=== PATIENT | male | born 1970 | race African-American/Black ===

== ENCOUNTER 2019-02-06 05:59 | Day surgery (SDC) | payer MEDICARE, MEDICAID ==
[~2019-02-06] VITALS: Ht 165.1 cm; Wt 69.9 kg
[2019-02-06] VITALS (9 sets, daily range): BP systolic 148–188; BP diastolic 84–104
[2019-02-06] MEDS ORDERED: Proparacaine 0.5% Opth Soln 15ml RIGHT EYE SCH (06:00)
[2019-02-06] MEDS ORDERED: DIPHENHYDRAMINE25 M1 ORAL (06:10)
[2019-02-06] MEDS ORDERED: CARVEDILOL25 MG ORAL (06:10)
[2019-02-06] MEDS ORDERED: CALCITRIOL0.25 MCG PO (06:10)
[2019-02-06] MEDS ORDERED: ALLOPURINOL100 M1 ORAL (06:10)
[2019-02-06] MEDS ORDERED: DOXAZOSIN MESYLA4 MG ORAL (06:10)
[2019-02-06] MEDS ORDERED: AMLODIPINE BESY10 MG ORAL (06:10)
[2019-02-06] MEDS ORDERED: ASPIR 8181 MG ORAL (06:10)
[2019-02-06] MEDS ORDERED: SENNA8.6 M2 PO (06:10)
[2019-02-06] MEDS ORDERED: LIPITOR80 MG ORAL (06:10)
[2019-02-06] MEDS: Tropicamide 1% Opth 15ml Soln RIGHT EYE SCH ×3 (06:24→06:40)
[2019-02-06] MEDS: Cyclopentolate 1% Opth Sol 2ml RIGHT EYE SCH ×3 (06:24→06:40)
[2019-02-06] MEDS: Phenylephrine 2.5% Op 2ml Soln RIGHT EYE SCH ×3 (06:24→06:40)
[2019-02-06] MEDS ORDERED: RENVELA0.8 GM ORAL (06:39)
[2019-02-06] MEDS ORDERED: BSS 500ml btl ONE ×2 (07:06→08:50)
[2019-02-06] MEDS ORDERED: BSS 15ml BTL ONE (07:06)
[2019-02-06] MEDS ORDERED: Povidone-Iodine 5% opth solution ONE (07:07)
[2019-02-06] MEDS ORDERED: Dexamethasone 4mg/ml vial ONE (07:10)
[2019-02-06] MEDS ORDERED: Goniotaire 2.5% Opth Soln - 15ml ONE (07:10)
[2019-02-06] MEDS ORDERED: Kenalog-40 1ml Vial ONE (07:10)
[2019-02-06] MEDS ORDERED: Pred Forte 1% Opth Susp 1ml ONE (07:10)
[2019-02-06] MEDS ORDERED: EPINEPHrine 1mg/1ml Amp ONE (07:10)
[2019-02-06] MEDS ORDERED: Polysporin Opth Oint 3.5gm ONE (07:10)
[2019-02-06] MEDS ORDERED: Lidocaine 2% MPF 5ml Vial INJ ONE (07:10)
[2019-02-06] MEDS ORDERED: Bupivacaine 0.75% 30ml vial INJ ONE (07:11)
[2019-02-06] MEDS ORDERED: Sodium Hyaluronate 10 mg/ml 0.85ml ONE (07:11)
[2019-02-06] MEDS ORDERED: Tetracaine 0.5% Opth 4ml Soln ONE (07:11)
[2019-02-06] MEDS ORDERED: Indocyanine Green 25mg Inj INJ ONE (07:15)
[2019-02-06] MEDS ORDERED: Alfentanil 2ml Inj ONE (07:18)
[2019-02-06] MEDS ORDERED: Sterile Water Irrig 1000ml IRRIG ONE (07:30)
[2019-02-06] MEDS ORDERED: Propofol 200mg/20ml IV ONE (07:30)
[2019-02-06] MEDS ORDERED: LR 1000ml ONE (07:30)
[2019-02-06] MEDS ORDERED: Lidocaine 1% MPF 10mg/ml 5ml ONE (07:30)
[2019-02-06] MEDS ORDERED: NS Irrig 1000ml ONE (07:30)
[2019-02-06] MEDS ORDERED: LR 1000ml 1,000 ML IVLG SCH (07:32)
--- NOTE | 2019-02-06 07:36 | Pre-Procedure Note/Attestation ---
Pre-Procedure Note/Attestation Complete Prior to Procedure Planned Procedure: right Procedure Narrative: PDR/TRD/VH OD Indications for Procedure Pre-Operative Diagnosis: PDR/TRD/VH OD plan for PPV Attestation I attest that I discussed the nature of the procedure; its benefits; risks and complications; and alternatives (and the risks and benefits of such alternatives ), prior to the procedure, with the patient (or the patient's legal product support sales representative). I attest that, if there was a reasonable possibility of needing a blood transfusion, the patient (or the patient's legal product support sales representative) was given the [facility] standardized written summary, pursuant to the [place] Blood Safety Act ([place] Health and Safety Code # 1645, as amended). I attest that I re-evaluated the patient just prior to the surgery and that there has been no change in the patient's H&P, except as documented below: Fredi Page M.D., MD Feb 06, 2019 07:36
--- NOTE | 2019-02-06 07:36 | Operative Note - PDOC ---
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 After review of the risks, benefits, alternative and the patient signed informed consent into the medical chart. Description of Procedure The patient was met in the pre-op area where informed consent was reviewed. The operative eye was verified, marked and dilated. The patient was transferred to the operative suite, where cardiopulmonary monitoring was established and peribulbar anesthetic was administered without complications. The eye was prepped and draped in sterile ophthalmic fashion. Under microscope visualization the 23 gauge infusion line was placed inferotemporally. After visualization of the tip in the vitreous cavity, the infusion line was turned on. The superotemporal and superonasal cannulas were placed. Under BIOM visualization, peripheral and core vitrectomy was performed. As the dense vitreous hemorrhage was cleared, view of the posterior pole was improved. There was tractional retinal detachment with multifocal areas of NVE/Gliosis that were elevated. As the vitreous was trimmed , the pre-retinal membranes were exposed. Kenalog was used to stain and the membranes were trimmed with combination techniques. The chandlier, ILM forceps and high mag contact lens was used to peel the membranes and release all possible traction. The peripheral hemorrhage was trimmed under scleral depression. The retina remained elevated and thus two retinotomies/retinectomies were created temporally and superonasally around two areas of dense gliosis and elevation to relieve the subretinal fluid. Dense gelatinous subretinal material was drained and the retina reattached significantly. The ILM was peeled over the macula partially. Endolaser was applied. PFO was then infused to completely drain the macular fluid and further peripheral PRP was applied. Air-fluid exchange was performed. Silicone oil was infused. The cannulas were removed. The eye maintained normal intraocular pressure. Subconjunctival vancomycin and dexamethasone were administered. The lid speculum was removed. The eye was cleaned of prep and drape. Atropine drop and Maxitrol ointment was applied. A pressure patch was placed. The patient was turned over to the anesthesia team and transferred in stable condition to the PACU. Fredi Page M.D., MD Feb 06, 2019 07:36
--- NOTE | 2019-02-06 07:38 | Anethesia Preoperative Eval ---
Anesthesia Pre-op PMH/ROS General Date of Evaluation: Feb 06, 2019 Time of Evaluation: 07:24 Anesthesiologist: Yomaira ASA Score: ASA 3 Mallampati Score Class I : Soft palate, uvula, fauces, pillars visible Class II: Soft palate, uvula, fauces visible Class III: Soft palate, base of uvula visible Class IV: Only hard plate visible Mallampati Classification: Class II Surgeon: Kaylee Diagnosis: Viteous Hemorrhage OD Surgical Procedure: Vitrectomy OD Anesthesia History: none Family History: no anesthesia problems Allergies: Coded Allergies: LISINOPRIL (Verified Allergy, Severe, Shortness of Breath, 02/05/19) PENICILLINS (Verified Allergy, Severe, throat swelling, 02/05/19) Uncoded Allergies: shellfish (Allergy, Severe, 02/06/19) shortness of breath, vomiting, throat swelling Medications: see eMAR Patient NPO?: Yes Past Medical History Cardiovascular: Reports: HTN, other - HL Pulmonary: Reports: asthma Gastrointestinal/Genitourinary: Reports: ESRD Neurologic/Psychiatric: Reports: CVA Endocrine: Reports: DM Anesthesia Pre-op Phys. Exam Physician Exam Last Vital Signs Date Time Temp Pulse Resp B/P (MAP) Pulse Ox O2 Delivery O2 Flow Rate FiO2 02/06/19 06:42 97.9 101 18 171/95 97 Room Air Constitutional: NAD Neurologic: CN 2-12 intact Cardiovascular: RRR Respiratory: CTA Gastrointestinal: S/NT/ND Airway Exam Mallampati Score: Class II MO: limited ROM: limited Teeth: missing, intact Anesthesia Pre-op A/P Labs Chemistry Test 02/06/19 06:30 Potassium Level 4.7 MMOL/L (3.5-5.1) Risk Assessment & Plan Assessment: ASA 3 Plan: TIVA Status Change Before Surgery: No Devendra Burnette MD Feb 06, 2019 07:38
[2019-02-06] MEDS ORDERED: fentaNYL 100 mcg/2 mL IV PRN (07:45)
[2019-02-06] MEDS ORDERED: Metoclopramide 10mg/2ml Inj IVP PRN (07:45)
[2019-02-06] MEDS ORDERED: Atropine Sulfate 0.4mg/ml inj IVP PRN (07:45)
[2019-02-06] MEDS ORDERED: Ketorolac 30mg Inj IV PRN ×2 (07:45)
[2019-02-06] MEDS ORDERED: HYDROcodone/Acetamin 5/325 tab ORAL PRN (07:45)
[2019-02-06] MEDS ORDERED: oxyCODONE HCL/Acetaminophen 5/325mg ORAL PRN (07:45)
[2019-02-06] MEDS ORDERED: Labetalol 5mg/ml 20ml vial IV PRN (07:45)
[2019-02-06] MEDS ORDERED: HYDROcodone/Acetamin 7.5/325 tab ORAL PRN (07:45)
[2019-02-06] MEDS ORDERED: Hydromorphone 0.5mg/0.5ml inj IVP PRN (07:45)
[2019-02-06] MEDS ORDERED: DiphenhydrAMINE 50mg/ml Inj IVP PRN (07:45)
[2019-02-06] MEDS ORDERED: LORazepam Inj 2mg/ml 1ml IV PRN (07:45)
[2019-02-06] MEDS ORDERED: Midazolam 2mg/2ml Inj IVP PRN (07:45)
[2019-02-06] MEDS ORDERED: Meperidine 50mg/ml Inj(FOR RIGORS ONLY) IVP PRN (07:45)
--- NOTE | 2019-02-06 07:56 | Immediate Post-Op Evaluation ---
Immediate Post-Op Evalulation Immediate Post-Op Evalulation Procedure: Vitrectomy OD Date of Evaluation: Feb 06, 2019 Time of Evaluation: 09:55 IV Fluids: 300 NS Blood Products: 0 Estimated Blood Loss: 2 Urinary Output: 0 Blood Pressure Systolic: 160 Blood Pressure Diastolic: 102 Pulse Rate: 101 Respiratory Rate: 16 O2 Sat by Pulse Oximetry: 97 Temperature (Fahrenheit): 97 Pain Score (1-10): 2 Nausea: No Vomiting: No Complications 0 Patient Status: awake, reacts, patent, none Hydration Status: adequate Devendra Burnette MD Feb 06, 2019 07:56
--- NOTE | 2019-02-06 07:57 | 48 Hour Post Anesthesia Eval ---
Post Anesthesia Evaluation Procedure: Vitrectomy OD Date of Evaluation: Feb 06, 2019 Time of Evaluation: 12:11 Blood Pressure Systolic: 159 0: 101 Pulse Rate: 98 Respiratory Rate: 18 Temperature (Fahrenheit): 97.4 O2 Sat by Pulse Oximetry: 96 Airway: patent Nausea: No Vomiting: No Pain Intensity: 1 Hydration Status: adequate Cardiopulmonary Status: Stable Mental Status/LOC: patient returned to baseline Follow-up Care/Observations: 0 Post-Anesthesia Complications: 0 Follow-up care needed: ready to discharge Devendra Burnette MD Feb 06, 2019 07:57
== END 2019-02-06 11:10 | disposition home or self-care (01) ==
LOC: SUR 05:59
DX: H43.11 Vitreous hemorrhage, right eye (principal); E11.3531 Type 2 diabetes mellitus with proliferative diabetic retinopathy with traction retinal detachment not involving the macula, right eye; E11.22 Type 2 diabetes mellitus with diabetic chronic kidney disease; I12.0 Hypertensive chronic kidney disease with stage 5 chronic kidney disease or end stage renal disease; N18.6 End stage renal disease; Z86.73 Personal history of transient ischemic attack (TIA), and cerebral infarction without residual deficits; Z88.0 Allergy status to penicillin; Z88.8 Allergy status to other drugs, medicaments and biological substances
CPT/HCPCS: 36415; 67042; 82962; 84132; J1100; J2250; J2704; J3301; J3370; J3490; 94003; 94150

== ENCOUNTER 2019-04-19 13:01 | Outpatient (CLI) | payer MEDICARE, MEDICAID ==
[~2019-04-19 13:01] MED LIST: ALLOPURINOL100 M1 ORAL; AMLODIPINE BESY10 MG ORAL; ASPIR 8181 MG ORAL; CALCITRIOL0.25 MCG PO; CARVEDILOL25 MG ORAL; DIPHENHYDRAMINE25 M1 ORAL; DOXAZOSIN MESYLA4 MG ORAL; LIPITOR80 MG ORAL; RENVELA0.8 GM ORAL; SENNA8.6 M2 PO
[2019-04-19 15:24] VITALS: BP 118/64
--- NOTE | 2019-04-19 21:30 | Consultation ---
DATE OF CONSULTATION: 04/19/2019 CHIEF COMPLAINT: Referral for colonoscopy given history of colonic polyps. PAST MEDICAL HISTORY: 1. Hypertension. 2. Asthma. 3. CVA. 4. Diabetes. 5. End-stage renal disease, on hemodialysis. PAST SURGICAL HISTORY: AV shunt placement. MEDICATIONS: Please see the medication reconciliation list. ALLERGIES: Penicillin and lisinopril. FAMILY HISTORY: No family history of GI malignancies. SOCIAL HISTORY: The patient denies any tobacco or alcohol usage. REVIEW OF SYSTEMS: A 10-point review of systems was performed and was only positive for some anus and testicular boils. PHYSICAL EXAMINATION: VITAL SIGNS: Temperature 97.8, blood pressure 118/64, pulse 90, and respirations 20. HEENT: Normocephalic and atraumatic. Sclerae anicteric. NECK: Supple. No evidence of obvious lymphadenopathy. CARDIOVASCULAR: Regular rate and rhythm. Plus S1 and S2. No obvious murmur. LUNGS: Decreased breath sounds bilaterally based on the supine exam. ABDOMEN: Soft and nontender. No rebound. No guarding. No peritoneal sign. EXTREMITIES: No cyanosis. No clubbing. No edema. ASSESSMENT: This is a 48-year-old male with numerous medical problems as listed above. Apparently, he had polyps 3 years ago and was told that he needs to have another colonoscopy in six months from the last colonoscopy, but apparently the patient did not get a colonoscopy done. He is here for repeat colonoscopy. PLAN: The patient was given instruction for colonoscopy. The risks and benefits of procedure was explained to him. We scheduled him for next Tuesday. I want to thank Dr. Zuhair Singleton for this kind referral. Richy Delarosa M.D. DR: SHY JOB#: [id number] CC: Zuhair Singleton M.D.; Fax#: [phone]
== END 2019-04-19 15:01 | disposition home or self-care (01) ==
LOC: PAN 13:01
DX: K63.5 Polyp of colon (principal); I10 Essential (primary) hypertension; E11.22 Type 2 diabetes mellitus with diabetic chronic kidney disease; I12.0 Hypertensive chronic kidney disease with stage 5 chronic kidney disease or end stage renal disease; N18.6 End stage renal disease; Z99.2 Dependence on renal dialysis; Z86.73 Personal history of transient ischemic attack (TIA), and cerebral infarction without residual deficits; Z88.0 Allergy status to penicillin; Z88.8 Allergy status to other drugs, medicaments and biological substances
CPT/HCPCS: G0463

== ENCOUNTER 2019-04-23 08:52 | Day surgery (SDC) | payer MEDICARE, MEDICAID ==
[2019-04-23] VITALS (7 sets, daily range): BP systolic 146–154; BP diastolic 64–87
[~2019-04-23] VITALS: Ht 165.1 cm; Wt 71.7 kg
[~2019-04-23 08:52] MED LIST changes: +LR 1000ml 1,000 ML IVLG SCH
[2019-04-23 10:41] LABS: HEMATOCRIT 39.3 % (42.0-52.0); HEMOGLOBIN 12.8 G/DL (14.2-18.0); MEAN CORPUSCULAR VOLUME 94 FL (80-99); PLATELET COUNT 63 K/UL (150-450); RED BLOOD COUNT 4.19 M/UL (4.70-6.10); RED CELL DISTRIBUTION WIDTH 14.4 % (11.6-14.8); WHITE BLOOD COUNT 4.9 K/UL (4.8-10.8)
[2019-04-23 10:59] LABS: ANION GAP 12 mmol/L (5-15); BLOOD UREA NITROGEN 60 mg/dL (7-18); CALCIUM 9.6 MG/DL (8.5-10.1); CARBON DIOXIDE 25 MMOL/L (21-32); CHLORIDE 102 MMOL/L (98-107); CREATININE 10.3 MG/DL (0.55-1.30); POTASSIUM 4.9 MMOL/L (3.5-5.1); SODIUM 139 MMOL/L (136-145)
[2019-04-23] MEDS ORDERED: NS 110ml ONE (11:00)
[2019-04-23] MEDS ORDERED: Propofol 200mg/20ml IV ONE (11:00)
[2019-04-23] MEDS ORDERED: Lidocaine 1% MPF 10mg/ml 5ml ONE (11:00)
[2019-04-23 11:04] LABS: ALANINE AMINOTRANSFERASE 10 U/L (12-78); ALBUMIN 3.3 G/DL (3.4-5.0); ALBUMIN/GLOBULIN RATIO 0.7 (1.0-2.7); ALKALINE PHOSPHATASE 103 U/L (46-116); ASPARTATE AMINO TRANSFERASE 17 U/L (15-37); BILIRUBIN,TOTAL 0.7 MG/DL (0.2-1.0)
--- NOTE | 2019-04-23 11:07 | Pre-Procedure Note/Attestation ---
Pre-Procedure Note/Attestation Complete Prior to Procedure Planned Procedure: not applicable Procedure Narrative: colonoscopy Indications for Procedure Pre-Operative Diagnosis: screening Attestation I attest that I discussed the nature of the procedure; its benefits; risks and complications; and alternatives (and the risks and benefits of such alternatives ), prior to the procedure, with the patient (or the patient's legal associate financial representative). I attest that, if there was a reasonable possibility of needing a blood transfusion, the patient (or the patient's legal associate financial representative) was given the [facility] standardized written summary, pursuant to the [place] Blood Safety Act ([place] Health and Safety Code # 1645, as amended). I attest that I re-evaluated the patient just prior to the surgery and that there has been no change in the patient's H&P, except as documented below: Richy Delarosa MD Apr 23, 2019 11:07
--- NOTE | 2019-04-23 11:07 | Short Stay Surgery H&P ---
History of Present Illness History of Present Illness Chief Complaint see recent office note HPI Robson Nesbitt is a 48 year old male who was admitted on for Colon Polyps Patient History Allergies: Coded Allergies: LISINOPRIL (Verified Allergy, Severe, Shortness of Breath, 04/23/19) THROAT SWELLS UP PENICILLINS (Verified Allergy, Severe, throat swelling, 02/05/19) Uncoded Allergies: shellfish (Allergy, Severe, 02/06/19) shortness of breath, vomiting, throat swelling Medication History Scheduled Allopurinol* (Allopurinol*), 100 MG ORAL DAILY, (Reported) Amlodipine Besylate* (Amlodipine Besylate*), 30 MG ORAL DAILY, (Reported) Aspirin* (Aspir 81*), 81 MG ORAL DAILY, (Reported) Calcitriol (Calcitriol), 0.25 MCG PO THREE TIMES A WEEK, (Reported) Carvedilol* (Carvedilol*), 25 MG ORAL EVERY 12 HOURS, (Reported) Doxazosin Mesylate* (Doxazosin Mesylate*), 8 MG ORAL BID, (Reported) Sevelamer Carbonate* (Renvela*), 800 MG ORAL THREE TIMES A DAY, (Reported) Physical Exam Vital Signs Last Vital Signs Date Time Temp Pulse Resp B/P (MAP) Pulse Ox O2 Delivery O2 Flow Rate FiO2 04/23/19 09:56 97.9 94 20 146/77 98 Room Air Labs Laboratory Tests Test 04/23/19 10:25 White Blood Count 4.9 K/UL (4.8-10.8) Red Blood Count 4.19 M/UL (4.70-6.10) L Hemoglobin 12.8 G/DL (14.2-18.0) L Hematocrit 39.3 % (42.0-52.0) L Mean Corpuscular Volume 94 FL (80-99) Mean Corpuscular Hemoglobin 30.4 PG (27.0-31.0) Mean Corpuscular Hemoglobin Concent 32.4 G/DL (32.0-36.0) Red Cell Distribution Width 14.4 % (11.6-14.8) Platelet Count 63 K/UL (150-450) L Mean Platelet Volume 10.7 FL (6.5-10.1) H Neutrophils (%) (Auto) % (45.0-75.0) Lymphocytes (%) (Auto) % (20.0-45.0) Monocytes (%) (Auto) % (1.0-10.0) Eosinophils (%) (Auto) % (0.0-3.0) Basophils (%) (Auto) % (0.0-2.0) Neutrophils % (Manual) Pending Lymphocytes % (Manual) Pending Platelet Estimate Pending Platelet Morphology Pending Sodium Level 139 MMOL/L (136-145) Potassium Level 4.9 MMOL/L (3.5-5.1) Chloride Level 102 MMOL/L (98-107) Carbon Dioxide Level 25 MMOL/L (21-32) Anion Gap 12 mmol/L (5-15) Blood Urea Nitrogen 60 mg/dL (7-18) H Creatinine 10.3 MG/DL (0.55-1.30) H Estimat Glomerular Filtration Rate 6.5 mL/min (>60) Glucose Level 100 MG/DL (74-106) Calcium Level 9.6 MG/DL (8.5-10.1) Total Bilirubin 0.7 MG/DL (0.2-1.0) Aspartate Amino Transf (AST/SGOT) 17 U/L (15-37) Alanine Aminotransferase (ALT/SGPT) 10 U/L (12-78) L Alkaline Phosphatase 103 U/L (46-116) Total Protein 8.1 G/DL (6.4-8.2) Albumin 3.3 G/DL (3.4-5.0) L Globulin 4.8 g/dL Albumin/Globulin Ratio 0.7 (1.0-2.7) L Plan Attestation Are the patient's medical conditions optimized for surgery? Richy Delarosa MD Apr 23, 2019 11:07
[2019-04-23] MEDS ORDERED: LR 1000ml 1,000 ML IVLG SCH (11:10)
[2019-04-23] MEDS ORDERED: Midazolam 2mg/2ml Inj IVP PRN (11:15)
[2019-04-23] MEDS ORDERED: fentaNYL 100 mcg/2 mL IV PRN (11:15)
[2019-04-23] MEDS ORDERED: Atropine Inj 1mg/10ml Syr IV PRN (11:15)
[2019-04-23] MEDS ORDERED: DiphenhydrAMINE 50mg/ml Inj IVP PRN (11:15)
--- NOTE | 2019-04-23 11:15 | Anethesia Preoperative Eval ---
Anesthesia Pre-op PMH/ROS General Date of Evaluation: Apr 23, 2019 Time of Evaluation: 11:03 Anesthesiologist: christofer ASA Score: ASA 4 Mallampati Score Class I : Soft palate, uvula, fauces, pillars visible Class II: Soft palate, uvula, fauces visible Class III: Soft palate, base of uvula visible Class IV: Only hard plate visible Mallampati Classification: Class II Surgeon: norma Diagnosis: colon polyps Surgical Procedure: colonoscopy Anesthesia History: none Social History: current smoker Family History: no anesthesia problems Allergies: Coded Allergies: LISINOPRIL (Verified Allergy, Severe, Shortness of Breath, 04/23/19) THROAT SWELLS UP PENICILLINS (Verified Allergy, Severe, throat swelling, 02/05/19) Uncoded Allergies: shellfish (Allergy, Severe, 02/06/19) shortness of breath, vomiting, throat swelling Medications: see eMAR Patient NPO?: Yes Past Medical History Cardiovascular: Reports: HTN Pulmonary: Reports: asthma Gastrointestinal/Genitourinary: Reports: ESRD - on hd (, , ) Endocrine: Reports: DM Anesthesia Pre-op Phys. Exam Physician Exam Last Vital Signs Date Time Temp Pulse Resp B/P (MAP) Pulse Ox O2 Delivery O2 Flow Rate FiO2 04/23/19 09:56 97.9 94 20 146/77 98 Room Air Constitutional: NAD Neurologic: CN 2-12 intact Cardiovascular: RRR Respiratory: CTA Gastrointestinal: S/NT/ND Airway Exam Mallampati Score: Class II MO: limited Neck: flexible TMD: 2fb ROM: limited Teeth: missing Anesthesia Pre-op A/P Labs Hematology Test 04/23/19 10:25 White Blood Count 4.9 K/UL (4.8-10.8) Red Blood Count 4.19 M/UL (4.70-6.10) L Hemoglobin 12.8 G/DL (14.2-18.0) L Hematocrit 39.3 % (42.0-52.0) L Mean Corpuscular Volume 94 FL (80-99) Mean Corpuscular Hemoglobin 30.4 PG (27.0-31.0) Mean Corpuscular Hemoglobin Concent 32.4 G/DL (32.0-36.0) Red Cell Distribution Width 14.4 % (11.6-14.8) Platelet Count 63 K/UL (150-450) L Mean Platelet Volume 10.7 FL (6.5-10.1) H Neutrophils (%) (Auto) % (45.0-75.0) Lymphocytes (%) (Auto) % (20.0-45.0) Monocytes (%) (Auto) % (1.0-10.0) Eosinophils (%) (Auto) % (0.0-3.0) Basophils (%) (Auto) % (0.0-2.0) Differential Total Cells Counted 100 Neutrophils % (Manual) 55 % (45-75) Lymphocytes % (Manual) 26 % (20-45) Monocytes % (Manual) 15 % (1-10) H Eosinophils % (Manual) 4 % (0-3) H Basophils % (Manual) 0 % (0-2) Band Neutrophils 0 % (0-8) Platelet Estimate Adequate Platelet Morphology Normal Chemistry Test 04/23/19 10:25 Sodium Level 139 MMOL/L (136-145) Potassium Level 4.9 MMOL/L (3.5-5.1) Chloride Level 102 MMOL/L (98-107) Carbon Dioxide Level 25 MMOL/L (21-32) Anion Gap 12 mmol/L (5-15) Blood Urea Nitrogen 60 mg/dL (7-18) H Creatinine 10.3 MG/DL (0.55-1.30) H Estimat Glomerular Filtration Rate 6.5 mL/min (>60) Glucose Level 100 MG/DL (74-106) Calcium Level 9.6 MG/DL (8.5-10.1) Total Bilirubin 0.7 MG/DL (0.2-1.0) Aspartate Amino Transf (AST/SGOT) 17 U/L (15-37) Alanine Aminotransferase (ALT/SGPT) 10 U/L (12-78) L Alkaline Phosphatase 103 U/L (46-116) Total Protein 8.1 G/DL (6.4-8.2) Albumin 3.3 G/DL (3.4-5.0) L Globulin 4.8 g/dL Albumin/Globulin Ratio 0.7 (1.0-2.7) L Studies Pre-op Studies: EKG - nsr, lvh, prolonged qt Risk Assessment & Plan Assessment: asa4 Plan: mac Status Change Before Surgery: No Pre-Antibiotics Drug: na Willis,Cecy MD Apr 23, 2019 11:15
--- NOTE | 2019-04-23 11:40 | Endoscopy Procedure Note ---
Endoscopy Procedure Note General Indication for Procedure: screening colon, Procedures Performed: colonoscopy Operative Findings/Diagnosis: hemorrhoids Specimen: none Pt Tolerated Procedure Well: Yes Estimated Blood Loss: none Anesthesia Anesthesiologist: eunice Anesthesia: MAC Inserted Devices Implant(s) used?: No Quality Quality of Bowel Preparation: Fair Did scope reach the cecum?: Yes Was there any complications?: No GI Core Measures 50 yrs or older w/o bx or poly: No 10yrs. F/U recommended: Yes If not recommended, why?: Above average risk 18 years or older w/prev. colo: Yes <3yrs. since last colonoscopy: No Richy Delarosa MD Apr 23, 2019 11:40
--- NOTE | 2019-04-23 11:51 | Immediate Post-Op Evaluation ---
Immediate Post-Op Evalulation Immediate Post-Op Evalulation Procedure: colonoscopy Date of Evaluation: Apr 23, 2019 Time of Evaluation: 11:50 IV Fluids: 100ml 0.9ns Blood Products: none Estimated Blood Loss: negligible Blood Pressure Systolic: 154 Blood Pressure Diastolic: 64 Pulse Rate: 95 Respiratory Rate: 18 O2 Sat by Pulse Oximetry: 100 Temperature (Fahrenheit): 97.3 Pain Score (1-10): 0 Nausea: No Vomiting: No Complications none Patient Status: awake, reacts, patent Hydration Status: adequate Drug: Cecy Kim MD Apr 23, 2019 11:51
--- NOTE | 2019-04-23 11:51 | 48 Hour Post Anesthesia Eval ---
Post Anesthesia Evaluation Procedure: colonoscopy Date of Evaluation: Apr 23, 2019 Time of Evaluation: 11:52 Blood Pressure Systolic: 153 0: 67 Pulse Rate: 87 Respiratory Rate: 18 Temperature (Fahrenheit): 97.3 O2 Sat by Pulse Oximetry: 100 Airway: patent Nausea: No Vomiting: No Pain Intensity: 0 Hydration Status: adequate Cardiopulmonary Status: stable Mental Status/LOC: patient returned to baseline Post-Anesthesia Complications: none Follow-up care needed: N/A Cecy Pedro MD Apr 23, 2019 11:51
--- NOTE | 2019-04-23 19:45 | Procedure Note ---
DATE OF PROCEDURE: 04/23/2019 SURGEON: Richy Delarosa M.D. PROCEDURE: Colonoscopy. ANESTHESIA: Dr. Cook. INSTRUMENT: Olympus adult flexible colonoscope. INDICATIONS: Screening colonoscopy evaluation. REASON FOR PROCEDURE: The procedure, risks, benefits, and possible consequences, including hemorrhage, aspiration, perforation and infection, and alternative treatments, were explained to the patient/legal guardian by Dr. Richy Delarosa and the patient/legal guardian understood and accepted these risks. PROCEDURE: After informed consent was obtained and the patient was adequately sedated, first rectal exam was performed, which was normal. Then, the scope was advanced from rectum into the cecum. Quality of prep unfortunately was poor in the right colon, much better in the left colon. I would say about 30% of the right colon was not examined given this prep especially in cecum area. There was a tattooed area at about 30 cm from the anal verge mostly probably from prior polypectomy site. We could not see any polyp in this examination although the prep was not adequate. Retroflexion of rectum showed small nonbleeding internal hemorrhoids. SUMMARY OF FINDINGS: 1. Poor colonic prep. 2. Internal hemorrhoids. RECOMMENDATIONS: Given this prep, we will recommend repeat colonoscopy in one year for evaluation of right colon. Richy Delarosa M.D. DR: Ana Lilia JOB#: [id number] CC:
== END 2019-04-23 12:45 | disposition home or self-care (01) ==
LOC: GAS 08:52
DX: Z12.11 Encounter for screening for malignant neoplasm of colon (principal); K64.8 Other hemorrhoids; I12.0 Hypertensive chronic kidney disease with stage 5 chronic kidney disease or end stage renal disease; E11.22 Type 2 diabetes mellitus with diabetic chronic kidney disease; N18.6 End stage renal disease; Z99.2 Dependence on renal dialysis; Z88.0 Allergy status to penicillin; Z88.8 Allergy status to other drugs, medicaments and biological substances; Z79.82 Long term (current) use of aspirin; Z79.899 Other long term (current) drug therapy
CPT/HCPCS: 36415; 80053; 82962; 85007; 85025; 93005; G0121; J2704; 94003; 94150

== ENCOUNTER 2019-06-25 13:02 | Outpatient (CLI) | payer MEDICARE, MEDICAID ==
[~2019-06-25 13:02] MED LIST changes: -LR 1000ml 1,000 ML IVLG SCH
--- NOTE | 2019-06-25 13:50 | General Progress Note ---
Assessment/Plan Problem List: (1) Constipation ICD Codes: K59.00 - Constipation, unspecified SNOMED: 77432103 (2) Colon polyps ICD Codes: K63.5 - Polyp of colon SNOMED: 34294011 Assessment/Plan: s/p colonoscopy poor prep SUMMARY OF FINDINGS: 1. Poor colonic prep. 2. Internal hemorrhoids. RECOMMENDATIONS: Given this prep, we will recommend repeat colonoscopy in one year for evaluation of right colon. Subjective ROS Limited/Unobtainable: Yes Allergies: Coded Allergies: LISINOPRIL (Verified Allergy, Severe, Shortness of Breath, 04/23/19) THROAT SWELLS UP PENICILLINS (Verified Allergy, Severe, throat swelling, 02/05/19) Uncoded Allergies: shellfish (Allergy, Severe, 02/06/19) shortness of breath, vomiting, throat swelling Objective General Appearance: alert EENT: normal ENT inspection Neck: supple Cardiovascular: normal rate Respiratory/Chest: lungs clear Abdomen: non tender, soft, hypoactive bowel sounds Extremities: non-tender Richy Delarosa MD Jun 25, 2019 13:50
[2019-06-25 15:31] VITALS: BP 121/67
== END 2019-06-25 15:56 | disposition home or self-care (01) ==
LOC: PAN 13:02
DX: K59.00 Constipation, unspecified (principal); K63.5 Polyp of colon; K64.8 Other hemorrhoids

== ENCOUNTER 2019-07-16 07:14 | Inpatient (IN) | payer MEDICARE, MEDICAID ==
[~2019-07-16] VITALS: Ht 166.4 cm; Wt 68.9 kg
[2019-07-16] VITALS (29 sets, daily range): BP systolic 79–169; BP diastolic 41–100
--- NOTE | 2019-07-16 08:20 | NUR ---
IV NS WAS STARTED BY VIRGILIO PEREZ RN. NO S/S OF INFILTRATION.
[2019-07-16] MEDS ORDERED: Propofol 200mg/20ml IV ONE (09:00)
[2019-07-16] MEDS ORDERED: Sterile Water Irrig 1000ml IRRIG ONE (09:00)
[2019-07-16] MEDS ORDERED: LR 1000ml ONE (09:00)
[2019-07-16] MEDS ORDERED: Flumazenil 0.1mg/ml 5ml Inj IV ONE (09:00)
--- NOTE | 2019-07-16 09:00 | Pre-Procedure Note/Attestation ---
Pre-Procedure Note/Attestation Complete Prior to Procedure Procedure Narrative: Examination Under Anesthesia and Excision of Scrotal lesion Indications for Procedure Pre-Operative Diagnosis: rectal pain and non healing scrotal wound Attestation I attest that I discussed the nature of the procedure; its benefits; risks and complications; and alternatives (and the risks and benefits of such alternatives ), prior to the procedure, with the patient (or the patient's legal membership sales representative). I attest that, if there was a reasonable possibility of needing a blood transfusion, the patient (or the patient's legal membership sales representative) was given the [facility] standardized written summary, pursuant to the [place] Blood Safety Act ([place] Health and Safety Code # 1645, as amended). I attest that I re-evaluated the patient just prior to the surgery and that there has been no change in the patient's H&P, except as documented below: Zenon Galloway Jul 16, 2019 09:00
[2019-07-16] MEDS ORDERED: LR 1000ml 1,000 ML IVLG SCH (09:05)
[2019-07-16] MEDS ORDERED: Gelfoam Size TOPIC ONE (09:09)
[2019-07-16] MEDS ORDERED: Lidocaine HCl 2% Jelly 6ml Tube TOPIC ONE (09:09)
[2019-07-16] MEDS ORDERED: Bupivacaine w/Epi 0.5% 30ml Vial INJ ONE (09:09)
--- NOTE | 2019-07-16 09:14 | Anethesia Preoperative Eval ---
Anesthesia Pre-op PMH/ROS General Date of Evaluation: Jul 16, 2019 Time of Evaluation: 09:16 Anesthesiologist: Yomaira ASA Score: ASA 3 Mallampati Score Class I : Soft palate, uvula, fauces, pillars visible Class II: Soft palate, uvula, fauces visible Class III: Soft palate, base of uvula visible Class IV: Only hard plate visible Mallampati Classification: Class III Surgeon: Taran Diagnosis: Scrotal Mass Surgical Procedure: Anal Exam Under Anesthesia Anesthesia History: none Family History: no anesthesia problems Allergies: Coded Allergies: LISINOPRIL (Verified Allergy, Severe, Shortness of Breath, 07/02/19) THROAT SWELLS UP PENICILLINS (Verified Allergy, Severe, throat swelling, 07/02/19) Uncoded Allergies: shellfish (Allergy, Severe, 02/06/19) shortness of breath, vomiting, throat swelling Medications: see eMAR Patient NPO?: Yes Past Medical History Cardiovascular: Reports: HTN, other - HL Pulmonary: Reports: asthma Gastrointestinal/Genitourinary: Reports: GERD, ESRD - Dialysis, other - Hemorrhoids Neurologic/Psychiatric: Reports: CVA Endocrine: Reports: DM HEENT: Reports: cataract (L), cataract (R) PSxH Narrative: Cat Ext IOL Bilateral, Testicle Sx Anesthesia Pre-op Phys. Exam Physician Exam Last Vital Signs Date Time Temp Pulse Resp B/P (MAP) Pulse Ox O2 Delivery O2 Flow Rate FiO2 07/16/19 08:23 Room Air 07/16/19 08:09 97.8 96 20 148/78 97 Constitutional: NAD Neurologic: CN 2-12 intact Cardiovascular: RRR Respiratory: CTA Gastrointestinal: S/NT/ND Airway Exam Mallampati Score: Class III MO: limited ROM: limited Teeth: missing, intact Anesthesia Pre-op A/P Labs Chemistry Test 07/16/19 09:03 Potassium Level Pending Risk Assessment & Plan Assessment: ASA 3 Plan: TIVA, SED Status Change Before Surgery: No Pre-Antibiotics Dru Grams Cefoxitin IV Given Within 1 Hr of Incision: Yes Time Given: 09:41 Devendra Burnette MD Jul 16, 2019 09:14
[2019-07-16] MEDS ORDERED: Acetaminophen (Non formulary) 100 ML IV ONE (09:15)
[2019-07-16] MEDS ORDERED: Hydromorphone 0.5mg/0.5ml inj IVP PRN (09:15)
[2019-07-16] MEDS ORDERED: Labetalol 5mg/ml 20ml vial IV PRN (09:15)
[2019-07-16] MEDS ORDERED: fentaNYL 100 mcg/2 mL IV PRN (09:15)
[2019-07-16] MEDS ORDERED: LORazepam Inj 2mg/ml 1ml IV PRN ×2 (09:15→14:00)
[2019-07-16] MEDS ORDERED: Meperidine 50mg/ml Inj(FOR RIGORS ONLY) IVP PRN (09:15)
[2019-07-16] MEDS ORDERED: HYDROcodone/Acetamin 5/325 tab ORAL PRN (09:15)
[2019-07-16] MEDS ORDERED: Midazolam 2mg/2ml Inj IVP PRN (09:15)
[2019-07-16] MEDS ORDERED: Atropine Sulfate 0.4mg/ml inj IVP PRN (09:15)
[2019-07-16] MEDS ORDERED: DiphenhydrAMINE 50mg/ml Inj IVP PRN (09:15)
[2019-07-16] MEDS ORDERED: oxyCODONE HCL/Acetaminophen 5/325mg ORAL PRN (09:15)
[2019-07-16] MEDS ORDERED: HYDROcodone/Acetamin 7.5/325 tab ORAL PRN (09:15)
[2019-07-16] MEDS ORDERED: Metoclopramide 10mg/2ml Inj IVP PRN ×2 (09:15→13:45)
[2019-07-16] MEDS ORDERED: Ketorolac 30mg Inj IV PRN ×2 (09:15)
--- NOTE | 2019-07-16 09:20 | Immediate Post-Op Evaluation ---
Immediate Post-Op Evalulation Immediate Post-Op Evalulation Procedure: Anl Exam Under Anesthesia Date of Evaluation: Jul 16, 2019 Time of Evaluation: 10:57 IV Fluids: 700 NS Blood Products: 0 Estimated Blood Loss: 5 Urinary Output: 0 Blood Pressure Systolic: 99 Blood Pressure Diastolic: 72 Pulse Rate: 94 Respiratory Rate: 12 O2 Sat by Pulse Oximetry: 100 Temperature (Fahrenheit): 97.4 Pain Score (1-10): 2 Nausea: No Vomiting: No Complications 0 Patient Status: awake, reacts, patent, none Hydration Status: adequate Dru Grams Cefoxitin IV Given Within 1 Hr of Incision: Yes Time Given: 09:41 Devendra Burnette MD Jul 16, 2019 09:20
[2019-07-16] MEDS ORDERED: NS Irrig 1000ml IRRIG ONE ×2 (09:22→09:56)
[2019-07-16] MEDS ORDERED: Sodium Chloride 10ml vial INJ ONE (09:23)
[2019-07-16] MEDS ORDERED: Lidocaine 1% Plain 30 ml INJ ONE (09:23)
[2019-07-16] MEDS ORDERED: cefOXitin 2gm Inj ONE (09:26)
[2019-07-16] MEDS ORDERED: Bacitracin 50000 Units Vial ONE (09:29)
[2019-07-16] MEDS ORDERED: EPINEPHrine 1mg/1ml Amp ONE (10:28)
[2019-07-16] MEDS ORDERED: Atropine Inj 1mg/10ml Syr ONE (10:28)
--- NOTE | 2019-07-16 10:46 | NUR ---
1046- RECEIVED FROM OR STATUS POST CODE,HOOKED TO HEALTH SAFETY ENGINEER SINUS TACH HR 101 RR 14 BP 96/72, ATTACHED TO [facility] VENT WITH THE FF SETTINGS SIMV 12 TV 500 FIO2 100% AND PEEP OF 5. PATIENT STILL UNRESPONSIVE, PUPIL EQUALLY REACTIVE TO LIGHT, NO RESPONSE YET TO PAINFUL STIMULI.ANESTHESIOLOGIST AT BED SIDE.WILL CONTINUE TO MONITOR.
[2019-07-16 12:14] LABS: BASOPHILS % (AUTO) 0.4 % (0.0-2.0); EOSINOPHILS % (AUTO) 3.9 % (0.0-3.0); HEMATOCRIT 38.9 % (42.0-52.0); HEMOGLOBIN 12.7 G/DL (14.2-18.0); LYMPHOCYTES % (AUTO) 9.7 % (20.0-45.0); MEAN CORPUSCULAR VOLUME 101 FL (80-99); MONOCYTES % (AUTO) 3.5 % (1.0-10.0); NEUTROPHILS % (AUTO) 82.5 % (45.0-75.0); PLATELET COUNT 113 K/UL (150-450); RED BLOOD COUNT 3.87 M/UL (4.70-6.10); RED CELL DISTRIBUTION WIDTH 14.9 % (11.6-14.8); WHITE BLOOD COUNT 8.6 K/UL (4.8-10.8)
--- NOTE | 2019-07-16 12:20 | NUR ---
NURSE NOTES: Report received from Monse Burns RN. Pt arrived in the unit via hospital bed from OR. Upper body responds to pain. No eye opening. Non-verbal. Left eye +2 and right eye +3 sluggish. Sinus tachy on teletypesetter monitor. 100-110's. Orally intubated ETT 8.0 at 24cm right lip line. AC 14, TV 600, FiO2 50%, P 5. O2 sat 100%, RR 14. Afebrile. Dressing on scrotal I+D area dry and intact. ROYA AV shunt for HD noted. IV to right hand G20 patent and asymptomatic. SCD is on from OR. Bed in lowest position. Side rails up x3. Will resume plan of care.
--- NOTE | 2019-07-16 12:50 | GI Initial Consult Note ---
History of Present Illness General Date patient seen: Jul 16, 2019 Time patient seen: 12:42 Referring physician: ANT FERNANDEZ Reason for Consultation: ANEMIA Present Illness HPI This is a 48-year-old male patient that presented with rectal pain and a nonhealing scrotal wound for an outpatient surgical excision of a scrotal lesion. Patient has a history of end-stage renal disease on dialysis, hypertension, diabetes mellitus. During the surgery, patient became asystolic, intubated and transferred to the ICU. Patient seen, intubated with no apparent distress with no active signs or symptoms of any nausea vomiting. Laboratory reviewed; macrocytic anemia, coag panel pending, CMP pending. The patient had a colonoscopy performed in April 2019 noted with poor colonic prep and internal hemorrhoids. Home Meds Reported Medications Sevelamer Carbonate* (RENVELA*) 0.8 Gm Powd.pack, 800 MG ORAL THREE TIMES A DAY , PACK 02/06/19 Doxazosin Mesylate* (DOXAZOSIN MESYLATE*) 4 Mg Tablet, 8 MG ORAL BID, TAB 02/06/19 Carvedilol* (CARVEDILOL*) 25 Mg Tablet, 25 MG ORAL EVERY 12 HOURS, TAB 02/06/19 Amlodipine Besylate* (AMLODIPINE BESYLATE*) 10 Mg Tablet, 30 MG ORAL DAILY, TAB 02/06/19 Allopurinol* (ALLOPURINOL*) 100 Mg Tablet, 100 MG ORAL DAILY, TAB 02/06/19 Aspirin* (ASPIR 81*) 81 Mg Tablet.dr, 81 MG ORAL DAILY, TAB 02/06/19 Calcitriol (CALCITRIOL) 0.25 Mcg Capsule, 0.25 MCG PO THREE TIMES A WEEK, CAP 02/06/19 Med list reviewed/reconciled: Yes Allergies: Coded Allergies: LISINOPRIL (Verified Allergy, Severe, Shortness of Breath, 07/02/19) THROAT SWELLS UP PENICILLINS (Verified Allergy, Severe, throat swelling, 07/02/19) Uncoded Allergies: shellfish (Allergy, Severe, 02/06/19) shortness of breath, vomiting, throat swelling Patient History Limited by: medical condition History Provided By: Medical Record Past Medical History: HTN, diabetes, other - ESRD Social History: Reports: smoking Review of Systems All Other Systems: negative except mentioned in HPI Physical Exam Vital Signs Date Time Temp Pulse Resp B/P (MAP) Pulse Ox O2 Delivery O2 Flow Rate FiO2 07/16/19 08:09 97.8 96 20 148/78 97 07/16/19 08:23 Room Air 07/16/19 10:46 100 07/16/19 11:39 45.0 Sp02 EP Interpretation: reviewed, normal Labs Laboratory Tests Test 07/16/19 09:03 07/16/19 11:15 07/16/19 12:05 Potassium Level 3.2 MMOL/L (3.5-5.1) L Pending Arterial Blood pH 7.273 (7.350-7.450) Arterial Blood Partial Pressure CO2 47.7 mmHg (35.0-45.0) H Arterial Blood Partial Pressure O2 409.6 mmHg (75.0-100.0) H Arterial Blood HCO3 21.6 mmol/L (22.0-26.0) L Arterial Blood Oxygen Saturation 99.4 % (95-100) Arterial Blood Base Excess -5.4 (-2-2) L Landon Test Positive White Blood Count 8.6 K/UL (4.8-10.8) Red Blood Count 3.87 M/UL (4.70-6.10) L Hemoglobin 12.7 G/DL (14.2-18.0) L Hematocrit 38.9 % (42.0-52.0) L Mean Corpuscular Volume 101 FL (80-99) H Mean Corpuscular Hemoglobin 32.7 PG (27.0-31.0) H Mean Corpuscular Hemoglobin Concent 32.5 G/DL (32.0-36.0) Red Cell Distribution Width 14.9 % (11.6-14.8) H Platelet Count 113 K/UL (150-450) L Mean Platelet Volume 10.3 FL (6.5-10.1) H Neutrophils (%) (Auto) 82.5 % (45.0-75.0) H Lymphocytes (%) (Auto) 9.7 % (20.0-45.0) L Monocytes (%) (Auto) 3.5 % (1.0-10.0) Eosinophils (%) (Auto) 3.9 % (0.0-3.0) H Basophils (%) (Auto) 0.4 % (0.0-2.0) Prothrombin Time Pending Prothromb Time International Ratio Pending Activated Partial Thromboplast Time Pending Sodium Level Pending Chloride Level Pending Carbon Dioxide Level Pending Blood Urea Nitrogen Pending Creatinine Pending Estimat Glomerular Filtration Rate Pending Glucose Level Pending Calcium Level Pending Total Bilirubin Pending Aspartate Amino Transf (AST/SGOT) Pending Alanine Aminotransferase (ALT/SGPT) Pending Alkaline Phosphatase Pending Troponin I Pending Pro-B-Type Natriuretic Peptide Pending Total Protein Pending Albumin Pending Globulin Pending General Appearance: no apparent distress Head: normocephalic EENT: PERRL/EOMI, normal ENT inspection Neck: supple Respiratory: normal breath sounds, no respiratory distress, other - intubated Cardiovascular: normal rate Gastrointestinal: normal inspection, non tender, soft, normal bowel sounds, non -distended Rectal: deferred Genitourinary: deferred Neurologic: oriented x3, normal inspection Psychiatric: normal inspection, judgement/insight normal, memory normal Skin: normal inspection, normal color, no rash, warm/dry, palpation normal, well hydrated Lymphatic: normal inspection, no adenopathy Current Medications Current Medications Medications (Trade) Dose Ordered Sig/David Route PRN Reason Start Time Stop Time Status Last Admin Dose Admin Acetaminophen/ Hydrocodone Bitart ([place] 5/325) 1 tab Q1H PRN ORAL Mild Pain (Pain Scale 1-3) 07/16/19 09:15 07/16/19 14:00 Acetaminophen/ Hydrocodone Bitart ([place] 7.5/325) 1 tab Q1H PRN ORAL Moderate Pain (Pain Scale 4-6) 07/16/19 09:15 07/16/19 14:00 Al Hydroxide/Mg Hydroxide (Mylanta) 15 ml Q1H PRN ORAL gi upset 07/16/19 09:15 07/16/19 14:00 Allopurinol (Zyloprim) 100 mg DAILY ORAL 07/17/19 09:00 08/16/19 08:59 UNV Atropine Sulfate (Atropine 0.4mg/ ml) 0.5 mg Q5M PRN IVP HR<40 07/16/19 09:15 07/16/19 14:00 Carvedilol (Coreg) 25 mg EVERY 12 HOURS ORAL 07/16/19 21:00 08/15/19 20:59 UNV Diphenhydramine HCl (Benadryl) 25 mg Q15M PRN IVP Itching 1/27/20 09:15 07/16/19 14:00 Fentanyl Citrate (Sublimaze 100 mcg/2 mL) 25 mcg Q10M PRN IV Moderate Pain (Pain Scale 4-6) 07/16/19 09:15 07/16/19 14:00 Hydralazine HCl (Apresoline) 5 mg Q30M PRN IV SBP>160 / DBP>90 07/16/19 09:15 07/16/19 14:00 Hydromorphone HCl (Dilaudid) 0.5 mg Q15M PRN IVP Severe Pain (Pain Scale 7-10) 07/16/19 09:15 07/16/19 14:00 Ketorolac Tromethamine (Toradol 30mg) 15 mg Q1H PRN IV Moderate Breakthru Pain (5-7) 07/16/19 09:15 07/16/19 14:00 Ketorolac Tromethamine (Toradol 30mg) 30 mg Q1H PRN IV Severe Breakthru Pain (>7) 07/16/19 09:15 07/16/19 14:00 Labetalol HCl (Normodyne) 5 mg Q10M PRN IV SBP>160 / DBP>90 07/16/19 09:15 07/16/19 14:00 Lorazepam (Ativan 2mg/ml 1ml) 1 mg Q15M PRN IV For Anxiety 07/16/19 09:15 07/16/19 14:00 Meperidine HCl (Demerol) 25 mg Q5M PRN IVP Shivering.May repeat x 1 07/16/19 09:15 07/16/19 14:00 Metoclopramide HCl (Reglan) 10 mg Q1H PRN IVP Nausea & Vomiting 07/16/19 09:15 07/16/19 14:00 Midazolam HCl (Versed 2mg/2ml vial) 1 mg Q15M PRN IVP For Anxiety 07/16/19 09:15 07/16/19 14:00 Ondansetron HCl (Zofran) 4 mg Q1H PRN IVP Nausea & Vomiting 07/16/19 09:15 07/16/19 14:00 Oxycodone/ Acetaminophen (Percocet 5-325) 1 tab Q1H PRN ORAL Severe Pain (Pain Scale 7-10) 07/16/19 09:15 07/16/19 14:00 Sevelamer Carbonate (Renvela) 800 mg THREE TIMES A DAY ORAL 07/16/19 13:00 08/15/19 12:59 UNV Sodium Chloride 1,000 ml @ 50 mls/hr Q20H IVLG 07/16/19 09:00 08/15/19 08:59 GI: Plan Problems: (1) ESRD (end stage renal disease) (2) Diabetes mellitus (3) Hypertension (4) Anemia (5) Constipation Plan Patient not stable for any GI procedures at this time follow up cardiology recs Anemia work-up Occult blood stool to rule out any GI bleed prn transfusions ppi NGT insertion will follow Discussed with Dr. Delarosa. Thank you for this patient referral, we will follow. The patient was seen and examined at bedside and all new and available data was reviewed in the patients chart. I agree with the above findings, impression and plan. (Patient seen earlier today. Signature stamp does not reflect patient encounter time.). - MD Cris FernandezPhoenix Indian Medical CenterKamran LEGAL RECORDS CLERK Jul 16, 2019 12:50
[2019-07-16] MEDS ORDERED: Renvela 800mg Pkt ORAL SCH (13:00)
--- NOTE | 2019-07-16 13:08 | Diagnostic Imaging Report ---
Indication: Dyspnea Comparison: None A single view chest radiograph was obtained. Findings: Vascular congestion demonstrated with mild cardiomegaly. Bilateral pleural effusions are present. Endotracheal tube is 3 cm above the marvel in good position. IMPRESSION: Pulmonary edema
[2019-07-16 13:14] LABS: ANION GAP 10 mmol/L (5-15); BLOOD UREA NITROGEN 67 mg/dL (7-18); CARBON DIOXIDE 26 MMOL/L (21-32); CHLORIDE 105 MMOL/L (98-107); CREATININE 11.5 MG/DL (0.55-1.30); POTASSIUM 5.4 MMOL/L (3.5-5.1); SODIUM 141 MMOL/L (136-145)
[2019-07-16 13:19] LABS: ALANINE AMINOTRANSFERASE 46 U/L (12-78); ALBUMIN 2.9 G/DL (3.4-5.0); ALBUMIN/GLOBULIN RATIO 0.8 (1.0-2.7); ALKALINE PHOSPHATASE 136 U/L (46-116); ASPARTATE AMINO TRANSFERASE 44 U/L (15-37); BILIRUBIN,TOTAL 0.4 MG/DL (0.2-1.0)
--- NOTE | 2019-07-16 13:39 | Brief Operative Note ---
Immediate Post Operative Note Operative Note Pre-op Diagnosis: rectal pain and non healing scrotal wound Procedure: 1. excision of scrotal lesion - aborted Post-op Diagnosis: same as pre-op Surgeon: froy Anesthesiologist: christopher Anesthesia: local, MAC Specimen: yes Complications: yes - CVA Condition: unstable Fluids: see records Estimated Blood Loss: minimal Drains: none Implant(s) used?: No Zenon Galloway Jul 16, 2019 13:39
[2019-07-16] MEDS ORDERED: Milk of Magnesia 30ml Ud ORAL PRN (13:45)
[2019-07-16] MEDS ORDERED: Sennosides 8.6mg tab ORAL PRN (13:45)
[2019-07-16] MEDS ORDERED: Acetaminophen 650 MG SUPP RECTAL PRN (13:45)
[2019-07-16] MEDS ORDERED: Morphine Sulfate 4mg/ml Inj (IV USE ONLY) IVP PRN ×2 (13:45→14:00)
[2019-07-16] MEDS ORDERED: DiphenhydrAMINE 25mg Tab ORAL PRN (13:45)
[2019-07-16] MEDS ORDERED: Morphine Sulfate 2mg/ml Inj(IV/IM USE ONLY) IVP PRN ×2 (13:45)
--- NOTE | 2019-07-16 13:50 | Consultation ---
Consult Note Consult Note asked to eval for dialysis management in OR foe scrotal lesion - during procedure had asystole now intubated in ICU has left arm fistula with bruit 48 y/o M with hx of ESRD on HD via L arm AVF, Dm2, HTN, internal hemorrhoids who was admitted on 07/16 for ambulatory surgical excision of scrotal lesion. Patient has rectal pain and a non healing scrotal wound. During the surgery, patient became asystolic, CPR started and patient was intubated and transferred to ICU. Coded Allergies: LISINOPRIL (Verified Allergy, Severe, Shortness of Breath, 07/02/19) THROAT SWELLS UP PENICILLINS (Verified Allergy, Severe, throat swelling, 07/02/19) Uncoded Allergies: shellfish (Allergy, Severe, 02/06/19) shortness of breath, vomiting, throat swelling . Assessment/Plan ESRD- high K BP low at this time s/p Asystole in OR support BP Pulm support HD today 2D echo per orders Daniel Delgadillo MD Jul 16, 2019 13:50
[2019-07-16] MEDS ORDERED: Albuterol/Ipratropium 3ml neb HHN PRN (14:00)
--- NOTE | 2019-07-16 14:00 | NUR ---
NURSE NOTES: Dr Galloway and Dr Hallman here to see the patient. Dr Galloway assessed the patient and patient move arms and upper body to pain. Updated him with pt's current condition. Will continue to monitor.
--- NOTE | 2019-07-16 14:01 | Pulmonolgy Critical Care Note ---
Critical Care - Asmt/Plan Problems: (1) Cardiac arrest (2) Acute respiratory failure (3) ESRD (end stage renal disease) (4) Diabetes mellitus Respiratory: monitor respiratory rate, adjust FIO2, CXR, ABG Cardiac: continue to monitor HR/BP Renal: F/U I&O, keep IV fluid Infectious Disease: check cultures Gastrointestinal: hold feedings Endocrine: monitor blood sugar Hematologic: monitor H/H, transfuse if hgb<8.5 Neurologic: PRN Ativan, PRN Morphine, keep patient comfortable Disposition: keep in ICU Time Spent (Minutes): 40 Notes Reviewed: renal, other Critical Care - Objective Last 24 Hour Vital Signs Date Time Temp Pulse Resp B/P (MAP) Pulse Ox O2 Delivery O2 Flow Rate FiO2 07/16/19 13:29 116 14 50 07/16/19 13:00 110 14 150/92 (111) 100 07/16/19 12:40 50 07/16/19 12:20 50 07/16/19 12:20 98.1 106 14 108/45 (66) 100 07/16/19 12:11 96 12 112/52 100 Endotracheal Tube 100 07/16/19 12:01 97.2 95 12 113/54 100 Endotracheal Tube 100 07/16/19 11:50 95 12 108/52 100 Endotracheal Tube 100 07/16/19 11:40 93 15 100/41 100 Endotracheal Tube 100 07/16/19 11:39 91 12 100 Mechanical Ventilator 45.0 100 07/16/19 11:32 91 12 100 07/16/19 11:25 91 12 88/45 100 Endotracheal Tube 100 07/16/19 11:10 91 15 95/43 100 Endotracheal Tube 100 07/16/19 11:05 89 16 79/56 100 Endotracheal Tube 100 07/16/19 10:56 92 15 86/64 100 Endotracheal Tube 100 07/16/19 10:52 94 12 100 07/16/19 10:51 93 15 89/72 100 Endotracheal Tube 100 07/16/19 10:46 97.4 101 14 96/72 100 Endotracheal Tube 100 07/16/19 10:46 100 07/16/19 08:23 Room Air 07/16/19 08:09 97.8 96 20 148/78 97 Status: sedated Condition: critical HEENT: atraumatic, normocephalic Neck: full ROM Lungs: rhonchi Heart: HR/BP unstable Abdomen: soft, active bowel sounds, feeding tube Extremities: no C/C/E Critical Care - Subjective ROS Limited/Unobtainable: Yes ICU Day: 1 Interval Events: 49 year old male with hx of DM, ESRF was undergoing an elective surgery when he sudheer down and arrested. He was revived, intubated and transferred to ICU. FI02: 50 Vent Support Breath Rate: 14 Vent Support Mode: AC Vent Tidal Volume: 600 Sputum Amount: Small PEEP: 5.0 PIP: 25 Fluids: Ns CXR: ET in good position ET-Tube: 8 ET Position: 24 Juan Carlos Soto MD Jul 16, 2019 14:01
--- NOTE | 2019-07-16 14:29 | Consultation ---
History of Present Illness General Date patient seen: Jul 16, 2019 Referring physician: ANT FERNANDEZ Reason for Consultation: ANEMIA Present Illness HPI 48 y/o M with hx of ESRD on HD via L arm AVF, Dm2, HTN, internal hemorrhoids who was admitted on 07/16 for ambulatory surgical excision of scrotal lesion. Patient has rectal pain and a non healing scrotal wound. During the surgery, patient became asystolic, CPR started and patient was intubated and transferred to ICU. Denied nausea, vomiting Allergies: Coded Allergies: LISINOPRIL (Verified Allergy, Severe, Shortness of Breath, 07/02/19) THROAT SWELLS UP PENICILLINS (Verified Allergy, Severe, throat swelling, 07/02/19) Uncoded Allergies: shellfish (Allergy, Severe, 02/06/19) shortness of breath, vomiting, throat swelling Medication History Scheduled Allopurinol* (Allopurinol*), 100 MG ORAL DAILY, (Reported) Amlodipine Besylate* (Amlodipine Besylate*), 30 MG ORAL DAILY, (Reported) Aspirin* (Aspir 81*), 81 MG ORAL DAILY, (Reported) Calcitriol (Calcitriol), 0.25 MCG PO THREE TIMES A WEEK, (Reported) Carvedilol* (Carvedilol*), 25 MG ORAL EVERY 12 HOURS, (Reported) Doxazosin Mesylate* (Doxazosin Mesylate*), 8 MG ORAL BID, (Reported) Sevelamer Carbonate* (Renvela*), 800 MG ORAL THREE TIMES A DAY, (Reported) Patient History Healthcare decision maker N Resuscitation status Advanced Directive on File Patient History Narrative Pmhx: as above Shx: reviewed Fhx: non contributory Physical Exam Physical Exam Narrative General Appearance: no apparent distress Head: normocephalic EENT: ETT in place Neck: supple Respiratory: normal breath sounds, no respiratory distress, other - intubated Cardiovascular: normal rate Gastrointestinal: normal inspection, non tender, soft, normal bowel sounds, non -distended Neurologic: oriented x3, normal inspection Skin: normal inspection, normal color, no rash, warm/dry, palpation normal, well hydrated scrotal wound packed Last 24 Hour Vital Signs Date Time Temp Pulse Resp B/P (MAP) Pulse Ox O2 Delivery O2 Flow Rate FiO2 07/16/19 13:29 116 14 50 07/16/19 13:00 110 14 150/92 (111) 100 07/16/19 12:40 50 07/16/19 12:20 50 07/16/19 12:20 98.1 106 14 108/45 (66) 100 07/16/19 12:11 96 12 112/52 100 Endotracheal Tube 100 07/16/19 12:01 97.2 95 12 113/54 100 Endotracheal Tube 100 07/16/19 11:50 95 12 108/52 100 Endotracheal Tube 100 07/16/19 11:40 93 15 100/41 100 Endotracheal Tube 100 07/16/19 11:39 91 12 100 Mechanical Ventilator 45.0 100 07/16/19 11:32 91 12 100 07/16/19 11:25 91 12 88/45 100 Endotracheal Tube 100 07/16/19 11:10 91 15 95/43 100 Endotracheal Tube 100 07/16/19 11:05 89 16 79/56 100 Endotracheal Tube 100 07/16/19 10:56 92 15 86/64 100 Endotracheal Tube 100 07/16/19 10:52 94 12 100 07/16/19 10:51 93 15 89/72 100 Endotracheal Tube 100 07/16/19 10:46 97.4 101 14 96/72 100 Endotracheal Tube 100 07/16/19 10:46 100 07/16/19 08:23 Room Air 07/16/19 08:09 97.8 96 20 148/78 97 Laboratory Tests Test 07/16/19 09:03 07/16/19 11:15 07/16/19 12:05 Potassium Level 3.2 MMOL/L (3.5-5.1) L 5.4 MMOL/L (3.5-5.1) #H Arterial Blood pH 7.273 (7.350-7.450) Arterial Blood Partial Pressure CO2 47.7 mmHg (35.0-45.0) H Arterial Blood Partial Pressure O2 409.6 mmHg (75.0-100.0) H Arterial Blood HCO3 21.6 mmol/L (22.0-26.0) L Arterial Blood Oxygen Saturation 99.4 % (95-100) Arterial Blood Base Excess -5.4 (-2-2) L Landon Test Positive White Blood Count 8.6 K/UL (4.8-10.8) Red Blood Count 3.87 M/UL (4.70-6.10) L Hemoglobin 12.7 G/DL (14.2-18.0) L Hematocrit 38.9 % (42.0-52.0) L Mean Corpuscular Volume 101 FL (80-99) H Mean Corpuscular Hemoglobin 32.7 PG (27.0-31.0) H Mean Corpuscular Hemoglobin Concent 32.5 G/DL (32.0-36.0) Red Cell Distribution Width 14.9 % (11.6-14.8) H Platelet Count 113 K/UL (150-450) L Mean Platelet Volume 10.3 FL (6.5-10.1) H Neutrophils (%) (Auto) 82.5 % (45.0-75.0) H Lymphocytes (%) (Auto) 9.7 % (20.0-45.0) L Monocytes (%) (Auto) 3.5 % (1.0-10.0) Eosinophils (%) (Auto) 3.9 % (0.0-3.0) H Basophils (%) (Auto) 0.4 % (0.0-2.0) Prothrombin Time 10.7 SEC (9.30-11.50) Prothromb Time International Ratio 1.0 (0.9-1.1) Activated Partial Thromboplast Time 25 SEC (23-33) Sodium Level 141 MMOL/L (136-145) Chloride Level 105 MMOL/L (98-107) Carbon Dioxide Level 26 MMOL/L (21-32) Anion Gap 10 mmol/L (5-15) Blood Urea Nitrogen 67 mg/dL (7-18) H Creatinine 11.5 MG/DL (0.55-1.30) H Estimat Glomerular Filtration Rate 5.7 mL/min (>60) Glucose Level 176 MG/DL (74-106) H Calcium Level 8.0 MG/DL (8.5-10.1) L Total Bilirubin 0.4 MG/DL (0.2-1.0) Aspartate Amino Transf (AST/SGOT) 44 U/L (15-37) H Alanine Aminotransferase (ALT/SGPT) 46 U/L (12-78) Alkaline Phosphatase 136 U/L (46-116) H Troponin I 0.072 ng/mL (0.000-0.056) Pro-B-Type Natriuretic Peptide 70567 pg/mL (0-125) H Total Protein 6.7 G/DL (6.4-8.2) Albumin 2.9 G/DL (3.4-5.0) L Globulin 3.8 g/dL Albumin/Globulin Ratio 0.8 (1.0-2.7) L Height (Feet): 5 Height (Inches): 5.50 Weight (Pounds): 163 Medications Current Medications Medications (Trade) Dose Ordered Sig/David Route PRN Reason Start Time Stop Time Status Last Admin Dose Admin Acetaminophen (Tylenol) 650 mg Q4H PRN ORAL Fever 07/16/19 14:00 08/15/19 13:59 Acetaminophen (Tylenol) 650 mg Q4H PRN RECTAL FEVER 07/16/19 13:45 08/15/19 13:44 Albuterol/ Ipratropium (Albuterol/ Ipratropium) 3 ml Q4H PRN HHN Shortness of Breath 07/16/19 14:00 07/21/19 13:59 Carvedilol (Coreg) 25 mg EVERY 12 HOURS ORAL 07/16/19 21:00 08/15/19 20:59 Cefazolin Sodium 2 gm/Dextrose 110 ml @ 220 mls/hr ONCE ONCE IVPB 07/16/19 15:00 07/16/19 15:29 Dextrose (Dextrose 50%) 25 ml Q30M PRN IV Hypoglycemia 07/16/19 14:00 08/15/19 13:59 Dextrose (Dextrose 50%) 50 ml Q30M PRN IV Hypoglycemia 07/16/19 14:00 08/15/19 13:59 Heparin Sodium (Porcine) (Heparin 5000 units/ml) 5,000 units EVERY 8 HOURS SUBQ 07/16/19 14:00 08/15/19 13:59 Hydralazine HCl (Apresoline) 10 mg Q4H PRN IV bp over 160 syst 07/16/19 14:00 08/15/19 13:59 Lorazepam (Ativan 2mg/ml 1ml) 2 mg Q2H PRN IV agitation 07/16/19 14:00 07/23/19 13:59 Metoclopramide HCl (Reglan) 10 mg Q6H PRN IVP Nausea & Vomiting 07/16/19 13:45 08/15/19 13:44 Morphine Sulfate (Morphine Sulfate) 4 mg Q4H PRN IVP Severe Pain (Pain Scale 7-10) 07/16/19 14:00 07/23/19 13:59 Pantoprazole (Protonix) 40 mg EVERY 12 HOURS IVP 07/16/19 21:00 08/15/19 20:59 Sennosides (Senokot) 8.6 mg BIDPRN PRN ORAL Constipation 07/16/19 13:45 08/15/19 13:44 Sevelamer Carbonate (Renvela) 800 mg THREE TIMES A DAY ORAL 07/16/19 18:00 08/15/19 12:59 Sodium Chloride 1,000 ml @ 50 mls/hr Q20H IVLG 07/16/19 13:15 08/15/19 08:59 Assessment/Plan Assessment/Plan: Abx: Ancef x1 07/16 Assessment: cardiac arrest asystole during surgical procedure -07/16 CXR: pulmonary edema Non healing scrotal wound -07/16 sp attempted excision but procedure aborted due to cardiac arrest Afebrile No leukocytosis ESRD on HD via L arm AVF Dm2 HTN internal hemorrhoids Plan: -Periop Ancef -f/u cx -Monitor CBC/CMP, temperatures -ETT/ICU care -aspiration precautions -wound care per surgical team -Sx, Neprho, pulm f/u Thank you for this consultation. Will continue to follow along with you. Discussed with Lee Ann Arango M.D. Jul 16, 2019 14:29
--- NOTE | 2019-07-16 14:48 | NUR ---
NURSE NOTES: Spoke with [facility] dialysis nurse. Received consent for HD from , [facility].
--- NOTE | 2019-07-16 14:58 | Diagnostic Imaging Report ---
Indication: Abdominal pain Comparison: None Single view of the abdomen obtained Findings: Bowel gas pattern is nonspecific. NG tube is in good position within the stomach. Vascular calcifications are noted in the splenic artery. No mass, ectopic calcifications, or abnormal gas collections are identified. The bones are unremarkable. Impression: No acute findings
[2019-07-16] MEDS ORDERED: ceFAZolin sod 2 GM in D5W 110 ML IVPB ONE ×2 (15:00→20:30)
[2019-07-16] MEDS: Heparin 5000 units/ml inj SUBQ SCH ×2 (15:46→21:42)
--- NOTE | 2019-07-16 16:00 | NUR ---
NURSE NOTES: Moderate amount of active bleeding and blood clots from the scrotal excision site. Removed old dressing and put a surgicel and pressure dressing. Notified Dr Galloway. Dr Galloway came assessed the patient. Bleeding stopped. Order received, noted, and carried out. Addendum: 07/16/19 at 1623 by TIFFANIE SALAS RN RN NURSE NOTES: Moderate amount of active bleeding and blood clots from the scrotal excision site. Removed old dressing and put a surgicel and pressure dressing. Notified Dr Galloway. Dr Galloway came assessed the patient. Bleeding stopped. Order received, noted, and carried out. Heparin subq held because of bleeding.
--- NOTE | 2019-07-16 16:00 | NUR ---
NURSE NOTES: Spoke with pharmacist regarding Ancef. It will be given after HD.
--- NOTE | 2019-07-16 16:13 | NUR ---
NURSE NOTES: Notified Dr Soto regarding ABG result. Awaiting call back for new orders.
--- NOTE | 2019-07-16 17:24 | NUR ---
NURSE NOTES: Hemodialysis is being done at bedside.
[2019-07-16] MEDS ORDERED: ceFAZolin sod 2 GM in D5W 110 ML IV SCH (18:00)
[2019-07-16] MEDS ORDERED: Docusate 100mg cap ORAL SCH (18:00)
--- NOTE | 2019-07-16 18:15 | Operative Note - Dictated ---
DATE OF OPERATION: 07/16/2019 PREOPERATIVE DIAGNOSES: 1. Rectal pain. 2. Nonhealing chronic scrotal wound with drainage. POSTOPERATIVE DIAGNOSES: 1. Rectal pain. 2. Nonhealing chronic scrotal wound with drainage. OPERATION PERFORMED: Excision of scrotal lesion aborted secondary to asystole and cardiovascular event. ATTENDING SURGEON: Zenon Galloway M.D. HYDRAMATIC SPECIALIST: None. ANESTHESIOLOGIST: Devendra Burnette M.D. ANESTHESIA: Local plus MAC. ESTIMATED BLOOD LOSS: Minimal. IV FLUIDS: Please see anesthesia records. COMPLICATIONS: Asystole with cardiovascular arrest. COUNTS: Sponge and needle count correct x2. WOUND CLASSIFICATION: Class 3. ANTIBIOTICS: The patient given Cipro IV one hour prior to cut time. INDICATIONS FOR PROCEDURE: This is a 48-year-old male who was referred to me by his primary care physician for evaluation of a chronically draining scrotal wound as well as rectal pain and drainage. 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 The patient states that prior had local wound care and was initially improving, but then opened up again and this has then causing discomfort, erythema, occasional inflammation, infection and chronic draining wound, as well as complaining of perianal pain and discomfort with some drainage noted, unable to appreciate a full examination in the office due to discomfort. Given these findings, surgery was indicated and recommended, planned for excision of scrotal lesion as well as examination under anesthesia with possible fistulectomy, fistulotomy, or fissure repair if necessary as well as hemorrhoidectomy if needed. Risks, benefits, and alternatives discussed patient in detail who expressed understanding. Also discussed with the patient's as well. The patient had preoperative clearance done by his primary care physician Dr. Singleton and medically cleared for the above surgery. Given the timing and care plan, initial surgery day was canceled, so the patient can have his ophthalmology surgery first, which was performed 2 weeks ago, which patient tolerated well without complication. The patient was rescheduled for today 07/16/2019. OPERATIVE NOTE: The patient was taken to the operating room and placed on the operating table in lithotomy position with all bony prominences were well padded. SCDs were placed. Preoperative time-out taken identifying the patient, procedure, operative and surgical staff. Cipro was given IV hour prior to cut time. MAC anesthesia sedation was performed by the anesthesiologist under with close monitoring. The scrotal and perirectal area were prepped and draped in standard surgical fashion. The plan was before contaminate any instruments and evaluated the rectal region to excise the scrotal wound, followed by primary closure if possible and dressings and then turned our attention to the examination under anesthesia for the rectal portion of the procedure. An elliptical skin incision was made after local anesthetic was infiltrated around the scrotal lesion encompassing the lesion in total. Skin incision was carried down through the dermis and the lesion was excised in whole through the skin to the superficial fascia. The superficial fascia and rectus muscle were not entered fortunately as this wound looked to be mainly at the skin and dermal level. Once the wound was excised, the wound bed was irrigated and planned for primary closure was considered, but at this time, I was notified by the anesthesiologist that the patient was becoming rapidly bradycardic and followed by asystole. Immediately, the procedure was aborted and ACLS protocol was initiated with CPR compressions, intubation by anesthesiologist and medications. The patient was resuscitated and arrhythmia noted and shocked into rhythm. At this time, the patient was in sinus tachycardia with palpable pulses and decision was made to abort the remainder of the procedure. Bacitracin placed on the wound followed by dressings. The patient was placed on the hospital bed and taken to the intensive care unit for workup, management and resuscitation. These findings were discussed with the patient's and primary care physician in detail. Zenon Galloway M.D. DR: Devante JOB#: [id number] CC:
[2019-07-16] MEDS: Renvela 800mg Pkt ORAL SCH (18:33)
--- NOTE | 2019-07-16 19:35 | NUR ---
HAND-OFF: Report given to Ml Das RN.
--- NOTE | 2019-07-16 19:36 | NUR ---
NURSE NOTES: Received report and pt from JOCE Yang. S/P CODE BLUE in OR. Pt is in bed, noted slightly eye movements with noise, no eye opening wide, R pupil dilated 3mm, L pupil 2mm. Non-verbal. Sinus tachy on traffic monitor specialist. 100-110's. Orally intubated ETT 8.0 at 24cm right lip line. AC 14, TV 600, FiO2 50%, P 5. O2 sat 100%, RR 14. Afebrile. HD nurse at the bed side, just finished,stated took out 1L. VS stable. Noted OGT clamped. Noted emesis with chunks of food x 2. Maintaining NPO. Noted dressing on R scrotal dry and intact, no active bleeding at this time. Left UA AV shunt for HD noted, intact. Peripheral IV to right hand G20 patent and asymptomatic, running NS at 50ml/hr. SCD is on for BLE from OR. Bed in lowest position. Side rails up x3. Will resume plan of care.
--- NOTE | 2019-07-16 19:51 | NUR ---
NURSE NOTES: Spoke with pharmacist. Ancef 2 gram was reordered since the previous order fell off.
[2019-07-16] MEDS: Pantoprazole Inj IVP SCH (20:45)
[2019-07-16] MEDS: Metoclopramide 10mg/2ml Inj IVP PRN (20:45)
[2019-07-16] MEDS: Carvedilol 25mg Tab ORAL SCH (20:45)
[2019-07-16] MEDS ORDERED: Heparin 5000 units/ml inj SUBQ SCH (21:00)
[2019-07-16] MEDS ORDERED: Carvedilol 25mg Tab ORAL SCH ×2 (21:00)
--- NOTE | 2019-07-16 21:00 | NUR ---
NURSE NOTES: Dr Cortés was at the bed side with the pt. EKG, Troponin, 2D Echo 20-25% reviewed by Dr Cortés. Orders noted and carried out. Pt's in with ST, still non-responsive at this time, intubated. No acute distress noted at this time. Will continue to monitor.
--- NOTE | 2019-07-16 21:03 | Cardiology Progress Note ---
Assessment/Plan Assessment/Plan pt with intraoperative cardiac arrest post cpr echo showed poor lv function has of dcm but in 10/2018 echo showed normal systolic function ef then waqs 60 % but previously 38% hs of htn difficult controlled has his on noncompliance with meds and dialysis at least on one occasion per [facility] record will need cardiac enzyem, ekg , bp control with Norvasc and Coreg and dialysis sinus tachy 120's with t inversion the lateral leads not chagne since preop ekg Objective Last 24 Hour Vital Signs Date Time Temp Pulse Resp B/P (MAP) Pulse Ox O2 Delivery O2 Flow Rate FiO2 07/16/19 20:45 129 195/107 07/16/19 19:00 122 16 138/77 (97) 100 07/16/19 18:00 118 14 143/76 (98) 100 07/16/19 17:25 111 14 50 07/16/19 17:00 98.8 115 16 144/82 (102) 100 07/16/19 16:00 115 17 147/85 (105) 100 07/16/19 16:00 Mechanical Ventilator 07/16/19 16:00 50 07/16/19 15:55 111 07/16/19 15:06 111 14 50 07/16/19 15:00 119 17 169/99 (122) 100 07/16/19 14:00 115 15 140/100 (113) 100 07/16/19 13:29 116 14 50 07/16/19 13:00 110 14 150/92 (111) 100 07/16/19 12:42 Mechanical Ventilator 07/16/19 12:40 50 07/16/19 12:35 105 07/16/19 12:20 50 07/16/19 12:20 98.1 106 14 108/45 (66) 100 07/16/19 12:11 96 12 112/52 100 Endotracheal Tube 100 07/16/19 12:01 97.2 95 12 113/54 100 Endotracheal Tube 100 07/16/19 11:50 95 12 108/52 100 Endotracheal Tube 100 07/16/19 11:40 93 15 100/41 100 Endotracheal Tube 100 07/16/19 11:39 91 12 100 Mechanical Ventilator 45.0 100 07/16/19 11:32 91 12 100 07/16/19 11:25 91 12 88/45 100 Endotracheal Tube 100 07/16/19 11:10 91 15 95/43 100 Endotracheal Tube 100 07/16/19 11:05 89 16 79/56 100 Endotracheal Tube 100 07/16/19 10:56 92 15 86/64 100 Endotracheal Tube 100 07/16/19 10:52 94 12 100 07/16/19 10:51 93 15 89/72 100 Endotracheal Tube 100 07/16/19 10:46 97.4 101 14 96/72 100 Endotracheal Tube 100 07/16/19 10:46 100 07/16/19 08:23 Room Air 07/16/19 08:09 97.8 96 20 148/78 97 Laboratory Tests Test 07/16/19 09:03 07/16/19 11:15 07/16/19 12:05 07/16/19 15:50 Potassium Level 3.2 MMOL/L (3.5-5.1) L 5.4 MMOL/L (3.5-5.1) #H Arterial Blood pH 7.273 (7.350-7.450) 7.388 (7.350-7.450) Arterial Blood Partial Pressure CO2 47.7 mmHg (35.0-45.0) H 39.3 mmHg (35.0-45.0) Arterial Blood Partial Pressure O2 409.6 mmHg (75.0-100.0) H 152.6 mmHg (75.0-100.0) H Arterial Blood HCO3 21.6 mmol/L (22.0-26.0) L 23.1 mmol/L (22.0-26.0) Arterial Blood Oxygen Saturation 99.4 % (95-100) 98.6 % (95-100) Arterial Blood Base Excess -5.4 (-2-2) L -1.6 (-2-2) Landon Test Positive Positive White Blood Count 8.6 K/UL (4.8-10.8) Red Blood Count 3.87 M/UL (4.70-6.10) L Hemoglobin 12.7 G/DL (14.2-18.0) L Hematocrit 38.9 % (42.0-52.0) L Mean Corpuscular Volume 101 FL (80-99) H Mean Corpuscular Hemoglobin 32.7 PG (27.0-31.0) H Mean Corpuscular Hemoglobin Concent 32.5 G/DL (32.0-36.0) Red Cell Distribution Width 14.9 % (11.6-14.8) H Platelet Count 113 K/UL (150-450) L Mean Platelet Volume 10.3 FL (6.5-10.1) H Neutrophils (%) (Auto) 82.5 % (45.0-75.0) H Lymphocytes (%) (Auto) 9.7 % (20.0-45.0) L Monocytes (%) (Auto) 3.5 % (1.0-10.0) Eosinophils (%) (Auto) 3.9 % (0.0-3.0) H Basophils (%) (Auto) 0.4 % (0.0-2.0) Prothrombin Time 10.7 SEC (9.30-11.50) Prothromb Time International Ratio 1.0 (0.9-1.1) Activated Partial Thromboplast Time 25 SEC (23-33) Sodium Level 141 MMOL/L (136-145) Chloride Level 105 MMOL/L (98-107) Carbon Dioxide Level 26 MMOL/L (21-32) Anion Gap 10 mmol/L (5-15) Blood Urea Nitrogen 67 mg/dL (7-18) H Creatinine 11.5 MG/DL (0.55-1.30) H Estimat Glomerular Filtration Rate 5.7 mL/min (>60) Glucose Level 176 MG/DL (74-106) H Calcium Level 8.0 MG/DL (8.5-10.1) L Total Bilirubin 0.4 MG/DL (0.2-1.0) Aspartate Amino Transf (AST/SGOT) 44 U/L (15-37) H Alanine Aminotransferase (ALT/SGPT) 46 U/L (12-78) Alkaline Phosphatase 136 U/L (46-116) H Troponin I 0.072 ng/mL (0.000-0.056) Pro-B-Type Natriuretic Peptide 53051 pg/mL (0-125) H Total Protein 6.7 G/DL (6.4-8.2) Albumin 2.9 G/DL (3.4-5.0) L Globulin 3.8 g/dL Albumin/Globulin Ratio 0.8 (1.0-2.7) L Hepatitis B Surface Antigen Pending Emmanuel Cortés MD Jul 16, 2019 21:03
[2019-07-17] VITALS (26 sets, daily range): BP systolic 84–186; BP diastolic 56–111
--- NOTE | 2019-07-17 | NUR ---
HAND-OFF: Report given to JOCE Colon.
--- NOTE | 2019-07-17 | NUR ---
NURSE NOTES: Received patient from JOCE Das. Patient orally intubated ET 8 @24cm lipline to vent settings of AC:14, TV:600, FiO2:50%, PEEP:5, O2:100%. Patient is awake and opened eyes but does not make eye contact. Currently NPO but with OGT inserted. Dressing noted on surgical site- scrotum; no active bleeding at the moment. Suctioning provided. Right hand IV 20g running NS @ 50ml/hr. Will continue plan of care.
--- NOTE | 2019-07-17 02:00 | NUR ---
NURSE NOTES: Frequent suctioning provided. Patient is spitting up large amounts of orange fluid/gastric content. Surgical site shows no active bleeding. Turned and repositioned. Safety measures in place. Will continue to monitor.
--- NOTE | 2019-07-17 02:00 | Consultation ---
DATE OF CONSULTATION: 07/16/2019 CARDIOLOGY CONSULTATION CONSULTING PHYSICIAN: Emmanuel Cortés M.D. REFERRING PHYSICIAN: Juan Carlos Lepe M.D. REASON FOR REFERRAL: Cardiac arrest. HISTORY OF PRESENT ILLNESS: This is a very unfortunate gentleman who is not capable of providing any meaningful history whatsoever. Information is obtained from the review of the patient's chart and review of [facility] medical records on him. The patient reportedly had history of dilated cardiomyopathy previously, but has had improvement in his LV function at some point and has had a scrotal lesion that underwent surgical excision in the operating room. During the surgery, the patient became asystolic and underwent advanced cardiac life support with administration of epinephrine. Eventually, the patient's heart rate returned back to normal. Unfortunately, on review of the chart, it appears that the patient was noted to have asystole followed by ventricular fibrillation, ventricular tachycardia, and eventually sinus tachycardia. The duration of his cardiac life support as written in the sheet is apparently 14 minutes and initial cardiac rhythm reportedly as asystole. He received atropine and 1 shock at 30 joules according to the records prior to developing sinus rhythm. At the present time, he is on ventilator. He is not communicating or responsive at this time. 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 His last echocardiogram at [facility] had shown normal left ventricular systolic function, ejection fraction of 60%, but in August had shown ejection fraction previously of 38%. It was felt to be secondary to hypertensive cardiomyopathy and was treated with a dose of Coreg, losartan, and spironolactone and is apparently improved. ALLERGIES: To lisinopril, shellfish, and penicillin, the details of which again is unknown. SOCIAL HISTORY: He is and never smoked. According to the chart, the patient with no alcohol and no drug use. FAMILY HISTORY: Colon cancer in mother, heart disease in mother, diabetes in sister, and stroke in father. REVIEW OF SYSTEMS: Unable to obtain. PHYSICAL EXAMINATION: GENERAL: Shows to be a middle-aged gentleman, on a mechanical ventilator, not communicative, and not responsive. NECK: Supple. LUNGS: Anteriorly appeared to be clear to auscultation. CARDIAC: Regular rhythm. No heaves or thrills noted. Tachycardic mildly. ABDOMEN: Soft, nontender. Positive bowel sounds. EXTREMITIES: There is no edema. NEUROLOGIC: Not communicative and not responsive. LABORATORY VALUES: White count of 8.6, hemoglobin 12.7, and platelet count of 113,000. Blood gases, original pH of 7.27, pCO2 of 48, pO2 of 409, and bicarbonate of 21. Subsequently at 3:50, the pH was 7.38, pCO2 of 39, and pO2 of 152. His coags, INR 1.0 and PTT of 20. Imaging, a chest x-ray performed around noontime that showed pulmonary edema, and abdominal x-rays showed no acute findings. The patient's preop H and P is unable to find. There were some laboratories that were done back on June 26. Available EKG showed T-wave inversions in I, II, aVL, V5, and V6. I am unable to find another EKG since then. Telemetry data reviewed. Ventricular fibrillation, ventricular tachycardia, and subsequently sinus tachycardia; however, at the present time, the patient is in sinus. His echocardiogram that was performed has not been fully evaluated. I did look at the echocardiogram myself. Ejection fraction is quite poor, but left ventricular hypertrophy is noted. The LV does not appear to be significantly dilated. ASSESSMENT AND PLAN: 1. Status cardiac arrest, asystolic in origin. 2. Reported history of dilated cardiomyopathy that had improved in October 2018. 3. Hypertension, poorly controlled. 4. Hyperlipidemia. 5. End-stage renal disease, on hemodialysis. 6. History of diastolic heart failure previously. 7. Lisinopril and penicillin allergy. 8. Diabetes mellitus. 9. Secondary hyperparathyroidism. 10. History of asthma. 11. Anemia, secondary to end-stage renal disease. Dr. Soto, this patient was seen in cardiac consultation. The patient should have dialysis. A set of cardiac enzymes should be performed. Of note, his first set was at 0.072. His proBNP is currently nondiagnostic in the setting of end-stage renal disease, but with a proBNP of 2600. EKG has just been ordered. The patient requires treatment for his heart failure maybe with the use of intravenous medications for blood pressure and should be back eventually on his usual doses of antihypertensive medications, which previously have included Coreg and Cardura as well as amlodipine, through the NG tube for control of his blood pressure. If needed, IV medication will be subsequently administered although with allergies to YELENA inhibitors and penicillin and having renal failure, it would limit the amount of intravenous medication that will be available for administration. Certainly, Nitropaste, Coreg, and Norvasc to be continued and may require addition of other cardiac medications for LV support; however, with blood pressure control that may be less of an issue at least short-term and we will follow the patient along for this cardiac arrest condition. Total duration of this critical care cardiac evaluation of at least long-term. The patient will be followed in the intensive care unit. He is certainly at the risk of having further cardiac issues or arrests and if remains this way, his prognosis may become poor. He has been seen by Electrophysiology back in October when his LV function was normal at that time. Of note, EKG just performed shows sinus tachycardia in the 120s with T-inversion in the lateral leads present. Emmanuel Cortés M.D. DR: SHE JOB#: [id number] CC:
--- NOTE | 2019-07-17 04:00 | NUR ---
NURSE NOTES: Suctioning provided. Patient still vomiting gastric content. Head of bed up to prevent aspiration. Will continue to monitor.
[2019-07-17 05:55] LABS: BASOPHILS % (AUTO) 0.3 % (0.0-2.0); EOSINOPHILS % (AUTO) 0.1 % (0.0-3.0); HEMATOCRIT 37.2 % (42.0-52.0); HEMOGLOBIN 12.4 G/DL (14.2-18.0); LYMPHOCYTES % (AUTO) 9.3 % (20.0-45.0); MEAN CORPUSCULAR VOLUME 100 FL (80-99); MONOCYTES % (AUTO) 6.4 % (1.0-10.0); NEUTROPHILS % (AUTO) 83.8 % (45.0-75.0); PLATELET COUNT 108 K/UL (150-450); RED BLOOD COUNT 3.71 M/UL (4.70-6.10); RED CELL DISTRIBUTION WIDTH 14.9 % (11.6-14.8); WHITE BLOOD COUNT 11.1 K/UL (4.8-10.8)
[2019-07-17] MEDS: Heparin 5000 units/ml inj SUBQ SCH ×3 (06:00→22:00)
--- NOTE | 2019-07-17 06:00 | NUR ---
NURSE NOTES: Bed bath, linen change, frequent suctioning and dressing change provided. Patient is still vomiting gastric content. Turned and repositioned. Patient is more awake and alert; opens eyes widely and making contact when called by name. Will continue to monitor.
[2019-07-17 06:28] LABS: AMYLASE 86 U/L (25-115); CHOLESTEROL 91 MG/DL (< 200); HDL CHOLESTEROL 32 MG/DL (40-60); TRIGLYCERIDES 178 MG/DL (30-150)
[2019-07-17 06:30] LABS: ALANINE AMINOTRANSFERASE 30 U/L (12-78); ALBUMIN 3.1 G/DL (3.4-5.0); ALKALINE PHOSPHATASE 124 U/L (46-116); ASPARTATE AMINO TRANSFERASE 32 U/L (15-37); BILIRUBIN,DIRECT 0.1 MG/DL (0.0-0.3); BILIRUBIN,TOTAL 0.6 MG/DL (0.2-1.0)
[2019-07-17 06:31] LABS: ALANINE AMINOTRANSFERASE 27 U/L (12-78); ALBUMIN 2.8 G/DL (3.4-5.0); ALBUMIN/GLOBULIN RATIO 0.7 (1.0-2.7); ALKALINE PHOSPHATASE 113 U/L (46-116); ANION GAP 14 mmol/L (5-15); ASPARTATE AMINO TRANSFERASE 21 U/L (15-37); BILIRUBIN,TOTAL 0.5 MG/DL (0.2-1.0); BLOOD UREA NITROGEN 55 mg/dL (7-18); CALCIUM 7.8 MG/DL (8.5-10.1); CARBON DIOXIDE 25 MMOL/L (21-32); CHLORIDE 108 MMOL/L (98-107); CREATININE 9.1 MG/DL (0.55-1.30); FERRITIN 1719 NG/ML (8-388); PHOSPHORUS 3.3 MG/DL (2.5-4.9); POTASSIUM 3.9 MMOL/L (3.5-5.1); SODIUM 147 MMOL/L (136-145)
[2019-07-17 06:35] LABS: CREATINE KINASE 46 U/L (26-308); GAMMA GLUTAMYL TRANSPEPTIDASE 27 U/L (5-85)
[2019-07-17] MEDS: Metoclopramide 10mg/2ml Inj IVP PRN ×2 (07:07→12:42)
[2019-07-17 07:09] LABS: % IRON SATURATION 15 % (15-50); IRON 24 ug/dL (50-175); TOTAL IRON BINDING CAPACITY 159 ug/dL (250-450)
--- NOTE | 2019-07-17 07:20 | NUR ---
HAND-OFF: Report given to JOCE Strauss.
--- NOTE | 2019-07-17 08:00 | NUR ---
NURSE NOTES: Received end of shift report from Darlene HOBSON. Pt is orally intubated. Does not open eyes, withdraws to pain. ETT 26cm at left lipline, vent settings AC14, VT600, Peep 5.0, FIO2 40% at 100% O2Sat with bilateral diminished lung sounds. ST on quality assurance monitor final, HR 100-110. Temp 98.8F axillary. OG tube in place and clamped. Left UA shunt for HD. Right hand #20G peripheral IV infusing NS at 50ml/hour. Scrotal incisional wound with wet-to-dry dressing, covered with gauze, ABD pad. Per night filler RN, pt was administered Reglan and Ativan at 0707 for vomiting and agitation. HOB at 30degrees, bed locked, three side rails up. Will continue to monitor pt and follow plan of care.
[2019-07-17] MEDS: Carvedilol 25mg Tab ORAL SCH (09:00)
[2019-07-17] MEDS ORDERED: Allopurinol 100mg Tab ORAL SCH ×2 (09:00)
--- NOTE | 2019-07-17 09:38 | Diagnostic Imaging Report ---
Indication: Shortness of breath Technique: One view of the chest Comparison: 07/16/2019 Findings: Interim placement of nasogastric tube, tip of which projects beyond the edge of the image, presumably well within the stomach. Stable satisfactory position of endotracheal tube. Bilateral pleural effusion and mild interstitial congestion and hazy parenchymal opacity present. Impression: Satisfactory nasogastric intubation Otherwise unchanged over one day, findings as noted
[2019-07-17] MEDS: Pantoprazole Inj IVP SCH ×2 (09:43→21:31)
[2019-07-17] MEDS: Renvela 800mg Pkt ORAL SCH (09:43)
--- NOTE | 2019-07-17 09:58 | Diagnostic Imaging Report ---
Indication: Altered level of consciousness, dizziness Technique: Grayscale and duplex images of the bilateral extracranial carotid and vertebral arteries Comparison: none Findings: Bilaterally, grayscale and duplex images demonstrate atherosclerotic plaquing resulting in less than 50% diameter narrowing. Normal Doppler flow velocities and waveforms. Patent bilateral vertebral arteries, antegrade flow Impression: Less than 50% diameter stenosis bilaterally All stenosis was measured based on the NASCET criteria. Velocity criteria are extrapolated from diameter data as defined by the Society of radiologists in ultrasound consensus conference. Radiology 2003:229; 340-346
--- NOTE | 2019-07-17 10:00 | NUR ---
NURSE NOTES: AM meds were administered. Surgical dressing on scrotum was changed. Pt was cleaned and repositioned. Pt was seen by GI, OGT is now connected to low intermittent suction per order, with output of dark green liquid. ST on dosier operator.
--- NOTE | 2019-07-17 10:05 | NUR ---
RADIOLOGY DEPT., CHEST X-RAY DONE.-P.DYE
--- NOTE | 2019-07-17 10:46 | Pulmonolgy Critical Care Note ---
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, 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, 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 Critical Care - Objective Last 24 Hour Vital Signs Date Time Temp Pulse Resp B/P (MAP) Pulse Ox O2 Delivery O2 Flow Rate FiO2 07/17/19 09:30 107 14 90/61 (71) 100 07/17/19 09:00 110 18 104/70 (81) 100 07/17/19 09:00 109 90/61 07/17/19 08:30 111 14 94/56 (69) 98 07/17/19 08:00 98.9 110 5 132/73 (92) 100 07/17/19 07:15 111 14 40 07/17/19 07:00 111 14 152/85 (107) 100 07/17/19 06:30 108 25 07/17/19 06:00 116 15 174/86 (115) 100 07/17/19 05:29 117 14 50 07/17/19 05:00 114 18 161/88 (112) 100 07/17/19 04:00 50 07/17/19 04:00 Mechanical Ventilator 07/17/19 04:00 99.2 116 15 177/89 (118) 100 07/17/19 03:41 115 07/17/19 03:00 114 18 166/85 (112) 100 07/17/19 02:52 112 14 50 07/17/19 02:00 110 14 153/85 (107) 100 07/17/19 01:19 110 15 50 07/17/19 01:00 106 20 186/103 (130) 100 07/17/19 00:00 Mechanical Ventilator 07/17/19 00:00 110 07/17/19 00:00 50 07/17/19 00:00 99.8 110 0 138/82 (100) 100 07/16/19 23:45 110 20 157/97 (117) 100 07/16/19 23:30 121 14 153/88 (109) 100 07/16/19 23:15 110 14 113/78 (90) 100 07/16/19 23:13 111 14 50 07/16/19 23:00 113 14 156/79 (104) 100 07/16/19 22:30 105 14 136/76 (96) 100 07/16/19 22:00 109 13 154/81 (105) 100 07/16/19 21:30 110 14 146/74 (98) 100 07/16/19 21:19 113 17 50 07/16/19 21:00 128 0 154/83 (106) 100 07/16/19 20:45 129 195/107 07/16/19 20:30 129 15 148/77 (100) 100 07/16/19 20:00 128 07/16/19 20:00 98.9 126 14 141/91 (108) 100 07/16/19 20:00 50 07/16/19 19:10 115 17 50 07/16/19 19:00 122 16 138/77 (97) 100 07/16/19 18:00 118 14 143/76 (98) 100 07/16/19 17:25 111 14 50 07/16/19 17:00 98.8 115 16 144/82 (102) 100 07/16/19 16:00 115 17 147/85 (105) 100 07/16/19 16:00 Mechanical Ventilator 07/16/19 16:00 50 07/16/19 15:55 111 07/16/19 15:06 111 14 50 07/16/19 15:00 119 17 169/99 (122) 100 07/16/19 14:00 115 15 140/100 (113) 100 07/16/19 13:29 116 14 50 07/16/19 13:00 110 14 150/92 (111) 100 07/16/19 12:42 Mechanical Ventilator 07/16/19 12:40 50 07/16/19 12:35 105 07/16/19 12:20 50 07/16/19 12:20 98.1 106 14 108/45 (66) 100 07/16/19 12:11 96 12 112/52 100 Endotracheal Tube 100 07/16/19 12:01 97.2 95 12 113/54 100 Endotracheal Tube 100 07/16/19 11:50 95 12 108/52 100 Endotracheal Tube 100 07/16/19 11:40 93 15 100/41 100 Endotracheal Tube 100 07/16/19 11:39 91 12 100 Mechanical Ventilator 45.0 100 07/16/19 11:32 91 12 100 07/16/19 11:25 91 12 88/45 100 Endotracheal Tube 100 07/16/19 11:10 91 15 95/43 100 Endotracheal Tube 100 07/16/19 11:05 89 16 79/56 100 Endotracheal Tube 100 07/16/19 10:56 92 15 86/64 100 Endotracheal Tube 100 07/16/19 10:52 94 12 100 07/16/19 10:51 93 15 89/72 100 Endotracheal Tube 100 07/16/19 10:46 97.4 101 14 96/72 100 Endotracheal Tube 100 07/16/19 10:46 100 Status: sedated Condition: critical, improving HEENT: atraumatic Neck: full ROM Lungs: rales Heart: HR/BP stable Abdomen: soft, active bowel sounds Extremities: no C/C/E, edema Critical Care - Subjective ROS Limited/Unobtainable: Yes ICU Day: 2 Interval Events: vomited large amount of food, he was suppose to be NPO for surgery. Condition: critical FI02: 40 Vent Support Breath Rate: 14 Vent Support Mode: AC Vent Tidal Volume: 600 Sputum Amount: Scant PEEP: 5.0 PIP: 26 I&O: Intake and Output 07/16/19 07/17/19 19:00 07:00 Intake Total 962.5 ml 1600 ml Output Total 5 ml 600 ml Balance 957.5 ml 1000 ml Intake IV Total 962.5 ml 600 ml Hemodialysis 1000 ml Output Urine Total 0 ml 0 ml Emesis 600 ml Estimated Blood Loss 5 ml ET-Tube: 8.0 ET Position: 24 Labs: Laboratory Tests Test 07/16/19 11:15 07/16/19 12:05 07/16/19 15:50 07/16/19 21:30 Arterial Blood pH 7.273 (7.350-7.450) 7.388 (7.350-7.450) Arterial Blood Partial Pressure CO2 47.7 mmHg (35.0-45.0) H 39.3 mmHg (35.0-45.0) Arterial Blood Partial Pressure O2 409.6 mmHg (75.0-100.0) H 152.6 mmHg (75.0-100.0) H Arterial Blood HCO3 21.6 mmol/L (22.0-26.0) L 23.1 mmol/L (22.0-26.0) Arterial Blood Oxygen Saturation 99.4 % (95-100) 98.6 % (95-100) Arterial Blood Base Excess -5.4 (-2-2) L -1.6 (-2-2) Landon Test Positive Positive White Blood Count 8.6 K/UL (4.8-10.8) Red Blood Count 3.87 M/UL (4.70-6.10) L Hemoglobin 12.7 G/DL (14.2-18.0) L Hematocrit 38.9 % (42.0-52.0) L Mean Corpuscular Volume 101 FL (80-99) H Mean Corpuscular Hemoglobin 32.7 PG (27.0-31.0) H Mean Corpuscular Hemoglobin Concent 32.5 G/DL (32.0-36.0) Red Cell Distribution Width 14.9 % (11.6-14.8) H Platelet Count 113 K/UL (150-450) L Mean Platelet Volume 10.3 FL (6.5-10.1) H Neutrophils (%) (Auto) 82.5 % (45.0-75.0) H Lymphocytes (%) (Auto) 9.7 % (20.0-45.0) L Monocytes (%) (Auto) 3.5 % (1.0-10.0) Eosinophils (%) (Auto) 3.9 % (0.0-3.0) H Basophils (%) (Auto) 0.4 % (0.0-2.0) Prothrombin Time 10.7 SEC (9.30-11.50) Prothromb Time International Ratio 1.0 (0.9-1.1) Activated Partial Thromboplast Time 25 SEC (23-33) Sodium Level 141 MMOL/L (136-145) Potassium Level 5.4 MMOL/L (3.5-5.1) #H Chloride Level 105 MMOL/L (98-107) Carbon Dioxide Level 26 MMOL/L (21-32) Anion Gap 10 mmol/L (5-15) Blood Urea Nitrogen 67 mg/dL (7-18) H Creatinine 11.5 MG/DL (0.55-1.30) H Estimat Glomerular Filtration Rate 5.7 mL/min (>60) Glucose Level 176 MG/DL (74-106) H Calcium Level 8.0 MG/DL (8.5-10.1) L Total Bilirubin 0.4 MG/DL (0.2-1.0) Aspartate Amino Transf (AST/SGOT) 44 U/L (15-37) H Alanine Aminotransferase (ALT/SGPT) 46 U/L (12-78) Alkaline Phosphatase 136 U/L (46-116) H Troponin I 0.072 ng/mL (0.000-0.056) 0.315 ng/mL (0.000-0.056) Pro-B-Type Natriuretic Peptide 27252 pg/mL (0-125) H Total Protein 6.7 G/DL (6.4-8.2) Albumin 2.9 G/DL (3.4-5.0) L Globulin 3.8 g/dL Albumin/Globulin Ratio 0.8 (1.0-2.7) L Hepatitis B Surface Antigen Negative (NEGATIVE) Test 07/17/19 03:40 White Blood Count 11.1 K/UL (4.8-10.8) H Red Blood Count 3.71 M/UL (4.70-6.10) L Hemoglobin 12.4 G/DL (14.2-18.0) L Hematocrit 37.2 % (42.0-52.0) L Mean Corpuscular Volume 100 FL (80-99) H Mean Corpuscular Hemoglobin 33.4 PG (27.0-31.0) H Mean Corpuscular Hemoglobin Concent 33.3 G/DL (32.0-36.0) Red Cell Distribution Width 14.9 % (11.6-14.8) H Platelet Count 108 K/UL (150-450) L Mean Platelet Volume 11.0 FL (6.5-10.1) H Neutrophils (%) (Auto) 83.8 % (45.0-75.0) H Lymphocytes (%) (Auto) 9.3 % (20.0-45.0) L Monocytes (%) (Auto) 6.4 % (1.0-10.0) Eosinophils (%) (Auto) 0.1 % (0.0-3.0) Basophils (%) (Auto) 0.3 % (0.0-2.0) Erythrocyte Sedimentation Rate 29 MM/HR (0-20) H Reticulocyte Count 1.8 % (0.5-2.0) Prothrombin Time 11.1 SEC (9.30-11.50) Prothromb Time International Ratio 1.0 (0.9-1.1) Activated Partial Thromboplast Time 25 SEC (23-33) Sodium Level 147 MMOL/L (136-145) H Potassium Level 3.9 MMOL/L (3.5-5.1) Chloride Level 108 MMOL/L (98-107) H Carbon Dioxide Level 25 MMOL/L (21-32) Anion Gap 14 mmol/L (5-15) Blood Urea Nitrogen 55 mg/dL (7-18) H Creatinine 9.1 MG/DL (0.55-1.30) H Estimat Glomerular Filtration Rate 7.5 mL/min (>60) Glucose Level 144 MG/DL (74-106) H Hemoglobin A1c 4.7 % (4.3-6.0) Lactic Acid Level 1.50 mmol/L (0.4-2.0) Uric Acid 5.5 MG/DL (2.6-7.2) Calcium Level 7.8 MG/DL (8.5-10.1) L Phosphorus Level 3.3 MG/DL (2.5-4.9) Magnesium Level 1.9 MG/DL (1.8-2.4) Iron Level 24 ug/dL (50-175) L Total Iron Binding Capacity 159 ug/dL (250-450) L Percent Iron Saturation 15 % (15-50) Unsaturated Iron Binding 135 ug/dL (112-346) Ferritin 1719 NG/ML (8-388) H Total Bilirubin 0.6 MG/DL (0.2-1.0) Direct Bilirubin 0.1 MG/DL (0.0-0.3) Gamma Glutamyl Transpeptidase 27 U/L (5-85) Aspartate Amino Transf (AST/SGOT) 32 U/L (15-37) Alanine Aminotransferase (ALT/SGPT) 30 U/L (12-78) Alkaline Phosphatase 124 U/L (46-116) H Total Creatine Kinase 46 U/L (26-308) Troponin I 0.279 ng/mL (0.000-0.056) C-Reactive Protein, Quantitative 1.7 mg/dL (0.00-0.90) H Pro-B-Type Natriuretic Peptide 25575 pg/mL (0-125) H Total Protein 7.6 G/DL (6.4-8.2) Albumin 3.1 G/DL (3.4-5.0) L Globulin 4.0 g/dL Albumin/Globulin Ratio 0.7 (1.0-2.7) L Triglycerides Level 178 MG/DL (30-150) H Cholesterol Level 91 MG/DL (< 200) LDL Cholesterol 36 mg/dL (<100) HDL Cholesterol 32 MG/DL (40-60) L Cholesterol/HDL Ratio 2.8 (3.3-4.4) L Amylase Level 86 U/L (25-115) Lipase 69 U/L (73-393) L Vitamin B12 Level 590 PG/ML (193-986) Folate 7.6 NG/ML (8.6-58.9) L Thyroid Stimulating Hormone (TSH) 3.258 uiU/mL (0.358-3.740) Free Thyroxine 0.89 NG/DL (0.76-1.46) Juan Carlos Soto MD Jul 17, 2019 10:46
--- NOTE | 2019-07-17 10:50 | Infectious Diseases Prog Note ---
Assessment/Plan Assessment/Plan Abx: Ancef x1 07/16 Assessment: Probable aspiration PNA -07/17 CXR: Bilateral pleural effusion and mild interstitial congestion and hazy parenchymal opacity present. cardiac arrest asystole during surgical procedure -07/16 CXR: pulmonary edema Non healing scrotal wound -07/16 sp attempted excision but procedure aborted due to cardiac arrest Afebrile No leukocytosis ESRD on HD via L arm AVF Dm2 HTN internal hemorrhoids Plan: -Start PO Levaquin to cover for probable aspiration PNA -07/16 SP Ancef x1 -f/u cx -Monitor CBC/CMP, temperatures -ETT/ICU care -aspiration precautions -wound care per surgical team -Sx, Neprho, pulm f/u Thank you for this consultation. Will continue to follow along with you. Discussed with RN Subjective Allergies: Coded Allergies: LISINOPRIL (Verified Allergy, Severe, Shortness of Breath, 07/02/19) THROAT SWELLS UP PENICILLINS (Verified Allergy, Severe, throat swelling, 07/02/19) Uncoded Allergies: shellfish (Allergy, Severe, 02/06/19) shortness of breath, vomiting, throat swelling Subjective afebrile mild leukocytosis remains intubated; fio2 40% Objective Vital Signs Last 24 Hour Vital Signs Date Time Temp Pulse Resp B/P (MAP) Pulse Ox O2 Delivery O2 Flow Rate FiO2 07/17/19 09:30 107 14 90/61 (71) 100 07/17/19 09:00 110 18 104/70 (81) 100 07/17/19 09:00 109 90/61 07/17/19 08:30 111 14 94/56 (69) 98 07/17/19 08:00 98.9 110 5 132/73 (92) 100 07/17/19 07:15 111 14 40 07/17/19 07:00 111 14 152/85 (107) 100 07/17/19 06:30 108 25 07/17/19 06:00 116 15 174/86 (115) 100 07/17/19 05:29 117 14 50 07/17/19 05:00 114 18 161/88 (112) 100 07/17/19 04:00 50 07/17/19 04:00 Mechanical Ventilator 07/17/19 04:00 99.2 116 15 177/89 (118) 100 07/17/19 03:41 115 07/17/19 03:00 114 18 166/85 (112) 100 07/17/19 02:52 112 14 50 07/17/19 02:00 110 14 153/85 (107) 100 07/17/19 01:19 110 15 50 07/17/19 01:00 106 20 186/103 (130) 100 07/17/19 00:00 Mechanical Ventilator 07/17/19 00:00 110 07/17/19 00:00 50 07/17/19 00:00 99.8 110 0 138/82 (100) 100 07/16/19 23:45 110 20 157/97 (117) 100 07/16/19 23:30 121 14 153/88 (109) 100 07/16/19 23:15 110 14 113/78 (90) 100 07/16/19 23:13 111 14 50 07/16/19 23:00 113 14 156/79 (104) 100 07/16/19 22:30 105 14 136/76 (96) 100 07/16/19 22:00 109 13 154/81 (105) 100 07/16/19 21:30 110 14 146/74 (98) 100 07/16/19 21:19 113 17 50 07/16/19 21:00 128 0 154/83 (106) 100 07/16/19 20:45 129 195/107 07/16/19 20:30 129 15 148/77 (100) 100 07/16/19 20:00 128 07/16/19 20:00 98.9 126 14 141/91 (108) 100 07/16/19 20:00 50 07/16/19 19:10 115 17 50 07/16/19 19:00 122 16 138/77 (97) 100 07/16/19 18:00 118 14 143/76 (98) 100 07/16/19 17:25 111 14 50 07/16/19 17:00 98.8 115 16 144/82 (102) 100 07/16/19 16:00 115 17 147/85 (105) 100 07/16/19 16:00 Mechanical Ventilator 07/16/19 16:00 50 07/16/19 15:55 111 07/16/19 15:06 111 14 50 07/16/19 15:00 119 17 169/99 (122) 100 07/16/19 14:00 115 15 140/100 (113) 100 07/16/19 13:29 116 14 50 07/16/19 13:00 110 14 150/92 (111) 100 07/16/19 12:42 Mechanical Ventilator 07/16/19 12:40 50 07/16/19 12:35 105 07/16/19 12:20 50 07/16/19 12:20 98.1 106 14 108/45 (66) 100 07/16/19 12:11 96 12 112/52 100 Endotracheal Tube 100 07/16/19 12:01 97.2 95 12 113/54 100 Endotracheal Tube 100 07/16/19 11:50 95 12 108/52 100 Endotracheal Tube 100 07/16/19 11:40 93 15 100/41 100 Endotracheal Tube 100 07/16/19 11:39 91 12 100 Mechanical Ventilator 45.0 100 07/16/19 11:32 91 12 100 07/16/19 11:25 91 12 88/45 100 Endotracheal Tube 100 07/16/19 11:10 91 15 95/43 100 Endotracheal Tube 100 07/16/19 11:05 89 16 79/56 100 Endotracheal Tube 100 07/16/19 10:56 92 15 86/64 100 Endotracheal Tube 100 07/16/19 10:52 94 12 100 07/16/19 10:51 93 15 89/72 100 Endotracheal Tube 100 07/16/19 10:46 97.4 101 14 96/72 100 Endotracheal Tube 100 07/16/19 10:46 100 Height (Feet): 5 Height (Inches): 5.50 Weight (Pounds): 168 Objective General Appearance: no apparent distress Head: normocephalic EENT: ETT in place Neck: supple Respiratory: normal breath sounds, no respiratory distress, other - intubated Cardiovascular: normal rate Gastrointestinal: normal inspection, non tender, soft, normal bowel sounds, non -distended Neurologic: oriented x3, normal inspection Skin: normal inspection, normal color, no rash, warm/dry, palpation normal, well hydrated scrotal wound packed Laboratory Tests Test 07/16/19 11:15 07/16/19 12:05 07/16/19 15:50 07/16/19 21:30 Arterial Blood pH 7.273 (7.350-7.450) 7.388 (7.350-7.450) Arterial Blood Partial Pressure CO2 47.7 mmHg (35.0-45.0) H 39.3 mmHg (35.0-45.0) Arterial Blood Partial Pressure O2 409.6 mmHg (75.0-100.0) H 152.6 mmHg (75.0-100.0) H Arterial Blood HCO3 21.6 mmol/L (22.0-26.0) L 23.1 mmol/L (22.0-26.0) Arterial Blood Oxygen Saturation 99.4 % (95-100) 98.6 % (95-100) Arterial Blood Base Excess -5.4 (-2-2) L -1.6 (-2-2) Landon Test Positive Positive White Blood Count 8.6 K/UL (4.8-10.8) Red Blood Count 3.87 M/UL (4.70-6.10) L Hemoglobin 12.7 G/DL (14.2-18.0) L Hematocrit 38.9 % (42.0-52.0) L Mean Corpuscular Volume 101 FL (80-99) H Mean Corpuscular Hemoglobin 32.7 PG (27.0-31.0) H Mean Corpuscular Hemoglobin Concent 32.5 G/DL (32.0-36.0) Red Cell Distribution Width 14.9 % (11.6-14.8) H Platelet Count 113 K/UL (150-450) L Mean Platelet Volume 10.3 FL (6.5-10.1) H Neutrophils (%) (Auto) 82.5 % (45.0-75.0) H Lymphocytes (%) (Auto) 9.7 % (20.0-45.0) L Monocytes (%) (Auto) 3.5 % (1.0-10.0) Eosinophils (%) (Auto) 3.9 % (0.0-3.0) H Basophils (%) (Auto) 0.4 % (0.0-2.0) Prothrombin Time 10.7 SEC (9.30-11.50) Prothromb Time International Ratio 1.0 (0.9-1.1) Activated Partial Thromboplast Time 25 SEC (23-33) Sodium Level 141 MMOL/L (136-145) Potassium Level 5.4 MMOL/L (3.5-5.1) #H Chloride Level 105 MMOL/L (98-107) Carbon Dioxide Level 26 MMOL/L (21-32) Anion Gap 10 mmol/L (5-15) Blood Urea Nitrogen 67 mg/dL (7-18) H Creatinine 11.5 MG/DL (0.55-1.30) H Estimat Glomerular Filtration Rate 5.7 mL/min (>60) Glucose Level 176 MG/DL (74-106) H Calcium Level 8.0 MG/DL (8.5-10.1) L Total Bilirubin 0.4 MG/DL (0.2-1.0) Aspartate Amino Transf (AST/SGOT) 44 U/L (15-37) H Alanine Aminotransferase (ALT/SGPT) 46 U/L (12-78) Alkaline Phosphatase 136 U/L (46-116) H Troponin I 0.072 ng/mL (0.000-0.056) 0.315 ng/mL (0.000-0.056) Pro-B-Type Natriuretic Peptide 85978 pg/mL (0-125) H Total Protein 6.7 G/DL (6.4-8.2) Albumin 2.9 G/DL (3.4-5.0) L Globulin 3.8 g/dL Albumin/Globulin Ratio 0.8 (1.0-2.7) L Hepatitis B Surface Antigen Negative (NEGATIVE) Test 07/17/19 03:40 White Blood Count 11.1 K/UL (4.8-10.8) H Red Blood Count 3.71 M/UL (4.70-6.10) L Hemoglobin 12.4 G/DL (14.2-18.0) L Hematocrit 37.2 % (42.0-52.0) L Mean Corpuscular Volume 100 FL (80-99) H Mean Corpuscular Hemoglobin 33.4 PG (27.0-31.0) H Mean Corpuscular Hemoglobin Concent 33.3 G/DL (32.0-36.0) Red Cell Distribution Width 14.9 % (11.6-14.8) H Platelet Count 108 K/UL (150-450) L Mean Platelet Volume 11.0 FL (6.5-10.1) H Neutrophils (%) (Auto) 83.8 % (45.0-75.0) H Lymphocytes (%) (Auto) 9.3 % (20.0-45.0) L Monocytes (%) (Auto) 6.4 % (1.0-10.0) Eosinophils (%) (Auto) 0.1 % (0.0-3.0) Basophils (%) (Auto) 0.3 % (0.0-2.0) Erythrocyte Sedimentation Rate 29 MM/HR (0-20) H Reticulocyte Count 1.8 % (0.5-2.0) Prothrombin Time 11.1 SEC (9.30-11.50) Prothromb Time International Ratio 1.0 (0.9-1.1) Activated Partial Thromboplast Time 25 SEC (23-33) Sodium Level 147 MMOL/L (136-145) H Potassium Level 3.9 MMOL/L (3.5-5.1) Chloride Level 108 MMOL/L (98-107) H Carbon Dioxide Level 25 MMOL/L (21-32) Anion Gap 14 mmol/L (5-15) Blood Urea Nitrogen 55 mg/dL (7-18) H Creatinine 9.1 MG/DL (0.55-1.30) H Estimat Glomerular Filtration Rate 7.5 mL/min (>60) Glucose Level 144 MG/DL (74-106) H Hemoglobin A1c 4.7 % (4.3-6.0) Lactic Acid Level 1.50 mmol/L (0.4-2.0) Uric Acid 5.5 MG/DL (2.6-7.2) Calcium Level 7.8 MG/DL (8.5-10.1) L Phosphorus Level 3.3 MG/DL (2.5-4.9) Magnesium Level 1.9 MG/DL (1.8-2.4) Iron Level 24 ug/dL (50-175) L Total Iron Binding Capacity 159 ug/dL (250-450) L Percent Iron Saturation 15 % (15-50) Unsaturated Iron Binding 135 ug/dL (112-346) Ferritin 1719 NG/ML (8-388) H Total Bilirubin 0.6 MG/DL (0.2-1.0) Direct Bilirubin 0.1 MG/DL (0.0-0.3) Gamma Glutamyl Transpeptidase 27 U/L (5-85) Aspartate Amino Transf (AST/SGOT) 32 U/L (15-37) Alanine Aminotransferase (ALT/SGPT) 30 U/L (12-78) Alkaline Phosphatase 124 U/L (46-116) H Total Creatine Kinase 46 U/L (26-308) Troponin I 0.279 ng/mL (0.000-0.056) C-Reactive Protein, Quantitative 1.7 mg/dL (0.00-0.90) H Pro-B-Type Natriuretic Peptide 34681 pg/mL (0-125) H Total Protein 7.6 G/DL (6.4-8.2) Albumin 3.1 G/DL (3.4-5.0) L Globulin 4.0 g/dL Albumin/Globulin Ratio 0.7 (1.0-2.7) L Triglycerides Level 178 MG/DL (30-150) H Cholesterol Level 91 MG/DL (< 200) LDL Cholesterol 36 mg/dL (<100) HDL Cholesterol 32 MG/DL (40-60) L Cholesterol/HDL Ratio 2.8 (3.3-4.4) L Amylase Level 86 U/L (25-115) Lipase 69 U/L (73-393) L Vitamin B12 Level 590 PG/ML (193-986) Folate 7.6 NG/ML (8.6-58.9) L Thyroid Stimulating Hormone (TSH) 3.258 uiU/mL (0.358-3.740) Free Thyroxine 0.89 NG/DL (0.76-1.46) Current Medications Medications (Trade) Dose Ordered Sig/David Route PRN Reason Start Time Stop Time Status Last Admin Dose Admin Acetaminophen (Tylenol) 650 mg Q4H PRN ORAL Fever 07/16/19 14:00 08/15/19 13:59 Acetaminophen (Tylenol) 650 mg Q4H PRN RECTAL FEVER 07/16/19 13:45 08/15/19 13:44 Albuterol/ Ipratropium (Albuterol/ Ipratropium) 3 ml Q4H PRN HHN Shortness of Breath 07/16/19 14:00 07/21/19 13:59 Carvedilol (Coreg) 25 mg EVERY 12 HOURS ORAL 07/16/19 21:00 08/15/19 20:59 07/16/19 20:45 Dextrose (Dextrose 50%) 25 ml Q30M PRN IV Hypoglycemia 07/16/19 14:00 08/15/19 13:59 Dextrose (Dextrose 50%) 50 ml Q30M PRN IV Hypoglycemia 07/16/19 14:00 08/15/19 13:59 Heparin Sodium (Porcine) (Heparin 5000 units/ml) 5,000 units EVERY 8 HOURS SUBQ 07/16/19 14:00 08/15/19 13:59 Hydralazine HCl (Apresoline) 10 mg Q4H PRN IV bp over 160 syst 07/16/19 14:00 08/15/19 13:59 Lorazepam (Ativan 2mg/ml 1ml) 2 mg Q2H PRN IV agitation 07/16/19 14:00 07/23/19 13:59 07/17/19 07:07 Metoclopramide HCl (Reglan) 10 mg Q6H PRN IVP Nausea & Vomiting 07/16/19 13:45 08/15/19 13:44 07/17/19 07:07 Morphine Sulfate (Morphine Sulfate) 4 mg Q4H PRN IVP Severe Pain (Pain Scale 7-10) 07/16/19 14:00 07/23/19 13:59 Pantoprazole (Protonix) 40 mg EVERY 12 HOURS IVP 07/16/19 21:00 08/15/19 20:59 07/17/19 09:43 Sennosides (Senokot) 8.6 mg BIDPRN PRN ORAL Constipation 07/16/19 13:45 08/15/19 13:44 Sevelamer Carbonate (Renvela) 800 mg THREE TIMES A DAY ORAL 07/16/19 18:00 08/15/19 12:59 07/17/19 09:43 Sodium Chloride 1,000 ml @ 50 mls/hr Q20H IVLG 07/16/19 13:15 08/15/19 08:59 07/17/19 09:52 Lee Ann Hyatt M.D. Jul 17, 2019 10:50
--- NOTE | 2019-07-17 10:50 | NUR ---
RD ASSESSMENT & RECOMMENDATIONS SEE CARE ACTIVITY FOR COMPLETE ASSESSMENT DAILY ESTIMATED NEEDS: Needs based on Critical care, ESRD on HD 66.5kg abw 25-30 kcals/kg 4623-4760 total kcals 1.2-2 g protein/kg 80-133 g total protein Fluid per MD, on HD NUTRITION DIAGNOSIS: Swallowing difficulty r/t respiratory status as evidenced by s/p cardiac arrest in OR for scrotal lesion, now intubated, ICU status, NPO. ENTERAL NUTRITION RECOMMENDATIONS: Nepro @40ml/hr x24 hrs to provide 960ml, 1728 kcal, 78g pro, 698ml free H2O - As medically appropriate rec to initiate non oral feeds. - Nepro @10ml/hr for 6 hrs, advance as tolerated 10ml/hr q4-6 hrs to goal. - Flush per MD / HOB over 30 degrees * When tolerating TF well, rec added prosource 1 pack daily to better meet est pro needs. ADDITIONAL RECOMMENDATIONS: 1) TF recs as above as medically appropriate 2) Surgical wound healing: Add ARAM BID + nephrovite daily
[2019-07-17] MEDS ORDERED: Haloperidol 5mg/ml Inj IVPB PRN (11:00)
--- NOTE | 2019-07-17 11:26 | Nephrology Progress Note ---
Assessment/Plan Problem List: (1) ESRD (end stage renal disease) (2) Acute respiratory failure (3) Cardiac arrest (4) Diabetes mellitus (5) Cardiomyopathy Assessment interoperative cardiac arrest Cardiomyopathy and Low ejfx ESRD- high K BP low at this time s/p Asystole in OR Plan hold coreg for low bp support BP Pulm support HD 07/16 next 07/18 2D echo noted per orders Subjective ROS Limited/Unobtainable: Yes Constitutional: Reports: other - RN reports patient vomited Objective Objective Last 24 Hour Vital Signs Date Time Temp Pulse Resp B/P (MAP) Pulse Ox O2 Delivery O2 Flow Rate FiO2 07/17/19 11:02 107 14 40 07/17/19 11:00 104 14 96/59 (71) 100 07/17/19 10:51 100 07/17/19 10:51 103 14 40 07/17/19 10:00 108 14 121/82 (95) 100 07/17/19 09:30 107 14 90/61 (71) 100 07/17/19 09:00 110 18 104/70 (81) 100 07/17/19 09:00 109 90/61 07/17/19 08:58 107 14 40 07/17/19 08:30 111 14 94/56 (69) 98 07/17/19 08:00 40 07/17/19 08:00 Mechanical Ventilator 07/17/19 08:00 98.9 110 5 132/73 (92) 100 07/17/19 07:15 111 14 40 07/17/19 07:00 111 14 152/85 (107) 100 07/17/19 06:30 108 25 07/17/19 06:00 116 15 174/86 (115) 100 07/17/19 05:29 117 14 50 07/17/19 05:00 114 18 161/88 (112) 100 07/17/19 04:00 50 07/17/19 04:00 Mechanical Ventilator 07/17/19 04:00 99.2 116 15 177/89 (118) 100 07/17/19 03:41 115 07/17/19 03:00 114 18 166/85 (112) 100 07/17/19 02:52 112 14 50 07/17/19 02:00 110 14 153/85 (107) 100 07/17/19 01:19 110 15 50 07/17/19 01:00 106 20 186/103 (130) 100 07/17/19 00:00 Mechanical Ventilator 07/17/19 00:00 110 07/17/19 00:00 50 07/17/19 00:00 99.8 110 0 138/82 (100) 100 07/16/19 23:45 110 20 157/97 (117) 100 07/16/19 23:30 121 14 153/88 (109) 100 07/16/19 23:15 110 14 113/78 (90) 100 07/16/19 23:13 111 14 50 07/16/19 23:00 113 14 156/79 (104) 100 07/16/19 22:30 105 14 136/76 (96) 100 07/16/19 22:00 109 13 154/81 (105) 100 07/16/19 21:30 110 14 146/74 (98) 100 07/16/19 21:19 113 17 50 07/16/19 21:00 128 0 154/83 (106) 100 07/16/19 20:45 129 195/107 07/16/19 20:30 129 15 148/77 (100) 100 07/16/19 20:00 128 07/16/19 20:00 98.9 126 14 141/91 (108) 100 07/16/19 20:00 50 07/16/19 19:10 115 17 50 07/16/19 19:00 122 16 138/77 (97) 100 07/16/19 18:00 118 14 143/76 (98) 100 07/16/19 17:25 111 14 50 07/16/19 17:00 98.8 115 16 144/82 (102) 100 07/16/19 16:00 115 17 147/85 (105) 100 07/16/19 16:00 Mechanical Ventilator 07/16/19 16:00 50 07/16/19 15:55 111 07/16/19 15:06 111 14 50 07/16/19 15:00 119 17 169/99 (122) 100 07/16/19 14:00 115 15 140/100 (113) 100 07/16/19 13:29 116 14 50 07/16/19 13:00 110 14 150/92 (111) 100 07/16/19 12:42 Mechanical Ventilator 1/27/20 12:40 50 07/16/19 12:35 105 07/16/19 12:20 50 07/16/19 12:20 98.1 106 14 108/45 (66) 100 07/16/19 12:11 96 12 112/52 100 Endotracheal Tube 100 07/16/19 12:01 97.2 95 12 113/54 100 Endotracheal Tube 100 07/16/19 11:50 95 12 108/52 100 Endotracheal Tube 100 07/16/19 11:40 93 15 100/41 100 Endotracheal Tube 100 07/16/19 11:39 91 12 100 Mechanical Ventilator 45.0 100 07/16/19 11:32 91 12 100 07/16/19 11:25 91 12 88/45 100 Endotracheal Tube 100 Intake and Output 07/16/19 07/17/19 19:00 07:00 Intake Total 962.5 ml 1600 ml Output Total 5 ml 600 ml Balance 957.5 ml 1000 ml Intake IV Total 962.5 ml 600 ml Hemodialysis 1000 ml Output Urine Total 0 ml 0 ml Emesis 600 ml Estimated Blood Loss 5 ml Laboratory Tests 07/16/19 12:05: White Blood Count 8.6, Red Blood Count 3.87L, Hemoglobin 12.7L, Hematocrit 38.9L , Mean Corpuscular Volume 101H, Mean Corpuscular Hemoglobin 32.7H, Mean Corpuscular Hemoglobin Concent 32.5, Red Cell Distribution Width 14.9H, Platelet Count 113L, Mean Platelet Volume 10.3H, Neutrophils (%) (Auto) 82.5H, Lymphocytes (%) (Auto) 9.7L, Monocytes (%) (Auto) 3.5, Eosinophils (%) (Auto) 3.9H, Basophils (%) (Auto) 0.4, Prothrombin Time 10.7, Prothromb Time International Ratio 1.0, Activated Partial Thromboplast Time 25, Sodium Level 141, Potassium Level 5.4#H, Chloride Level 105, Carbon Dioxide Level 26, Anion Gap 10, Blood Urea Nitrogen 67H, Creatinine 11.5H, Estimat Glomerular Filtration Rate 5.7, Glucose Level 176H, Calcium Level 8.0L, Total Bilirubin 0.4 , Aspartate Amino Transf (AST/SGOT) 44H, Alanine Aminotransferase (ALT/SGPT) 46 , Alkaline Phosphatase 136H, Troponin I 0.072H, Pro-B-Type Natriuretic Peptide 20936P, Total Protein 6.7, Albumin 2.9L, Globulin 3.8, Albumin/Globulin Ratio 0.8L, Hepatitis B Surface Antigen Negative 07/16/19 15:50: Arterial Blood pH 7.388, Arterial Blood Partial Pressure CO2 39.3, Arterial Blood Partial Pressure O2 152.6H, Arterial Blood HCO3 23.1, Arterial Blood Oxygen Saturation 98.6, Arterial Blood Base Excess -1.6, Landon Test Positive 07/16/19 21:30: Troponin I 0.315H 07/17/19 03:40: White Blood Count 11.1H, Red Blood Count 3.71L, Hemoglobin 12.4L, Hematocrit 37.2L, Mean Corpuscular Volume 100H, Mean Corpuscular Hemoglobin 33.4H, Mean Corpuscular Hemoglobin Concent 33.3, Red Cell Distribution Width 14.9H, Platelet Count 108L, Mean Platelet Volume 11.0H, Neutrophils (%) (Auto) 83.8H, Lymphocytes (%) (Auto) 9.3L, Monocytes (%) (Auto) 6.4, Eosinophils (%) (Auto) 0.1, Basophils (%) (Auto) 0.3, Prothrombin Time 11.1, Prothromb Time International Ratio 1.0, Activated Partial Thromboplast Time 25, Sodium Level 147H, Potassium Level 3.9, Chloride Level 108H, Carbon Dioxide Level 25, Anion Gap 14, Blood Urea Nitrogen 55H, Creatinine 9.1H, Estimat Glomerular Filtration Rate 7.5, Glucose Level 144H, Calcium Level 7.8L, Total Bilirubin 0.6, Aspartate Amino Transf (AST/SGOT) 32, Alanine Aminotransferase (ALT/SGPT) 30, Alkaline Phosphatase 124H, Troponin I 0.279H, Pro-B-Type Natriuretic Peptide 15356P, Total Protein 7.6, Albumin 3.1L, Globulin 4.0, Albumin/Globulin Ratio 0.7L, Erythrocyte Sedimentation Rate 29H, Reticulocyte Count 1.8, Hemoglobin A1c 4.7, Lactic Acid Level 1.50, Uric Acid 5.5, Phosphorus Level 3.3, Magnesium Level 1.9, Iron Level 24L, Total Iron Binding Capacity 159L, Percent Iron Saturation 15, Unsaturated Iron Binding 135, Ferritin 1719H, Direct Bilirubin 0.1, Gamma Glutamyl Transpeptidase 27, Total Creatine Kinase 46, C-Reactive Protein, Quantitative 1.7H, Triglycerides Level 178H, Cholesterol Level 91, LDL Cholesterol 36, HDL Cholesterol 32L, Cholesterol/HDL Ratio 2.8L, Amylase Level 86, Lipase 69L, Vitamin B12 Level 590, Folate 7.6L, Thyroid Stimulating Hormone (TSH) 3.258, Free Thyroxine 0.89 Height (Feet): 5 Height (Inches): 5.50 Weight (Pounds): 168 General Appearance: no apparent distress EENT: other - vented Cardiovascular: tachycardia Respiratory/Chest: decreased breath sounds Abdomen: soft Daniel Delgadillo MD Jul 17, 2019 11:26
--- NOTE | 2019-07-17 11:30 | NUR ---
NURSE NOTES: Pt was seen by Dr Soto. Order noted to start weaning determination from AC vent settings. RT at bedside. Attempted for 10minutes, pt unable to tolerate, low spontaneous volumes, tachycardic and tachypneic. Pt was placed back to previous vent settings.
[2019-07-17] MEDS ORDERED: Haloperidol Lactate 5 MG in D5W 55 ML IVPB PRN (12:00)
[2019-07-17] MEDS ORDERED: Levofloxacin 500mg tab ORAL SCH (12:00)
[2019-07-17] MEDS: D5 1/2NS 1,000 ML IV SCH (12:46)
[2019-07-17] MEDS: Nitroglycerin Patch 0.4mg TDERMAL SCH (12:54)
--- NOTE | 2019-07-17 12:59 | NUR ---
RN WOUND NOTE PT was admitted to ICU on 07/16/2019. Pt was in sleep, orally intubated. Emergency contact listed: Tra Fritz (spouse) [phone]. WILDER left a vm to Tra Fritz for call back. There is no AD/POLST in the chart. WILDER will continue to F/U. Signed: 07/17/19 at 1300 by NEDA HDZ <Co-Signature Required>
--- NOTE | 2019-07-17 13:00 | NUR ---
NURSE NOTES: Pt was seen by Dr Galloway. Remains ST on youth nutritional monitor. AFebrile. Emesis dark green liquid output, OGT remains on low intermittent suction. Reglan was administered per PRN order for nausea/vomiting. Pt was weaned for 20minutes from AC vent settings. Pt was tachypneic, HR elevated to 126, low spontaneous volumes. Pt was switched back to AC vent settings by RT at bedside.
--- NOTE | 2019-07-17 13:18 | GI Progress Note ---
Assessment/Plan Problems: (1) Scrotal lesion ICD Codes: N50.9 - Disorder of male genital organs, unspecified SNOMED: 21641111 (2) Cardiac arrest ICD Codes: I46.9 - Cardiac arrest, cause unspecified SNOMED: 495532854 (3) Anemia ICD Codes: D64.9 - Anemia, unspecified SNOMED: 573288790 (4) Constipation ICD Codes: K59.00 - Constipation, unspecified SNOMED: 73652875 Status: unchanged Status Narrative Discussed with Dr. Delarosa. Assessment/Plan Patient not stable for any GI procedures at this time had multiple eps of emesis last night maintain NPO + IVF follow up cardiology recs Anemia work-up Occult blood stool to rule out any GI bleed prn transfusions ppi OGT to LIS will follow The patient was seen and examined at bedside and all new and available data was reviewed in the patients chart. I agree with the above findings, impression and plan. (Patient seen earlier today. Signature stamp does not reflect patient encounter time.). - Richy Delarosa MD Subjective Subjective limited Objective Last 24 Hour Vital Signs Date Time Temp Pulse Resp B/P (MAP) Pulse Ox O2 Delivery O2 Flow Rate FiO2 07/17/19 12:54 164/78 07/17/19 12:45 40 07/17/19 12:30 102 21 40 07/17/19 11:02 107 14 40 07/17/19 11:00 104 14 96/59 (71) 100 07/17/19 10:51 100 07/17/19 10:51 103 14 40 07/17/19 10:00 108 14 121/82 (95) 100 07/17/19 09:30 107 14 90/61 (71) 100 07/17/19 09:00 110 18 104/70 (81) 100 07/17/19 09:00 109 90/61 07/17/19 08:58 107 14 40 07/17/19 08:30 111 14 94/56 (69) 98 07/17/19 08:00 40 07/17/19 08:00 Mechanical Ventilator 07/17/19 08:00 98.9 110 5 132/73 (92) 100 07/17/19 07:15 111 14 40 07/17/19 07:00 111 14 152/85 (107) 100 07/17/19 06:30 108 25 1/28/20 06:00 116 15 174/86 (115) 100 07/17/19 05:29 117 14 50 07/17/19 05:00 114 18 161/88 (112) 100 07/17/19 04:00 50 07/17/19 04:00 Mechanical Ventilator 07/17/19 04:00 99.2 116 15 177/89 (118) 100 07/17/19 03:41 115 07/17/19 03:00 114 18 166/85 (112) 100 07/17/19 02:52 112 14 50 07/17/19 02:00 110 14 153/85 (107) 100 07/17/19 01:19 110 15 50 07/17/19 01:00 106 20 186/103 (130) 100 07/17/19 00:00 Mechanical Ventilator 07/17/19 00:00 110 07/17/19 00:00 50 07/17/19 00:00 99.8 110 0 138/82 (100) 100 07/16/19 23:45 110 20 157/97 (117) 100 07/16/19 23:30 121 14 153/88 (109) 100 07/16/19 23:15 110 14 113/78 (90) 100 07/16/19 23:13 111 14 50 07/16/19 23:00 113 14 156/79 (104) 100 07/16/19 22:30 105 14 136/76 (96) 100 07/16/19 22:00 109 13 154/81 (105) 100 07/16/19 21:30 110 14 146/74 (98) 100 07/16/19 21:19 113 17 50 07/16/19 21:00 128 0 154/83 (106) 100 07/16/19 20:45 129 195/107 07/16/19 20:30 129 15 148/77 (100) 100 07/16/19 20:00 128 07/16/19 20:00 98.9 126 14 141/91 (108) 100 07/16/19 20:00 50 07/16/19 19:10 115 17 50 07/16/19 19:00 122 16 138/77 (97) 100 07/16/19 18:00 118 14 143/76 (98) 100 07/16/19 17:25 111 14 50 07/16/19 17:00 98.8 115 16 144/82 (102) 100 07/16/19 16:00 115 17 147/85 (105) 100 07/16/19 16:00 Mechanical Ventilator 07/16/19 16:00 50 07/16/19 15:55 111 07/16/19 15:06 111 14 50 07/16/19 15:00 119 17 169/99 (122) 100 07/16/19 14:00 115 15 140/100 (113) 100 07/16/19 13:29 116 14 50 Intake and Output 07/16/19 07/17/19 19:00 07:00 Intake Total 962.5 ml 1600 ml Output Total 5 ml 600 ml Balance 957.5 ml 1000 ml Intake IV Total 962.5 ml 600 ml Hemodialysis 1000 ml Output Urine Total 0 ml 0 ml Emesis 600 ml Estimated Blood Loss 5 ml Laboratory Tests Test 07/16/19 15:50 07/16/19 21:30 07/17/19 03:40 Arterial Blood pH 7.388 (7.350-7.450) Arterial Blood Partial Pressure CO2 39.3 mmHg (35.0-45.0) Arterial Blood Partial Pressure O2 152.6 mmHg (75.0-100.0) H Arterial Blood HCO3 23.1 mmol/L (22.0-26.0) Arterial Blood Oxygen Saturation 98.6 % (95-100) Arterial Blood Base Excess -1.6 (-2-2) Landon Test Positive Troponin I 0.315 ng/mL (0.000-0.056) 0.279 ng/mL (0.000-0.056) White Blood Count 11.1 K/UL (4.8-10.8) H Red Blood Count 3.71 M/UL (4.70-6.10) L Hemoglobin 12.4 G/DL (14.2-18.0) L Hematocrit 37.2 % (42.0-52.0) L Mean Corpuscular Volume 100 FL (80-99) H Mean Corpuscular Hemoglobin 33.4 PG (27.0-31.0) H Mean Corpuscular Hemoglobin Concent 33.3 G/DL (32.0-36.0) Red Cell Distribution Width 14.9 % (11.6-14.8) H Platelet Count 108 K/UL (150-450) L Mean Platelet Volume 11.0 FL (6.5-10.1) H Neutrophils (%) (Auto) 83.8 % (45.0-75.0) H Lymphocytes (%) (Auto) 9.3 % (20.0-45.0) L Monocytes (%) (Auto) 6.4 % (1.0-10.0) Eosinophils (%) (Auto) 0.1 % (0.0-3.0) Basophils (%) (Auto) 0.3 % (0.0-2.0) Erythrocyte Sedimentation Rate 29 MM/HR (0-20) H Reticulocyte Count 1.8 % (0.5-2.0) Prothrombin Time 11.1 SEC (9.30-11.50) Prothromb Time International Ratio 1.0 (0.9-1.1) Activated Partial Thromboplast Time 25 SEC (23-33) Sodium Level 147 MMOL/L (136-145) H Potassium Level 3.9 MMOL/L (3.5-5.1) Chloride Level 108 MMOL/L (98-107) H Carbon Dioxide Level 25 MMOL/L (21-32) Anion Gap 14 mmol/L (5-15) Blood Urea Nitrogen 55 mg/dL (7-18) H Creatinine 9.1 MG/DL (0.55-1.30) H Estimat Glomerular Filtration Rate 7.5 mL/min (>60) Glucose Level 144 MG/DL (74-106) H Hemoglobin A1c 4.7 % (4.3-6.0) Lactic Acid Level 1.50 mmol/L (0.4-2.0) Uric Acid 5.5 MG/DL (2.6-7.2) Calcium Level 7.8 MG/DL (8.5-10.1) L Phosphorus Level 3.3 MG/DL (2.5-4.9) Magnesium Level 1.9 MG/DL (1.8-2.4) Iron Level 24 ug/dL (50-175) L Total Iron Binding Capacity 159 ug/dL (250-450) L Percent Iron Saturation 15 % (15-50) Unsaturated Iron Binding 135 ug/dL (112-346) Ferritin 1719 NG/ML (8-388) H Total Bilirubin 0.6 MG/DL (0.2-1.0) Direct Bilirubin 0.1 MG/DL (0.0-0.3) Gamma Glutamyl Transpeptidase 27 U/L (5-85) Aspartate Amino Transf (AST/SGOT) 32 U/L (15-37) Alanine Aminotransferase (ALT/SGPT) 30 U/L (12-78) Alkaline Phosphatase 124 U/L (46-116) H Total Creatine Kinase 46 U/L (26-308) C-Reactive Protein, Quantitative 1.7 mg/dL (0.00-0.90) H Pro-B-Type Natriuretic Peptide 01026 pg/mL (0-125) H Total Protein 7.6 G/DL (6.4-8.2) Albumin 3.1 G/DL (3.4-5.0) L Globulin 4.0 g/dL Albumin/Globulin Ratio 0.7 (1.0-2.7) L Triglycerides Level 178 MG/DL (30-150) H Cholesterol Level 91 MG/DL (< 200) LDL Cholesterol 36 mg/dL (<100) HDL Cholesterol 32 MG/DL (40-60) L Cholesterol/HDL Ratio 2.8 (3.3-4.4) L Amylase Level 86 U/L (25-115) Lipase 69 U/L (73-393) L Vitamin B12 Level 590 PG/ML (193-986) Folate 7.6 NG/ML (8.6-58.9) L Thyroid Stimulating Hormone (TSH) 3.258 uiU/mL (0.358-3.740) Free Thyroxine 0.89 NG/DL (0.76-1.46) Height (Feet): 5 Height (Inches): 5.50 Weight (Pounds): 168 General Appearance: no apparent distress Cardiovascular: normal rate Respiratory/Chest: normal breath sounds, no respiratory distress Abdominal Exam: normal bowel sounds, non tender, soft, other - OGT Belem Lynch ADMINISTRATIVE SUPPORT ASSISTANT Jul 17, 2019 13:18
--- NOTE | 2019-07-17 13:53 | Surgery Progress Note ---
Surgery Progress Note Subjective Procedure Performed 1. excision of scrotal lesion - aborted Additional Comments Patient seen and examined bedside. On vent support. Spontaneously breathing well today. Had emesis. NG tube placed and serial bilious output. Labs noted. More awake and responsive today. Objective Last 24 Hour Vital Signs Date Time Temp Pulse Resp B/P (MAP) Pulse Ox O2 Delivery O2 Flow Rate FiO2 07/17/19 13:00 114 18 157/79 (105) 100 07/17/19 12:54 164/78 07/17/19 12:45 40 07/17/19 12:30 102 21 40 07/17/19 12:00 98.8 105 14 99/60 (73) 100 07/17/19 12:00 Mechanical Ventilator 07/17/19 12:00 40 07/17/19 11:02 107 14 40 07/17/19 11:00 104 14 96/59 (71) 100 07/17/19 10:51 100 07/17/19 10:51 103 14 40 07/17/19 10:00 108 14 121/82 (95) 100 07/17/19 09:30 107 14 90/61 (71) 100 07/17/19 09:00 110 18 104/70 (81) 100 07/17/19 09:00 109 90/61 07/17/19 08:58 107 14 40 07/17/19 08:30 111 14 94/56 (69) 98 07/17/19 08:00 40 07/17/19 08:00 Mechanical Ventilator 07/17/19 08:00 98.9 110 5 132/73 (92) 100 07/17/19 07:15 111 14 40 07/17/19 07:00 111 14 152/85 (107) 100 07/17/19 06:30 108 25 07/17/19 06:00 116 15 174/86 (115) 100 07/17/19 05:29 117 14 50 07/17/19 05:00 114 18 161/88 (112) 100 07/17/19 04:00 50 07/17/19 04:00 Mechanical Ventilator 07/17/19 04:00 99.2 116 15 177/89 (118) 100 07/17/19 03:41 115 07/17/19 03:00 114 18 166/85 (112) 100 07/17/19 02:52 112 14 50 07/17/19 02:00 110 14 153/85 (107) 100 07/17/19 01:19 110 15 50 07/17/19 01:00 106 20 186/103 (130) 100 07/17/19 00:00 Mechanical Ventilator 07/17/19 00:00 110 07/17/19 00:00 50 07/17/19 00:00 99.8 110 0 138/82 (100) 100 07/16/19 23:45 110 20 157/97 (117) 100 07/16/19 23:30 121 14 153/88 (109) 100 07/16/19 23:15 110 14 113/78 (90) 100 07/16/19 23:13 111 14 50 07/16/19 23:00 113 14 156/79 (104) 100 07/16/19 22:30 105 14 136/76 (96) 100 07/16/19 22:00 109 13 154/81 (105) 100 07/16/19 21:30 110 14 146/74 (98) 100 07/16/19 21:19 113 17 50 07/16/19 21:00 128 0 154/83 (106) 100 07/16/19 20:45 129 195/107 07/16/19 20:30 129 15 148/77 (100) 100 07/16/19 20:00 128 07/16/19 20:00 98.9 126 14 141/91 (108) 100 07/16/19 20:00 50 07/16/19 19:10 115 17 50 07/16/19 19:00 122 16 138/77 (97) 100 07/16/19 18:00 118 14 143/76 (98) 100 07/16/19 17:25 111 14 50 07/16/19 17:00 98.8 115 16 144/82 (102) 100 07/16/19 16:00 115 17 147/85 (105) 100 07/16/19 16:00 Mechanical Ventilator 07/16/19 16:00 50 07/16/19 15:55 111 07/16/19 15:06 111 14 50 07/16/19 15:00 119 17 169/99 (122) 100 07/16/19 14:00 115 15 140/100 (113) 100 I&O Intake and Output 07/16/19 07/17/19 19:00 07:00 Intake Total 962.5 ml 1600 ml Output Total 5 ml 600 ml Balance 957.5 ml 1000 ml Intake IV Total 962.5 ml 600 ml Hemodialysis 1000 ml Output Urine Total 0 ml 0 ml Emesis 600 ml Estimated Blood Loss 5 ml Dressing: saturated Wound: other Drains: other Cardiovascular: RSR Respiratory: decreased breath sounds Abdomen: soft, present bowel sounds Extremities: no cyanosis, other Laboratory Tests Test 07/16/19 15:50 07/16/19 21:30 07/17/19 03:40 Arterial Blood pH 7.388 (7.350-7.450) Arterial Blood Partial Pressure CO2 39.3 mmHg (35.0-45.0) Arterial Blood Partial Pressure O2 152.6 mmHg (75.0-100.0) H Arterial Blood HCO3 23.1 mmol/L (22.0-26.0) Arterial Blood Oxygen Saturation 98.6 % (95-100) Arterial Blood Base Excess -1.6 (-2-2) Landon Test Positive Troponin I 0.315 ng/mL (0.000-0.056) 0.279 ng/mL (0.000-0.056) White Blood Count 11.1 K/UL (4.8-10.8) H Red Blood Count 3.71 M/UL (4.70-6.10) L Hemoglobin 12.4 G/DL (14.2-18.0) L Hematocrit 37.2 % (42.0-52.0) L Mean Corpuscular Volume 100 FL (80-99) H Mean Corpuscular Hemoglobin 33.4 PG (27.0-31.0) H Mean Corpuscular Hemoglobin Concent 33.3 G/DL (32.0-36.0) Red Cell Distribution Width 14.9 % (11.6-14.8) H Platelet Count 108 K/UL (150-450) L Mean Platelet Volume 11.0 FL (6.5-10.1) H Neutrophils (%) (Auto) 83.8 % (45.0-75.0) H Lymphocytes (%) (Auto) 9.3 % (20.0-45.0) L Monocytes (%) (Auto) 6.4 % (1.0-10.0) Eosinophils (%) (Auto) 0.1 % (0.0-3.0) Basophils (%) (Auto) 0.3 % (0.0-2.0) Erythrocyte Sedimentation Rate 29 MM/HR (0-20) H Reticulocyte Count 1.8 % (0.5-2.0) Prothrombin Time 11.1 SEC (9.30-11.50) Prothromb Time International Ratio 1.0 (0.9-1.1) Activated Partial Thromboplast Time 25 SEC (23-33) Sodium Level 147 MMOL/L (136-145) H Potassium Level 3.9 MMOL/L (3.5-5.1) Chloride Level 108 MMOL/L (98-107) H Carbon Dioxide Level 25 MMOL/L (21-32) Anion Gap 14 mmol/L (5-15) Blood Urea Nitrogen 55 mg/dL (7-18) H Creatinine 9.1 MG/DL (0.55-1.30) H Estimat Glomerular Filtration Rate 7.5 mL/min (>60) Glucose Level 144 MG/DL (74-106) H Hemoglobin A1c 4.7 % (4.3-6.0) Lactic Acid Level 1.50 mmol/L (0.4-2.0) Uric Acid 5.5 MG/DL (2.6-7.2) Calcium Level 7.8 MG/DL (8.5-10.1) L Phosphorus Level 3.3 MG/DL (2.5-4.9) Magnesium Level 1.9 MG/DL (1.8-2.4) Iron Level 24 ug/dL (50-175) L Total Iron Binding Capacity 159 ug/dL (250-450) L Percent Iron Saturation 15 % (15-50) Unsaturated Iron Binding 135 ug/dL (112-346) Ferritin 1719 NG/ML (8-388) H Total Bilirubin 0.6 MG/DL (0.2-1.0) Direct Bilirubin 0.1 MG/DL (0.0-0.3) Gamma Glutamyl Transpeptidase 27 U/L (5-85) Aspartate Amino Transf (AST/SGOT) 32 U/L (15-37) Alanine Aminotransferase (ALT/SGPT) 30 U/L (12-78) Alkaline Phosphatase 124 U/L (46-116) H Total Creatine Kinase 46 U/L (26-308) C-Reactive Protein, Quantitative 1.7 mg/dL (0.00-0.90) H Pro-B-Type Natriuretic Peptide 09335 pg/mL (0-125) H Total Protein 7.6 G/DL (6.4-8.2) Albumin 3.1 G/DL (3.4-5.0) L Globulin 4.0 g/dL Albumin/Globulin Ratio 0.7 (1.0-2.7) L Triglycerides Level 178 MG/DL (30-150) H Cholesterol Level 91 MG/DL (< 200) LDL Cholesterol 36 mg/dL (<100) HDL Cholesterol 32 MG/DL (40-60) L Cholesterol/HDL Ratio 2.8 (3.3-4.4) L Amylase Level 86 U/L (25-115) Lipase 69 U/L (73-393) L Vitamin B12 Level 590 PG/ML (193-986) Folate 7.6 NG/ML (8.6-58.9) L Thyroid Stimulating Hormone (TSH) 3.258 uiU/mL (0.358-3.740) Free Thyroxine 0.89 NG/DL (0.76-1.46) Plan Problems: (1) Scrotal lesion Assessment & Plan: Continue with 3 times daily dressings okay for bacitracin and Xeroform gauze (2) Cardiac arrest Assessment & Plan: Etiology unknown pending echo appreciate cardiology input Continue current care Wean vent as tolerated Thank you will follow with recommendations Zenon Galloway Jul 17, 2019 13:53
--- NOTE | 2019-07-17 14:07 | 48 Hour Post Anesthesia Eval ---
Post Anesthesia Evaluation Procedure: Anl Exam Under Anesthesia Date of Evaluation: Jul 17, 2019 Time of Evaluation: 14:01 Blood Pressure Systolic: 157 0: 78 Pulse Rate: 106 Respiratory Rate: 18 Temperature (Fahrenheit): 98.8 O2 Sat by Pulse Oximetry: 100 Airway: patent Nausea: No Vomiting: Yes - Vomited Food Pain Intensity: 0 Hydration Status: adequate - Had Pulmonary Infiltrates Cardiopulmonary Status: Guarded, Dilated Cardiomyopathy Mental Status/LOC: other - Remains Intubated, minamal movement. Follow-up Care/Observations: Will continue to follow this unfortunate Patient. Post-Anesthesia Complications: Complication during anesthetic, sudden extreme Bradycardia, then asystole. Cardiac compressions, amp of epinephrine and atropine, then coarse V. Fib. Another amp of epinephrine then shock applied and sinus tachycardia.Pt was then intubated and taken to the ICU for care. Devendra Burnette MD Jul 17, 2019 14:07
--- NOTE | 2019-07-17 14:42 | NUR ---
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
--- NOTE | 2019-07-17 15:00 | NUR ---
NURSE NOTES: Pt is resting comfortably. VS stable. HR is now down to 98. OGT remains on low intermittent suction with average of 50ml/hourly dark green liquid output.
--- NOTE | 2019-07-17 17:13 | NUR ---
NURSE NOTES: Contacted [facility] and spoke with Addis to schedule and confirm bedside hemodialysis for tomorrow per Dr Delgadillo's order. 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
--- NOTE | 2019-07-17 18:00 | NUR ---
NURSE NOTES: Pt was cleaned and repositioned. Incisional dressing was changed. Pt remains afebrile, on AC vent settings with 100% O2Sat. Total output of OGT to suction drainage is 200ml during my shift. Pt remains ST on vp site, HR 102.
--- NOTE | 2019-07-17 18:04 | History & Physical ---
History and Physical History & Physicial Dictated for Int Med-Dr Singleton no. [id number]. ICU Michael Perez MD Jul 17, 2019 18:04
--- NOTE | 2019-07-17 19:31 | NUR ---
HAND-OFF: Report given to Michael HOBSON. Endorsed plan of care.
--- NOTE | 2019-07-17 20:00 | NUR ---
NURSE NOTES:report received from masoud jiang open eyes touch but does not follows command orally intubated -vent moving upper and lower extremities o2 sat 100 0/0no acute resp distress noted
--- NOTE | 2019-07-17 20:46 | Cardiology Progress Note ---
Assessment/Plan Assessment/Plan 1. Status cardiac arrest, asystolic in origin. 2. Reported history of dilated cardiomyopathy that had improved in October 2018. 3. Hypertension, poorly controlled. 4. Hyperlipidemia. 5. End-stage renal disease, on hemodialysis. 6. History of systolic heart failure previously. 7. Lisinopril and penicillin allergy. 8. Diabetes mellitus. 9. Secondary hyperparathyroidism. 10. History of asthma. 11. Anemia, secondary to end-stage renal disease. 12. post arrest evidence for cardiomyopathy minro trop abn with out a peak or lorri to suggest acs an in della settign of renal failure is not specific ekg nto change personally reviewed tele personally reviewed labs noted seem to be moving all 4 ext , per other staff was more responsive early today cxr look improved bop improved s/p dialysis yest overall better keep supportive care will need to repeat echo in future to see if any recovery to suggest stress induced although wall motion not typical of [place] [facility] for neuro function recovery had ngt dvt ppx heparin rn reported yes pt with food vomit yest evening post arrest , aspiration may be a possibility ? Subjective ROS Limited/Unobtainable: Yes Subjective on vent moving all extermities in agitated fashion at thie alejo min f any response Objective Last 24 Hour Vital Signs Date Time Temp Pulse Resp B/P (MAP) Pulse Ox O2 Delivery O2 Flow Rate FiO2 07/17/19 19:00 101 14 124/67 (86) 100 07/17/19 18:54 103 17 30 07/17/19 18:00 102 14 106/61 (76) 100 07/17/19 17:02 108 16 30 07/17/19 17:00 104 19 153/90 (111) 100 07/17/19 16:00 102 07/17/19 16:00 40 07/17/19 16:00 Mechanical Ventilator 07/17/19 16:00 98.8 104 14 110/71 (84) 100 07/17/19 15:25 102 18 30 07/17/19 15:00 102 14 121/65 (83) 100 07/17/19 14:07 106 18 100 07/17/19 14:00 108 14 84/60 (68) 100 07/17/19 13:00 114 18 157/79 (105) 100 07/17/19 12:54 164/78 07/17/19 12:45 40 07/17/19 12:30 102 21 40 07/17/19 12:00 98.8 105 14 99/60 (73) 100 07/17/19 12:00 103 07/17/19 12:00 Mechanical Ventilator 07/17/19 12:00 40 07/17/19 11:02 107 14 40 07/17/19 11:00 104 14 96/59 (71) 100 07/17/19 10:51 100 07/17/19 10:51 103 14 40 07/17/19 10:00 108 14 121/82 (95) 100 07/17/19 09:30 107 14 90/61 (71) 100 07/17/19 09:00 110 18 104/70 (81) 100 07/17/19 09:00 109 90/61 07/17/19 08:58 107 14 40 07/17/19 08:30 111 14 94/56 (69) 98 07/17/19 08:00 111 07/17/19 08:00 40 07/17/19 08:00 Mechanical Ventilator 07/17/19 08:00 98.9 110 5 132/73 (92) 100 07/17/19 07:15 111 14 40 07/17/19 07:00 111 14 152/85 (107) 100 07/17/19 06:30 108 25 07/17/19 06:00 116 15 174/86 (115) 100 07/17/19 05:29 117 14 50 07/17/19 05:00 114 18 161/88 (112) 100 07/17/19 04:00 50 07/17/19 04:00 Mechanical Ventilator 07/17/19 04:00 99.2 116 15 177/89 (118) 100 07/17/19 03:41 115 07/17/19 03:00 114 18 166/85 (112) 100 07/17/19 02:52 112 14 50 07/17/19 02:00 110 14 153/85 (107) 100 07/17/19 01:19 110 15 50 07/17/19 01:00 106 20 186/103 (130) 100 07/17/19 00:00 Mechanical Ventilator 07/17/19 00:00 110 07/17/19 00:00 50 07/17/19 00:00 99.8 110 0 138/82 (100) 100 07/16/19 23:45 110 20 157/97 (117) 100 07/16/19 23:30 121 14 153/88 (109) 100 07/16/19 23:15 110 14 113/78 (90) 100 07/16/19 23:13 111 14 50 07/16/19 23:00 113 14 156/79 (104) 100 07/16/19 22:30 105 14 136/76 (96) 100 07/16/19 22:00 109 13 154/81 (105) 100 07/16/19 21:30 110 14 146/74 (98) 100 07/16/19 21:19 113 17 50 07/16/19 21:00 128 0 154/83 (106) 100 07/16/19 20:45 129 195/107 General Appearance: no apparent distress, agitated, on vent Neck: supple Cardiovascular: normal rate, tachycardia Respiratory/Chest: rhonchi - bilaterally Abdomen: normal bowel sounds, non tender, soft Extremities: no swelling Intake and Output 07/16/19 07/17/19 19:00 07:00 Intake Total 962.5 ml 1600 ml Output Total 5 ml 600 ml Balance 957.5 ml 1000 ml Intake IV Total 962.5 ml 600 ml Hemodialysis 1000 ml Output Urine Total 0 ml 0 ml Emesis 600 ml Estimated Blood Loss 5 ml Laboratory Tests Test 07/16/19 21:30 07/17/19 03:40 07/17/19 14:10 Troponin I 0.315 ng/mL (0.000-0.056) 0.279 ng/mL (0.000-0.056) 0.220 ng/mL (0.000-0.056) White Blood Count 11.1 K/UL (4.8-10.8) H Red Blood Count 3.71 M/UL (4.70-6.10) L Hemoglobin 12.4 G/DL (14.2-18.0) L Hematocrit 37.2 % (42.0-52.0) L Mean Corpuscular Volume 100 FL (80-99) H Mean Corpuscular Hemoglobin 33.4 PG (27.0-31.0) H Mean Corpuscular Hemoglobin Concent 33.3 G/DL (32.0-36.0) Red Cell Distribution Width 14.9 % (11.6-14.8) H Platelet Count 108 K/UL (150-450) L Mean Platelet Volume 11.0 FL (6.5-10.1) H Neutrophils (%) (Auto) 83.8 % (45.0-75.0) H Lymphocytes (%) (Auto) 9.3 % (20.0-45.0) L Monocytes (%) (Auto) 6.4 % (1.0-10.0) Eosinophils (%) (Auto) 0.1 % (0.0-3.0) Basophils (%) (Auto) 0.3 % (0.0-2.0) Erythrocyte Sedimentation Rate 29 MM/HR (0-20) H Reticulocyte Count 1.8 % (0.5-2.0) Prothrombin Time 11.1 SEC (9.30-11.50) Prothromb Time International Ratio 1.0 (0.9-1.1) Activated Partial Thromboplast Time 25 SEC (23-33) Sodium Level 147 MMOL/L (136-145) H Potassium Level 3.9 MMOL/L (3.5-5.1) Chloride Level 108 MMOL/L (98-107) H Carbon Dioxide Level 25 MMOL/L (21-32) Anion Gap 14 mmol/L (5-15) Blood Urea Nitrogen 55 mg/dL (7-18) H Creatinine 9.1 MG/DL (0.55-1.30) H Estimat Glomerular Filtration Rate 7.5 mL/min (>60) Glucose Level 144 MG/DL (74-106) H Hemoglobin A1c 4.7 % (4.3-6.0) Lactic Acid Level 1.50 mmol/L (0.4-2.0) Uric Acid 5.5 MG/DL (2.6-7.2) Calcium Level 7.8 MG/DL (8.5-10.1) L Phosphorus Level 3.3 MG/DL (2.5-4.9) Magnesium Level 1.9 MG/DL (1.8-2.4) Iron Level 24 ug/dL (50-175) L Total Iron Binding Capacity 159 ug/dL (250-450) L Percent Iron Saturation 15 % (15-50) Unsaturated Iron Binding 135 ug/dL (112-346) Ferritin 1719 NG/ML (8-388) H Total Bilirubin 0.6 MG/DL (0.2-1.0) Direct Bilirubin 0.1 MG/DL (0.0-0.3) Gamma Glutamyl Transpeptidase 27 U/L (5-85) Aspartate Amino Transf (AST/SGOT) 32 U/L (15-37) Alanine Aminotransferase (ALT/SGPT) 30 U/L (12-78) Alkaline Phosphatase 124 U/L (46-116) H Total Creatine Kinase 46 U/L (26-308) C-Reactive Protein, Quantitative 1.7 mg/dL (0.00-0.90) H Pro-B-Type Natriuretic Peptide 36921 pg/mL (0-125) H Total Protein 7.6 G/DL (6.4-8.2) Albumin 3.1 G/DL (3.4-5.0) L Globulin 4.0 g/dL Albumin/Globulin Ratio 0.7 (1.0-2.7) L Triglycerides Level 178 MG/DL (30-150) H Cholesterol Level 91 MG/DL (< 200) LDL Cholesterol 36 mg/dL (<100) HDL Cholesterol 32 MG/DL (40-60) L Cholesterol/HDL Ratio 2.8 (3.3-4.4) L Amylase Level 86 U/L (25-115) Lipase 69 U/L (73-393) L Vitamin B12 Level 590 PG/ML (193-986) Folate 7.6 NG/ML (8.6-58.9) L Thyroid Stimulating Hormone (TSH) 3.258 uiU/mL (0.358-3.740) Free Thyroxine 0.89 NG/DL (0.76-1.46) Emmanuel Cortés MD Jul 17, 2019 20:46
--- NOTE | 2019-07-17 22:00 | NUR ---
NURSE NOTES: reposition and suction
--- NOTE | 2019-07-17 23:30 | History and Physical Report ---
DATE OF ADMISSION: 07/16/2019 CHIEF COMPLAINT: The patient is a 49-year-old male who presents with a chief complaint of scrotal abscess. HISTORY OF PRESENT ILLNESS: The patient has a history of scrotal abscess. The patient has been evaluated by Dr. Zenon Galloway. The patient is scheduled for incision and drainage of scrotal abscess and possible fistulotomy on 07/16/2019. This patient is currently in the intensive care unit intubated. The patient suffered sudden cardiac arrest during the procedure on 07/16/2019. The patient is currently admitted to the intensive care unit status post aborted scrotal fistulotomy. PAST MEDICAL HISTORY: Significant for: 1. Colon polyps, status post colonoscopy in April of 2019. 2. Hypertension. 3. Gout. 4. End stage renal disease, on hemodialysis. 5. Diabetes mellitus. PAST SURGICAL HISTORY: 1. Left A/V graft. CURRENT MEDICATIONS: 1. Allopurinol 100 mg p.o. daily. 2. Amlodipine 10 mg p.o. daily. 3. Aspirin 81 mg p.o. daily. 4. Calcitriol 0.025 mcg 3 times weekly. 5. Carvedilol 25 mg p.o. twice daily. 6. Doxazosin 8 mg p.o. twice daily. 7. Renvela 800 mg p.o. 3 times daily. ALLERGIES: To: 1. Lisinopril. 2. Penicillin. 3. Shell fish. SOCIAL HISTORY: The patient is and lives with his . The patient denies tobacco or alcohol use. PHYSICAL EXAMINATION: VITAL SIGNS: Temperature 97.8, respirations 20, pulse 96, blood pressure 148/70. GENERAL: The patient is well-developed well-nourished male, intubated and sedated in the intensive care unit. CHEST: Diffuse coarse breath sounds bilaterally with mechanical ventilation. CARDIOVASCULAR: Regular rhythm and rate. S1, S2 are normal without murmurs, rubs, or gallops. ABDOMEN: Soft, nontender, nondistended. Positive bowel sounds. No evidence of hepatosplenomegaly. Currently, no rebound or guarding noted. EXTREMITIES: Negative for clubbing, cyanosis, edema. NEUROLOGIC: Unable to assess. LABORATORY STUDIES: WBC 8.6, hemoglobin 12.7, hematocrit 38.9, platelets 113,000. Sodium 141, potassium 5.4, chloride 105, CO2 26, BUN 67, creatinine 11.5, glucose 176. ASSESSMENT: This is a 49-year-old male. 1. Scrotal fistula. 2. Status post cardiac arrest. 3. Renal failure. 4. Hypertension. 5. Gout. TREATMENT: 1. Scrotal fistula. Surgery was aborted on 07/16/2019. Follow recommendations of Surgery, Dr. Galloway. 2. Status post cardiac arrest. The patient is currently intubated in the intensive care unit. A Cardiology consultation has been obtained with Dr. Emmanuel Cortés. Follow recommendations of Cardiology. 3. Renal failure. A Nephrology consultation has been obtained with Dr. Daniel Delgadillo. Follow recommendations of Nephrology. 4. Hypertension. The patient is currently hypotensive in the intensive care unit. 5. Gout. Michael Perez M.D. DR: ALO JOB#: [id number] CC: FRANKO
[2019-07-18] VITALS (24 sets, daily range): BP systolic 112–189; BP diastolic 45–112
--- NOTE | 2019-07-18 | NUR ---
NURSE NOTES: condition un change
--- NOTE | 2019-07-18 01:00 | NUR ---
NURSE NOTES: Resting well at this time ST 104/min on the monitor. Bp stable afebrile.
--- NOTE | 2019-07-18 02:00 | NUR ---
NURSE NOTES: reposition and suction
--- NOTE | 2019-07-18 03:14 | NUR ---
NURSE NOTES: Remained calmed and resting qiuetly at this time.No bleeding noted on the scrotal area. Drsg dry and intact.
--- NOTE | 2019-07-18 04:00 | NUR ---
NURSE NOTES: complete bed bath and rt side scrotal dressing change done
[2019-07-18 05:59] LABS: HEMATOCRIT 32.2 % (42.0-52.0); HEMOGLOBIN 10.6 G/DL (14.2-18.0); MEAN CORPUSCULAR VOLUME 102 FL (80-99); PLATELET COUNT 89 K/UL (150-450); RED BLOOD COUNT 3.17 M/UL (4.70-6.10); RED CELL DISTRIBUTION WIDTH 15.2 % (11.6-14.8); WHITE BLOOD COUNT 7.7 K/UL (4.8-10.8)
[2019-07-18] MEDS: Heparin 5000 units/ml inj SUBQ SCH ×3 (06:00→22:00)
--- NOTE | 2019-07-18 06:00 | NUR ---
NURSE NOTES: asleep restless at intreval
--- NOTE | 2019-07-18 07:20 | NUR ---
NURSE NOTES: Received report from JOCE Soto. Patient is moving all extremities. Unable to follow commands. ETT 8/24cm. AC 14, VT 600, Peep 5 and FiO2 30%.. NPO status. OGT intact and connected to suction canister with yellow green color drainage. Right Hand 22G IV intact and running with D5NS 50ml/hr. Left upper AV shunt, positive bruits and positive thrill. Kept dry, clean and comfortable. Will continue plan of care.
--- NOTE | 2019-07-18 07:52 | NUR ---
P.T Note: late entry 07/17/19 1030 P.T evaluation on hold. Pt currently on ventilator. P.T evaluation/tx not appropriate at this time. Will need new order when/as appropriate. Conferred with RN.
[2019-07-18] MEDS: D5 1/2NS 1,000 ML IV SCH (08:35)
[2019-07-18] MEDS: Pantoprazole Inj IVP SCH ×2 (08:35→21:02)
--- NOTE | 2019-07-18 08:47 | NUR ---
NURSE NOTES: Patient is restlessness and trying to reach ETT, unable to calm down. Started bilateral soft wrist bands restraints.
[2019-07-18 09:02] LABS: ANION GAP 16 mmol/L (5-15); BLOOD UREA NITROGEN 72 mg/dL (7-18); CARBON DIOXIDE 26 MMOL/L (21-32); CHLORIDE 106 MMOL/L (98-107); CREATININE 12.4 MG/DL (0.55-1.30); POTASSIUM 4.1 MMOL/L (3.5-5.1); SODIUM 148 MMOL/L (136-145)
[2019-07-18 09:12] LABS: ALANINE AMINOTRANSFERASE 11 U/L (12-78); ALBUMIN/GLOBULIN RATIO 0.6 (1.0-2.7); ALKALINE PHOSPHATASE 109 U/L (46-116); ASPARTATE AMINO TRANSFERASE 15 U/L (15-37); PHOSPHORUS 3.6 MG/DL (2.5-4.9)
--- NOTE | 2019-07-18 10:12 | NUR ---
NURSE NOTES: Patient is still trying to reach ETT and move around on the bed. Asked patient to be calm down and relax. Explained necessity of restraints. Patient nods his head. Will continue to monitor closely.
--- NOTE | 2019-07-18 10:20 | NUR ---
NURSE NOTES: Dr. Galloway is at the bedside and found ETT pulled out. Called RT and extubated and put non-rebreather mask. O2 Sat 100% on the monitor. DC restraints. Kept dry and comfortable. Will continue plan of care.
--- NOTE | 2019-07-18 10:36 | NUR ---
RESPIRATORY NOTE: Pt self extubated and was placed on Non rebreather. Dr Rosales ordered ABG in 30 min. Will continue to monitor.
--- NOTE | 2019-07-18 11:14 | NUR ---
NURSE NOTES: Seen by Dr. Soto and assessed patient. Will follow up with ABG.
--- NOTE | 2019-07-18 11:18 | Pulmonolgy Critical Care Note ---
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 Discussed with: nurses, consultants, piano case 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 quantitative - Objective Last 24 Hour Vital Signs Date Time Temp Pulse Resp B/P (MAP) Pulse Ox O2 Delivery O2 Flow Rate FiO2 07/18/19 10:33 Non-Rebreather 15.0 100 07/18/19 09:15 98 14 30 07/18/19 09:00 101 14 142/66 (91) 100 07/18/19 08:00 30 07/18/19 08:00 97.9 115 23 187/97 (127) 100 07/18/19 08:00 Mechanical Ventilator 07/18/19 07:31 114 19 30 07/18/19 07:00 102 14 123/45 (71) 100 07/18/19 06:30 112 25 07/18/19 06:00 108 21 189/112 (137) 100 07/18/19 05:04 101 16 30 07/18/19 05:00 106 21 148/99 (115) 100 07/18/19 04:00 109 07/18/19 04:00 Mechanical Ventilator 07/18/19 04:00 30 07/18/19 04:00 98.8 100 14 120/63 (82) 100 07/18/19 03:00 99 14 154/61 (92) 100 07/18/19 02:41 106 20 30 07/18/19 02:00 102 14 112/86 (95) 100 07/18/19 01:00 102 14 158/86 (110) 100 07/18/19 00:48 94 14 30 07/18/19 00:00 109 07/18/19 00:00 98.3 107 16 128/53 (78) 100 07/18/19 00:00 30 07/18/19 00:00 Mechanical Ventilator 07/17/19 23:00 106 19 151/95 (113) 100 07/17/19 22:32 99 15 30 07/17/19 22:00 99 14 124/65 (84) 100 07/17/19 21:00 104 15 173/111 (131) 100 07/17/19 20:50 106 18 30 07/17/19 20:00 102 07/17/19 20:00 40 07/17/19 20:00 98.6 100 14 129/71 (90) 100 07/17/19 20:00 Mechanical Ventilator 07/17/19 19:00 101 14 124/67 (86) 100 07/17/19 18:54 103 17 30 07/17/19 18:00 102 14 106/61 (76) 100 07/17/19 17:02 108 16 30 07/17/19 17:00 104 19 153/90 (111) 100 07/17/19 16:00 102 07/17/19 16:00 40 07/17/19 16:00 Mechanical Ventilator 07/17/19 16:00 98.8 104 14 110/71 (84) 100 07/17/19 15:25 102 18 30 07/17/19 15:00 102 14 121/65 (83) 100 07/17/19 14:07 106 18 100 07/17/19 14:00 108 14 84/60 (68) 100 07/17/19 13:00 114 18 157/79 (105) 100 07/17/19 12:54 164/78 07/17/19 12:45 40 07/17/19 12:30 102 21 40 07/17/19 12:00 98.8 105 14 99/60 (73) 100 07/17/19 12:00 103 07/17/19 12:00 Mechanical Ventilator 07/17/19 12:00 40 Status: somnolent Condition: critical HEENT: atraumatic Neck: full ROM Lungs: rales, rhonchi Heart: HR/BP stable Abdomen: soft Extremities: no C/C/E Critical Care - Subjective ICU Day: 2 Intubation Day: self extubated Condition: critical EKG Rhythm: Sinus Rhythm FI02: 100 Vent Support Breath Rate: 14 Vent Support Mode: AC Vent Tidal Volume: 600 Sputum Amount: None PEEP: 5.0 PIP: 31 I&O: Intake and Output 07/17/19 07/18/19 19:00 07:00 Intake Total 675 ml 600 ml Output Total 300 ml 500 ml Balance 375 ml 100 ml Intake IV Total 675 ml 600 ml Output Urine Total 0 ml 0 ml Gastric Drainage Total 300 ml 500 ml CXR: Bilateral pleural effusion and mild interstitial congestion and hazy parenchymal opacity present. ET-Tube: 8.0 ET Position: 24 Labs: Laboratory Tests Test 07/17/19 14:10 07/18/19 03:46 07/18/19 08:10 07/18/19 10:50 Troponin I 0.220 ng/mL (0.000-0.056) 0.153 ng/mL (0.000-0.056) White Blood Count 7.7 K/UL (4.8-10.8) Red Blood Count 3.17 M/UL (4.70-6.10) L Hemoglobin 10.6 G/DL (14.2-18.0) L Hematocrit 32.2 % (42.0-52.0) L Mean Corpuscular Volume 102 FL (80-99) H Mean Corpuscular Hemoglobin 33.3 PG (27.0-31.0) H Mean Corpuscular Hemoglobin Concent 32.8 G/DL (32.0-36.0) Red Cell Distribution Width 15.2 % (11.6-14.8) H Platelet Count 89 K/UL (150-450) L Mean Platelet Volume 9.9 FL (6.5-10.1) Neutrophils (%) (Auto) % (45.0-75.0) Lymphocytes (%) (Auto) % (20.0-45.0) Monocytes (%) (Auto) % (1.0-10.0) Eosinophils (%) (Auto) % (0.0-3.0) Basophils (%) (Auto) % (0.0-2.0) Differential Total Cells Counted 100 Neutrophils % (Manual) 90 % (45-75) H Lymphocytes % (Manual) 6 % (20-45) L Monocytes % (Manual) 4 % (1-10) Eosinophils % (Manual) 0 % (0-3) Basophils % (Manual) 0 % (0-2) Band Neutrophils 0 % (0-8) Platelet Estimate Decreased L Platelet Morphology Normal Anisocytosis 1+ Macrocytosis 1+ Lactic Acid Level 2.00 mmol/L (0.4-2.0) Sodium Level 148 MMOL/L (136-145) H Potassium Level 4.1 MMOL/L (3.5-5.1) Chloride Level 106 MMOL/L (98-107) Carbon Dioxide Level 26 MMOL/L (21-32) Anion Gap 16 mmol/L (5-15) H Blood Urea Nitrogen 72 mg/dL (7-18) H Creatinine 12.4 MG/DL (0.55-1.30) H Estimat Glomerular Filtration Rate 5.2 mL/min (>60) Glucose Level 222 MG/DL (74-106) H Uric Acid 6.7 MG/DL (2.6-7.2) Calcium Level 9.0 MG/DL (8.5-10.1) Phosphorus Level 3.6 MG/DL (2.5-4.9) Magnesium Level 2.2 MG/DL (1.8-2.4) Total Bilirubin 1.0 MG/DL (0.2-1.0) Aspartate Amino Transf (AST/SGOT) 15 U/L (15-37) Alanine Aminotransferase (ALT/SGPT) 11 U/L (12-78) L Alkaline Phosphatase 109 U/L (46-116) C-Reactive Protein, Quantitative 5.3 mg/dL (0.00-0.90) H Pro-B-Type Natriuretic Peptide 68553 pg/mL (0-125) H Total Protein 7.7 G/DL (6.4-8.2) Albumin 3.0 G/DL (3.4-5.0) L Globulin 4.7 g/dL Albumin/Globulin Ratio 0.6 (1.0-2.7) L Arterial Blood pH 7.368 (7.350-7.450) Arterial Blood Partial Pressure CO2 48.5 mmHg (35.0-45.0) H Arterial Blood Partial Pressure O2 230.8 mmHg (75.0-100.0) H Arterial Blood HCO3 27.3 mmol/L (22.0-26.0) H Arterial Blood Oxygen Saturation 99.0 % (95-100) Arterial Blood Base Excess 1.4 (-2-2) Landon Test Positive Juan Carlos Soto MD Jul 18, 2019 11:18
--- NOTE | 2019-07-18 11:19 | Infectious Diseases Prog Note ---
Assessment/Plan Assessment/Plan Assessment: Probable aspiration PNA -07/17 CXR: Bilateral pleural effusion and mild interstitial congestion and hazy parenchymal opacity present. cardiac arrest asystole during surgical procedure -07/16 CXR: pulmonary edema Non healing scrotal wound; bx showed: ruptured epidermal inclusion cyst with associated abscess formation -07/16 sp attempted excision but procedure aborted due to cardiac arrest VDRF 07/16; extubated 07/18 Afebrile Mild leukocytosis, SP ESRD on HD via L arm AVF Dm2 HTN internal hemorrhoids Plan: -Cont PO Levaquin #2/5 to cover for probable aspiration PNA -07/16 SP Ancef x1 -f/u cx -Monitor CBC/CMP, temperatures -ICU care -aspiration precautions -wound care per surgical team -Sx, Neprho, pulm f/u Thank you for this consultation. Will continue to follow along with you. Discussed with RN Subjective Allergies: Coded Allergies: LISINOPRIL (Verified Allergy, Severe, Shortness of Breath, 07/02/19) THROAT SWELLS UP PENICILLINS (Verified Allergy, Severe, throat swelling, 07/17/19) tolerated Ancef x1 07/16/19 Uncoded Allergies: shellfish (Allergy, Severe, 02/06/19) shortness of breath, vomiting, throat swelling Subjective afebrile mild leukocytosis resolved extubated today, now on NRB mask Objective Vital Signs Last 24 Hour Vital Signs Date Time Temp Pulse Resp B/P (MAP) Pulse Ox O2 Delivery O2 Flow Rate FiO2 07/18/19 10:33 Non-Rebreather 15.0 100 07/18/19 09:15 98 14 30 07/18/19 09:00 101 14 142/66 (91) 100 07/18/19 08:00 30 07/18/19 08:00 97.9 115 23 187/97 (127) 100 07/18/19 08:00 Mechanical Ventilator 07/18/19 07:31 114 19 30 07/18/19 07:00 102 14 123/45 (71) 100 07/18/19 06:30 112 25 07/18/19 06:00 108 21 189/112 (137) 100 07/18/19 05:04 101 16 30 07/18/19 05:00 106 21 148/99 (115) 100 07/18/19 04:00 109 07/18/19 04:00 Mechanical Ventilator 07/18/19 04:00 30 07/18/19 04:00 98.8 100 14 120/63 (82) 100 07/18/19 03:00 99 14 154/61 (92) 100 07/18/19 02:41 106 20 30 07/18/19 02:00 102 14 112/86 (95) 100 07/18/19 01:00 102 14 158/86 (110) 100 07/18/19 00:48 94 14 30 07/18/19 00:00 109 07/18/19 00:00 98.3 107 16 128/53 (78) 100 07/18/19 00:00 30 07/18/19 00:00 Mechanical Ventilator 07/17/19 23:00 106 19 151/95 (113) 100 07/17/19 22:32 99 15 30 07/17/19 22:00 99 14 124/65 (84) 100 07/17/19 21:00 104 15 173/111 (131) 100 07/17/19 20:50 106 18 30 07/17/19 20:00 102 07/17/19 20:00 40 07/17/19 20:00 98.6 100 14 129/71 (90) 100 07/17/19 20:00 Mechanical Ventilator 07/17/19 19:00 101 14 124/67 (86) 100 07/17/19 18:54 103 17 30 07/17/19 18:00 102 14 106/61 (76) 100 07/17/19 17:02 108 16 30 07/17/19 17:00 104 19 153/90 (111) 100 07/17/19 16:00 102 07/17/19 16:00 40 07/17/19 16:00 Mechanical Ventilator 07/17/19 16:00 98.8 104 14 110/71 (84) 100 07/17/19 15:25 102 18 30 07/17/19 15:00 102 14 121/65 (83) 100 07/17/19 14:07 106 18 100 07/17/19 14:00 108 14 84/60 (68) 100 07/17/19 13:00 114 18 157/79 (105) 100 07/17/19 12:54 164/78 07/17/19 12:45 40 07/17/19 12:30 102 21 40 07/17/19 12:00 98.8 105 14 99/60 (73) 100 07/17/19 12:00 103 07/17/19 12:00 Mechanical Ventilator 07/17/19 12:00 40 Height (Feet): 5 Height (Inches): 5.50 Weight (Pounds): 170 Objective General Appearance: no apparent distress Head: normocephalic EENT: ETT in place Neck: supple Respiratory: normal breath sounds, no respiratory distress, other - intubated Cardiovascular: normal rate Gastrointestinal: normal inspection, non tender, soft, normal bowel sounds, non -distended Neurologic: oriented x3, normal inspection Skin: normal inspection, normal color, no rash, warm/dry, palpation normal, well hydrated scrotal wound packed Laboratory Tests Test 07/17/19 14:10 07/18/19 03:46 07/18/19 08:10 07/18/19 10:50 Troponin I 0.220 ng/mL (0.000-0.056) 0.153 ng/mL (0.000-0.056) White Blood Count 7.7 K/UL (4.8-10.8) Red Blood Count 3.17 M/UL (4.70-6.10) L Hemoglobin 10.6 G/DL (14.2-18.0) L Hematocrit 32.2 % (42.0-52.0) L Mean Corpuscular Volume 102 FL (80-99) H Mean Corpuscular Hemoglobin 33.3 PG (27.0-31.0) H Mean Corpuscular Hemoglobin Concent 32.8 G/DL (32.0-36.0) Red Cell Distribution Width 15.2 % (11.6-14.8) H Platelet Count 89 K/UL (150-450) L Mean Platelet Volume 9.9 FL (6.5-10.1) Neutrophils (%) (Auto) % (45.0-75.0) Lymphocytes (%) (Auto) % (20.0-45.0) Monocytes (%) (Auto) % (1.0-10.0) Eosinophils (%) (Auto) % (0.0-3.0) Basophils (%) (Auto) % (0.0-2.0) Differential Total Cells Counted 100 Neutrophils % (Manual) 90 % (45-75) H Lymphocytes % (Manual) 6 % (20-45) L Monocytes % (Manual) 4 % (1-10) Eosinophils % (Manual) 0 % (0-3) Basophils % (Manual) 0 % (0-2) Band Neutrophils 0 % (0-8) Platelet Estimate Decreased L Platelet Morphology Normal Anisocytosis 1+ Macrocytosis 1+ Lactic Acid Level 2.00 mmol/L (0.4-2.0) Sodium Level 148 MMOL/L (136-145) H Potassium Level 4.1 MMOL/L (3.5-5.1) Chloride Level 106 MMOL/L (98-107) Carbon Dioxide Level 26 MMOL/L (21-32) Anion Gap 16 mmol/L (5-15) H Blood Urea Nitrogen 72 mg/dL (7-18) H Creatinine 12.4 MG/DL (0.55-1.30) H Estimat Glomerular Filtration Rate 5.2 mL/min (>60) Glucose Level 222 MG/DL (74-106) H Uric Acid 6.7 MG/DL (2.6-7.2) Calcium Level 9.0 MG/DL (8.5-10.1) Phosphorus Level 3.6 MG/DL (2.5-4.9) Magnesium Level 2.2 MG/DL (1.8-2.4) Total Bilirubin 1.0 MG/DL (0.2-1.0) Aspartate Amino Transf (AST/SGOT) 15 U/L (15-37) Alanine Aminotransferase (ALT/SGPT) 11 U/L (12-78) L Alkaline Phosphatase 109 U/L (46-116) C-Reactive Protein, Quantitative 5.3 mg/dL (0.00-0.90) H Pro-B-Type Natriuretic Peptide 57580 pg/mL (0-125) H Total Protein 7.7 G/DL (6.4-8.2) Albumin 3.0 G/DL (3.4-5.0) L Globulin 4.7 g/dL Albumin/Globulin Ratio 0.6 (1.0-2.7) L Arterial Blood pH Pending Arterial Blood Partial Pressure CO2 Pending Arterial Blood Partial Pressure O2 Pending Arterial Blood HCO3 Pending Arterial Blood Oxygen Saturation Pending Arterial Blood Base Excess Pending Landon Test Pending Current Medications Medications (Trade) Dose Ordered Sig/David Route PRN Reason Start Time Stop Time Status Last Admin Dose Admin Acetaminophen (Tylenol) 650 mg Q4H PRN ORAL Fever 07/16/19 14:00 08/15/19 13:59 Acetaminophen (Tylenol) 650 mg Q4H PRN RECTAL FEVER 07/16/19 13:45 08/15/19 13:44 Albuterol/ Ipratropium (Albuterol/ Ipratropium) 3 ml Q4H PRN HHN Shortness of Breath 07/16/19 14:00 07/21/19 13:59 Dextrose (Dextrose 50%) 25 ml Q30M PRN IV Hypoglycemia 07/16/19 14:00 08/15/19 13:59 Dextrose (Dextrose 50%) 50 ml Q30M PRN IV Hypoglycemia 07/16/19 14:00 08/15/19 13:59 Dextrose/Sodium Chloride 1,000 ml @ 50 mls/hr Q20H IV 07/17/19 11:30 08/16/19 11:29 07/18/19 08:35 Heparin Sodium (Porcine) (Heparin 5000 units/ml) 5,000 units EVERY 8 HOURS SUBQ 07/16/19 14:00 08/15/19 13:59 Hydralazine HCl (Apresoline) 10 mg Q4H PRN IV bp over 160 syst 07/16/19 14:00 08/15/19 13:59 Levofloxacin 100 ml @ 100 mls/hr Q48H IVPB 07/17/19 15:00 07/24/19 14:59 07/17/19 15:15 Lorazepam (Ativan 2mg/ml 1ml) 2 mg Q2H PRN IV agitation 07/16/19 14:00 07/23/19 13:59 07/17/19 07:07 Metoclopramide HCl (Reglan) 10 mg Q6H PRN IVP Nausea & Vomiting 07/16/19 13:45 08/15/19 13:44 07/17/19 12:42 Morphine Sulfate (Morphine Sulfate) 4 mg Q4H PRN IVP Severe Pain (Pain Scale 7-10) 07/16/19 14:00 07/23/19 13:59 Nitroglycerin (Ntg) 1 patch Q24H TDERMAL 07/17/19 12:00 08/16/19 11:59 07/17/19 12:54 Pantoprazole (Protonix) 40 mg EVERY 12 HOURS IVP 07/16/19 21:00 08/15/19 20:59 07/18/19 08:35 Sennosides (Senokot) 8.6 mg BIDPRN PRN ORAL Constipation 07/16/19 13:45 08/15/19 13:44 Lee Ann Hyatt M.D. Jul 18, 2019 11:19
[2019-07-18] MEDS ORDERED: Carvedilol 6.25mg Tab ORAL SCH ×2 (11:28→21:00)
--- NOTE | 2019-07-18 11:28 | Nephrology Progress Note ---
Assessment/Plan Problem List: (1) ESRD (end stage renal disease) (2) Acute respiratory failure (3) Cardiac arrest (4) Diabetes mellitus (5) Cardiomyopathy Assessment interoperative cardiac arrest Cardiomyopathy and Low ejfx ESRD- high K BP low at this time s/p Asystole in OR Plan self extubated 07/18 resume coreg support BP Pulm support HD 07/16 next 07/18 2D echo noted per orders Subjective ROS Limited/Unobtainable: No Constitutional: Reports: malaise Objective Objective Last 24 Hour Vital Signs Date Time Temp Pulse Resp B/P (MAP) Pulse Ox O2 Delivery O2 Flow Rate FiO2 07/18/19 10:33 Non-Rebreather 15.0 100 07/18/19 09:15 98 14 30 07/18/19 09:00 101 14 142/66 (91) 100 07/18/19 08:00 30 07/18/19 08:00 97.9 115 23 187/97 (127) 100 07/18/19 08:00 Mechanical Ventilator 07/18/19 07:31 114 19 30 07/18/19 07:00 102 14 123/45 (71) 100 07/18/19 06:30 112 25 07/18/19 06:00 108 21 189/112 (137) 100 07/18/19 05:04 101 16 30 07/18/19 05:00 106 21 148/99 (115) 100 07/18/19 04:00 109 07/18/19 04:00 Mechanical Ventilator 07/18/19 04:00 30 07/18/19 04:00 98.8 100 14 120/63 (82) 100 07/18/19 03:00 99 14 154/61 (92) 100 07/18/19 02:41 106 20 30 07/18/19 02:00 102 14 112/86 (95) 100 07/18/19 01:00 102 14 158/86 (110) 100 07/18/19 00:48 94 14 30 07/18/19 00:00 109 07/18/19 00:00 98.3 107 16 128/53 (78) 100 07/18/19 00:00 30 07/18/19 00:00 Mechanical Ventilator 07/17/19 23:00 106 19 151/95 (113) 100 07/17/19 22:32 99 15 30 07/17/19 22:00 99 14 124/65 (84) 100 07/17/19 21:00 104 15 173/111 (131) 100 07/17/19 20:50 106 18 30 07/17/19 20:00 102 07/17/19 20:00 40 07/17/19 20:00 98.6 100 14 129/71 (90) 100 07/17/19 20:00 Mechanical Ventilator 07/17/19 19:00 101 14 124/67 (86) 100 07/17/19 18:54 103 17 30 07/17/19 18:00 102 14 106/61 (76) 100 07/17/19 17:02 108 16 30 07/17/19 17:00 104 19 153/90 (111) 100 07/17/19 16:00 102 07/17/19 16:00 40 07/17/19 16:00 Mechanical Ventilator 07/17/19 16:00 98.8 104 14 110/71 (84) 100 07/17/19 15:25 102 18 30 07/17/19 15:00 102 14 121/65 (83) 100 07/17/19 14:07 106 18 100 07/17/19 14:00 108 14 84/60 (68) 100 07/17/19 13:00 114 18 157/79 (105) 100 07/17/19 12:54 164/78 07/17/19 12:45 40 07/17/19 12:30 102 21 40 07/17/19 12:00 98.8 105 14 99/60 (73) 100 07/17/19 12:00 103 07/17/19 12:00 Mechanical Ventilator 07/17/19 12:00 40 Intake and Output 07/17/19 07/18/19 19:00 07:00 Intake Total 675 ml 600 ml Output Total 300 ml 500 ml Balance 375 ml 100 ml Intake IV Total 675 ml 600 ml Output Urine Total 0 ml 0 ml Gastric Drainage Total 300 ml 500 ml Laboratory Tests 07/17/19 14:10: Troponin I 0.220H 07/18/19 03:46: Troponin I 0.153H, White Blood Count 7.7, Red Blood Count 3.17L, Hemoglobin 10.6L, Hematocrit 32.2L, Mean Corpuscular Volume 102H, Mean Corpuscular Hemoglobin 33.3H, Mean Corpuscular Hemoglobin Concent 32.8, Red Cell Distribution Width 15.2H, Platelet Count 89L, Mean Platelet Volume 9.9, Neutrophils (%) (Auto) , Lymphocytes (%) (Auto) , Monocytes (%) (Auto) , Eosinophils (%) (Auto) , Basophils (%) (Auto) , Differential Total Cells Counted 100, Neutrophils % (Manual) 90H, Lymphocytes % (Manual) 6L, Monocytes % (Manual) 4, Eosinophils % (Manual) 0, Basophils % (Manual) 0, Band Neutrophils 0 , Platelet Estimate DecreasedL, Platelet Morphology Normal, Anisocytosis 1+, Macrocytosis 1+, Lactic Acid Level 2.00 07/18/19 08:10: Sodium Level 148H, Potassium Level 4.1, Chloride Level 106, Carbon Dioxide Level 26, Anion Gap 16H, Blood Urea Nitrogen 72H, Creatinine 12.4H, Estimat Glomerular Filtration Rate 5.2, Glucose Level 222H, Uric Acid 6.7, Calcium Level 9.0, Phosphorus Level 3.6, Magnesium Level 2.2, Total Bilirubin 1.0, Aspartate Amino Transf (AST/SGOT) 15, Alanine Aminotransferase (ALT/SGPT) 11L, Alkaline Phosphatase 109, C-Reactive Protein, Quantitative 5.3H, Pro-B-Type Natriuretic Peptide 73611G, Total Protein 7.7, Albumin 3.0L, Globulin 4.7, Albumin/Globulin Ratio 0.6L 07/18/19 10:50: Arterial Blood pH 7.368, Arterial Blood Partial Pressure CO2 48.5H, Arterial Blood Partial Pressure O2 230.8H, Arterial Blood HCO3 27.3H, Arterial Blood Oxygen Saturation 99.0, Arterial Blood Base Excess 1.4, Landon Test Positive Height (Feet): 5 Height (Inches): 5.50 Weight (Pounds): 170 General Appearance: mild distress EENT: other - self extubated Cardiovascular: tachycardia Respiratory/Chest: decreased breath sounds Abdomen: distended Daniel Delgadillo MD Jul 18, 2019 11:28
--- NOTE | 2019-07-18 11:30 | NUR ---
NURSE NOTES: Changed non-breather mask to Nasal cannula 4L/min. Will continue to plan of care.
[2019-07-18] MEDS: Nitroglycerin Patch 0.4mg TDERMAL SCH (11:31)
--- NOTE | 2019-07-18 11:50 | General Progress Note ---
Assessment/Plan Status: unchanged Assessment/Plan: Assessment/Plan Problems: (1) Scrotal lesion ICD Codes: N50.9 - Disorder of male genital organs, unspecified SNOMED: 90943339 (2) Cardiac arrest ICD Codes: I46.9 - Cardiac arrest, cause unspecified SNOMED: 872742122 (3) Anemia ICD Codes: D64.9 - Anemia, unspecified SNOMED: 871246560 (4) Constipation ICD Codes: K59.00 - Constipation, unspecified Assessment/Plan Patient not stable for any GI procedures at this time had multiple eps of emesis last night maintain NPO + IVF swallow eval follow up cardiology recs Anemia work-up Occult blood stool to rule out any GI bleed prn transfusions ppi will follow Subjective ROS Limited/Unobtainable: No Allergies: Coded Allergies: LISINOPRIL (Verified Allergy, Severe, Shortness of Breath, 07/02/19) THROAT SWELLS UP PENICILLINS (Verified Allergy, Severe, throat swelling, 07/17/19) tolerated Ancef x1 07/16/19 Uncoded Allergies: shellfish (Allergy, Severe, 02/06/19) shortness of breath, vomiting, throat swelling Objective Last 24 Hour Vital Signs Date Time Temp Pulse Resp B/P (MAP) Pulse Ox O2 Delivery O2 Flow Rate FiO2 07/18/19 11:31 187/96 07/18/19 10:33 Non-Rebreather 15.0 100 07/18/19 09:15 98 14 30 07/18/19 09:00 101 14 142/66 (91) 100 07/18/19 08:00 30 07/18/19 08:00 97.9 115 23 187/97 (127) 100 07/18/19 08:00 Mechanical Ventilator 07/18/19 07:31 114 19 30 07/18/19 07:00 102 14 123/45 (71) 100 07/18/19 06:30 112 25 07/18/19 06:00 108 21 189/112 (137) 100 07/18/19 05:04 101 16 30 07/18/19 05:00 106 21 148/99 (115) 100 07/18/19 04:00 109 07/18/19 04:00 Mechanical Ventilator 07/18/19 04:00 30 07/18/19 04:00 98.8 100 14 120/63 (82) 100 07/18/19 03:00 99 14 154/61 (92) 100 07/18/19 02:41 106 20 30 07/18/19 02:00 102 14 112/86 (95) 100 07/18/19 01:00 102 14 158/86 (110) 100 07/18/19 00:48 94 14 30 07/18/19 00:00 109 07/18/19 00:00 98.3 107 16 128/53 (78) 100 07/18/19 00:00 30 07/18/19 00:00 Mechanical Ventilator 07/17/19 23:00 106 19 151/95 (113) 100 07/17/19 22:32 99 15 30 07/17/19 22:00 99 14 124/65 (84) 100 07/17/19 21:00 104 15 173/111 (131) 100 07/17/19 20:50 106 18 30 07/17/19 20:00 102 07/17/19 20:00 40 07/17/19 20:00 98.6 100 14 129/71 (90) 100 07/17/19 20:00 Mechanical Ventilator 07/17/19 19:00 101 14 124/67 (86) 100 07/17/19 18:54 103 17 30 07/17/19 18:00 102 14 106/61 (76) 100 07/17/19 17:02 108 16 30 07/17/19 17:00 104 19 153/90 (111) 100 07/17/19 16:00 102 07/17/19 16:00 40 07/17/19 16:00 Mechanical Ventilator 07/17/19 16:00 98.8 104 14 110/71 (84) 100 07/17/19 15:25 102 18 30 07/17/19 15:00 102 14 121/65 (83) 100 07/17/19 14:07 106 18 100 07/17/19 14:00 108 14 84/60 (68) 100 07/17/19 13:00 114 18 157/79 (105) 100 07/17/19 12:54 164/78 07/17/19 12:45 40 07/17/19 12:30 102 21 40 07/17/19 12:00 98.8 105 14 99/60 (73) 100 07/17/19 12:00 103 07/17/19 12:00 Mechanical Ventilator 07/17/19 12:00 40 Intake and Output 07/17/19 07/18/19 18:59 06:59 Intake Total 675 ml 600 ml Output Total 250 ml 550 ml Balance 425 ml 50 ml Intake IV Total 675 ml 600 ml Output Urine Total 0 ml 0 ml Gastric Drainage Total 250 ml 550 ml Laboratory Tests 07/17/19 14:10: Troponin I 0.220H 07/18/19 03:46: Troponin I 0.153H, White Blood Count 7.7, Red Blood Count 3.17L, Hemoglobin 10.6L, Hematocrit 32.2L, Mean Corpuscular Volume 102H, Mean Corpuscular Hemoglobin 33.3H, Mean Corpuscular Hemoglobin Concent 32.8, Red Cell Distribution Width 15.2H, Platelet Count 89L, Mean Platelet Volume 9.9, Neutrophils (%) (Auto) , Lymphocytes (%) (Auto) , Monocytes (%) (Auto) , Eosinophils (%) (Auto) , Basophils (%) (Auto) , Differential Total Cells Counted 100, Neutrophils % (Manual) 90H, Lymphocytes % (Manual) 6L, Monocytes % (Manual) 4, Eosinophils % (Manual) 0, Basophils % (Manual) 0, Band Neutrophils 0 , Platelet Estimate DecreasedL, Platelet Morphology Normal, Anisocytosis 1+, Macrocytosis 1+, Lactic Acid Level 2.00 07/18/19 08:10: Sodium Level 148H, Potassium Level 4.1, Chloride Level 106, Carbon Dioxide Level 26, Anion Gap 16H, Blood Urea Nitrogen 72H, Creatinine 12.4H, Estimat Glomerular Filtration Rate 5.2, Glucose Level 222H, Uric Acid 6.7, Calcium Level 9.0, Phosphorus Level 3.6, Magnesium Level 2.2, Total Bilirubin 1.0, Aspartate Amino Transf (AST/SGOT) 15, Alanine Aminotransferase (ALT/SGPT) 11L, Alkaline Phosphatase 109, C-Reactive Protein, Quantitative 5.3H, Pro-B-Type Natriuretic Peptide 48071W, Total Protein 7.7, Albumin 3.0L, Globulin 4.7, Albumin/Globulin Ratio 0.6L 07/18/19 10:50: Arterial Blood pH 7.368, Arterial Blood Partial Pressure CO2 48.5H, Arterial Blood Partial Pressure O2 230.8H, Arterial Blood HCO3 27.3H, Arterial Blood Oxygen Saturation 99.0, Arterial Blood Base Excess 1.4, Landon Test Positive Height (Feet): 5 Height (Inches): 5.50 Weight (Pounds): 170 General Appearance: lethargic EENT: PERRL/EOMI Neck: supple Cardiovascular: normal rate Respiratory/Chest: decreased breath sounds Abdomen: normal bowel sounds, non tender, soft Extremities: non-tender Richy Delarosa MD Jul 18, 2019 11:50
--- NOTE | 2019-07-18 11:57 | Internal Med Progress Note ---
Subjective Date of Service: Jul 18, 2019 Physician Name Michael Perez Attending Physician Zuhair Singleton MD Current Medications Medications (Trade) Dose Ordered Sig/David Route PRN Reason Start Time Stop Time Status Last Admin Dose Admin Acetaminophen (Tylenol) 650 mg Q4H PRN ORAL Fever 07/16/19 14:00 08/15/19 13:59 Acetaminophen (Tylenol) 650 mg Q4H PRN RECTAL FEVER 07/16/19 13:45 08/15/19 13:44 Albuterol/ Ipratropium (Albuterol/ Ipratropium) 3 ml Q4H PRN HHN Shortness of Breath 07/16/19 14:00 07/21/19 13:59 Carvedilol (Coreg) 6.25 mg EVERY 12 HOURS ORAL 07/18/19 21:00 08/17/19 20:59 Carvedilol (Coreg) 6.25 mg ONCE ORAL 07/18/19 11:28 07/18/19 13:00 Dextrose (Dextrose 50%) 25 ml Q30M PRN IV Hypoglycemia 07/16/19 14:00 08/15/19 13:59 Dextrose (Dextrose 50%) 50 ml Q30M PRN IV Hypoglycemia 07/16/19 14:00 08/15/19 13:59 Heparin Sodium (Porcine) (Heparin 5000 units/ml) 5,000 units EVERY 8 HOURS SUBQ 07/16/19 14:00 08/15/19 13:59 Hydralazine HCl (Apresoline) 10 mg Q4H PRN IV bp over 160 syst 07/16/19 14:00 08/15/19 13:59 Levofloxacin 100 ml @ 100 mls/hr Q48H IVPB 07/17/19 15:00 07/24/19 14:59 07/17/19 15:15 Lorazepam (Ativan 2mg/ml 1ml) 2 mg Q2H PRN IV agitation 07/16/19 14:00 07/23/19 13:59 07/17/19 07:07 Metoclopramide HCl (Reglan) 10 mg Q6H PRN IVP Nausea & Vomiting 07/16/19 13:45 08/15/19 13:44 07/17/19 12:42 Morphine Sulfate (Morphine Sulfate) 4 mg Q4H PRN IVP Severe Pain (Pain Scale 7-10) 07/16/19 14:00 07/23/19 13:59 Nitroglycerin (Ntg) 1 patch Q24H TDERMAL 07/17/19 12:00 08/16/19 11:59 07/18/19 11:31 Pantoprazole (Protonix) 40 mg EVERY 12 HOURS IVP 07/16/19 21:00 08/15/19 20:59 07/18/19 08:35 Sennosides (Senokot) 8.6 mg BIDPRN PRN ORAL Constipation 07/16/19 13:45 08/15/19 13:44 Allergies: Coded Allergies: LISINOPRIL (Verified Allergy, Severe, Shortness of Breath, 07/02/19) THROAT SWELLS UP PENICILLINS (Verified Allergy, Severe, throat swelling, 07/17/19) tolerated Ancef x1 07/16/19 Uncoded Allergies: shellfish (Allergy, Severe, 02/06/19) shortness of breath, vomiting, throat swelling ROS Limited/Unobtainable: Yes Subjective 49 YO M admitted for scrotal fistulotomy. S/P cardiac arrest. Self extubated . Cover for Int med-Dr Singleton. ICU Objective Last Vital Signs Date Time Temp Pulse Resp B/P (MAP) Pulse Ox O2 Delivery O2 Flow Rate FiO2 07/18/19 11:31 187/96 07/18/19 10:33 Non-Rebreather 15.0 100 07/18/19 09:15 98 14 07/18/19 09:00 100 07/18/19 08:00 97.9 Laboratory Tests Test 07/17/19 14:10 07/18/19 03:46 07/18/19 08:10 07/18/19 10:50 Troponin I 0.220 ng/mL (0.000-0.056) 0.153 ng/mL (0.000-0.056) White Blood Count 7.7 K/UL (4.8-10.8) Red Blood Count 3.17 M/UL (4.70-6.10) L Hemoglobin 10.6 G/DL (14.2-18.0) L Hematocrit 32.2 % (42.0-52.0) L Mean Corpuscular Volume 102 FL (80-99) H Mean Corpuscular Hemoglobin 33.3 PG (27.0-31.0) H Mean Corpuscular Hemoglobin Concent 32.8 G/DL (32.0-36.0) Red Cell Distribution Width 15.2 % (11.6-14.8) H Platelet Count 89 K/UL (150-450) L Mean Platelet Volume 9.9 FL (6.5-10.1) Neutrophils (%) (Auto) % (45.0-75.0) Lymphocytes (%) (Auto) % (20.0-45.0) Monocytes (%) (Auto) % (1.0-10.0) Eosinophils (%) (Auto) % (0.0-3.0) Basophils (%) (Auto) % (0.0-2.0) Differential Total Cells Counted 100 Neutrophils % (Manual) 90 % (45-75) H Lymphocytes % (Manual) 6 % (20-45) L Monocytes % (Manual) 4 % (1-10) Eosinophils % (Manual) 0 % (0-3) Basophils % (Manual) 0 % (0-2) Band Neutrophils 0 % (0-8) Platelet Estimate Decreased L Platelet Morphology Normal Anisocytosis 1+ Macrocytosis 1+ Lactic Acid Level 2.00 mmol/L (0.4-2.0) Sodium Level 148 MMOL/L (136-145) H Potassium Level 4.1 MMOL/L (3.5-5.1) Chloride Level 106 MMOL/L (98-107) Carbon Dioxide Level 26 MMOL/L (21-32) Anion Gap 16 mmol/L (5-15) H Blood Urea Nitrogen 72 mg/dL (7-18) H Creatinine 12.4 MG/DL (0.55-1.30) H Estimat Glomerular Filtration Rate 5.2 mL/min (>60) Glucose Level 222 MG/DL (74-106) H Uric Acid 6.7 MG/DL (2.6-7.2) Calcium Level 9.0 MG/DL (8.5-10.1) Phosphorus Level 3.6 MG/DL (2.5-4.9) Magnesium Level 2.2 MG/DL (1.8-2.4) Total Bilirubin 1.0 MG/DL (0.2-1.0) Aspartate Amino Transf (AST/SGOT) 15 U/L (15-37) Alanine Aminotransferase (ALT/SGPT) 11 U/L (12-78) L Alkaline Phosphatase 109 U/L (46-116) C-Reactive Protein, Quantitative 5.3 mg/dL (0.00-0.90) H Pro-B-Type Natriuretic Peptide 86529 pg/mL (0-125) H Total Protein 7.7 G/DL (6.4-8.2) Albumin 3.0 G/DL (3.4-5.0) L Globulin 4.7 g/dL Albumin/Globulin Ratio 0.6 (1.0-2.7) L Arterial Blood pH 7.368 (7.350-7.450) Arterial Blood Partial Pressure CO2 48.5 mmHg (35.0-45.0) H Arterial Blood Partial Pressure O2 230.8 mmHg (75.0-100.0) H Arterial Blood HCO3 27.3 mmol/L (22.0-26.0) H Arterial Blood Oxygen Saturation 99.0 % (95-100) Arterial Blood Base Excess 1.4 (-2-2) Landon Test Positive Intake and Output 07/17/19 07/18/19 19:00 07:00 Intake Total 675 ml 600 ml Output Total 300 ml 500 ml Balance 375 ml 100 ml Intake IV Total 675 ml 600 ml Output Urine Total 0 ml 0 ml Gastric Drainage Total 300 ml 500 ml Objective PHYSICAL EXAMINATION: GENERAL: The patient is well-developed well-nourished male, intubated and sedated in the intensive care unit. CHEST: Diffuse coarse breath sounds bilaterally without wheezes CARDIOVASCULAR: Regular rhythm and rate. S1, S2 are normal without murmurs, rubs, or gallops. ABDOMEN: Soft, nontender, nondistended. Positive bowel sounds. No evidence of hepatosplenomegaly. Currently, no rebound or guarding noted. EXTREMITIES: Negative for clubbing, cyanosis, edema. NEUROLOGIC: Unable to assess. Assessment/Plan Assessment/Plan ASSESSMENT: This is a 49-year-old male. 1. Scrotal fistula. 2. Status post cardiac arrest. 3. Renal failure. 4. Hypertension. 5. Gout. 6. End stage renal disease on hemodialysis. TREATMENT: 1. Scrotal fistula. Surgery was aborted on 07/16/2019. Follow recommendations of Surgery, Dr. Galloway. 2. Status post cardiac arrest. The patient is S/P self-extubation in the intensive care unit. A Cardiology consultation has been obtained with Dr. Emmanuel Cortés. Follow recommendations of Cardiology. 3. End stage renal disease. A Nephrology consultation has been obtained with Dr. Daniel Delgadillo. Follow recommendations of Nephrology. 4. Hypertension. The patient is currently hypotensive in the intensive care unit. 5. Gout. Michael Perez MD Jul 18, 2019 11:57
--- NOTE | 2019-07-18 12:01 | NUR ---
NURSE NOTES: Titrate O2 to 2L/min via NC. Will continue to monitor.
--- NOTE | 2019-07-18 12:41 | NUR ---
VALUE STREAM COACHDRAFTER SEISMOGRAPH SI: RESP FAILURE ETT/VENT SUPPORT T. 97.9 HR 115 RR 14 B/P 187/97 AC 14 TV 600 FIO2 30% PEEP 5 AGAP 16 BNP [id number] IS: LEVAQUIN IV PROTONIX HEPARIN SUBC ICU STATUS
--- NOTE | 2019-07-18 13:32 | NUR ---
NURSE NOTES: Repositioned patient. Patient is tolerating well with O2 2L/min via NC. O2 sat 99% on the monitor.
--- NOTE | 2019-07-18 14:43 | NUR ---
[facility] NOTE WILDER attempted to call pt's [facility] [phone] to conduct psychosocial assessment. The call was not answered and SW left a vm for call back. This SW did not receive a call back. Signed: 07/18/19 at 1444 by NEDA HDZ <Co-Signature Required>
--- NOTE | 2019-07-18 14:55 | NUR ---
NURSE NOTES: Patient is desating 84% while N/C 2L/min is being off. Put on back O2 2L/min via NC. O2 Sat 99%-100% on the monitor. Will continue plan of care.
--- NOTE | 2019-07-18 15:05 | Surgery Progress Note ---
Surgery Progress Note Subjective Procedure Performed 1. excision of scrotal lesion - aborted Additional Comments ET tube out this AM. ? self extubated tube removed given supplementation doing well abg f/u Objective Last 24 Hour Vital Signs Date Time Temp Pulse Resp B/P (MAP) Pulse Ox O2 Delivery O2 Flow Rate FiO2 07/18/19 13:15 99 Nasal Cannula 2.0 28 07/18/19 13:00 121 26 171/90 (117) 100 07/18/19 12:00 Mechanical Ventilator 07/18/19 12:00 122 07/18/19 12:00 98.0 122 25 182/96 (124) 100 07/18/19 12:00 2.0 07/18/19 11:31 187/96 07/18/19 11:30 4.0 07/18/19 11:28 120 182/114 07/18/19 11:00 121 25 187/96 (126) 100 07/18/19 10:33 Non-Rebreather 15.0 100 07/18/19 10:20 15.0 07/18/19 10:00 124 22 176/88 (117) 100 07/18/19 09:15 98 14 30 07/18/19 09:00 101 14 142/66 (91) 100 07/18/19 08:00 30 07/18/19 08:00 99 07/18/19 08:00 97.9 115 23 187/97 (127) 100 07/18/19 08:00 Mechanical Ventilator 07/18/19 07:31 114 19 30 07/18/19 07:00 102 14 123/45 (71) 100 07/18/19 06:30 112 25 07/18/19 06:00 108 21 189/112 (137) 100 07/18/19 05:04 101 16 30 07/18/19 05:00 106 21 148/99 (115) 100 07/18/19 04:00 109 07/18/19 04:00 Mechanical Ventilator 07/18/19 04:00 30 07/18/19 04:00 98.8 100 14 120/63 (82) 100 07/18/19 03:00 99 14 154/61 (92) 100 07/18/19 02:41 106 20 30 07/18/19 02:00 102 14 112/86 (95) 100 07/18/19 01:00 102 14 158/86 (110) 100 07/18/19 00:48 94 14 30 07/18/19 00:00 109 07/18/19 00:00 98.3 107 16 128/53 (78) 100 07/18/19 00:00 30 07/18/19 00:00 Mechanical Ventilator 07/17/19 23:00 106 19 151/95 (113) 100 07/17/19 22:32 99 15 30 07/17/19 22:00 99 14 124/65 (84) 100 07/17/19 21:00 104 15 173/111 (131) 100 07/17/19 20:50 106 18 30 07/17/19 20:00 102 07/17/19 20:00 40 07/17/19 20:00 98.6 100 14 129/71 (90) 100 07/17/19 20:00 Mechanical Ventilator 07/17/19 19:00 101 14 124/67 (86) 100 07/17/19 18:54 103 17 30 07/17/19 18:00 102 14 106/61 (76) 100 07/17/19 17:02 108 16 30 07/17/19 17:00 104 19 153/90 (111) 100 07/17/19 16:00 102 07/17/19 16:00 40 07/17/19 16:00 Mechanical Ventilator 07/17/19 16:00 98.8 104 14 110/71 (84) 100 07/17/19 15:25 102 18 30 I&O Intake and Output 07/17/19 07/18/19 18:59 06:59 Intake Total 675 ml 600 ml Output Total 250 ml 550 ml Balance 425 ml 50 ml Intake IV Total 675 ml 600 ml Output Urine Total 0 ml 0 ml Gastric Drainage Total 250 ml 550 ml Dressing: saturated Wound: clean Cardiovascular: RSR Respiratory: clear Abdomen: soft, non-tender, present bowel sounds Extremities: no edema, no tenderness, no cyanosis Laboratory Tests Test 07/18/19 03:46 07/18/19 08:10 07/18/19 10:50 White Blood Count 7.7 K/UL (4.8-10.8) Red Blood Count 3.17 M/UL (4.70-6.10) L Hemoglobin 10.6 G/DL (14.2-18.0) L Hematocrit 32.2 % (42.0-52.0) L Mean Corpuscular Volume 102 FL (80-99) H Mean Corpuscular Hemoglobin 33.3 PG (27.0-31.0) H Mean Corpuscular Hemoglobin Concent 32.8 G/DL (32.0-36.0) Red Cell Distribution Width 15.2 % (11.6-14.8) H Platelet Count 89 K/UL (150-450) L Mean Platelet Volume 9.9 FL (6.5-10.1) Neutrophils (%) (Auto) % (45.0-75.0) Lymphocytes (%) (Auto) % (20.0-45.0) Monocytes (%) (Auto) % (1.0-10.0) Eosinophils (%) (Auto) % (0.0-3.0) Basophils (%) (Auto) % (0.0-2.0) Differential Total Cells Counted 100 Neutrophils % (Manual) 90 % (45-75) H Lymphocytes % (Manual) 6 % (20-45) L Monocytes % (Manual) 4 % (1-10) Eosinophils % (Manual) 0 % (0-3) Basophils % (Manual) 0 % (0-2) Band Neutrophils 0 % (0-8) Platelet Estimate Decreased L Platelet Morphology Normal Anisocytosis 1+ Macrocytosis 1+ Lactic Acid Level 2.00 mmol/L (0.4-2.0) Troponin I 0.153 ng/mL (0.000-0.056) Sodium Level 148 MMOL/L (136-145) H Potassium Level 4.1 MMOL/L (3.5-5.1) Chloride Level 106 MMOL/L (98-107) Carbon Dioxide Level 26 MMOL/L (21-32) Anion Gap 16 mmol/L (5-15) H Blood Urea Nitrogen 72 mg/dL (7-18) H Creatinine 12.4 MG/DL (0.55-1.30) H Estimat Glomerular Filtration Rate 5.2 mL/min (>60) Glucose Level 222 MG/DL (74-106) H Uric Acid 6.7 MG/DL (2.6-7.2) Calcium Level 9.0 MG/DL (8.5-10.1) Phosphorus Level 3.6 MG/DL (2.5-4.9) Magnesium Level 2.2 MG/DL (1.8-2.4) Total Bilirubin 1.0 MG/DL (0.2-1.0) Aspartate Amino Transf (AST/SGOT) 15 U/L (15-37) Alanine Aminotransferase (ALT/SGPT) 11 U/L (12-78) L Alkaline Phosphatase 109 U/L (46-116) C-Reactive Protein, Quantitative 5.3 mg/dL (0.00-0.90) H Pro-B-Type Natriuretic Peptide 38090 pg/mL (0-125) H Total Protein 7.7 G/DL (6.4-8.2) Albumin 3.0 G/DL (3.4-5.0) L Globulin 4.7 g/dL Albumin/Globulin Ratio 0.6 (1.0-2.7) L Arterial Blood pH 7.368 (7.350-7.450) Arterial Blood Partial Pressure CO2 48.5 mmHg (35.0-45.0) H Arterial Blood Partial Pressure O2 230.8 mmHg (75.0-100.0) H Arterial Blood HCO3 27.3 mmol/L (22.0-26.0) H Arterial Blood Oxygen Saturation 99.0 % (95-100) Arterial Blood Base Excess 1.4 (-2-2) Landon Test Positive Plan Problems: (1) Scrotal lesion Assessment & Plan: Continue with 3 times daily dressings okay for bacitracin and Xeroform gauze (2) Cardiac arrest Assessment & Plan: Etiology unknown pending echo appreciate cardiology input Continue current care extubated abg okay start clear liquids thank you Thank you will follow with recommendations Zenon Galloway Jul 18, 2019 15:05
--- NOTE | 2019-07-18 15:32 | NUR ---
NURSE NOTES: Started HD.
--- NOTE | 2019-07-18 17:02 | NUR ---
NURSE NOTES: Changed right scrotal surgical wound dressing. Noted with scant serosanguineous drainage.
--- NOTE | 2019-07-18 18:30 | NUR ---
NURSE NOTES: HD done. 1L out.
--- NOTE | 2019-07-18 19:19 | NUR ---
HAND-OFF: Report given to JOCE Soto. Endorsed plan of care.
--- NOTE | 2019-07-18 20:00 | NUR ---
NURSE NOTES: received report from sumaya jiang pt had hd today tolerated will relative at bedside
--- NOTE | 2019-07-18 20:09 | Cardiology Progress Note ---
Assessment/Plan Assessment/Plan 1. Status cardiac arrest, asystolic in origin. 2. Reported history of dilated cardiomyopathy that had improved in October 2018. 3. Hypertension, poorly controlled. 4. Hyperlipidemia. 5. End-stage renal disease, on hemodialysis. 6. History of systolic heart failure previously. 7. Lisinopril and penicillin allergy. 8. Diabetes mellitus. 9. Secondary hyperparathyroidism. 10. History of asthma. 11. Anemia, secondary to end-stage renal disease. 12. post arrest evidence for cardiomyopathy minro trop abn with out a peak or lorri to suggest acs an in della settign of renal failure is not specific tele personally reviewed labs noted mentation improved but still confused cxr look improved bp increased at times s/p dialysis 2 days ago overall better keep supportive care will need to repeat echo in future to see if any recovery to suggest stress induced although wall motion not typical of [place] dvt ppx heparin rn reported yes pt with food vomit yest evening post arrest , aspiration may be a possibility ? Subjective Cardiovascular: Denies: chest pain, lightheadedness Respiratory: Denies: shortness of breath Subjective extubated responsive pedro awake wasnt to try to get out of bed Objective Last 24 Hour Vital Signs Date Time Temp Pulse Resp B/P (MAP) Pulse Ox O2 Delivery O2 Flow Rate FiO2 07/18/19 18:00 117 26 150/73 (98) 100 07/18/19 17:30 115 22 147/88 (107) 100 07/18/19 17:00 113 19 163/102 (122) 100 07/18/19 16:00 98.0 116 19 152/101 (118) 100 07/18/19 16:00 2.0 07/18/19 16:00 117 07/18/19 16:00 Mechanical Ventilator 07/18/19 15:00 123 29 165/97 (119) 99 07/18/19 14:00 117 25 170/89 (116) 99 07/18/19 13:15 99 Nasal Cannula 2.0 28 07/18/19 13:00 121 26 171/90 (117) 100 07/18/19 12:00 Mechanical Ventilator 07/18/19 12:00 122 07/18/19 12:00 98.0 122 25 182/96 (124) 100 07/18/19 12:00 2.0 07/18/19 11:31 187/96 07/18/19 11:30 4.0 07/18/19 11:28 120 182/114 07/18/19 11:00 121 25 187/96 (126) 100 07/18/19 10:33 Non-Rebreather 15.0 100 07/18/19 10:20 15.0 07/18/19 10:00 124 22 176/88 (117) 100 07/18/19 09:15 98 14 30 07/18/19 09:00 101 14 142/66 (91) 100 07/18/19 08:00 30 07/18/19 08:00 99 07/18/19 08:00 97.9 115 23 187/97 (127) 100 07/18/19 08:00 Mechanical Ventilator 07/18/19 07:31 114 19 30 07/18/19 07:00 102 14 123/45 (71) 100 07/18/19 06:30 112 25 07/18/19 06:00 108 21 189/112 (137) 100 07/18/19 05:04 101 16 30 07/18/19 05:00 106 21 148/99 (115) 100 07/18/19 04:00 109 07/18/19 04:00 Mechanical Ventilator 07/18/19 04:00 30 07/18/19 04:00 98.8 100 14 120/63 (82) 100 07/18/19 03:00 99 14 154/61 (92) 100 07/18/19 02:41 106 20 30 07/18/19 02:00 102 14 112/86 (95) 100 07/18/19 01:00 102 14 158/86 (110) 100 07/18/19 00:48 94 14 30 07/18/19 00:00 109 07/18/19 00:00 98.3 107 16 128/53 (78) 100 07/18/19 00:00 30 07/18/19 00:00 Mechanical Ventilator 07/17/19 23:00 106 19 151/95 (113) 100 07/17/19 22:32 99 15 30 07/17/19 22:00 99 14 124/65 (84) 100 07/17/19 21:00 104 15 173/111 (131) 100 07/17/19 20:50 106 18 30 General Appearance: no apparent distress, alert, other - confused Neck: supple Cardiovascular: normal rate Respiratory/Chest: lungs clear Abdomen: normal bowel sounds, non tender, soft Extremities: no swelling Intake and Output 07/17/19 07/18/19 19:00 07:00 Intake Total 675 ml 600 ml Output Total 300 ml 500 ml Balance 375 ml 100 ml Intake IV Total 675 ml 600 ml Output Urine Total 0 ml 0 ml Gastric Drainage Total 300 ml 500 ml Laboratory Tests Test 07/18/19 03:46 07/18/19 08:10 07/18/19 10:50 White Blood Count 7.7 K/UL (4.8-10.8) Red Blood Count 3.17 M/UL (4.70-6.10) L Hemoglobin 10.6 G/DL (14.2-18.0) L Hematocrit 32.2 % (42.0-52.0) L Mean Corpuscular Volume 102 FL (80-99) H Mean Corpuscular Hemoglobin 33.3 PG (27.0-31.0) H Mean Corpuscular Hemoglobin Concent 32.8 G/DL (32.0-36.0) Red Cell Distribution Width 15.2 % (11.6-14.8) H Platelet Count 89 K/UL (150-450) L Mean Platelet Volume 9.9 FL (6.5-10.1) Neutrophils (%) (Auto) % (45.0-75.0) Lymphocytes (%) (Auto) % (20.0-45.0) Monocytes (%) (Auto) % (1.0-10.0) Eosinophils (%) (Auto) % (0.0-3.0) Basophils (%) (Auto) % (0.0-2.0) Differential Total Cells Counted 100 Neutrophils % (Manual) 90 % (45-75) H Lymphocytes % (Manual) 6 % (20-45) L Monocytes % (Manual) 4 % (1-10) Eosinophils % (Manual) 0 % (0-3) Basophils % (Manual) 0 % (0-2) Band Neutrophils 0 % (0-8) Platelet Estimate Decreased L Platelet Morphology Normal Anisocytosis 1+ Macrocytosis 1+ Lactic Acid Level 2.00 mmol/L (0.4-2.0) Troponin I 0.153 ng/mL (0.000-0.056) Sodium Level 148 MMOL/L (136-145) H Potassium Level 4.1 MMOL/L (3.5-5.1) Chloride Level 106 MMOL/L (98-107) Carbon Dioxide Level 26 MMOL/L (21-32) Anion Gap 16 mmol/L (5-15) H Blood Urea Nitrogen 72 mg/dL (7-18) H Creatinine 12.4 MG/DL (0.55-1.30) H Estimat Glomerular Filtration Rate 5.2 mL/min (>60) Glucose Level 222 MG/DL (74-106) H Uric Acid 6.7 MG/DL (2.6-7.2) Calcium Level 9.0 MG/DL (8.5-10.1) Phosphorus Level 3.6 MG/DL (2.5-4.9) Magnesium Level 2.2 MG/DL (1.8-2.4) Total Bilirubin 1.0 MG/DL (0.2-1.0) Aspartate Amino Transf (AST/SGOT) 15 U/L (15-37) Alanine Aminotransferase (ALT/SGPT) 11 U/L (12-78) L Alkaline Phosphatase 109 U/L (46-116) C-Reactive Protein, Quantitative 5.3 mg/dL (0.00-0.90) H Pro-B-Type Natriuretic Peptide 48301 pg/mL (0-125) H Total Protein 7.7 G/DL (6.4-8.2) Albumin 3.0 G/DL (3.4-5.0) L Globulin 4.7 g/dL Albumin/Globulin Ratio 0.6 (1.0-2.7) L Arterial Blood pH 7.368 (7.350-7.450) Arterial Blood Partial Pressure CO2 48.5 mmHg (35.0-45.0) H Arterial Blood Partial Pressure O2 230.8 mmHg (75.0-100.0) H Arterial Blood HCO3 27.3 mmol/L (22.0-26.0) H Arterial Blood Oxygen Saturation 99.0 % (95-100) Arterial Blood Base Excess 1.4 (-2-2) Landon Test Positive Emmanuel Cortés MD Jul 18, 2019 20:09
--- NOTE | 2019-07-18 22:00 | NUR ---
NURSE NOTES: pt restless and confuse removing devices karolyn soft restraints apply
[2019-07-19] VITALS (25 sets, daily range): BP systolic 111–177; BP diastolic 59–98
--- NOTE | 2019-07-19 | NUR ---
NURSE NOTES: asleep reposition and suction
--- NOTE | 2019-07-19 02:00 | NUR ---
NURSE NOTES: reposition no acute resp distress noted
--- NOTE | 2019-07-19 04:00 | NUR ---
NURSE NOTES: complete bed bath oral care and back care done
[2019-07-19 05:41] LABS: BASOPHILS % (AUTO) 0.6 % (0.0-2.0); HEMATOCRIT 35.1 % (42.0-52.0); HEMOGLOBIN 11.7 G/DL (14.2-18.0); LYMPHOCYTES % (AUTO) 8.4 % (20.0-45.0); MEAN CORPUSCULAR VOLUME 102 FL (80-99); MONOCYTES % (AUTO) 9.1 % (1.0-10.0); NEUTROPHILS % (AUTO) 80.9 % (45.0-75.0); PLATELET COUNT 105 K/UL (150-450); RED BLOOD COUNT 3.45 M/UL (4.70-6.10); WHITE BLOOD COUNT 9.1 K/UL (4.8-10.8)
[2019-07-19] MEDS: Heparin 5000 units/ml inj SUBQ SCH ×3 (06:00→22:00)
--- NOTE | 2019-07-19 06:00 | NUR ---
NURSE NOTES: Pt constantly attempting to get out of bed with side rails up. Soft wrist restraints maintain for safety to prevent falls, Explained to pt but non compliant.
[2019-07-19 06:13] LABS: ALANINE AMINOTRANSFERASE 8 U/L (12-78); ALBUMIN 3.1 G/DL (3.4-5.0); ALBUMIN/GLOBULIN RATIO 0.6 (1.0-2.7); ALKALINE PHOSPHATASE 109 U/L (46-116); ANION GAP 12 mmol/L (5-15); ASPARTATE AMINO TRANSFERASE 15 U/L (15-37); BLOOD UREA NITROGEN 53 mg/dL (7-18); CARBON DIOXIDE 32 MMOL/L (21-32); CHLORIDE 105 MMOL/L (98-107); CREATININE 10.2 MG/DL (0.55-1.30); POTASSIUM 4.2 MMOL/L (3.5-5.1); SODIUM 149 MMOL/L (136-145)
--- NOTE | 2019-07-19 07:19 | NUR ---
NURSE NOTES: Received report from JOCE Soto. Patient awake and confused. Patient is on room air and O2 sat 96% on the monitor. Still NPO status. ST will be done today. Right Hand 20G IV intact with TKO. Right scrotal surgical wound dressing intact and clean. Left upper arm shunt, + bruits and + thrill. Still on bilateral soft wrist bands restraints and both hands are warm to touch. Kept dry, clean and comfortable. Will continue plan of care.
--- NOTE | 2019-07-19 07:19 | NUR ---
HAND-OFF: Report given to maged jiang using sbar.
--- NOTE | 2019-07-19 08:54 | NUR ---
NURSE NOTES: Seen by Dr. Delgadillo and assessed patient. No new orders at this time. Will continue plan of care.
[2019-07-19] MEDS ORDERED: Carvedilol 6.25mg Tab ONE (09:02)
[2019-07-19] MEDS: Pantoprazole Inj IVP SCH ×2 (09:07→21:16)
[2019-07-19] MEDS: Carvedilol 12.5mg tab ORAL SCH ×2 (09:09→21:17)
--- NOTE | 2019-07-19 09:19 | Nephrology Progress Note ---
Assessment/Plan Problem List: (1) ESRD (end stage renal disease) (2) Acute respiratory failure (3) Cardiac arrest (4) Diabetes mellitus (5) Cardiomyopathy Assessment interoperative cardiac arrest Cardiomyopathy and Low ejfx ESRD- high K BP low at this time s/p Asystole in OR Plan self extubated 07/[address] eval TTS -3 for BP adjust coreg dose HD next 07/20 2D echo noted per orders Subjective ROS Limited/Unobtainable: No Constitutional: Reports: malaise, weakness Objective Objective Last 24 Hour Vital Signs Date Time Temp Pulse Resp B/P (MAP) Pulse Ox O2 Delivery O2 Flow Rate FiO2 07/19/19 09:09 117 159/80 07/19/19 08:00 115 21 98 Room Air 21 07/19/19 08:00 99 Room Air 21 07/19/19 08:00 Room Air 07/19/19 07:00 117 15 172/83 (112) 88 07/19/19 06:00 115 26 157/84 (108) 100 07/19/19 05:00 113 28 163/85 (111) 100 07/19/19 04:01 161/89 07/19/19 04:00 98.4 106 26 163/90 (114) 99 07/19/19 04:00 2.0 07/19/19 04:00 Mechanical Ventilator 07/19/19 04:00 110 07/19/19 03:00 108 21 164/91 (115) 100 07/19/19 02:00 112 25 171/98 (122) 100 07/19/19 01:00 112 21 164/81 (108) 100 07/19/19 00:00 110 07/19/19 00:00 98.4 111 26 177/84 (115) 99 07/19/19 00:00 2.0 07/19/19 00:00 Mechanical Ventilator 07/18/19 23:00 113 23 182/95 (124) 99 07/18/19 22:00 113 23 167/93 (117) 100 07/18/19 21:04 119 169/92 07/18/19 21:00 112 18 169/92 (117) 100 07/18/19 20:32 100 Nasal Cannula 2.0 28 07/18/19 20:00 Mechanical Ventilator 07/18/19 20:00 98.4 111 25 165/86 (112) 100 07/18/19 20:00 2.0 07/18/19 20:00 107 07/18/19 18:00 117 26 150/73 (98) 100 07/18/19 17:30 115 22 147/88 (107) 100 07/18/19 17:00 113 19 163/102 (122) 100 07/18/19 16:00 98.0 116 19 152/101 (118) 100 07/18/19 16:00 2.0 07/18/19 16:00 117 07/18/19 16:00 Nasal Cannula 2.0 07/18/19 15:00 123 29 165/97 (119) 99 07/18/19 14:00 117 25 170/89 (116) 99 07/18/19 13:15 99 Nasal Cannula 2.0 28 07/18/19 13:00 121 26 171/90 (117) 100 07/18/19 12:00 Mechanical Ventilator 07/18/19 12:00 122 07/18/19 12:00 98.0 122 25 182/96 (124) 100 07/18/19 12:00 2.0 07/18/19 11:31 187/96 07/18/19 11:30 4.0 07/18/19 11:28 120 182/114 07/18/19 11:00 121 25 187/96 (126) 100 07/18/19 10:33 Non-Rebreather 15.0 100 07/18/19 10:20 15.0 07/18/19 10:00 124 22 176/88 (117) 100 Intake and Output 07/18/19 07/19/19 18:59 06:59 Intake Total 1266 ml 20 ml Output Total 100 ml 0 ml Balance 1166 ml 20 ml Intake Oral 20 ml IV Total 266 ml Hemodialysis 1000 ml Output Urine Total 0 ml 0 ml Gastric Drainage Total 100 ml Laboratory Tests 07/18/19 10:50: Arterial Blood pH 7.368, Arterial Blood Partial Pressure CO2 48.5H, Arterial Blood Partial Pressure O2 230.8H, Arterial Blood HCO3 27.3H, Arterial Blood Oxygen Saturation 99.0, Arterial Blood Base Excess 1.4, Landon Test Positive 07/19/19 04:50: White Blood Count 9.1, Red Blood Count 3.45L, Hemoglobin 11.7L, Hematocrit 35.1L , Mean Corpuscular Volume 102H, Mean Corpuscular Hemoglobin 33.9H, Mean Corpuscular Hemoglobin Concent 33.3, Red Cell Distribution Width 15.0H, Platelet Count 105L, Mean Platelet Volume 10.4H, Neutrophils (%) (Auto) 80.9H, Lymphocytes (%) (Auto) 8.4L, Monocytes (%) (Auto) 9.1, Eosinophils (%) (Auto) 1.0, Basophils (%) (Auto) 0.6, Sodium Level 149H, Potassium Level 4.2, Chloride Level 105, Carbon Dioxide Level 32, Anion Gap 12, Blood Urea Nitrogen 53H, Creatinine 10.2H, Estimat Glomerular Filtration Rate 6.5, Glucose Level 123#H, Calcium Level 9.0, Total Bilirubin 1.0, Aspartate Amino Transf (AST/SGOT) 15, Alanine Aminotransferase (ALT/SGPT) 8L, Alkaline Phosphatase 109, Total Protein 7.9, Albumin 3.1L, Globulin 4.8, Albumin/Globulin Ratio 0.6L Height (Feet): 5 Height (Inches): 5.50 Weight (Pounds): 164 Cardiovascular: tachycardia Respiratory/Chest: decreased breath sounds Abdomen: distended Daniel Delgadillo MD Jul 19, 2019 09:19
--- NOTE | 2019-07-19 09:35 | NUR ---
NURSE NOTES: Called [facility] and confirmed HD for tomorrow 07/20/2019 with Elsa.
--- NOTE | 2019-07-19 10:23 | NUR ---
RD ASSESSMENT & RECOMMENDATIONS SEE CARE ACTIVITY FOR COMPLETE ASSESSMENT DAILY ESTIMATED NEEDS: Needs based on Pulmonary, surgical wound, ESRD on HD 69.7kg 25-35 kcals/kg 2721-3700 total kcals 1.25-1.8 g protein/kg 87-125 g total protein Fluid per MD, on HD NUTRITION DIAGNOSIS: Swallowing difficulty r/t respiratory status as evidenced by s/p cardiac arrest in OR for scrotal lesion, s/p extubation, ICU status, FIRE SAFETY MANAGER eval pending. CURRENT DIET:NPO PO DIET RECOMMENDATIONS: RENAL DIET + HIGH PRO SNACKS IN B/W MEALS (texture per FIRE SAFETY MANAGER) ADDITIONAL RECOMMENDATIONS: 1) Add NEPRO w/ variable po intake 2) Surgical wound healing: Add ARAM BID + nephrovite daily -> Vit C per RENAL MD dosing 3) Obtain a standing scale weight as medically able -> otherwise maintain calibrated bed scale wts .
--- NOTE | 2019-07-19 11:20 | General Progress Note ---
Assessment/Plan Status: unchanged Assessment/Plan: Assessment/Plan Problems: (1) Scrotal lesion ICD Codes: N50.9 - Disorder of male genital organs, unspecified SNOMED: 95611013 (2) Cardiac arrest ICD Codes: I46.9 - Cardiac arrest, cause unspecified SNOMED: 164755488 (3) Anemia ICD Codes: D64.9 - Anemia, unspecified SNOMED: 542554653 (4) Constipation ICD Codes: K59.00 - Constipation, unspecified Assessment/Plan swallow eval>> appreciated>> pending VAS NGTF for now follow up cardiology recs Anemia work-up Occult blood stool to rule out any GI bleed prn transfusions ppi will follow Subjective ROS Limited/Unobtainable: No Allergies: Coded Allergies: LISINOPRIL (Verified Allergy, Severe, Shortness of Breath, 07/02/19) THROAT SWELLS UP PENICILLINS (Verified Allergy, Severe, throat swelling, 07/17/19) tolerated Ancef x1 07/16/19 Uncoded Allergies: shellfish (Allergy, Severe, 02/06/19) shortness of breath, vomiting, throat swelling Objective Last 24 Hour Vital Signs Date Time Temp Pulse Resp B/P (MAP) Pulse Ox O2 Delivery O2 Flow Rate FiO2 07/19/19 10:14 156/81 07/19/19 09:09 117 159/80 07/19/19 09:00 118 20 159/80 (106) 97 07/19/19 08:00 115 21 98 Room Air 21 07/19/19 08:00 99 Room Air 21 07/19/19 08:00 99.9 112 22 166/81 (109) 98 07/19/19 08:00 Room Air 07/19/19 07:00 117 15 172/83 (112) 88 07/19/19 06:00 115 26 157/84 (108) 100 07/19/19 05:00 113 28 163/85 (111) 100 07/19/19 04:01 161/89 07/19/19 04:00 98.4 106 26 163/90 (114) 99 07/19/19 04:00 2.0 07/19/19 04:00 Mechanical Ventilator 07/19/19 04:00 110 07/19/19 03:00 108 21 164/91 (115) 100 07/19/19 02:00 112 25 171/98 (122) 100 07/19/19 01:00 112 21 164/81 (108) 100 07/19/19 00:00 110 07/19/19 00:00 98.4 111 26 177/84 (115) 99 07/19/19 00:00 2.0 07/19/19 00:00 Mechanical Ventilator 07/18/19 23:00 113 23 182/95 (124) 99 07/18/19 22:00 113 23 167/93 (117) 100 07/18/19 21:04 119 169/92 07/18/19 21:00 112 18 169/92 (117) 100 07/18/19 20:32 100 Nasal Cannula 2.0 28 07/18/19 20:00 Mechanical Ventilator 07/18/19 20:00 98.4 111 25 165/86 (112) 100 07/18/19 20:00 2.0 07/18/19 20:00 107 07/18/19 18:00 117 26 150/73 (98) 100 07/18/19 17:30 115 22 147/88 (107) 100 07/18/19 17:00 113 19 163/102 (122) 100 07/18/19 16:00 98.0 116 19 152/101 (118) 100 07/18/19 16:00 2.0 07/18/19 16:00 117 07/18/19 16:00 Nasal Cannula 2.0 07/18/19 15:00 123 29 165/97 (119) 99 07/18/19 14:00 117 25 170/89 (116) 99 07/18/19 13:15 99 Nasal Cannula 2.0 28 07/18/19 13:00 121 26 171/90 (117) 100 07/18/19 12:00 Mechanical Ventilator 07/18/19 12:00 122 07/18/19 12:00 98.0 122 25 182/96 (124) 100 07/18/19 12:00 2.0 07/18/19 11:31 187/96 07/18/19 11:30 4.0 07/18/19 11:28 120 182/114 Intake and Output 07/18/19 07/19/19 19:00 07:00 Intake Total 1216 ml 20 ml Output Total 100 ml 0 ml Balance 1116 ml 20 ml Intake Oral 20 ml IV Total 216 ml Hemodialysis 1000 ml Output Urine Total 0 ml 0 ml Gastric Drainage Total 100 ml Laboratory Tests 07/19/19 04:50: White Blood Count 9.1, Red Blood Count 3.45L, Hemoglobin 11.7L, Hematocrit 35.1L , Mean Corpuscular Volume 102H, Mean Corpuscular Hemoglobin 33.9H, Mean Corpuscular Hemoglobin Concent 33.3, Red Cell Distribution Width 15.0H, Platelet Count 105L, Mean Platelet Volume 10.4H, Neutrophils (%) (Auto) 80.9H, Lymphocytes (%) (Auto) 8.4L, Monocytes (%) (Auto) 9.1, Eosinophils (%) (Auto) 1.0, Basophils (%) (Auto) 0.6, Sodium Level 149H, Potassium Level 4.2, Chloride Level 105, Carbon Dioxide Level 32, Anion Gap 12, Blood Urea Nitrogen 53H, Creatinine 10.2H, Estimat Glomerular Filtration Rate 6.5, Glucose Level 123#H, Calcium Level 9.0, Total Bilirubin 1.0, Aspartate Amino Transf (AST/SGOT) 15, Alanine Aminotransferase (ALT/SGPT) 8L, Alkaline Phosphatase 109, Total Protein 7.9, Albumin 3.1L, Globulin 4.8, Albumin/Globulin Ratio 0.6L Height (Feet): 5 Height (Inches): 5.50 Weight (Pounds): 164 General Appearance: lethargic EENT: normal ENT inspection Neck: supple Cardiovascular: normal rate Respiratory/Chest: decreased breath sounds Abdomen: normal bowel sounds, non tender, soft Extremities: non-tender Richy Delarosa MD Jul 19, 2019 11:20
[2019-07-19] MEDS: Nitroglycerin Patch 0.4mg TDERMAL SCH (11:29)
--- NOTE | 2019-07-19 11:42 | Pulmonolgy Critical Care Note ---
Critical Care - Asmt/Plan Problems: (1) Cardiac arrest (2) Acute respiratory failure (3) ESRD (end stage renal disease) (4) Diabetes mellitus Respiratory: monitor respiratory rate, adjust FIO2, CXR Cardiac: continue to monitor HR/BP Renal: F/U I&O Infectious Disease: check cultures, continue antibiotics Gastrointestinal: continue feedings/current rate Endocrine: monitor blood sugar Hematologic: monitor H/H, transfuse if hgb<8.5 Neurologic: PRN Ativan, keep patient comfortable Affect: PRN ativan Prophylaxis: Protonix Time Spent (Minutes): 40 Discussed with: nurses, consultants, manager of casestudent accounts manager - Objective Last 24 Hour Vital Signs Date Time Temp Pulse Resp B/P (MAP) Pulse Ox O2 Delivery O2 Flow Rate FiO2 07/19/19 11:29 137/73 07/19/19 11:00 105 23 137/73 (94) 99 07/19/19 10:14 156/81 07/19/19 10:00 103 23 156/81 (106) 99 07/19/19 09:09 117 159/80 07/19/19 09:00 118 20 159/80 (106) 97 07/19/19 08:00 115 21 98 Room Air 21 07/19/19 08:00 102 07/19/19 08:00 99 Room Air 21 07/19/19 08:00 99.9 112 22 166/81 (109) 98 07/19/19 08:00 Room Air 07/19/19 07:00 117 15 172/83 (112) 88 07/19/19 06:00 115 26 157/84 (108) 100 07/19/19 05:00 113 28 163/85 (111) 100 07/19/19 04:01 161/89 07/19/19 04:00 98.4 106 26 163/90 (114) 99 07/19/19 04:00 2.0 07/19/19 04:00 Mechanical Ventilator 07/19/19 04:00 110 07/19/19 03:00 108 21 164/91 (115) 100 07/19/19 02:00 112 25 171/98 (122) 100 07/19/19 01:00 112 21 164/81 (108) 100 07/19/19 00:00 110 07/19/19 00:00 98.4 111 26 177/84 (115) 99 07/19/19 00:00 2.0 07/19/19 00:00 Mechanical Ventilator 07/18/19 23:00 113 23 182/95 (124) 99 07/18/19 22:00 113 23 167/93 (117) 100 07/18/19 21:04 119 169/92 07/18/19 21:00 112 18 169/92 (117) 100 07/18/19 20:32 100 Nasal Cannula 2.0 28 07/18/19 20:00 Mechanical Ventilator 07/18/19 20:00 98.4 111 25 165/86 (112) 100 07/18/19 20:00 2.0 07/18/19 20:00 107 07/18/19 18:00 117 26 150/73 (98) 100 07/18/19 17:30 115 22 147/88 (107) 100 07/18/19 17:00 113 19 163/102 (122) 100 07/18/19 16:00 98.0 116 19 152/101 (118) 100 07/18/19 16:00 2.0 07/18/19 16:00 117 07/18/19 16:00 Nasal Cannula 2.0 07/18/19 15:00 123 29 165/97 (119) 99 07/18/19 14:00 117 25 170/89 (116) 99 07/18/19 13:15 99 Nasal Cannula 2.0 28 07/18/19 13:00 121 26 171/90 (117) 100 07/18/19 12:00 Mechanical Ventilator 07/18/19 12:00 122 07/18/19 12:00 98.0 122 25 182/96 (124) 100 07/18/19 12:00 2.0 Status: awake Condition: critical Neck: full ROM Lungs: rales, rhonchi Heart: HR/BP stable Abdomen: soft, non-tender Extremities: no C/C/E Micro: Microbiology Date/Time Source Procedure Growth Status 07/17/19 05:00 Rectum VRE Culture - Final Enterococcus Faecalis - Vre Complete Critical Care - Subjective ROS Limited/Unobtainable: No Interval Events: tolerating the extubation, still confused FI02: 21 Vent Support Breath Rate: 14 Vent Support Mode: AC Vent Tidal Volume: 600 Sputum Amount: None PEEP: 5.0 PIP: 31 I&O: Intake and Output 07/18/19 07/19/19 19:00 07:00 Intake Total 1216 ml 20 ml Output Total 100 ml 0 ml Balance 1116 ml 20 ml Intake Oral 20 ml IV Total 216 ml Hemodialysis 1000 ml Output Urine Total 0 ml 0 ml Gastric Drainage Total 100 ml CXR: no changes ET-Tube: 8.0 ET Position: 24 Labs: Laboratory Tests Test 07/19/19 04:50 White Blood Count 9.1 K/UL (4.8-10.8) Red Blood Count 3.45 M/UL (4.70-6.10) L Hemoglobin 11.7 G/DL (14.2-18.0) L Hematocrit 35.1 % (42.0-52.0) L Mean Corpuscular Volume 102 FL (80-99) H Mean Corpuscular Hemoglobin 33.9 PG (27.0-31.0) H Mean Corpuscular Hemoglobin Concent 33.3 G/DL (32.0-36.0) Red Cell Distribution Width 15.0 % (11.6-14.8) H Platelet Count 105 K/UL (150-450) L Mean Platelet Volume 10.4 FL (6.5-10.1) H Neutrophils (%) (Auto) 80.9 % (45.0-75.0) H Lymphocytes (%) (Auto) 8.4 % (20.0-45.0) L Monocytes (%) (Auto) 9.1 % (1.0-10.0) Eosinophils (%) (Auto) 1.0 % (0.0-3.0) Basophils (%) (Auto) 0.6 % (0.0-2.0) Sodium Level 149 MMOL/L (136-145) H Potassium Level 4.2 MMOL/L (3.5-5.1) Chloride Level 105 MMOL/L (98-107) Carbon Dioxide Level 32 MMOL/L (21-32) Anion Gap 12 mmol/L (5-15) Blood Urea Nitrogen 53 mg/dL (7-18) H Creatinine 10.2 MG/DL (0.55-1.30) H Estimat Glomerular Filtration Rate 6.5 mL/min (>60) Glucose Level 123 MG/DL (74-106) #H Calcium Level 9.0 MG/DL (8.5-10.1) Total Bilirubin 1.0 MG/DL (0.2-1.0) Aspartate Amino Transf (AST/SGOT) 15 U/L (15-37) Alanine Aminotransferase (ALT/SGPT) 8 U/L (12-78) L Alkaline Phosphatase 109 U/L (46-116) Total Protein 7.9 G/DL (6.4-8.2) Albumin 3.1 G/DL (3.4-5.0) L Globulin 4.8 g/dL Albumin/Globulin Ratio 0.6 (1.0-2.7) L Juan Carlos Soto MD Jul 19, 2019 11:42
--- NOTE | 2019-07-19 12:15 | NUR ---
NURSE NOTES: Inserted NG tube and auscultated for placement. Will followup with KUB.
--- NOTE | 2019-07-19 12:56 | Surgery Progress Note ---
Surgery Progress Note Subjective Procedure Performed 1. excision of scrotal lesion - aborted Symptoms: improved Objective Last 24 Hour Vital Signs Date Time Temp Pulse Resp B/P (MAP) Pulse Ox O2 Delivery O2 Flow Rate FiO2 07/19/19 12:00 118 07/19/19 11:29 137/73 07/19/19 11:00 105 23 137/73 (94) 99 07/19/19 10:14 156/81 07/19/19 10:00 103 23 156/81 (106) 99 07/19/19 09:09 117 159/80 07/19/19 09:00 118 20 159/80 (106) 97 07/19/19 08:00 115 21 98 Room Air 21 07/19/19 08:00 102 07/19/19 08:00 99 Room Air 21 07/19/19 08:00 99.9 112 22 166/81 (109) 98 07/19/19 08:00 Room Air 07/19/19 07:00 117 15 172/83 (112) 88 07/19/19 06:00 115 26 157/84 (108) 100 07/19/19 05:00 113 28 163/85 (111) 100 07/19/19 04:01 161/89 07/19/19 04:00 98.4 106 26 163/90 (114) 99 07/19/19 04:00 2.0 07/19/19 04:00 Mechanical Ventilator 07/19/19 04:00 110 07/19/19 03:00 108 21 164/91 (115) 100 07/19/19 02:00 112 25 171/98 (122) 100 07/19/19 01:00 112 21 164/81 (108) 100 07/19/19 00:00 110 07/19/19 00:00 98.4 111 26 177/84 (115) 99 07/19/19 00:00 2.0 07/19/19 00:00 Mechanical Ventilator 07/18/19 23:00 113 23 182/95 (124) 99 07/18/19 22:00 113 23 167/93 (117) 100 07/18/19 21:04 119 169/92 07/18/19 21:00 112 18 169/92 (117) 100 07/18/19 20:32 100 Nasal Cannula 2.0 28 07/18/19 20:00 Mechanical Ventilator 07/18/19 20:00 98.4 111 25 165/86 (112) 100 07/18/19 20:00 2.0 07/18/19 20:00 107 07/18/19 18:00 117 26 150/73 (98) 100 07/18/19 17:30 115 22 147/88 (107) 100 07/18/19 17:00 113 19 163/102 (122) 100 07/18/19 16:00 98.0 116 19 152/101 (118) 100 07/18/19 16:00 2.0 07/18/19 16:00 117 07/18/19 16:00 Nasal Cannula 2.0 07/18/19 15:00 123 29 165/97 (119) 99 07/18/19 14:00 117 25 170/89 (116) 99 07/18/19 13:15 99 Nasal Cannula 2.0 28 07/18/19 13:00 121 26 171/90 (117) 100 I&O Intake and Output 07/18/19 07/19/19 18:59 06:59 Intake Total 1266 ml 20 ml Output Total 100 ml 0 ml Balance 1166 ml 20 ml Intake Oral 20 ml IV Total 266 ml Hemodialysis 1000 ml Output Urine Total 0 ml 0 ml Gastric Drainage Total 100 ml Dressing: saturated Wound: clean Cardiovascular: RSR Respiratory: clear Abdomen: soft, non-tender, present bowel sounds Extremities: no cyanosis Laboratory Tests Test 07/19/19 04:50 White Blood Count 9.1 K/UL (4.8-10.8) Red Blood Count 3.45 M/UL (4.70-6.10) L Hemoglobin 11.7 G/DL (14.2-18.0) L Hematocrit 35.1 % (42.0-52.0) L Mean Corpuscular Volume 102 FL (80-99) H Mean Corpuscular Hemoglobin 33.9 PG (27.0-31.0) H Mean Corpuscular Hemoglobin Concent 33.3 G/DL (32.0-36.0) Red Cell Distribution Width 15.0 % (11.6-14.8) H Platelet Count 105 K/UL (150-450) L Mean Platelet Volume 10.4 FL (6.5-10.1) H Neutrophils (%) (Auto) 80.9 % (45.0-75.0) H Lymphocytes (%) (Auto) 8.4 % (20.0-45.0) L Monocytes (%) (Auto) 9.1 % (1.0-10.0) Eosinophils (%) (Auto) 1.0 % (0.0-3.0) Basophils (%) (Auto) 0.6 % (0.0-2.0) Sodium Level 149 MMOL/L (136-145) H Potassium Level 4.2 MMOL/L (3.5-5.1) Chloride Level 105 MMOL/L (98-107) Carbon Dioxide Level 32 MMOL/L (21-32) Anion Gap 12 mmol/L (5-15) Blood Urea Nitrogen 53 mg/dL (7-18) H Creatinine 10.2 MG/DL (0.55-1.30) H Estimat Glomerular Filtration Rate 6.5 mL/min (>60) Glucose Level 123 MG/DL (74-106) #H Calcium Level 9.0 MG/DL (8.5-10.1) Total Bilirubin 1.0 MG/DL (0.2-1.0) Aspartate Amino Transf (AST/SGOT) 15 U/L (15-37) Alanine Aminotransferase (ALT/SGPT) 8 U/L (12-78) L Alkaline Phosphatase 109 U/L (46-116) Total Protein 7.9 G/DL (6.4-8.2) Albumin 3.1 G/DL (3.4-5.0) L Globulin 4.8 g/dL Albumin/Globulin Ratio 0.6 (1.0-2.7) L Plan Problems: (1) Scrotal lesion Assessment & Plan: Continue with 3 times daily dressings okay for bacitracin and Xeroform gauze (2) Cardiac arrest Assessment & Plan: Etiology unknown pending echo appreciate cardiology input Continue current care extubated abg okay start clear liquids thank you Thank you will follow with recommendations Zenon Galloway Jul 19, 2019 12:56
--- NOTE | 2019-07-19 13:04 | NUR ---
RELATIONSHIP SPECIALISTAGER TENDER SI: RESP FAILURE S/P SELF EXTUBATION,BUTTOCK LESION T. 99.9 HR 118 RR 26 B/P 172/83 RA 98% NA 149 IS: LEVAQUIN IV HEPARIN SUBC ALB HHN COREG PO ICU STATUS
--- NOTE | 2019-07-19 13:05 | NUR ---
NURSE NOTES: Dr. Burnette called and said okay to use NG tube.
--- NOTE | 2019-07-19 13:07 | Diagnostic Imaging Report ---
Indication: Status post nasogastric tube placement Technique: Supine view of the upper abdomen Comparison: 07/16/2019 Findings: As previously, there is a nasogastric tube in place, tip projected at the level gastric antrum in good position, positioned slightly more distally than previously. There are cholecystectomy clips. Bowel gas pattern is unremarkable. The included lung bases demonstrate bilateral pleural effusions Impression: Satisfactory nasogastric intubation Charge nurse Bree in the ICU notified at the time of interpretation
--- NOTE | 2019-07-19 13:08 | Infectious Diseases Prog Note ---
Assessment/Plan Assessment/Plan Assessment: Probable aspiration PNA -07/17 CXR: Bilateral pleural effusion and mild interstitial congestion and hazy parenchymal opacity present. cardiac arrest asystole during surgical procedure -07/16 CXR: pulmonary edema Non healing scrotal wound; bx showed: ruptured epidermal inclusion cyst with associated abscess formation -07/16 sp attempted excision but procedure aborted due to cardiac arrest VDRF 07/16; extubated 07/18 Afebrile Mild leukocytosis, SP ESRD on HD via L arm AVF Dm2 HTN internal hemorrhoids Plan: -Cont PO Levaquin #3/5 to cover for probable aspiration PNA -07/16 SP Ancef x1 -f/u cx -Monitor CBC/CMP, temperatures -ICU care -aspiration precautions -wound care per surgical team -Sx, Neprho, pulm f/u Thank you for this consultation. Will continue to follow along with you. Discussed with RN Subjective Allergies: Coded Allergies: LISINOPRIL (Verified Allergy, Severe, Shortness of Breath, 07/02/19) THROAT SWELLS UP PENICILLINS (Verified Allergy, Severe, throat swelling, 07/17/19) tolerated Ancef x1 07/16/19 Uncoded Allergies: shellfish (Allergy, Severe, 02/06/19) shortness of breath, vomiting, throat swelling Subjective afebrile no leukocytosis at RA Objective Vital Signs Last 24 Hour Vital Signs Date Time Temp Pulse Resp B/P (MAP) Pulse Ox O2 Delivery O2 Flow Rate FiO2 07/19/19 12:00 118 07/19/19 11:29 137/73 07/19/19 11:00 105 23 137/73 (94) 99 07/19/19 10:14 156/81 07/19/19 10:00 103 23 156/81 (106) 99 07/19/19 09:09 117 159/80 07/19/19 09:00 118 20 159/80 (106) 97 07/19/19 08:00 115 21 98 Room Air 21 07/19/19 08:00 102 07/19/19 08:00 99 Room Air 21 07/19/19 08:00 99.9 112 22 166/81 (109) 98 07/19/19 08:00 Room Air 07/19/19 07:00 117 15 172/83 (112) 88 07/19/19 06:00 115 26 157/84 (108) 100 07/19/19 05:00 113 28 163/85 (111) 100 07/19/19 04:01 161/89 07/19/19 04:00 98.4 106 26 163/90 (114) 99 07/19/19 04:00 2.0 07/19/19 04:00 Mechanical Ventilator 07/19/19 04:00 110 07/19/19 03:00 108 21 164/91 (115) 100 07/19/19 02:00 112 25 171/98 (122) 100 07/19/19 01:00 112 21 164/81 (108) 100 07/19/19 00:00 110 07/19/19 00:00 98.4 111 26 177/84 (115) 99 07/19/19 00:00 2.0 07/19/19 00:00 Mechanical Ventilator 07/18/19 23:00 113 23 182/95 (124) 99 07/18/19 22:00 113 23 167/93 (117) 100 07/18/19 21:04 119 169/92 07/18/19 21:00 112 18 169/92 (117) 100 07/18/19 20:32 100 Nasal Cannula 2.0 28 07/18/19 20:00 Mechanical Ventilator 07/18/19 20:00 98.4 111 25 165/86 (112) 100 07/18/19 20:00 2.0 07/18/19 20:00 107 07/18/19 18:00 117 26 150/73 (98) 100 07/18/19 17:30 115 22 147/88 (107) 100 07/18/19 17:00 113 19 163/102 (122) 100 07/18/19 16:00 98.0 116 19 152/101 (118) 100 07/18/19 16:00 2.0 07/18/19 16:00 117 07/18/19 16:00 Nasal Cannula 2.0 07/18/19 15:00 123 29 165/97 (119) 99 07/18/19 14:00 117 25 170/89 (116) 99 07/18/19 13:15 99 Nasal Cannula 2.0 28 Height (Feet): 5 Height (Inches): 5.50 Weight (Pounds): 164 Objective General Appearance: no apparent distress Head: normocephalic EENT: ETT in place Neck: supple Respiratory: normal breath sounds, no respiratory distress, other - intubated Cardiovascular: normal rate Gastrointestinal: normal inspection, non tender, soft, normal bowel sounds, non -distended Neurologic: oriented x3, normal inspection Skin: normal inspection, normal color, no rash, warm/dry, palpation normal, well hydrated scrotal wound packed Microbiology Date/Time Source Procedure Growth Status 07/17/19 05:00 Rectum VRE Culture - Final Enterococcus Faecalis - Vre Complete Laboratory Tests Test 07/19/19 04:50 White Blood Count 9.1 K/UL (4.8-10.8) Red Blood Count 3.45 M/UL (4.70-6.10) L Hemoglobin 11.7 G/DL (14.2-18.0) L Hematocrit 35.1 % (42.0-52.0) L Mean Corpuscular Volume 102 FL (80-99) H Mean Corpuscular Hemoglobin 33.9 PG (27.0-31.0) H Mean Corpuscular Hemoglobin Concent 33.3 G/DL (32.0-36.0) Red Cell Distribution Width 15.0 % (11.6-14.8) H Platelet Count 105 K/UL (150-450) L Mean Platelet Volume 10.4 FL (6.5-10.1) H Neutrophils (%) (Auto) 80.9 % (45.0-75.0) H Lymphocytes (%) (Auto) 8.4 % (20.0-45.0) L Monocytes (%) (Auto) 9.1 % (1.0-10.0) Eosinophils (%) (Auto) 1.0 % (0.0-3.0) Basophils (%) (Auto) 0.6 % (0.0-2.0) Sodium Level 149 MMOL/L (136-145) H Potassium Level 4.2 MMOL/L (3.5-5.1) Chloride Level 105 MMOL/L (98-107) Carbon Dioxide Level 32 MMOL/L (21-32) Anion Gap 12 mmol/L (5-15) Blood Urea Nitrogen 53 mg/dL (7-18) H Creatinine 10.2 MG/DL (0.55-1.30) H Estimat Glomerular Filtration Rate 6.5 mL/min (>60) Glucose Level 123 MG/DL (74-106) #H Calcium Level 9.0 MG/DL (8.5-10.1) Total Bilirubin 1.0 MG/DL (0.2-1.0) Aspartate Amino Transf (AST/SGOT) 15 U/L (15-37) Alanine Aminotransferase (ALT/SGPT) 8 U/L (12-78) L Alkaline Phosphatase 109 U/L (46-116) Total Protein 7.9 G/DL (6.4-8.2) Albumin 3.1 G/DL (3.4-5.0) L Globulin 4.8 g/dL Albumin/Globulin Ratio 0.6 (1.0-2.7) L Current Medications Medications (Trade) Dose Ordered Sig/David Route PRN Reason Start Time Stop Time Status Last Admin Dose Admin Acetaminophen (Tylenol) 650 mg Q4H PRN ORAL Fever 07/16/19 14:00 08/15/19 13:59 07/19/19 09:08 Acetaminophen (Tylenol) 650 mg Q4H PRN RECTAL FEVER 07/16/19 13:45 08/15/19 13:44 Albuterol/ Ipratropium (Albuterol/ Ipratropium) 3 ml Q4H PRN HHN Shortness of Breath 07/16/19 14:00 07/21/19 13:59 Carvedilol (Coreg) 12.5 mg EVERY 12 HOURS ORAL 07/19/19 10:00 08/17/19 09:59 07/19/19 09:09 Clonidine HCl (Catapres TTS-3) 1 patch QWEEK TDERMAL 07/19/19 11:00 08/18/19 10:59 07/19/19 10:14 Dextrose (Dextrose 50%) 25 ml Q30M PRN IV Hypoglycemia 07/16/19 14:00 08/15/19 13:59 Dextrose (Dextrose 50%) 50 ml Q30M PRN IV Hypoglycemia 07/16/19 14:00 08/15/19 13:59 Heparin Sodium (Porcine) (Heparin 5000 units/ml) 5,000 units EVERY 8 HOURS SUBQ 07/16/19 14:00 08/15/19 13:59 Hydralazine HCl (Apresoline) 10 mg Q4H PRN IV bp over 160 syst 07/16/19 14:00 2/26/20 13:59 07/19/19 04:01 Levofloxacin 100 ml @ 100 mls/hr Q48H IVPB 07/17/19 15:00 07/24/19 14:59 07/17/19 15:15 Lorazepam (Ativan 2mg/ml 1ml) 2 mg Q2H PRN IV agitation 07/16/19 14:00 07/23/19 13:59 07/17/19 07:07 Metoclopramide HCl (Reglan) 10 mg Q6H PRN IVP Nausea & Vomiting 07/16/19 13:45 08/15/19 13:44 07/17/19 12:42 Morphine Sulfate (Morphine Sulfate) 4 mg Q4H PRN IVP Severe Pain (Pain Scale 7-10) 07/16/19 14:00 07/23/19 13:59 Nitroglycerin (Ntg) 1 patch Q24H TDERMAL 07/17/19 12:00 08/16/19 11:59 07/19/19 11:29 Pantoprazole (Protonix) 40 mg EVERY 12 HOURS IVP 07/16/19 21:00 08/15/19 20:59 07/19/19 09:07 Sennosides (Senokot) 8.6 mg BIDPRN PRN ORAL Constipation 07/16/19 13:45 08/15/19 13:44 Lee Ann Hyatt M.D. Jul 19, 2019 13:08
--- NOTE | 2019-07-19 13:15 | NUR ---
NURSE NOTES: Started tube feeding via NGT with Nepro @ 20ml/hr. Will continue plan of care.
--- NOTE | 2019-07-19 13:37 | NUR ---
RADIOLOGY DEPT., ABDOMEN X-RAY FOR NGT PLCWI COMPLETED.-P.DYE
--- NOTE | 2019-07-19 14:56 | NUR ---
ST NOTES: REFERRED FOR SWALLOW EVAL BY DR CHAVEZ, SEE FULL REPORT DYSPHAGIA RISK FACTORS FOR THIS 49 Y.O.M. ACUTE S/P CARDIAC ARREST (CONFUSED) AND INTUBATED 07/16 TO 07/18 (SELF-EXTUBATED ONE DAY AGO) S/P SURGERY FOR BUTTOCKS AND SCROTAL LESIONS ON 2 LITER NC BUT RESP RATE GOES UP TO 26 AT TIMES HIGH. H/O CVA 09/2018 MAY HAVE BEEN MILD SINCE DR POOLE SAID HE WAS EATING 2 DAYS AGO AND WALKED INTO SURGERY, ASTHMA, RESP AND GI D/O, ESRD WITH HD NO POLST/AD REGARDING LT ARTIFICIAL NUTRITION PREFERENCES IN CHART HAD OGT PULLED OUT YESTERDAY NPO NOW. PER JOCE BASSETT NO APPARENT S/S OF OVERT ASP WITH CRUSHED MEDS PUREED. ALERT BUT CONFUSED AND DYSPHONIC (BREATHY VOICE ONE DAY POST EXTUBATION). ABLE TO SAY SOME WORDS BUT POOR AT FOLLOWING COMMANDS AND ANSWERING QUESTIONS. MISSING MANY TEETH NO MOLARS AND NO DENTURES. INITIAL IMPRESSIONS S/S OF A SIGNIFICANT OROPHARYNGEAL DYSPHAGIA (LESS EFFICIENT SWALLOW) WITH INCREASED TRANSIT TIMES WITH HIGH RISK FOR SILENT ASPIRATION AND POOR/SLOW PO INTAKE GIVEN TSP OF WATER WITH RN PREVIOUSLY COUGHED/ASPIRATED SO WILL HOLD ON THIS TRIAL GIVEN NECTAR THICK LIQUIDS TSP, CHEWS UNNECESSARILY FOR 2 TO 4 SECS AND SWALLOWED WITH FAIR HYOLARYNGEAL EXCURSION, NO OVERT ASP WITH SIP VIA CUP CHEWED LIQUID FOR 4 SEC AND SWALLOWED AGAIN SWALLOWED W/O OVERT ASPIRATION. GIVEN PUREED TSP, HE CHEWED IT FOR 10 SEC AND SWALLOWED AGAIN 18 SEC LATER, NO OVERT ASPIRATION. HAS A SILENT ASPIRATION RISK (GIVEN MILD CVA HX AND HAD A RECENT CARDIAC ARREST) HIGH RISK FOR SLOW AND POOR INTAKE RECOMMENDATIONS KEEP NPO FOR NOW, CONSIDER TEMPORARY NGT (12 KYRGYZ) UNTIL READY FOR MOD BARIUM SWALLOW STUDY (NEXT MON NO VIDEOS FRI AND OVER W/E). AN RAMSEY NOTED DIET TYPE FOR FORMULA CONTINUE WITH ORAL CARE SKILLED DYSPHAGIA MANAGEMENT AND TX AND COG-COM EVAL/TX SINCE HE IS STILL VERY CONFUSED AND VOICE IS STILL BREATHY (ONLY ONE DAY POST EXTUBATION) D/W DR POOLE, DR WILL, RN DANYELLE, AND DR CHAVEZ REGARDING ABOVE
--- NOTE | 2019-07-19 15:02 | NUR ---
FENDER MECHANIC NOTE WILDER attempted to reach pt's [facility] [phone] for psychosocial assessment. WILDER did not receive a call back from [facility]. WILDER was unable to find additional contact information other than this number. Per chart review, a nursing staff was able to contact [facility] on 07/16/2019. Pt is awake and orally intubated. Signed: 07/19/19 at 1505 by NEDA HDZ <Co-Signature Required>
--- NOTE | 2019-07-19 15:06 | NUR ---
NURSE NOTES: Seen by Dr. Hyatt and assessed patient. Informed that patient is positive for VRE rectum. No new order at this time. Repositioned patient.
--- NOTE | 2019-07-19 15:58 | NUR ---
NURSE NOTES: Patient vomited x1 with yellow color drainage. No residual noted. Held tube feeding at this time. Repositioned patient and Kept HOB>45. Will continue plan of care.
--- NOTE | 2019-07-19 17:02 | NUR ---
NURSE NOTES: Bed bath given and oral care suction provided.
--- NOTE | 2019-07-19 18:18 | Cardiology Progress Note ---
Assessment/Plan Assessment/Plan 1. Status cardiac arrest, asystolic in origin. 2. Reported history of dilated cardiomyopathy that had improved in October 2018. 3. Hypertension, poorly controlled. 4. Hyperlipidemia. 5. End-stage renal disease, on hemodialysis. 6. History of systolic heart failure previously. 7. Lisinopril and penicillin allergy. 8. Diabetes mellitus. 9. Secondary hyperparathyroidism. 10. History of asthma. 11. Anemia, secondary to end-stage renal disease. 12. post arrest evidence for cardiomyopathy minro trop abn with out a peak or lorri to suggest acs an in della settign of renal failure is not specific tele personally reviewed labs noted mentation improved appear calmer today and more appropriate bp increased cannot take acei due to allergy s/p dialysis overall better keep supportive care will need to repeat echo in future to see if any recovery to suggest stress induced although wall motion not typical of [place] dvt ppx heparin rn reported on initial admission to icu pt with food vomit post arrest , aspiration may be a possibility ? trop and ekg in am isordil hydralazine for cm Subjective Cardiovascular: Denies: chest pain, lightheadedness, palpitations Respiratory: Denies: shortness of breath Gastrointestinal/Abdominal: Denies: abdominal pain Genitourinary: Denies: burning Objective Last 24 Hour Vital Signs Date Time Temp Pulse Resp B/P (MAP) Pulse Ox O2 Delivery O2 Flow Rate FiO2 07/19/19 18:07 162/79 07/19/19 17:00 107 17 164/82 (109) 100 07/19/19 16:00 112 07/19/19 16:00 99.3 107 18 138/72 (94) 100 07/19/19 16:00 Nasal Cannula 2.0 07/19/19 15:01 105 17 144/81 (102) 100 07/19/19 14:00 110 25 136/74 (94) 98 07/19/19 13:15 Nasal Cannula 2.0 07/19/19 13:00 108 23 144/69 (94) 100 07/19/19 12:00 99.1 112 23 158/81 (106) 99 07/19/19 12:00 Room Air 07/19/19 12:00 118 07/19/19 11:29 137/73 07/19/19 11:00 105 23 137/73 (94) 99 07/19/19 10:14 156/81 07/19/19 10:00 103 23 156/81 (106) 99 07/19/19 09:09 117 159/80 07/19/19 09:00 118 20 159/80 (106) 97 07/19/19 08:00 115 21 98 Room Air 21 07/19/19 08:00 102 07/19/19 08:00 99 Room Air 21 07/19/19 08:00 99.9 112 22 166/81 (109) 98 07/19/19 08:00 Room Air 07/19/19 07:00 117 15 172/83 (112) 88 07/19/19 06:00 115 26 157/84 (108) 100 07/19/19 05:00 113 28 163/85 (111) 100 07/19/19 04:01 161/89 07/19/19 04:00 98.4 106 26 163/90 (114) 99 07/19/19 04:00 2.0 07/19/19 04:00 Mechanical Ventilator 07/19/19 04:00 110 07/19/19 03:00 108 21 164/91 (115) 100 07/19/19 02:00 112 25 171/98 (122) 100 07/19/19 01:00 112 21 164/81 (108) 100 07/19/19 00:00 110 07/19/19 00:00 98.4 111 26 177/84 (115) 99 07/19/19 00:00 2.0 07/19/19 00:00 Mechanical Ventilator 07/18/19 23:00 113 23 182/95 (124) 99 07/18/19 22:00 113 23 167/93 (117) 100 07/18/19 21:04 119 169/92 07/18/19 21:00 112 18 169/92 (117) 100 07/18/19 20:32 100 Nasal Cannula 2.0 28 07/18/19 20:00 Mechanical Ventilator 07/18/19 20:00 98.4 111 25 165/86 (112) 100 07/18/19 20:00 2.0 07/18/19 20:00 107 General Appearance: alert Neck: supple Cardiovascular: normal rate Respiratory/Chest: lungs clear Abdomen: normal bowel sounds, non tender, soft Extremities: no swelling Intake and Output 07/18/19 07/19/19 19:00 07:00 Intake Total 1216 ml 20 ml Output Total 100 ml 0 ml Balance 1116 ml 20 ml Intake Oral 20 ml IV Total 216 ml Hemodialysis 1000 ml Output Urine Total 0 ml 0 ml Gastric Drainage Total 100 ml Laboratory Tests Test 07/19/19 04:50 White Blood Count 9.1 K/UL (4.8-10.8) Red Blood Count 3.45 M/UL (4.70-6.10) L Hemoglobin 11.7 G/DL (14.2-18.0) L Hematocrit 35.1 % (42.0-52.0) L Mean Corpuscular Volume 102 FL (80-99) H Mean Corpuscular Hemoglobin 33.9 PG (27.0-31.0) H Mean Corpuscular Hemoglobin Concent 33.3 G/DL (32.0-36.0) Red Cell Distribution Width 15.0 % (11.6-14.8) H Platelet Count 105 K/UL (150-450) L Mean Platelet Volume 10.4 FL (6.5-10.1) H Neutrophils (%) (Auto) 80.9 % (45.0-75.0) H Lymphocytes (%) (Auto) 8.4 % (20.0-45.0) L Monocytes (%) (Auto) 9.1 % (1.0-10.0) Eosinophils (%) (Auto) 1.0 % (0.0-3.0) Basophils (%) (Auto) 0.6 % (0.0-2.0) Sodium Level 149 MMOL/L (136-145) H Potassium Level 4.2 MMOL/L (3.5-5.1) Chloride Level 105 MMOL/L (98-107) Carbon Dioxide Level 32 MMOL/L (21-32) Anion Gap 12 mmol/L (5-15) Blood Urea Nitrogen 53 mg/dL (7-18) H Creatinine 10.2 MG/DL (0.55-1.30) H Estimat Glomerular Filtration Rate 6.5 mL/min (>60) Glucose Level 123 MG/DL (74-106) #H Calcium Level 9.0 MG/DL (8.5-10.1) Total Bilirubin 1.0 MG/DL (0.2-1.0) Aspartate Amino Transf (AST/SGOT) 15 U/L (15-37) Alanine Aminotransferase (ALT/SGPT) 8 U/L (12-78) L Alkaline Phosphatase 109 U/L (46-116) Total Protein 7.9 G/DL (6.4-8.2) Albumin 3.1 G/DL (3.4-5.0) L Globulin 4.8 g/dL Albumin/Globulin Ratio 0.6 (1.0-2.7) L Microbiology Date/Time Source Procedure Growth Status 07/17/19 05:00 Rectum VRE Culture - Final Enterococcus Faecalis - Vre Complete Emmanuel Cortés MD Jul 19, 2019 18:18
--- NOTE | 2019-07-19 18:26 | NUR ---
NURSE NOTES: Seen by Dr. Cortés and assessed patient.
--- NOTE | 2019-07-19 18:27 | Internal Med Progress Note ---
Subjective Date of Service: Jul 19, 2019 Physician Name Michael Perez Attending Physician Zuhair Singleton MD Current Medications Medications (Trade) Dose Ordered Sig/David Route PRN Reason Start Time Stop Time Status Last Admin Dose Admin Acetaminophen (Tylenol) 650 mg Q4H PRN ORAL Fever 07/16/19 14:00 08/15/19 13:59 07/19/19 09:08 Acetaminophen (Tylenol) 650 mg Q4H PRN RECTAL FEVER 07/16/19 13:45 08/15/19 13:44 Albuterol/ Ipratropium (Albuterol/ Ipratropium) 3 ml Q4H PRN HHN Shortness of Breath 07/16/19 14:00 07/21/19 13:59 Carvedilol (Coreg) 12.5 mg EVERY 12 HOURS ORAL 07/19/19 10:00 08/17/19 09:59 07/19/19 09:09 Clonidine HCl (Catapres TTS-3) 1 patch QWEEK TDERMAL 07/19/19 11:00 08/18/19 10:59 07/19/19 10:14 Dextrose (Dextrose 50%) 25 ml Q30M PRN IV Hypoglycemia 07/16/19 14:00 08/15/19 13:59 Dextrose (Dextrose 50%) 50 ml Q30M PRN IV Hypoglycemia 07/16/19 14:00 08/15/19 13:59 Heparin Sodium (Porcine) (Heparin 5000 units/ml) 5,000 units EVERY 8 HOURS SUBQ 07/16/19 14:00 08/15/19 13:59 Hydralazine HCl (Apresoline) 10 mg Q4H PRN IV bp over 160 syst 07/16/19 14:00 08/15/19 13:59 07/19/19 18:07 Hydralazine HCl (Apresoline) 25 mg Q6HR ORAL 07/19/19 18:30 08/18/19 18:29 UNV Levofloxacin 100 ml @ 100 mls/hr Q48H IVPB 07/17/19 15:00 07/24/19 14:59 07/19/19 14:35 Lorazepam (Ativan 2mg/ml 1ml) 2 mg Q2H PRN IV agitation 07/16/19 14:00 07/23/19 13:59 07/17/19 07:07 Metoclopramide HCl (Reglan) 10 mg Q6H PRN IVP Nausea & Vomiting 07/16/19 13:45 08/15/19 13:44 07/17/19 12:42 Morphine Sulfate (Morphine Sulfate) 4 mg Q4H PRN IVP Severe Pain (Pain Scale 7-10) 07/16/19 14:00 07/23/19 13:59 Nitroglycerin (Ntg) 1 patch Q24H TDERMAL 07/20/19 12:00 08/19/19 11:59 UNV Pantoprazole (Protonix) 40 mg EVERY 12 HOURS IVP 07/16/19 21:00 08/15/19 20:59 07/19/19 09:07 Sennosides (Senokot) 8.6 mg BIDPRN PRN ORAL Constipation 07/16/19 13:45 08/15/19 13:44 Allergies: Coded Allergies: LISINOPRIL (Verified Allergy, Severe, Shortness of Breath, 07/02/19) THROAT SWELLS UP PENICILLINS (Verified Allergy, Severe, throat swelling, 07/17/19) tolerated Ancef x1 07/16/19 Uncoded Allergies: shellfish (Allergy, Severe, 02/06/19) shortness of breath, vomiting, throat swelling ROS Limited/Unobtainable: Yes Subjective 49 YO M admitted for scrotal fistulotomy. S/P cardiac arrest. Self extubated . Cover for Int tim-Dr Singleton. ICU Objective Last Vital Signs Date Time Temp Pulse Resp B/P (MAP) Pulse Ox O2 Delivery O2 Flow Rate FiO2 07/19/19 18:07 162/79 07/19/19 17:00 107 17 100 07/19/19 16:00 99.3 07/19/19 16:00 Nasal Cannula 2.0 07/19/19 08:00 21 Laboratory Tests Test 07/19/19 04:50 White Blood Count 9.1 K/UL (4.8-10.8) Red Blood Count 3.45 M/UL (4.70-6.10) L Hemoglobin 11.7 G/DL (14.2-18.0) L Hematocrit 35.1 % (42.0-52.0) L Mean Corpuscular Volume 102 FL (80-99) H Mean Corpuscular Hemoglobin 33.9 PG (27.0-31.0) H Mean Corpuscular Hemoglobin Concent 33.3 G/DL (32.0-36.0) Red Cell Distribution Width 15.0 % (11.6-14.8) H Platelet Count 105 K/UL (150-450) L Mean Platelet Volume 10.4 FL (6.5-10.1) H Neutrophils (%) (Auto) 80.9 % (45.0-75.0) H Lymphocytes (%) (Auto) 8.4 % (20.0-45.0) L Monocytes (%) (Auto) 9.1 % (1.0-10.0) Eosinophils (%) (Auto) 1.0 % (0.0-3.0) Basophils (%) (Auto) 0.6 % (0.0-2.0) Sodium Level 149 MMOL/L (136-145) H Potassium Level 4.2 MMOL/L (3.5-5.1) Chloride Level 105 MMOL/L (98-107) Carbon Dioxide Level 32 MMOL/L (21-32) Anion Gap 12 mmol/L (5-15) Blood Urea Nitrogen 53 mg/dL (7-18) H Creatinine 10.2 MG/DL (0.55-1.30) H Estimat Glomerular Filtration Rate 6.5 mL/min (>60) Glucose Level 123 MG/DL (74-106) #H Calcium Level 9.0 MG/DL (8.5-10.1) Total Bilirubin 1.0 MG/DL (0.2-1.0) Aspartate Amino Transf (AST/SGOT) 15 U/L (15-37) Alanine Aminotransferase (ALT/SGPT) 8 U/L (12-78) L Alkaline Phosphatase 109 U/L (46-116) Total Protein 7.9 G/DL (6.4-8.2) Albumin 3.1 G/DL (3.4-5.0) L Globulin 4.8 g/dL Albumin/Globulin Ratio 0.6 (1.0-2.7) L Microbiology Date/Time Source Procedure Growth Status 07/17/19 05:00 Rectum VRE Culture - Final Enterococcus Faecalis - Vre Complete Intake and Output 07/18/19 07/19/19 19:00 07:00 Intake Total 1216 ml 20 ml Output Total 100 ml 0 ml Balance 1116 ml 20 ml Intake Oral 20 ml IV Total 216 ml Hemodialysis 1000 ml Output Urine Total 0 ml 0 ml Gastric Drainage Total 100 ml Objective PHYSICAL EXAMINATION: GENERAL: The patient is well-developed well-nourished male, intubated and sedated in the intensive care unit. CHEST: nasal canula; Diffuse coarse breath sounds bilaterally without wheezes CARDIOVASCULAR: Regular rhythm and rate. S1, S2 are normal without murmurs, rubs, or gallops. ABDOMEN: Soft, nontender, nondistended. Positive bowel sounds. No evidence of hepatosplenomegaly. Currently, no rebound or guarding noted. EXTREMITIES: Negative for clubbing, cyanosis, edema. NEUROLOGIC: Unable to assess. Assessment/Plan Assessment/Plan ASSESSMENT: This is a 49-year-old male. 1. Scrotal fistula. 2. Status post cardiac arrest. 3. Renal failure. 4. Hypertension. 5. Gout. 6. End stage renal disease on hemodialysis. 7. Cardiomyopathy 8. Systolic CHF TREATMENT: 1. Scrotal fistula. Surgery was aborted on 07/16/2019. Follow recommendations of Surgery, Dr. Galloway. 2. Status post cardiac arrest. The patient is S/P self-extubation in the intensive care unit. A Cardiology consultation has been obtained with Dr. Emmanuel Cortés. Follow recommendations of Cardiology. 3. End stage renal disease. A Nephrology consultation has been obtained with Dr. Daniel Delgadillo. Follow recommendations of Nephrology. 4. Hypertension. The patient is currently hypotensive in the intensive care unit. 5. Gout. Michael Perez MD Jul 19, 2019 18:27
[2019-07-19] MEDS: HydrALAZINE 25mg tab ORAL SCH (18:30)
--- NOTE | 2019-07-19 19:00 | NUR ---
NURSE NOTES: Patient vomited yellow color emesis. Stop tube feeding. Kept HOB>30.
--- NOTE | 2019-07-19 19:15 | NUR ---
NURSE NOTES: Partial bed bath given. Changed lines and gown.
--- NOTE | 2019-07-19 19:30 | NUR ---
NURSE NOTES: Received pt in no acute distress. Awake, alert but mildly confused. HOB elevated, fall precautions in place. RAMIREZ's slightly restless. Sightly short of breath on minimal exertion. On 2l/m via NC. Skin warm and dry, temp 99.[address] on the monitor, BP stable. NGT noted on right nare with Nepro running at 20ml/h. Left Arm AVGraft with strong bruit and thrill. Pt has HD order for farzana. Right hand PIV intact. IV at TKO. Right inguinal dressing dry and intact. Will continue to monitor VS and follow through with plan of care.
--- NOTE | 2019-07-19 19:43 | NUR ---
HAND-OFF: Report given to JOCE Roberts. Endorsed plan of care.
--- NOTE | 2019-07-19 22:00 | NUR ---
NURSE NOTES: Still awake and mildly restless. Bilat soft wrist restraints maintained. Still Tachycardic at 106bpm. BP stable. No distress noted. called and updated on pt;s condition as well as possible transfer out of ICU
[2019-07-20] VITALS (7 sets, daily range): BP systolic 93–136; BP diastolic 58–74
[2019-07-20] MEDS: HydrALAZINE 25mg tab ORAL SCH (00:08)
--- NOTE | 2019-07-20 01:20 | NUR ---
NURSE NOTES: transferred per bed to [facility] in stable condition. Belongings transferred with pt. Care endorsed to Guillermina HOBSON
--- NOTE | 2019-07-20 01:21 | NUR ---
NURSE NOTES: received pt from Elmer Dick RN., pt is awake and follows little commands and confused. pt is on 2L of NC and O2sat is at 99%. Right NGT nephro 1.8 is running at 20cc/hr at this moment, no residual noted and flushes well. graft on left upper arm for HD, bruit and thrill noted. right hand 20G IV site is clean, intact, and patent, TKO is running. no s/s of pain and pt states no pain at this moment. SCD si on. call light within reach, prekindergarten teacher applied. belonging list checked. bed at the lowest position, alarmed, and locked. soft bilateral wrist restrained noted, pulse noted, skin is good, circulation noted. right lower scrotum surgical site is noted with dressing, and dressing is clean, dry, and intact. all skin is intact upon transfer from ICU.
[2019-07-20] MEDS ORDERED: Acetaminophen 650 MG SUPP RECTAL PRN (01:45)
[2019-07-20] MEDS ORDERED: Metoclopramide 10mg/2ml Inj IVP PRN (01:45)
[2019-07-20] MEDS ORDERED: Albuterol/Ipratropium 3ml neb HHN PRN (02:00)
[2019-07-20] MEDS ORDERED: LORazepam Inj 2mg/ml 1ml IV PRN (02:00)
[2019-07-20] MEDS ORDERED: Morphine Sulfate 4mg/ml Inj (IV USE ONLY) IVP PRN (02:00)
[2019-07-20 04:46] LABS: BASOPHILS % (AUTO) 0.6 % (0.0-2.0); EOSINOPHILS % (AUTO) 1.9 % (0.0-3.0); HEMATOCRIT 37.3 % (42.0-52.0); HEMOGLOBIN 12.2 G/DL (14.2-18.0); LYMPHOCYTES % (AUTO) 8.2 % (20.0-45.0); MEAN CORPUSCULAR VOLUME 102 FL (80-99); MONOCYTES % (AUTO) 9.5 % (1.0-10.0); NEUTROPHILS % (AUTO) 79.8 % (45.0-75.0); PLATELET COUNT 107 K/UL (150-450); RED BLOOD COUNT 3.65 M/UL (4.70-6.10); RED CELL DISTRIBUTION WIDTH 14.7 % (11.6-14.8); WHITE BLOOD COUNT 9.5 K/UL (4.8-10.8)
[2019-07-20 05:15] LABS: ALANINE AMINOTRANSFERASE 6 U/L (12-78); ALBUMIN 2.9 G/DL (3.4-5.0); ALBUMIN/GLOBULIN RATIO 0.6 (1.0-2.7); ALKALINE PHOSPHATASE 111 U/L (46-116); ANION GAP 12 mmol/L (5-15); ASPARTATE AMINO TRANSFERASE 12 U/L (15-37); BILIRUBIN,TOTAL 0.8 MG/DL (0.2-1.0); BLOOD UREA NITROGEN 76 mg/dL (7-18); CARBON DIOXIDE 30 MMOL/L (21-32); CHLORIDE 107 MMOL/L (98-107); CREATININE 12.5 MG/DL (0.55-1.30); PHOSPHORUS 5.6 MG/DL (2.5-4.9); POTASSIUM 4.3 MMOL/L (3.5-5.1); SODIUM 149 MMOL/L (136-145)
[2019-07-20] MEDS: Heparin 5000 units/ml inj SUBQ SCH ×3 (06:00→21:32)
[2019-07-20] MEDS: Nitroglycerin Patch 0.4mg TDERMAL SCH (06:00)
[2019-07-20] MEDS ORDERED: HydrALAZINE 25mg tab ORAL SCH (06:00)
--- NOTE | 2019-07-20 06:00 | NUR ---
NURSE NOTES: changed dressing on right lower surgical site, no s/s of infection at the site. sterile technique used with wet to dry sterile dressing. call light within reach. no SOB noted. pt is awake.
--- NOTE | 2019-07-20 06:04 | NUR ---
NURSE NOTES: prior to HD (Hemodialysis) held 2 of BP medication that were due at 0600. pt is stable condition, no SOB at this moment. pt is keep trying to get out of the bed. call light within reach. pt's 07.20.2019 shows plt is 135 lower than yesterday value, and pt is non-stop moving and held heparin 5k unit. SCD is on the pt at this moment.pt is not cooperative at this moment.
--- NOTE | 2019-07-20 07:33 | NUR ---
NURSE NOTES: LATE ENTRY: RECEIVED REPORT FROM SIMIN MAGANA. Ruel PT IN BED. OPENS EYES TO NAME. VERY DROWSY, SPEECH DELAYED AND GARBLED. VS HR 105, RR 18, 136/63, 02 SAT 95%, AX TEMP 97.6. PT IN BILATERAL SOFT WRIST RESTRAINTS. ABDOMEN SOFT, NO BM AT THIS TIME. NGT RT NARES. TUBE FEEDING OFF, WILL RESTART. NEPRO AT 25ML/HR. PT ANURIC. GRAFT ROYA. THRILL AND BRUIT PRESENT. DRESSING INTACT SCROTAL AREA. CONTACT PRECAUTIONS IN PLACE. BED LOCKED IN LOW POSITION.
--- NOTE | 2019-07-20 07:38 | NUR ---
HAND-OFF: Report given to joe HOBSON. pt is in stable condition
--- NOTE | 2019-07-20 08:31 | NUR ---
RADIOLOGY DEPT., CHEST X-RAY DONE.-P.DYE
[2019-07-20] MEDS ORDERED: Pantoprazole Inj IVP SCH (09:00)
[2019-07-20] MEDS ORDERED: Carvedilol 12.5mg tab ORAL SCH (09:00)
--- NOTE | 2019-07-20 09:50 | NUR ---
NURSE NOTES: LATE ENTRY: MD WILL HERE TO SEE PT. PLACE ORDER FOR SWALLOW EVAL.
--- NOTE | 2019-07-20 09:51 | General Progress Note ---
Assessment/Plan Status: unchanged Assessment/Plan: Assessment/Plan Problems: (1) Scrotal lesion ICD Codes: N50.9 - Disorder of male genital organs, unspecified SNOMED: 72525673 (2) Cardiac arrest ICD Codes: I46.9 - Cardiac arrest, cause unspecified SNOMED: 192719605 (3) Anemia ICD Codes: D64.9 - Anemia, unspecified SNOMED: 705855435 (4) Constipation ICD Codes: K59.00 - Constipation, unspecified Assessment/Plan swallow eval>> appreciated>> pending VAS NGTF for now follow up cardiology recs Anemia work-up Occult blood stool to rule out any GI bleed prn transfusions ppi will follow Subjective ROS Limited/Unobtainable: No Allergies: Coded Allergies: LISINOPRIL (Verified Allergy, Severe, Shortness of Breath, 07/02/19) THROAT SWELLS UP PENICILLINS (Verified Allergy, Severe, throat swelling, 07/17/19) tolerated Ancef x1 07/16/19 Uncoded Allergies: shellfish (Allergy, Severe, 02/06/19) shortness of breath, vomiting, throat swelling Objective Last 24 Hour Vital Signs Date Time Temp Pulse Resp B/P (MAP) Pulse Ox O2 Delivery O2 Flow Rate FiO2 07/20/19 08:26 105 136/63 07/20/19 04:00 Nasal Cannula 2.0 07/20/19 04:00 98.9 109 20 129/62 (84) 92 07/20/19 03:37 106 07/20/19 01:00 105 15 132/58 (82) 100 07/20/19 00:08 128/74 07/20/19 00:00 106 07/20/19 00:00 Nasal Cannula 2.0 07/20/19 00:00 98.7 106 20 128/74 (92) 100 07/19/19 23:00 107 20 145/71 (95) 100 07/19/19 22:00 113 23 134/62 (86) 100 07/19/19 21:17 116 150/72 07/19/19 21:00 114 22 150/72 (98) 100 07/19/19 20:00 99.1 115 24 111/66 (81) 100 07/19/19 20:00 Nasal Cannula 2.0 07/19/19 20:00 110 07/19/19 19:30 99 Room Air 21 07/19/19 19:00 115 22 130/59 (82) 100 07/19/19 18:30 129/59 07/19/19 18:19 113 27 144/67 (92) 100 07/19/19 18:07 162/79 07/19/19 18:00 109 26 162/79 (106) 100 07/19/19 17:00 107 17 164/82 (109) 100 07/19/19 16:00 112 07/19/19 16:00 99.3 107 18 138/72 (94) 100 07/19/19 16:00 Nasal Cannula 2.0 07/19/19 15:01 105 17 144/81 (102) 100 07/19/19 14:00 110 25 136/74 (94) 98 07/19/19 13:15 Nasal Cannula 2.0 07/19/19 13:00 108 23 144/69 (94) 100 07/19/19 12:00 99.1 112 23 158/81 (106) 99 07/19/19 12:00 Room Air 07/19/19 12:00 118 07/19/19 11:29 137/73 07/19/19 11:00 105 23 137/73 (94) 99 07/19/19 10:14 156/81 07/19/19 10:00 103 23 156/81 (106) 99 Intake and Output 07/19/19 07/20/19 19:00 07:00 Intake Total 230 ml 325 ml Output Total 30 ml 0 ml Balance 200 ml 325 ml Free Water 50 ml 40 ml IV Total 100 ml Tube Feeding 80 ml 255 ml Other 30 ml Output Urine Total 0 ml 0 ml Emesis 30 ml # Bowel Movements 3 Laboratory Tests 07/20/19 03:50: White Blood Count 9.5, Red Blood Count 3.65L, Hemoglobin 12.2L, Hematocrit 37.3L , Mean Corpuscular Volume 102H, Mean Corpuscular Hemoglobin 33.5H, Mean Corpuscular Hemoglobin Concent 32.7, Red Cell Distribution Width 14.7, Platelet Count 107L, Mean Platelet Volume 9.9, Neutrophils (%) (Auto) 79.8H, Lymphocytes (%) (Auto) 8.2L, Monocytes (%) (Auto) 9.5, Eosinophils (%) (Auto) 1.9, Basophils (%) (Auto) 0.6, Sodium Level 149H, Potassium Level 4.3, Chloride Level 107, Carbon Dioxide Level 30, Anion Gap 12, Blood Urea Nitrogen 76H, Creatinine 12.5H, Estimat Glomerular Filtration Rate 5.2, Glucose Level 135H, Calcium Level 9.0, Phosphorus Level 5.6H, Magnesium Level 2.4, Total Bilirubin 0.8, Aspartate Amino Transf (AST/SGOT) 12L, Alanine Aminotransferase (ALT/SGPT) 6L, Alkaline Phosphatase 111, Troponin I 0.072H, C-Reactive Protein, Quantitative 2.9H, Pro-B-Type Natriuretic Peptide 45437B, Total Protein 7.6, Albumin 2.9L, Globulin 4.7, Albumin/Globulin Ratio 0.6L Height (Feet): 5 Height (Inches): 5.50 Weight (Pounds): 165 General Appearance: no apparent distress EENT: normal ENT inspection Neck: supple Cardiovascular: normal rate Respiratory/Chest: decreased breath sounds Abdomen: normal bowel sounds, non tender, soft Extremities: non-tender Richy Delarosa MD Jul 20, 2019 09:51
--- NOTE | 2019-07-20 11:04 | Pulmonology Progress Note ---
Assessment/Plan Problems: (1) Cardiac arrest (2) Acute respiratory failure (3) ESRD (end stage renal disease) (4) Diabetes mellitus (5) Cardiomyopathy (6) Hypertension Assessment/Plan swallow study HD by nephrology monitor BP titrate cardiac meds sliding scale diabetic diet Subjective ROS Limited/Unobtainable: No Interval Events: awake, has NG tube Allergies: Coded Allergies: LISINOPRIL (Verified Allergy, Severe, Shortness of Breath, 07/02/19) THROAT SWELLS UP PENICILLINS (Verified Allergy, Severe, throat swelling, 07/17/19) tolerated Ancef x1 07/16/19 Uncoded Allergies: shellfish (Allergy, Severe, 02/06/19) shortness of breath, vomiting, throat swelling Objective Last 24 Hour Vital Signs Date Time Temp Pulse Resp B/P (MAP) Pulse Ox O2 Delivery O2 Flow Rate FiO2 07/20/19 08:26 105 136/63 07/20/19 04:00 Nasal Cannula 2.0 07/20/19 04:00 98.9 109 20 129/62 (84) 92 07/20/19 03:37 106 07/20/19 01:00 105 15 132/58 (82) 100 07/20/19 00:08 128/74 07/20/19 00:00 106 07/20/19 00:00 Nasal Cannula 2.0 07/20/19 00:00 98.7 106 20 128/74 (92) 100 07/19/19 23:00 107 20 145/71 (95) 100 07/19/19 22:00 113 23 134/62 (86) 100 07/19/19 21:17 116 150/72 07/19/19 21:00 114 22 150/72 (98) 100 07/19/19 20:00 99.1 115 24 111/66 (81) 100 07/19/19 20:00 Nasal Cannula 2.0 07/19/19 20:00 110 07/19/19 19:30 99 Room Air 21 07/19/19 19:00 115 22 130/59 (82) 100 07/19/19 18:30 129/59 07/19/19 18:19 113 27 144/67 (92) 100 07/19/19 18:07 162/79 07/19/19 18:00 109 26 162/79 (106) 100 07/19/19 17:00 107 17 164/82 (109) 100 07/19/19 16:00 112 07/19/19 16:00 99.3 107 18 138/72 (94) 100 07/19/19 16:00 Nasal Cannula 2.0 07/19/19 15:01 105 17 144/81 (102) 100 07/19/19 14:00 110 25 136/74 (94) 98 07/19/19 13:15 Nasal Cannula 2.0 07/19/19 13:00 108 23 144/69 (94) 100 07/19/19 12:00 99.1 112 23 158/81 (106) 99 07/19/19 12:00 Room Air 07/19/19 12:00 118 07/19/19 11:29 137/73 Intake and Output 07/19/19 07/20/19 19:00 07:00 Intake Total 230 ml 325 ml Output Total 30 ml 0 ml Balance 200 ml 325 ml Free Water 50 ml 40 ml IV Total 100 ml Tube Feeding 80 ml 255 ml Other 30 ml Output Urine Total 0 ml 0 ml Emesis 30 ml # Bowel Movements 3 General Appearance: WD/WN HEENT: normocephalic, atraumatic Respiratory/Chest: chest wall non-tender, crackles/rales Cardiovascular: normal peripheral pulses, normal rate Abdomen: normal bowel sounds, no organomegaly Extremities: no cyanosis Skin: no lesions Laboratory Tests 07/20/19 03:50: White Blood Count 9.5, Red Blood Count 3.65L, Hemoglobin 12.2L, Hematocrit 37.3L , Mean Corpuscular Volume 102H, Mean Corpuscular Hemoglobin 33.5H, Mean Corpuscular Hemoglobin Concent 32.7, Red Cell Distribution Width 14.7, Platelet Count 107L, Mean Platelet Volume 9.9, Neutrophils (%) (Auto) 79.8H, Lymphocytes (%) (Auto) 8.2L, Monocytes (%) (Auto) 9.5, Eosinophils (%) (Auto) 1.9, Basophils (%) (Auto) 0.6, Sodium Level 149H, Potassium Level 4.3, Chloride Level 107, Carbon Dioxide Level 30, Anion Gap 12, Blood Urea Nitrogen 76H, Creatinine 12.5H, Estimat Glomerular Filtration Rate 5.2, Glucose Level 135H, Calcium Level 9.0, Phosphorus Level 5.6H, Magnesium Level 2.4, Total Bilirubin 0.8, Aspartate Amino Transf (AST/SGOT) 12L, Alanine Aminotransferase (ALT/SGPT) 6L, Alkaline Phosphatase 111, Troponin I 0.072H, C-Reactive Protein, Quantitative 2.9H, Pro-B-Type Natriuretic Peptide 82731A, Total Protein 7.6, Albumin 2.9L, Globulin 4.7, Albumin/Globulin Ratio 0.6L Current Medications Medications (Trade) Dose Ordered Sig/David Route PRN Reason Start Time Stop Time Status Last Admin Dose Admin Acetaminophen (Tylenol) 650 mg Q4H PRN ORAL Fever 07/20/19 02:00 08/15/19 13:59 Acetaminophen (Tylenol) 650 mg Q4H PRN RECTAL FEVER 07/20/19 01:45 08/15/19 13:44 Albuterol/ Ipratropium (Albuterol/ Ipratropium) 3 ml Q4H PRN HHN Shortness of Breath 07/20/19 02:00 07/21/19 13:59 Carvedilol (Coreg) 12.5 mg EVERY 12 HOURS ORAL 07/20/19 09:00 08/17/19 09:59 07/20/19 08:26 Clonidine HCl (Catapres TTS-3) 1 patch QWEEK TDERMAL 07/26/19 11:00 08/18/19 10:59 Dextrose (Dextrose 50%) 25 ml Q30M PRN IV Hypoglycemia 07/20/19 01:30 08/15/19 13:59 Dextrose (Dextrose 50%) 50 ml Q30M PRN IV Hypoglycemia 07/20/19 01:30 08/15/19 13:59 Heparin Sodium (Porcine) (Heparin 5000 units/ml) 5,000 units EVERY 8 HOURS SUBQ 07/20/19 06:00 08/15/19 13:59 Hydralazine HCl (Apresoline) 10 mg Q4H PRN IV bp over 160 syst 07/20/19 02:00 08/15/19 13:59 Hydralazine HCl (Apresoline) 25 mg Q6HR ORAL 07/20/19 06:00 08/18/19 18:29 Levofloxacin 100 ml @ 100 mls/hr Q48H IVPB 07/21/19 15:00 07/24/19 14:59 Lorazepam (Ativan 2mg/ml 1ml) 2 mg Q2H PRN IV agitation 07/20/19 02:00 07/23/19 13:59 Metoclopramide HCl (Reglan) 10 mg Q6H PRN IVP Nausea & Vomiting 07/20/19 01:45 08/15/19 13:44 Morphine Sulfate (Morphine Sulfate) 4 mg Q4H PRN IVP Severe Pain (Pain Scale 7-10) 07/20/19 02:00 07/23/19 13:59 Nitroglycerin (Ntg) 1 patch Q24H TDERMAL 07/20/19 06:00 08/19/19 05:59 Pantoprazole (Protonix) 40 mg EVERY 12 HOURS IVP 07/20/19 09:00 08/15/19 20:59 07/20/19 08:23 Sennosides (Senokot) 8.6 mg BIDPRN PRN ORAL Constipation 07/20/19 13:45 08/15/19 13:44 Juan Carlos Soto MD Jul 20, 2019 11:04
--- NOTE | 2019-07-20 11:50 | Nephrology Progress Note ---
Assessment/Plan Problem List: (1) ESRD (end stage renal disease) (2) Acute respiratory failure (3) Cardiac arrest (4) Diabetes mellitus (5) Cardiomyopathy Assessment interoperative cardiac arrest Cardiomyopathy and Low ejfx ESRD- high K BP low at this time s/p Asystole in OR Plan self extubated 07/[address] eval TTS -3 for BP adjust coreg dose HD next 07/20 2D echo noted per orders Subjective ROS Limited/Unobtainable: No Constitutional: Reports: malaise Objective Objective Last 24 Hour Vital Signs Date Time Temp Pulse Resp B/P (MAP) Pulse Ox O2 Delivery O2 Flow Rate FiO2 07/20/19 08:26 105 136/63 07/20/19 08:07 109 07/20/19 08:00 Nasal Cannula 2.0 07/20/19 04:00 Nasal Cannula 2.0 07/20/19 04:00 98.9 109 20 129/62 (84) 92 07/20/19 03:37 106 07/20/19 01:00 105 15 132/58 (82) 100 07/20/19 00:08 128/74 07/20/19 00:00 106 07/20/19 00:00 Nasal Cannula 2.0 07/20/19 00:00 98.7 106 20 128/74 (92) 100 07/19/19 23:00 107 20 145/71 (95) 100 07/19/19 22:00 113 23 134/62 (86) 100 07/19/19 21:17 116 150/72 07/19/19 21:00 114 22 150/72 (98) 100 07/19/19 20:00 99.1 115 24 111/66 (81) 100 07/19/19 20:00 Nasal Cannula 2.0 07/19/19 20:00 110 07/19/19 19:30 99 Room Air 21 07/19/19 19:00 115 22 130/59 (82) 100 07/19/19 18:30 129/59 07/19/19 18:19 113 27 144/67 (92) 100 07/19/19 18:07 162/79 07/19/19 18:00 109 26 162/79 (106) 100 07/19/19 17:00 107 17 164/82 (109) 100 07/19/19 16:00 112 07/19/19 16:00 99.3 107 18 138/72 (94) 100 07/19/19 16:00 Nasal Cannula 2.0 07/19/19 15:01 105 17 144/81 (102) 100 07/19/19 14:00 110 25 136/74 (94) 98 07/19/19 13:15 Nasal Cannula 2.0 07/19/19 13:00 108 23 144/69 (94) 100 07/19/19 12:00 99.1 112 23 158/81 (106) 99 07/19/19 12:00 Room Air 07/19/19 12:00 118 Intake and Output 07/19/19 07/20/19 19:00 07:00 Intake Total 230 ml 325 ml Output Total 30 ml 0 ml Balance 200 ml 325 ml Free Water 50 ml 40 ml IV Total 100 ml Tube Feeding 80 ml 255 ml Other 30 ml Output Urine Total 0 ml 0 ml Emesis 30 ml # Bowel Movements 3 Laboratory Tests 07/20/19 03:50: White Blood Count 9.5, Red Blood Count 3.65L, Hemoglobin 12.2L, Hematocrit 37.3L , Mean Corpuscular Volume 102H, Mean Corpuscular Hemoglobin 33.5H, Mean Corpuscular Hemoglobin Concent 32.7, Red Cell Distribution Width 14.7, Platelet Count 107L, Mean Platelet Volume 9.9, Neutrophils (%) (Auto) 79.8H, Lymphocytes (%) (Auto) 8.2L, Monocytes (%) (Auto) 9.5, Eosinophils (%) (Auto) 1.9, Basophils (%) (Auto) 0.6, Sodium Level 149H, Potassium Level 4.3, Chloride Level 107, Carbon Dioxide Level 30, Anion Gap 12, Blood Urea Nitrogen 76H, Creatinine 12.5H, Estimat Glomerular Filtration Rate 5.2, Glucose Level 135H, Calcium Level 9.0, Phosphorus Level 5.6H, Magnesium Level 2.4, Total Bilirubin 0.8, Aspartate Amino Transf (AST/SGOT) 12L, Alanine Aminotransferase (ALT/SGPT) 6L, Alkaline Phosphatase 111, Troponin I 0.072H, C-Reactive Protein, Quantitative 2.9H, Pro-B-Type Natriuretic Peptide 26598H, Total Protein 7.6, Albumin 2.9L, Globulin 4.7, Albumin/Globulin Ratio 0.6L Height (Feet): 5 Height (Inches): 5.50 Weight (Pounds): 165 General Appearance: no apparent distress EENT: other - NGT Cardiovascular: tachycardia Respiratory/Chest: decreased breath sounds Abdomen: soft Danile Delgadillo MD Jul 20, 2019 11:50
[2019-07-20] MEDS ORDERED: Nitroglycerin Patch 0.4mg TDERMAL SCH (12:00)
[2019-07-20] MEDS: HydrALAZINE 25mg tab NG SCH ×2 (12:00→17:34)
--- NOTE | 2019-07-20 12:08 | Diagnostic Imaging Report ---
Indication: Dyspnea Comparison: 07/17/2019 A single view chest radiograph was obtained. Findings: Bilateral pleural effusions suspected. Heart size remains normal. Mild pulmonary vascular congestion suspected. NG tube is in good position. IMPRESSION: Mild pulmonary vascular congestion suspected. Bilateral pleural effusions.
--- NOTE | 2019-07-20 12:15 | NUR ---
NURSE NOTES: LATE ENTRY: 70 PT IN BED. VS HR 102, RR 20, BP 125/70. H.D HERE TO START H.D.
--- NOTE | 2019-07-20 12:31 | NUR ---
CASE MANAGEMENT: REVIEW 07/20/2019 SI:RESPIRATORY FAILURE.BUTTOCK LESION 98.9 109 20 129/30 NC 2L 92% NA 149 BUN 76 CREAT 12.5 PHOS 5.6 AST 12 ALT 6 TROP 0.072 BNP 58096 ALB 2.9 PLT 107 IS:APRESOLINE 25MG Q6H HEPARIN SUBQ Q8H COREG 25 MG Q12H PREVACID 30 MG Q12H NITRO PATCH Q24H NEB TX Q4H PRN APRESOLINE IV Q4H PRN ATIVAN IV Q2H MORPHINE IV Q4H PRN REGLAN IV Q6H PRN LEVAQUIN IV Q48H CATAPRES PATCH QWEEK SWALLOW EVAL TUBE FEEDINGS NEPRO @ 30MLS/HR HEMODIALYSIS CXR~ BILATERAL PLEURAL EFFUSIONS ~~~~SDU STATUS 2 WEST
--- NOTE | 2019-07-20 13:11 | NUR ---
BEDSIDE SWALLOW RE/EVALUATION: SWALLOW STATUS AND PLAN: PATIENT SEEN INITIALLY YESTERDAY AND HE PRESENTED WITH LETHARGY, SEVERE SILENT ASPIRATION RISKS AND NON/ORAL FEEDING MANAGEMENT WAS RECOMMENDED AT THAT TIME. TODAY, THE BSE WAS RE/ORDERED DUE TO PATIENTS INCREASED ALERTNESS, AGITATION/RESTLESSNESS, NEED FOR RESTRAINTS DUE TO RISK OF SELF/EXTUBATION OF NG TUBE. PATIENT CLEARED FOR ST INTERVENTION BY JOCE ENRIQUEZ. PATIENT ASSESSED WITH P.O. TRIALS OF PUREE, THIN LIQUIDS (IN 5 ML AMOUNTS VIA SPOON) AND ICE CHIPS. PATIENT WAS POSITIONED UPRIGHT IN BED, HIS VOLITIONAL COUGH WAS PRESENT BUT WEAK/NON/CLEARING. VOCAL QUALITY CLEAR. PATIENT CLEARLY CONFUSED, UNABLE TO COUNT TO TEN, NOT ORIENTED TO PLACE/YEAR/SITUATION, HE PRESENTED WITH MILD ORAL AND SUSPECTED PHARYNGEAL PHASE DYSPHAGIA WITH DELAYS IN ORAL PREPARATION/ORAL TRANSIT OF BOLUS AND MILD DELAY IN INITIATION OF PHARYNGEAL PHASE OF SWALLOW. CLEAR VOCAL QUALITY POST SWALLOW. NO OVERT S/S OF ASPIRATION WITH P.O. TRIALS THIS MORNING, BUT ASPIRATION RISK REMAINS DUE TO RECENT INTUBATION AND DECREASED MENTATION. TO MAXIMIZE SWALLOW SAFETY AND MINIMIZE RISK OF ASPIRATION IT IS RECOMMENDED THAT PATIENT PARTICIPATE IN P.O. WITH MODIFIED TEXTURE DIET: PUREE/THIN WITH NO STRAWS, TOTAL ASSIST WITH MEALS, MEALTIME PROTOCOL POSTED AT BEDSIDE, CRUSH CRUSHABLE MEDS AND PRESENT IN PUREE. GIVEN HIS CLINICAL PRESENTATION AT THIS TIME, HX OF RECENT INTUBATION, AND DECREASED MENTATION HE WOULD BENEFIT FROM PARTICIPATING IN INSTRUMENTAL SWALLOW EVALUATION DURING INPATIENT STAY.
[2019-07-20] MEDS ORDERED: Sennosides 8.6mg tab ORAL PRN (13:45)
--- NOTE | 2019-07-20 14:05 | NUR ---
NURSE NOTES: LATE ENTRY: H.D COMPLETE REMOVED 1L. VSS. PT REPOSITIONED.
--- NOTE | 2019-07-20 14:50 | Surgery Progress Note ---
Surgery Progress Note Subjective Procedure Performed 1. excision of scrotal lesion - aborted Additional Comments no acute events downgraded receiving HD able to follow simple commands but still confused Objective Last 24 Hour Vital Signs Date Time Temp Pulse Resp B/P (MAP) Pulse Ox O2 Delivery O2 Flow Rate FiO2 07/20/19 12:00 97.9 102 20 125/70 (88) 94 07/20/19 12:00 102 07/20/19 12:00 Nasal Cannula 2.0 07/20/19 08:26 105 136/63 07/20/19 08:07 109 07/20/19 08:00 97.6 109 18 136/63 (87) 95 07/20/19 08:00 Nasal Cannula 2.0 07/20/19 04:00 Nasal Cannula 2.0 07/20/19 04:00 98.9 109 20 129/62 (84) 92 07/20/19 03:37 106 07/20/19 01:00 105 15 132/58 (82) 100 07/20/19 00:08 128/74 07/20/19 00:00 106 07/20/19 00:00 Nasal Cannula 2.0 07/20/19 00:00 98.7 106 20 128/74 (92) 100 07/19/19 23:00 107 20 145/71 (95) 100 07/19/19 22:00 113 23 134/62 (86) 100 07/19/19 21:17 116 150/72 07/19/19 21:00 114 22 150/72 (98) 100 07/19/19 20:00 99.1 115 24 111/66 (81) 100 07/19/19 20:00 Nasal Cannula 2.0 07/19/19 20:00 110 07/19/19 19:30 99 Room Air 21 07/19/19 19:00 115 22 130/59 (82) 100 07/19/19 18:30 129/59 07/19/19 18:19 113 27 144/67 (92) 100 07/19/19 18:07 162/79 07/19/19 18:00 109 26 162/79 (106) 100 07/19/19 17:00 107 17 164/82 (109) 100 07/19/19 16:00 112 07/19/19 16:00 99.3 107 18 138/72 (94) 100 07/19/19 16:00 Nasal Cannula 2.0 07/19/19 15:01 105 17 144/81 (102) 100 I&O Intake and Output 07/19/19 07/20/19 19:00 07:00 Intake Total 230 ml 325 ml Output Total 30 ml 0 ml Balance 200 ml 325 ml Free Water 50 ml 40 ml IV Total 100 ml Tube Feeding 80 ml 255 ml Other 30 ml Output Urine Total 0 ml 0 ml Emesis 30 ml # Bowel Movements 3 Dressing: saturated Wound: clean Cardiovascular: RSR Respiratory: clear Abdomen: soft, non-tender, present bowel sounds Extremities: no edema, no tenderness, no cyanosis Laboratory Tests Test 07/20/19 03:50 White Blood Count 9.5 K/UL (4.8-10.8) Red Blood Count 3.65 M/UL (4.70-6.10) L Hemoglobin 12.2 G/DL (14.2-18.0) L Hematocrit 37.3 % (42.0-52.0) L Mean Corpuscular Volume 102 FL (80-99) H Mean Corpuscular Hemoglobin 33.5 PG (27.0-31.0) H Mean Corpuscular Hemoglobin Concent 32.7 G/DL (32.0-36.0) Red Cell Distribution Width 14.7 % (11.6-14.8) Platelet Count 107 K/UL (150-450) L Mean Platelet Volume 9.9 FL (6.5-10.1) Neutrophils (%) (Auto) 79.8 % (45.0-75.0) H Lymphocytes (%) (Auto) 8.2 % (20.0-45.0) L Monocytes (%) (Auto) 9.5 % (1.0-10.0) Eosinophils (%) (Auto) 1.9 % (0.0-3.0) Basophils (%) (Auto) 0.6 % (0.0-2.0) Sodium Level 149 MMOL/L (136-145) H Potassium Level 4.3 MMOL/L (3.5-5.1) Chloride Level 107 MMOL/L (98-107) Carbon Dioxide Level 30 MMOL/L (21-32) Anion Gap 12 mmol/L (5-15) Blood Urea Nitrogen 76 mg/dL (7-18) H Creatinine 12.5 MG/DL (0.55-1.30) H Estimat Glomerular Filtration Rate 5.2 mL/min (>60) Glucose Level 135 MG/DL (74-106) H Calcium Level 9.0 MG/DL (8.5-10.1) Phosphorus Level 5.6 MG/DL (2.5-4.9) H Magnesium Level 2.4 MG/DL (1.8-2.4) Total Bilirubin 0.8 MG/DL (0.2-1.0) Aspartate Amino Transf (AST/SGOT) 12 U/L (15-37) L Alanine Aminotransferase (ALT/SGPT) 6 U/L (12-78) L Alkaline Phosphatase 111 U/L (46-116) Troponin I 0.072 ng/mL (0.000-0.056) C-Reactive Protein, Quantitative 2.9 mg/dL (0.00-0.90) H Pro-B-Type Natriuretic Peptide 66238 pg/mL (0-125) H Total Protein 7.6 G/DL (6.4-8.2) Albumin 2.9 G/DL (3.4-5.0) L Globulin 4.7 g/dL Albumin/Globulin Ratio 0.6 (1.0-2.7) L Plan Problems: (1) Scrotal lesion Assessment & Plan: Continue with 3 times daily dressings okay for bacitracin and Xeroform gauze (2) Cardiac arrest Assessment & Plan: Etiology unknown pending echo appreciate cardiology input Continue current care extubated abg okay start clear liquids thank you Thank you will follow with recommendations Zenon Galloway Jul 20, 2019 14:50
--- NOTE | 2019-07-20 14:58 | Internal Med Progress Note ---
Subjective Physician Name Zuhair Singleton Attending Physician Zuhair Singleton MD Current Medications Medications (Trade) Dose Ordered Sig/David Route PRN Reason Start Time Stop Time Status Last Admin Dose Admin Acetaminophen (Tylenol) 650 mg Q4H PRN ORAL Fever 07/20/19 02:00 08/15/19 13:59 Acetaminophen (Tylenol) 650 mg Q4H PRN RECTAL FEVER 07/20/19 01:45 08/15/19 13:44 Albuterol/ Ipratropium (Albuterol/ Ipratropium) 3 ml Q4H PRN HHN Shortness of Breath 07/20/19 02:00 07/21/19 13:59 Carvedilol (Coreg) 25 mg EVERY 12 HOURS NG 07/20/19 21:00 08/17/19 09:59 Clonidine HCl (Catapres TTS-3) 1 patch QWEEK TDERMAL 07/26/19 11:00 08/18/19 10:59 Dextrose (Dextrose 50%) 25 ml Q30M PRN IV Hypoglycemia 07/20/19 01:30 08/15/19 13:59 Dextrose (Dextrose 50%) 50 ml Q30M PRN IV Hypoglycemia 07/20/19 01:30 08/15/19 13:59 Heparin Sodium (Porcine) (Heparin 5000 units/ml) 5,000 units EVERY 8 HOURS SUBQ 07/20/19 06:00 08/15/19 13:59 Hydralazine HCl (Apresoline) 10 mg Q4H PRN IV bp over 160 syst 07/20/19 02:00 08/15/19 13:59 Hydralazine HCl (Apresoline) 25 mg Q6HR NG 07/20/19 12:00 08/18/19 18:29 Lansoprazole (Prevacid) 30 mg Q12HR NG 07/20/19 21:00 08/19/19 20:59 Levofloxacin 100 ml @ 100 mls/hr Q48H IVPB 07/21/19 15:00 07/24/19 14:59 Lorazepam (Ativan 2mg/ml 1ml) 2 mg Q2H PRN IV agitation 07/20/19 02:00 07/23/19 13:59 Metoclopramide HCl (Reglan) 10 mg Q6H PRN IVP Nausea & Vomiting 07/20/19 01:45 08/15/19 13:44 Morphine Sulfate (Morphine Sulfate) 4 mg Q4H PRN IVP Severe Pain (Pain Scale 7-10) 07/20/19 02:00 07/23/19 13:59 Nitroglycerin (Ntg) 1 patch Q24H TDERMAL 07/20/19 06:00 08/19/19 05:59 Sennosides (Senokot) 8.6 mg BIDPRN PRN ORAL Constipation 07/20/19 13:45 08/15/19 13:44 Allergies: Coded Allergies: LISINOPRIL (Verified Allergy, Severe, Shortness of Breath, 07/02/19) THROAT SWELLS UP PENICILLINS (Verified Allergy, Severe, throat swelling, 07/17/19) tolerated Ancef x1 07/16/19 Uncoded Allergies: shellfish (Allergy, Severe, 02/06/19) shortness of breath, vomiting, throat swelling Subjective In [facility], more responsive, open his eyes, squeezing hands, however cannot follow commands, dialysis at the bedside. Objective Last Vital Signs Date Time Temp Pulse Resp B/P (MAP) Pulse Ox O2 Delivery O2 Flow Rate FiO2 07/20/19 12:00 97.9 102 20 125/70 (88) 94 07/20/19 12:00 Nasal Cannula 2.0 07/19/19 19:30 21 Laboratory Tests Test 07/20/19 03:50 White Blood Count 9.5 K/UL (4.8-10.8) Red Blood Count 3.65 M/UL (4.70-6.10) L Hemoglobin 12.2 G/DL (14.2-18.0) L Hematocrit 37.3 % (42.0-52.0) L Mean Corpuscular Volume 102 FL (80-99) H Mean Corpuscular Hemoglobin 33.5 PG (27.0-31.0) H Mean Corpuscular Hemoglobin Concent 32.7 G/DL (32.0-36.0) Red Cell Distribution Width 14.7 % (11.6-14.8) Platelet Count 107 K/UL (150-450) L Mean Platelet Volume 9.9 FL (6.5-10.1) Neutrophils (%) (Auto) 79.8 % (45.0-75.0) H Lymphocytes (%) (Auto) 8.2 % (20.0-45.0) L Monocytes (%) (Auto) 9.5 % (1.0-10.0) Eosinophils (%) (Auto) 1.9 % (0.0-3.0) Basophils (%) (Auto) 0.6 % (0.0-2.0) Sodium Level 149 MMOL/L (136-145) H Potassium Level 4.3 MMOL/L (3.5-5.1) Chloride Level 107 MMOL/L (98-107) Carbon Dioxide Level 30 MMOL/L (21-32) Anion Gap 12 mmol/L (5-15) Blood Urea Nitrogen 76 mg/dL (7-18) H Creatinine 12.5 MG/DL (0.55-1.30) H Estimat Glomerular Filtration Rate 5.2 mL/min (>60) Glucose Level 135 MG/DL (74-106) H Calcium Level 9.0 MG/DL (8.5-10.1) Phosphorus Level 5.6 MG/DL (2.5-4.9) H Magnesium Level 2.4 MG/DL (1.8-2.4) Total Bilirubin 0.8 MG/DL (0.2-1.0) Aspartate Amino Transf (AST/SGOT) 12 U/L (15-37) L Alanine Aminotransferase (ALT/SGPT) 6 U/L (12-78) L Alkaline Phosphatase 111 U/L (46-116) Troponin I 0.072 ng/mL (0.000-0.056) C-Reactive Protein, Quantitative 2.9 mg/dL (0.00-0.90) H Pro-B-Type Natriuretic Peptide 78023 pg/mL (0-125) H Total Protein 7.6 G/DL (6.4-8.2) Albumin 2.9 G/DL (3.4-5.0) L Globulin 4.7 g/dL Albumin/Globulin Ratio 0.6 (1.0-2.7) L Intake and Output 07/19/19 07/20/19 19:00 07:00 Intake Total 230 ml 325 ml Output Total 30 ml 0 ml Balance 200 ml 325 ml Free Water 50 ml 40 ml IV Total 100 ml Tube Feeding 80 ml 255 ml Other 30 ml Output Urine Total 0 ml 0 ml Emesis 30 ml # Bowel Movements 3 Objective General: No acute distress, more responsive, open his eyes. HEENT: NCAT, sclera anicteric, PERRL, EOMI, NT tube noted. Neck: Supple, no significant jugular venous distention, Lungs: Fair respiratory effort, decreased air in the bases, no Wheeze or Rales. Heart: Regular rate and rhythm, normal S1/S2, no murmurs Abdomen: soft, nontender, nondistended. Normoactive bowel sounds, mild obesity. Extremities: No Cyanosis , clubbing or edema. AV fistula the left upper extremity. Neuro: A&O x 1, moves all extremities spontaneously, cannot follow commands. Skin: warm, no rashes or lesions Psych: Normal mood and affect Assessment/Plan Assessment/Plan 1. Status cardiac arrest, asystolic in origin. 2. Reported history of dilated cardiomyopathy that had improved in October 2018. 3. Hypertension, poorly controlled. 4. Hyperlipidemia. 5. End-stage renal disease, on hemodialysis. 6. History of systolic heart failure previously. 7. Lisinopril and penicillin allergy. 8. Diabetes mellitus. 9. Secondary hyperparathyroidism. 10. History of asthma. 11. Anemia, secondary to end-stage renal disease. 12. post arrest evidence for cardiomyopathy 13. Excision of scrotal lesion - aborted. Plan; Follow-up with laboratory in the morning as well as cultures. Continue on antibiotics: Levaquin Hemodialysis at the bedside. DVT prophylaxis with heparin subcu CODE STATUS full code. Follow-up with Dr. Soto from pulmonary critical care. Follow-up with Dr. Riddle from surgery. Follow-up with Dr. Quiroz from cardiology. Consider PT mobility, Out of bed to the chair. Zuhair Singleton MD Jul 20, 2019 14:58
--- NOTE | 2019-07-20 16:00 | NUR ---
NURSE NOTES: TURNED OFF TUBE FEEDING FOR NOW, PT SPITTING UP, NO RESIDUAL. HOB>30. WILL CONTINUE TO MONITOR
--- NOTE | 2019-07-20 16:15 | Infectious Diseases Prog Note ---
Assessment/Plan Assessment/Plan Assessment: Probable aspiration PNA -07/20 CXR: Mild pulmonary vascular congestion suspected. Bilateral pleural effusions. -07/17 CXR: Bilateral pleural effusion and mild interstitial congestion and hazy parenchymal opacity present. cardiac arrest asystole during surgical procedure -07/16 CXR: pulmonary edema Non healing scrotal wound; bx showed: ruptured epidermal inclusion cyst with associated abscess formation -07/16 sp attempted excision but procedure aborted due to cardiac arrest VDRF 07/16; extubated 07/18 Afebrile Mild leukocytosis, SP ESRD on HD via L arm AVF Dm2 HTN internal hemorrhoids Plan: -Cont PO Levaquin #4/5 to cover for probable aspiration PNA -07/16 SP Ancef x1 -f/u cx -Monitor CBC/CMP, temperatures -aspiration precautions -wound care per surgical team -Sx, Neprho, pulm f/u Thank you for this consultation. Will continue to follow along with you. Discussed with RN Subjective Allergies: Coded Allergies: LISINOPRIL (Verified Allergy, Severe, Shortness of Breath, 07/02/19) THROAT SWELLS UP PENICILLINS (Verified Allergy, Severe, throat swelling, 07/17/19) tolerated Ancef x1 07/16/19 Uncoded Allergies: shellfish (Allergy, Severe, 02/06/19) shortness of breath, vomiting, throat swelling Subjective afebrile no leukocytosis at 2l NC transferred out ICU to [facility] Objective Vital Signs Last 24 Hour Vital Signs Date Time Temp Pulse Resp B/P (MAP) Pulse Ox O2 Delivery O2 Flow Rate FiO2 07/20/19 12:00 97.9 102 20 125/70 (88) 94 07/20/19 12:00 102 07/20/19 12:00 Nasal Cannula 2.0 07/20/19 08:26 105 136/63 07/20/19 08:07 109 07/20/19 08:00 97.6 109 18 136/63 (87) 95 07/20/19 08:00 Nasal Cannula 2.0 07/20/19 04:00 Nasal Cannula 2.0 07/20/19 04:00 98.9 109 20 129/62 (84) 92 07/20/19 03:37 106 07/20/19 01:00 105 15 132/58 (82) 100 07/20/19 00:08 128/74 07/20/19 00:00 106 07/20/19 00:00 Nasal Cannula 2.0 07/20/19 00:00 98.7 106 20 128/74 (92) 100 07/19/19 23:00 107 20 145/71 (95) 100 07/19/19 22:00 113 23 134/62 (86) 100 07/19/19 21:17 116 150/72 07/19/19 21:00 114 22 150/72 (98) 100 07/19/19 20:00 99.1 115 24 111/66 (81) 100 07/19/19 20:00 Nasal Cannula 2.0 07/19/19 20:00 110 07/19/19 19:30 99 Room Air 21 07/19/19 19:00 115 22 130/59 (82) 100 07/19/19 18:30 129/59 07/19/19 18:19 113 27 144/67 (92) 100 07/19/19 18:07 162/79 07/19/19 18:00 109 26 162/79 (106) 100 07/19/19 17:00 107 17 164/82 (109) 100 Height (Feet): 5 Height (Inches): 5.50 Weight (Pounds): 165 Objective General Appearance: no apparent distress Head: normocephalic EENT: ETT in place Neck: supple Respiratory: normal breath sounds, no respiratory distress, other - intubated Cardiovascular: normal rate Gastrointestinal: normal inspection, non tender, soft, normal bowel sounds, non -distended Neurologic: oriented x3, normal inspection Skin: normal inspection, normal color, no rash, warm/dry, palpation normal, well hydrated scrotal wound packed Laboratory Tests Test 07/20/19 03:50 White Blood Count 9.5 K/UL (4.8-10.8) Red Blood Count 3.65 M/UL (4.70-6.10) L Hemoglobin 12.2 G/DL (14.2-18.0) L Hematocrit 37.3 % (42.0-52.0) L Mean Corpuscular Volume 102 FL (80-99) H Mean Corpuscular Hemoglobin 33.5 PG (27.0-31.0) H Mean Corpuscular Hemoglobin Concent 32.7 G/DL (32.0-36.0) Red Cell Distribution Width 14.7 % (11.6-14.8) Platelet Count 107 K/UL (150-450) L Mean Platelet Volume 9.9 FL (6.5-10.1) Neutrophils (%) (Auto) 79.8 % (45.0-75.0) H Lymphocytes (%) (Auto) 8.2 % (20.0-45.0) L Monocytes (%) (Auto) 9.5 % (1.0-10.0) Eosinophils (%) (Auto) 1.9 % (0.0-3.0) Basophils (%) (Auto) 0.6 % (0.0-2.0) Sodium Level 149 MMOL/L (136-145) H Potassium Level 4.3 MMOL/L (3.5-5.1) Chloride Level 107 MMOL/L (98-107) Carbon Dioxide Level 30 MMOL/L (21-32) Anion Gap 12 mmol/L (5-15) Blood Urea Nitrogen 76 mg/dL (7-18) H Creatinine 12.5 MG/DL (0.55-1.30) H Estimat Glomerular Filtration Rate 5.2 mL/min (>60) Glucose Level 135 MG/DL (74-106) H Calcium Level 9.0 MG/DL (8.5-10.1) Phosphorus Level 5.6 MG/DL (2.5-4.9) H Magnesium Level 2.4 MG/DL (1.8-2.4) Total Bilirubin 0.8 MG/DL (0.2-1.0) Aspartate Amino Transf (AST/SGOT) 12 U/L (15-37) L Alanine Aminotransferase (ALT/SGPT) 6 U/L (12-78) L Alkaline Phosphatase 111 U/L (46-116) Troponin I 0.072 ng/mL (0.000-0.056) C-Reactive Protein, Quantitative 2.9 mg/dL (0.00-0.90) H Pro-B-Type Natriuretic Peptide 82225 pg/mL (0-125) H Total Protein 7.6 G/DL (6.4-8.2) Albumin 2.9 G/DL (3.4-5.0) L Globulin 4.7 g/dL Albumin/Globulin Ratio 0.6 (1.0-2.7) L Current Medications Medications (Trade) Dose Ordered Sig/David Route PRN Reason Start Time Stop Time Status Last Admin Dose Admin Acetaminophen (Tylenol) 650 mg Q4H PRN ORAL Fever 07/20/19 02:00 08/15/19 13:59 Acetaminophen (Tylenol) 650 mg Q4H PRN RECTAL FEVER 07/20/19 01:45 08/15/19 13:44 Albuterol/ Ipratropium (Albuterol/ Ipratropium) 3 ml Q4H PRN HHN Shortness of Breath 07/20/19 02:00 07/21/19 13:59 Carvedilol (Coreg) 25 mg EVERY 12 HOURS NG 07/20/19 21:00 08/17/19 09:59 Clonidine HCl (Catapres TTS-3) 1 patch QWEEK TDERMAL 07/26/19 11:00 08/18/19 10:59 Dextrose (Dextrose 50%) 25 ml Q30M PRN IV Hypoglycemia 07/20/19 01:30 08/15/19 13:59 Dextrose (Dextrose 50%) 50 ml Q30M PRN IV Hypoglycemia 07/20/19 01:30 08/15/19 13:59 Heparin Sodium (Porcine) (Heparin 5000 units/ml) 5,000 units EVERY 8 HOURS SUBQ 07/20/19 06:00 08/15/19 13:59 Hydralazine HCl (Apresoline) 10 mg Q4H PRN IV bp over 160 syst 07/20/19 02:00 08/15/19 13:59 Hydralazine HCl (Apresoline) 25 mg Q6HR NG 07/20/19 12:00 08/18/19 18:29 Lansoprazole (Prevacid) 30 mg Q12HR NG 07/20/19 21:00 08/19/19 20:59 Levofloxacin 100 ml @ 100 mls/hr Q48H IVPB 07/21/19 15:00 07/24/19 14:59 Lorazepam (Ativan 2mg/ml 1ml) 2 mg Q2H PRN IV agitation 07/20/19 02:00 07/23/19 13:59 Metoclopramide HCl (Reglan) 10 mg Q6H PRN IVP Nausea & Vomiting 07/20/19 01:45 08/15/19 13:44 Morphine Sulfate (Morphine Sulfate) 4 mg Q4H PRN IVP Severe Pain (Pain Scale 7-10) 07/20/19 02:00 07/23/19 13:59 Nitroglycerin (Ntg) 1 patch Q24H TDERMAL 07/20/19 06:00 08/19/19 05:59 Sennosides (Senokot) 8.6 mg BIDPRN PRN ORAL Constipation 07/20/19 13:45 08/15/19 13:44 Lee Ann Hyatt M.D. Jul 20, 2019 16:15
--- NOTE | 2019-07-20 18:34 | Cardiology Progress Note ---
Assessment/Plan Assessment/Plan 1. Status cardiac arrest, asystolic in origin. 2. Reported history of dilated cardiomyopathy that had improved in October 2018. 3. Hypertension, poorly controlled. 4. Hyperlipidemia. 5. End-stage renal disease, on hemodialysis. 6. History of systolic heart failure previously. 7. Lisinopril and penicillin allergy. 8. Diabetes mellitus. 9. Secondary hyperparathyroidism. 10. History of asthma. 11. Anemia, secondary to end-stage renal disease. 12. post arrest evidence for cardiomyopathy minro trop abn with out a peak or lorri to suggest acs an in della settign of renal failure is not specific tele personally reviewed labs noted mentation les agitated bp increased cannot take acei due to allergy s/p dialysis overall better keep supportive care will need to repeat echo in future to see if any recovery to suggest stress induced although wall motion not typical of tak[place]ubos dvt ppx heparin rn reported on initial admission to icu pt with food vomit post arrest , aspiration may be a possibility ? trop still min abn isordil and hydralazine for cm cxr shows effusion will need more uf if bp allows may consider cath ? in futueri Subjective Cardiovascular: Denies: chest pain, lightheadedness Respiratory: Denies: shortness of breath Gastrointestinal/Abdominal: Denies: abdominal pain Genitourinary: Denies: burning Objective Last 24 Hour Vital Signs Date Time Temp Pulse Resp B/P (MAP) Pulse Ox O2 Delivery O2 Flow Rate FiO2 07/20/19 17:34 93/77 07/20/19 16:00 98.0 118 18 93/70 (78) 95 07/20/19 16:00 Nasal Cannula 2.0 07/20/19 16:00 110 07/20/19 12:00 97.9 102 20 125/70 (88) 94 07/20/19 12:00 102 07/20/19 12:00 Nasal Cannula 2.0 07/20/19 08:26 105 136/63 07/20/19 08:07 109 07/20/19 08:00 97.6 109 18 136/63 (87) 95 07/20/19 08:00 Nasal Cannula 2.0 07/20/19 04:00 Nasal Cannula 2.0 07/20/19 04:00 98.9 109 20 129/62 (84) 92 07/20/19 03:37 106 07/20/19 01:00 105 15 132/58 (82) 100 07/20/19 00:08 128/74 07/20/19 00:00 106 07/20/19 00:00 Nasal Cannula 2.0 07/20/19 00:00 98.7 106 20 128/74 (92) 100 07/19/19 23:00 107 20 145/71 (95) 100 07/19/19 22:00 113 23 134/62 (86) 100 07/19/19 21:17 116 150/72 07/19/19 21:00 114 22 150/72 (98) 100 07/19/19 20:00 99.1 115 24 111/66 (81) 100 07/19/19 20:00 Nasal Cannula 2.0 07/19/19 20:00 110 07/19/19 19:30 99 Room Air 21 07/19/19 19:00 115 22 130/59 (82) 100 General Appearance: other - looks confused Neck: supple Cardiovascular: normal rate Respiratory/Chest: rhonchi - left Abdomen: normal bowel sounds, non tender, soft Extremities: no swelling Intake and Output 07/19/19 07/20/19 19:00 07:00 Intake Total 230 ml 325 ml Output Total 30 ml 0 ml Balance 200 ml 325 ml Free Water 50 ml 40 ml IV Total 100 ml Tube Feeding 80 ml 255 ml Other 30 ml Output Urine Total 0 ml 0 ml Emesis 30 ml # Bowel Movements 3 Laboratory Tests Test 07/20/19 03:50 White Blood Count 9.5 K/UL (4.8-10.8) Red Blood Count 3.65 M/UL (4.70-6.10) L Hemoglobin 12.2 G/DL (14.2-18.0) L Hematocrit 37.3 % (42.0-52.0) L Mean Corpuscular Volume 102 FL (80-99) H Mean Corpuscular Hemoglobin 33.5 PG (27.0-31.0) H Mean Corpuscular Hemoglobin Concent 32.7 G/DL (32.0-36.0) Red Cell Distribution Width 14.7 % (11.6-14.8) Platelet Count 107 K/UL (150-450) L Mean Platelet Volume 9.9 FL (6.5-10.1) Neutrophils (%) (Auto) 79.8 % (45.0-75.0) H Lymphocytes (%) (Auto) 8.2 % (20.0-45.0) L Monocytes (%) (Auto) 9.5 % (1.0-10.0) Eosinophils (%) (Auto) 1.9 % (0.0-3.0) Basophils (%) (Auto) 0.6 % (0.0-2.0) Sodium Level 149 MMOL/L (136-145) H Potassium Level 4.3 MMOL/L (3.5-5.1) Chloride Level 107 MMOL/L (98-107) Carbon Dioxide Level 30 MMOL/L (21-32) Anion Gap 12 mmol/L (5-15) Blood Urea Nitrogen 76 mg/dL (7-18) H Creatinine 12.5 MG/DL (0.55-1.30) H Estimat Glomerular Filtration Rate 5.2 mL/min (>60) Glucose Level 135 MG/DL (74-106) H Calcium Level 9.0 MG/DL (8.5-10.1) Phosphorus Level 5.6 MG/DL (2.5-4.9) H Magnesium Level 2.4 MG/DL (1.8-2.4) Total Bilirubin 0.8 MG/DL (0.2-1.0) Aspartate Amino Transf (AST/SGOT) 12 U/L (15-37) L Alanine Aminotransferase (ALT/SGPT) 6 U/L (12-78) L Alkaline Phosphatase 111 U/L (46-116) Troponin I 0.072 ng/mL (0.000-0.056) C-Reactive Protein, Quantitative 2.9 mg/dL (0.00-0.90) H Pro-B-Type Natriuretic Peptide 97721 pg/mL (0-125) H Total Protein 7.6 G/DL (6.4-8.2) Albumin 2.9 G/DL (3.4-5.0) L Globulin 4.7 g/dL Albumin/Globulin Ratio 0.6 (1.0-2.7) L Emmanuel Cortés MD Jul 20, 2019 18:34
--- NOTE | 2019-07-20 19:30 | NUR ---
NURSE NOTES: Report received from JOCE Shah. 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 2L with no SOB. NGT on R nares, feeding on hold due to previous episodes of n/v. No IV access noted, dc per pt on previous shift. Wound dressing noted on scrotum area, dry and intact. Left UA shunt noted, thrill and bruit noted. Bed in the lowest position. Side rails up x3. Bilateral writs restraints noted, skin intact, pulse noted, cap refill noted. Will continue to monitor.
--- NOTE | 2019-07-20 19:43 | NUR ---
HAND-OFF: Report given to EILEEN HOBSON.PT IN NO ACUTE DISTRESS.
[2019-07-20] MEDS: Carvedilol 25mg Tab NG SCH (21:31)
--- NOTE | 2019-07-20 22:00 | NUR ---
NURSE NOTES: Tried to put new IV but pt became agitated and refused, explained risks and benefits, still refused, pt confused. Will try again. No acute distress noted at this time. Bed bath given. Will continue to monitor.
[2019-07-21] VITALS: BP 114/62
--- NOTE | 2019-07-21 03:00 | NUR ---
NURSE NOTES: Pt sleeping in the bed. No signs of n/v noted, tube feeding started and increased to 25cc/hr. New IV on R FA 20G, asymptomatic. Will continue to monitor.
[2019-07-21 04:00] VITALS: BP 143/75
[2019-07-21] MEDS: Nitroglycerin Patch 0.4mg TDERMAL SCH (05:23)
[2019-07-21] MEDS: Heparin 5000 units/ml inj SUBQ SCH ×3 (05:23→22:00)
[2019-07-21] MEDS: HydrALAZINE 25mg tab NG SCH ×4 (05:23→18:23)
--- NOTE | 2019-07-21 05:46 | NUR ---
NURSE NOTES: Noted pt trying to get out of bed and tried pull tubings, mildly restless. Will continue to monitor.
[2019-07-21 06:01] LABS: BASOPHILS % (AUTO) 0.3 % (0.0-2.0); EOSINOPHILS % (AUTO) 3.7 % (0.0-3.0); HEMATOCRIT 39.8 % (42.0-52.0); HEMOGLOBIN 12.9 G/DL (14.2-18.0); LYMPHOCYTES % (AUTO) 9.4 % (20.0-45.0); MEAN CORPUSCULAR VOLUME 104 FL (80-99); MONOCYTES % (AUTO) 8.4 % (1.0-10.0); NEUTROPHILS % (AUTO) 78.2 % (45.0-75.0); PLATELET COUNT 100 K/UL (150-450); RED BLOOD COUNT 3.81 M/UL (4.70-6.10); RED CELL DISTRIBUTION WIDTH 14.7 % (11.6-14.8); WHITE BLOOD COUNT 8.6 K/UL (4.8-10.8)
[2019-07-21 06:39] LABS: ALANINE AMINOTRANSFERASE 8 U/L (12-78); ALBUMIN 3.3 G/DL (3.4-5.0); ALBUMIN/GLOBULIN RATIO 0.6 (1.0-2.7); ALKALINE PHOSPHATASE 119 U/L (46-116); ANION GAP 8 mmol/L (5-15); ASPARTATE AMINO TRANSFERASE 16 U/L (15-37); BLOOD UREA NITROGEN 54 mg/dL (7-18); CARBON DIOXIDE 36 MMOL/L (21-32); CHLORIDE 102 MMOL/L (98-107); CREATININE 9.8 MG/DL (0.55-1.30); PHOSPHORUS 5.3 MG/DL (2.5-4.9); POTASSIUM 4.2 MMOL/L (3.5-5.1); SODIUM 146 MMOL/L (136-145)
--- NOTE | 2019-07-21 07:20 | NUR ---
HAND-OFF: Report given to JOCE Strauss. No distress noted at this time.
[2019-07-21 08:00] VITALS: BP 96/55
--- NOTE | 2019-07-21 08:00 | NUR ---
NURSE NOTES: Received change of shift report from Comfort HOBSON. Pt is asleep, opens eyes to touch, does not respond verbally when asked basic questions, pt attempts to dangle legs from bed and remove NGT. Per night monitor RN, ptt pulled out peripheral IV access. Bilateral soft wrist restraints are in place for pt safety; with skin integrity at restraint site within normal limits. Currently on 2L of oxygen via nasal cannula, at 100% O2Sat. ST per Tele monitor, HR 102. Temp 99F axillary. New peripheral IV access is present on right FA #20G, saline locked, patent/intact. NGT with feeding Nepro currently at 25ml/hr. Per night monitor RN, feeding was placed on hold due to episode of vomiting from previous shift and resumed at midnight. Currently no residual when checked. Pt is anuric. Surgical wound dressing is present on right scrotum, xeroform/gauze covered with abd pad/silk tape. Bilateral SCDs are in place on lower extremities for DVT prophylaxis. HOB is at 30degrees, bed locked, three side rails up. Will continue with plan of care.
[2019-07-21] MEDS: Carvedilol 25mg Tab NG SCH ×2 (09:00→21:00)
--- NOTE | 2019-07-21 09:43 | Pulmonology Progress Note ---
Assessment/Plan Assessment/Plan Pulmonary Progress Note Assessment/Plan Problems: (1) Cardiac arrest (2) Acute respiratory failure (3) ESRD (end stage renal disease) (4) Diabetes mellitus (5) Cardiomyopathy (6) Hypertension Assessment/Plan swallow study HD by nephrology monitor BP titrate cardiac meds sliding scale diabetic diet Subjective ROS Limited/Unobtainable: No Interval Events: awake, has NG tube Allergies: Coded Allergies: LISINOPRIL (Verified Allergy, Severe, Shortness of Breath, 07/02/19) THROAT SWELLS UP PENICILLINS (Verified Allergy, Severe, throat swelling, 07/17/19) tolerated Ancef x1 07/16/19 Uncoded Allergies: shellfish (Allergy, Severe, 02/06/19) shortness of breath, vomiting, throat swelling Objective Vital Signs Noted General Appearance: WD/WN HEENT: normocephalic, atraumatic Respiratory/Chest: chest wall non-tender, crackles/rales Cardiovascular: normal peripheral pulses, normal rate Abdomen: normal bowel sounds, no organomegaly Extremities: no cyanosis Skin: no lesions Laboratory Tests Noted Current Medications Medications (Trade) Dose Ordered Sig/David Route PRN Reason Start Time Stop Time Status Last Admin Dose Admin Acetaminophen (Tylenol) 650 mg Q4H PRN ORAL Fever 07/20/19 02:00 08/15/19 13:59 Acetaminophen (Tylenol) 650 mg Q4H PRN RECTAL FEVER 07/20/19 01:45 08/15/19 13:44 Albuterol/ Ipratropium (Albuterol/ Ipratropium) 3 ml Q4H PRN HHN Shortness of Breath 07/20/19 02:00 07/21/19 13:59 Carvedilol (Coreg) 12.5 mg EVERY 12 HOURS ORAL 07/20/19 09:00 08/17/19 09:59 07/20/19 08:26 Clonidine HCl (Catapres TTS-3) 1 patch QWEEK TDERMAL 07/26/19 11:00 08/18/19 10:59 Dextrose (Dextrose 50%) 25 ml Q30M PRN IV Hypoglycemia 07/20/19 01:30 08/15/19 13:59 Dextrose (Dextrose 50%) 50 ml Q30M PRN IV Hypoglycemia 07/20/19 01:30 08/15/19 13:59 Heparin Sodium (Porcine) (Heparin 5000 units/ml) 5,000 units EVERY 8 HOURS SUBQ 07/20/19 06:00 08/15/19 13:59 Hydralazine HCl (Apresoline) 10 mg Q4H PRN IV bp over 160 syst 07/20/19 02:00 08/15/19 13:59 Hydralazine HCl (Apresoline) 25 mg Q6HR ORAL 07/20/19 06:00 08/18/19 18:29 Levofloxacin 100 ml @ 100 mls/hr Q48H IVPB 07/21/19 15:00 07/24/19 14:59 Lorazepam (Ativan 2mg/ml 1ml) 2 mg Q2H PRN IV agitation 07/20/19 02:00 07/23/19 13:59 Metoclopramide HCl (Reglan) 10 mg Q6H PRN IVP Nausea & Vomiting 07/20/19 01:45 08/15/19 13:44 Morphine Sulfate (Morphine Sulfate) 4 mg Q4H PRN IVP Severe Pain (Pain Scale 7-10) 07/20/19 02:00 07/23/19 13:59 Nitroglycerin (Ntg) 1 patch Q24H TDERMAL 07/20/19 06:00 08/19/19 05:59 Pantoprazole (Protonix) 40 mg EVERY 12 HOURS IVP 07/20/19 09:00 08/15/19 20:59 07/20/19 08:23 Sennosides (Senokot) 8.6 mg BIDPRN PRN ORAL Constipation 07/20/19 13:45 08/15/19 13:44 Subjective ROS Limited/Unobtainable: No Allergies: Coded Allergies: LISINOPRIL (Verified Allergy, Severe, Shortness of Breath, 07/02/19) THROAT SWELLS UP PENICILLINS (Verified Allergy, Severe, throat swelling, 07/17/19) tolerated Ancef x1 07/16/19 Uncoded Allergies: shellfish (Allergy, Severe, 02/06/19) shortness of breath, vomiting, throat swelling Objective Last 24 Hour Vital Signs Date Time Temp Pulse Resp B/P (MAP) Pulse Ox O2 Delivery O2 Flow Rate FiO2 07/21/19 09:00 104 96/55 07/21/19 05:23 140/72 2/1/20 05:23 140/72 07/21/19 04:00 98.0 102 20 143/75 (97) 100 07/21/19 04:00 Nasal Cannula 2.0 07/21/19 04:00 102 07/21/19 00:00 96 07/21/19 00:00 108/58 07/21/19 00:00 98.7 100 20 114/62 (79) 100 07/21/19 00:00 Nasal Cannula 2.0 07/20/19 21:31 110 124/74 07/20/19 20:00 Nasal Cannula 2.0 07/20/19 20:00 98.4 110 20 124/74 (91) 95 07/20/19 19:38 109 07/20/19 19:17 98 Room Air 21 07/20/19 17:34 93/77 07/20/19 16:00 98.0 118 18 93/70 (78) 95 07/20/19 16:00 Nasal Cannula 2.0 07/20/19 16:00 110 07/20/19 12:00 97.9 102 20 125/70 (88) 94 07/20/19 12:00 102 07/20/19 12:00 Nasal Cannula 2.0 Intake and Output 07/20/19 07/21/19 19:00 07:00 Intake Total 1110 ml 295 ml Balance 1110 ml 295 ml Free Water 140 ml Tube Feeding 110 ml 155 ml Hemodialysis 1000 ml # Bowel Movements 2 Laboratory Tests 07/21/19 03:35: White Blood Count 8.6, Red Blood Count 3.81L, Hemoglobin 12.9L, Hematocrit 39.8L , Mean Corpuscular Volume 104H, Mean Corpuscular Hemoglobin 33.8H, Mean Corpuscular Hemoglobin Concent 32.4, Red Cell Distribution Width 14.7, Platelet Count 100L, Mean Platelet Volume 10.1, Neutrophils (%) (Auto) 78.2H, Lymphocytes (%) (Auto) 9.4L, Monocytes (%) (Auto) 8.4, Eosinophils (%) (Auto) 3.7H, Basophils (%) (Auto) 0.3, Sodium Level 146H, Potassium Level 4.2, Chloride Level 102, Carbon Dioxide Level 36H, Anion Gap 8, Blood Urea Nitrogen 54H, Creatinine 9.8H, Estimat Glomerular Filtration Rate 6.9, Glucose Level 112H , Uric Acid 4.3, Calcium Level 9.0, Phosphorus Level 5.3H, Magnesium Level 2.1, Total Bilirubin 1.0, Aspartate Amino Transf (AST/SGOT) 16, Alanine Aminotransferase (ALT/SGPT) 8L, Alkaline Phosphatase 119H, C-Reactive Protein, Quantitative 2.8H, Pro-B-Type Natriuretic Peptide 72186L, Total Protein 8.7H, Albumin 3.3L, Globulin 5.4, Albumin/Globulin Ratio 0.6L Current Medications Medications (Trade) Dose Ordered Sig/David Route PRN Reason Start Time Stop Time Status Last Admin Dose Admin Acetaminophen (Tylenol) 650 mg Q4H PRN ORAL Fever 07/20/19 02:00 08/15/19 13:59 Acetaminophen (Tylenol) 650 mg Q4H PRN RECTAL FEVER 07/20/19 01:45 08/15/19 13:44 Albuterol/ Ipratropium (Albuterol/ Ipratropium) 3 ml Q4H PRN HHN Shortness of Breath 07/20/19 02:00 07/21/19 13:59 Carvedilol (Coreg) 25 mg EVERY 12 HOURS NG 07/20/19 21:00 08/17/19 09:59 07/20/19 21:31 Clonidine HCl (Catapres TTS-3) 1 patch QWEEK TDERMAL 07/26/19 11:00 08/18/19 10:59 Dextrose (Dextrose 50%) 25 ml Q30M PRN IV Hypoglycemia 07/20/19 01:30 08/15/19 13:59 Dextrose (Dextrose 50%) 50 ml Q30M PRN IV Hypoglycemia 07/20/19 01:30 08/15/19 13:59 Heparin Sodium (Porcine) (Heparin 5000 units/ml) 5,000 units EVERY 8 HOURS SUBQ 07/20/19 06:00 08/15/19 13:59 Hydralazine HCl (Apresoline) 10 mg Q4H PRN IV bp over 160 syst 07/20/19 02:00 08/15/19 13:59 Hydralazine HCl (Apresoline) 25 mg Q6HR NG 07/20/19 12:00 08/18/19 18:29 07/21/19 05:23 Lansoprazole (Prevacid) 30 mg Q12HR NG 07/20/19 21:00 3/1/20 20:59 07/21/19 09:27 Levofloxacin 100 ml @ 100 mls/hr Q48H IVPB 07/21/19 15:00 07/24/19 14:59 Lorazepam (Ativan 2mg/ml 1ml) 2 mg Q2H PRN IV agitation 07/20/19 02:00 07/23/19 13:59 Metoclopramide HCl (Reglan) 10 mg Q6H PRN IVP Nausea & Vomiting 07/20/19 01:45 08/15/19 13:44 Morphine Sulfate (Morphine Sulfate) 4 mg Q4H PRN IVP Severe Pain (Pain Scale 7-10) 07/20/19 02:00 07/23/19 13:59 Nitroglycerin (Ntg) 1 patch Q24H TDERMAL 07/20/19 06:00 08/19/19 05:59 07/21/19 05:23 Sennosides (Senokot) 8.6 mg BIDPRN PRN ORAL Constipation 07/20/19 13:45 08/15/19 13:44 Asher Vu MD Jul 21, 2019 09:43
--- NOTE | 2019-07-21 10:00 | NUR ---
NURSE NOTES: Coreg was held due to hypotension, SBP96. NGT feed is now on hold due to x1 episode of vomiting yellowish/orange liquid. Pt opens eyes to touch however does not respond verbally. No signs/symptoms of other distress noted. Will continue to monitor and administer PRN Reglan for n/v as needed per PRN order.
--- NOTE | 2019-07-21 10:32 | Infectious Diseases Prog Note ---
Assessment/Plan Assessment/Plan Assessment: Probable aspiration PNA -07/20 CXR: Mild pulmonary vascular congestion suspected. Bilateral pleural effusions. -07/17 CXR: Bilateral pleural effusion and mild interstitial congestion and hazy parenchymal opacity present. cardiac arrest asystole during surgical procedure -07/16 CXR: pulmonary edema Non healing scrotal wound; bx showed: ruptured epidermal inclusion cyst with associated abscess formation -07/16 sp attempted excision but procedure aborted due to cardiac arrest VDRF 07/16; extubated 07/18 Afebrile Mild leukocytosis, SP ESRD on HD via L arm AVF Dm2 HTN internal hemorrhoids Plan: -Cont PO Levaquin #5/7 to cover for probable aspiration PNA and post surgical excision testicular absces -07/16 SP Ancef x1 -f/u cx -Monitor CBC/CMP, temperatures -aspiration precautions -wound care per surgical team -Sx, Neprho, pulm f/u Thank you for this consultation. Will continue to follow along with you. Discussed with RN Subjective Allergies: Coded Allergies: LISINOPRIL (Verified Allergy, Severe, Shortness of Breath, 07/02/19) THROAT SWELLS UP PENICILLINS (Verified Allergy, Severe, throat swelling, 07/17/19) tolerated Ancef x1 07/16/19 Uncoded Allergies: shellfish (Allergy, Severe, 02/06/19) shortness of breath, vomiting, throat swelling Subjective afebrile no leukocytosis at 2l NC Objective Vital Signs Last 24 Hour Vital Signs Date Time Temp Pulse Resp B/P (MAP) Pulse Ox O2 Delivery O2 Flow Rate FiO2 07/21/19 09:00 104 96/55 07/21/19 08:00 Nasal Cannula 2.0 07/21/19 08:00 99.0 104 19 96/55 (69) 100 07/21/19 08:00 104 07/21/19 05:23 140/72 07/21/19 05:23 140/72 07/21/19 04:00 98.0 102 20 143/75 (97) 100 07/21/19 04:00 Nasal Cannula 2.0 07/21/19 04:00 102 07/21/19 00:00 96 07/21/19 00:00 108/58 07/21/19 00:00 98.7 100 20 114/62 (79) 100 07/21/19 00:00 Nasal Cannula 2.0 07/20/19 21:31 110 124/74 07/20/19 20:00 Nasal Cannula 2.0 07/20/19 20:00 98.4 110 20 124/74 (91) 95 07/20/19 19:38 109 07/20/19 19:17 98 Room Air 21 07/20/19 17:34 93/77 07/20/19 16:00 98.0 118 18 93/70 (78) 95 07/20/19 16:00 Nasal Cannula 2.0 07/20/19 16:00 110 07/20/19 12:00 97.9 102 20 125/70 (88) 94 07/20/19 12:00 102 07/20/19 12:00 Nasal Cannula 2.0 Height (Feet): 5 Height (Inches): 5.50 Weight (Pounds): 165 Objective General Appearance: no apparent distress Head: normocephalic EENT: ETT in place Neck: supple Respiratory: normal breath sounds, no respiratory distress, other - intubated Cardiovascular: normal rate Gastrointestinal: normal inspection, non tender, soft, normal bowel sounds, non -distended Neurologic: oriented x3, normal inspection Skin: normal inspection, normal color, no rash, warm/dry, palpation normal, well hydrated scrotal wound packed Laboratory Tests Test 07/21/19 03:35 White Blood Count 8.6 K/UL (4.8-10.8) Red Blood Count 3.81 M/UL (4.70-6.10) L Hemoglobin 12.9 G/DL (14.2-18.0) L Hematocrit 39.8 % (42.0-52.0) L Mean Corpuscular Volume 104 FL (80-99) H Mean Corpuscular Hemoglobin 33.8 PG (27.0-31.0) H Mean Corpuscular Hemoglobin Concent 32.4 G/DL (32.0-36.0) Red Cell Distribution Width 14.7 % (11.6-14.8) Platelet Count 100 K/UL (150-450) L Mean Platelet Volume 10.1 FL (6.5-10.1) Neutrophils (%) (Auto) 78.2 % (45.0-75.0) H Lymphocytes (%) (Auto) 9.4 % (20.0-45.0) L Monocytes (%) (Auto) 8.4 % (1.0-10.0) Eosinophils (%) (Auto) 3.7 % (0.0-3.0) H Basophils (%) (Auto) 0.3 % (0.0-2.0) Sodium Level 146 MMOL/L (136-145) H Potassium Level 4.2 MMOL/L (3.5-5.1) Chloride Level 102 MMOL/L (98-107) Carbon Dioxide Level 36 MMOL/L (21-32) H Anion Gap 8 mmol/L (5-15) Blood Urea Nitrogen 54 mg/dL (7-18) H Creatinine 9.8 MG/DL (0.55-1.30) H Estimat Glomerular Filtration Rate 6.9 mL/min (>60) Glucose Level 112 MG/DL (74-106) H Uric Acid 4.3 MG/DL (2.6-7.2) Calcium Level 9.0 MG/DL (8.5-10.1) Phosphorus Level 5.3 MG/DL (2.5-4.9) H Magnesium Level 2.1 MG/DL (1.8-2.4) Total Bilirubin 1.0 MG/DL (0.2-1.0) Aspartate Amino Transf (AST/SGOT) 16 U/L (15-37) Alanine Aminotransferase (ALT/SGPT) 8 U/L (12-78) L Alkaline Phosphatase 119 U/L (46-116) H C-Reactive Protein, Quantitative 2.8 mg/dL (0.00-0.90) H Pro-B-Type Natriuretic Peptide 29496 pg/mL (0-125) H Total Protein 8.7 G/DL (6.4-8.2) H Albumin 3.3 G/DL (3.4-5.0) L Globulin 5.4 g/dL Albumin/Globulin Ratio 0.6 (1.0-2.7) L Current Medications Medications (Trade) Dose Ordered Sig/David Route PRN Reason Start Time Stop Time Status Last Admin Dose Admin Acetaminophen (Tylenol) 650 mg Q4H PRN ORAL Fever 07/20/19 02:00 08/15/19 13:59 Acetaminophen (Tylenol) 650 mg Q4H PRN RECTAL FEVER 07/20/19 01:45 08/15/19 13:44 Albuterol/ Ipratropium (Albuterol/ Ipratropium) 3 ml Q4H PRN HHN Shortness of Breath 07/20/19 02:00 07/21/19 13:59 Carvedilol (Coreg) 25 mg EVERY 12 HOURS NG 07/20/19 21:00 08/17/19 09:59 07/20/19 21:31 Clonidine HCl (Catapres TTS-3) 1 patch QWEEK TDERMAL 07/26/19 11:00 08/18/19 10:59 Dextrose (Dextrose 50%) 25 ml Q30M PRN IV Hypoglycemia 07/20/19 01:30 08/15/19 13:59 Dextrose (Dextrose 50%) 50 ml Q30M PRN IV Hypoglycemia 07/20/19 01:30 08/15/19 13:59 Heparin Sodium (Porcine) (Heparin 5000 units/ml) 5,000 units EVERY 8 HOURS SUBQ 07/20/19 06:00 08/15/19 13:59 Hydralazine HCl (Apresoline) 10 mg Q4H PRN IV bp over 160 syst 07/20/19 02:00 08/15/19 13:59 Hydralazine HCl (Apresoline) 25 mg Q6HR NG 07/20/19 12:00 08/18/19 18:29 07/21/19 05:23 Lansoprazole (Prevacid) 30 mg Q12HR NG 07/20/19 21:00 08/19/19 20:59 07/21/19 09:27 Levofloxacin 100 ml @ 100 mls/hr Q48H IVPB 07/21/19 15:00 07/24/19 14:59 Lorazepam (Ativan 2mg/ml 1ml) 2 mg Q2H PRN IV agitation 07/20/19 02:00 07/23/19 13:59 Metoclopramide HCl (Reglan) 10 mg Q6H PRN IVP Nausea & Vomiting 07/20/19 01:45 08/15/19 13:44 Morphine Sulfate (Morphine Sulfate) 4 mg Q4H PRN IVP Severe Pain (Pain Scale 7-10) 07/20/19 02:00 07/23/19 13:59 Nitroglycerin (Ntg) 1 patch Q24H TDERMAL 07/20/19 06:00 08/19/19 05:59 07/21/19 05:23 Sennosides (Senokot) 8.6 mg BIDPRN PRN ORAL Constipation 07/20/19 13:45 08/15/19 13:44 Lee Ann Hyatt M.D. Jul 21, 2019 10:32
[2019-07-21 12:00] VITALS: BP 113/56
--- NOTE | 2019-07-21 12:00 | NUR ---
NURSE NOTES: Pt was administered x1 Reglan IVP per PRN order for n/v. Pt was seen by Dr Davis and Dr Delgadillo. Per Dr Davis, NGT feed should be stopped, and pt to remain NPO, since he is at risk of aspiration due to x1 episode of vomiting. NGT tubing is currently to be clamped per .
[2019-07-21] MEDS ORDERED: Metoclopramide 10mg/2ml Inj IVP PRN (12:45)
--- NOTE | 2019-07-21 12:47 | Nephrology Progress Note ---
Assessment/Plan Problem List: (1) ESRD (end stage renal disease) (2) Acute respiratory failure (3) Cardiac arrest (4) Diabetes mellitus (5) Cardiomyopathy Assessment interoperative cardiac arrest Cardiomyopathy and Low ejfx ESRD- high K BP low at this time s/p Asystole in OR Plan self extubated 07/[address] eval PRN BP meds adjust coreg dose HD next 07/22 2D echo noted per orders Subjective ROS Limited/Unobtainable: No Constitutional: Reports: malaise Objective Objective Last 24 Hour Vital Signs Date Time Temp Pulse Resp B/P (MAP) Pulse Ox O2 Delivery O2 Flow Rate FiO2 07/21/19 09:00 104 96/55 07/21/19 08:00 Nasal Cannula 2.0 07/21/19 08:00 99.0 104 19 96/55 (69) 100 07/21/19 08:00 104 07/21/19 05:23 140/72 07/21/19 05:23 140/72 07/21/19 04:00 98.0 102 20 143/75 (97) 100 07/21/19 04:00 Nasal Cannula 2.0 07/21/19 04:00 102 07/21/19 00:00 96 07/21/19 00:00 108/58 07/21/19 00:00 98.7 100 20 114/62 (79) 100 07/21/19 00:00 Nasal Cannula 2.0 07/20/19 21:31 110 124/74 07/20/19 20:00 Nasal Cannula 2.0 07/20/19 20:00 98.4 110 20 124/74 (91) 95 07/20/19 19:38 109 07/20/19 19:17 98 Room Air 21 07/20/19 17:34 93/77 07/20/19 16:00 98.0 118 18 93/70 (78) 95 07/20/19 16:00 Nasal Cannula 2.0 07/20/19 16:00 110 Intake and Output 07/20/19 07/21/19 19:00 07:00 Intake Total 1110 ml 295 ml Balance 1110 ml 295 ml Free Water 140 ml Tube Feeding 110 ml 155 ml Hemodialysis 1000 ml # Bowel Movements 2 Laboratory Tests 07/21/19 03:35: White Blood Count 8.6, Red Blood Count 3.81L, Hemoglobin 12.9L, Hematocrit 39.8L , Mean Corpuscular Volume 104H, Mean Corpuscular Hemoglobin 33.8H, Mean Corpuscular Hemoglobin Concent 32.4, Red Cell Distribution Width 14.7, Platelet Count 100L, Mean Platelet Volume 10.1, Neutrophils (%) (Auto) 78.2H, Lymphocytes (%) (Auto) 9.4L, Monocytes (%) (Auto) 8.4, Eosinophils (%) (Auto) 3.7H, Basophils (%) (Auto) 0.3, Sodium Level 146H, Potassium Level 4.2, Chloride Level 102, Carbon Dioxide Level 36H, Anion Gap 8, Blood Urea Nitrogen 54H, Creatinine 9.8H, Estimat Glomerular Filtration Rate 6.9, Glucose Level 112H , Uric Acid 4.3, Calcium Level 9.0, Phosphorus Level 5.3H, Magnesium Level 2.1, Total Bilirubin 1.0, Aspartate Amino Transf (AST/SGOT) 16, Alanine Aminotransferase (ALT/SGPT) 8L, Alkaline Phosphatase 119H, C-Reactive Protein, Quantitative 2.8H, Pro-B-Type Natriuretic Peptide 04672C, Total Protein 8.7H, Albumin 3.3L, Globulin 5.4, Albumin/Globulin Ratio 0.6L Height (Feet): 5 Height (Inches): 5.50 Weight (Pounds): 165 General Appearance: no apparent distress EENT: other - NGT Cardiovascular: other - variable Respiratory/Chest: decreased breath sounds Objective no change Daniel Delgadillo MD Jul 21, 2019 12:47
--- NOTE | 2019-07-21 13:06 | NUR ---
NURSE NOTES: [facility] Nephrology was contacted to set up HD for tomorrow per Dr Delgadillo's order. Spoke with Prudencio, who will leave a message for HD-RN (Ramon).
--- NOTE | 2019-07-21 13:18 | Surgery Progress Note ---
Surgery Progress Note Subjective Procedure Performed 1. excision of scrotal lesion - aborted Symptoms: improved Additional Comments more alert and responsive today follows commands. states remembers who i am verbal Objective Last 24 Hour Vital Signs Date Time Temp Pulse Resp B/P (MAP) Pulse Ox O2 Delivery O2 Flow Rate FiO2 07/21/19 09:00 104 96/55 07/21/19 08:00 Nasal Cannula 2.0 07/21/19 08:00 99.0 104 19 96/55 (69) 100 07/21/19 08:00 104 07/21/19 05:23 140/72 07/21/19 05:23 140/72 07/21/19 04:00 98.0 102 20 143/75 (97) 100 07/21/19 04:00 Nasal Cannula 2.0 07/21/19 04:00 102 07/21/19 00:00 96 07/21/19 00:00 108/58 07/21/19 00:00 98.7 100 20 114/62 (79) 100 07/21/19 00:00 Nasal Cannula 2.0 07/20/19 21:31 110 124/74 07/20/19 20:00 Nasal Cannula 2.0 07/20/19 20:00 98.4 110 20 124/74 (91) 95 07/20/19 19:38 109 07/20/19 19:17 98 Room Air 21 07/20/19 17:34 93/77 07/20/19 16:00 98.0 118 18 93/70 (78) 95 07/20/19 16:00 Nasal Cannula 2.0 07/20/19 16:00 110 I&O Intake and Output 07/20/19 07/21/19 19:00 07:00 Intake Total 1110 ml 295 ml Balance 1110 ml 295 ml Free Water 140 ml Tube Feeding 110 ml 155 ml Hemodialysis 1000 ml # Bowel Movements 2 Dressing: saturated Wound: clean Drains: none Cardiovascular: RSR Respiratory: clear Abdomen: soft, non-tender, present bowel sounds Extremities: no edema, no tenderness, no cyanosis Laboratory Tests Test 07/21/19 03:35 White Blood Count 8.6 K/UL (4.8-10.8) Red Blood Count 3.81 M/UL (4.70-6.10) L Hemoglobin 12.9 G/DL (14.2-18.0) L Hematocrit 39.8 % (42.0-52.0) L Mean Corpuscular Volume 104 FL (80-99) H Mean Corpuscular Hemoglobin 33.8 PG (27.0-31.0) H Mean Corpuscular Hemoglobin Concent 32.4 G/DL (32.0-36.0) Red Cell Distribution Width 14.7 % (11.6-14.8) Platelet Count 100 K/UL (150-450) L Mean Platelet Volume 10.1 FL (6.5-10.1) Neutrophils (%) (Auto) 78.2 % (45.0-75.0) H Lymphocytes (%) (Auto) 9.4 % (20.0-45.0) L Monocytes (%) (Auto) 8.4 % (1.0-10.0) Eosinophils (%) (Auto) 3.7 % (0.0-3.0) H Basophils (%) (Auto) 0.3 % (0.0-2.0) Sodium Level 146 MMOL/L (136-145) H Potassium Level 4.2 MMOL/L (3.5-5.1) Chloride Level 102 MMOL/L (98-107) Carbon Dioxide Level 36 MMOL/L (21-32) H Anion Gap 8 mmol/L (5-15) Blood Urea Nitrogen 54 mg/dL (7-18) H Creatinine 9.8 MG/DL (0.55-1.30) H Estimat Glomerular Filtration Rate 6.9 mL/min (>60) Glucose Level 112 MG/DL (74-106) H Uric Acid 4.3 MG/DL (2.6-7.2) Calcium Level 9.0 MG/DL (8.5-10.1) Phosphorus Level 5.3 MG/DL (2.5-4.9) H Magnesium Level 2.1 MG/DL (1.8-2.4) Total Bilirubin 1.0 MG/DL (0.2-1.0) Aspartate Amino Transf (AST/SGOT) 16 U/L (15-37) Alanine Aminotransferase (ALT/SGPT) 8 U/L (12-78) L Alkaline Phosphatase 119 U/L (46-116) H C-Reactive Protein, Quantitative 2.8 mg/dL (0.00-0.90) H Pro-B-Type Natriuretic Peptide 10195 pg/mL (0-125) H Total Protein 8.7 G/DL (6.4-8.2) H Albumin 3.3 G/DL (3.4-5.0) L Globulin 5.4 g/dL Albumin/Globulin Ratio 0.6 (1.0-2.7) L Plan Problems: (1) Scrotal lesion Assessment & Plan: Continue with 3 times daily dressings okay for bacitracin and Xeroform gauze (2) Cardiac arrest Assessment & Plan: Etiology unknown pending echo appreciate cardiology input Continue current care extubated abg okay hold diet as failed swallow eval tube feeds via ng tube thank you Thank you will follow with recommendations Zenon Galloway Jul 21, 2019 13:18
--- NOTE | 2019-07-21 14:00 | NUR ---
NURSE NOTES: Pt's NGT is connected to low intermittent suction. Pt was seen by Dr Galloway. Tube feed is to remain off for 24hours until tomorrow.
[2019-07-21] MEDS ORDERED: NS 275ml ONE (14:24)
[2019-07-21] MEDS ORDERED: Tubing IV Secondary IV ONE (14:24)
--- NOTE | 2019-07-21 15:11 | Internal Med Progress Note ---
Subjective Date of Service: Jul 21, 2019 Physician Name PerezMichael Attending Physician Zuhair Singleton MD Current Medications Medications (Trade) Dose Ordered Sig/David Route PRN Reason Start Time Stop Time Status Last Admin Dose Admin Acetaminophen (Tylenol) 650 mg Q4H PRN ORAL Fever 07/20/19 02:00 08/15/19 13:59 Acetaminophen (Tylenol) 650 mg Q4H PRN RECTAL FEVER 07/20/19 01:45 08/15/19 13:44 Carvedilol (Coreg) 25 mg EVERY 12 HOURS NG 07/20/19 21:00 08/17/19 09:59 07/20/19 21:31 Clonidine HCl (Catapres Tab) 0.1 mg Q4H PRN NG bp 160 syst 07/21/19 12:45 08/20/19 12:44 Dextrose (Dextrose 50%) 25 ml Q30M PRN IV Hypoglycemia 07/20/19 01:30 08/15/19 13:59 Dextrose (Dextrose 50%) 50 ml Q30M PRN IV Hypoglycemia 07/20/19 01:30 08/15/19 13:59 Heparin Sodium (Porcine) (Heparin 5000 units/ml) 5,000 units EVERY 8 HOURS SUBQ 07/20/19 06:00 08/15/19 13:59 Hydralazine HCl (Apresoline) 10 mg Q4H PRN IV bp over 180 syst 07/21/19 14:00 08/15/19 13:59 Hydralazine HCl (Apresoline) 25 mg Q6HR NG 07/20/19 12:00 08/18/19 18:29 07/21/19 05:23 Levofloxacin 100 ml @ 100 mls/hr Q48H IVPB 07/21/19 15:00 07/24/19 14:59 Lorazepam (Ativan 2mg/ml 1ml) 2 mg Q2H PRN IV agitation 07/20/19 02:00 07/23/19 13:59 Metoclopramide HCl (Reglan) 10 mg Q8H PRN IVP Nausea & Vomiting 07/21/19 12:45 08/20/19 12:44 Morphine Sulfate (Morphine Sulfate) 4 mg Q4H PRN IVP Severe Pain (Pain Scale 7-10) 07/20/19 02:00 07/23/19 13:59 Nitroglycerin (Ntg) 1 patch Q24H TDERMAL 07/20/19 06:00 08/19/19 05:59 07/21/19 05:23 Pantoprazole (Protonix) 40 mg EVERY 12 HOURS IVP 07/21/19 21:00 08/20/19 20:59 Sennosides (Senokot) 8.6 mg BIDPRN PRN ORAL Constipation 07/20/19 13:45 08/15/19 13:44 Allergies: Coded Allergies: LISINOPRIL (Verified Allergy, Severe, Shortness of Breath, 07/02/19) THROAT SWELLS UP PENICILLINS (Verified Allergy, Severe, throat swelling, 07/17/19) tolerated Ancef x1 07/16/19 Uncoded Allergies: shellfish (Allergy, Severe, 02/06/19) shortness of breath, vomiting, throat swelling ROS Limited/Unobtainable: Yes Subjective 49 YO M admitted for scrotal fistulotomy. S/P cardiac arrest. Self extubated . Cover for Int med-Dr Singleton. PATRICK Objective Last Vital Signs Date Time Temp Pulse Resp B/P (MAP) Pulse Ox O2 Delivery O2 Flow Rate FiO2 07/21/19 12:00 113 07/21/19 12:00 99.4 20 113/56 (75) 100 07/21/19 12:00 Nasal Cannula 2.0 07/20/19 19:17 21 Laboratory Tests Test 07/21/19 03:35 White Blood Count 8.6 K/UL (4.8-10.8) Red Blood Count 3.81 M/UL (4.70-6.10) L Hemoglobin 12.9 G/DL (14.2-18.0) L Hematocrit 39.8 % (42.0-52.0) L Mean Corpuscular Volume 104 FL (80-99) H Mean Corpuscular Hemoglobin 33.8 PG (27.0-31.0) H Mean Corpuscular Hemoglobin Concent 32.4 G/DL (32.0-36.0) Red Cell Distribution Width 14.7 % (11.6-14.8) Platelet Count 100 K/UL (150-450) L Mean Platelet Volume 10.1 FL (6.5-10.1) Neutrophils (%) (Auto) 78.2 % (45.0-75.0) H Lymphocytes (%) (Auto) 9.4 % (20.0-45.0) L Monocytes (%) (Auto) 8.4 % (1.0-10.0) Eosinophils (%) (Auto) 3.7 % (0.0-3.0) H Basophils (%) (Auto) 0.3 % (0.0-2.0) Sodium Level 146 MMOL/L (136-145) H Potassium Level 4.2 MMOL/L (3.5-5.1) Chloride Level 102 MMOL/L (98-107) Carbon Dioxide Level 36 MMOL/L (21-32) H Anion Gap 8 mmol/L (5-15) Blood Urea Nitrogen 54 mg/dL (7-18) H Creatinine 9.8 MG/DL (0.55-1.30) H Estimat Glomerular Filtration Rate 6.9 mL/min (>60) Glucose Level 112 MG/DL (74-106) H Uric Acid 4.3 MG/DL (2.6-7.2) Calcium Level 9.0 MG/DL (8.5-10.1) Phosphorus Level 5.3 MG/DL (2.5-4.9) H Magnesium Level 2.1 MG/DL (1.8-2.4) Total Bilirubin 1.0 MG/DL (0.2-1.0) Aspartate Amino Transf (AST/SGOT) 16 U/L (15-37) Alanine Aminotransferase (ALT/SGPT) 8 U/L (12-78) L Alkaline Phosphatase 119 U/L (46-116) H C-Reactive Protein, Quantitative 2.8 mg/dL (0.00-0.90) H Pro-B-Type Natriuretic Peptide 34077 pg/mL (0-125) H Total Protein 8.7 G/DL (6.4-8.2) H Albumin 3.3 G/DL (3.4-5.0) L Globulin 5.4 g/dL Albumin/Globulin Ratio 0.6 (1.0-2.7) L Intake and Output 07/20/19 07/21/19 19:00 07:00 Intake Total 1110 ml 295 ml Balance 1110 ml 295 ml Free Water 140 ml Tube Feeding 110 ml 155 ml Hemodialysis 1000 ml # Bowel Movements 2 Objective PHYSICAL EXAMINATION: GENERAL: The patient is well-developed well-nourished male, intubated and sedated in the intensive care unit. CHEST: nasal canula; Diffuse coarse breath sounds bilaterally without wheezes CARDIOVASCULAR: Regular rhythm and rate. S1, S2 are normal without murmurs, rubs, or gallops. ABDOMEN: Soft, nontender, nondistended. Positive bowel sounds. No evidence of hepatosplenomegaly. Currently, no rebound or guarding noted. EXTREMITIES: Negative for clubbing, cyanosis, edema. NEUROLOGIC: Unable to assess. Assessment/Plan Assessment/Plan ASSESSMENT: This is a 49-year-old male. 1. Scrotal fistula. 2. Status post cardiac arrest. 3. Renal failure. 4. Hypertension. 5. Gout. 6. End stage renal disease on hemodialysis. 7. Cardiomyopathy 8. Systolic CHF TREATMENT: 1. Scrotal fistula. Surgery was aborted on 07/16/2019. Follow recommendations of Surgery, Dr. Galloway. 2. Status post cardiac arrest. The patient is S/P self-extubation 07/18/19. A Cardiology consultation has been obtained with Dr. Emmanuel Cortés. Follow recommendations of Cardiology. 3. End stage renal disease. A Nephrology consultation has been obtained with Dr. Daniel Delgadillo. Follow recommendations of Nephrology. 4. Hypertension. 5. Gout. 6. PATRICK status Michael Perez MD Jul 21, 2019 15:11
[2019-07-21 16:00] VITALS: BP 137/71
--- NOTE | 2019-07-21 16:57 | General Progress Note ---
Assessment/Plan Status: unchanged Assessment/Plan: Assessment/Plan Problems: (1) Scrotal lesion ICD Codes: N50.9 - Disorder of male genital organs, unspecified SNOMED: 40288043 (2) Cardiac arrest ICD Codes: I46.9 - Cardiac arrest, cause unspecified SNOMED: 572170896 (3) Anemia ICD Codes: D64.9 - Anemia, unspecified SNOMED: 572966829 (4) Constipation ICD Codes: K59.00 - Constipation, unspecified (5) N/V, TF intolerance Assessment/Plan Hold TF, since at aspiration risk with somnolence and vomitins follow up cardiology recs Anemia work-up Occult blood stool to rule out any GI bleed prn transfusions ppi IVF per renal Subjective Allergies: Coded Allergies: LISINOPRIL (Verified Allergy, Severe, Shortness of Breath, 07/02/19) THROAT SWELLS UP PENICILLINS (Verified Allergy, Severe, throat swelling, 07/17/19) tolerated Ancef x1 07/16/19 Uncoded Allergies: shellfish (Allergy, Severe, 02/06/19) shortness of breath, vomiting, throat swelling Subjective Above noted minimally interactive some vomiting earlier per RN TF now off Objective Last 24 Hour Vital Signs Date Time Temp Pulse Resp B/P (MAP) Pulse Ox O2 Delivery O2 Flow Rate FiO2 07/21/19 16:00 Nasal Cannula 2.0 07/21/19 12:00 113 07/21/19 12:00 99.4 112 20 113/56 (75) 100 07/21/19 12:00 Nasal Cannula 2.0 07/21/19 09:00 104 96/55 07/21/19 08:00 Nasal Cannula 2.0 07/21/19 08:00 99.0 104 19 96/55 (69) 100 07/21/19 08:00 104 07/21/19 05:23 140/72 07/21/19 05:23 140/72 07/21/19 04:00 98.0 102 20 143/75 (97) 100 07/21/19 04:00 Nasal Cannula 2.0 07/21/19 04:00 102 07/21/19 00:00 96 07/21/19 00:00 108/58 07/21/19 00:00 98.7 100 20 114/62 (79) 100 07/21/19 00:00 Nasal Cannula 2.0 07/20/19 21:31 110 124/74 07/20/19 20:00 Nasal Cannula 2.0 07/20/19 20:00 98.4 110 20 124/74 (91) 95 07/20/19 19:38 109 07/20/19 19:17 98 Room Air 21 07/20/19 17:34 93/77 Intake and Output 07/20/19 07/21/19 18:59 06:59 Intake Total 1110 ml 270 ml Balance 1110 ml 270 ml Free Water 140 ml Tube Feeding 110 ml 130 ml Hemodialysis 1000 ml # Bowel Movements 2 Laboratory Tests 07/21/19 03:35: White Blood Count 8.6, Red Blood Count 3.81L, Hemoglobin 12.9L, Hematocrit 39.8L , Mean Corpuscular Volume 104H, Mean Corpuscular Hemoglobin 33.8H, Mean Corpuscular Hemoglobin Concent 32.4, Red Cell Distribution Width 14.7, Platelet Count 100L, Mean Platelet Volume 10.1, Neutrophils (%) (Auto) 78.2H, Lymphocytes (%) (Auto) 9.4L, Monocytes (%) (Auto) 8.4, Eosinophils (%) (Auto) 3.7H, Basophils (%) (Auto) 0.3, Sodium Level 146H, Potassium Level 4.2, Chloride Level 102, Carbon Dioxide Level 36H, Anion Gap 8, Blood Urea Nitrogen 54H, Creatinine 9.8H, Estimat Glomerular Filtration Rate 6.9, Glucose Level 112H , Uric Acid 4.3, Calcium Level 9.0, Phosphorus Level 5.3H, Magnesium Level 2.1, Total Bilirubin 1.0, Aspartate Amino Transf (AST/SGOT) 16, Alanine Aminotransferase (ALT/SGPT) 8L, Alkaline Phosphatase 119H, C-Reactive Protein, Quantitative 2.8H, Pro-B-Type Natriuretic Peptide 97237I, Total Protein 8.7H, Albumin 3.3L, Globulin 5.4, Albumin/Globulin Ratio 0.6L Height (Feet): 5 Height (Inches): 5.50 Weight (Pounds): 165 Objective Debilitated AA man sleepy / arousable NCAT supple CTA RR abd soft no edema Thomas Davis MD Jul 21, 2019 16:57
--- NOTE | 2019-07-21 17:01 | NUR ---
HAND-OFF: Report given to Yoanna HOBSON. Endorsed plan of care.
--- NOTE | 2019-07-21 17:02 | NUR ---
NURSE NOTES: Received patient from JOCE Strauss. Patient denies pain or acute distress. Patient able to mouth words but unable to make sound. Patient on 2L NC at this time. Patient on bilateral soft wrist restraint after being witnessed pulling out NGT and IV. Patient has right nares NGT that is hooked with low intermittent suction at this time due to vomiting this morning. patient anuric. Patient has hemodialysis ordered for tomorrow. AV shunt located on left upper arm. shunt intact with thrill present. Patient has surgical wound on the right scrotum that is covered with dressing intact. Patient has right forearm 20 gauge peripheral IV that is patent, asymptomatic, and saline locked. Patient repositioned at this time. Will continue to monitor.
--- NOTE | 2019-07-21 19:25 | NUR ---
HAND-OFF: Report given to JOCE Salazar. Patient vital sign stable. Endorsed to follow up.
--- NOTE | 2019-07-21 19:30 | NUR ---
NURSE NOTES: Received report from JOCE Lenz. Pt is resting on the bed and awake and confused and agitated. Pt has bilateral soft restraint and checked comfort and circulation. Given verbal cueing but he didn't understand. Trying to released restraint when during care but still trying to touch NGT. On O2 2L via nasal cannula and SaO2 100% noted. On tele monitor with ST. Iv site intact and no sign of infiltration noted. Pt has NGT on Rt. nares and on low intermittent suction and greenish color discharge noted. Keep HOB position. Surgical wound dressing is present on right scrotum, xeroform/gauze covered with abd pad/silk tape. Bilateral SCDs are in place on lower extremities for DVT prophylaxis. repositioned. Placed fall precaution. Will continue to care plan.
[2019-07-21 20:00] VITALS: BP 118/61
[2019-07-21] MEDS: Pantoprazole Inj IVP SCH (21:01)
--- NOTE | 2019-07-21 22:06 | Cardiology Progress Note ---
Assessment/Plan Assessment/Plan noted labs, telemetry sinus rhythm, stable Subjective Subjective The patient is lethargic, he opens his eyes and reacts to verbal stimuli, but does not follow commands Objective Last 24 Hour Vital Signs Date Time Temp Pulse Resp B/P (MAP) Pulse Ox O2 Delivery O2 Flow Rate FiO2 07/21/19 21:00 110 118/61 07/21/19 20:00 98.1 110 19 118/61 (80) 100 07/21/19 19:27 97 Room Air 21 07/21/19 19:27 111 20 97 Room Air 21 07/21/19 18:23 137/62 07/21/19 16:00 99.2 107 19 137/71 (93) 100 07/21/19 16:00 105 07/21/19 16:00 Nasal Cannula 2.0 07/21/19 12:00 113 07/21/19 12:00 99.4 112 20 113/56 (75) 100 07/21/19 12:00 Nasal Cannula 2.0 07/21/19 09:00 104 96/55 07/21/19 08:00 Nasal Cannula 2.0 07/21/19 08:00 99.0 104 19 96/55 (69) 100 07/21/19 08:00 104 07/21/19 05:23 140/72 07/21/19 05:23 140/72 07/21/19 04:00 98.0 102 20 143/75 (97) 100 07/21/19 04:00 Nasal Cannula 2.0 07/21/19 04:00 102 07/21/19 00:00 96 07/21/19 00:00 108/58 07/21/19 00:00 98.7 100 20 114/62 (79) 100 07/21/19 00:00 Nasal Cannula 2.0 General Appearance: no apparent distress, lethargic EENT: PERRL/EOMI Neck: JVD Rhythm: NSR Cardiovascular: regular rhythm Respiratory/Chest: crackles/rales Extremities: no swelling Intake and Output 07/20/19 07/21/19 19:00 07:00 Intake Total 1110 ml 295 ml Balance 1110 ml 295 ml Free Water 140 ml Tube Feeding 110 ml 155 ml Hemodialysis 1000 ml # Bowel Movements 2 Laboratory Tests Test 07/21/19 03:35 White Blood Count 8.6 K/UL (4.8-10.8) Red Blood Count 3.81 M/UL (4.70-6.10) L Hemoglobin 12.9 G/DL (14.2-18.0) L Hematocrit 39.8 % (42.0-52.0) L Mean Corpuscular Volume 104 FL (80-99) H Mean Corpuscular Hemoglobin 33.8 PG (27.0-31.0) H Mean Corpuscular Hemoglobin Concent 32.4 G/DL (32.0-36.0) Red Cell Distribution Width 14.7 % (11.6-14.8) Platelet Count 100 K/UL (150-450) L Mean Platelet Volume 10.1 FL (6.5-10.1) Neutrophils (%) (Auto) 78.2 % (45.0-75.0) H Lymphocytes (%) (Auto) 9.4 % (20.0-45.0) L Monocytes (%) (Auto) 8.4 % (1.0-10.0) Eosinophils (%) (Auto) 3.7 % (0.0-3.0) H Basophils (%) (Auto) 0.3 % (0.0-2.0) Sodium Level 146 MMOL/L (136-145) H Potassium Level 4.2 MMOL/L (3.5-5.1) Chloride Level 102 MMOL/L (98-107) Carbon Dioxide Level 36 MMOL/L (21-32) H Anion Gap 8 mmol/L (5-15) Blood Urea Nitrogen 54 mg/dL (7-18) H Creatinine 9.8 MG/DL (0.55-1.30) H Estimat Glomerular Filtration Rate 6.9 mL/min (>60) Glucose Level 112 MG/DL (74-106) H Uric Acid 4.3 MG/DL (2.6-7.2) Calcium Level 9.0 MG/DL (8.5-10.1) Phosphorus Level 5.3 MG/DL (2.5-4.9) H Magnesium Level 2.1 MG/DL (1.8-2.4) Total Bilirubin 1.0 MG/DL (0.2-1.0) Aspartate Amino Transf (AST/SGOT) 16 U/L (15-37) Alanine Aminotransferase (ALT/SGPT) 8 U/L (12-78) L Alkaline Phosphatase 119 U/L (46-116) H C-Reactive Protein, Quantitative 2.8 mg/dL (0.00-0.90) H Pro-B-Type Natriuretic Peptide 66941 pg/mL (0-125) H Total Protein 8.7 G/DL (6.4-8.2) H Albumin 3.3 G/DL (3.4-5.0) L Globulin 5.4 g/dL Albumin/Globulin Ratio 0.6 (1.0-2.7) L Steffany Schroeder MD Jul 21, 2019 22:06
[2019-07-22] VITALS: BP 101/56
[2019-07-22 04:00] VITALS: BP 107/66
[2019-07-22] MEDS: Nitroglycerin Patch 0.4mg TDERMAL SCH (05:14)
[2019-07-22 05:48] LABS: HEMATOCRIT 35.9 % (42.0-52.0); HEMOGLOBIN 11.7 G/DL (14.2-18.0); MEAN CORPUSCULAR VOLUME 104 FL (80-99); PLATELET COUNT 92 K/UL (150-450); RED BLOOD COUNT 3.45 M/UL (4.70-6.10); RED CELL DISTRIBUTION WIDTH 14.2 % (11.6-14.8); WHITE BLOOD COUNT 10.2 K/UL (4.8-10.8)
[2019-07-22 05:59] LABS: ANION GAP 10 mmol/L (5-15); BLOOD UREA NITROGEN 76 mg/dL (7-18); CALCIUM 8.8 MG/DL (8.5-10.1); CARBON DIOXIDE 34 MMOL/L (21-32); CHLORIDE 104 MMOL/L (98-107); CREATININE 12.3 MG/DL (0.55-1.30); POTASSIUM 4.8 MMOL/L (3.5-5.1); SODIUM 147 MMOL/L (136-145)
[2019-07-22] MEDS: Heparin 5000 units/ml inj SUBQ SCH ×3 (06:00→22:00)
[2019-07-22] MEDS: HydrALAZINE 25mg tab NG SCH ×2 (06:00)
--- NOTE | 2019-07-22 07:06 | NUR ---
HAND-OFF: Report given to JOCE Cole. PT is resting on the bed and no sign of acute distress noted.
--- NOTE | 2019-07-22 07:10 | NUR ---
NURSE NOTES: Received bedside report from Marie HOBSON. Pt. in bed, opens eyes at times. No sign of distress. On O2 at 2LPM via NC. No grimacing noted. NGT on low intermittent suction. Previous shift output was 50cc. no vomiting at previous shift. HOB elevated. AV shunt at left upper arm (+) bruit/thrill. IV site at right FA #20g. in placed patent/intact SL. Bed in low position, locked. Call light within reach. Will cont. to monitor.
[2019-07-22 08:00] VITALS: BP 106/58
[2019-07-22] MEDS: Pantoprazole Inj IVP SCH ×2 (09:00→20:26)
[2019-07-22] MEDS: Carvedilol 25mg Tab NG SCH ×2 (09:00→21:00)
[2019-07-22] MEDS: Bacitracin Oint 15gm Tube TOPIC SCH ×3 (09:06→18:36)
--- NOTE | 2019-07-22 09:07 | NUR ---
NURSE NOTES: Pt. having dialysis at present. Medications held.
--- NOTE | 2019-07-22 10:05 | NUR ---
RD ASSESSMENT & RECOMMENDATIONS SEE CARE ACTIVITY FOR COMPLETE ASSESSMENT DAILY ESTIMATED NEEDS: Needs based on Pulmonary, surgical wound, ESRD on HD 69.7kg 25-35 kcals/kg 7825-1963 total kcals 1.25-1.8 g protein/kg 87-125 g total protein Fluid per MD, on HD NUTRITION DIAGNOSIS: Swallowing difficulty r/t respiratory status as evidenced by s/p cardiac arrest in OR for scrotal lesion, s/p extubation, ICU status, HAT BRIM CURLER eval pending. CURRENT TF:NGT TO LIS (PO DIET RECOMMENDATIONS: RENAL DIET + HIGH PRO SNACKS IN B/W MEALS [texture per HAT BRIM CURLER]) ENTERAL NUTRITION RECOMMENDATIONS: NEPRO goal of 40ml/hr x24 hrs + prosource daily to provide 960ml, 1728 kcal, 89g pro, 698ml free H2O -> If pt remains not appropriate for oral diet, rec NGT feeds as medically able (pt currently w/ emesis and NGT to LIS). - Flush per MD, HOB over 30 degrees ADDITIONAL RECOMMENDATIONS: 1) Add NEPRO w/ variable po intake 2) Surgical wound healing: Add ARAM BID + nephrovite daily 3) Obtain a standing scale weight as medically able -> otherwise maintain calibrated bed scale wts 4) As medically able, TF recs as above to meet est nutritional needs
--- NOTE | 2019-07-22 10:09 | Pulmonology Progress Note ---
Assessment/Plan Assessment/Plan Pulmonary Progress Note Assessment/Plan Problems: (1) Cardiac arrest (2) Acute respiratory failure (3) ESRD (end stage renal disease) (4) Diabetes mellitus (5) Cardiomyopathy (6) Hypertension Assessment/Plan swallow study HD by nephrology monitor BP Insulin/sliding scale diabetic diet Subjective ROS Limited/Unobtainable: No Interval Events: awake, has NG tube Allergies: Coded Allergies: LISINOPRIL (Verified Allergy, Severe, Shortness of Breath, 07/02/19) THROAT SWELLS UP PENICILLINS (Verified Allergy, Severe, throat swelling, 07/17/19) tolerated Ancef x1 07/16/19 Uncoded Allergies: shellfish (Allergy, Severe, 02/06/19) shortness of breath, vomiting, throat swelling Objective Vital Signs Noted General Appearance: WD/WN HEENT: normocephalic, atraumatic Respiratory/Chest: chest wall non-tender, crackles/rales Cardiovascular: normal peripheral pulses, normal rate Abdomen: normal bowel sounds, no organomegaly Extremities: no cyanosis Skin: no lesions Laboratory Tests Noted Current Medications Medications (Trade) Dose Ordered Sig/David Route PRN Reason Start Time Stop Time Status Last Admin Dose Admin Acetaminophen (Tylenol) 650 mg Q4H PRN ORAL Fever 07/20/19 02:00 08/15/19 13:59 Acetaminophen (Tylenol) 650 mg Q4H PRN RECTAL FEVER 07/20/19 01:45 08/15/19 13:44 Albuterol/ Ipratropium (Albuterol/ Ipratropium) 3 ml Q4H PRN HHN Shortness of Breath 07/20/19 02:00 07/21/19 13:59 Carvedilol (Coreg) 12.5 mg EVERY 12 HOURS ORAL 07/20/19 09:00 08/17/19 09:59 07/20/19 08:26 Clonidine HCl (Catapres TTS-3) 1 patch QWEEK TDERMAL 07/26/19 11:00 08/18/19 10:59 Dextrose (Dextrose 50%) 25 ml Q30M PRN IV Hypoglycemia 07/20/19 01:30 08/15/19 13:59 Dextrose (Dextrose 50%) 50 ml Q30M PRN IV Hypoglycemia 07/20/19 01:30 08/15/19 13:59 Heparin Sodium (Porcine) (Heparin 5000 units/ml) 5,000 units EVERY 8 HOURS SUBQ 07/20/19 06:00 08/15/19 13:59 Hydralazine HCl (Apresoline) 10 mg Q4H PRN IV bp over 160 syst 07/20/19 02:00 08/15/19 13:59 Hydralazine HCl (Apresoline) 25 mg Q6HR ORAL 07/20/19 06:00 08/18/19 18:29 Levofloxacin 100 ml @ 100 mls/hr Q48H IVPB 07/21/19 15:00 07/24/19 14:59 Lorazepam (Ativan 2mg/ml 1ml) 2 mg Q2H PRN IV agitation 07/20/19 02:00 07/23/19 13:59 Metoclopramide HCl (Reglan) 10 mg Q6H PRN IVP Nausea & Vomiting 07/20/19 01:45 08/15/19 13:44 Morphine Sulfate (Morphine Sulfate) 4 mg Q4H PRN IVP Severe Pain (Pain Scale 7-10) 07/20/19 02:00 07/23/19 13:59 Nitroglycerin (Ntg) 1 patch Q24H TDERMAL 07/20/19 06:00 08/19/19 05:59 Pantoprazole (Protonix) 40 mg EVERY 12 HOURS IVP 07/20/19 09:00 08/15/19 20:59 07/20/19 08:23 Sennosides (Senokot) 8.6 mg BIDPRN PRN ORAL Constipation 07/20/19 13:45 08/15/19 13:44 Subjective ROS Limited/Unobtainable: No Allergies: Coded Allergies: LISINOPRIL (Verified Allergy, Severe, Shortness of Breath, 07/02/19) THROAT SWELLS UP PENICILLINS (Verified Allergy, Severe, throat swelling, 07/17/19) tolerated Ancef x1 07/16/19 Uncoded Allergies: shellfish (Allergy, Severe, 02/06/19) shortness of breath, vomiting, throat swelling Objective Last 24 Hour Vital Signs Date Time Temp Pulse Resp B/P (MAP) Pulse Ox O2 Delivery O2 Flow Rate FiO2 07/22/19 08:00 98.6 107 23 106/58 (74) 100 07/22/19 06:00 109/55 07/22/19 05:14 109/55 07/22/19 04:00 105 07/22/19 04:00 Nasal Cannula 2.0 07/22/19 04:00 97.9 103 20 107/66 (80) 100 07/22/19 00:00 Nasal Cannula 2.0 07/22/19 00:00 98.9 99 20 101/56 (71) 99 07/22/19 00:00 101/56 07/22/19 00:00 99 07/21/19 21:00 110 118/61 07/21/19 20:00 Nasal Cannula 2.0 07/21/19 20:00 98.1 110 19 118/61 (80) 100 07/21/19 20:00 112 07/21/19 19:27 97 Room Air 21 07/21/19 19:27 111 20 97 Room Air 21 07/21/19 18:23 137/62 07/21/19 16:00 99.2 107 19 137/71 (93) 100 07/21/19 16:00 105 07/21/19 16:00 Nasal Cannula 2.0 07/21/19 12:00 113 07/21/19 12:00 99.4 112 20 113/56 (75) 100 07/21/19 12:00 Nasal Cannula 2.0 Intake and Output 07/21/19 07/22/19 19:00 07:00 Intake Total 100 ml Output Total 50 ml Balance 100 ml -50 ml IV Total 100 ml Gastric Drainage Total 50 ml Laboratory Tests 07/22/19 03:22: White Blood Count 10.2, Red Blood Count 3.45L, Hemoglobin 11.7L, Hematocrit 35.9L, Mean Corpuscular Volume 104H, Mean Corpuscular Hemoglobin 33.8H, Mean Corpuscular Hemoglobin Concent 32.5, Red Cell Distribution Width 14.2, Platelet Count 92L, Mean Platelet Volume 9.7, Neutrophils (%) (Auto) , Lymphocytes (%) ( Auto) , Monocytes (%) (Auto) , Eosinophils (%) (Auto) , Basophils (%) (Auto) , Differential Total Cells Counted 100, Neutrophils % (Manual) 81H, Lymphocytes % (Manual) 9L, Monocytes % (Manual) 7, Eosinophils % (Manual) 3, Basophils % ( Manual) 0, Band Neutrophils 0, Platelet Estimate DecreasedL, Platelet Morphology Normal, Hypochromasia 1+, Anisocytosis 1+, Macrocytosis 1+, Sodium Level 147H, Potassium Level 4.8, Chloride Level 104, Carbon Dioxide Level 34H, Anion Gap 10, Blood Urea Nitrogen 76H, Creatinine 12.3H, Estimat Glomerular Filtration Rate 5.3, Glucose Level 85, Calcium Level 8.8 Current Medications Medications (Trade) Dose Ordered Sig/David Route PRN Reason Start Time Stop Time Status Last Admin Dose Admin Acetaminophen (Tylenol) 650 mg Q4H PRN ORAL Fever 07/20/19 02:00 08/15/19 13:59 Acetaminophen (Tylenol) 650 mg Q4H PRN RECTAL FEVER 07/20/19 01:45 08/15/19 13:44 Bacitracin (Bacitracin 15gm tube) 1 applic THREE TIMES A DAY TOPIC 07/22/19 09:00 08/21/19 08:59 07/22/19 09:06 Carvedilol (Coreg) 25 mg EVERY 12 HOURS NG 07/20/19 21:00 08/17/19 09:59 07/21/19 21:00 Clonidine HCl (Catapres Tab) 0.1 mg Q4H PRN NG bp 160 syst 07/21/19 12:45 08/20/19 12:44 Dextrose (Dextrose 50%) 25 ml Q30M PRN IV Hypoglycemia 07/20/19 01:30 08/15/19 13:59 Dextrose (Dextrose 50%) 50 ml Q30M PRN IV Hypoglycemia 07/20/19 01:30 08/15/19 13:59 Heparin Sodium (Porcine) (Heparin 5000 units/ml) 5,000 units EVERY 8 HOURS SUBQ 07/20/19 06:00 08/15/19 13:59 Hydralazine HCl (Apresoline) 10 mg Q4H PRN IV bp over 180 syst 07/21/19 14:00 08/15/19 13:59 Hydralazine HCl (Apresoline) 25 mg Q6HR NG 07/20/19 12:00 08/18/19 18:29 07/21/19 18:23 Levofloxacin 100 ml @ 100 mls/hr Q48H IVPB 07/21/19 15:00 07/24/19 14:59 07/21/19 15:09 Lorazepam (Ativan 2mg/ml 1ml) 2 mg Q2H PRN IV agitation 07/20/19 02:00 07/23/19 13:59 Metoclopramide HCl (Reglan) 10 mg Q8H PRN IVP Nausea & Vomiting 07/21/19 12:45 08/20/19 12:44 Morphine Sulfate (Morphine Sulfate) 4 mg Q4H PRN IVP Severe Pain (Pain Scale 7-10) 07/20/19 02:00 07/23/19 13:59 Nitroglycerin (Ntg) 1 patch Q24H TDERMAL 07/20/19 06:00 08/19/19 05:59 07/22/19 05:14 Pantoprazole (Protonix) 40 mg EVERY 12 HOURS IVP 07/21/19 21:00 08/20/19 20:59 07/21/19 21:01 Sennosides (Senokot) 8.6 mg BIDPRN PRN ORAL Constipation 07/20/19 13:45 08/15/19 13:44 Asher Vu MD Jul 22, 2019 10:09
[2019-07-22] MEDS ORDERED: NS 275ml ONE (10:11)
--- NOTE | 2019-07-22 11:06 | Nephrology Progress Note ---
Assessment/Plan Problem List: (1) ESRD (end stage renal disease) (2) Acute respiratory failure (3) Cardiac arrest (4) Diabetes mellitus (5) Cardiomyopathy Assessment interoperative cardiac arrest Cardiomyopathy and Low ejfx ESRD- high K BP low at this time s/p Asystole in OR Plan on dialysis now adjust BP meds self extubated 07/[address] eval PRN BP meds adjust coreg dose HD next 07/22 2D echo noted per orders Subjective ROS Limited/Unobtainable: No Constitutional: Reports: malaise, weakness Objective Objective Last 24 Hour Vital Signs Date Time Temp Pulse Resp B/P (MAP) Pulse Ox O2 Delivery O2 Flow Rate FiO2 07/22/19 08:00 Nasal Cannula 2.0 07/22/19 08:00 98.6 107 23 106/58 (74) 100 07/22/19 07:46 109 07/22/19 06:00 109/55 07/22/19 05:14 109/55 07/22/19 04:00 105 07/22/19 04:00 Nasal Cannula 2.0 07/22/19 04:00 97.9 103 20 107/66 (80) 100 07/22/19 00:00 Nasal Cannula 2.0 07/22/19 00:00 98.9 99 20 101/56 (71) 99 07/22/19 00:00 101/56 07/22/19 00:00 99 07/21/19 21:00 110 118/61 07/21/19 20:00 Nasal Cannula 2.0 07/21/19 20:00 98.1 110 19 118/61 (80) 100 07/21/19 20:00 112 07/21/19 19:27 97 Room Air 21 07/21/19 19:27 111 20 97 Room Air 21 07/21/19 18:23 137/62 07/21/19 16:00 99.2 107 19 137/71 (93) 100 07/21/19 16:00 105 07/21/19 16:00 Nasal Cannula 2.0 07/21/19 12:00 113 07/21/19 12:00 99.4 112 20 113/56 (75) 100 07/21/19 12:00 Nasal Cannula 2.0 Intake and Output 07/21/19 07/22/19 19:00 07:00 Intake Total 100 ml Output Total 50 ml Balance 100 ml -50 ml IV Total 100 ml Gastric Drainage Total 50 ml Laboratory Tests 07/22/19 03:22: White Blood Count 10.2, Red Blood Count 3.45L, Hemoglobin 11.7L, Hematocrit 35.9L, Mean Corpuscular Volume 104H, Mean Corpuscular Hemoglobin 33.8H, Mean Corpuscular Hemoglobin Concent 32.5, Red Cell Distribution Width 14.2, Platelet Count 92L, Mean Platelet Volume 9.7, Neutrophils (%) (Auto) , Lymphocytes (%) ( Auto) , Monocytes (%) (Auto) , Eosinophils (%) (Auto) , Basophils (%) (Auto) , Differential Total Cells Counted 100, Neutrophils % (Manual) 81H, Lymphocytes % (Manual) 9L, Monocytes % (Manual) 7, Eosinophils % (Manual) 3, Basophils % ( Manual) 0, Band Neutrophils 0, Platelet Estimate DecreasedL, Platelet Morphology Normal, Hypochromasia 1+, Anisocytosis 1+, Macrocytosis 1+, Sodium Level 147H, Potassium Level 4.8, Chloride Level 104, Carbon Dioxide Level 34H, Anion Gap 10, Blood Urea Nitrogen 76H, Creatinine 12.3H, Estimat Glomerular Filtration Rate 5.3, Glucose Level 85, Calcium Level 8.8 Height (Feet): 5 Height (Inches): 5.50 Weight (Pounds): 162 General Appearance: no apparent distress EENT: other - NGT+ Cardiovascular: tachycardia Respiratory/Chest: decreased breath sounds Objective no change Daniel Delgadillo MD Jul 22, 2019 11:05
--- NOTE | 2019-07-22 11:15 | Surgery Progress Note ---
Surgery Progress Note Subjective Procedure Performed 1. excision of scrotal lesion - aborted Symptoms: improved Objective Last 24 Hour Vital Signs Date Time Temp Pulse Resp B/P (MAP) Pulse Ox O2 Delivery O2 Flow Rate FiO2 07/22/19 08:00 Nasal Cannula 2.0 07/22/19 08:00 98.6 107 23 106/58 (74) 100 07/22/19 07:46 109 07/22/19 06:00 109/55 07/22/19 05:14 109/55 07/22/19 04:00 105 07/22/19 04:00 Nasal Cannula 2.0 07/22/19 04:00 97.9 103 20 107/66 (80) 100 07/22/19 00:00 Nasal Cannula 2.0 07/22/19 00:00 98.9 99 20 101/56 (71) 99 07/22/19 00:00 101/56 07/22/19 00:00 99 07/21/19 21:00 110 118/61 07/21/19 20:00 Nasal Cannula 2.0 07/21/19 20:00 98.1 110 19 118/61 (80) 100 07/21/19 20:00 112 07/21/19 19:27 97 Room Air 21 07/21/19 19:27 111 20 97 Room Air 21 07/21/19 18:23 137/62 07/21/19 16:00 99.2 107 19 137/71 (93) 100 07/21/19 16:00 105 07/21/19 16:00 Nasal Cannula 2.0 07/21/19 12:00 113 07/21/19 12:00 99.4 112 20 113/56 (75) 100 07/21/19 12:00 Nasal Cannula 2.0 I&O Intake and Output 07/21/19 07/22/19 19:00 07:00 Intake Total 100 ml Output Total 50 ml Balance 100 ml -50 ml IV Total 100 ml Gastric Drainage Total 50 ml Dressing: saturated Wound: clean Cardiovascular: RSR Respiratory: clear Abdomen: soft, non-tender, present bowel sounds Extremities: no edema, no tenderness, no cyanosis Laboratory Tests Test 07/22/19 03:22 White Blood Count 10.2 K/UL (4.8-10.8) Red Blood Count 3.45 M/UL (4.70-6.10) L Hemoglobin 11.7 G/DL (14.2-18.0) L Hematocrit 35.9 % (42.0-52.0) L Mean Corpuscular Volume 104 FL (80-99) H Mean Corpuscular Hemoglobin 33.8 PG (27.0-31.0) H Mean Corpuscular Hemoglobin Concent 32.5 G/DL (32.0-36.0) Red Cell Distribution Width 14.2 % (11.6-14.8) Platelet Count 92 K/UL (150-450) L Mean Platelet Volume 9.7 FL (6.5-10.1) Neutrophils (%) (Auto) % (45.0-75.0) Lymphocytes (%) (Auto) % (20.0-45.0) Monocytes (%) (Auto) % (1.0-10.0) Eosinophils (%) (Auto) % (0.0-3.0) Basophils (%) (Auto) % (0.0-2.0) Differential Total Cells Counted 100 Neutrophils % (Manual) 81 % (45-75) H Lymphocytes % (Manual) 9 % (20-45) L Monocytes % (Manual) 7 % (1-10) Eosinophils % (Manual) 3 % (0-3) Basophils % (Manual) 0 % (0-2) Band Neutrophils 0 % (0-8) Platelet Estimate Decreased L Platelet Morphology Normal Hypochromasia 1+ Anisocytosis 1+ Macrocytosis 1+ Sodium Level 147 MMOL/L (136-145) H Potassium Level 4.8 MMOL/L (3.5-5.1) Chloride Level 104 MMOL/L (98-107) Carbon Dioxide Level 34 MMOL/L (21-32) H Anion Gap 10 mmol/L (5-15) Blood Urea Nitrogen 76 mg/dL (7-18) H Creatinine 12.3 MG/DL (0.55-1.30) H Estimat Glomerular Filtration Rate 5.3 mL/min (>60) Glucose Level 85 MG/DL (74-106) Calcium Level 8.8 MG/DL (8.5-10.1) Plan Problems: (1) Scrotal lesion Assessment & Plan: Continue with 3 times daily dressings okay for bacitracin and Xeroform gauze (2) Cardiac arrest Assessment & Plan: Etiology unknown pending echo appreciate cardiology input Continue current care extubated abg okay hold diet as failed swallow eval tube feeds via ng tube thank you Thank you will follow with recommendations Zenon Galloway Jul 22, 2019 11:14
[2019-07-22 12:00] VITALS: BP 99/61
[2019-07-22] MEDS: HydrALAZINE 10mg Tab NG SCH ×2 (12:00→18:00)
[2019-07-22] MEDS: Metoclopramide 10mg/10ml Liq NG SCH ×3 (13:14→23:55)
--- NOTE | 2019-07-22 14:43 | Internal Med Progress Note ---
Subjective Date of Service: Jul 22, 2019 Physician Name Michael Perez Attending Physician Zuhair Singleton MD Current Medications Medications (Trade) Dose Ordered Sig/David Route PRN Reason Start Time Stop Time Status Last Admin Dose Admin Acetaminophen (Tylenol) 650 mg Q4H PRN ORAL Fever 07/20/19 02:00 08/15/19 13:59 Acetaminophen (Tylenol) 650 mg Q4H PRN RECTAL FEVER 07/20/19 01:45 08/15/19 13:44 Bacitracin (Bacitracin 15gm tube) 1 applic THREE TIMES A DAY TOPIC 07/22/19 09:00 08/21/19 08:59 07/22/19 13:14 Carvedilol (Coreg) 25 mg EVERY 12 HOURS NG 07/20/19 21:00 08/17/19 09:59 07/21/19 21:00 Dextrose (Dextrose 50%) 25 ml Q30M PRN IV Hypoglycemia 07/20/19 01:30 08/15/19 13:59 Dextrose (Dextrose 50%) 50 ml Q30M PRN IV Hypoglycemia 07/20/19 01:30 08/15/19 13:59 Heparin Sodium (Porcine) (Heparin 5000 units/ml) 5,000 units EVERY 8 HOURS SUBQ 07/20/19 06:00 08/15/19 13:59 Hydralazine HCl (Apresoline) 10 mg Q4H PRN IV bp over 160 syst 07/22/19 12:00 08/15/19 11:59 Hydralazine HCl (Apresoline) 10 mg Q6HR NG 07/22/19 12:00 08/18/19 18:29 Levofloxacin 100 ml @ 100 mls/hr Q48H IVPB 07/21/19 15:00 07/24/19 14:59 07/21/19 15:09 Lorazepam (Ativan 2mg/ml 1ml) 2 mg Q2H PRN IV agitation 07/20/19 02:00 07/23/19 13:59 Metoclopramide HCl (Reglan) 5 mg EVERY 6 HOURS NG 07/22/19 12:00 08/21/19 11:59 07/22/19 13:14 Metoclopramide HCl (Reglan) 10 mg Q8H PRN IVP Nausea & Vomiting 07/21/19 12:45 08/20/19 12:44 Morphine Sulfate (Morphine Sulfate) 4 mg Q4H PRN IVP Severe Pain (Pain Scale 7-10) 07/20/19 02:00 07/23/19 13:59 Nitroglycerin (Ntg) 1 patch Q24H TDERMAL 07/20/19 06:00 08/19/19 05:59 07/22/19 05:14 Pantoprazole (Protonix) 40 mg EVERY 12 HOURS IVP 07/21/19 21:00 08/20/19 20:59 07/21/19 21:01 Sennosides (Senokot) 8.6 mg BIDPRN PRN ORAL Constipation 07/20/19 13:45 08/15/19 13:44 Allergies: Coded Allergies: LISINOPRIL (Verified Allergy, Severe, Shortness of Breath, 07/02/19) THROAT SWELLS UP PENICILLINS (Verified Allergy, Severe, throat swelling, 07/17/19) tolerated Ancef x1 07/16/19 Uncoded Allergies: shellfish (Allergy, Severe, 02/06/19) shortness of breath, vomiting, throat swelling ROS Limited/Unobtainable: Yes Subjective 49 YO M admitted for scrotal fistulotomy. S/P cardiac arrest. Self extubated . Cover for Int med-Dr Singleton. PATRICK Objective Last Vital Signs Date Time Temp Pulse Resp B/P (MAP) Pulse Ox O2 Delivery O2 Flow Rate FiO2 07/22/19 12:00 99/61 07/22/19 12:00 98.5 109 24 100 07/22/19 12:00 Nasal Cannula 2.0 07/21/19 19:27 21 Laboratory Tests Test 07/22/19 03:22 White Blood Count 10.2 K/UL (4.8-10.8) Red Blood Count 3.45 M/UL (4.70-6.10) L Hemoglobin 11.7 G/DL (14.2-18.0) L Hematocrit 35.9 % (42.0-52.0) L Mean Corpuscular Volume 104 FL (80-99) H Mean Corpuscular Hemoglobin 33.8 PG (27.0-31.0) H Mean Corpuscular Hemoglobin Concent 32.5 G/DL (32.0-36.0) Red Cell Distribution Width 14.2 % (11.6-14.8) Platelet Count 92 K/UL (150-450) L Mean Platelet Volume 9.7 FL (6.5-10.1) Neutrophils (%) (Auto) % (45.0-75.0) Lymphocytes (%) (Auto) % (20.0-45.0) Monocytes (%) (Auto) % (1.0-10.0) Eosinophils (%) (Auto) % (0.0-3.0) Basophils (%) (Auto) % (0.0-2.0) Differential Total Cells Counted 100 Neutrophils % (Manual) 81 % (45-75) H Lymphocytes % (Manual) 9 % (20-45) L Monocytes % (Manual) 7 % (1-10) Eosinophils % (Manual) 3 % (0-3) Basophils % (Manual) 0 % (0-2) Band Neutrophils 0 % (0-8) Platelet Estimate Decreased L Platelet Morphology Normal Hypochromasia 1+ Anisocytosis 1+ Macrocytosis 1+ Sodium Level 147 MMOL/L (136-145) H Potassium Level 4.8 MMOL/L (3.5-5.1) Chloride Level 104 MMOL/L (98-107) Carbon Dioxide Level 34 MMOL/L (21-32) H Anion Gap 10 mmol/L (5-15) Blood Urea Nitrogen 76 mg/dL (7-18) H Creatinine 12.3 MG/DL (0.55-1.30) H Estimat Glomerular Filtration Rate 5.3 mL/min (>60) Glucose Level 85 MG/DL (74-106) Calcium Level 8.8 MG/DL (8.5-10.1) Intake and Output 07/21/19 07/22/19 19:00 07:00 Intake Total 100 ml Output Total 50 ml Balance 100 ml -50 ml IV Total 100 ml Gastric Drainage Total 50 ml Objective PHYSICAL EXAMINATION: GENERAL: The patient is well-developed well-nourished male, intubated and sedated in the intensive care unit. CHEST: nasal canula; Diffuse coarse breath sounds bilaterally without wheezes CARDIOVASCULAR: Regular rhythm and rate. S1, S2 are normal without murmurs, rubs, or gallops. ABDOMEN: Soft, nontender, nondistended. Positive bowel sounds. No evidence of hepatosplenomegaly. Currently, no rebound or guarding noted. EXTREMITIES: Negative for clubbing, cyanosis, edema. NEUROLOGIC: Unable to assess. Assessment/Plan Assessment/Plan ASSESSMENT: This is a 49-year-old male. 1. Scrotal fistula. 2. Status post cardiac arrest. 3. Renal failure. 4. Hypertension. 5. Gout. 6. End stage renal disease on hemodialysis. 7. Cardiomyopathy 8. Systolic CHF 9. dysphagia TREATMENT: 1. Scrotal fistula. Surgery was aborted on 07/16/2019. Follow recommendations of Surgery, Dr. Galloway. 2. Status post cardiac arrest. The patient is S/P self-extubation 07/18/19. A Cardiology consultation has been obtained with Dr. Emmanuel Cortés. Follow recommendations of Cardiology. 3. End stage renal disease. A Nephrology consultation has been obtained with Dr. Daniel Delgadillo. Hemodialysis 07/22/19. Follow recommendations of Nephrology. 4. Hypertension. 5. Gout. 6. PATRICK status 7. Failed swallow eval-continue NG feeding per GI=Michael Crowder MD Jul 22, 2019 14:43
--- NOTE | 2019-07-22 15:49 | General Progress Note ---
Assessment/Plan Status: unchanged Assessment/Plan: Assessment/Plan Problems: (1) Scrotal lesion ICD Codes: N50.9 - Disorder of male genital organs, unspecified SNOMED: 35201879 (2) Cardiac arrest ICD Codes: I46.9 - Cardiac arrest, cause unspecified SNOMED: 243294352 (3) Anemia ICD Codes: D64.9 - Anemia, unspecified SNOMED: 202307414 (4) Constipation ICD Codes: K59.00 - Constipation, unspecified (5) N/V, TF intolerance Assessment/Plan Clamp NGT. If stable, will begin TF in am follow up cardiology recs Anemia work-up Occult blood stool to rule out any GI bleed prn transfusions ppi IVF per renal Subjective Allergies: Coded Allergies: LISINOPRIL (Verified Allergy, Severe, Shortness of Breath, 07/02/19) THROAT SWELLS UP PENICILLINS (Verified Allergy, Severe, throat swelling, 07/17/19) tolerated Ancef x1 07/16/19 Uncoded Allergies: shellfish (Allergy, Severe, 02/06/19) shortness of breath, vomiting, throat swelling Subjective Above noted opens eyes NGT to suction Objective Last 24 Hour Vital Signs Date Time Temp Pulse Resp B/P (MAP) Pulse Ox O2 Delivery O2 Flow Rate FiO2 07/22/19 12:00 99/61 07/22/19 12:00 98.5 109 24 99/61 (74) 100 07/22/19 12:00 Nasal Cannula 2.0 07/22/19 11:41 108 07/22/19 08:00 Nasal Cannula 2.0 07/22/19 08:00 98.6 107 23 106/58 (74) 100 07/22/19 07:46 109 07/22/19 06:00 109/55 07/22/19 05:14 109/55 07/22/19 04:00 105 07/22/19 04:00 Nasal Cannula 2.0 07/22/19 04:00 97.9 103 20 107/66 (80) 100 07/22/19 00:00 Nasal Cannula 2.0 07/22/19 00:00 98.9 99 20 101/56 (71) 99 07/22/19 00:00 101/56 07/22/19 00:00 99 07/21/19 21:00 110 118/61 07/21/19 20:00 Nasal Cannula 2.0 07/21/19 20:00 98.1 110 19 118/61 (80) 100 07/21/19 20:00 112 07/21/19 19:27 97 Room Air 21 07/21/19 19:27 111 20 97 Room Air 21 07/21/19 18:23 137/62 07/21/19 16:00 99.2 107 19 137/71 (93) 100 07/21/19 16:00 105 07/21/19 16:00 Nasal Cannula 2.0 Intake and Output 07/21/19 07/22/19 19:00 07:00 Intake Total 100 ml Output Total 50 ml Balance 100 ml -50 ml IV Total 100 ml Gastric Drainage Total 50 ml Laboratory Tests 07/22/19 03:22: White Blood Count 10.2, Red Blood Count 3.45L, Hemoglobin 11.7L, Hematocrit 35.9L, Mean Corpuscular Volume 104H, Mean Corpuscular Hemoglobin 33.8H, Mean Corpuscular Hemoglobin Concent 32.5, Red Cell Distribution Width 14.2, Platelet Count 92L, Mean Platelet Volume 9.7, Neutrophils (%) (Auto) , Lymphocytes (%) ( Auto) , Monocytes (%) (Auto) , Eosinophils (%) (Auto) , Basophils (%) (Auto) , Differential Total Cells Counted 100, Neutrophils % (Manual) 81H, Lymphocytes % (Manual) 9L, Monocytes % (Manual) 7, Eosinophils % (Manual) 3, Basophils % ( Manual) 0, Band Neutrophils 0, Platelet Estimate DecreasedL, Platelet Morphology Normal, Hypochromasia 1+, Anisocytosis 1+, Macrocytosis 1+, Sodium Level 147H, Potassium Level 4.8, Chloride Level 104, Carbon Dioxide Level 34H, Anion Gap 10, Blood Urea Nitrogen 76H, Creatinine 12.3H, Estimat Glomerular Filtration Rate 5.3, Glucose Level 85, Calcium Level 8.8 Height (Feet): 5 Height (Inches): 5.50 Weight (Pounds): 162 Objective Debilitated AA man sleepy / arousable NCAT supple CTA RR abd soft no edema Thomas Davis MD Jul 22, 2019 15:49
--- NOTE | 2019-07-22 15:50 | NUR ---
NURSE NOTES: NGT clumped (d/c low intermittent suction) per Dr. Ryan tobin.
[2019-07-22 16:00] VITALS: BP 94/60
--- NOTE | 2019-07-22 18:03 | Cardiology Progress Note ---
Assessment/Plan Assessment/Plan noted labs, telemetry sinus rhythm, stable Subjective Subjective The patient is lethargic, he opens his eyes and reacts to verbal stimuli, but does not follow commands Objective Last 24 Hour Vital Signs Date Time Temp Pulse Resp B/P (MAP) Pulse Ox O2 Delivery O2 Flow Rate FiO2 07/22/19 17:08 113 07/22/19 16:00 Nasal Cannula 2.0 07/22/19 16:00 98.2 114 23 94/60 (71) 100 07/22/19 12:00 99/61 07/22/19 12:00 98.5 109 24 99/61 (74) 100 07/22/19 12:00 Nasal Cannula 2.0 07/22/19 11:41 108 07/22/19 08:00 Nasal Cannula 2.0 07/22/19 08:00 98.6 107 23 106/58 (74) 100 07/22/19 07:46 109 07/22/19 06:00 109/55 07/22/19 05:14 109/55 07/22/19 04:00 105 07/22/19 04:00 Nasal Cannula 2.0 07/22/19 04:00 97.9 103 20 107/66 (80) 100 07/22/19 00:00 Nasal Cannula 2.0 07/22/19 00:00 98.9 99 20 101/56 (71) 99 07/22/19 00:00 101/56 07/22/19 00:00 99 07/21/19 21:00 110 118/61 07/21/19 20:00 Nasal Cannula 2.0 07/21/19 20:00 98.1 110 19 118/61 (80) 100 07/21/19 20:00 112 07/21/19 19:27 97 Room Air 21 07/21/19 19:27 111 20 97 Room Air 21 07/21/19 18:23 137/62 General Appearance: lethargic EENT: other - eyes closed Neck: JVD Rhythm: ST Cardiovascular: tachycardia Respiratory/Chest: crackles/rales Abdomen: hypoactive bowel sounds Extremities: normal capillary refill Intake and Output 07/21/19 07/22/19 19:00 07:00 Intake Total 100 ml Output Total 50 ml Balance 100 ml -50 ml IV Total 100 ml Gastric Drainage Total 50 ml Laboratory Tests Test 07/22/19 03:22 White Blood Count 10.2 K/UL (4.8-10.8) Red Blood Count 3.45 M/UL (4.70-6.10) L Hemoglobin 11.7 G/DL (14.2-18.0) L Hematocrit 35.9 % (42.0-52.0) L Mean Corpuscular Volume 104 FL (80-99) H Mean Corpuscular Hemoglobin 33.8 PG (27.0-31.0) H Mean Corpuscular Hemoglobin Concent 32.5 G/DL (32.0-36.0) Red Cell Distribution Width 14.2 % (11.6-14.8) Platelet Count 92 K/UL (150-450) L Mean Platelet Volume 9.7 FL (6.5-10.1) Neutrophils (%) (Auto) % (45.0-75.0) Lymphocytes (%) (Auto) % (20.0-45.0) Monocytes (%) (Auto) % (1.0-10.0) Eosinophils (%) (Auto) % (0.0-3.0) Basophils (%) (Auto) % (0.0-2.0) Differential Total Cells Counted 100 Neutrophils % (Manual) 81 % (45-75) H Lymphocytes % (Manual) 9 % (20-45) L Monocytes % (Manual) 7 % (1-10) Eosinophils % (Manual) 3 % (0-3) Basophils % (Manual) 0 % (0-2) Band Neutrophils 0 % (0-8) Platelet Estimate Decreased L Platelet Morphology Normal Hypochromasia 1+ Anisocytosis 1+ Macrocytosis 1+ Sodium Level 147 MMOL/L (136-145) H Potassium Level 4.8 MMOL/L (3.5-5.1) Chloride Level 104 MMOL/L (98-107) Carbon Dioxide Level 34 MMOL/L (21-32) H Anion Gap 10 mmol/L (5-15) Blood Urea Nitrogen 76 mg/dL (7-18) H Creatinine 12.3 MG/DL (0.55-1.30) H Estimat Glomerular Filtration Rate 5.3 mL/min (>60) Glucose Level 85 MG/DL (74-106) Calcium Level 8.8 MG/DL (8.5-10.1) Steffany Schroeder MD Jul 22, 2019 18:03
--- NOTE | 2019-07-22 19:24 | NUR ---
HAND-OFF: Report given to Marie Cuellar. Pt. remain stable.
--- NOTE | 2019-07-22 19:30 | NUR ---
NURSE NOTES: Pt is resting on the bed and awake and confused. Family; stays at bedside. On O2 2L via nasal cannula and SaO2; 99% noted. Keep NGT on Rt. nares and clamped. No sign of nausea/vomiting. IV site intact and no sign of infiltration noted. Dressing is clean and dry on surgical scrotum wound area. Repositioned. Pt has Lt. upper arm AV shunt and present of bruit and thrills. Pt got the HD today during day shift. Placed fall precaution. Will continue to care plan.
[2019-07-22 20:00] VITALS: BP 92/45
[2019-07-23] VITALS: BP 126/74
[2019-07-23 04:00] VITALS: BP 130/79
[2019-07-23 05:23] LABS: HEMOGLOBIN 11.5 G/DL (14.2-18.0); MEAN CORPUSCULAR VOLUME 104 FL (80-99); PLATELET COUNT 96 K/UL (150-450); RED BLOOD COUNT 3.36 M/UL (4.70-6.10); RED CELL DISTRIBUTION WIDTH 13.6 % (11.6-14.8); WHITE BLOOD COUNT 10.8 K/UL (4.8-10.8)
[2019-07-23] MEDS: Nitroglycerin Patch 0.4mg TDERMAL SCH (05:47)
[2019-07-23 05:56] LABS: ALANINE AMINOTRANSFERASE 8 U/L (12-78); ALBUMIN 2.9 G/DL (3.4-5.0); ALBUMIN/GLOBULIN RATIO 0.6 (1.0-2.7); ALKALINE PHOSPHATASE 107 U/L (46-116); ANION GAP 12 mmol/L (5-15); ASPARTATE AMINO TRANSFERASE 17 U/L (15-37); BILIRUBIN,TOTAL 0.7 MG/DL (0.2-1.0); BLOOD UREA NITROGEN 56 mg/dL (7-18); CALCIUM 8.8 MG/DL (8.5-10.1); CARBON DIOXIDE 32 MMOL/L (21-32); CHLORIDE 99 MMOL/L (98-107); CREATININE 9.9 MG/DL (0.55-1.30); PHOSPHORUS 8.1 MG/DL (2.5-4.9); POTASSIUM 4.7 MMOL/L (3.5-5.1); SODIUM 143 MMOL/L (136-145)
[2019-07-23] MEDS: Heparin 5000 units/ml inj SUBQ SCH ×3 (06:00→22:00)
[2019-07-23] MEDS: HydrALAZINE 10mg Tab NG SCH ×4 (06:00→22:00)
[2019-07-23] MEDS: Metoclopramide 10mg/10ml Liq NG SCH ×4 (06:00→23:40)
--- NOTE | 2019-07-23 07:18 | NUR ---
HAND-OFF: Report given to JOCE Benton. Pt is resting on the bed and no sign of acute distress noted.
--- NOTE | 2019-07-23 07:19 | NUR ---
NURSE NOTES: Received bedside report from Marie HOBSON. Patient observed in bed, opens eyes to verbal stimuli. On O2 at 2LPM via NC; no respiratory distress. NGT noted on right nares, clamped. HOB elevated. AV shunt at left upper arm with bruit/thrill noted. IV site at right FA 20g intact and patent. No s/s of pain/discomfort. Safety precautions in place; bed locked, alarmed, and in lowest position. Call light left within reach. Will continue to monitor.
[2019-07-23 08:00] VITALS: BP 104/65
[2019-07-23] MEDS: Pantoprazole Inj IVP SCH ×2 (08:04→20:42)
[2019-07-23] MEDS: Bacitracin Oint 15gm Tube TOPIC SCH ×3 (08:04→17:12)
[2019-07-23] MEDS: Carvedilol 25mg Tab NG SCH ×2 (08:54→20:43)
--- NOTE | 2019-07-23 09:38 | General Progress Note ---
Assessment/Plan Status: unchanged Assessment/Plan: Assessment/Plan Problems: (1) Scrotal lesion ICD Codes: N50.9 - Disorder of male genital organs, unspecified SNOMED: 07179643 (2) Cardiac arrest ICD Codes: I46.9 - Cardiac arrest, cause unspecified SNOMED: 218574523 (3) Anemia ICD Codes: D64.9 - Anemia, unspecified SNOMED: 304759970 (4) Constipation ICD Codes: K59.00 - Constipation, unspecified (5) N/V, TF intolerance Assessment/Plan start NGTF follow up cardiology recs Anemia work-up Occult blood stool to rule out any GI bleed prn transfusions ppi IVF per renal Subjective ROS Limited/Unobtainable: No Allergies: Coded Allergies: LISINOPRIL (Verified Allergy, Severe, Shortness of Breath, 07/02/19) THROAT SWELLS UP PENICILLINS (Verified Allergy, Severe, throat swelling, 07/17/19) tolerated Ancef x1 07/16/19 Uncoded Allergies: shellfish (Allergy, Severe, 02/06/19) shortness of breath, vomiting, throat swelling Objective Last 24 Hour Vital Signs Date Time Temp Pulse Resp B/P (MAP) Pulse Ox O2 Delivery O2 Flow Rate FiO2 07/23/19 08:54 105 104/65 07/23/19 08:00 97.3 105 20 104/65 (78) 96 07/23/19 08:00 Nasal Cannula 2.0 07/23/19 06:00 109/56 07/23/19 05:47 109/56 07/23/19 04:00 Nasal Cannula 2.0 07/23/19 04:00 98.4 112 20 130/79 (96) 100 07/23/19 04:00 122 07/23/19 00:00 Nasal Cannula 2.0 07/23/19 00:00 111 07/23/19 00:00 98.0 112 20 126/74 (91) 100 07/23/19 00:00 126/74 07/22/19 21:00 112 92/45 07/22/19 20:00 98.1 112 23 92/45 (61) 100 07/22/19 20:00 Nasal Cannula 2.0 07/22/19 20:00 115 07/22/19 18:00 94/60 07/22/19 17:08 113 07/22/19 16:00 Nasal Cannula 2.0 07/22/19 16:00 98.2 114 23 94/60 (71) 100 07/22/19 12:00 99/61 07/22/19 12:00 98.5 109 24 99/61 (74) 100 07/22/19 12:00 Nasal Cannula 2.0 07/22/19 11:41 108 Intake and Output 07/22/19 07/23/19 18:59 06:59 Intake Total 2000 ml Output Total 50 ml Balance 1950 ml Hemodialysis 2000 ml Gastric Drainage Total 50 ml Laboratory Tests 07/23/19 03:45: White Blood Count 10.8, Red Blood Count 3.36L, Hemoglobin 11.5L, Hematocrit 35.0L, Mean Corpuscular Volume 104H, Mean Corpuscular Hemoglobin 34.3H, Mean Corpuscular Hemoglobin Concent 33.0, Red Cell Distribution Width 13.6, Platelet Count 96L, Mean Platelet Volume 10.2H, Neutrophils (%) (Auto) , Lymphocytes (%) (Auto) , Monocytes (%) (Auto) , Eosinophils (%) (Auto) , Basophils (%) (Auto) , Neutrophils % (Manual) [Pending], Lymphocytes % (Manual) [Pending], Platelet Estimate [Pending], Platelet Morphology [Pending], Sodium Level 143, Potassium Level 4.7, Chloride Level 99, Carbon Dioxide Level 32, Anion Gap 12, Blood Urea Nitrogen 56H, Creatinine 9.9H, Estimat Glomerular Filtration Rate 6.8, Glucose Level 87, Uric Acid 5.0, Calcium Level 8.8, Phosphorus Level 8.1H, Magnesium Level 2.2, Total Bilirubin 0.7, Aspartate Amino Transf (AST/SGOT) 17, Alanine Aminotransferase (ALT/SGPT) 8L, Alkaline Phosphatase 107, Troponin I 0.039, C- Reactive Protein, Quantitative 3.7H, Pro-B-Type Natriuretic Peptide 07384A, Total Protein 8.0, Albumin 2.9L, Globulin 5.1, Albumin/Globulin Ratio 0.6L Height (Feet): 5 Height (Inches): 5.50 Weight (Pounds): 156 General Appearance: no apparent distress EENT: normal ENT inspection Neck: supple Cardiovascular: normal rate Respiratory/Chest: decreased breath sounds Abdomen: normal bowel sounds, non tender, soft Extremities: non-tender Richy Delarosa MD Jul 23, 2019 09:38
--- NOTE | 2019-07-23 11:04 | Surgery Progress Note ---
Surgery Progress Note Subjective Procedure Performed 1. excision of scrotal lesion - aborted Additional Comments improving alert responsive following commands remembers who I am and can mouth words Objective Last 24 Hour Vital Signs Date Time Temp Pulse Resp B/P (MAP) Pulse Ox O2 Delivery O2 Flow Rate FiO2 07/23/19 08:54 105 104/65 07/23/19 08:28 106 07/23/19 08:00 97.3 105 20 104/65 (78) 96 07/23/19 08:00 Nasal Cannula 2.0 07/23/19 06:00 109/56 07/23/19 05:47 109/56 07/23/19 04:00 Nasal Cannula 2.0 07/23/19 04:00 98.4 112 20 130/79 (96) 100 07/23/19 04:00 122 07/23/19 00:00 Nasal Cannula 2.0 07/23/19 00:00 111 07/23/19 00:00 98.0 112 20 126/74 (91) 100 07/23/19 00:00 126/74 07/22/19 21:00 112 92/45 07/22/19 20:00 98.1 112 23 92/45 (61) 100 07/22/19 20:00 Nasal Cannula 2.0 07/22/19 20:00 115 07/22/19 18:00 94/60 07/22/19 17:08 113 07/22/19 16:00 Nasal Cannula 2.0 07/22/19 16:00 98.2 114 23 94/60 (71) 100 07/22/19 12:00 99/61 07/22/19 12:00 98.5 109 24 99/61 (74) 100 07/22/19 12:00 Nasal Cannula 2.0 07/22/19 11:41 108 I&O Intake and Output 07/22/19 07/23/19 19:00 07:00 Intake Total 2000 ml Output Total 50 ml Balance 1950 ml Hemodialysis 2000 ml Gastric Drainage Total 50 ml Dressing: saturated Wound: clean Cardiovascular: RSR Respiratory: clear Abdomen: soft, non-tender, present bowel sounds Extremities: no tenderness, no cyanosis Laboratory Tests Test 07/23/19 03:45 White Blood Count 10.8 K/UL (4.8-10.8) Red Blood Count 3.36 M/UL (4.70-6.10) L Hemoglobin 11.5 G/DL (14.2-18.0) L Hematocrit 35.0 % (42.0-52.0) L Mean Corpuscular Volume 104 FL (80-99) H Mean Corpuscular Hemoglobin 34.3 PG (27.0-31.0) H Mean Corpuscular Hemoglobin Concent 33.0 G/DL (32.0-36.0) Red Cell Distribution Width 13.6 % (11.6-14.8) Platelet Count 96 K/UL (150-450) L Mean Platelet Volume 10.2 FL (6.5-10.1) H Neutrophils (%) (Auto) % (45.0-75.0) Lymphocytes (%) (Auto) % (20.0-45.0) Monocytes (%) (Auto) % (1.0-10.0) Eosinophils (%) (Auto) % (0.0-3.0) Basophils (%) (Auto) % (0.0-2.0) Differential Total Cells Counted 100 Neutrophils % (Manual) 78 % (45-75) H Lymphocytes % (Manual) 13 % (20-45) L Monocytes % (Manual) 6 % (1-10) Eosinophils % (Manual) 3 % (0-3) Basophils % (Manual) 0 % (0-2) Band Neutrophils 0 % (0-8) Platelet Estimate Decreased L Platelet Morphology Normal Hypochromasia 1+ Macrocytosis 1+ Sodium Level 143 MMOL/L (136-145) Potassium Level 4.7 MMOL/L (3.5-5.1) Chloride Level 99 MMOL/L (98-107) Carbon Dioxide Level 32 MMOL/L (21-32) Anion Gap 12 mmol/L (5-15) Blood Urea Nitrogen 56 mg/dL (7-18) H Creatinine 9.9 MG/DL (0.55-1.30) H Estimat Glomerular Filtration Rate 6.8 mL/min (>60) Glucose Level 87 MG/DL (74-106) Uric Acid 5.0 MG/DL (2.6-7.2) Calcium Level 8.8 MG/DL (8.5-10.1) Phosphorus Level 8.1 MG/DL (2.5-4.9) H Magnesium Level 2.2 MG/DL (1.8-2.4) Total Bilirubin 0.7 MG/DL (0.2-1.0) Aspartate Amino Transf (AST/SGOT) 17 U/L (15-37) Alanine Aminotransferase (ALT/SGPT) 8 U/L (12-78) L Alkaline Phosphatase 107 U/L (46-116) Troponin I 0.039 ng/mL (0.000-0.056) C-Reactive Protein, Quantitative 3.7 mg/dL (0.00-0.90) H Pro-B-Type Natriuretic Peptide 11574 pg/mL (0-125) H Total Protein 8.0 G/DL (6.4-8.2) Albumin 2.9 G/DL (3.4-5.0) L Globulin 5.1 g/dL Albumin/Globulin Ratio 0.6 (1.0-2.7) L Plan Problems: (1) Scrotal lesion Assessment & Plan: Continue with 3 times daily dressings okay for bacitracin and Xeroform gauze (2) Cardiac arrest Assessment & Plan: Etiology unknown pending echo appreciate cardiology input Continue current care extubated abg okay hold diet as failed swallow eval tube feeds via ng tube repeat swallow eval thank you Thank you will follow with recommendations Zenon Galloway Jul 23, 2019 11:04
--- NOTE | 2019-07-23 11:13 | Pulmonology Progress Note ---
Assessment/Plan Problems: (1) Cardiac arrest (2) Acute respiratory failure (3) ESRD (end stage renal disease) (4) Diabetes mellitus (5) Cardiomyopathy (6) Hypertension Assessment/Plan swallow study reviewed, still on NG tube HD by nephrology monitor BP titrate cardiac meds sliding scale diabetic diet meds reviewed Subjective ROS Limited/Unobtainable: Yes - awak Interval Events: awake, not communicating Allergies: Coded Allergies: LISINOPRIL (Verified Allergy, Severe, Shortness of Breath, 07/02/19) THROAT SWELLS UP PENICILLINS (Verified Allergy, Severe, throat swelling, 07/17/19) tolerated Ancef x1 07/16/19 Uncoded Allergies: shellfish (Allergy, Severe, 02/06/19) shortness of breath, vomiting, throat swelling Objective Last 24 Hour Vital Signs Date Time Temp Pulse Resp B/P (MAP) Pulse Ox O2 Delivery O2 Flow Rate FiO2 07/23/19 08:54 105 104/65 07/23/19 08:28 106 07/23/19 08:00 97.3 105 20 104/65 (78) 96 07/23/19 08:00 Nasal Cannula 2.0 07/23/19 06:00 109/56 07/23/19 05:47 109/56 07/23/19 04:00 Nasal Cannula 2.0 07/23/19 04:00 98.4 112 20 130/79 (96) 100 07/23/19 04:00 122 07/23/19 00:00 Nasal Cannula 2.0 07/23/19 00:00 111 07/23/19 00:00 98.0 112 20 126/74 (91) 100 07/23/19 00:00 126/74 07/22/19 21:00 112 92/45 07/22/19 20:00 98.1 112 23 92/45 (61) 100 07/22/19 20:00 Nasal Cannula 2.0 07/22/19 20:00 115 07/22/19 18:00 94/60 07/22/19 17:08 113 07/22/19 16:00 Nasal Cannula 2.0 07/22/19 16:00 98.2 114 23 94/60 (71) 100 07/22/19 12:00 99/61 07/22/19 12:00 98.5 109 24 99/61 (74) 100 07/22/19 12:00 Nasal Cannula 2.0 07/22/19 11:41 108 Intake and Output 07/22/19 07/23/19 19:00 07:00 Intake Total 2000 ml Output Total 50 ml Balance 1950 ml Hemodialysis 2000 ml Gastric Drainage Total 50 ml General Appearance: WD/WN HEENT: normocephalic, anicteric Respiratory/Chest: chest wall non-tender, lungs clear Cardiovascular: normal rate, regular rhythm Abdomen: normal bowel sounds, no organomegaly Genitourinary: normal external genitalia Skin: no rash Neurologic/Psychiatric: geophysical support specialist II-XII grossly normal Laboratory Tests 07/23/19 03:45: White Blood Count 10.8, Red Blood Count 3.36L, Hemoglobin 11.5L, Hematocrit 35.0L, Mean Corpuscular Volume 104H, Mean Corpuscular Hemoglobin 34.3H, Mean Corpuscular Hemoglobin Concent 33.0, Red Cell Distribution Width 13.6, Platelet Count 96L, Mean Platelet Volume 10.2H, Neutrophils (%) (Auto) , Lymphocytes (%) (Auto) , Monocytes (%) (Auto) , Eosinophils (%) (Auto) , Basophils (%) (Auto) , Differential Total Cells Counted 100, Neutrophils % (Manual) 78H, Lymphocytes % (Manual) 13L, Monocytes % (Manual) 6, Eosinophils % (Manual) 3, Basophils % ( Manual) 0, Band Neutrophils 0, Platelet Estimate DecreasedL, Platelet Morphology Normal, Hypochromasia 1+, Macrocytosis 1+, Sodium Level 143, Potassium Level 4.7, Chloride Level 99, Carbon Dioxide Level 32, Anion Gap 12, Blood Urea Nitrogen 56H, Creatinine 9.9H, Estimat Glomerular Filtration Rate 6.8 , Glucose Level 87, Uric Acid 5.0, Calcium Level 8.8, Phosphorus Level 8.1H, Magnesium Level 2.2, Total Bilirubin 0.7, Aspartate Amino Transf (AST/SGOT) 17, Alanine Aminotransferase (ALT/SGPT) 8L, Alkaline Phosphatase 107, Troponin I 0.039, C-Reactive Protein, Quantitative 3.7H, Pro-B-Type Natriuretic Peptide 97584N, Total Protein 8.0, Albumin 2.9L, Globulin 5.1, Albumin/Globulin Ratio 0.6L Current Medications Medications (Trade) Dose Ordered Sig/David Route PRN Reason Start Time Stop Time Status Last Admin Dose Admin Acetaminophen (Tylenol) 650 mg Q4H PRN ORAL Fever 07/20/19 02:00 08/15/19 13:59 Acetaminophen (Tylenol) 650 mg Q4H PRN RECTAL FEVER 07/20/19 01:45 08/15/19 13:44 Bacitracin (Bacitracin 15gm tube) 1 applic THREE TIMES A DAY TOPIC 07/22/19 09:00 08/21/19 08:59 07/23/19 08:04 Carvedilol (Coreg) 25 mg EVERY 12 HOURS NG 07/20/19 21:00 08/17/19 09:59 07/21/19 21:00 Dextrose (Dextrose 50%) 25 ml Q30M PRN IV Hypoglycemia 07/20/19 01:30 08/15/19 13:59 Dextrose (Dextrose 50%) 50 ml Q30M PRN IV Hypoglycemia 07/20/19 01:30 08/15/19 13:59 Heparin Sodium (Porcine) (Heparin 5000 units/ml) 5,000 units EVERY 8 HOURS SUBQ 07/20/19 06:00 08/15/19 13:59 Hydralazine HCl (Apresoline) 10 mg Q4H PRN IV bp over 160 syst 07/22/19 12:00 08/15/19 11:59 Hydralazine HCl (Apresoline) 10 mg Q6HR NG 07/22/19 12:00 08/18/19 18:29 Levofloxacin 100 ml @ 100 mls/hr Q48H IVPB 07/21/19 15:00 07/24/19 14:59 07/21/19 15:09 Lorazepam (Ativan 2mg/ml 1ml) 2 mg Q2H PRN IV agitation 07/20/19 02:00 07/23/19 13:59 Metoclopramide HCl (Reglan) 5 mg EVERY 6 HOURS NG 07/22/19 12:00 08/21/19 11:59 07/22/19 23:55 Metoclopramide HCl (Reglan) 10 mg Q8H PRN IVP Nausea & Vomiting 07/21/19 12:45 08/20/19 12:44 07/23/19 04:10 Morphine Sulfate (Morphine Sulfate) 4 mg Q4H PRN IVP Severe Pain (Pain Scale 7-10) 07/20/19 02:00 07/23/19 13:59 Nitroglycerin (Ntg) 1 patch Q24H TDERMAL 07/20/19 06:00 08/19/19 05:59 07/23/19 05:47 Pantoprazole (Protonix) 40 mg EVERY 12 HOURS IVP 07/21/19 21:00 08/20/19 20:59 07/23/19 08:04 Sennosides (Senokot) 8.6 mg BIDPRN PRN ORAL Constipation 07/20/19 13:45 08/15/19 13:44 Juan Carlos Soto MD Jul 23, 2019 11:13
--- NOTE | 2019-07-23 11:27 | NUR ---
ST NOTES: SWALLOW STATUS: PATIENT NOT ALERT FOR PO TRIALS. PER RN ON 07/21 AND 07/22 PATIENT NPO (PER DR WILL) AND ONLY GETTING NGT FEEDINGS NOW SINCE HE WAS VOMITING. PATIENT HAS A HIGH RISK FOR POOR INTAKE (DUE TO REDUCED ALERTNESS AND VOMITING ISSUES) AND SILENT ASPIRATION RISK BUT NOT READY FOR PO TRIALS NOR MODIFIED BARIUM SWALLOW STUDY. PLAN: CONTINUE WITH NPO AND NONORAL (NGT) FEEDINGS AND ORAL CARE WILL MONITOR FOR PO AND/OR MOD BARIUM SWALLOW STUDY READINESS (PLEASE CALL CALL CIRCUIT WORKER WHEN MORE ALERT) [phone]. JOCE, FELICE, NOT AVAILABLE. REPOSTED NPO AND ORAL CARE AND ASPIRATION PRECAUTIONS WHEN TUBE FEEDINGS RUNNING SIGN. Addendum: 07/23/19 at 1152 by HOLLIE WILLETT CALL CIRCUIT WORKER PER FELICE HOBSON, PATIENT NOT VOMITING NOW AND DR WILL WANTS NGT FEEDINGS FOR NOW.
--- NOTE | 2019-07-23 11:53 | Nephrology Progress Note ---
Assessment/Plan Problem List: (1) ESRD (end stage renal disease) (2) Acute respiratory failure (3) Cardiac arrest (4) Diabetes mellitus (5) Cardiomyopathy Assessment interoperative cardiac arrest Cardiomyopathy and Low ejfx ESRD- high K BP low at this time s/p Asystole in OR Plan on dialysis - next 07/24 add Phos binder start Digoxin adjust BP meds self extubated 07/[address] eval PRN BP meds adjust bp meds dose HD next 07/24 2D echo noted per orders Subjective ROS Limited/Unobtainable: No Constitutional: Reports: malaise Objective Objective Last 24 Hour Vital Signs Date Time Temp Pulse Resp B/P (MAP) Pulse Ox O2 Delivery O2 Flow Rate FiO2 07/23/19 08:54 105 104/65 07/23/19 08:28 106 07/23/19 08:00 97.3 105 20 104/65 (78) 96 07/23/19 08:00 Nasal Cannula 2.0 07/23/19 06:00 109/56 07/23/19 05:47 109/56 07/23/19 04:00 Nasal Cannula 2.0 07/23/19 04:00 98.4 112 20 130/79 (96) 100 07/23/19 04:00 122 07/23/19 00:00 Nasal Cannula 2.0 07/23/19 00:00 111 07/23/19 00:00 98.0 112 20 126/74 (91) 100 07/23/19 00:00 126/74 07/22/19 21:00 112 92/45 07/22/19 20:00 98.1 112 23 92/45 (61) 100 07/22/19 20:00 Nasal Cannula 2.0 07/22/19 20:00 115 07/22/19 18:00 94/60 07/22/19 17:08 113 07/22/19 16:00 Nasal Cannula 2.0 07/22/19 16:00 98.2 114 23 94/60 (71) 100 07/22/19 12:00 99/61 07/22/19 12:00 98.5 109 24 99/61 (74) 100 07/22/19 12:00 Nasal Cannula 2.0 Intake and Output 07/22/19 07/23/19 19:00 07:00 Intake Total 2000 ml Output Total 50 ml Balance 1950 ml Hemodialysis 2000 ml Gastric Drainage Total 50 ml Laboratory Tests 07/23/19 03:45: White Blood Count 10.8, Red Blood Count 3.36L, Hemoglobin 11.5L, Hematocrit 35.0L, Mean Corpuscular Volume 104H, Mean Corpuscular Hemoglobin 34.3H, Mean Corpuscular Hemoglobin Concent 33.0, Red Cell Distribution Width 13.6, Platelet Count 96L, Mean Platelet Volume 10.2H, Neutrophils (%) (Auto) , Lymphocytes (%) (Auto) , Monocytes (%) (Auto) , Eosinophils (%) (Auto) , Basophils (%) (Auto) , Differential Total Cells Counted 100, Neutrophils % (Manual) 78H, Lymphocytes % (Manual) 13L, Monocytes % (Manual) 6, Eosinophils % (Manual) 3, Basophils % ( Manual) 0, Band Neutrophils 0, Platelet Estimate DecreasedL, Platelet Morphology Normal, Hypochromasia 1+, Macrocytosis 1+, Sodium Level 143, Potassium Level 4.7, Chloride Level 99, Carbon Dioxide Level 32, Anion Gap 12, Blood Urea Nitrogen 56H, Creatinine 9.9H, Estimat Glomerular Filtration Rate 6.8 , Glucose Level 87, Uric Acid 5.0, Calcium Level 8.8, Phosphorus Level 8.1H, Magnesium Level 2.2, Total Bilirubin 0.7, Aspartate Amino Transf (AST/SGOT) 17, Alanine Aminotransferase (ALT/SGPT) 8L, Alkaline Phosphatase 107, Troponin I 0.039, C-Reactive Protein, Quantitative 3.7H, Pro-B-Type Natriuretic Peptide 61408K, Total Protein 8.0, Albumin 2.9L, Globulin 5.1, Albumin/Globulin Ratio 0.6L Height (Feet): 5 Height (Inches): 5.50 Weight (Pounds): 156 General Appearance: no apparent distress EENT: other - NGT Cardiovascular: tachycardia Respiratory/Chest: decreased breath sounds Objective no change Daniel Delgadillo MD Jul 23, 2019 11:53
[2019-07-23 12:00] VITALS: BP 133/65
[2019-07-23] MEDS: Renvela 800mg Pkt NG SCH ×2 (12:04→17:12)
--- NOTE | 2019-07-23 12:35 | NUR ---
ST NOTES: SWALLOW RE-EVALUATION SINCE DR POOLE SAID THE PATIENT IS MORE ALERT. MET WITH PATIENT WHO IS STILL CONFUSED, SLOW AND INCONSISTENT IN FOLLOWING COMMANDS AND ANSWERING QUESTIONS. DID NOT UNDERSTAND TONGUE STRENGTHENING TEST BUT HAS GROSSLY FUNCTIONAL (BUT SLOWER) OROMOTOR SKILLS. GIVEN TRIALS OF NECTAR THICK LIQUIDS VIA STRAW, SLOWER SWALLOWING WITH FAIR HYOLARYNGEAL EXCURSION, NO OVERT ASPIRATION. GIVEN PUREED, HE CHEWED AND IT TOOK 5 SECONDS TO SWALLOW AND HE SWALLOWED AGAIN TO CLEAR (ORAL OR PHARYNGEAL OR BOTH RESIDUE) IN 4-5 SECONDS, BUT NO OVERT ASPIRATION. GIVEN CVA AND NEURO DIAGNOSES, HAS SILENT ASPIRATION RISK SO WILL HOLD ON PO TRIALS OF THIN LIQUIDS FOR NOW. GIVEN VERY SLOW WITH PUREED, WILL HOLD OFF ON MASTICATED SOLIDS AND UPGRADE TOLERATED IF INTAKE IS TIMELY AND GOOD. PER RD SEND RENAL DIET TYPE AND NEPRO TID. EDUCATED/TRAINED STAFF IN POSTED ASPIRATION PRECAUTIONS. D/W JOCE VIVEROS AND DR POOLE. WILL HOLD ON NGT FEEDINGS FOR NOW (MAY WANT TO SUPPLEMENT IF INTAKE POOR) HE NEEDS TO BE FED SINCE HE IS ON RESTRAINTS SINCE HE PULLS OUT LINES AND KEEPS TRYING TO GET OUT OF BED. Addendum: 07/23/19 at 1238 by HOLLIE WILLETT JACQUARD LOOM [employer]EDDLES TIER COMPLETE MODIFIED BARIUM SWALLOW STUDY WHEN READY TO R/O SILENT ASPIRATION.
--- NOTE | 2019-07-23 13:44 | Infectious Diseases Prog Note ---
Assessment/Plan Assessment/Plan Assessment: Probable aspiration PNA -07/20 CXR: Mild pulmonary vascular congestion suspected. Bilateral pleural effusions. -07/17 CXR: Bilateral pleural effusion and mild interstitial congestion and hazy parenchymal opacity present. cardiac arrest asystole during surgical procedure -07/16 CXR: pulmonary edema Non healing scrotal wound; bx showed: ruptured epidermal inclusion cyst with associated abscess formation -07/16 sp attempted excision but procedure aborted due to cardiac arrest VDRF 07/16; extubated 07/18 Afebrile Mild leukocytosis, SP ESRD on HD via L arm AVF Dm2 HTN internal hemorrhoids Plan: -Cont PO Levaquin #7/ to cover for probable aspiration PNA and post surgical excision testicular absces -07/16 SP Ancef x1 -f/u cx -Monitor CBC/CMP, temperatures -aspiration precautions -wound care per surgical team -Sx, Neprho, pulm f/u Thank you for this consultation. Will continue to follow along with you. Discussed with RN Subjective Allergies: Coded Allergies: LISINOPRIL (Verified Allergy, Severe, Shortness of Breath, 07/02/19) THROAT SWELLS UP PENICILLINS (Verified Allergy, Severe, throat swelling, 07/17/19) tolerated Ancef x1 07/16/19 Uncoded Allergies: shellfish (Allergy, Severe, 02/06/19) shortness of breath, vomiting, throat swelling Subjective afebrile no leukocytosis at 2l NC Objective Vital Signs Last 24 Hour Vital Signs Date Time Temp Pulse Resp B/P (MAP) Pulse Ox O2 Delivery O2 Flow Rate FiO2 07/23/19 12:04 106 07/23/19 12:00 97.5 107 20 133/65 (87) 96 07/23/19 12:00 Nasal Cannula 2.0 07/23/19 11:43 107 07/23/19 08:54 105 104/65 07/23/19 08:28 106 07/23/19 08:00 97.3 105 20 104/65 (78) 96 07/23/19 08:00 Nasal Cannula 2.0 07/23/19 06:00 109/56 07/23/19 05:47 109/56 07/23/19 04:00 Nasal Cannula 2.0 07/23/19 04:00 98.4 112 20 130/79 (96) 100 07/23/19 04:00 122 07/23/19 00:00 Nasal Cannula 2.0 07/23/19 00:00 111 07/23/19 00:00 98.0 112 20 126/74 (91) 100 07/23/19 00:00 126/74 07/22/19 21:00 112 92/45 07/22/19 20:00 98.1 112 23 92/45 (61) 100 07/22/19 20:00 Nasal Cannula 2.0 07/22/19 20:00 115 07/22/19 18:00 94/60 07/22/19 17:08 113 07/22/19 16:00 Nasal Cannula 2.0 07/22/19 16:00 98.2 114 23 94/60 (71) 100 Height (Feet): 5 Height (Inches): 5.50 Weight (Pounds): 156 Objective General Appearance: no apparent distress Head: normocephalic EENT: ETT in place Neck: supple Respiratory: normal breath sounds, no respiratory distress, other - intubated Cardiovascular: normal rate Gastrointestinal: normal inspection, non tender, soft, normal bowel sounds, non -distended Neurologic: oriented x3, normal inspection Skin: normal inspection, normal color, no rash, warm/dry, palpation normal, well hydrated scrotal wound packed Laboratory Tests Test 07/23/19 03:45 White Blood Count 10.8 K/UL (4.8-10.8) Red Blood Count 3.36 M/UL (4.70-6.10) L Hemoglobin 11.5 G/DL (14.2-18.0) L Hematocrit 35.0 % (42.0-52.0) L Mean Corpuscular Volume 104 FL (80-99) H Mean Corpuscular Hemoglobin 34.3 PG (27.0-31.0) H Mean Corpuscular Hemoglobin Concent 33.0 G/DL (32.0-36.0) Red Cell Distribution Width 13.6 % (11.6-14.8) Platelet Count 96 K/UL (150-450) L Mean Platelet Volume 10.2 FL (6.5-10.1) H Neutrophils (%) (Auto) % (45.0-75.0) Lymphocytes (%) (Auto) % (20.0-45.0) Monocytes (%) (Auto) % (1.0-10.0) Eosinophils (%) (Auto) % (0.0-3.0) Basophils (%) (Auto) % (0.0-2.0) Differential Total Cells Counted 100 Neutrophils % (Manual) 78 % (45-75) H Lymphocytes % (Manual) 13 % (20-45) L Monocytes % (Manual) 6 % (1-10) Eosinophils % (Manual) 3 % (0-3) Basophils % (Manual) 0 % (0-2) Band Neutrophils 0 % (0-8) Platelet Estimate Decreased L Platelet Morphology Normal Hypochromasia 1+ Macrocytosis 1+ Sodium Level 143 MMOL/L (136-145) Potassium Level 4.7 MMOL/L (3.5-5.1) Chloride Level 99 MMOL/L (98-107) Carbon Dioxide Level 32 MMOL/L (21-32) Anion Gap 12 mmol/L (5-15) Blood Urea Nitrogen 56 mg/dL (7-18) H Creatinine 9.9 MG/DL (0.55-1.30) H Estimat Glomerular Filtration Rate 6.8 mL/min (>60) Glucose Level 87 MG/DL (74-106) Uric Acid 5.0 MG/DL (2.6-7.2) Calcium Level 8.8 MG/DL (8.5-10.1) Phosphorus Level 8.1 MG/DL (2.5-4.9) H Magnesium Level 2.2 MG/DL (1.8-2.4) Total Bilirubin 0.7 MG/DL (0.2-1.0) Aspartate Amino Transf (AST/SGOT) 17 U/L (15-37) Alanine Aminotransferase (ALT/SGPT) 8 U/L (12-78) L Alkaline Phosphatase 107 U/L (46-116) Troponin I 0.039 ng/mL (0.000-0.056) C-Reactive Protein, Quantitative 3.7 mg/dL (0.00-0.90) H Pro-B-Type Natriuretic Peptide 39031 pg/mL (0-125) H Total Protein 8.0 G/DL (6.4-8.2) Albumin 2.9 G/DL (3.4-5.0) L Globulin 5.1 g/dL Albumin/Globulin Ratio 0.6 (1.0-2.7) L Current Medications Medications (Trade) Dose Ordered Sig/David Route PRN Reason Start Time Stop Time Status Last Admin Dose Admin Acetaminophen (Tylenol) 650 mg Q4H PRN ORAL Fever 07/20/19 02:00 08/15/19 13:59 Acetaminophen (Tylenol) 650 mg Q4H PRN RECTAL FEVER 07/20/19 01:45 08/15/19 13:44 Bacitracin (Bacitracin 15gm tube) 1 applic THREE TIMES A DAY TOPIC 07/22/19 09:00 08/21/19 08:59 07/23/19 12:04 Carvedilol (Coreg) 25 mg EVERY 12 HOURS NG 07/20/19 21:00 08/17/19 09:59 07/21/19 21:00 Dextrose (Dextrose 50%) 25 ml Q30M PRN IV Hypoglycemia 07/20/19 01:30 08/15/19 13:59 Dextrose (Dextrose 50%) 50 ml Q30M PRN IV Hypoglycemia 07/20/19 01:30 08/15/19 13:59 Heparin Sodium (Porcine) (Heparin 5000 units/ml) 5,000 units EVERY 8 HOURS SUBQ 07/20/19 06:00 08/15/19 13:59 Hydralazine HCl (Apresoline) 10 mg Q4H PRN IV bp over 160 syst 07/22/19 12:00 08/15/19 11:59 Hydralazine HCl (Apresoline) 10 mg Q8HR NG 07/23/19 14:00 08/18/19 18:29 Levofloxacin 100 ml @ 100 mls/hr Q48H IVPB 07/21/19 15:00 07/24/19 14:59 07/21/19 15:09 Lorazepam (Ativan 2mg/ml 1ml) 2 mg Q2H PRN IV agitation 07/20/19 02:00 07/23/19 13:59 Metoclopramide HCl (Reglan) 5 mg EVERY 6 HOURS NG 07/22/19 12:00 08/21/19 11:59 07/23/19 12:00 Metoclopramide HCl (Reglan) 10 mg Q8H PRN IVP Nausea & Vomiting 07/21/19 12:45 08/20/19 12:44 07/23/19 04:10 Morphine Sulfate (Morphine Sulfate) 4 mg Q4H PRN IVP Severe Pain (Pain Scale 7-10) 07/20/19 02:00 07/23/19 13:59 Nitroglycerin (Ntg) 1 patch Q24H TDERMAL 07/20/19 06:00 08/19/19 05:59 07/23/19 05:47 Pantoprazole (Protonix) 40 mg EVERY 12 HOURS IVP 07/21/19 21:00 08/20/19 20:59 07/23/19 08:04 Sennosides (Senokot) 8.6 mg BIDPRN PRN ORAL Constipation 07/20/19 13:45 08/15/19 13:44 Sevelamer Carbonate (Renvela) 800 mg THREE TIMES A DAY NG 07/23/19 13:00 08/22/19 12:59 07/23/19 12:04 Lee Ann Hyatt M.D. Jul 23, 2019 13:44
[2019-07-23] MEDS ORDERED: NS 500ML ONE (14:57)
--- NOTE | 2019-07-23 15:33 | NUR ---
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 97.5 HR 107 RR 20 B/P 135/70 2L NC O2 SAT @ 98% BUN 56 CR 9.9 IS: LEVAQUIN IV HEPARIN SUBC COREG RENAL DIET STEP DOWN STATUS
[2019-07-23 16:00] VITALS: BP 118/71
--- NOTE | 2019-07-23 16:00 | NUR ---
NURSE NOTES: Cleared for oral feeding per speech therapist Amira and Dr Galloway. Patient was fed by PROJECT SYSTEMS ENGINEER, ate 30% of meal. Speech therapist notified, will continue to feed through NGT at this time until patient tolerated at least 75% of meals. Placed on 72 hour calorie count. Will continue to monitor.
--- NOTE | 2019-07-23 19:03 | Internal Med Progress Note ---
Subjective Date of Service: Jul 23, 2019 Physician Name Michael Perez Attending Physician Zuhair Singleton MD Current Medications Medications (Trade) Dose Ordered Sig/David Route PRN Reason Start Time Stop Time Status Last Admin Dose Admin Acetaminophen (Tylenol) 650 mg Q4H PRN ORAL Fever 07/20/19 02:00 08/15/19 13:59 Acetaminophen (Tylenol) 650 mg Q4H PRN RECTAL FEVER 07/20/19 01:45 08/15/19 13:44 Bacitracin (Bacitracin 15gm tube) 1 applic THREE TIMES A DAY TOPIC 07/22/19 09:00 08/21/19 08:59 07/23/19 17:12 Carvedilol (Coreg) 25 mg EVERY 12 HOURS NG 07/20/19 21:00 08/17/19 09:59 07/21/19 21:00 Dextrose (Dextrose 50%) 25 ml Q30M PRN IV Hypoglycemia 07/20/19 01:30 08/15/19 13:59 Dextrose (Dextrose 50%) 50 ml Q30M PRN IV Hypoglycemia 07/20/19 01:30 08/15/19 13:59 Heparin Sodium (Porcine) (Heparin 5000 units/ml) 5,000 units EVERY 8 HOURS SUBQ 07/20/19 06:00 08/15/19 13:59 Hydralazine HCl (Apresoline) 10 mg Q4H PRN IV bp over 160 syst 07/22/19 12:00 08/15/19 11:59 Hydralazine HCl (Apresoline) 10 mg Q8HR NG 07/23/19 14:00 08/18/19 18:29 07/23/19 14:30 Levofloxacin 100 ml @ 100 mls/hr Q48H IVPB 07/21/19 15:00 07/24/19 14:59 07/23/19 15:05 Metoclopramide HCl (Reglan) 5 mg EVERY 6 HOURS NG 07/22/19 12:00 08/21/19 11:59 07/23/19 17:12 Metoclopramide HCl (Reglan) 10 mg Q8H PRN IVP Nausea & Vomiting 07/21/19 12:45 08/20/19 12:44 07/23/19 04:10 Nitroglycerin (Ntg) 1 patch Q24H TDERMAL 07/20/19 06:00 08/19/19 05:59 07/23/19 05:47 Pantoprazole (Protonix) 40 mg EVERY 12 HOURS IVP 07/21/19 21:00 08/20/19 20:59 07/23/19 08:04 Sennosides (Senokot) 8.6 mg BIDPRN PRN ORAL Constipation 07/20/19 13:45 08/15/19 13:44 Sevelamer Carbonate (Renvela) 800 mg THREE TIMES A DAY NG 07/23/19 13:00 08/22/19 12:59 07/23/19 17:12 Allergies: Coded Allergies: LISINOPRIL (Verified Allergy, Severe, Shortness of Breath, 07/02/19) THROAT SWELLS UP PENICILLINS (Verified Allergy, Severe, throat swelling, 07/17/19) tolerated Ancef x1 07/16/19 Uncoded Allergies: shellfish (Allergy, Severe, 02/06/19) shortness of breath, vomiting, throat swelling ROS Limited/Unobtainable: Yes Subjective 49 YO M admitted for scrotal fistulotomy. S/P cardiac arrest. Self extubated . Cover for Int med-Dr Singleton. PATRICK. Continues confused Objective Last Vital Signs Date Time Temp Pulse Resp B/P (MAP) Pulse Ox O2 Delivery O2 Flow Rate FiO2 07/23/19 16:00 97.5 101 20 118/71 (87) 98 07/23/19 16:00 Nasal Cannula 2.0 07/21/19 19:27 21 Laboratory Tests Test 07/23/19 03:45 White Blood Count 10.8 K/UL (4.8-10.8) Red Blood Count 3.36 M/UL (4.70-6.10) L Hemoglobin 11.5 G/DL (14.2-18.0) L Hematocrit 35.0 % (42.0-52.0) L Mean Corpuscular Volume 104 FL (80-99) H Mean Corpuscular Hemoglobin 34.3 PG (27.0-31.0) H Mean Corpuscular Hemoglobin Concent 33.0 G/DL (32.0-36.0) Red Cell Distribution Width 13.6 % (11.6-14.8) Platelet Count 96 K/UL (150-450) L Mean Platelet Volume 10.2 FL (6.5-10.1) H Neutrophils (%) (Auto) % (45.0-75.0) Lymphocytes (%) (Auto) % (20.0-45.0) Monocytes (%) (Auto) % (1.0-10.0) Eosinophils (%) (Auto) % (0.0-3.0) Basophils (%) (Auto) % (0.0-2.0) Differential Total Cells Counted 100 Neutrophils % (Manual) 78 % (45-75) H Lymphocytes % (Manual) 13 % (20-45) L Monocytes % (Manual) 6 % (1-10) Eosinophils % (Manual) 3 % (0-3) Basophils % (Manual) 0 % (0-2) Band Neutrophils 0 % (0-8) Platelet Estimate Decreased L Platelet Morphology Normal Hypochromasia 1+ Macrocytosis 1+ Sodium Level 143 MMOL/L (136-145) Potassium Level 4.7 MMOL/L (3.5-5.1) Chloride Level 99 MMOL/L (98-107) Carbon Dioxide Level 32 MMOL/L (21-32) Anion Gap 12 mmol/L (5-15) Blood Urea Nitrogen 56 mg/dL (7-18) H Creatinine 9.9 MG/DL (0.55-1.30) H Estimat Glomerular Filtration Rate 6.8 mL/min (>60) Glucose Level 87 MG/DL (74-106) Uric Acid 5.0 MG/DL (2.6-7.2) Calcium Level 8.8 MG/DL (8.5-10.1) Phosphorus Level 8.1 MG/DL (2.5-4.9) H Magnesium Level 2.2 MG/DL (1.8-2.4) Total Bilirubin 0.7 MG/DL (0.2-1.0) Aspartate Amino Transf (AST/SGOT) 17 U/L (15-37) Alanine Aminotransferase (ALT/SGPT) 8 U/L (12-78) L Alkaline Phosphatase 107 U/L (46-116) Troponin I 0.039 ng/mL (0.000-0.056) C-Reactive Protein, Quantitative 3.7 mg/dL (0.00-0.90) H Pro-B-Type Natriuretic Peptide 82034 pg/mL (0-125) H Total Protein 8.0 G/DL (6.4-8.2) Albumin 2.9 G/DL (3.4-5.0) L Globulin 5.1 g/dL Albumin/Globulin Ratio 0.6 (1.0-2.7) L Intake and Output 07/22/19 07/23/19 19:00 07:00 Intake Total 2000 ml Output Total 50 ml Balance 1950 ml Hemodialysis 2000 ml Gastric Drainage Total 50 ml Objective PHYSICAL EXAMINATION: GENERAL: The patient is well-developed well-nourished male, intubated and sedated in the intensive care unit. CHEST: nasal canula; Diffuse coarse breath sounds bilaterally without wheezes CARDIOVASCULAR: Regular rhythm and rate. S1, S2 are normal without murmurs, rubs, or gallops. ABDOMEN: Soft, nontender, nondistended. Positive bowel sounds. No evidence of hepatosplenomegaly. Currently, no rebound or guarding noted. EXTREMITIES: Negative for clubbing, cyanosis, edema. NEUROLOGIC: Unable to assess. Assessment/Plan Assessment/Plan ASSESSMENT: This is a 49-year-old male. 1. Scrotal fistula. 2. Status post cardiac arrest. 3. Renal failure. 4. Hypertension. 5. Gout. 6. End stage renal disease on hemodialysis. 7. Cardiomyopathy 8. Systolic CHF 9. dysphagia TREATMENT: 1. Scrotal fistula. Surgery was aborted on 07/16/2019. Follow recommendations of Surgery, Dr. Galloway. 2. Status post cardiac arrest. The patient is S/P self-extubation 07/18/19. A Cardiology consultation has been obtained with Dr. Emmanuel Cortés. Follow recommendations of Cardiology. 3. End stage renal disease. A Nephrology consultation has been obtained with Dr. Daniel Delgadillo. Hemodialysis 07/22/19. Follow recommendations of Nephrology. 4. Hypertension. 5. Gout. 6. PATRICK status 7. Failed swallow eval-continue NG feeding per GI=Michael Crowder MD Jul 23, 2019 19:03
--- NOTE | 2019-07-23 19:09 | NUR ---
HAND-OFF: Report given to JOCE Salazar. Patient in stable condition..
--- NOTE | 2019-07-23 19:30 | NUR ---
NURSE NOTES: Received report from JOCE Benton. Pt is resting on the bed and awake and confused and slight agitated. Able to response to verbal stimuli. On tele monitor ST. IV site intact an no sign of infiltration noted. On NGT feeding with Nepro @ 10cc/hr and no residual noted. Lt upper arm AV shunt site intact and present of bruit and thrills. Pt scheduled HD tomorrow and called to HD by previous nursed. On O2 2L via nasal cannula and SaO2 98% noted. Pt has Bilateral soft restraint. checked comfort and circulation. Trying to release restraint when during care but he still trying to touch NGT. Dressing is clean and dry on Lt. scrotum wound area. Placed fall precaution. Will continue to care plan.
[2019-07-23 20:00] VITALS: BP 129/71
--- NOTE | 2019-07-23 20:55 | Cardiology Progress Note ---
Assessment/Plan Assessment/Plan 1. Status cardiac arrest, asystolic in origin. 2. Reported history of dilated cardiomyopathy that had improved in October 2018. 3. Hypertension, poorly controlled. 4. Hyperlipidemia. 5. End-stage renal disease, on hemodialysis. 6. History of systolic heart failure previously. 7. Lisinopril and penicillin allergy. 8. Diabetes mellitus. 9. Secondary hyperparathyroidism. 10. History of asthma. 11. Anemia, secondary to end-stage renal disease. 12. post arrest evidence for cardiomyopathy minro trop abn with out a peak or lorri to suggest acs an in della settign of renal failure is not specific tele personally reviewed labs noted bp increased cannot take acei due to allergy s/p dialysis overall better keep supportive care will need to repeat echo to see if any recovery to suggest stress induced although wall motion not typical of takatsubos dvt ppx heparin rn reported on initial admission to icu pt with food vomit post arrest , aspiration may be a possibility ? trop now normal isordil and hydralazine for cm cxr shows effusion will need more uf if bp allows may consider cath ? in futueri Subjective Cardiovascular: Denies: chest pain Respiratory: Denies: shortness of breath Gastrointestinal/Abdominal: Denies: abdominal pain Genitourinary: Denies: burning Objective Last 24 Hour Vital Signs Date Time Temp Pulse Resp B/P (MAP) Pulse Ox O2 Delivery O2 Flow Rate FiO2 07/23/19 20:43 98 129/71 07/23/19 16:00 97.5 101 20 118/71 (87) 98 07/23/19 16:00 Nasal Cannula 2.0 07/23/19 15:22 104 07/23/19 14:30 133/65 07/23/19 12:04 106 07/23/19 12:00 97.5 107 20 133/65 (87) 96 07/23/19 12:00 Nasal Cannula 2.0 07/23/19 11:43 107 07/23/19 08:54 105 104/65 07/23/19 08:28 106 07/23/19 08:00 97.3 105 20 104/65 (78) 96 07/23/19 08:00 Nasal Cannula 2.0 07/23/19 06:00 109/56 07/23/19 05:47 109/56 07/23/19 04:00 Nasal Cannula 2.0 07/23/19 04:00 98.4 112 20 130/79 (96) 100 07/23/19 04:00 122 07/23/19 00:00 Nasal Cannula 2.0 07/23/19 00:00 111 07/23/19 00:00 98.0 112 20 126/74 (91) 100 07/23/19 00:00 126/74 07/22/19 21:00 112 92/45 General Appearance: no apparent distress, alert Neck: supple Cardiovascular: normal rate Respiratory/Chest: lungs clear - ant Abdomen: normal bowel sounds, non tender, soft Extremities: no swelling Intake and Output 07/22/19 07/23/19 19:00 07:00 Intake Total 2000 ml Output Total 50 ml Balance 1950 ml Hemodialysis 2000 ml Gastric Drainage Total 50 ml Laboratory Tests Test 07/23/19 03:45 White Blood Count 10.8 K/UL (4.8-10.8) Red Blood Count 3.36 M/UL (4.70-6.10) L Hemoglobin 11.5 G/DL (14.2-18.0) L Hematocrit 35.0 % (42.0-52.0) L Mean Corpuscular Volume 104 FL (80-99) H Mean Corpuscular Hemoglobin 34.3 PG (27.0-31.0) H Mean Corpuscular Hemoglobin Concent 33.0 G/DL (32.0-36.0) Red Cell Distribution Width 13.6 % (11.6-14.8) Platelet Count 96 K/UL (150-450) L Mean Platelet Volume 10.2 FL (6.5-10.1) H Neutrophils (%) (Auto) % (45.0-75.0) Lymphocytes (%) (Auto) % (20.0-45.0) Monocytes (%) (Auto) % (1.0-10.0) Eosinophils (%) (Auto) % (0.0-3.0) Basophils (%) (Auto) % (0.0-2.0) Differential Total Cells Counted 100 Neutrophils % (Manual) 78 % (45-75) H Lymphocytes % (Manual) 13 % (20-45) L Monocytes % (Manual) 6 % (1-10) Eosinophils % (Manual) 3 % (0-3) Basophils % (Manual) 0 % (0-2) Band Neutrophils 0 % (0-8) Platelet Estimate Decreased L Platelet Morphology Normal Hypochromasia 1+ Macrocytosis 1+ Sodium Level 143 MMOL/L (136-145) Potassium Level 4.7 MMOL/L (3.5-5.1) Chloride Level 99 MMOL/L (98-107) Carbon Dioxide Level 32 MMOL/L (21-32) Anion Gap 12 mmol/L (5-15) Blood Urea Nitrogen 56 mg/dL (7-18) H Creatinine 9.9 MG/DL (0.55-1.30) H Estimat Glomerular Filtration Rate 6.8 mL/min (>60) Glucose Level 87 MG/DL (74-106) Uric Acid 5.0 MG/DL (2.6-7.2) Calcium Level 8.8 MG/DL (8.5-10.1) Phosphorus Level 8.1 MG/DL (2.5-4.9) H Magnesium Level 2.2 MG/DL (1.8-2.4) Total Bilirubin 0.7 MG/DL (0.2-1.0) Aspartate Amino Transf (AST/SGOT) 17 U/L (15-37) Alanine Aminotransferase (ALT/SGPT) 8 U/L (12-78) L Alkaline Phosphatase 107 U/L (46-116) Troponin I 0.039 ng/mL (0.000-0.056) C-Reactive Protein, Quantitative 3.7 mg/dL (0.00-0.90) H Pro-B-Type Natriuretic Peptide 38595 pg/mL (0-125) H Total Protein 8.0 G/DL (6.4-8.2) Albumin 2.9 G/DL (3.4-5.0) L Globulin 5.1 g/dL Albumin/Globulin Ratio 0.6 (1.0-2.7) L Emmanuel Cortés MD Jul 23, 2019 20:55
--- NOTE | 2019-07-23 22:00 | NUR ---
NURSE NOTES: Pt is resting on the bed and awake and forgetful. Pt is calm and cooperative at this time. Trying to release restraint when during care Pt didn't touched NGT at this time. D/c'd restraint. Will continue to monitor any change of condition.
[2019-07-24] VITALS (7 sets, daily range): BP systolic 105–159; BP diastolic 56–84
[2019-07-24] MEDS: Metoclopramide 10mg/10ml Liq NG SCH (05:35)
[2019-07-24] MEDS: Nitroglycerin Patch 0.4mg TDERMAL SCH (05:35)
[2019-07-24] MEDS: HydrALAZINE 10mg Tab NG SCH ×2 (05:36→06:00)
[2019-07-24] MEDS: Heparin 5000 units/ml inj SUBQ SCH ×3 (06:00→22:00)
--- NOTE | 2019-07-24 06:04 | NUR ---
NURSE NOTES: Pt is resting on the bed and awake confused, agitated and non-compliance. Pt trying to remove NGT and IV line and removed surgical dressing. Given verbal cueing but didn't understand. Denied pain at this time. MD aware and applied Bilateral soft restraint. Checked comfort and circulation. Will continue to monitor any change of condition. Noted small amount of loose BM. Cleaned Pt and applied lotion and cream. Changed Lt. scrotum surgical wound dressing. Noted NGT residual 10cc.No sign of nausea vomiting. Resumed NGT feeding with nepro @ 10cc/hr. Continue to monitor any change of condition.
--- NOTE | 2019-07-24 07:05 | NUR ---
NURSE NOTES: Received report from Alicja Pappas RN. Patient alert and restless, confused. ST 100s on water plumber. Receiving O2 via nasal cannula @ 3L/min, respirations even and unlabored. Right NGT running Nepro @ 10 cc/hr, no residuals noted. Left upper arm shunt noted with bruit and thrill. Right forearm 20g saline lock patent and asymptomatic. Bilateral soft wrist restraints noted, patient attempting to pull on NGT, unable to understand removal criteria at this time. Skin intact, peripheral pulses present, no edema noted. Bed locked in lowest position with side rails up x 3. All needs attended to. Call light within reach. Will continue to monitor.
--- NOTE | 2019-07-24 07:20 | NUR ---
HAND-OFF: Report given to JOCE Mckenzie. Pt is resting on the bed and no sign of acute distress noted. .
--- NOTE | 2019-07-24 08:45 | NUR ---
NURSE NOTES: Patient seen by Dr. Delarosa at bedside. per Dr. Delarosa, NGT may be removed d/t patient eating per [place]rem. Patient is also restless and keeps sliding himself on the bed. NGT removed as ordered. Will continue to monitor and encourage patient to eat.
--- NOTE | 2019-07-24 08:58 | General Progress Note ---
Assessment/Plan Status: unchanged Assessment/Plan: Assessment/Plan Problems: (1) Scrotal lesion ICD Codes: N50.9 - Disorder of male genital organs, unspecified SNOMED: 44573083 (2) Cardiac arrest ICD Codes: I46.9 - Cardiac arrest, cause unspecified SNOMED: 185157137 (3) Anemia ICD Codes: D64.9 - Anemia, unspecified SNOMED: 737288823 (4) Constipation ICD Codes: K59.00 - Constipation, unspecified (5) N/V, TF intolerance Assessment/Plan follow up cardiology recs Anemia work-up Occult blood stool to rule out any GI bleed prn transfusions ppi IVF per renal pulled out NGT d/w speech, will add nephro cans calorie count NGT if needed again Subjective ROS Limited/Unobtainable: No Allergies: Coded Allergies: LISINOPRIL (Verified Allergy, Severe, Shortness of Breath, 07/02/19) THROAT SWELLS UP PENICILLINS (Verified Allergy, Severe, throat swelling, 07/17/19) tolerated Ancef x1 07/16/19 Uncoded Allergies: shellfish (Allergy, Severe, 02/06/19) shortness of breath, vomiting, throat swelling Objective Last 24 Hour Vital Signs Date Time Temp Pulse Resp B/P (MAP) Pulse Ox O2 Delivery O2 Flow Rate FiO2 07/24/19 06:00 130/70 07/24/19 05:35 131/76 07/24/19 04:00 Nasal Cannula 2.0 07/24/19 04:00 98.3 101 20 132/70 (90) 98 07/24/19 04:00 106 07/24/19 00:00 92 07/24/19 00:00 Nasal Cannula 2.0 07/24/19 00:00 98.4 89 20 121/72 (88) 98 07/23/19 22:00 107/66 07/23/19 20:43 98 129/71 07/23/19 20:00 Nasal Cannula 2.0 07/23/19 20:00 98.8 98 20 129/71 (90) 98 07/23/19 20:00 99 07/23/19 16:00 97.5 101 20 118/71 (87) 98 07/23/19 16:00 Nasal Cannula 2.0 07/23/19 15:22 104 07/23/19 14:30 133/65 07/23/19 12:04 106 07/23/19 12:00 97.5 107 20 133/65 (87) 96 07/23/19 12:00 Nasal Cannula 2.0 07/23/19 11:43 107 Intake and Output 07/23/19 07/24/19 19:00 07:00 Intake Total 120 ml 120 ml Balance 120 ml 120 ml IV Total 100 ml Tube Feeding 20 ml 120 ml # Bowel Movements 8 Laboratory Tests 07/24/19 04:00: Stool Occult Blood [Pending] Height (Feet): 5 Height (Inches): 5.50 Weight (Pounds): 158 General Appearance: confused EENT: normal ENT inspection Neck: supple Cardiovascular: normal rate Respiratory/Chest: decreased breath sounds Abdomen: normal bowel sounds, non tender, soft Extremities: non-tender Richy Delarosa MD Jul 24, 2019 08:58
[2019-07-24] MEDS: Carvedilol 25mg Tab NG SCH (09:00)
[2019-07-24] MEDS: Bacitracin Oint 15gm Tube TOPIC SCH ×3 (09:01→18:07)
[2019-07-24] MEDS: Pantoprazole Inj IVP SCH ×2 (09:01→21:00)
[2019-07-24] MEDS: Renvela 800mg Pkt NG SCH (09:01)
[2019-07-24 09:12] LABS: HEMATOCRIT 33.6 % (42.0-52.0); HEMOGLOBIN 11.3 G/DL (14.2-18.0); MEAN CORPUSCULAR VOLUME 101 FL (80-99); PLATELET COUNT 87 K/UL (150-450); RED BLOOD COUNT 3.32 M/UL (4.70-6.10); RED CELL DISTRIBUTION WIDTH 13.1 % (11.6-14.8)
--- NOTE | 2019-07-24 09:26 | NUR ---
ST NOTES: SWALLOW STATUS: EDUCATED/TRAINED RN (ZAHIDA) AND OPERATIONS SPECIALIST (ASHLEIGH) IN POSTED ASPIRATION PRECAUTIONS. PATIENT NOT CONSISTENTLY ALERT NOW FOR PO TRIALS. PER RN, PATIENT PULLED OUT NGT AND INTAKE SLOW AND 35%. WILL TRY TO INCREASE INTAKE 75% OF MEAL 3 TIMES A DAY AND PUSH NEPRO HIGH CALORIE SUPPLEMENTS IN BETWEEN MEALS. SPOKE WITH OPERATIONS SPECIALIST, ASHLEIGH, WHO FED PATIENT AND SAID THAT HE WAS BLOWING BUBBLES WITH HIS MOUTH AND SPITTING OUT THE FOOD. SHE TRIED TO GET HIM TO FEED HIMSELF AND HE KEPT HIS MOUTH CLOSED. LIKELY NEEDS NGT REINSERTED A SUPPLEMENT (OR PRIMARY AT TIMES) MODE OF NUTRITION/HYDRATION HE WILL NOT CONSISTENTLY MEET NUTRITIONAL NEEDS AT THIS TIME. SPEECH, COGNITIVE-LANGUAGE STATUS: 8 DAYS S/P CARDIAC ARREST, THE PATIENT IS VARIABLY ALERT. SPEECH AND VOICE FLUCTUATES FROM SPEAKING IN A SOFT AND AUDIBLE VOICE TO JUST MOVING HIS LIPS. FOLLOWS SOME ORAL COMMANDS FOR MOVING HIS TONGUE IN ALL DIRECTIONS BUT DID NOT UNDERSTAND STRENGTH TESTING TO RESISTANCE. DOES NOT USUALLY INITIATE COMMUNICATION AND REMAINS CONFUSED. WILL FORMALLY EVALUATE TOMORROW. PLAN: CONSIDER REINSERTING NGT FOR NOW GIVEN POOR, SLOW, AND INCONSISTENT PO INTAKE. CONTINUE WITH CURRENT DIET OF RENAL MOIST PUREED AND NECTAR THICK LIQUIDS USING STRICT ASPIRATION PRECAUTIONS AND ONE TO ONE FEEDING. MONITOR FOR MODIFIED BARIUM SWALLOW STUDY READINESS TO FURTHER ASSESS SWALLOW, DETERMINE SILENT ASPIRATION RISK, AND ATTEMPT TRIAL TX EVALUATION OF COGNITIVE-COMMUNICATION D/W STAFF ABOVE INFORMATION.
[2019-07-24 09:38] LABS: ALANINE AMINOTRANSFERASE 10 U/L (12-78); ALBUMIN 2.8 G/DL (3.4-5.0); ALBUMIN/GLOBULIN RATIO 0.6 (1.0-2.7); ALKALINE PHOSPHATASE 105 U/L (46-116); ANION GAP 13 mmol/L (5-15); ASPARTATE AMINO TRANSFERASE 14 U/L (15-37); BILIRUBIN,TOTAL 0.6 MG/DL (0.2-1.0); BLOOD UREA NITROGEN 77 mg/dL (7-18); CALCIUM 8.8 MG/DL (8.5-10.1); CARBON DIOXIDE 33 MMOL/L (21-32); CHLORIDE 97 MMOL/L (98-107); CREATININE 12.3 MG/DL (0.55-1.30); POTASSIUM 4.3 MMOL/L (3.5-5.1); SODIUM 142 MMOL/L (136-145)
--- NOTE | 2019-07-24 10:04 | Pulmonology Progress Note ---
Assessment/Plan Problems: (1) Cardiac arrest (2) Acute respiratory failure (3) ESRD (end stage renal disease) (4) Diabetes mellitus (5) Cardiomyopathy (6) Hypertension Assessment/Plan NG tube is off, pt/ot evaluation HD by nephrology monitor BP titrate cardiac meds sliding scale diabetic diet meds reviewed Subjective ROS Limited/Unobtainable: Yes Interval Events: awake, looks comfortable, not communicating Allergies: Coded Allergies: LISINOPRIL (Verified Allergy, Severe, Shortness of Breath, 07/02/19) THROAT SWELLS UP PENICILLINS (Verified Allergy, Severe, throat swelling, 07/17/19) tolerated Ancef x1 07/16/19 Uncoded Allergies: shellfish (Allergy, Severe, 02/06/19) shortness of breath, vomiting, throat swelling Objective Last 24 Hour Vital Signs Date Time Temp Pulse Resp B/P (MAP) Pulse Ox O2 Delivery O2 Flow Rate FiO2 07/24/19 09:23 104 07/24/19 09:00 103 133/74 07/24/19 06:00 130/70 07/24/19 05:35 131/76 07/24/19 04:00 Nasal Cannula 2.0 07/24/19 04:00 98.3 101 20 132/70 (90) 98 07/24/19 04:00 106 07/24/19 00:00 92 07/24/19 00:00 Nasal Cannula 2.0 07/24/19 00:00 98.4 89 20 121/72 (88) 98 07/23/19 22:00 107/66 07/23/19 20:43 98 129/71 07/23/19 20:00 Nasal Cannula 2.0 07/23/19 20:00 98.8 98 20 129/71 (90) 98 07/23/19 20:00 99 07/23/19 16:00 97.5 101 20 118/71 (87) 98 07/23/19 16:00 Nasal Cannula 2.0 07/23/19 15:22 104 07/23/19 14:30 133/65 07/23/19 12:04 106 07/23/19 12:00 97.5 107 20 133/65 (87) 96 07/23/19 12:00 Nasal Cannula 2.0 07/23/19 11:43 107 Intake and Output 07/23/19 07/24/19 19:00 07:00 Intake Total 120 ml 120 ml Balance 120 ml 120 ml IV Total 100 ml Tube Feeding 20 ml 120 ml # Bowel Movements 8 General Appearance: WD/WN HEENT: normocephalic, atraumatic Respiratory/Chest: lungs clear, normal breath sounds Cardiovascular: normal peripheral pulses, normal rate Abdomen: normal bowel sounds, soft, non tender Genitourinary: normal external genitalia Extremities: no clubbing Neurologic/Psychiatric: no motor/sensory deficits Laboratory Tests 07/24/19 04:00: Stool Occult Blood [Pending] 07/24/19 08:50: White Blood Count 10.0, Red Blood Count 3.32L, Hemoglobin 11.3L, Hematocrit 33.6L, Mean Corpuscular Volume 101H, Mean Corpuscular Hemoglobin 34.0H, Mean Corpuscular Hemoglobin Concent 33.6, Red Cell Distribution Width 13.1, Platelet Count 87L, Mean Platelet Volume 9.5, Neutrophils (%) (Auto) , Lymphocytes (%) ( Auto) , Monocytes (%) (Auto) , Eosinophils (%) (Auto) , Basophils (%) (Auto) , Neutrophils % (Manual) [Pending], Lymphocytes % (Manual) [Pending], Platelet Estimate [Pending], Platelet Morphology [Pending], Sodium Level 142, Potassium Level 4.3, Chloride Level 97L, Carbon Dioxide Level 33H, Anion Gap 13, Blood Urea Nitrogen 77H, Creatinine 12.3H, Estimat Glomerular Filtration Rate 5.3, Glucose Level 133H, Uric Acid 6.7, Calcium Level 8.8, Phosphorus Level 9.0H, Total Bilirubin 0.6, Aspartate Amino Transf (AST/SGOT) 14L, Alanine Aminotransferase (ALT/SGPT) 10L, Alkaline Phosphatase 105, C-Reactive Protein, Quantitative 6.6H, Pro-B-Type Natriuretic Peptide 75462L, Total Protein 7.8, Albumin 2.8L, Globulin 5.0, Albumin/Globulin Ratio 0.6L, Digoxin Level 0.3L Current Medications Medications (Trade) Dose Ordered Sig/David Route PRN Reason Start Time Stop Time Status Last Admin Dose Admin Acetaminophen (Tylenol) 650 mg Q4H PRN ORAL Fever 07/20/19 02:00 08/15/19 13:59 Acetaminophen (Tylenol) 650 mg Q4H PRN RECTAL FEVER 07/20/19 01:45 08/15/19 13:44 Bacitracin (Bacitracin 15gm tube) 1 applic THREE TIMES A DAY TOPIC 07/22/19 09:00 08/21/19 08:59 07/24/19 09:01 Carvedilol (Coreg) 25 mg EVERY 12 HOURS NG 07/20/19 21:00 08/17/19 09:59 07/23/19 20:43 Dextrose (Dextrose 50%) 25 ml Q30M PRN IV Hypoglycemia 07/20/19 01:30 08/15/19 13:59 Dextrose (Dextrose 50%) 50 ml Q30M PRN IV Hypoglycemia 07/20/19 01:30 08/15/19 13:59 Heparin Sodium (Porcine) (Heparin 5000 units/ml) 5,000 units EVERY 8 HOURS SUBQ 07/20/19 06:00 08/15/19 13:59 Hydralazine HCl (Apresoline) 10 mg Q4H PRN IV bp over 160 syst 07/22/19 12:00 08/15/19 11:59 Hydralazine HCl (Apresoline) 10 mg Q8HR NG 07/23/19 14:00 08/18/19 18:29 07/23/19 14:30 Levofloxacin 100 ml @ 100 mls/hr Q48H IVPB 07/21/19 15:00 07/24/19 14:59 07/23/19 15:05 Metoclopramide HCl (Reglan) 5 mg EVERY 6 HOURS NG 07/22/19 12:00 08/21/19 11:59 07/24/19 05:35 Metoclopramide HCl (Reglan) 10 mg Q8H PRN IVP Nausea & Vomiting 07/21/19 12:45 08/20/19 12:44 07/23/19 04:10 Nitroglycerin (Ntg) 1 patch Q24H TDERMAL 07/20/19 06:00 08/19/19 05:59 07/24/19 05:35 Pantoprazole (Protonix) 40 mg EVERY 12 HOURS IVP 07/21/19 21:00 08/20/19 20:59 07/24/19 09:01 Sennosides (Senokot) 8.6 mg BIDPRN PRN ORAL Constipation 07/20/19 13:45 08/15/19 13:44 Sevelamer Carbonate (Renvela) 800 mg THREE TIMES A DAY NG 07/23/19 13:00 08/22/19 12:59 07/24/19 09:01 Juan Carlos Soto MD Jul 24, 2019 10:04
--- NOTE | 2019-07-24 11:09 | Infectious Diseases Prog Note ---
Assessment/Plan Assessment/Plan Assessment: Probable aspiration PNA, sp rx -07/20 CXR: Mild pulmonary vascular congestion suspected. Bilateral pleural effusions. -07/17 CXR: Bilateral pleural effusion and mild interstitial congestion and hazy parenchymal opacity present. cardiac arrest asystole during surgical procedure -07/16 CXR: pulmonary edema Non healing scrotal wound; bx showed: ruptured epidermal inclusion cyst with associated abscess formation -07/16 sp attempted excision but procedure aborted due to cardiac arrest VDRF 07/16; extubated 07/18 Afebrile Mild leukocytosis, SP ESRD on HD via L arm AVF Dm2 HTN internal hemorrhoids Plan: -Cont to monitor off abx -07/23 SP LEvaquin #7 -07/16 SP Ancef x1 -f/u cx -Monitor CBC/CMP, temperatures -aspiration precautions -wound care per surgical team -Sx, Neprho, pulm f/u Thank you for this consultation. Will continue to follow along with you. Discussed with RN Subjective Allergies: Coded Allergies: LISINOPRIL (Verified Allergy, Severe, Shortness of Breath, 07/02/19) THROAT SWELLS UP PENICILLINS (Verified Allergy, Severe, throat swelling, 07/17/19) tolerated Ancef x1 07/16/19 Uncoded Allergies: shellfish (Allergy, Severe, 02/06/19) shortness of breath, vomiting, throat swelling Subjective afebrile no leukocytosis at 2l NC Objective Vital Signs Last 24 Hour Vital Signs Date Time Temp Pulse Resp B/P (MAP) Pulse Ox O2 Delivery O2 Flow Rate FiO2 07/24/19 09:23 104 07/24/19 09:00 103 133/74 07/24/19 06:00 130/70 07/24/19 05:35 131/76 07/24/19 04:00 Nasal Cannula 2.0 07/24/19 04:00 98.3 101 20 132/70 (90) 98 07/24/19 04:00 106 07/24/19 00:00 92 07/24/19 00:00 Nasal Cannula 2.0 07/24/19 00:00 98.4 89 20 121/72 (88) 98 07/23/19 22:00 107/66 07/23/19 20:43 98 129/71 07/23/19 20:00 Nasal Cannula 2.0 07/23/19 20:00 98.8 98 20 129/71 (90) 98 07/23/19 20:00 99 07/23/19 16:00 97.5 101 20 118/71 (87) 98 07/23/19 16:00 Nasal Cannula 2.0 07/23/19 15:22 104 07/23/19 14:30 133/65 07/23/19 12:04 106 07/23/19 12:00 97.5 107 20 133/65 (87) 96 07/23/19 12:00 Nasal Cannula 2.0 07/23/19 11:43 107 Height (Feet): 5 Height (Inches): 5.50 Weight (Pounds): 158 Objective General Appearance: no apparent distress Head: normocephalic EENT: ETT in place Neck: supple Respiratory: normal breath sounds, no respiratory distress, other - intubated Cardiovascular: normal rate Gastrointestinal: normal inspection, non tender, soft, normal bowel sounds, non -distended Neurologic: oriented x3, normal inspection Skin: normal inspection, normal color, no rash, warm/dry, palpation normal, well hydrated scrotal wound packed Laboratory Tests Test 07/24/19 04:00 07/24/19 08:50 Stool Occult Blood Pending White Blood Count 10.0 K/UL (4.8-10.8) Red Blood Count 3.32 M/UL (4.70-6.10) L Hemoglobin 11.3 G/DL (14.2-18.0) L Hematocrit 33.6 % (42.0-52.0) L Mean Corpuscular Volume 101 FL (80-99) H Mean Corpuscular Hemoglobin 34.0 PG (27.0-31.0) H Mean Corpuscular Hemoglobin Concent 33.6 G/DL (32.0-36.0) Red Cell Distribution Width 13.1 % (11.6-14.8) Platelet Count 87 K/UL (150-450) L Mean Platelet Volume 9.5 FL (6.5-10.1) Neutrophils (%) (Auto) % (45.0-75.0) Lymphocytes (%) (Auto) % (20.0-45.0) Monocytes (%) (Auto) % (1.0-10.0) Eosinophils (%) (Auto) % (0.0-3.0) Basophils (%) (Auto) % (0.0-2.0) Neutrophils % (Manual) Pending Lymphocytes % (Manual) Pending Platelet Estimate Pending Platelet Morphology Pending Sodium Level 142 MMOL/L (136-145) Potassium Level 4.3 MMOL/L (3.5-5.1) Chloride Level 97 MMOL/L (98-107) L Carbon Dioxide Level 33 MMOL/L (21-32) H Anion Gap 13 mmol/L (5-15) Blood Urea Nitrogen 77 mg/dL (7-18) H Creatinine 12.3 MG/DL (0.55-1.30) H Estimat Glomerular Filtration Rate 5.3 mL/min (>60) Glucose Level 133 MG/DL (74-106) H Uric Acid 6.7 MG/DL (2.6-7.2) Calcium Level 8.8 MG/DL (8.5-10.1) Phosphorus Level 9.0 MG/DL (2.5-4.9) H Total Bilirubin 0.6 MG/DL (0.2-1.0) Aspartate Amino Transf (AST/SGOT) 14 U/L (15-37) L Alanine Aminotransferase (ALT/SGPT) 10 U/L (12-78) L Alkaline Phosphatase 105 U/L (46-116) C-Reactive Protein, Quantitative 6.6 mg/dL (0.00-0.90) H Pro-B-Type Natriuretic Peptide 22455 pg/mL (0-125) H Total Protein 7.8 G/DL (6.4-8.2) Albumin 2.8 G/DL (3.4-5.0) L Globulin 5.0 g/dL Albumin/Globulin Ratio 0.6 (1.0-2.7) L Digoxin Level 0.3 NG/ML (0.5-2.0) L Current Medications Medications (Trade) Dose Ordered Sig/David Route PRN Reason Start Time Stop Time Status Last Admin Dose Admin Acetaminophen (Tylenol) 650 mg Q4H PRN ORAL Fever 07/20/19 02:00 08/15/19 13:59 Acetaminophen (Tylenol) 650 mg Q4H PRN RECTAL FEVER 07/20/19 01:45 08/15/19 13:44 Bacitracin (Bacitracin 15gm tube) 1 applic THREE TIMES A DAY TOPIC 07/22/19 09:00 08/21/19 08:59 07/24/19 09:01 Carvedilol (Coreg) 25 mg EVERY 12 HOURS NG 07/20/19 21:00 08/17/19 09:59 07/23/19 20:43 Dextrose (Dextrose 50%) 25 ml Q30M PRN IV Hypoglycemia 07/20/19 01:30 08/15/19 13:59 Dextrose (Dextrose 50%) 50 ml Q30M PRN IV Hypoglycemia 07/20/19 01:30 08/15/19 13:59 Heparin Sodium (Porcine) (Heparin 5000 units/ml) 5,000 units EVERY 8 HOURS SUBQ 07/20/19 06:00 08/15/19 13:59 Hydralazine HCl (Apresoline) 10 mg Q4H PRN IV bp over 160 syst 07/22/19 12:00 08/15/19 11:59 Hydralazine HCl (Apresoline) 10 mg Q8HR NG 07/23/19 14:00 08/18/19 18:29 07/23/19 14:30 Levofloxacin 100 ml @ 100 mls/hr Q48H IVPB 07/21/19 15:00 07/24/19 14:59 07/23/19 15:05 Metoclopramide HCl (Reglan) 5 mg EVERY 6 HOURS NG 07/22/19 12:00 08/21/19 11:59 07/24/19 05:35 Metoclopramide HCl (Reglan) 10 mg Q8H PRN IVP Nausea & Vomiting 07/21/19 12:45 08/20/19 12:44 07/23/19 04:10 Nitroglycerin (Ntg) 1 patch Q24H TDERMAL 07/20/19 06:00 08/19/19 05:59 07/24/19 05:35 Pantoprazole (Protonix) 40 mg EVERY 12 HOURS IVP 07/21/19 21:00 08/20/19 20:59 07/24/19 09:01 Sennosides (Senokot) 8.6 mg BIDPRN PRN ORAL Constipation 07/20/19 13:45 08/15/19 13:44 Sevelamer Carbonate (Renvela) 800 mg THREE TIMES A DAY NG 2/3/20 13:00 08/22/19 12:59 07/24/19 09:01 Lee Ann Hyatt M.D. Jul 24, 2019 11:09
[2019-07-24] MEDS ORDERED: Renvela 800mg Pkt ORAL SCH (13:00)
--- NOTE | 2019-07-24 13:17 | Surgery Progress Note ---
Surgery Progress Note Subjective Procedure Performed 1. excision of scrotal lesion - aborted Additional Comments ng tube out comfortable appearing responsive [place] but non verbal Objective Last 24 Hour Vital Signs Date Time Temp Pulse Resp B/P (MAP) Pulse Ox O2 Delivery O2 Flow Rate FiO2 07/24/19 09:23 104 07/24/19 09:00 103 133/74 07/24/19 06:00 130/70 07/24/19 05:35 131/76 07/24/19 04:00 Nasal Cannula 2.0 07/24/19 04:00 98.3 101 20 132/70 (90) 98 07/24/19 04:00 106 07/24/19 00:00 92 07/24/19 00:00 Nasal Cannula 2.0 07/24/19 00:00 98.4 89 20 121/72 (88) 98 07/23/19 22:00 107/66 07/23/19 20:43 98 129/71 07/23/19 20:00 Nasal Cannula 2.0 07/23/19 20:00 98.8 98 20 129/71 (90) 98 07/23/19 20:00 99 07/23/19 16:00 97.5 101 20 118/71 (87) 98 07/23/19 16:00 Nasal Cannula 2.0 07/23/19 15:22 104 07/23/19 14:30 133/65 I&O Intake and Output 07/23/19 07/24/19 19:00 07:00 Intake Total 120 ml 120 ml Balance 120 ml 120 ml IV Total 100 ml Tube Feeding 20 ml 120 ml # Bowel Movements 8 Dressing: saturated Wound: clean Cardiovascular: RSR Abdomen: soft, non-tender, present bowel sounds Extremities: no edema, no tenderness, no cyanosis Laboratory Tests Test 07/24/19 04:00 07/24/19 08:50 Stool Occult Blood Pending White Blood Count 10.0 K/UL (4.8-10.8) Red Blood Count 3.32 M/UL (4.70-6.10) L Hemoglobin 11.3 G/DL (14.2-18.0) L Hematocrit 33.6 % (42.0-52.0) L Mean Corpuscular Volume 101 FL (80-99) H Mean Corpuscular Hemoglobin 34.0 PG (27.0-31.0) H Mean Corpuscular Hemoglobin Concent 33.6 G/DL (32.0-36.0) Red Cell Distribution Width 13.1 % (11.6-14.8) Platelet Count 87 K/UL (150-450) L Mean Platelet Volume 9.5 FL (6.5-10.1) Neutrophils (%) (Auto) % (45.0-75.0) Lymphocytes (%) (Auto) % (20.0-45.0) Monocytes (%) (Auto) % (1.0-10.0) Eosinophils (%) (Auto) % (0.0-3.0) Basophils (%) (Auto) % (0.0-2.0) Neutrophils % (Manual) Pending Lymphocytes % (Manual) Pending Platelet Estimate Pending Platelet Morphology Pending Sodium Level 142 MMOL/L (136-145) Potassium Level 4.3 MMOL/L (3.5-5.1) Chloride Level 97 MMOL/L (98-107) L Carbon Dioxide Level 33 MMOL/L (21-32) H Anion Gap 13 mmol/L (5-15) Blood Urea Nitrogen 77 mg/dL (7-18) H Creatinine 12.3 MG/DL (0.55-1.30) H Estimat Glomerular Filtration Rate 5.3 mL/min (>60) Glucose Level 133 MG/DL (74-106) H Uric Acid 6.7 MG/DL (2.6-7.2) Calcium Level 8.8 MG/DL (8.5-10.1) Phosphorus Level 9.0 MG/DL (2.5-4.9) H Total Bilirubin 0.6 MG/DL (0.2-1.0) Aspartate Amino Transf (AST/SGOT) 14 U/L (15-37) L Alanine Aminotransferase (ALT/SGPT) 10 U/L (12-78) L Alkaline Phosphatase 105 U/L (46-116) C-Reactive Protein, Quantitative 6.6 mg/dL (0.00-0.90) H Pro-B-Type Natriuretic Peptide 10451 pg/mL (0-125) H Total Protein 7.8 G/DL (6.4-8.2) Albumin 2.8 G/DL (3.4-5.0) L Globulin 5.0 g/dL Albumin/Globulin Ratio 0.6 (1.0-2.7) L Digoxin Level 0.3 NG/ML (0.5-2.0) L Plan Problems: (1) Scrotal lesion Assessment & Plan: Continue with 3 times daily dressings okay for bacitracin and Xeroform gauze (2) Cardiac arrest Assessment & Plan: Etiology unknown pending echo appreciate cardiology input Continue current care extubated abg okay hold diet as failed swallow eval coil tier note reviewed agree withslp thank you Thank you will follow with recommendations Zenon Galloway Jul 24, 2019 13:17
[2019-07-24] MEDS: HydrALAZINE 10mg Tab ORAL SCH ×2 (13:47→22:00)
--- NOTE | 2019-07-24 14:40 | Nephrology Progress Note ---
Assessment/Plan Problem List: (1) ESRD (end stage renal disease) (2) Acute respiratory failure (3) Cardiac arrest (4) Diabetes mellitus (5) Cardiomyopathy Assessment interoperative cardiac arrest Cardiomyopathy and Low ejfx ESRD- high K BP low at this time s/p Asystole in [place] Plan dialysis - next 07/24 add Phos binder and adjust dose start Digoxin adjust BP meds self extubated 07/[address] eval PRN BP meds adjust bp meds dose HD next 07/24 2D echo noted per orders Subjective ROS Limited/Unobtainable: No Constitutional: Reports: malaise Objective Objective Last 24 Hour Vital Signs Date Time Temp Pulse Resp B/P (MAP) Pulse Ox O2 Delivery O2 Flow Rate FiO2 07/24/19 09:23 104 07/24/19 09:00 103 133/74 07/24/19 06:00 130/70 07/24/19 05:35 131/76 07/24/19 04:00 Nasal Cannula 2.0 07/24/19 04:00 98.3 101 20 132/70 (90) 98 07/24/19 04:00 106 07/24/19 00:00 92 07/24/19 00:00 Nasal Cannula 2.0 07/24/19 00:00 98.4 89 20 121/72 (88) 98 07/23/19 22:00 107/66 07/23/19 20:43 98 129/71 07/23/19 20:00 Nasal Cannula 2.0 07/23/19 20:00 98.8 98 20 129/71 (90) 98 07/23/19 20:00 99 07/23/19 16:00 97.5 101 20 118/71 (87) 98 07/23/19 16:00 Nasal Cannula 2.0 07/23/19 15:22 104 Intake and Output 07/23/19 07/24/19 19:00 07:00 Intake Total 120 ml 120 ml Balance 120 ml 120 ml IV Total 100 ml Tube Feeding 20 ml 120 ml # Bowel Movements 8 Laboratory Tests 07/24/19 04:00: Stool Occult Blood [Pending] 07/24/19 08:50: White Blood Count 10.0, Red Blood Count 3.32L, Hemoglobin 11.3L, Hematocrit 33.6L, Mean Corpuscular Volume 101H, Mean Corpuscular Hemoglobin 34.0H, Mean Corpuscular Hemoglobin Concent 33.6, Red Cell Distribution Width 13.1, Platelet Count 87L, Mean Platelet Volume 9.5, Neutrophils (%) (Auto) , Lymphocytes (%) ( Auto) , Monocytes (%) (Auto) , Eosinophils (%) (Auto) , Basophils (%) (Auto) , Differential Total Cells Counted 100, Neutrophils % (Manual) 76H, Lymphocytes % (Manual) 16L, Monocytes % (Manual) 6, Eosinophils % (Manual) 2, Basophils % ( Manual) 0, Band Neutrophils 0, Platelet Estimate DecreasedL, Platelet Morphology Normal, Hypochromasia 1+, Anisocytosis 1+, Macrocytosis 1+, Sodium Level 142, Potassium Level 4.3, Chloride Level 97L, Carbon Dioxide Level 33H, Anion Gap 13, Blood Urea Nitrogen 77H, Creatinine 12.3H, Estimat Glomerular Filtration Rate 5.3, Glucose Level 133H, Uric Acid 6.7, Calcium Level 8.8, Phosphorus Level 9.0H, Total Bilirubin 0.6, Aspartate Amino Transf (AST/SGOT) 14L, Alanine Aminotransferase (ALT/SGPT) 10L, Alkaline Phosphatase 105, C- Reactive Protein, Quantitative 6.6H, Pro-B-Type Natriuretic Peptide [id number], Total Protein 7.8, Albumin 2.8L, Globulin 5.0, Albumin/Globulin Ratio 0.6L, Digoxin Level 0.3L Height (Feet): 5 Height (Inches): 5.50 Weight (Pounds): 158 General Appearance: no apparent distress, lethargic EENT: other - NG Cardiovascular: tachycardia Respiratory/Chest: decreased breath sounds Abdomen: distended Objective no change Daniel Delgadillo MD Jul 24, 2019 14:40
--- NOTE | 2019-07-24 17:30 | Internal Med Progress Note ---
Subjective Date of Service: Jul 24, 2019 Physician Name Michael Perez Attending Physician Zuhair Singleton MD Current Medications Medications (Trade) Dose Ordered Sig/David Route PRN Reason Start Time Stop Time Status Last Admin Dose Admin Acetaminophen (Tylenol) 650 mg Q4H PRN ORAL Fever 07/20/19 02:00 08/15/19 13:59 Acetaminophen (Tylenol) 650 mg Q4H PRN RECTAL FEVER 07/20/19 01:45 08/15/19 13:44 Bacitracin (Bacitracin 15gm tube) 1 applic THREE TIMES A DAY TOPIC 07/22/19 09:00 08/21/19 08:59 07/24/19 13:32 Carvedilol (Coreg) 25 mg EVERY 12 HOURS ORAL 07/24/19 21:00 08/17/19 09:59 Dextrose (Dextrose 50%) 25 ml Q30M PRN IV Hypoglycemia 07/20/19 01:30 08/15/19 13:59 Dextrose (Dextrose 50%) 50 ml Q30M PRN IV Hypoglycemia 07/20/19 01:30 08/15/19 13:59 Heparin Sodium (Porcine) (Heparin 5000 units/ml) 5,000 units EVERY 8 HOURS SUBQ 07/20/19 06:00 08/15/19 13:59 Hydralazine HCl (Apresoline) 10 mg Q4H PRN IV bp over 160 syst 07/22/19 12:00 08/15/19 11:59 Hydralazine HCl (Apresoline) 10 mg Q8HR ORAL 07/24/19 14:00 08/18/19 18:29 Metoclopramide HCl (Reglan) 5 mg EVERY 6 HOURS ORAL 07/24/19 18:00 08/21/19 11:59 Metoclopramide HCl (Reglan) 10 mg Q8H PRN IVP Nausea & Vomiting 07/21/19 12:45 08/20/19 12:44 07/23/19 04:10 Nitroglycerin (Ntg) 1 patch Q24H TDERMAL 07/20/19 06:00 08/19/19 05:59 07/24/19 05:35 Pantoprazole (Protonix) 40 mg EVERY 12 HOURS IVP 07/21/19 21:00 08/20/19 20:59 07/24/19 09:01 Sennosides (Senokot) 8.6 mg BIDPRN PRN ORAL Constipation 07/20/19 13:45 08/15/19 13:44 Sevelamer Carbonate (Renvela) 1,600 mg Q6HR ORAL 07/24/19 18:00 08/22/19 12:59 Allergies: Coded Allergies: LISINOPRIL (Verified Allergy, Severe, Shortness of Breath, 07/02/19) THROAT SWELLS UP PENICILLINS (Verified Allergy, Severe, throat swelling, 07/17/19) tolerated Ancef x1 07/16/19 Uncoded Allergies: shellfish (Allergy, Severe, 02/06/19) shortness of breath, vomiting, throat swelling ROS Limited/Unobtainable: No Constitutional: Reports: no symptoms HEENT: Reports: no symptoms Cardiovascular: Reports: no symptoms Respiratory: Reports: no symptoms Gastrointestinal/Abdominal: Reports: no symptoms Genitourinary: Reports: no symptoms Neurologic/Psychiatric: Reports: no symptoms Subjective 49 YO M admitted for scrotal fistulotomy. S/P cardiac arrest. Self extubated . Cover for Int med-Dr Singleton. PATRICK. Less confused; more alert Objective Last Vital Signs Date Time Temp Pulse Resp B/P (MAP) Pulse Ox O2 Delivery O2 Flow Rate FiO2 07/24/19 16:00 97.4 106 20 144/78 (100) 95 07/24/19 16:00 Nasal Cannula 2.0 07/21/19 19:27 21 Laboratory Tests Test 07/24/19 04:00 07/24/19 08:50 Stool Occult Blood Pending White Blood Count 10.0 K/UL (4.8-10.8) Red Blood Count 3.32 M/UL (4.70-6.10) L Hemoglobin 11.3 G/DL (14.2-18.0) L Hematocrit 33.6 % (42.0-52.0) L Mean Corpuscular Volume 101 FL (80-99) H Mean Corpuscular Hemoglobin 34.0 PG (27.0-31.0) H Mean Corpuscular Hemoglobin Concent 33.6 G/DL (32.0-36.0) Red Cell Distribution Width 13.1 % (11.6-14.8) Platelet Count 87 K/UL (150-450) L Mean Platelet Volume 9.5 FL (6.5-10.1) Neutrophils (%) (Auto) % (45.0-75.0) Lymphocytes (%) (Auto) % (20.0-45.0) Monocytes (%) (Auto) % (1.0-10.0) Eosinophils (%) (Auto) % (0.0-3.0) Basophils (%) (Auto) % (0.0-2.0) Differential Total Cells Counted 100 Neutrophils % (Manual) 76 % (45-75) H Lymphocytes % (Manual) 16 % (20-45) L Monocytes % (Manual) 6 % (1-10) Eosinophils % (Manual) 2 % (0-3) Basophils % (Manual) 0 % (0-2) Band Neutrophils 0 % (0-8) Platelet Estimate Decreased L Platelet Morphology Normal Hypochromasia 1+ Anisocytosis 1+ Macrocytosis 1+ Sodium Level 142 MMOL/L (136-145) Potassium Level 4.3 MMOL/L (3.5-5.1) Chloride Level 97 MMOL/L (98-107) L Carbon Dioxide Level 33 MMOL/L (21-32) H Anion Gap 13 mmol/L (5-15) Blood Urea Nitrogen 77 mg/dL (7-18) H Creatinine 12.3 MG/DL (0.55-1.30) H Estimat Glomerular Filtration Rate 5.3 mL/min (>60) Glucose Level 133 MG/DL (74-106) H Uric Acid 6.7 MG/DL (2.6-7.2) Calcium Level 8.8 MG/DL (8.5-10.1) Phosphorus Level 9.0 MG/DL (2.5-4.9) H Total Bilirubin 0.6 MG/DL (0.2-1.0) Aspartate Amino Transf (AST/SGOT) 14 U/L (15-37) L Alanine Aminotransferase (ALT/SGPT) 10 U/L (12-78) L Alkaline Phosphatase 105 U/L (46-116) C-Reactive Protein, Quantitative 6.6 mg/dL (0.00-0.90) H Pro-B-Type Natriuretic Peptide 81016 pg/mL (0-125) H Total Protein 7.8 G/DL (6.4-8.2) Albumin 2.8 G/DL (3.4-5.0) L Globulin 5.0 g/dL Albumin/Globulin Ratio 0.6 (1.0-2.7) L Digoxin Level 0.3 NG/ML (0.5-2.0) L Intake and Output 07/23/19 07/24/19 19:00 07:00 Intake Total 120 ml 120 ml Balance 120 ml 120 ml IV Total 100 ml Tube Feeding 20 ml 120 ml # Bowel Movements 8 Objective PHYSICAL EXAMINATION: GENERAL: The patient is well-developed well-nourished male, intubated and sedated in the intensive care unit. CHEST: nasal canula; Diffuse coarse breath sounds bilaterally without wheezes CARDIOVASCULAR: Regular rhythm and rate. S1, S2 are normal without murmurs, rubs, or gallops. ABDOMEN: Soft, nontender, nondistended. Positive bowel sounds. No evidence of hepatosplenomegaly. Currently, no rebound or guarding noted. EXTREMITIES: Negative for clubbing, cyanosis, edema. NEUROLOGIC: Unable to assess. Assessment/Plan Assessment/Plan ASSESSMENT: This is a 49-year-old male. 1. Scrotal fistula. 2. Status post cardiac arrest. 3. Renal failure. 4. Hypertension. 5. Gout. 6. End stage renal disease on hemodialysis. 7. Cardiomyopathy 8. Systolic CHF 9. dysphagia TREATMENT: 1. Scrotal fistula. Surgery was aborted on 07/16/2019. Follow recommendations of Surgery, Dr. Galloway. 2. Status post cardiac arrest. The patient is S/P self-extubation 07/18/19. A Cardiology consultation has been obtained with Dr. Emmanuel Cortés. Follow recommendations of Cardiology. 3. End stage renal disease. A Nephrology consultation has been obtained with Dr. Daniel Delgadillo. Hemodialysis 07/22/19. Follow recommendations of Nephrology. 4. Hypertension. 5. Gout. 6. PATRICK status 7. Failed swallow eval-patient pulled out NGT. GI=Michael Crowder MD Jul 24, 2019 17:30
[2019-07-24] MEDS: Renvela 800mg Pkt ORAL SCH ×2 (18:06→23:56)
[2019-07-24] MEDS: Metoclopramide 10mg/10ml Liq ORAL SCH ×2 (18:06→23:56)
--- NOTE | 2019-07-24 19:28 | NUR ---
HAND-OFF: Report given to Linda Grossman RN. Patient in stable condition, starting HD now
--- NOTE | 2019-07-24 19:30 | NUR ---
NURSE NOTES: Received report from Magaly HOBSON. Patient resting in bed. A/O x 1. No signs of distress. On O2 at 2L via NC. No respiratory distress noted. Right FA 20g, patent, intact, no redness noted. Currently on hemodialysis. Isolation precaution in place. Safety precaution in place. HOB elevated. Bed locked and lowest position, call light within reach. Will Continue to monitor patient.
[2019-07-24] MEDS: Carvedilol 25mg Tab ORAL SCH (21:00)
--- NOTE | 2019-07-24 22:11 | NUR ---
NURSE NOTES: Hemodialysis done. BP of 105/56, P 105 noted. No acute distress noted. Will continue to monitor.
[2019-07-25] VITALS (7 sets, daily range): BP systolic 100–144; BP diastolic 46–77
--- NOTE | 2019-07-25 03:00 | NUR ---
NURSE NOTES: Pt sleeping in the bed. No acute distress noted at this time. ST on threat monitoring analyst. On 2L NC, no sob noted. Noted pt keeps taking off NC, education done, but need reinforcement. Bed baht given. Scrotal wound cleaned and dressing changed, small amount of serous discharge with yellow slough noted. Will continue to monitor.
[2019-07-25] MEDS: Renvela 800mg Pkt ORAL SCH ×3 (05:15→17:18)
[2019-07-25] MEDS: Metoclopramide 10mg/10ml Liq ORAL SCH ×3 (05:16→17:18)
[2019-07-25] MEDS: HydrALAZINE 10mg Tab ORAL SCH ×3 (05:16→22:00)
[2019-07-25] MEDS: Nitroglycerin Patch 0.4mg TDERMAL SCH (05:17)
[2019-07-25] MEDS: Heparin 5000 units/ml inj SUBQ SCH ×3 (05:18→21:20)
[2019-07-25 05:34] LABS: HEMATOCRIT 31.5 % (42.0-52.0); HEMOGLOBIN 10.8 G/DL (14.2-18.0); MEAN CORPUSCULAR VOLUME 100 FL (80-99); PLATELET COUNT 90 K/UL (150-450); RED BLOOD COUNT 3.15 M/UL (4.70-6.10); RED CELL DISTRIBUTION WIDTH 13.2 % (11.6-14.8); WHITE BLOOD COUNT 6.1 K/UL (4.8-10.8)
[2019-07-25 05:44] LABS: ALANINE AMINOTRANSFERASE 10 U/L (12-78); ALBUMIN 2.7 G/DL (3.4-5.0); ALBUMIN/GLOBULIN RATIO 0.6 (1.0-2.7); ALKALINE PHOSPHATASE 98 U/L (46-116); ANION GAP 11 mmol/L (5-15); ASPARTATE AMINO TRANSFERASE 17 U/L (15-37); BILIRUBIN,TOTAL 0.6 MG/DL (0.2-1.0); BLOOD UREA NITROGEN 47 mg/dL (7-18); CALCIUM 8.8 MG/DL (8.5-10.1); CARBON DIOXIDE 32 MMOL/L (21-32); CHLORIDE 100 MMOL/L (98-107); CREATININE 8.7 MG/DL (0.55-1.30); PHOSPHORUS 5.7 MG/DL (2.5-4.9); SODIUM 143 MMOL/L (136-145)
--- NOTE | 2019-07-25 07:12 | NUR ---
HAND-OFF: Report given to JOCE Ann. No distress noted at this time.
--- NOTE | 2019-07-25 07:18 | NUR ---
NURSE NOTES: Received report from JOCE Grossman. Patient is resting in bed, in stable condition. No s/sx of SOB, room air, breathing is even and unlabored. Denies any presence of pain or discomfort at this time. Bed is in lowest position, brakes engaged. Call light is kept within easy reach. Will continue to monitor patient.
[2019-07-25] MEDS: Pantoprazole Inj IVP SCH (08:48)
[2019-07-25] MEDS: Carvedilol 25mg Tab ORAL SCH ×3 (08:48→20:46)
[2019-07-25] MEDS: Bacitracin Oint 15gm Tube TOPIC SCH ×3 (08:49→17:19)
--- NOTE | 2019-07-25 09:04 | General Progress Note ---
Assessment/Plan Status: unchanged Assessment/Plan: Assessment/Plan Problems: (1) Scrotal lesion ICD Codes: N50.9 - Disorder of male genital organs, unspecified SNOMED: 17413891 (2) Cardiac arrest ICD Codes: I46.9 - Cardiac arrest, cause unspecified SNOMED: 932152094 (3) Anemia ICD Codes: D64.9 - Anemia, unspecified SNOMED: 718998161 (4) Constipation ICD Codes: K59.00 - Constipation, unspecified (5) N/V, TF intolerance Assessment/Plan follow up cardiology recs prn transfusions ppi eating much better will hold NGT or GT feeding plans for now Subjective ROS Limited/Unobtainable: No Allergies: Coded Allergies: LISINOPRIL (Verified Allergy, Severe, Shortness of Breath, 07/02/19) THROAT SWELLS UP PENICILLINS (Verified Allergy, Severe, throat swelling, 07/17/19) tolerated Ancef x1 07/16/19 Uncoded Allergies: shellfish (Allergy, Severe, 02/06/19) shortness of breath, vomiting, throat swelling Objective Last 24 Hour Vital Signs Date Time Temp Pulse Resp B/P (MAP) Pulse Ox O2 Delivery O2 Flow Rate FiO2 07/25/19 08:00 97.0 106 20 110/46 (67) 90 07/25/19 05:17 143/72 07/25/19 05:16 143/72 07/25/19 04:00 97.8 99 20 140/73 (95) 100 07/25/19 04:00 Nasal Cannula 2.0 07/25/19 03:26 99 07/25/19 00:00 97.3 109 20 144/77 (99) 100 07/25/19 00:00 Nasal Cannula 2.0 07/25/19 00:00 106 07/24/19 22:00 97.0 105 16 105/56 (72) 93 07/24/19 22:00 105/56 07/24/19 21:00 105 95/54 07/24/19 20:19 96 Room Air 21 07/24/19 20:19 95 24 98 Room Air 21 07/24/19 20:00 96.2 99 16 159/84 (109) 93 07/24/19 20:00 Nasal Cannula 2.0 07/24/19 19:39 112 07/24/19 16:00 97.4 106 20 144/78 (100) 95 07/24/19 16:00 Nasal Cannula 2.0 07/24/19 15:27 101 07/24/19 14:53 100 07/24/19 12:00 97.5 100 18 142/72 (95) 95 07/24/19 12:00 Nasal Cannula 2.0 07/24/19 11:35 106 07/24/19 09:23 104 Intake and Output 07/24/19 07/25/19 19:00 07:00 Intake Total 258 ml 1200 ml Balance 258 ml 1200 ml Intake Oral 240 ml 200 ml Tube Feeding 18 ml Hemodialysis 1000 ml # Bowel Movements 2 Laboratory Tests 07/25/19 04:00: White Blood Count 6.1, Red Blood Count 3.15L, Hemoglobin 10.8L, Hematocrit 31.5L , Mean Corpuscular Volume 100H, Mean Corpuscular Hemoglobin 34.4H, Mean Corpuscular Hemoglobin Concent 34.3, Red Cell Distribution Width 13.2, Platelet Count 90L, Mean Platelet Volume 13.1H, Neutrophils (%) (Auto) , Lymphocytes (%) (Auto) , Monocytes (%) (Auto) , Eosinophils (%) (Auto) , Basophils (%) (Auto) , Sodium Level 143, Potassium Level 4.0, Chloride Level 100, Carbon Dioxide Level 32, Anion Gap 11, Blood Urea Nitrogen 47H, Creatinine 8.7H, Estimat Glomerular Filtration Rate 7.9, Glucose Level 109H, Uric Acid 4.1, Calcium Level 8.8, Phosphorus Level 5.7H, Magnesium Level 2.1, Total Bilirubin 0.6, Aspartate Amino Transf (AST/SGOT) 17, Alanine Aminotransferase (ALT/SGPT) 10L, Alkaline Phosphatase 98, C-Reactive Protein, Quantitative 7.0H, Pro-B-Type Natriuretic Peptide 98608V, Total Protein 7.5, Albumin 2.7L, Globulin 4.8, Albumin/Globulin Ratio 0.6L, Digoxin Level 0.5 Height (Feet): 5 Height (Inches): 5.50 Weight (Pounds): 148 General Appearance: lethargic EENT: normal ENT inspection Neck: supple Cardiovascular: normal rate Respiratory/Chest: decreased breath sounds Abdomen: normal bowel sounds, non tender, soft Extremities: non-tender Richy Delarosa MD Jul 25, 2019 09:04
--- NOTE | 2019-07-25 09:12 | NUR ---
NURSE NOTES: Patient refused carvidelol this morning. Explained to patient risks and possible negative outcomes of not taking medication, patient continued to refuse. Respected patient rights. BP 110/46. Will continue to monitor patient.
--- NOTE | 2019-07-25 11:29 | Nephrology Progress Note ---
Assessment/Plan Problem List: (1) ESRD (end stage renal disease) (2) Acute respiratory failure (3) Cardiac arrest (4) Diabetes mellitus (5) Cardiomyopathy Assessment interoperative cardiac arrest Cardiomyopathy and Low ejfx ESRD- high K BP low at this time s/p Asystole in OR Plan dialysis - next 07/26 add Phos binder and adjust dose start Digoxin adjust BP meds self extubated 07/[address] eval PRN BP meds adjust bp meds dose HD next 07/24 2D echo noted per orders Subjective ROS Limited/Unobtainable: No Constitutional: Reports: malaise, weakness Objective Objective Last 24 Hour Vital Signs Date Time Temp Pulse Resp B/P (MAP) Pulse Ox O2 Delivery O2 Flow Rate FiO2 07/25/19 08:00 Nasal Cannula 2.0 07/25/19 08:00 97.0 106 20 110/46 (67) 90 07/25/19 07:49 109 07/25/19 05:17 143/72 07/25/19 05:16 143/72 07/25/19 04:00 97.8 99 20 140/73 (95) 100 07/25/19 04:00 Nasal Cannula 2.0 07/25/19 03:26 99 07/25/19 00:00 97.3 109 20 144/77 (99) 100 07/25/19 00:00 Nasal Cannula 2.0 07/25/19 00:00 106 07/24/19 22:00 97.0 105 16 105/56 (72) 93 07/24/19 22:00 105/56 07/24/19 21:00 105 95/54 07/24/19 20:19 96 Room Air 21 07/24/19 20:19 95 24 98 Room Air 21 07/24/19 20:00 96.2 99 16 159/84 (109) 93 07/24/19 20:00 Nasal Cannula 2.0 07/24/19 19:39 112 07/24/19 16:00 97.4 106 20 144/78 (100) 95 07/24/19 16:00 Nasal Cannula 2.0 07/24/19 15:27 101 07/24/19 14:53 100 07/24/19 12:00 97.5 100 18 142/72 (95) 95 07/24/19 12:00 Nasal Cannula 2.0 07/24/19 11:35 106 Intake and Output 07/24/19 07/25/19 19:00 07:00 Intake Total 258 ml 1200 ml Balance 258 ml 1200 ml Intake Oral 240 ml 200 ml Tube Feeding 18 ml Hemodialysis 1000 ml # Bowel Movements 2 Laboratory Tests 07/25/19 04:00: White Blood Count 6.1, Red Blood Count 3.15L, Hemoglobin 10.8L, Hematocrit 31.5L , Mean Corpuscular Volume 100H, Mean Corpuscular Hemoglobin 34.4H, Mean Corpuscular Hemoglobin Concent 34.3, Red Cell Distribution Width 13.2, Platelet Count 90L, Mean Platelet Volume 13.1H, Neutrophils (%) (Auto) , Lymphocytes (%) (Auto) , Monocytes (%) (Auto) , Eosinophils (%) (Auto) , Basophils (%) (Auto) , Sodium Level 143, Potassium Level 4.0, Chloride Level 100, Carbon Dioxide Level 32, Anion Gap 11, Blood Urea Nitrogen 47H, Creatinine 8.7H, Estimat Glomerular Filtration Rate 7.9, Glucose Level 109H, Uric Acid 4.1, Calcium Level 8.8, Phosphorus Level 5.7H, Magnesium Level 2.1, Total Bilirubin 0.6, Aspartate Amino Transf (AST/SGOT) 17, Alanine Aminotransferase (ALT/SGPT) 10L, Alkaline Phosphatase 98, C-Reactive Protein, Quantitative 7.0H, Pro-B-Type Natriuretic Peptide 54513R, Total Protein 7.5, Albumin 2.7L, Globulin 4.8, Albumin/Globulin Ratio 0.6L, Digoxin Level 0.5 Height (Feet): 5 Height (Inches): 5.50 Weight (Pounds): 148 General Appearance: confused, mild distress Cardiovascular: tachycardia Respiratory/Chest: decreased breath sounds Abdomen: distended Objective no change Daniel Delgadillo MD Jul 25, 2019 11:29
--- NOTE | 2019-07-25 12:08 | Infectious Diseases Prog Note ---
Assessment/Plan Assessment/Plan Assessment: Probable aspiration PNA, sp rx -07/20 CXR: Mild pulmonary vascular congestion suspected. Bilateral pleural effusions. -07/17 CXR: Bilateral pleural effusion and mild interstitial congestion and hazy parenchymal opacity present. cardiac arrest asystole during surgical procedure -07/16 CXR: pulmonary edema Non healing scrotal wound; bx showed: ruptured epidermal inclusion cyst with associated abscess formation -07/16 sp attempted excision but procedure aborted due to cardiac arrest VDRF 07/16; extubated 07/18 Afebrile Mild leukocytosis, SP ESRD on HD via L arm AVF Dm2 HTN internal hemorrhoids Plan: -Cont to monitor off abx -07/23 SP LEvaquin #7 -07/16 SP Ancef x1 -f/u cx -Monitor CBC/CMP, temperatures -aspiration precautions -wound care per surgical team -Sx, Neprho, pulm f/u Thank you for this consultation. Will continue to follow along with you. Discussed with RN Subjective Allergies: Coded Allergies: LISINOPRIL (Verified Allergy, Severe, Shortness of Breath, 07/02/19) THROAT SWELLS UP PENICILLINS (Verified Allergy, Severe, throat swelling, 07/17/19) tolerated Ancef x1 07/16/19 Uncoded Allergies: shellfish (Allergy, Severe, 02/06/19) shortness of breath, vomiting, throat swelling Subjective afebrile no leukocytosis at 2l NC Objective Vital Signs Last 24 Hour Vital Signs Date Time Temp Pulse Resp B/P (MAP) Pulse Ox O2 Delivery O2 Flow Rate FiO2 07/25/19 11:54 97.0 101 20 100/61 (74) 90 07/25/19 08:00 Nasal Cannula 2.0 07/25/19 08:00 97.0 106 20 110/46 (67) 90 07/25/19 07:49 109 07/25/19 05:17 143/72 07/25/19 05:16 143/72 07/25/19 04:00 97.8 99 20 140/73 (95) 100 07/25/19 04:00 Nasal Cannula 2.0 07/25/19 03:26 99 07/25/19 00:00 97.3 109 20 144/77 (99) 100 07/25/19 00:00 Nasal Cannula 2.0 07/25/19 00:00 106 07/24/19 22:00 97.0 105 16 105/56 (72) 93 07/24/19 22:00 105/56 07/24/19 21:00 105 95/54 07/24/19 20:19 96 Room Air 21 07/24/19 20:19 95 24 98 Room Air 21 07/24/19 20:00 96.2 99 16 159/84 (109) 93 07/24/19 20:00 Nasal Cannula 2.0 07/24/19 19:39 112 07/24/19 16:00 97.4 106 20 144/78 (100) 95 07/24/19 16:00 Nasal Cannula 2.0 07/24/19 15:27 101 07/24/19 14:53 100 Height (Feet): 5 Height (Inches): 5.50 Weight (Pounds): 148 Objective General Appearance: no apparent distress Head: normocephalic EENT: ETT in place Neck: supple Respiratory: normal breath sounds, no respiratory distress, other - intubated Cardiovascular: normal rate Gastrointestinal: normal inspection, non tender, soft, normal bowel sounds, non -distended Neurologic: oriented x3, normal inspection Skin: normal inspection, normal color, no rash, warm/dry, palpation normal, well hydrated scrotal wound packed Laboratory Tests Test 07/25/19 04:00 White Blood Count 6.1 K/UL (4.8-10.8) Red Blood Count 3.15 M/UL (4.70-6.10) L Hemoglobin 10.8 G/DL (14.2-18.0) L Hematocrit 31.5 % (42.0-52.0) L Mean Corpuscular Volume 100 FL (80-99) H Mean Corpuscular Hemoglobin 34.4 PG (27.0-31.0) H Mean Corpuscular Hemoglobin Concent 34.3 G/DL (32.0-36.0) Red Cell Distribution Width 13.2 % (11.6-14.8) Platelet Count 90 K/UL (150-450) L Mean Platelet Volume 13.1 FL (6.5-10.1) H Neutrophils (%) (Auto) % (45.0-75.0) Lymphocytes (%) (Auto) % (20.0-45.0) Monocytes (%) (Auto) % (1.0-10.0) Eosinophils (%) (Auto) % (0.0-3.0) Basophils (%) (Auto) % (0.0-2.0) Sodium Level 143 MMOL/L (136-145) Potassium Level 4.0 MMOL/L (3.5-5.1) Chloride Level 100 MMOL/L (98-107) Carbon Dioxide Level 32 MMOL/L (21-32) Anion Gap 11 mmol/L (5-15) Blood Urea Nitrogen 47 mg/dL (7-18) H Creatinine 8.7 MG/DL (0.55-1.30) H Estimat Glomerular Filtration Rate 7.9 mL/min (>60) Glucose Level 109 MG/DL (74-106) H Uric Acid 4.1 MG/DL (2.6-7.2) Calcium Level 8.8 MG/DL (8.5-10.1) Phosphorus Level 5.7 MG/DL (2.5-4.9) H Magnesium Level 2.1 MG/DL (1.8-2.4) Total Bilirubin 0.6 MG/DL (0.2-1.0) Aspartate Amino Transf (AST/SGOT) 17 U/L (15-37) Alanine Aminotransferase (ALT/SGPT) 10 U/L (12-78) L Alkaline Phosphatase 98 U/L (46-116) C-Reactive Protein, Quantitative 7.0 mg/dL (0.00-0.90) H Pro-B-Type Natriuretic Peptide 42105 pg/mL (0-125) H Total Protein 7.5 G/DL (6.4-8.2) Albumin 2.7 G/DL (3.4-5.0) L Globulin 4.8 g/dL Albumin/Globulin Ratio 0.6 (1.0-2.7) L Digoxin Level 0.5 NG/ML (0.5-2.0) Current Medications Medications (Trade) Dose Ordered Sig/David Route PRN Reason Start Time Stop Time Status Last Admin Dose Admin Acetaminophen (Tylenol) 650 mg Q4H PRN ORAL Fever 07/20/19 02:00 08/15/19 13:59 Acetaminophen (Tylenol) 650 mg Q4H PRN RECTAL FEVER 07/20/19 01:45 08/15/19 13:44 Bacitracin (Bacitracin 15gm tube) 1 applic THREE TIMES A DAY TOPIC 07/22/19 09:00 08/21/19 08:59 07/25/19 08:49 Carvedilol (Coreg) 25 mg EVERY 12 HOURS ORAL 07/24/19 21:00 08/17/19 09:59 Dextrose (Dextrose 50%) 25 ml Q30M PRN IV Hypoglycemia 07/20/19 01:30 08/15/19 13:59 Dextrose (Dextrose 50%) 50 ml Q30M PRN IV Hypoglycemia 07/20/19 01:30 08/15/19 13:59 Digoxin (Lanoxin) 0.25 mg ONCE ORAL 07/25/19 11:30 07/25/19 12:30 Heparin Sodium (Porcine) (Heparin 5000 units/ml) 5,000 units EVERY 8 HOURS SUBQ 07/20/19 06:00 08/15/19 13:59 Hydralazine HCl (Apresoline) 10 mg Q4H PRN IV bp over 160 syst 07/22/19 12:00 08/15/19 11:59 Hydralazine HCl (Apresoline) 10 mg Q8HR ORAL 07/24/19 14:00 08/18/19 18:29 07/25/19 05:16 Metoclopramide HCl (Reglan) 5 mg EVERY 6 HOURS ORAL 07/24/19 18:00 08/21/19 11:59 07/25/19 05:16 Metoclopramide HCl (Reglan) 10 mg Q8H PRN IVP Nausea & Vomiting 07/21/19 12:45 08/20/19 12:44 07/23/19 04:10 Nitroglycerin (Ntg) 1 patch Q24H TDERMAL 07/20/19 06:00 08/19/19 05:59 07/25/19 05:17 Pantoprazole (Protonix) 40 mg DAILY ORAL 07/26/19 09:00 08/25/19 08:59 Sennosides (Senokot) 8.6 mg BIDPRN PRN ORAL Constipation 07/20/19 13:45 08/15/19 13:44 Sevelamer Carbonate (Renvela) 1,600 mg Q6HR ORAL 07/24/19 18:00 08/22/19 12:59 07/25/19 05:15 Lee Ann Hyatt M.D. Jul 25, 2019 12:08
--- NOTE | 2019-07-25 12:20 | Pulmonology Progress Note ---
Assessment/Plan Assessment/Plan ASSESSMENT probable aspiration pneumonia , s/p treatment s/p cardiac arrest, asystolic - during surgical procedure acute respiratory failure requiring intubation, self extubated 07/18 cardiomyopathy with EF 20-25% CHF with systolic dysfunction scrotal wound /ruptured epidermal inclusion cyst with associated abscess formation ESRD, on hemodialysis History of hypertension Diabetes mellitus Dysphagia Anemia of chronic kidney disease PLAN OF CARE PATRICK self extubated 07/18 02, HHN as needed abx as per ID -completed Echo with EF 20-25%, elevated LA pressure grade 2 carotid duplex less than 50% stenosis bilaterally Guideline directed medical therapy with BB, Isordil and hydralazine (allergic to YELENA) troponin minimally elevated , nonspecific pattern , not suggestive of acute coronary syndrome as per cardio, normalized -possibly due to cardiac arrest attempted excision of nonhealing scrotal wound aborted due to cardiac arrest status post biopsy ; it showed ruptured epidermal inclusion cyst with associated abscess formation, status post abx HD as per hull inspector with close monitoring of volumes and renal parameters, correct electrolytes as needed DVT and GI prophylaxis failed swallow evaluation may need another NG tube, GI on board monitor H&H with goal to keep hemoglobin above 7 anemia work-up consistent with anemia of chronic disease stool OB negative case discussed and evaluated by supervising physician Subjective Allergies: Coded Allergies: LISINOPRIL (Verified Allergy, Severe, Shortness of Breath, 07/02/19) THROAT SWELLS UP PENICILLINS (Verified Allergy, Severe, throat swelling, 07/17/19) tolerated Ancef x1 07/16/19 Uncoded Allergies: shellfish (Allergy, Severe, 02/06/19) shortness of breath, vomiting, throat swelling Subjective afebrile, no signs of resp distress Objective Last 24 Hour Vital Signs Date Time Temp Pulse Resp B/P (MAP) Pulse Ox O2 Delivery O2 Flow Rate FiO2 07/25/19 11:54 97.0 101 20 100/61 (74) 90 07/25/19 08:00 Nasal Cannula 2.0 07/25/19 08:00 97.0 106 20 110/46 (67) 90 07/25/19 07:49 109 07/25/19 05:17 143/72 07/25/19 05:16 143/72 07/25/19 04:00 97.8 99 20 140/73 (95) 100 07/25/19 04:00 Nasal Cannula 2.0 07/25/19 03:26 99 07/25/19 00:00 97.3 109 20 144/77 (99) 100 07/25/19 00:00 Nasal Cannula 2.0 07/25/19 00:00 106 07/24/19 22:00 97.0 105 16 105/56 (72) 93 07/24/19 22:00 105/56 07/24/19 21:00 105 95/54 07/24/19 20:19 96 Room Air 21 07/24/19 20:19 95 24 98 Room Air 21 07/24/19 20:00 96.2 99 16 159/84 (109) 93 07/24/19 20:00 Nasal Cannula 2.0 07/24/19 19:39 112 07/24/19 16:00 97.4 106 20 144/78 (100) 95 07/24/19 16:00 Nasal Cannula 2.0 07/24/19 15:27 101 07/24/19 14:53 100 Intake and Output 07/24/19 07/25/19 19:00 07:00 Intake Total 258 ml 1200 ml Balance 258 ml 1200 ml Intake Oral 240 ml 200 ml Tube Feeding 18 ml Hemodialysis 1000 ml # Bowel Movements 2 General Appearance: no acute distress HEENT: normocephalic, atraumatic, anicteric Respiratory/Chest: lungs clear, no respiratory distress Cardiovascular: tachycardia - low tachy Abdomen: soft, non tender, non distended Extremities: no edema Skin: rash Neurologic/Psychiatric: abnormal gait, alert - confused Musculoskeletal: normal muscle bulk Laboratory Tests 07/25/19 04:00: White Blood Count 6.1, Red Blood Count 3.15L, Hemoglobin 10.8L, Hematocrit 31.5L , Mean Corpuscular Volume 100H, Mean Corpuscular Hemoglobin 34.4H, Mean Corpuscular Hemoglobin Concent 34.3, Red Cell Distribution Width 13.2, Platelet Count 90L, Mean Platelet Volume 13.1H, Neutrophils (%) (Auto) , Lymphocytes (%) (Auto) , Monocytes (%) (Auto) , Eosinophils (%) (Auto) , Basophils (%) (Auto) , Sodium Level 143, Potassium Level 4.0, Chloride Level 100, Carbon Dioxide Level 32, Anion Gap 11, Blood Urea Nitrogen 47H, Creatinine 8.7H, Estimat Glomerular Filtration Rate 7.9, Glucose Level 109H, Uric Acid 4.1, Calcium Level 8.8, Phosphorus Level 5.7H, Magnesium Level 2.1, Total Bilirubin 0.6, Aspartate Amino Transf (AST/SGOT) 17, Alanine Aminotransferase (ALT/SGPT) 10L, Alkaline Phosphatase 98, C-Reactive Protein, Quantitative 7.0H, Pro-B-Type Natriuretic Peptide 36514D, Total Protein 7.5, Albumin 2.7L, Globulin 4.8, Albumin/Globulin Ratio 0.6L, Digoxin Level 0.5 Current Medications Medications (Trade) Dose Ordered Sig/David Route PRN Reason Start Time Stop Time Status Last Admin Dose Admin Acetaminophen (Tylenol) 650 mg Q4H PRN ORAL Fever 07/20/19 02:00 08/15/19 13:59 Acetaminophen (Tylenol) 650 mg Q4H PRN RECTAL FEVER 07/20/19 01:45 08/15/19 13:44 Bacitracin (Bacitracin 15gm tube) 1 applic THREE TIMES A DAY TOPIC 07/22/19 09:00 08/21/19 08:59 07/25/19 08:49 Carvedilol (Coreg) 25 mg EVERY 12 HOURS ORAL 07/24/19 21:00 08/17/19 09:59 Dextrose (Dextrose 50%) 25 ml Q30M PRN IV Hypoglycemia 07/20/19 01:30 08/15/19 13:59 Dextrose (Dextrose 50%) 50 ml Q30M PRN IV Hypoglycemia 07/20/19 01:30 08/15/19 13:59 Digoxin (Lanoxin) 0.25 mg ONCE ORAL 07/25/19 11:30 07/25/19 12:30 Heparin Sodium (Porcine) (Heparin 5000 units/ml) 5,000 units EVERY 8 HOURS SUBQ 07/20/19 06:00 08/15/19 13:59 Hydralazine HCl (Apresoline) 10 mg Q4H PRN IV bp over 160 syst 07/22/19 12:00 08/15/19 11:59 Hydralazine HCl (Apresoline) 10 mg Q8HR ORAL 07/24/19 14:00 08/18/19 18:29 07/25/19 05:16 Metoclopramide HCl (Reglan) 5 mg EVERY 6 HOURS ORAL 07/24/19 18:00 08/21/19 11:59 07/25/19 05:16 Metoclopramide HCl (Reglan) 10 mg Q8H PRN IVP Nausea & Vomiting 07/21/19 12:45 08/20/19 12:44 07/23/19 04:10 Nitroglycerin (Ntg) 1 patch Q24H TDERMAL 07/20/19 06:00 08/19/19 05:59 07/25/19 05:17 Pantoprazole (Protonix) 40 mg DAILY ORAL 07/26/19 09:00 08/25/19 08:59 Sennosides (Senokot) 8.6 mg BIDPRN PRN ORAL Constipation 07/20/19 13:45 08/15/19 13:44 Sevelamer Carbonate (Renvela) 1,600 mg Q6HR ORAL 07/24/19 18:00 08/22/19 12:59 07/25/19 05:15 Kala Urbina ENROLLMENT MANAGEMENT COORDINATOR Jul 25, 2019 12:20
[2019-07-25] MEDS ORDERED: Albuterol/Ipratropium 3ml neb HHN PRN (12:30)
--- NOTE | 2019-07-25 12:59 | Internal Med Progress Note ---
Subjective Date of Service: Jul 25, 2019 Physician Name AnaMichael Attending Physician Zuhair Singleton MD Current Medications Medications (Trade) Dose Ordered Sig/David Route PRN Reason Start Time Stop Time Status Last Admin Dose Admin Acetaminophen (Tylenol) 650 mg Q4H PRN ORAL Fever 07/20/19 02:00 08/15/19 13:59 Acetaminophen (Tylenol) 650 mg Q4H PRN RECTAL FEVER 07/20/19 01:45 08/15/19 13:44 Albuterol/ Ipratropium (Albuterol/ Ipratropium) 3 ml Q4H PRN HHN Shortness of Breath 07/25/19 12:30 07/30/19 12:29 Bacitracin (Bacitracin 15gm tube) 1 applic THREE TIMES A DAY TOPIC 07/22/19 09:00 08/21/19 08:59 07/25/19 12:34 Carvedilol (Coreg) 25 mg EVERY 12 HOURS ORAL 07/24/19 21:00 08/17/19 09:59 Dextrose (Dextrose 50%) 25 ml Q30M PRN IV Hypoglycemia 07/20/19 01:30 08/15/19 13:59 Dextrose (Dextrose 50%) 50 ml Q30M PRN IV Hypoglycemia 07/20/19 01:30 08/15/19 13:59 Heparin Sodium (Porcine) (Heparin 5000 units/ml) 5,000 units EVERY 8 HOURS SUBQ 07/20/19 06:00 08/15/19 13:59 Hydralazine HCl (Apresoline) 10 mg Q4H PRN IV bp over 160 syst 07/22/19 12:00 08/15/19 11:59 Hydralazine HCl (Apresoline) 10 mg Q8HR ORAL 07/24/19 14:00 08/18/19 18:29 07/25/19 05:16 Metoclopramide HCl (Reglan) 5 mg EVERY 6 HOURS ORAL 07/24/19 18:00 08/21/19 11:59 07/25/19 12:35 Metoclopramide HCl (Reglan) 10 mg Q8H PRN IVP Nausea & Vomiting 07/21/19 12:45 08/20/19 12:44 07/23/19 04:10 Nitroglycerin (Ntg) 1 patch Q24H TDERMAL 07/20/19 06:00 08/19/19 05:59 07/25/19 05:17 Pantoprazole (Protonix) 40 mg DAILY ORAL 07/26/19 09:00 08/25/19 08:59 Sennosides (Senokot) 8.6 mg BIDPRN PRN ORAL Constipation 07/20/19 13:45 08/15/19 13:44 Sevelamer Carbonate (Renvela) 1,600 mg Q6HR ORAL 07/24/19 18:00 08/22/19 12:59 07/25/19 12:35 Allergies: Coded Allergies: LISINOPRIL (Verified Allergy, Severe, Shortness of Breath, 07/02/19) THROAT SWELLS UP PENICILLINS (Verified Allergy, Severe, throat swelling, 07/17/19) tolerated Ancef x1 07/16/19 Uncoded Allergies: shellfish (Allergy, Severe, 02/06/19) shortness of breath, vomiting, throat swelling ROS Limited/Unobtainable: No Constitutional: Reports: no symptoms HEENT: Reports: no symptoms Cardiovascular: Reports: no symptoms Respiratory: Reports: no symptoms Gastrointestinal/Abdominal: Reports: no symptoms Genitourinary: Reports: no symptoms Neurologic/Psychiatric: Reports: no symptoms Subjective 49 YO M admitted for scrotal fistulotomy. S/P cardiac arrest. Self extubated . Cover for Int tim-Dr Singleton. PATRICK. Less confused; more alert Objective Last Vital Signs Date Time Temp Pulse Resp B/P (MAP) Pulse Ox O2 Delivery O2 Flow Rate FiO2 07/25/19 12:35 105 07/25/19 12:15 97.0 20 121/62 (81) 100 07/25/19 08:00 Nasal Cannula 2.0 07/24/19 20:19 21 Laboratory Tests Test 07/25/19 04:00 White Blood Count 6.1 K/UL (4.8-10.8) Red Blood Count 3.15 M/UL (4.70-6.10) L Hemoglobin 10.8 G/DL (14.2-18.0) L Hematocrit 31.5 % (42.0-52.0) L Mean Corpuscular Volume 100 FL (80-99) H Mean Corpuscular Hemoglobin 34.4 PG (27.0-31.0) H Mean Corpuscular Hemoglobin Concent 34.3 G/DL (32.0-36.0) Red Cell Distribution Width 13.2 % (11.6-14.8) Platelet Count 90 K/UL (150-450) L Mean Platelet Volume 13.1 FL (6.5-10.1) H Neutrophils (%) (Auto) % (45.0-75.0) Lymphocytes (%) (Auto) % (20.0-45.0) Monocytes (%) (Auto) % (1.0-10.0) Eosinophils (%) (Auto) % (0.0-3.0) Basophils (%) (Auto) % (0.0-2.0) Sodium Level 143 MMOL/L (136-145) Potassium Level 4.0 MMOL/L (3.5-5.1) Chloride Level 100 MMOL/L (98-107) Carbon Dioxide Level 32 MMOL/L (21-32) Anion Gap 11 mmol/L (5-15) Blood Urea Nitrogen 47 mg/dL (7-18) H Creatinine 8.7 MG/DL (0.55-1.30) H Estimat Glomerular Filtration Rate 7.9 mL/min (>60) Glucose Level 109 MG/DL (74-106) H Uric Acid 4.1 MG/DL (2.6-7.2) Calcium Level 8.8 MG/DL (8.5-10.1) Phosphorus Level 5.7 MG/DL (2.5-4.9) H Magnesium Level 2.1 MG/DL (1.8-2.4) Total Bilirubin 0.6 MG/DL (0.2-1.0) Aspartate Amino Transf (AST/SGOT) 17 U/L (15-37) Alanine Aminotransferase (ALT/SGPT) 10 U/L (12-78) L Alkaline Phosphatase 98 U/L (46-116) C-Reactive Protein, Quantitative 7.0 mg/dL (0.00-0.90) H Pro-B-Type Natriuretic Peptide 11629 pg/mL (0-125) H Total Protein 7.5 G/DL (6.4-8.2) Albumin 2.7 G/DL (3.4-5.0) L Globulin 4.8 g/dL Albumin/Globulin Ratio 0.6 (1.0-2.7) L Digoxin Level 0.5 NG/ML (0.5-2.0) Intake and Output 07/24/19 07/25/19 19:00 07:00 Intake Total 258 ml 1200 ml Balance 258 ml 1200 ml Intake Oral 240 ml 200 ml Tube Feeding 18 ml Hemodialysis 1000 ml # Bowel Movements 2 Objective PHYSICAL EXAMINATION: GENERAL: The patient is well-developed well-nourished male, intubated and sedated in the intensive care unit. CHEST: nasal canula; Diffuse coarse breath sounds bilaterally without wheezes CARDIOVASCULAR: Regular rhythm and rate. S1, S2 are normal without murmurs, rubs, or gallops. ABDOMEN: Soft, nontender, nondistended. Positive bowel sounds. No evidence of hepatosplenomegaly. Currently, no rebound or guarding noted. EXTREMITIES: Negative for clubbing, cyanosis, edema. NEUROLOGIC: Unable to assess. Assessment/Plan Assessment/Plan ASSESSMENT: This is a 49-year-old male. 1. Scrotal fistula. 2. Status post cardiac arrest. 3. Renal failure. 4. Hypertension. 5. Gout. 6. End stage renal disease on hemodialysis. 7. Cardiomyopathy 8. Systolic CHF 9. dysphagia TREATMENT: 1. Scrotal fistula. Surgery was aborted on 07/16/2019. Follow recommendations of Surgery, Dr. Galloway. 2. Status post cardiac arrest. The patient is S/P self-extubation 07/18/19. A Cardiology consultation has been obtained with Dr. Emmanuel Cortés. Follow recommendations of Cardiology. 3. End stage renal disease. A Nephrology consultation has been obtained with Dr. Daniel Delgadillo. Hemodialysis 07/22/19. Follow recommendations of Nephrology. 4. Hypertension. 5. Gout. 6. PATRICK status 7. Failed swallow eval-patient pulled out NGT. GI=Michael Crowder MD Jul 25, 2019 12:59
--- NOTE | 2019-07-25 14:10 | NUR ---
NURSE NOTES: Called [facility] Nephrology and spoke with Lakeisha to inform of hemodialysis order for tomorrow 07/26/[address] Delgadillo. Lakeisha acknowledged and informed this nurse will inform Ramon HD nurse. Noted in dialysis log book. Will continue to monitor patient.
--- NOTE | 2019-07-25 15:04 | Surgery Progress Note ---
Surgery Progress Note Subjective Procedure Performed 1. excision of scrotal lesion - aborted Symptoms: improved Objective Last 24 Hour Vital Signs Date Time Temp Pulse Resp B/P (MAP) Pulse Ox O2 Delivery O2 Flow Rate FiO2 07/25/19 13:58 109/60 07/25/19 12:35 105 07/25/19 12:15 97.0 101 20 121/62 (81) 100 07/25/19 12:00 Nasal Cannula 2.0 07/25/19 11:54 97.0 101 20 100/61 (74) 90 07/25/19 11:36 102 07/25/19 08:00 Nasal Cannula 2.0 07/25/19 08:00 97.0 106 20 110/46 (67) 90 07/25/19 07:49 109 07/25/19 05:17 143/72 07/25/19 05:16 143/72 07/25/19 04:00 97.8 99 20 140/73 (95) 100 07/25/19 04:00 Nasal Cannula 2.0 07/25/19 03:26 99 07/25/19 00:00 97.3 109 20 144/77 (99) 100 07/25/19 00:00 Nasal Cannula 2.0 07/25/19 00:00 106 07/24/19 22:00 97.0 105 16 105/56 (72) 93 07/24/19 22:00 105/56 07/24/19 21:00 105 95/54 07/24/19 20:19 96 Room Air 21 07/24/19 20:19 95 24 98 Room Air 21 07/24/19 20:00 96.2 99 16 159/84 (109) 93 07/24/19 20:00 Nasal Cannula 2.0 07/24/19 19:39 112 07/24/19 16:00 97.4 106 20 144/78 (100) 95 07/24/19 16:00 Nasal Cannula 2.0 07/24/19 15:27 101 I&O Intake and Output 07/24/19 07/25/19 19:00 07:00 Intake Total 258 ml 1200 ml Balance 258 ml 1200 ml Intake Oral 240 ml 200 ml Tube Feeding 18 ml Hemodialysis 1000 ml # Bowel Movements 2 Dressing: saturated Wound: clean Cardiovascular: RSR Respiratory: clear Abdomen: soft, non-tender, present bowel sounds Extremities: no edema, no tenderness, no cyanosis Laboratory Tests Test 07/25/19 04:00 White Blood Count 6.1 K/UL (4.8-10.8) Red Blood Count 3.15 M/UL (4.70-6.10) L Hemoglobin 10.8 G/DL (14.2-18.0) L Hematocrit 31.5 % (42.0-52.0) L Mean Corpuscular Volume 100 FL (80-99) H Mean Corpuscular Hemoglobin 34.4 PG (27.0-31.0) H Mean Corpuscular Hemoglobin Concent 34.3 G/DL (32.0-36.0) Red Cell Distribution Width 13.2 % (11.6-14.8) Platelet Count 90 K/UL (150-450) L Mean Platelet Volume 13.1 FL (6.5-10.1) H Neutrophils (%) (Auto) % (45.0-75.0) Lymphocytes (%) (Auto) % (20.0-45.0) Monocytes (%) (Auto) % (1.0-10.0) Eosinophils (%) (Auto) % (0.0-3.0) Basophils (%) (Auto) % (0.0-2.0) Sodium Level 143 MMOL/L (136-145) Potassium Level 4.0 MMOL/L (3.5-5.1) Chloride Level 100 MMOL/L (98-107) Carbon Dioxide Level 32 MMOL/L (21-32) Anion Gap 11 mmol/L (5-15) Blood Urea Nitrogen 47 mg/dL (7-18) H Creatinine 8.7 MG/DL (0.55-1.30) H Estimat Glomerular Filtration Rate 7.9 mL/min (>60) Glucose Level 109 MG/DL (74-106) H Uric Acid 4.1 MG/DL (2.6-7.2) Calcium Level 8.8 MG/DL (8.5-10.1) Phosphorus Level 5.7 MG/DL (2.5-4.9) H Magnesium Level 2.1 MG/DL (1.8-2.4) Total Bilirubin 0.6 MG/DL (0.2-1.0) Aspartate Amino Transf (AST/SGOT) 17 U/L (15-37) Alanine Aminotransferase (ALT/SGPT) 10 U/L (12-78) L Alkaline Phosphatase 98 U/L (46-116) C-Reactive Protein, Quantitative 7.0 mg/dL (0.00-0.90) H Pro-B-Type Natriuretic Peptide 09053 pg/mL (0-125) H Total Protein 7.5 G/DL (6.4-8.2) Albumin 2.7 G/DL (3.4-5.0) L Globulin 4.8 g/dL Albumin/Globulin Ratio 0.6 (1.0-2.7) L Digoxin Level 0.5 NG/ML (0.5-2.0) Plan Problems: (1) Scrotal lesion Assessment & Plan: Continue with 3 times daily dressings okay for bacitracin and Xeroform gauze (2) Cardiac arrest Assessment & Plan: Etiology unknown pending echo appreciate cardiology input Continue current care extubated abg okay diet monitoring calorie count commissary agent note reviewed agree withslp thank you Thank you will follow with recommendations Zenon Galloway Jul 25, 2019 15:04
--- NOTE | 2019-07-25 15:20 | NUR ---
RD ASSESSMENT & RECOMMENDATIONS SEE CARE ACTIVITY FOR COMPLETE ASSESSMENT DAILY ESTIMATED NEEDS: Needs based on Pulmonary, surgical wound, ESRD on HD 69.7kg 25-35 kcals/kg 5189-5324 total kcals 1.25-1.8 g protein/kg 87-125 g total protein Fluid per MD, on HD mL/kg total fluid mLs NUTRITION DIAGNOSIS: Swallowing difficulty r/t respiratory status as evidenced by s/p cardiac arrest in OR for scrotal lesion, s/p extubation, s/p pulling out NGT, now on pureed moist, NTL. CURRENT DIET:Renal, pureed moist w/ NTL PO DIET RECOMMENDATIONS: RENAL DIET (texture per [employer]) ADDITIONAL RECOMMENDATIONS: 1) Continue NEPRO TID w/ poor and variable po intake 2) Nonhealing scrotal wound: Add ARAM BID + nephrovite daily 3) Calibrated bed scale wt 4) Monitor lytes- elev phos (on phos binders) 5) F/up w/ Saravanan Count x 48 hrs
--- NOTE | 2019-07-25 18:46 | NUR ---
NURSE NOTES: Right groin scrotal dressing changed as ordered. Noted.
--- NOTE | 2019-07-25 19:08 | NUR ---
NURSE NOTES: Report received from JOCE Ann. Observed pt lying in the bed, sleeping. ST on dry house operator. ON 2L NC, with no sob, noted pt keeps taking NC off, but no sob noted. R scrotal dressing dry and intact. IV on R FA 20G, SL. Bed in the lowest position. Side rails up x3. Call light within reach. will continue to monitor.
--- NOTE | 2019-07-25 19:23 | NUR ---
HAND-OFF: Report given to JOCE Grossman.
[2019-07-26] VITALS: BP 130/64
--- NOTE | 2019-07-26 | NUR ---
NURSE NOTES: Received repot form Comfort RN, pt. in bed awake, pt. appears to be confused, no signs or symptoms of acute cardiac or respiratory distress noted, bed alarm on, side rails up x's 3 and safety brakes engaged, pt. appears to be sating well on 2L NC - no distress noted, pt. has ROYA shunt for HD, RFA 20G Intact and patent, safety measures continued, will continue with plan of care. Per endorsement pt. is scheduled for hemodialysis in am.
[2019-07-26] MEDS: Renvela 800mg Pkt ORAL SCH ×4 (00:02→18:45)
[2019-07-26] MEDS: Metoclopramide 10mg/10ml Liq ORAL SCH ×4 (00:02→18:45)
--- NOTE | 2019-07-26 00:09 | NUR ---
HAND-OFF: Report given to JOCE Ramos. No distress noted at this time.
[2019-07-26 04:00] VITALS: BP 140/92
[2019-07-26 04:56] LABS: HEMATOCRIT 32.3 % (42.0-52.0); MEAN CORPUSCULAR VOLUME 101 FL (80-99); PLATELET COUNT 88 K/UL (150-450); RED BLOOD COUNT 3.19 M/UL (4.70-6.10); RED CELL DISTRIBUTION WIDTH 12.6 % (11.6-14.8); WHITE BLOOD COUNT 8.8 K/UL (4.8-10.8)
[2019-07-26] MEDS: Heparin 5000 units/ml inj SUBQ SCH ×3 (05:04→22:00)
[2019-07-26] MEDS: Nitroglycerin Patch 0.4mg TDERMAL SCH (05:08)
[2019-07-26] MEDS: HydrALAZINE 10mg Tab ORAL SCH ×2 (05:08→23:24)
[2019-07-26 05:18] LABS: ALANINE AMINOTRANSFERASE 8 U/L (12-78); ALBUMIN 2.7 G/DL (3.4-5.0); ALBUMIN/GLOBULIN RATIO 0.5 (1.0-2.7); ALKALINE PHOSPHATASE 88 U/L (46-116); ANION GAP 9 mmol/L (5-15); ASPARTATE AMINO TRANSFERASE 15 U/L (15-37); BILIRUBIN,TOTAL 0.7 MG/DL (0.2-1.0); BLOOD UREA NITROGEN 60 mg/dL (7-18); CALCIUM 9.2 MG/DL (8.5-10.1); CARBON DIOXIDE 34 MMOL/L (21-32); CHLORIDE 100 MMOL/L (98-107); CREATININE 10.9 MG/DL (0.55-1.30); PHOSPHORUS 6.5 MG/DL (2.5-4.9); POTASSIUM 4.4 MMOL/L (3.5-5.1); SODIUM 143 MMOL/L (136-145)
--- NOTE | 2019-07-26 07:32 | NUR ---
HAND-OFF: Report given to Asher RN, pt. remains stable and no signs of distress noted-aware to f/u on am labs.
[2019-07-26 08:00] VITALS: BP 120/60
[2019-07-26] MEDS: Bacitracin Oint 15gm Tube TOPIC SCH ×3 (08:15→18:45)
[2019-07-26] MEDS: Carvedilol 25mg Tab ORAL SCH ×2 (08:15→20:58)
--- NOTE | 2019-07-26 10:11 | NUR ---
NURSE NOTES: Patient is able to follow commands but remains unable to make needs known verbally or with use of gestures, he is able to remain in bed and reposition self, surgical wound is covered and protected. patient is able to feed self with minimal assistance.
--- NOTE | 2019-07-26 10:30 | Nephrology Progress Note ---
Assessment/Plan Problem List: (1) ESRD (end stage renal disease) (2) Acute respiratory failure (3) Cardiac arrest (4) Diabetes mellitus (5) Cardiomyopathy Assessment interoperative cardiac arrest Cardiomyopathy and Low ejfx ESRD- high K BP low at this time s/p Asystole in OR Plan dialysis - next 07/26 add Phos binder and adjust dose start Digoxin adjust BP meds self extubated 07/[address] eval PRN BP meds adjust bp meds dose HD next 07/24 2D echo noted per orders Subjective ROS Limited/Unobtainable: No Constitutional: Reports: malaise, weakness Objective Objective Last 24 Hour Vital Signs Date Time Temp Pulse Resp B/P (MAP) Pulse Ox O2 Delivery O2 Flow Rate FiO2 07/26/19 08:15 103 120/60 07/26/19 08:00 Nasal Cannula 2.0 07/26/19 08:00 98 07/26/19 08:00 97.2 103 20 120/60 (80) 97 07/26/19 05:08 140/92 07/26/19 05:08 140/92 07/26/19 04:00 96.4 94 16 140/92 (108) 99 07/26/19 04:00 2.0 07/26/19 04:00 Nasal Cannula 2.0 07/26/19 03:30 101 07/26/19 00:00 Nasal Cannula 2.0 07/26/19 00:00 97.3 85 16 130/64 (86) 97 07/26/19 00:00 Nasal Cannula 2.0 07/26/19 00:00 2.0 07/25/19 23:36 90 07/25/19 22:00 102/55 07/25/19 20:46 104 141/74 07/25/19 20:00 Nasal Cannula 2.0 07/25/19 20:00 97.3 103 16 110/70 (83) 95 07/25/19 20:00 104 07/25/19 19:38 97 Room Air 21 07/25/19 19:38 101 22 97 Room Air 21 07/25/19 16:00 Nasal Cannula 2.0 07/25/19 16:00 108 07/25/19 15:35 97.2 101 20 111/71 (84) 100 07/25/19 13:58 109/60 07/25/19 12:35 105 07/25/19 12:15 97.0 101 20 121/62 (81) 100 07/25/19 12:00 Nasal Cannula 2.0 07/25/19 11:54 97.0 101 20 100/61 (74) 90 07/25/19 11:36 102 Intake and Output 07/25/19 07/26/19 19:00 07:00 Intake Total 400 ml Balance 400 ml Intake Oral 400 ml # Bowel Movements 3 2 Laboratory Tests 07/26/19 03:50: White Blood Count 8.8, Red Blood Count 3.19L, Hemoglobin 11.0L, Hematocrit 32.3L , Mean Corpuscular Volume 101H, Mean Corpuscular Hemoglobin 34.4H, Mean Corpuscular Hemoglobin Concent 34.1, Red Cell Distribution Width 12.6, Platelet Count 88L, Mean Platelet Volume 10.4H, Neutrophils (%) (Auto) , Lymphocytes (%) (Auto) , Monocytes (%) (Auto) , Eosinophils (%) (Auto) , Basophils (%) (Auto) , Sodium Level 143, Potassium Level 4.4, Chloride Level 100, Carbon Dioxide Level 34H, Anion Gap 9, Blood Urea Nitrogen 60H, Creatinine 10.9H, Estimat Glomerular Filtration Rate 6.1, Glucose Level 124H, Calcium Level 9.2, Phosphorus Level 6.5H, Magnesium Level 2.1, Total Bilirubin 0.7, Aspartate Amino Transf (AST/SGOT ) 15, Alanine Aminotransferase (ALT/SGPT) 8L, Alkaline Phosphatase 88, C- Reactive Protein, Quantitative 9.5H, Pro-B-Type Natriuretic Peptide 9686H, Total Protein 7.7, Albumin 2.7L, Globulin 5.0, Albumin/Globulin Ratio 0.5L, Digoxin Level 0.8 Height (Feet): 5 Height (Inches): 5.50 Weight (Pounds): 146 General Appearance: no apparent distress, confused Cardiovascular: tachycardia Respiratory/Chest: decreased breath sounds Abdomen: soft Objective no change Daniel Delgadillo MD Jul 26, 2019 10:30
--- NOTE | 2019-07-26 11:38 | GI Progress Note ---
Assessment/Plan Problems: (1) Scrotal lesion ICD Codes: N50.9 - Disorder of male genital organs, unspecified SNOMED: 64570414 (2) Cardiac arrest ICD Codes: I46.9 - Cardiac arrest, cause unspecified SNOMED: 922920670 (3) Anemia ICD Codes: D64.9 - Anemia, unspecified SNOMED: 642818668 (4) Constipation ICD Codes: K59.00 - Constipation, unspecified SNOMED: 71003191 Status: stable, progressing Status Narrative Discussed with Dr. Delarosa. Assessment/Plan follow up cardiology recs prn transfusions ppi eating much better will hold NGT or GT feeding plans for now The patient was seen and examined at bedside and all new and available data was reviewed in the patients chart. I agree with the above findings, impression and plan. (Patient seen earlier today. Signature stamp does not reflect patient encounter time.). - Richy Delarosa MD Subjective Gastrointestinal/Abdominal: Reports: no symptoms Subjective limited Objective Last 24 Hour Vital Signs Date Time Temp Pulse Resp B/P (MAP) Pulse Ox O2 Delivery O2 Flow Rate FiO2 07/26/19 08:15 103 120/60 07/26/19 08:00 Nasal Cannula 2.0 07/26/19 08:00 98 07/26/19 08:00 97.2 103 20 120/60 (80) 97 07/26/19 05:08 140/92 07/26/19 05:08 140/92 07/26/19 04:00 96.4 94 16 140/92 (108) 99 07/26/19 04:00 2.0 07/26/19 04:00 Nasal Cannula 2.0 07/26/19 03:30 101 07/26/19 00:00 Nasal Cannula 2.0 07/26/19 00:00 97.3 85 16 130/64 (86) 97 07/26/19 00:00 Nasal Cannula 2.0 07/26/19 00:00 2.0 07/25/19 23:36 90 07/25/19 22:00 102/55 07/25/19 20:46 104 141/74 07/25/19 20:00 Nasal Cannula 2.0 07/25/19 20:00 97.3 103 16 110/70 (83) 95 07/25/19 20:00 104 07/25/19 19:38 97 Room Air 21 07/25/19 19:38 101 22 97 Room Air 21 07/25/19 16:00 Nasal Cannula 2.0 07/25/19 16:00 108 07/25/19 15:35 97.2 101 20 111/71 (84) 100 07/25/19 13:58 109/60 07/25/19 12:35 105 07/25/19 12:15 97.0 101 20 121/62 (81) 100 07/25/19 12:00 Nasal Cannula 2.0 07/25/19 11:54 97.0 101 20 100/61 (74) 90 Intake and Output 07/25/19 07/26/19 19:00 07:00 Intake Total 400 ml Balance 400 ml Intake Oral 400 ml # Bowel Movements 3 2 Laboratory Tests Test 07/26/19 03:50 White Blood Count 8.8 K/UL (4.8-10.8) Red Blood Count 3.19 M/UL (4.70-6.10) L Hemoglobin 11.0 G/DL (14.2-18.0) L Hematocrit 32.3 % (42.0-52.0) L Mean Corpuscular Volume 101 FL (80-99) H Mean Corpuscular Hemoglobin 34.4 PG (27.0-31.0) H Mean Corpuscular Hemoglobin Concent 34.1 G/DL (32.0-36.0) Red Cell Distribution Width 12.6 % (11.6-14.8) Platelet Count 88 K/UL (150-450) L Mean Platelet Volume 10.4 FL (6.5-10.1) H Neutrophils (%) (Auto) % (45.0-75.0) Lymphocytes (%) (Auto) % (20.0-45.0) Monocytes (%) (Auto) % (1.0-10.0) Eosinophils (%) (Auto) % (0.0-3.0) Basophils (%) (Auto) % (0.0-2.0) Sodium Level 143 MMOL/L (136-145) Potassium Level 4.4 MMOL/L (3.5-5.1) Chloride Level 100 MMOL/L (98-107) Carbon Dioxide Level 34 MMOL/L (21-32) H Anion Gap 9 mmol/L (5-15) Blood Urea Nitrogen 60 mg/dL (7-18) H Creatinine 10.9 MG/DL (0.55-1.30) H Estimat Glomerular Filtration Rate 6.1 mL/min (>60) Glucose Level 124 MG/DL (74-106) H Calcium Level 9.2 MG/DL (8.5-10.1) Phosphorus Level 6.5 MG/DL (2.5-4.9) H Magnesium Level 2.1 MG/DL (1.8-2.4) Total Bilirubin 0.7 MG/DL (0.2-1.0) Aspartate Amino Transf (AST/SGOT) 15 U/L (15-37) Alanine Aminotransferase (ALT/SGPT) 8 U/L (12-78) L Alkaline Phosphatase 88 U/L (46-116) C-Reactive Protein, Quantitative 9.5 mg/dL (0.00-0.90) H Pro-B-Type Natriuretic Peptide 9686 pg/mL (0-125) H Total Protein 7.7 G/DL (6.4-8.2) Albumin 2.7 G/DL (3.4-5.0) L Globulin 5.0 g/dL Albumin/Globulin Ratio 0.5 (1.0-2.7) L Digoxin Level 0.8 NG/ML (0.5-2.0) Height (Feet): 5 Height (Inches): 5.50 Weight (Pounds): 146 General Appearance: WD/WN, no apparent distress, alert Cardiovascular: normal rate Respiratory/Chest: normal breath sounds, no respiratory distress Abdominal Exam: normal bowel sounds, non tender, soft Extremities: normal range of motion, non-tender Belem Lynch [employer] ATTEND[employer] Jul 26, 2019 11:38
--- NOTE | 2019-07-26 11:38 | Infectious Diseases Prog Note ---
Assessment/Plan Assessment/Plan Assessment: Probable aspiration PNA, sp rx -07/20 CXR: Mild pulmonary vascular congestion suspected. Bilateral pleural effusions. -07/17 CXR: Bilateral pleural effusion and mild interstitial congestion and hazy parenchymal opacity present. cardiac arrest asystole during surgical procedure -07/16 CXR: pulmonary edema Non healing scrotal wound; bx showed: ruptured epidermal inclusion cyst with associated abscess formation -07/16 sp attempted excision but procedure aborted due to cardiac arrest VDRF 07/16; extubated 07/18 Afebrile Mild leukocytosis, SP ESRD on HD via L arm AVF Dm2 HTN internal hemorrhoids Plan: -Cont to monitor off abx -07/23 SP LEvaquin #7 -07/16 SP Ancef x1 -f/u cx -Monitor CBC/CMP, temperatures -aspiration precautions -wound care per surgical team -Sx, Neprho, pulm f/u Thank you for this consultation. Will continue to follow along with you. Discussed with RN Subjective Allergies: Coded Allergies: LISINOPRIL (Verified Allergy, Severe, Shortness of Breath, 07/02/19) THROAT SWELLS UP PENICILLINS (Verified Allergy, Severe, throat swelling, 07/17/19) tolerated Ancef x1 07/16/19 Uncoded Allergies: shellfish (Allergy, Severe, 02/06/19) shortness of breath, vomiting, throat swelling Subjective afebrile no leukocytosis at 2l NC Objective Vital Signs Last 24 Hour Vital Signs Date Time Temp Pulse Resp B/P (MAP) Pulse Ox O2 Delivery O2 Flow Rate FiO2 07/26/19 08:15 103 120/60 07/26/19 08:00 Nasal Cannula 2.0 07/26/19 08:00 98 07/26/19 08:00 97.2 103 20 120/60 (80) 97 07/26/19 05:08 140/92 07/26/19 05:08 140/92 07/26/19 04:00 96.4 94 16 140/92 (108) 99 07/26/19 04:00 2.0 07/26/19 04:00 Nasal Cannula 2.0 07/26/19 03:30 101 07/26/19 00:00 Nasal Cannula 2.0 07/26/19 00:00 97.3 85 16 130/64 (86) 97 07/26/19 00:00 Nasal Cannula 2.0 07/26/19 00:00 2.0 07/25/19 23:36 90 07/25/19 22:00 102/55 07/25/19 20:46 104 141/74 07/25/19 20:00 Nasal Cannula 2.0 07/25/19 20:00 97.3 103 16 110/70 (83) 95 07/25/19 20:00 104 07/25/19 19:38 97 Room Air 21 07/25/19 19:38 101 22 97 Room Air 21 07/25/19 16:00 Nasal Cannula 2.0 07/25/19 16:00 108 07/25/19 15:35 97.2 101 20 111/71 (84) 100 07/25/19 13:58 109/60 07/25/19 12:35 105 07/25/19 12:15 97.0 101 20 121/62 (81) 100 07/25/19 12:00 Nasal Cannula 2.0 07/25/19 11:54 97.0 101 20 100/61 (74) 90 Height (Feet): 5 Height (Inches): 5.50 Weight (Pounds): 146 Objective General Appearance: no apparent distress Head: normocephalic EENT: ETT in place Neck: supple Respiratory: normal breath sounds, no respiratory distress, other - intubated Cardiovascular: normal rate Gastrointestinal: normal inspection, non tender, soft, normal bowel sounds, non -distended Neurologic: oriented x3, normal inspection Skin: normal inspection, normal color, no rash, warm/dry, palpation normal, well hydrated scrotal wound packed Laboratory Tests Test 07/26/19 03:50 White Blood Count 8.8 K/UL (4.8-10.8) Red Blood Count 3.19 M/UL (4.70-6.10) L Hemoglobin 11.0 G/DL (14.2-18.0) L Hematocrit 32.3 % (42.0-52.0) L Mean Corpuscular Volume 101 FL (80-99) H Mean Corpuscular Hemoglobin 34.4 PG (27.0-31.0) H Mean Corpuscular Hemoglobin Concent 34.1 G/DL (32.0-36.0) Red Cell Distribution Width 12.6 % (11.6-14.8) Platelet Count 88 K/UL (150-450) L Mean Platelet Volume 10.4 FL (6.5-10.1) H Neutrophils (%) (Auto) % (45.0-75.0) Lymphocytes (%) (Auto) % (20.0-45.0) Monocytes (%) (Auto) % (1.0-10.0) Eosinophils (%) (Auto) % (0.0-3.0) Basophils (%) (Auto) % (0.0-2.0) Sodium Level 143 MMOL/L (136-145) Potassium Level 4.4 MMOL/L (3.5-5.1) Chloride Level 100 MMOL/L (98-107) Carbon Dioxide Level 34 MMOL/L (21-32) H Anion Gap 9 mmol/L (5-15) Blood Urea Nitrogen 60 mg/dL (7-18) H Creatinine 10.9 MG/DL (0.55-1.30) H Estimat Glomerular Filtration Rate 6.1 mL/min (>60) Glucose Level 124 MG/DL (74-106) H Calcium Level 9.2 MG/DL (8.5-10.1) Phosphorus Level 6.5 MG/DL (2.5-4.9) H Magnesium Level 2.1 MG/DL (1.8-2.4) Total Bilirubin 0.7 MG/DL (0.2-1.0) Aspartate Amino Transf (AST/SGOT) 15 U/L (15-37) Alanine Aminotransferase (ALT/SGPT) 8 U/L (12-78) L Alkaline Phosphatase 88 U/L (46-116) C-Reactive Protein, Quantitative 9.5 mg/dL (0.00-0.90) H Pro-B-Type Natriuretic Peptide 9686 pg/mL (0-125) H Total Protein 7.7 G/DL (6.4-8.2) Albumin 2.7 G/DL (3.4-5.0) L Globulin 5.0 g/dL Albumin/Globulin Ratio 0.5 (1.0-2.7) L Digoxin Level 0.8 NG/ML (0.5-2.0) Current Medications Medications (Trade) Dose Ordered Sig/David Route PRN Reason Start Time Stop Time Status Last Admin Dose Admin Acetaminophen (Tylenol) 650 mg Q4H PRN ORAL Fever 07/20/19 02:00 08/15/19 13:59 Acetaminophen (Tylenol) 650 mg Q4H PRN RECTAL FEVER 07/20/19 01:45 08/15/19 13:44 Albuterol/ Ipratropium (Albuterol/ Ipratropium) 3 ml Q4H PRN HHN Shortness of Breath 07/25/19 12:30 07/30/19 12:29 Bacitracin (Bacitracin 15gm tube) 1 applic THREE TIMES A DAY TOPIC 07/22/19 09:00 08/21/19 08:59 07/26/19 08:15 Carvedilol (Coreg) 25 mg EVERY 12 HOURS ORAL 07/24/19 21:00 08/17/19 09:59 07/26/19 08:15 Dextrose (Dextrose 50%) 25 ml Q30M PRN IV Hypoglycemia 07/20/19 01:30 08/15/19 13:59 Dextrose (Dextrose 50%) 50 ml Q30M PRN IV Hypoglycemia 07/20/19 01:30 08/15/19 13:59 Digoxin (Lanoxin) 0.25 mg ONCE ORAL 07/26/19 10:30 07/26/19 12:00 Docusate Sodium (Colace) 100 mg THREE TIMES A DAY ORAL 07/26/19 13:00 08/25/19 12:59 Heparin Sodium (Porcine) (Heparin 5000 units/ml) 5,000 units EVERY 8 HOURS SUBQ 07/20/19 06:00 08/15/19 13:59 Hydralazine HCl (Apresoline) 10 mg Q4H PRN IV bp over 160 syst 07/22/19 12:00 08/15/19 11:59 Hydralazine HCl (Apresoline) 20 mg Q8HR ORAL 07/26/19 14:00 08/18/19 18:29 Metoclopramide HCl (Reglan) 5 mg EVERY 6 HOURS ORAL 07/24/19 18:00 08/21/19 11:59 07/26/19 11:06 Metoclopramide HCl (Reglan) 10 mg Q8H PRN IVP Nausea & Vomiting 07/21/19 12:45 08/20/19 12:44 07/23/19 04:10 Nitroglycerin (Ntg) 1 patch Q24H TDERMAL 07/20/19 06:00 08/19/19 05:59 07/26/19 05:08 Pantoprazole (Protonix) 40 mg BID ORAL 07/26/19 18:00 08/25/19 08:59 Sennosides (Senokot) 8.6 mg BIDPRN PRN ORAL Constipation 07/20/19 13:45 08/15/19 13:44 Sevelamer Carbonate (Renvela) 2,400 mg Q6HR ORAL 07/26/19 12:00 08/22/19 12:59 07/26/19 11:06 Lee Ann Hyatt M.D. Jul 26, 2019 11:38
[2019-07-26 12:00] VITALS: BP 141/76
--- NOTE | 2019-07-26 12:16 | Pulmonology Progress Note ---
Assessment/Plan Problems: (1) Cardiac arrest (2) Acute respiratory failure (3) ESRD (end stage renal disease) (4) Diabetes mellitus (5) Cardiomyopathy (6) Hypertension Assessment/Plan pt/ot evaluation HD by nephrology monitor BP titrate cardiac meds sliding scale diabetic diet dc planning Subjective ROS Limited/Unobtainable: No Constitutional: Reports: no symptoms HEENT: Repors: no symptoms Respiratory: Reports: no symptoms Allergies: Coded Allergies: LISINOPRIL (Verified Allergy, Severe, Shortness of Breath, 07/02/19) THROAT SWELLS UP PENICILLINS (Verified Allergy, Severe, throat swelling, 07/17/19) tolerated Ancef x1 07/16/19 Uncoded Allergies: shellfish (Allergy, Severe, 02/06/19) shortness of breath, vomiting, throat swelling Objective Last 24 Hour Vital Signs Date Time Temp Pulse Resp B/P (MAP) Pulse Ox O2 Delivery O2 Flow Rate FiO2 07/26/19 12:00 Nasal Cannula 2.0 07/26/19 12:00 97.2 89 21 141/76 (97) 94 07/26/19 12:00 91 07/26/19 08:15 103 120/60 07/26/19 08:00 Nasal Cannula 2.0 07/26/19 08:00 98 07/26/19 08:00 97.2 103 20 120/60 (80) 97 07/26/19 05:08 140/92 07/26/19 05:08 140/92 07/26/19 04:00 96.4 94 16 140/92 (108) 99 07/26/19 04:00 2.0 07/26/19 04:00 Nasal Cannula 2.0 07/26/19 03:30 101 07/26/19 00:00 Nasal Cannula 2.0 07/26/19 00:00 97.3 85 16 130/64 (86) 97 07/26/19 00:00 Nasal Cannula 2.0 07/26/19 00:00 2.0 07/25/19 23:36 90 07/25/19 22:00 102/55 07/25/19 20:46 104 141/74 07/25/19 20:00 Nasal Cannula 2.0 07/25/19 20:00 97.3 103 16 110/70 (83) 95 2/5/20 20:00 104 07/25/19 19:38 97 Room Air 21 07/25/19 19:38 101 22 97 Room Air 21 07/25/19 16:00 Nasal Cannula 2.0 07/25/19 16:00 108 07/25/19 15:35 97.2 101 20 111/71 (84) 100 07/25/19 13:58 109/60 07/25/19 12:35 105 Intake and Output 07/25/19 07/26/19 19:00 07:00 Intake Total 400 ml Balance 400 ml Intake Oral 400 ml # Bowel Movements 3 2 General Appearance: WD/WN HEENT: normocephalic, atraumatic, anicteric Respiratory/Chest: chest wall non-tender, lungs clear Cardiovascular: normal peripheral pulses, normal rate, regular rhythm Abdomen: normal bowel sounds, soft, non tender Genitourinary: normal external genitalia Extremities: no clubbing Laboratory Tests 07/26/19 03:50: White Blood Count 8.8, Red Blood Count 3.19L, Hemoglobin 11.0L, Hematocrit 32.3L , Mean Corpuscular Volume 101H, Mean Corpuscular Hemoglobin 34.4H, Mean Corpuscular Hemoglobin Concent 34.1, Red Cell Distribution Width 12.6, Platelet Count 88L, Mean Platelet Volume 10.4H, Neutrophils (%) (Auto) , Lymphocytes (%) (Auto) , Monocytes (%) (Auto) , Eosinophils (%) (Auto) , Basophils (%) (Auto) , Sodium Level 143, Potassium Level 4.4, Chloride Level 100, Carbon Dioxide Level 34H, Anion Gap 9, Blood Urea Nitrogen 60H, Creatinine 10.9H, Estimat Glomerular Filtration Rate 6.1, Glucose Level 124H, Calcium Level 9.2, Phosphorus Level 6.5H, Magnesium Level 2.1, Total Bilirubin 0.7, Aspartate Amino Transf (AST/SGOT ) 15, Alanine Aminotransferase (ALT/SGPT) 8L, Alkaline Phosphatase 88, C- Reactive Protein, Quantitative 9.5H, Pro-B-Type Natriuretic Peptide 9686H, Total Protein 7.7, Albumin 2.7L, Globulin 5.0, Albumin/Globulin Ratio 0.5L, Digoxin Level 0.8 Current Medications Medications (Trade) Dose Ordered Sig/David Route PRN Reason Start Time Stop Time Status Last Admin Dose Admin Acetaminophen (Tylenol) 650 mg Q4H PRN ORAL Fever 07/20/19 02:00 08/15/19 13:59 Acetaminophen (Tylenol) 650 mg Q4H PRN RECTAL FEVER 07/20/19 01:45 08/15/19 13:44 Albuterol/ Ipratropium (Albuterol/ Ipratropium) 3 ml Q4H PRN HHN Shortness of Breath 07/25/19 12:30 07/30/19 12:29 Bacitracin (Bacitracin 15gm tube) 1 applic THREE TIMES A DAY TOPIC 07/22/19 09:00 08/21/19 08:59 07/26/19 08:15 Carvedilol (Coreg) 25 mg EVERY 12 HOURS ORAL 07/24/19 21:00 08/17/19 09:59 07/26/19 08:15 Dextrose (Dextrose 50%) 25 ml Q30M PRN IV Hypoglycemia 07/20/19 01:30 08/15/19 13:59 Dextrose (Dextrose 50%) 50 ml Q30M PRN IV Hypoglycemia 07/20/19 01:30 08/15/19 13:59 Docusate Sodium (Colace) 100 mg THREE TIMES A DAY ORAL 07/26/19 13:00 08/25/19 12:59 Heparin Sodium (Porcine) (Heparin 5000 units/ml) 5,000 units EVERY 8 HOURS SUBQ 07/20/19 06:00 08/15/19 13:59 Hydralazine HCl (Apresoline) 10 mg Q4H PRN IV bp over 160 syst 07/22/19 12:00 08/15/19 11:59 Hydralazine HCl (Apresoline) 20 mg Q8HR ORAL 07/26/19 14:00 08/18/19 18:29 Metoclopramide HCl (Reglan) 5 mg EVERY 6 HOURS ORAL 07/24/19 18:00 08/21/19 11:59 07/26/19 11:06 Metoclopramide HCl (Reglan) 10 mg Q8H PRN IVP Nausea & Vomiting 07/21/19 12:45 08/20/19 12:44 07/23/19 04:10 Nitroglycerin (Ntg) 1 patch Q24H TDERMAL 07/20/19 06:00 08/19/19 05:59 07/26/19 05:08 Pantoprazole (Protonix) 40 mg BID ORAL 07/26/19 18:00 08/25/19 08:59 Sennosides (Senokot) 8.6 mg BIDPRN PRN ORAL Constipation 07/20/19 13:45 08/15/19 13:44 Sevelamer Carbonate (Renvela) 2,400 mg Q6HR ORAL 07/26/19 12:00 08/22/19 12:59 07/26/19 11:06 Juan Carlos Soto MD Jul 26, 2019 12:16
[2019-07-26] MEDS ORDERED: HydrALAZINE 10mg Tab ORAL SCH (14:00)
[2019-07-26] MEDS: Docusate 100mg cap ORAL SCH ×2 (15:18→18:00)
--- NOTE | 2019-07-26 15:35 | Surgery Progress Note ---
Surgery Progress Note Subjective Procedure Performed 1. excision of scrotal lesion - aborted Additional Comments alert, awake, responsive but still confused overall improved since event Objective Last 24 Hour Vital Signs Date Time Temp Pulse Resp B/P (MAP) Pulse Ox O2 Delivery O2 Flow Rate FiO2 07/26/19 15:18 95 07/26/19 14:00 98/40 07/26/19 12:00 Nasal Cannula 2.0 07/26/19 12:00 97.2 89 21 141/76 (97) 94 07/26/19 12:00 91 07/26/19 08:15 103 120/60 07/26/19 08:00 Nasal Cannula 2.0 07/26/19 08:00 98 07/26/19 08:00 97.2 103 20 120/60 (80) 97 07/26/19 05:08 140/92 07/26/19 05:08 140/92 07/26/19 04:00 96.4 94 16 140/92 (108) 99 07/26/19 04:00 2.0 07/26/19 04:00 Nasal Cannula 2.0 07/26/19 03:30 101 07/26/19 00:00 Nasal Cannula 2.0 07/26/19 00:00 97.3 85 16 130/64 (86) 97 07/26/19 00:00 Nasal Cannula 2.0 07/26/19 00:00 2.0 07/25/19 23:36 90 07/25/19 22:00 102/55 07/25/19 20:46 104 141/74 07/25/19 20:00 Nasal Cannula 2.0 07/25/19 20:00 97.3 103 16 110/70 (83) 95 07/25/19 20:00 104 07/25/19 19:38 97 Room Air 21 07/25/19 19:38 101 22 97 Room Air 21 07/25/19 16:00 Nasal Cannula 2.0 07/25/19 16:00 108 I&O Intake and Output 07/25/19 07/26/19 19:00 07:00 Intake Total 400 ml Balance 400 ml Intake Oral 400 ml # Bowel Movements 3 2 Dressing: saturated Wound: clean Cardiovascular: RSR Respiratory: clear Abdomen: soft, non-tender, present bowel sounds Extremities: no cyanosis, other Laboratory Tests Test 07/26/19 03:50 White Blood Count 8.8 K/UL (4.8-10.8) Red Blood Count 3.19 M/UL (4.70-6.10) L Hemoglobin 11.0 G/DL (14.2-18.0) L Hematocrit 32.3 % (42.0-52.0) L Mean Corpuscular Volume 101 FL (80-99) H Mean Corpuscular Hemoglobin 34.4 PG (27.0-31.0) H Mean Corpuscular Hemoglobin Concent 34.1 G/DL (32.0-36.0) Red Cell Distribution Width 12.6 % (11.6-14.8) Platelet Count 88 K/UL (150-450) L Mean Platelet Volume 10.4 FL (6.5-10.1) H Neutrophils (%) (Auto) % (45.0-75.0) Lymphocytes (%) (Auto) % (20.0-45.0) Monocytes (%) (Auto) % (1.0-10.0) Eosinophils (%) (Auto) % (0.0-3.0) Basophils (%) (Auto) % (0.0-2.0) Sodium Level 143 MMOL/L (136-145) Potassium Level 4.4 MMOL/L (3.5-5.1) Chloride Level 100 MMOL/L (98-107) Carbon Dioxide Level 34 MMOL/L (21-32) H Anion Gap 9 mmol/L (5-15) Blood Urea Nitrogen 60 mg/dL (7-18) H Creatinine 10.9 MG/DL (0.55-1.30) H Estimat Glomerular Filtration Rate 6.1 mL/min (>60) Glucose Level 124 MG/DL (74-106) H Calcium Level 9.2 MG/DL (8.5-10.1) Phosphorus Level 6.5 MG/DL (2.5-4.9) H Magnesium Level 2.1 MG/DL (1.8-2.4) Total Bilirubin 0.7 MG/DL (0.2-1.0) Aspartate Amino Transf (AST/SGOT) 15 U/L (15-37) Alanine Aminotransferase (ALT/SGPT) 8 U/L (12-78) L Alkaline Phosphatase 88 U/L (46-116) C-Reactive Protein, Quantitative 9.5 mg/dL (0.00-0.90) H Pro-B-Type Natriuretic Peptide 9686 pg/mL (0-125) H Total Protein 7.7 G/DL (6.4-8.2) Albumin 2.7 G/DL (3.4-5.0) L Globulin 5.0 g/dL Albumin/Globulin Ratio 0.5 (1.0-2.7) L Digoxin Level 0.8 NG/ML (0.5-2.0) Plan Problems: (1) Scrotal lesion Assessment & Plan: Continue with 3 times daily dressings okay for bacitracin and Xeroform gauze (2) Cardiac arrest Assessment & Plan: Etiology unknown pending echo appreciate cardiology input Continue current care extubated abg okelis diet monitoring d/c planning thank you Thank you will follow with recommendations Zenon Galloway Jul 26, 2019 15:35
[2019-07-26 16:00] VITALS: BP 109/56
--- NOTE | 2019-07-26 16:39 | Internal Med Progress Note ---
Subjective Date of Service: Jul 26, 2019 Physician Name Michael Perez Attending Physician Zuhair Singleton MD Current Medications Medications (Trade) Dose Ordered Sig/David Route PRN Reason Start Time Stop Time Status Last Admin Dose Admin Acetaminophen (Tylenol) 650 mg Q4H PRN ORAL Fever 07/20/19 02:00 08/15/19 13:59 Acetaminophen (Tylenol) 650 mg Q4H PRN RECTAL FEVER 07/20/19 01:45 08/15/19 13:44 Albuterol/ Ipratropium (Albuterol/ Ipratropium) 3 ml Q4H PRN HHN Shortness of Breath 07/25/19 12:30 07/30/19 12:29 Bacitracin (Bacitracin 15gm tube) 1 applic THREE TIMES A DAY TOPIC 07/22/19 09:00 08/21/19 08:59 07/26/19 15:19 Carvedilol (Coreg) 25 mg EVERY 12 HOURS ORAL 07/24/19 21:00 08/17/19 09:59 07/26/19 08:15 Dextrose (Dextrose 50%) 25 ml Q30M PRN IV Hypoglycemia 07/20/19 01:30 08/15/19 13:59 Dextrose (Dextrose 50%) 50 ml Q30M PRN IV Hypoglycemia 07/20/19 01:30 08/15/19 13:59 Digoxin (Lanoxin) 0.25 mg ONCE ORAL 07/26/19 15:05 07/26/19 17:30 07/26/19 15:18 Docusate Sodium (Colace) 100 mg THREE TIMES A DAY ORAL 07/26/19 13:00 08/25/19 12:59 07/26/19 15:18 Heparin Sodium (Porcine) (Heparin 5000 units/ml) 5,000 units EVERY 8 HOURS SUBQ 07/20/19 06:00 08/15/19 13:59 Hydralazine HCl (Apresoline) 10 mg Q4H PRN IV bp over 160 syst 07/22/19 12:00 08/15/19 11:59 Hydralazine HCl (Apresoline) 20 mg Q8HR ORAL 07/26/19 14:00 08/18/19 18:29 Metoclopramide HCl (Reglan) 5 mg EVERY 6 HOURS ORAL 07/24/19 18:00 08/21/19 11:59 07/26/19 11:06 Metoclopramide HCl (Reglan) 10 mg Q8H PRN IVP Nausea & Vomiting 07/21/19 12:45 08/20/19 12:44 07/23/19 04:10 Nitroglycerin (Ntg) 1 patch Q24H TDERMAL 07/20/19 06:00 08/19/19 05:59 07/26/19 05:08 Pantoprazole (Protonix) 40 mg BID ORAL 07/26/19 18:00 08/25/19 08:59 Sennosides (Senokot) 8.6 mg BIDPRN PRN ORAL Constipation 07/20/19 13:45 08/15/19 13:44 Sevelamer Carbonate (Renvela) 2,400 mg Q6HR ORAL 07/26/19 12:00 08/22/19 12:59 07/26/19 11:06 Allergies: Coded Allergies: LISINOPRIL (Verified Allergy, Severe, Shortness of Breath, 07/02/19) THROAT SWELLS UP PENICILLINS (Verified Allergy, Severe, throat swelling, 07/17/19) tolerated Ancef x1 07/16/19 Uncoded Allergies: shellfish (Allergy, Severe, 02/06/19) shortness of breath, vomiting, throat swelling ROS Limited/Unobtainable: No Constitutional: Reports: no symptoms HEENT: Reports: no symptoms Cardiovascular: Reports: no symptoms Respiratory: Reports: no symptoms Gastrointestinal/Abdominal: Reports: no symptoms Genitourinary: Reports: no symptoms Neurologic/Psychiatric: Reports: no symptoms Subjective 49 YO M admitted for scrotal fistulotomy. S/P cardiac arrest. Self extubated . Cover for Int tim-Dr Singleton. PATRICK. Less confused; more alert Objective Last Vital Signs Date Time Temp Pulse Resp B/P (MAP) Pulse Ox O2 Delivery O2 Flow Rate FiO2 07/26/19 15:18 95 07/26/19 14:00 98/40 07/26/19 12:00 Nasal Cannula 2.0 07/26/19 12:00 97.2 21 94 07/25/19 19:38 21 Laboratory Tests Test 07/26/19 03:50 White Blood Count 8.8 K/UL (4.8-10.8) Red Blood Count 3.19 M/UL (4.70-6.10) L Hemoglobin 11.0 G/DL (14.2-18.0) L Hematocrit 32.3 % (42.0-52.0) L Mean Corpuscular Volume 101 FL (80-99) H Mean Corpuscular Hemoglobin 34.4 PG (27.0-31.0) H Mean Corpuscular Hemoglobin Concent 34.1 G/DL (32.0-36.0) Red Cell Distribution Width 12.6 % (11.6-14.8) Platelet Count 88 K/UL (150-450) L Mean Platelet Volume 10.4 FL (6.5-10.1) H Neutrophils (%) (Auto) % (45.0-75.0) Lymphocytes (%) (Auto) % (20.0-45.0) Monocytes (%) (Auto) % (1.0-10.0) Eosinophils (%) (Auto) % (0.0-3.0) Basophils (%) (Auto) % (0.0-2.0) Sodium Level 143 MMOL/L (136-145) Potassium Level 4.4 MMOL/L (3.5-5.1) Chloride Level 100 MMOL/L (98-107) Carbon Dioxide Level 34 MMOL/L (21-32) H Anion Gap 9 mmol/L (5-15) Blood Urea Nitrogen 60 mg/dL (7-18) H Creatinine 10.9 MG/DL (0.55-1.30) H Estimat Glomerular Filtration Rate 6.1 mL/min (>60) Glucose Level 124 MG/DL (74-106) H Calcium Level 9.2 MG/DL (8.5-10.1) Phosphorus Level 6.5 MG/DL (2.5-4.9) H Magnesium Level 2.1 MG/DL (1.8-2.4) Total Bilirubin 0.7 MG/DL (0.2-1.0) Aspartate Amino Transf (AST/SGOT) 15 U/L (15-37) Alanine Aminotransferase (ALT/SGPT) 8 U/L (12-78) L Alkaline Phosphatase 88 U/L (46-116) C-Reactive Protein, Quantitative 9.5 mg/dL (0.00-0.90) H Pro-B-Type Natriuretic Peptide 9686 pg/mL (0-125) H Total Protein 7.7 G/DL (6.4-8.2) Albumin 2.7 G/DL (3.4-5.0) L Globulin 5.0 g/dL Albumin/Globulin Ratio 0.5 (1.0-2.7) L Digoxin Level 0.8 NG/ML (0.5-2.0) Intake and Output 07/25/19 07/26/19 19:00 07:00 Intake Total 400 ml Balance 400 ml Intake Oral 400 ml # Bowel Movements 3 2 Objective PHYSICAL EXAMINATION: GENERAL: The patient is well-developed well-nourished male, intubated and sedated in the intensive care unit. CHEST: nasal canula; Diffuse coarse breath sounds bilaterally without wheezes CARDIOVASCULAR: Regular rhythm and rate. S1, S2 are normal without murmurs, rubs, or gallops. ABDOMEN: Soft, nontender, nondistended. Positive bowel sounds. No evidence of hepatosplenomegaly. Currently, no rebound or guarding noted. EXTREMITIES: Negative for clubbing, cyanosis, edema. NEUROLOGIC: Unable to assess. Assessment/Plan Assessment/Plan ASSESSMENT: This is a 49-year-old male. 1. Scrotal fistula. 2. Status post cardiac arrest. 3. Renal failure. 4. Hypertension. 5. Gout. 6. End stage renal disease on hemodialysis. 7. Cardiomyopathy 8. Systolic CHF 9. dysphagia TREATMENT: 1. Scrotal fistula. Surgery was aborted on 07/16/2019. Follow recommendations of Surgery, Dr. Galloway. 2. Status post cardiac arrest. The patient is S/P self-extubation 07/18/19. A Cardiology consultation has been obtained with Dr. Emmanuel Cortés. Follow recommendations of Cardiology. 3. End stage renal disease. A Nephrology consultation has been obtained with Dr. Daniel Delgadillo. Hemodialysis 07/22/19. Follow recommendations of Nephrology. 4. Hypertension. 5. Gout. 6. PATRICK status 7. Failed swallow eval-patient pulled out NGT. GI=Dr Delarosa 8. Calorie count in progress Michael Perez MD Jul 26, 2019 16:39
[2019-07-26] MEDS ORDERED: Metoclopramide 10mg/2ml Inj IVP PRN (19:15)
[2019-07-26] MEDS ORDERED: Acetaminophen 650 MG SUPP RECTAL PRN (19:15)
[2019-07-26] MEDS ORDERED: Albuterol/Ipratropium 3ml neb HHN PRN (19:15)
--- NOTE | 2019-07-26 19:31 | Cardiology Progress Note ---
Assessment/Plan Assessment/Plan 1. Status cardiac arrest, asystolic in origin. 2. Reported history of dilated cardiomyopathy that had improved in October 2018. 3. Hypertension, poorly controlled. 4. Hyperlipidemia. 5. End-stage renal disease, on hemodialysis. 6. History of systolic heart failure previously. 7. Lisinopril and penicillin allergy. 8. Diabetes mellitus. 9. Secondary hyperparathyroidism. 10. History of asthma. 11. Anemia, secondary to end-stage renal disease. 12. post arrest evidence for cardiomyopathy minro trop abn with out a peak or lorri to suggest acs an in della settign of renal failure is not specific tele personally reviewed labs noted bp increased cannot take acei due to allergy s/p dialysis overall better keep supportive care dvt ppx heparin rn reported on initial admission to icu pt with food vomit post arrest , aspiration may be a possibility ? Isordil and hydralazine for cm will need repeat echo , not yet redone will reorder Subjective Cardiovascular: Denies: chest pain Respiratory: Denies: shortness of breath Gastrointestinal/Abdominal: Denies: abdominal pain Genitourinary: Denies: burning Objective Last 24 Hour Vital Signs Date Time Temp Pulse Resp B/P (MAP) Pulse Ox O2 Delivery O2 Flow Rate FiO2 07/26/19 16:00 97 07/26/19 16:00 97.5 98 20 109/56 (73) 94 07/26/19 16:00 Nasal Cannula 2.0 07/26/19 15:18 95 07/26/19 14:00 98/40 07/26/19 12:00 Nasal Cannula 2.0 07/26/19 12:00 97.2 89 21 141/76 (97) 94 07/26/19 12:00 91 07/26/19 08:15 103 120/60 07/26/19 08:00 Nasal Cannula 2.0 07/26/19 08:00 98 07/26/19 08:00 97.2 103 20 120/60 (80) 97 07/26/19 05:08 140/92 07/26/19 05:08 140/92 07/26/19 04:00 96.4 94 16 140/92 (108) 99 07/26/19 04:00 2.0 07/26/19 04:00 Nasal Cannula 2.0 07/26/19 03:30 101 07/26/19 00:00 Nasal Cannula 2.0 07/26/19 00:00 97.3 85 16 130/64 (86) 97 07/26/19 00:00 Nasal Cannula 2.0 07/26/19 00:00 2.0 07/25/19 23:36 90 07/25/19 22:00 102/55 07/25/19 20:46 104 141/74 07/25/19 20:00 Nasal Cannula 2.0 07/25/19 20:00 97.3 103 16 110/70 (83) 95 07/25/19 20:00 104 07/25/19 19:38 97 Room Air 21 07/25/19 19:38 101 22 97 Room Air 21 General Appearance: no apparent distress, alert Cardiovascular: normal rate Respiratory/Chest: rhonchi - bilaterally Abdomen: normal bowel sounds, non tender, soft Extremities: no swelling Intake and Output 07/25/19 07/26/19 19:00 07:00 Intake Total 400 ml Balance 400 ml Intake Oral 400 ml # Bowel Movements 3 2 Laboratory Tests Test 07/26/19 03:50 White Blood Count 8.8 K/UL (4.8-10.8) Red Blood Count 3.19 M/UL (4.70-6.10) L Hemoglobin 11.0 G/DL (14.2-18.0) L Hematocrit 32.3 % (42.0-52.0) L Mean Corpuscular Volume 101 FL (80-99) H Mean Corpuscular Hemoglobin 34.4 PG (27.0-31.0) H Mean Corpuscular Hemoglobin Concent 34.1 G/DL (32.0-36.0) Red Cell Distribution Width 12.6 % (11.6-14.8) Platelet Count 88 K/UL (150-450) L Mean Platelet Volume 10.4 FL (6.5-10.1) H Neutrophils (%) (Auto) % (45.0-75.0) Lymphocytes (%) (Auto) % (20.0-45.0) Monocytes (%) (Auto) % (1.0-10.0) Eosinophils (%) (Auto) % (0.0-3.0) Basophils (%) (Auto) % (0.0-2.0) Sodium Level 143 MMOL/L (136-145) Potassium Level 4.4 MMOL/L (3.5-5.1) Chloride Level 100 MMOL/L (98-107) Carbon Dioxide Level 34 MMOL/L (21-32) H Anion Gap 9 mmol/L (5-15) Blood Urea Nitrogen 60 mg/dL (7-18) H Creatinine 10.9 MG/DL (0.55-1.30) H Estimat Glomerular Filtration Rate 6.1 mL/min (>60) Glucose Level 124 MG/DL (74-106) H Calcium Level 9.2 MG/DL (8.5-10.1) Phosphorus Level 6.5 MG/DL (2.5-4.9) H Magnesium Level 2.1 MG/DL (1.8-2.4) Total Bilirubin 0.7 MG/DL (0.2-1.0) Aspartate Amino Transf (AST/SGOT) 15 U/L (15-37) Alanine Aminotransferase (ALT/SGPT) 8 U/L (12-78) L Alkaline Phosphatase 88 U/L (46-116) C-Reactive Protein, Quantitative 9.5 mg/dL (0.00-0.90) H Pro-B-Type Natriuretic Peptide 9686 pg/mL (0-125) H Total Protein 7.7 G/DL (6.4-8.2) Albumin 2.7 G/DL (3.4-5.0) L Globulin 5.0 g/dL Albumin/Globulin Ratio 0.5 (1.0-2.7) L Digoxin Level 0.8 NG/ML (0.5-2.0) Emmanuel Cortés MD Jul 26, 2019 19:31
--- NOTE | 2019-07-26 19:43 | NUR ---
HAND-OFF: Report given to JOCE Hummel patient transffered to [id number], medication placed in patient bin, .
[2019-07-26 20:00] VITALS: BP 115/65
--- NOTE | 2019-07-26 20:00 | NUR ---
NURSE NOTES: RECEIVED PATIENT LYING IN BED, AWAKE, ALERT/ORIENTED TO PERSON ONLY, REALITY ORIENTATION PROVIDED DURING ASSESSMENT AND PRN. SPEECH DELAYED, GARBLED, ALL NEEDS ANTICIPATED AND MET BY NURSING STAFF. NO SIGNS AND SYMPTOMS OF ACUTE CARDIO RESPIRATORY DISTRESS/SHORTNESS OF BREATH, NO PERIPHERAL EDEMA NOTED. ABDOMEN SOFT/NON DISTENDED/NON TENDER, AUDIBLE BOWEL SOUNDS. DRESSING DRY AND INTACT TO RIGHT GROIN. SIDE RAILS UP X3/BED IN LOWEST POSITION FOR SAFETY, FREQUENT ROUNDING FOR SAFETY/NEEDS. NAD.
--- NOTE | 2019-07-26 22:00 | NUR ---
NURSE NOTES: ATTEMPTING TO CLIMB OUT OF BED; MOVED PATIENT CLOSER TO NURSES STATION FOR SAFETY, MONITORED BY STAFF. NAD.
[2019-07-27] VITALS: BP 125/64
[2019-07-27] MEDS ORDERED: LORazepam Inj 2mg/ml 1ml IV PRN (00:30)
[2019-07-27] MEDS: Metoclopramide 10mg/10ml Liq ORAL SCH ×5 (00:52→23:55)
[2019-07-27] MEDS: Renvela 800mg Pkt ORAL SCH ×5 (00:52→23:55)
[2019-07-27 04:00] VITALS: BP 138/73
[2019-07-27] MEDS: Heparin 5000 units/ml inj SUBQ SCH ×3 (06:00→22:00)
[2019-07-27] MEDS: HydrALAZINE 10mg Tab ORAL SCH ×3 (06:16→22:08)
[2019-07-27] MEDS: Nitroglycerin Patch 0.4mg TDERMAL SCH (06:17)
[2019-07-27 06:34] LABS: HEMATOCRIT 31.9 % (42.0-52.0); HEMOGLOBIN 10.5 G/DL (14.2-18.0); MEAN CORPUSCULAR VOLUME 104 FL (80-99); PLATELET COUNT 80 K/UL (150-450); RED BLOOD COUNT 3.06 M/UL (4.70-6.10); RED CELL DISTRIBUTION WIDTH 13.1 % (11.6-14.8); WHITE BLOOD COUNT 6.2 K/UL (4.8-10.8)
--- NOTE | 2019-07-27 07:06 | NUR ---
NURSE NOTES: WOUND CARE TO RIGHT GROIN, TOLERATED WELL. NAD.
[2019-07-27 07:18] LABS: ALANINE AMINOTRANSFERASE 6 U/L (12-78); ALBUMIN/GLOBULIN RATIO 0.6 (1.0-2.7); ALKALINE PHOSPHATASE 80 U/L (46-116); ANION GAP 8 mmol/L (5-15); ASPARTATE AMINO TRANSFERASE 15 U/L (15-37); BILIRUBIN,TOTAL 0.7 MG/DL (0.2-1.0); BLOOD UREA NITROGEN 44 mg/dL (7-18); CALCIUM 9.5 MG/DL (8.5-10.1); CARBON DIOXIDE 36 MMOL/L (21-32); CHLORIDE 101 MMOL/L (98-107); CREATININE 8.3 MG/DL (0.55-1.30); PHOSPHORUS 4.7 MG/DL (2.5-4.9); POTASSIUM 4.2 MMOL/L (3.5-5.1); SODIUM 144 MMOL/L (136-145)
--- NOTE | 2019-07-27 07:30 | NUR ---
NURSE NOTES: Received report from JOCE Dumont. Patient is A/O x1. No complain of pain, no s/sx of acute distress. Pt is breathing even and unlabored in RA. bed on lowest position, call light within reach. Will continue plan of care.
[2019-07-27 08:00] VITALS: BP 116/69
[2019-07-27] MEDS: Carvedilol 25mg Tab ORAL SCH ×2 (09:00→22:08)
[2019-07-27] MEDS: Docusate 100mg cap ORAL SCH ×3 (09:46→17:49)
[2019-07-27] MEDS: Bacitracin Oint 15gm Tube TOPIC SCH ×3 (10:02→17:49)
--- NOTE | 2019-07-27 10:30 | General Progress Note ---
Assessment/Plan Status: stable, progressing Assessment/Plan: Assessment/Plan Problems: (1) Scrotal lesion ICD Codes: N50.9 - Disorder of male genital organs, unspecified SNOMED: 54878661 (2) Cardiac arrest ICD Codes: I46.9 - Cardiac arrest, cause unspecified SNOMED: 805473766 (3) Anemia ICD Codes: D64.9 - Anemia, unspecified SNOMED: 257737597 (4) Constipation ICD Codes: K59.00 - Constipation, unspecified (5) N/V, TF intolerance Assessment/Plan follow up cardiology recs prn transfusions ppi eating much better will hold NGT or GT feeding plans for now Subjective ROS Limited/Unobtainable: No Allergies: Coded Allergies: LISINOPRIL (Verified Allergy, Severe, Shortness of Breath, 07/02/19) THROAT SWELLS UP PENICILLINS (Verified Allergy, Severe, throat swelling, 07/17/19) tolerated Ancef x1 07/16/19 Uncoded Allergies: shellfish (Allergy, Severe, 02/06/19) shortness of breath, vomiting, throat swelling Objective Last 24 Hour Vital Signs Date Time Temp Pulse Resp B/P (MAP) Pulse Ox O2 Delivery O2 Flow Rate FiO2 07/27/19 09:00 Room Air 07/27/19 09:00 92 116/69 07/27/19 08:05 92 20 96 Room Air 21 07/27/19 08:05 96 Room Air 21 07/27/19 08:00 97.9 94 18 116/69 (85) 94 07/27/19 06:17 140/75 07/27/19 06:16 140/75 07/27/19 04:00 95 07/27/19 04:00 98.2 93 18 138/73 (94) 93 07/27/19 00:00 97.5 96 18 125/64 (84) 94 07/27/19 00:00 89 07/26/19 23:24 124/61 07/26/19 20:58 96 144/99 07/26/19 20:04 98 22 97 Room Air 21 07/26/19 20:04 97 Room Air 21 07/26/19 20:00 97 07/26/19 20:00 97.1 95 20 115/65 (82) 94 07/26/19 20:00 Nasal Cannula 2.0 07/26/19 16:00 97 07/26/19 16:00 97.5 98 20 109/56 (73) 94 07/26/19 16:00 Nasal Cannula 2.0 07/26/19 15:18 95 07/26/19 14:00 98/40 07/26/19 12:00 Nasal Cannula 2.0 07/26/19 12:00 97.2 89 21 141/76 (97) 94 07/26/19 12:00 91 Intake and Output 07/26/19 07/27/19 19:00 07:00 Intake Total 0 ml 480 ml Balance 0 ml 480 ml Intake Oral 480 ml Hemodialysis 0 ml Laboratory Tests 07/27/19 05:20: White Blood Count 6.2, Red Blood Count 3.06L, Hemoglobin 10.5L, Hematocrit 31.9L , Mean Corpuscular Volume 104H, Mean Corpuscular Hemoglobin 34.3H, Mean Corpuscular Hemoglobin Concent 33.0, Red Cell Distribution Width 13.1, Platelet Count 80L, Mean Platelet Volume 10.9H, Neutrophils (%) (Auto) , Lymphocytes (%) (Auto) , Monocytes (%) (Auto) , Eosinophils (%) (Auto) , Basophils (%) (Auto) , Differential Total Cells Counted 100, Neutrophils % (Manual) 71, Lymphocytes % ( Manual) 14L, Monocytes % (Manual) 8, Eosinophils % (Manual) 7H, Basophils % ( Manual) 0, Band Neutrophils 0, Platelet Estimate DecreasedL, Platelet Morphology Normal, Macrocytosis 1+, Sodium Level 144, Potassium Level 4.2, Chloride Level 101, Carbon Dioxide Level 36H, Anion Gap 8, Blood Urea Nitrogen 44H, Creatinine 8.3H, Estimat Glomerular Filtration Rate 8.4, Glucose Level 92, Uric Acid 4.0, Calcium Level 9.5, Phosphorus Level 4.7, Magnesium Level 2.2, Total Bilirubin 0.7, Aspartate Amino Transf (AST/SGOT) 15, Alanine Aminotransferase (ALT/SGPT) 6L, Alkaline Phosphatase 80, C-Reactive Protein, Quantitative 8.7H, Pro-B-Type Natriuretic Peptide 8161H, Total Protein 7.9, Albumin 3.0L, Globulin 4.9, Albumin/Globulin Ratio 0.6L, Digoxin Level 1.5 Height (Feet): 5 Height (Inches): 5.50 Weight (Pounds): 160 General Appearance: lethargic EENT: normal ENT inspection Neck: normal alignment Cardiovascular: normal rate Respiratory/Chest: lungs clear Abdomen: normal bowel sounds, non tender, soft Extremities: non-tender Richy Delarosa MD Jul 27, 2019 10:30
--- NOTE | 2019-07-27 10:39 | NUR ---
CASE MANAGEMENT:REVIEW 07/27/19 SI: CARDIAC ARREST. ACUTE RESP FAILURE 97.9 94 18 116/69 94% ON RA H/H-10.5/31.9 PLT-80 BUN+44 CR+8.3 IS: PROTONIX PO BID NTG 1 PATCH Q24 REGLAN PO Q6HRS HEPARIN SQ Q8HRS HYDRALAZINE PO Q8HRS COREG PO Q12 : NOW ON TELEMETRY
[2019-07-27] MEDS ORDERED: Tubing IV Secondary IV ONE (10:54)
--- NOTE | 2019-07-27 11:06 | Surgery Progress Note ---
Surgery Progress Note Subjective Procedure Performed 1. excision of scrotal lesion - aborted Additional Comments downgraded improving able to talk and respond today but still attempts to remove tele monitors and get out of bed Objective Last 24 Hour Vital Signs Date Time Temp Pulse Resp B/P (MAP) Pulse Ox O2 Delivery O2 Flow Rate FiO2 07/27/19 09:00 Room Air 07/27/19 09:00 92 116/69 07/27/19 08:05 92 20 96 Room Air 21 07/27/19 08:05 96 Room Air 21 07/27/19 08:00 97.9 94 18 116/69 (85) 94 07/27/19 06:17 140/75 07/27/19 06:16 140/75 07/27/19 04:00 95 07/27/19 04:00 98.2 93 18 138/73 (94) 93 07/27/19 00:00 97.5 96 18 125/64 (84) 94 07/27/19 00:00 89 07/26/19 23:24 124/61 07/26/19 20:58 96 144/99 07/26/19 20:04 98 22 97 Room Air 21 07/26/19 20:04 97 Room Air 21 07/26/19 20:00 97 07/26/19 20:00 97.1 95 20 115/65 (82) 94 07/26/19 20:00 Nasal Cannula 2.0 07/26/19 16:00 97 07/26/19 16:00 97.5 98 20 109/56 (73) 94 07/26/19 16:00 Nasal Cannula 2.0 07/26/19 15:18 95 07/26/19 14:00 98/40 07/26/19 12:00 Nasal Cannula 2.0 07/26/19 12:00 97.2 89 21 141/76 (97) 94 07/26/19 12:00 91 I&O Intake and Output 07/26/19 07/27/19 19:00 07:00 Intake Total 0 ml 480 ml Balance 0 ml 480 ml Intake Oral 480 ml Hemodialysis 0 ml Dressing: saturated Wound: clean Cardiovascular: RSR Respiratory: clear Abdomen: soft, non-tender, present bowel sounds Extremities: no edema, no tenderness, no cyanosis Laboratory Tests Test 07/27/19 05:20 White Blood Count 6.2 K/UL (4.8-10.8) Red Blood Count 3.06 M/UL (4.70-6.10) L Hemoglobin 10.5 G/DL (14.2-18.0) L Hematocrit 31.9 % (42.0-52.0) L Mean Corpuscular Volume 104 FL (80-99) H Mean Corpuscular Hemoglobin 34.3 PG (27.0-31.0) H Mean Corpuscular Hemoglobin Concent 33.0 G/DL (32.0-36.0) Red Cell Distribution Width 13.1 % (11.6-14.8) Platelet Count 80 K/UL (150-450) L Mean Platelet Volume 10.9 FL (6.5-10.1) H Neutrophils (%) (Auto) % (45.0-75.0) Lymphocytes (%) (Auto) % (20.0-45.0) Monocytes (%) (Auto) % (1.0-10.0) Eosinophils (%) (Auto) % (0.0-3.0) Basophils (%) (Auto) % (0.0-2.0) Differential Total Cells Counted 100 Neutrophils % (Manual) 71 % (45-75) Lymphocytes % (Manual) 14 % (20-45) L Monocytes % (Manual) 8 % (1-10) Eosinophils % (Manual) 7 % (0-3) H Basophils % (Manual) 0 % (0-2) Band Neutrophils 0 % (0-8) Platelet Estimate Decreased L Platelet Morphology Normal Macrocytosis 1+ Sodium Level 144 MMOL/L (136-145) Potassium Level 4.2 MMOL/L (3.5-5.1) Chloride Level 101 MMOL/L (98-107) Carbon Dioxide Level 36 MMOL/L (21-32) H Anion Gap 8 mmol/L (5-15) Blood Urea Nitrogen 44 mg/dL (7-18) H Creatinine 8.3 MG/DL (0.55-1.30) H Estimat Glomerular Filtration Rate 8.4 mL/min (>60) Glucose Level 92 MG/DL (74-106) Uric Acid 4.0 MG/DL (2.6-7.2) Calcium Level 9.5 MG/DL (8.5-10.1) Phosphorus Level 4.7 MG/DL (2.5-4.9) Magnesium Level 2.2 MG/DL (1.8-2.4) Total Bilirubin 0.7 MG/DL (0.2-1.0) Aspartate Amino Transf (AST/SGOT) 15 U/L (15-37) Alanine Aminotransferase (ALT/SGPT) 6 U/L (12-78) L Alkaline Phosphatase 80 U/L (46-116) C-Reactive Protein, Quantitative 8.7 mg/dL (0.00-0.90) H Pro-B-Type Natriuretic Peptide 8161 pg/mL (0-125) H Total Protein 7.9 G/DL (6.4-8.2) Albumin 3.0 G/DL (3.4-5.0) L Globulin 4.9 g/dL Albumin/Globulin Ratio 0.6 (1.0-2.7) L Digoxin Level 1.5 NG/ML (0.5-2.0) Plan Problems: (1) Scrotal lesion Assessment & Plan: Continue with 3 times daily dressings okay for bacitracin and Xeroform gauze (2) Cardiac arrest Assessment & Plan: Etiology unknown pending echo appreciate cardiology input Continue current care extubated abg okay diet monitoring d/c planning thank you Thank you will follow with recommendations Zenon Galloway Jul 27, 2019 11:06
--- NOTE | 2019-07-27 11:45 | NUR ---
PT EVALUATION NOTE Patient seen for initial evaluation. Patient presents with generalized weakness, impaired balance and impaired coordination which affects patient's ability to perform mobility tasks safely. Patient follows some simple commands inconsistently. Patient requires min assist for bed mobility and transfers with FWW. Patient unsteady in standing, able to take 2 sideways steps with assist and FWW. Patient with difficulty taking steps due to impaired coordination and balance, and weakness. Patient will benefit from skilled inpatient PT intervention to address strength, balance, coordination and safety to improve level of independence with functional mobility. Recommend ARU for further rehab once medically cleared by MD. DME needs to be determined based on patient's progress. Addendum: 07/27/19 at 1314 by CARLTON CABRERA PT Amended: Links added.
--- NOTE | 2019-07-27 11:47 | Nephrology Progress Note ---
Assessment/Plan Problem List: (1) ESRD (end stage renal disease) (2) Acute respiratory failure (3) Cardiac arrest (4) Diabetes mellitus (5) Cardiomyopathy Assessment interoperative cardiac arrest Cardiomyopathy and Low ejfx ESRD- high K BP low at this time s/p Asystole in OR Plan dialysis - next 07/26 add Phos binder and adjust dose Digoxin adjust BP meds self extubated 07/[address] eval PRN BP meds adjust bp meds dose HD next 07/28 2D echo noted per orders Subjective ROS Limited/Unobtainable: No Constitutional: Reports: malaise, weakness Objective Objective Last 24 Hour Vital Signs Date Time Temp Pulse Resp B/P (MAP) Pulse Ox O2 Delivery O2 Flow Rate FiO2 07/27/19 09:00 Room Air 07/27/19 09:00 92 116/69 07/27/19 08:05 92 20 96 Room Air 21 07/27/19 08:05 96 Room Air 21 07/27/19 08:00 97.9 94 18 116/69 (85) 94 07/27/19 07:36 95 07/27/19 06:17 140/75 07/27/19 06:16 140/75 07/27/19 04:00 95 07/27/19 04:00 98.2 93 18 138/73 (94) 93 07/27/19 00:00 97.5 96 18 125/64 (84) 94 07/27/19 00:00 89 07/26/19 23:24 124/61 07/26/19 20:58 96 144/99 07/26/19 20:04 98 22 97 Room Air 21 07/26/19 20:04 97 Room Air 21 07/26/19 20:00 97 07/26/19 20:00 97.1 95 20 115/65 (82) 94 07/26/19 20:00 Nasal Cannula 2.0 07/26/19 16:00 97 07/26/19 16:00 97.5 98 20 109/56 (73) 94 07/26/19 16:00 Nasal Cannula 2.0 07/26/19 15:18 95 07/26/19 14:00 98/40 07/26/19 12:00 Nasal Cannula 2.0 07/26/19 12:00 97.2 89 21 141/76 (97) 94 07/26/19 12:00 91 Intake and Output 07/26/19 07/27/19 19:00 07:00 Intake Total 0 ml 480 ml Balance 0 ml 480 ml Intake Oral 480 ml Hemodialysis 0 ml Laboratory Tests 07/27/19 05:20: White Blood Count 6.2, Red Blood Count 3.06L, Hemoglobin 10.5L, Hematocrit 31.9L , Mean Corpuscular Volume 104H, Mean Corpuscular Hemoglobin 34.3H, Mean Corpuscular Hemoglobin Concent 33.0, Red Cell Distribution Width 13.1, Platelet Count 80L, Mean Platelet Volume 10.9H, Neutrophils (%) (Auto) , Lymphocytes (%) (Auto) , Monocytes (%) (Auto) , Eosinophils (%) (Auto) , Basophils (%) (Auto) , Differential Total Cells Counted 100, Neutrophils % (Manual) 71, Lymphocytes % ( Manual) 14L, Monocytes % (Manual) 8, Eosinophils % (Manual) 7H, Basophils % ( Manual) 0, Band Neutrophils 0, Platelet Estimate DecreasedL, Platelet Morphology Normal, Macrocytosis 1+, Sodium Level 144, Potassium Level 4.2, Chloride Level 101, Carbon Dioxide Level 36H, Anion Gap 8, Blood Urea Nitrogen 44H, Creatinine 8.3H, Estimat Glomerular Filtration Rate 8.4, Glucose Level 92, Uric Acid 4.0, Calcium Level 9.5, Phosphorus Level 4.7, Magnesium Level 2.2, Total Bilirubin 0.7, Aspartate Amino Transf (AST/SGOT) 15, Alanine Aminotransferase (ALT/SGPT) 6L, Alkaline Phosphatase 80, C-Reactive Protein, Quantitative 8.7H, Pro-B-Type Natriuretic Peptide 8161H, Total Protein 7.9, Albumin 3.0L, Globulin 4.9, Albumin/Globulin Ratio 0.6L, Digoxin Level 1.5 Height (Feet): 5 Height (Inches): 5.50 Weight (Pounds): 160 General Appearance: no apparent distress, lethargic, confused Cardiovascular: tachycardia Respiratory/Chest: decreased breath sounds Abdomen: distended Objective no change Daniel Delgadillo MD Jul 27, 2019 11:47
--- NOTE | 2019-07-27 11:49 | Pulmonology Progress Note ---
Assessment/Plan Problems: (1) Cardiac arrest (2) Acute respiratory failure (3) ESRD (end stage renal disease) (4) Diabetes mellitus (5) Cardiomyopathy (6) Hypertension Assessment/Plan pt/ot evaluation HD by nephrology monitor BP titrate cardiac meds sliding scale diabetic diet dc planning Subjective ROS Limited/Unobtainable: No Constitutional: Reports: no symptoms HEENT: Repors: no symptoms Respiratory: Reports: no symptoms Allergies: Coded Allergies: LISINOPRIL (Verified Allergy, Severe, Shortness of Breath, 07/02/19) THROAT SWELLS UP PENICILLINS (Verified Allergy, Severe, throat swelling, 07/17/19) tolerated Ancef x1 07/16/19 Uncoded Allergies: shellfish (Allergy, Severe, 02/06/19) shortness of breath, vomiting, throat swelling Objective Last 24 Hour Vital Signs Date Time Temp Pulse Resp B/P (MAP) Pulse Ox O2 Delivery O2 Flow Rate FiO2 07/27/19 09:00 Room Air 07/27/19 09:00 92 116/69 07/27/19 08:05 92 20 96 Room Air 21 07/27/19 08:05 96 Room Air 21 07/27/19 08:00 97.9 94 18 116/69 (85) 94 07/27/19 07:36 95 07/27/19 06:17 140/75 07/27/19 06:16 140/75 07/27/19 04:00 95 07/27/19 04:00 98.2 93 18 138/73 (94) 93 07/27/19 00:00 97.5 96 18 125/64 (84) 94 07/27/19 00:00 89 07/26/19 23:24 124/61 07/26/19 20:58 96 144/99 07/26/19 20:04 98 22 97 Room Air 21 07/26/19 20:04 97 Room Air 21 07/26/19 20:00 97 07/26/19 20:00 97.1 95 20 115/65 (82) 94 07/26/19 20:00 Nasal Cannula 2.0 07/26/19 16:00 97 07/26/19 16:00 97.5 98 20 109/56 (73) 94 07/26/19 16:00 Nasal Cannula 2.0 07/26/19 15:18 95 07/26/19 14:00 98/40 07/26/19 12:00 Nasal Cannula 2.0 07/26/19 12:00 97.2 89 21 141/76 (97) 94 07/26/19 12:00 91 Intake and Output 07/26/19 07/27/19 19:00 07:00 Intake Total 0 ml 480 ml Balance 0 ml 480 ml Intake Oral 480 ml Hemodialysis 0 ml General Appearance: WD/WN HEENT: normocephalic, atraumatic Respiratory/Chest: chest wall non-tender, lungs clear Cardiovascular: normal peripheral pulses, normal rate Abdomen: normal bowel sounds, soft, non tender Genitourinary: normal external genitalia Extremities: no cyanosis Skin: no rash Neurologic/Psychiatric: prison guard II-XII grossly normal Lymphatic: no neck adenopathy Laboratory Tests 07/27/19 05:20: White Blood Count 6.2, Red Blood Count 3.06L, Hemoglobin 10.5L, Hematocrit 31.9L , Mean Corpuscular Volume 104H, Mean Corpuscular Hemoglobin 34.3H, Mean Corpuscular Hemoglobin Concent 33.0, Red Cell Distribution Width 13.1, Platelet Count 80L, Mean Platelet Volume 10.9H, Neutrophils (%) (Auto) , Lymphocytes (%) (Auto) , Monocytes (%) (Auto) , Eosinophils (%) (Auto) , Basophils (%) (Auto) , Differential Total Cells Counted 100, Neutrophils % (Manual) 71, Lymphocytes % ( Manual) 14L, Monocytes % (Manual) 8, Eosinophils % (Manual) 7H, Basophils % ( Manual) 0, Band Neutrophils 0, Platelet Estimate DecreasedL, Platelet Morphology Normal, Macrocytosis 1+, Sodium Level 144, Potassium Level 4.2, Chloride Level 101, Carbon Dioxide Level 36H, Anion Gap 8, Blood Urea Nitrogen 44H, Creatinine 8.3H, Estimat Glomerular Filtration Rate 8.4, Glucose Level 92, Uric Acid 4.0, Calcium Level 9.5, Phosphorus Level 4.7, Magnesium Level 2.2, Total Bilirubin 0.7, Aspartate Amino Transf (AST/SGOT) 15, Alanine Aminotransferase (ALT/SGPT) 6L, Alkaline Phosphatase 80, C-Reactive Protein, Quantitative 8.7H, Pro-B-Type Natriuretic Peptide 8161H, Total Protein 7.9, Albumin 3.0L, Globulin 4.9, Albumin/Globulin Ratio 0.6L, Digoxin Level 1.5 Current Medications Medications (Trade) Dose Ordered Sig/David Route PRN Reason Start Time Stop Time Status Last Admin Dose Admin Acetaminophen (Tylenol) 650 mg Q4H PRN ORAL Fever 07/26/19 19:15 08/15/19 19:14 Acetaminophen (Tylenol) 650 mg Q4H PRN RECTAL FEVER 07/26/19 19:15 08/15/19 19:14 Albuterol/ Ipratropium (Albuterol/ Ipratropium) 3 ml Q4H PRN HHN Shortness of Breath 07/26/19 19:15 07/30/19 19:14 Bacitracin (Bacitracin 15gm tube) 1 applic THREE TIMES A DAY TOPIC 07/27/19 09:00 08/21/19 08:59 07/27/19 10:02 Carvedilol (Coreg) 25 mg EVERY 12 HOURS ORAL 07/26/19 21:00 08/17/19 09:59 07/26/19 20:58 Dextrose (Dextrose 50%) 25 ml Q30M PRN IV Hypoglycemia 07/26/19 19:30 08/15/19 13:59 Dextrose (Dextrose 50%) 50 ml Q30M PRN IV Hypoglycemia 07/26/19 19:30 08/15/19 13:59 Digoxin (Lanoxin) 0.125 mg ONCE ONCE ORAL 07/27/19 12:00 07/27/19 12:01 UNV Docusate Sodium (Colace) 100 mg THREE TIMES A DAY ORAL 07/27/19 09:00 08/25/19 12:59 07/27/19 09:46 Heparin Sodium (Porcine) (Heparin 5000 units/ml) 5,000 units EVERY 8 HOURS SUBQ 07/26/19 22:00 08/15/19 13:59 Hydralazine HCl (Apresoline) 10 mg Q4H PRN IV bp over 160 syst 07/26/19 19:15 08/15/19 19:14 Hydralazine HCl (Apresoline) 20 mg Q8HR ORAL 07/26/19 22:00 08/18/19 18:29 07/27/19 06:16 Lorazepam (Ativan 2mg/ml 1ml) 0.5 mg EVERY 8 HOURS PRN IV For Anxiety 07/27/19 00:30 08/03/19 00:29 Metoclopramide HCl (Reglan) 5 mg EVERY 6 HOURS ORAL 07/27/19 00:00 08/21/19 11:59 07/27/19 06:15 Metoclopramide HCl (Reglan) 10 mg Q8H PRN IVP Nausea & Vomiting 07/26/19 19:15 08/20/19 19:14 Nitroglycerin (Ntg) 1 patch Q24H TDERMAL 07/27/19 06:00 08/19/19 05:59 07/27/19 06:17 Pantoprazole (Protonix) 40 mg BID ORAL 07/27/19 09:00 08/25/19 08:59 07/27/19 09:47 Sennosides (Senokot) 8.6 mg BIDPRN PRN ORAL Constipation 07/26/19 19:15 08/25/19 19:14 Sevelamer Carbonate (Renvela) 2,400 mg Q6HR ORAL 07/27/19 00:00 08/22/19 12:59 07/27/19 06:16 Juan Carlos Soto MD Jul 27, 2019 11:49
[2019-07-27 12:00] VITALS: BP 108/65
[2019-07-27] MEDS ORDERED: Digoxin 0.125mg tab ORAL SCH (12:00)
--- NOTE | 2019-07-27 14:44 | NUR ---
RD ASSESSMENT & RECOMMENDATIONS SEE CARE ACTIVITY FOR COMPLETE ASSESSMENT DAILY ESTIMATED NEEDS: Needs based on Pulmonary, surgical wound, ESRD on HD 69.7kg 25-35 kcals/kg 5206-8662 total kcals 1.25-1.8 g protein/kg 87-125 g total protein Fluid per MD, on HD < KCAL COUNT X 48 HRS COMPLETED> Breakfast #1: 490kcal, 25g prot 50% scrambled eggs 100% Nepro Breakfast #2: 645kcal, 34g prot 100% scrambled eggs 100% toast 100% Nepro Lunch #1L 800kcal, 45g prot 100% carrots 100% bread 100% chicken 100% Nepro Lunch #2: 150kcal, 10g prot 25% chicken 25% Nepro Dinner #1: 500kcal, 20g prot 75% bread 100% Nepro RESULTS: 5 out of 6 data available. Pt w/ variable intake of meals, but some meals w/ good intake. Est avg 517kcal/27g prot per each meal and 1551kcal/ 81g prot per day (includes Nepro). Pt meets ~ 89% est daily kcal and ~93% est daily prot needs. Noted good acceptance of Nepro, which is 425kcal/19g prot per christiano. Rec to continue Nepro @ all meals while meal intake is variable. Consider appetite stimulant as well to keep appetite consistent/ to help adequate intake of meals. Monitor PO intake closely. NUTRITION DIAGNOSIS: Swallowing difficulty r/t respiratory status as evidenced by s/p cardiac arrest in OR for scrotal lesion, s/p extubation, s/p pulling out NGT, now on pureed moist, NTL w/ variable intake. CURRENT DIET:Renal, pureed moist w/ NTL + Nepro TID w/ melas PO DIET RECOMMENDATIONS: RENAL DIET (texture per [employer]ACHINE) ADDITIONAL RECOMMENDATIONS: 1) Continue NEPRO TID w/ variable po intake 2) Nonhealing scrotal wound: Add ARAM BID + nephrovite daily 3) Calibrated bed scale wt 4) Monitor lytes 5) CALLIE COUNT X 48 HRS complete 07/27: see above result
--- NOTE | 2019-07-27 15:54 | Internal Med Progress Note ---
Subjective Physician Name Zuhair Singleton Attending Physician Zuhair Singleton MD Current Medications Medications (Trade) Dose Ordered Sig/David Route PRN Reason Start Time Stop Time Status Last Admin Dose Admin Acetaminophen (Tylenol) 650 mg Q4H PRN ORAL Fever 07/26/19 19:15 08/15/19 19:14 Acetaminophen (Tylenol) 650 mg Q4H PRN RECTAL FEVER 07/26/19 19:15 08/15/19 19:14 Albuterol/ Ipratropium (Albuterol/ Ipratropium) 3 ml Q4H PRN HHN Shortness of Breath 07/26/19 19:15 07/30/19 19:14 Bacitracin (Bacitracin 15gm tube) 1 applic THREE TIMES A DAY TOPIC 07/27/19 09:00 08/21/19 08:59 07/27/19 12:58 Carvedilol (Coreg) 25 mg EVERY 12 HOURS ORAL 07/26/19 21:00 08/17/19 09:59 07/26/19 20:58 Dextrose (Dextrose 50%) 25 ml Q30M PRN IV Hypoglycemia 07/26/19 19:30 08/15/19 13:59 Dextrose (Dextrose 50%) 50 ml Q30M PRN IV Hypoglycemia 07/26/19 19:30 08/15/19 13:59 Docusate Sodium (Colace) 100 mg THREE TIMES A DAY ORAL 07/27/19 09:00 08/25/19 12:59 07/27/19 12:37 Heparin Sodium (Porcine) (Heparin 5000 units/ml) 5,000 units EVERY 8 HOURS SUBQ 07/26/19 22:00 08/15/19 13:59 Hydralazine HCl (Apresoline) 10 mg Q4H PRN IV bp over 160 syst 07/26/19 19:15 08/15/19 19:14 Hydralazine HCl (Apresoline) 20 mg Q8HR ORAL 07/26/19 22:00 08/18/19 18:29 07/27/19 06:16 Lorazepam (Ativan 2mg/ml 1ml) 0.5 mg EVERY 8 HOURS PRN IV For Anxiety 07/27/19 00:30 08/03/19 00:29 Metoclopramide HCl (Reglan) 5 mg EVERY 6 HOURS ORAL 07/27/19 00:00 08/21/19 11:59 07/27/19 12:38 Metoclopramide HCl (Reglan) 10 mg Q8H PRN IVP Nausea & Vomiting 07/26/19 19:15 08/20/19 19:14 Nitroglycerin (Ntg) 1 patch Q24H TDERMAL 07/27/19 06:00 08/19/19 05:59 07/27/19 06:17 Pantoprazole (Protonix) 40 mg BID ORAL 07/27/19 09:00 08/25/19 08:59 07/27/19 09:47 Sennosides (Senokot) 8.6 mg BIDPRN PRN ORAL Constipation 07/26/19 19:15 08/25/19 19:14 Sevelamer Carbonate (Renvela) 2,400 mg Q6HR ORAL 07/27/19 00:00 08/22/19 12:59 07/27/19 12:38 Allergies: Coded Allergies: LISINOPRIL (Verified Allergy, Severe, Shortness of Breath, 07/02/19) THROAT SWELLS UP PENICILLINS (Verified Allergy, Severe, throat swelling, 07/17/19) tolerated Ancef x1 07/16/19 Uncoded Allergies: shellfish (Allergy, Severe, 02/06/19) shortness of breath, vomiting, throat swelling Subjective In telemetry, responsive, open his eyes, squeezing hands,aphasia. Objective Last Vital Signs Date Time Temp Pulse Resp B/P (MAP) Pulse Ox O2 Delivery O2 Flow Rate FiO2 07/27/19 14:00 108/65 07/27/19 12:46 99 07/27/19 12:00 97.3 18 95 07/27/19 09:00 Room Air 07/27/19 08:05 21 07/26/19 20:00 2.0 Laboratory Tests Test 07/27/19 05:20 White Blood Count 6.2 K/UL (4.8-10.8) Red Blood Count 3.06 M/UL (4.70-6.10) L Hemoglobin 10.5 G/DL (14.2-18.0) L Hematocrit 31.9 % (42.0-52.0) L Mean Corpuscular Volume 104 FL (80-99) H Mean Corpuscular Hemoglobin 34.3 PG (27.0-31.0) H Mean Corpuscular Hemoglobin Concent 33.0 G/DL (32.0-36.0) Red Cell Distribution Width 13.1 % (11.6-14.8) Platelet Count 80 K/UL (150-450) L Mean Platelet Volume 10.9 FL (6.5-10.1) H Neutrophils (%) (Auto) % (45.0-75.0) Lymphocytes (%) (Auto) % (20.0-45.0) Monocytes (%) (Auto) % (1.0-10.0) Eosinophils (%) (Auto) % (0.0-3.0) Basophils (%) (Auto) % (0.0-2.0) Differential Total Cells Counted 100 Neutrophils % (Manual) 71 % (45-75) Lymphocytes % (Manual) 14 % (20-45) L Monocytes % (Manual) 8 % (1-10) Eosinophils % (Manual) 7 % (0-3) H Basophils % (Manual) 0 % (0-2) Band Neutrophils 0 % (0-8) Platelet Estimate Decreased L Platelet Morphology Normal Macrocytosis 1+ Sodium Level 144 MMOL/L (136-145) Potassium Level 4.2 MMOL/L (3.5-5.1) Chloride Level 101 MMOL/L (98-107) Carbon Dioxide Level 36 MMOL/L (21-32) H Anion Gap 8 mmol/L (5-15) Blood Urea Nitrogen 44 mg/dL (7-18) H Creatinine 8.3 MG/DL (0.55-1.30) H Estimat Glomerular Filtration Rate 8.4 mL/min (>60) Glucose Level 92 MG/DL (74-106) Uric Acid 4.0 MG/DL (2.6-7.2) Calcium Level 9.5 MG/DL (8.5-10.1) Phosphorus Level 4.7 MG/DL (2.5-4.9) Magnesium Level 2.2 MG/DL (1.8-2.4) Total Bilirubin 0.7 MG/DL (0.2-1.0) Aspartate Amino Transf (AST/SGOT) 15 U/L (15-37) Alanine Aminotransferase (ALT/SGPT) 6 U/L (12-78) L Alkaline Phosphatase 80 U/L (46-116) C-Reactive Protein, Quantitative 8.7 mg/dL (0.00-0.90) H Pro-B-Type Natriuretic Peptide 8161 pg/mL (0-125) H Total Protein 7.9 G/DL (6.4-8.2) Albumin 3.0 G/DL (3.4-5.0) L Globulin 4.9 g/dL Albumin/Globulin Ratio 0.6 (1.0-2.7) L Digoxin Level 1.5 NG/ML (0.5-2.0) Intake and Output 07/26/19 07/27/19 19:00 07:00 Intake Total 0 ml 480 ml Balance 0 ml 480 ml Intake Oral 480 ml Hemodialysis 0 ml Objective General: No acute distress, responsive with open his eyes, aphasia. HEENT: NCAT, sclera anicteric, PERRL, EOMI, Neck: Supple, no significant jugular venous distention, Lungs: Fair respiratory effort, decreased air in the bases, no Wheeze or Rales. Heart: Regular rate and rhythm, normal S1/S2, no murmurs Abdomen: soft, nontender, nondistended. Normoactive bowel sounds, mild obesity. Extremities: No Cyanosis , clubbing or edema. AV fistula the left upper extremity. Neuro: A&O x 2, moves all extremities spontaneously Skin: warm, no rashes or lesions Psych: Normal mood and affect Assessment/Plan Assessment/Plan 1. Status cardiac arrest, asystolic in origin. 2. Reported history of dilated cardiomyopathy that had improved in October 2018. 3. Hypertension, poorly controlled. 4. Hyperlipidemia. 5. End-stage renal disease, on hemodialysis. 6. History of systolic heart failure previously. 7. Lisinopril and penicillin allergy. 8. Diabetes mellitus. 9. Secondary hyperparathyroidism. 10. History of asthma. 11. Anemia, secondary to end-stage renal disease. 12. post arrest evidence for cardiomyopathy 13. Excision of scrotal lesion - aborted. 15. Hypoxemic brain injury. Plan: Follow-up with laboratory Continue on antibiotics: Off Hemodialysis DVT prophylaxis with heparin subcu CODE STATUS full code. Follow-up with Dr. Soto from pulmonary critical care. Follow-up with Dr. Riddle from surgery. Follow-up with Dr. Quiroz from cardiology. PT mobility, Out of bed to the chair. Zuhair Singleton MD Jul 27, 2019 15:54
[2019-07-27 16:00] VITALS: BP 122/67
--- NOTE | 2019-07-27 17:06 | NUR ---
SWALLOW STATUS: WEEKLY SUMMARY PATIENT CLEDARED FOR ST INTERVENTION BY JOCE SULLIVAN. PATIENT WAS SEEN TODAY IN CONTEXT OF NOON MEAL. HE REMAINS HIGHLY CONFUSED AND REQUIRES TOTAL ASSIST WITH MEALS. GOALS MET FOR SAFE P.O. INTAKE OF MODIFIED TEXTURE DIET, BUT GOALS NOT MET RELATIVED TO SUFFICIENT INTAKE AMOUNTS. GOAL MET FOR STAFF TRAINING/RETURN DEMONSTRATION WITH MEALTIME PROTOCOL POSTED AT BEDSIDE TO MINIMIZE RISK OF ASPIRATION. PLAN: CONTINUED ST FOLLOWUP FOR DIET TOLERANCE, VIDEO SWALLOW STUDY WHEN POSSIBLE AND ONGOING ASSESSMENT OF COGNITIVE/LINGUISTIC STATUS
--- NOTE | 2019-07-27 17:26 | NUR ---
NURSE NOTES: Called [facility] Nephrology to schedule routine dialysis (07/28), per Dr. Li's order.
--- NOTE | 2019-07-27 19:25 | Infectious Diseases Prog Note ---
Assessment/Plan Assessment/Plan Assessment: Probable aspiration PNA, sp rx -07/20 CXR: Mild pulmonary vascular congestion suspected. Bilateral pleural effusions. -07/17 CXR: Bilateral pleural effusion and mild interstitial congestion and hazy parenchymal opacity present. cardiac arrest asystole during surgical procedure -07/16 CXR: pulmonary edema Non healing scrotal wound; bx showed: ruptured epidermal inclusion cyst with associated abscess formation -07/16 sp attempted excision but procedure aborted due to cardiac arrest VDRF 07/16; extubated 07/18 Afebrile Mild leukocytosis, SP ESRD on HD via L arm AVF Dm2 HTN internal hemorrhoids Plan: -Cont to monitor off abx -07/23 SP LEvaquin #7 -07/16 SP Ancef x1 -f/u cx -Monitor CBC/CMP, temperatures -aspiration precautions -wound care per surgical team -Sx, Neprho, pulm f/u Thank you for this consultation. Will continue to follow along with you. Discussed with RN Subjective Allergies: Coded Allergies: LISINOPRIL (Verified Allergy, Severe, Shortness of Breath, 07/02/19) THROAT SWELLS UP PENICILLINS (Verified Allergy, Severe, throat swelling, 07/17/19) tolerated Ancef x1 07/16/19 Uncoded Allergies: shellfish (Allergy, Severe, 02/06/19) shortness of breath, vomiting, throat swelling Subjective afebrile no leukocytosis at RA transferred from PATRICK to telemetry Objective Vital Signs Last 24 Hour Vital Signs Date Time Temp Pulse Resp B/P (MAP) Pulse Ox O2 Delivery O2 Flow Rate FiO2 07/27/19 16:00 97.7 86 18 122/67 (85) 94 07/27/19 15:32 89 07/27/19 14:00 108/65 07/27/19 12:46 99 07/27/19 12:00 97.3 99 18 108/65 (79) 95 07/27/19 11:24 94 07/27/19 09:00 Room Air 07/27/19 09:00 92 116/69 07/27/19 08:05 92 20 96 Room Air 21 07/27/19 08:05 96 Room Air 21 07/27/19 08:00 97.9 94 18 116/69 (85) 94 07/27/19 07:36 95 07/27/19 06:17 140/75 07/27/19 06:16 140/75 07/27/19 04:00 95 07/27/19 04:00 98.2 93 18 138/73 (94) 93 07/27/19 00:00 97.5 96 18 125/64 (84) 94 07/27/19 00:00 89 07/26/19 23:24 124/61 07/26/19 20:58 96 144/99 07/26/19 20:04 98 22 97 Room Air 21 07/26/19 20:04 97 Room Air 21 07/26/19 20:00 97 07/26/19 20:00 97.1 95 20 115/65 (82) 94 07/26/19 20:00 Nasal Cannula 2.0 Height (Feet): 5 Height (Inches): 5.50 Weight (Pounds): 160 Objective General Appearance: no apparent distress Head: normocephalic EENT: ETT in place Neck: supple Respiratory: normal breath sounds, no respiratory distress, other - intubated Cardiovascular: normal rate Gastrointestinal: normal inspection, non tender, soft, normal bowel sounds, non -distended Neurologic: oriented x3, normal inspection Skin: normal inspection, normal color, no rash, warm/dry, palpation normal, well hydrated scrotal wound packed Laboratory Tests Test 07/27/19 05:20 White Blood Count 6.2 K/UL (4.8-10.8) Red Blood Count 3.06 M/UL (4.70-6.10) L Hemoglobin 10.5 G/DL (14.2-18.0) L Hematocrit 31.9 % (42.0-52.0) L Mean Corpuscular Volume 104 FL (80-99) H Mean Corpuscular Hemoglobin 34.3 PG (27.0-31.0) H Mean Corpuscular Hemoglobin Concent 33.0 G/DL (32.0-36.0) Red Cell Distribution Width 13.1 % (11.6-14.8) Platelet Count 80 K/UL (150-450) L Mean Platelet Volume 10.9 FL (6.5-10.1) H Neutrophils (%) (Auto) % (45.0-75.0) Lymphocytes (%) (Auto) % (20.0-45.0) Monocytes (%) (Auto) % (1.0-10.0) Eosinophils (%) (Auto) % (0.0-3.0) Basophils (%) (Auto) % (0.0-2.0) Differential Total Cells Counted 100 Neutrophils % (Manual) 71 % (45-75) Lymphocytes % (Manual) 14 % (20-45) L Monocytes % (Manual) 8 % (1-10) Eosinophils % (Manual) 7 % (0-3) H Basophils % (Manual) 0 % (0-2) Band Neutrophils 0 % (0-8) Platelet Estimate Decreased L Platelet Morphology Normal Macrocytosis 1+ Sodium Level 144 MMOL/L (136-145) Potassium Level 4.2 MMOL/L (3.5-5.1) Chloride Level 101 MMOL/L (98-107) Carbon Dioxide Level 36 MMOL/L (21-32) H Anion Gap 8 mmol/L (5-15) Blood Urea Nitrogen 44 mg/dL (7-18) H Creatinine 8.3 MG/DL (0.55-1.30) H Estimat Glomerular Filtration Rate 8.4 mL/min (>60) Glucose Level 92 MG/DL (74-106) Uric Acid 4.0 MG/DL (2.6-7.2) Calcium Level 9.5 MG/DL (8.5-10.1) Phosphorus Level 4.7 MG/DL (2.5-4.9) Magnesium Level 2.2 MG/DL (1.8-2.4) Total Bilirubin 0.7 MG/DL (0.2-1.0) Aspartate Amino Transf (AST/SGOT) 15 U/L (15-37) Alanine Aminotransferase (ALT/SGPT) 6 U/L (12-78) L Alkaline Phosphatase 80 U/L (46-116) C-Reactive Protein, Quantitative 8.7 mg/dL (0.00-0.90) H Pro-B-Type Natriuretic Peptide 8161 pg/mL (0-125) H Total Protein 7.9 G/DL (6.4-8.2) Albumin 3.0 G/DL (3.4-5.0) L Globulin 4.9 g/dL Albumin/Globulin Ratio 0.6 (1.0-2.7) L Digoxin Level 1.5 NG/ML (0.5-2.0) Current Medications Medications (Trade) Dose Ordered Sig/David Route PRN Reason Start Time Stop Time Status Last Admin Dose Admin Acetaminophen (Tylenol) 650 mg Q4H PRN ORAL Fever 07/26/19 19:15 08/15/19 19:14 Acetaminophen (Tylenol) 650 mg Q4H PRN RECTAL FEVER 07/26/19 19:15 08/15/19 19:14 Albuterol/ Ipratropium (Albuterol/ Ipratropium) 3 ml Q4H PRN HHN Shortness of Breath 07/26/19 19:15 07/30/19 19:14 Bacitracin (Bacitracin 15gm tube) 1 applic THREE TIMES A DAY TOPIC 07/27/19 09:00 08/21/19 08:59 07/27/19 17:49 Carvedilol (Coreg) 25 mg EVERY 12 HOURS ORAL 07/26/19 21:00 08/17/19 09:59 07/26/19 20:58 Dextrose (Dextrose 50%) 25 ml Q30M PRN IV Hypoglycemia 07/26/19 19:30 08/15/19 13:59 Dextrose (Dextrose 50%) 50 ml Q30M PRN IV Hypoglycemia 07/26/19 19:30 08/15/19 13:59 Docusate Sodium (Colace) 100 mg THREE TIMES A DAY ORAL 07/27/19 09:00 08/25/19 12:59 07/27/19 17:49 Heparin Sodium (Porcine) (Heparin 5000 units/ml) 5,000 units EVERY 8 HOURS SUBQ 07/26/19 22:00 08/15/19 13:59 Hydralazine HCl (Apresoline) 10 mg Q4H PRN IV bp over 160 syst 07/26/19 19:15 08/15/19 19:14 Hydralazine HCl (Apresoline) 20 mg Q8HR ORAL 07/26/19 22:00 08/18/19 18:29 07/27/19 06:16 Metoclopramide HCl (Reglan) 5 mg EVERY 6 HOURS ORAL 07/27/19 00:00 08/21/19 11:59 07/27/19 17:48 Metoclopramide HCl (Reglan) 10 mg Q8H PRN IVP Nausea & Vomiting 07/26/19 19:15 08/20/19 19:14 Nitroglycerin (Ntg) 1 patch Q24H TDERMAL 07/27/19 06:00 08/19/19 05:59 07/27/19 06:17 Pantoprazole (Protonix) 40 mg BID ORAL 07/27/19 09:00 08/25/19 08:59 07/27/19 17:49 Risperidone (RisperDAL) 0.5 mg Q4H PRN ORAL agitation 07/27/19 18:30 08/26/19 18:29 Sennosides (Senokot) 8.6 mg BIDPRN PRN ORAL Constipation 07/26/19 19:15 08/25/19 19:14 Sevelamer Carbonate (Renvela) 2,400 mg Q6HR ORAL 07/27/19 00:00 08/22/19 12:59 07/27/19 17:49 Lee Ann Hyatt M.D. Jul 27, 2019 19:25
--- NOTE | 2019-07-27 19:30 | NUR ---
HAND-OFF: Report given to JOCE SULLIVAN.
--- NOTE | 2019-07-27 19:35 | NUR ---
NURSE NOTES: Received report from JOCE Johnson. Patient is in bed, asleep. Responsive to tactile and verbal stimuli. Breathing regular and unlabored with no S/S of SOB noted. Patient has a Left upper arm shunt, sign is placed on top of the bed. IV access is on the RFA, 20G, saline locked. Bed is in lowest position, bed alarm on, side rails x3, and call light is within reach. All other needs are attended to. Patient is currently stable, will continue to monitor.
--- NOTE | 2019-07-27 19:36 | NUR ---
HAND-OFF: Report given to JOCE Foy. Pt in stable condition. Endorsed plan of care.
--- NOTE | 2019-07-27 19:42 | Cardiology Progress Note ---
Assessment/Plan Assessment/Plan 1. Status cardiac arrest, asystolic in origin. 2. Reported history of dilated cardiomyopathy that had improved in October 2018. 3. Hypertension, poorly controlled. 4. Hyperlipidemia. 5. End-stage renal disease, on hemodialysis. 6. History of systolic heart failure previously. 7. Lisinopril and penicillin allergy. 8. Diabetes mellitus. 9. Secondary hyperparathyroidism. 10. History of asthma. 11. Anemia, secondary to end-stage renal disease. 12. post arrest evidence for cardiomyopathy resolved on echo 07/27/2018 c/w takatsubos cm minro trop abn with out a peak or lorri to suggest acs an in della settign of renal failure is not specific tele personally reviewed labs noted bp increased cannot take acei due to allergy s/p dialysis overall better keep supportive care dvt ppx heparin rn reported on initial admission to icu pt with food vomit post arrest , aspiration may be a possibility ? Isordil and hydralazine for cm echo on 07/27/2019 showed sig imp[rovement of cm suggestive of takatsubos cardiomyopathy Subjective Cardiovascular: Denies: chest pain, lightheadedness Respiratory: Denies: shortness of breath Gastrointestinal/Abdominal: Denies: abdominal pain Genitourinary: Denies: burning Objective Last 24 Hour Vital Signs Date Time Temp Pulse Resp B/P (MAP) Pulse Ox O2 Delivery O2 Flow Rate FiO2 07/27/19 16:00 97.7 86 18 122/67 (85) 94 07/27/19 15:32 89 07/27/19 14:00 108/65 07/27/19 12:46 99 07/27/19 12:00 97.3 99 18 108/65 (79) 95 07/27/19 11:24 94 07/27/19 09:00 Room Air 07/27/19 09:00 92 116/69 07/27/19 08:05 92 20 96 Room Air 21 07/27/19 08:05 96 Room Air 21 07/27/19 08:00 97.9 94 18 116/69 (85) 94 07/27/19 07:36 95 07/27/19 06:17 140/75 07/27/19 06:16 140/75 07/27/19 04:00 95 07/27/19 04:00 98.2 93 18 138/73 (94) 93 07/27/19 00:00 97.5 96 18 125/64 (84) 94 07/27/19 00:00 89 07/26/19 23:24 124/61 07/26/19 20:58 96 144/99 07/26/19 20:04 98 22 97 Room Air 21 07/26/19 20:04 97 Room Air 21 07/26/19 20:00 97 07/26/19 20:00 97.1 95 20 115/65 (82) 94 07/26/19 20:00 Nasal Cannula 2.0 General Appearance: no apparent distress, alert Neck: supple Cardiovascular: normal rate Respiratory/Chest: lungs clear Abdomen: normal bowel sounds, non tender, soft Extremities: no swelling Intake and Output 07/26/19 07/27/19 19:00 07:00 Intake Total 0 ml 480 ml Balance 0 ml 480 ml Intake Oral 480 ml Hemodialysis 0 ml Laboratory Tests Test 07/27/19 05:20 White Blood Count 6.2 K/UL (4.8-10.8) Red Blood Count 3.06 M/UL (4.70-6.10) L Hemoglobin 10.5 G/DL (14.2-18.0) L Hematocrit 31.9 % (42.0-52.0) L Mean Corpuscular Volume 104 FL (80-99) H Mean Corpuscular Hemoglobin 34.3 PG (27.0-31.0) H Mean Corpuscular Hemoglobin Concent 33.0 G/DL (32.0-36.0) Red Cell Distribution Width 13.1 % (11.6-14.8) Platelet Count 80 K/UL (150-450) L Mean Platelet Volume 10.9 FL (6.5-10.1) H Neutrophils (%) (Auto) % (45.0-75.0) Lymphocytes (%) (Auto) % (20.0-45.0) Monocytes (%) (Auto) % (1.0-10.0) Eosinophils (%) (Auto) % (0.0-3.0) Basophils (%) (Auto) % (0.0-2.0) Differential Total Cells Counted 100 Neutrophils % (Manual) 71 % (45-75) Lymphocytes % (Manual) 14 % (20-45) L Monocytes % (Manual) 8 % (1-10) Eosinophils % (Manual) 7 % (0-3) H Basophils % (Manual) 0 % (0-2) Band Neutrophils 0 % (0-8) Platelet Estimate Decreased L Platelet Morphology Normal Macrocytosis 1+ Sodium Level 144 MMOL/L (136-145) Potassium Level 4.2 MMOL/L (3.5-5.1) Chloride Level 101 MMOL/L (98-107) Carbon Dioxide Level 36 MMOL/L (21-32) H Anion Gap 8 mmol/L (5-15) Blood Urea Nitrogen 44 mg/dL (7-18) H Creatinine 8.3 MG/DL (0.55-1.30) H Estimat Glomerular Filtration Rate 8.4 mL/min (>60) Glucose Level 92 MG/DL (74-106) Uric Acid 4.0 MG/DL (2.6-7.2) Calcium Level 9.5 MG/DL (8.5-10.1) Phosphorus Level 4.7 MG/DL (2.5-4.9) Magnesium Level 2.2 MG/DL (1.8-2.4) Total Bilirubin 0.7 MG/DL (0.2-1.0) Aspartate Amino Transf (AST/SGOT) 15 U/L (15-37) Alanine Aminotransferase (ALT/SGPT) 6 U/L (12-78) L Alkaline Phosphatase 80 U/L (46-116) C-Reactive Protein, Quantitative 8.7 mg/dL (0.00-0.90) H Pro-B-Type Natriuretic Peptide 8161 pg/mL (0-125) H Total Protein 7.9 G/DL (6.4-8.2) Albumin 3.0 G/DL (3.4-5.0) L Globulin 4.9 g/dL Albumin/Globulin Ratio 0.6 (1.0-2.7) L Digoxin Level 1.5 NG/ML (0.5-2.0) Emmanuel Cortés MD Jul 27, 2019 19:42
[2019-07-27 20:00] VITALS: BP 149/78
--- NOTE | 2019-07-27 22:00 | Consultation ---
DATE OF CONSULTATION: 07/27/2019 HISTORY OF PRESENT ILLNESS: This is a 49-year-old male with history of multiple medical issues including acute respiratory failure, end-stage renal disease on hemodialysis, diabetes mellitus, cardiomyopathy, hypertension who has been admitted to the hospital for medical stabilization. The patient presents with generalized weakness, agitation, inability to participate in the evaluation. The patient has waxing and waning consciousness, and has been deteriorating, not able to provide any meaningful history that is why the information was gathered from the staff and primary physicians well as chart. PAST PSYCHIATRIC HISTORY: No known psychiatric hospitalization. No known psychiatric history. PAST MEDICAL HISTORY: End-stage renal disease, scrotal lesion, cardiac arrest, anemia, congestive heart failure, diabetes mellitus, asthma, hypertension. MENTAL STATUS EXAMINATION: The patient is awake, confused, disoriented. Mood is agitated. Affect is flat. Thought process is concrete. Thought content, no suicidal or homicidal ideation. Cognition is impaired. Insight and judgment impaired. ASSESSMENT: [place] I Acute metabolic encephalopathy. [place] II Deferred. [place] III As above. [place] IV Low to moderate [place] V 20 PLAN: 1. We will discontinue the Ativan. 2. start the patient on risperidone 0.5 mg q. 4 hours as needed for agitation. Rc Perdomo M.D. DR: Taz JOB#: [id number] CC:
[2019-07-28] VITALS: BP 117/75
[2019-07-28 04:00] VITALS: BP 142/58
[2019-07-28] MEDS: Metoclopramide 10mg/10ml Liq ORAL SCH ×4 (06:00→18:03)
[2019-07-28] MEDS: Heparin 5000 units/ml inj SUBQ SCH ×3 (06:00→22:00)
[2019-07-28] MEDS: Nitroglycerin Patch 0.4mg TDERMAL SCH (06:00)
[2019-07-28] MEDS: Renvela 800mg Pkt ORAL SCH ×4 (06:00→18:02)
[2019-07-28] MEDS: HydrALAZINE 10mg Tab ORAL SCH ×3 (06:00→06:23)
--- NOTE | 2019-07-28 06:57 | General Progress Note ---
Assessment/Plan Status: stable, progressing Assessment/Plan: Assessment/Plan Problems: (1) Scrotal lesion ICD Codes: N50.9 - Disorder of male genital organs, unspecified SNOMED: 09301193 (2) Cardiac arrest ICD Codes: I46.9 - Cardiac arrest, cause unspecified SNOMED: 316947384 (3) Anemia ICD Codes: D64.9 - Anemia, unspecified SNOMED: 326362409 (4) Constipation ICD Codes: K59.00 - Constipation, unspecified (5) N/V, TF intolerance Assessment/Plan follow up cardiology recs prn transfusions ppi eating much better will hold NGT or GT feeding plans for now Subjective ROS Limited/Unobtainable: No Allergies: Coded Allergies: LISINOPRIL (Verified Allergy, Severe, Shortness of Breath, 07/02/19) THROAT SWELLS UP PENICILLINS (Verified Allergy, Severe, throat swelling, 07/17/19) tolerated Ancef x1 07/16/19 Uncoded Allergies: shellfish (Allergy, Severe, 02/06/19) shortness of breath, vomiting, throat swelling Objective Last 24 Hour Vital Signs Date Time Temp Pulse Resp B/P (MAP) Pulse Ox O2 Delivery O2 Flow Rate FiO2 07/28/19 04:00 98.0 68 18 142/58 (86) 96 07/28/19 04:00 91 07/28/19 00:00 98.0 96 20 117/75 (89) 96 07/28/19 00:00 83 07/27/19 22:08 149/78 07/27/19 22:08 96 149/78 07/27/19 21:10 96 21 97 Room Air 21 07/27/19 21:00 Room Air 07/27/19 20:00 98.4 88 20 149/78 (101) 97 07/27/19 20:00 86 07/27/19 16:00 97.7 86 18 122/67 (85) 94 07/27/19 15:32 89 07/27/19 14:00 108/65 07/27/19 12:46 99 07/27/19 12:00 97.3 99 18 108/65 (79) 95 07/27/19 11:24 94 07/27/19 09:00 Room Air 07/27/19 09:00 92 116/69 07/27/19 08:05 92 20 96 Room Air 21 07/27/19 08:05 96 Room Air 21 07/27/19 08:00 97.9 94 18 116/69 (85) 94 07/27/19 07:36 95 Intake and Output 07/27/19 07/28/19 19:00 07:00 Intake Total 600 ml 120 ml Balance 600 ml 120 ml Intake Oral 600 ml 120 ml Height (Feet): 5 Height (Inches): 5.50 Weight (Pounds): 146 General Appearance: alert EENT: normal ENT inspection Neck: supple Cardiovascular: normal rate Respiratory/Chest: decreased breath sounds Abdomen: normal bowel sounds, non tender, soft Extremities: non-tender Richy Delarosa MD Jul 28, 2019 06:57
--- NOTE | 2019-07-28 07:05 | NUR ---
NURSE NOTES: Received report from JOCE Foy. Observed pt lying and sleeping in bed. Pt breathing even and unlabored in RA, no SOB noted. R scrotal dressing dry and intact. Pt on bilateral soft wrist restraints, no swelling noted, pulses are present. Bed in lowest position, call light within reach. Will continue plan of care.
--- NOTE | 2019-07-28 07:06 | NUR ---
HAND-OFF: Report given to JOCE Johnson. Patient in stable condition, plan of care endorsed.
[2019-07-28 07:17] LABS: HEMATOCRIT 32.9 % (42.0-52.0); HEMOGLOBIN 10.7 G/DL (14.2-18.0); MEAN CORPUSCULAR VOLUME 104 FL (80-99); PLATELET COUNT 92 K/UL (150-450); RED BLOOD COUNT 3.17 M/UL (4.70-6.10); RED CELL DISTRIBUTION WIDTH 12.9 % (11.6-14.8); WHITE BLOOD COUNT 7.3 K/UL (4.8-10.8)
[2019-07-28 07:46] LABS: ALANINE AMINOTRANSFERASE 6 U/L (12-78); ALBUMIN/GLOBULIN RATIO 0.6 (1.0-2.7); ALKALINE PHOSPHATASE 82 U/L (46-116); ANION GAP 7 mmol/L (5-15); ASPARTATE AMINO TRANSFERASE 12 U/L (15-37); BILIRUBIN,TOTAL 0.6 MG/DL (0.2-1.0); BLOOD UREA NITROGEN 58 mg/dL (7-18); CALCIUM 9.6 MG/DL (8.5-10.1); CARBON DIOXIDE 35 MMOL/L (21-32); CHLORIDE 101 MMOL/L (98-107); CREATININE 10.5 MG/DL (0.55-1.30); PHOSPHORUS 5.7 MG/DL (2.5-4.9); POTASSIUM 4.5 MMOL/L (3.5-5.1); SODIUM 143 MMOL/L (136-145)
[2019-07-28 08:00] VITALS: BP 164/76
[2019-07-28] MEDS: Carvedilol 25mg Tab ORAL SCH ×2 (09:00→21:52)
--- NOTE | 2019-07-28 09:41 | Surgery Progress Note ---
Surgery Progress Note Subjective Procedure Performed 1. excision of scrotal lesion - aborted Additional Comments no acute events comfortable stable Objective Last 24 Hour Vital Signs Date Time Temp Pulse Resp B/P (MAP) Pulse Ox O2 Delivery O2 Flow Rate FiO2 07/28/19 08:55 91 20 97 Room Air 21 07/28/19 08:27 Room Air 07/28/19 08:00 97.8 89 18 164/76 (105) 96 07/28/19 04:00 98.0 68 18 142/58 (86) 96 07/28/19 04:00 91 07/28/19 00:00 98.0 96 20 117/75 (89) 96 07/28/19 00:00 83 07/27/19 22:08 149/78 07/27/19 22:08 96 149/78 07/27/19 21:10 96 21 97 Room Air 21 07/27/19 21:00 Room Air 07/27/19 20:00 98.4 88 20 149/78 (101) 97 07/27/19 20:00 86 07/27/19 16:00 97.7 86 18 122/67 (85) 94 07/27/19 15:32 89 07/27/19 14:00 108/65 07/27/19 12:46 99 07/27/19 12:00 97.3 99 18 108/65 (79) 95 07/27/19 11:24 94 I&O Intake and Output 07/27/19 07/28/19 19:00 07:00 Intake Total 600 ml 120 ml Balance 600 ml 120 ml Intake Oral 600 ml 120 ml Dressing: saturated Wound: clean Cardiovascular: RSR Respiratory: clear Abdomen: soft, non-tender, present bowel sounds Extremities: no cyanosis Laboratory Tests Test 07/28/19 06:40 White Blood Count 7.3 K/UL (4.8-10.8) Red Blood Count 3.17 M/UL (4.70-6.10) L Hemoglobin 10.7 G/DL (14.2-18.0) L Hematocrit 32.9 % (42.0-52.0) L Mean Corpuscular Volume 104 FL (80-99) H Mean Corpuscular Hemoglobin 33.9 PG (27.0-31.0) H Mean Corpuscular Hemoglobin Concent 32.6 G/DL (32.0-36.0) Red Cell Distribution Width 12.9 % (11.6-14.8) Platelet Count 92 K/UL (150-450) L Mean Platelet Volume 10.3 FL (6.5-10.1) H Neutrophils (%) (Auto) % (45.0-75.0) Lymphocytes (%) (Auto) % (20.0-45.0) Monocytes (%) (Auto) % (1.0-10.0) Eosinophils (%) (Auto) % (0.0-3.0) Basophils (%) (Auto) % (0.0-2.0) Differential Total Cells Counted 100 Neutrophils % (Manual) 74 % (45-75) Lymphocytes % (Manual) 18 % (20-45) L Monocytes % (Manual) 8 % (1-10) Eosinophils % (Manual) 0 % (0-3) Basophils % (Manual) 0 % (0-2) Band Neutrophils 0 % (0-8) Platelet Estimate Decreased L Platelet Morphology Normal Hypochromasia 1+ Macrocytosis 1+ Sodium Level 143 MMOL/L (136-145) Potassium Level 4.5 MMOL/L (3.5-5.1) Chloride Level 101 MMOL/L (98-107) Carbon Dioxide Level 35 MMOL/L (21-32) H Anion Gap 7 mmol/L (5-15) Blood Urea Nitrogen 58 mg/dL (7-18) H Creatinine 10.5 MG/DL (0.55-1.30) H Estimat Glomerular Filtration Rate 6.3 mL/min (>60) Glucose Level 83 MG/DL (74-106) Calcium Level 9.6 MG/DL (8.5-10.1) Phosphorus Level 5.7 MG/DL (2.5-4.9) H Magnesium Level 2.4 MG/DL (1.8-2.4) Total Bilirubin 0.6 MG/DL (0.2-1.0) Aspartate Amino Transf (AST/SGOT) 12 U/L (15-37) L Alanine Aminotransferase (ALT/SGPT) 6 U/L (12-78) L Alkaline Phosphatase 82 U/L (46-116) C-Reactive Protein, Quantitative 5.1 mg/dL (0.00-0.90) H Pro-B-Type Natriuretic Peptide 8484 pg/mL (0-125) H Total Protein 7.9 G/DL (6.4-8.2) Albumin 3.0 G/DL (3.4-5.0) L Globulin 4.9 g/dL Albumin/Globulin Ratio 0.6 (1.0-2.7) L Digoxin Level 1.4 NG/ML (0.5-2.0) Plan Problems: (1) Scrotal lesion Assessment & Plan: Continue with 3 times daily dressings okay for bacitracin and Xeroform gauze (2) Cardiac arrest Assessment & Plan: Etiology unknown pending echo appreciate cardiology input Continue current care extubated abg okay diet monitoring d/c planning thank you Thank you will follow with recommendations Zenon Galloway Jul 28, 2019 09:41
[2019-07-28] MEDS: Bacitracin Oint 15gm Tube TOPIC SCH ×3 (09:55→18:03)
[2019-07-28] MEDS: Docusate 100mg cap ORAL SCH ×3 (09:55→18:02)
--- NOTE | 2019-07-28 09:55 | Nephrology Progress Note ---
Assessment/Plan Problem List: (1) ESRD (end stage renal disease) (2) Acute respiratory failure (3) Cardiac arrest (4) Diabetes mellitus (5) Cardiomyopathy Assessment interoperative cardiac arrest Cardiomyopathy and Low ejfx ESRD- high K BP low at this time s/p Asystole in OR Plan MRI of Brain dialysis - next 07/28 add Phos binder and adjust dose Digoxin adjust BP meds self extubated 07/[address] eval PRN BP meds adjust bp meds dose HD next 07/28 2D echo noted per orders Subjective ROS Limited/Unobtainable: No Constitutional: Reports: malaise, weakness Objective Objective Last 24 Hour Vital Signs Date Time Temp Pulse Resp B/P (MAP) Pulse Ox O2 Delivery O2 Flow Rate FiO2 07/28/19 08:55 91 20 97 Room Air 21 07/28/19 08:27 Room Air 07/28/19 08:00 97.8 89 18 164/76 (105) 96 07/28/19 04:00 98.0 68 18 142/58 (86) 96 07/28/19 04:00 91 07/28/19 00:00 98.0 96 20 117/75 (89) 96 07/28/19 00:00 83 07/27/19 22:08 149/78 07/27/19 22:08 96 149/78 07/27/19 21:10 96 21 97 Room Air 21 07/27/19 21:00 Room Air 07/27/19 20:00 98.4 88 20 149/78 (101) 97 07/27/19 20:00 86 07/27/19 16:00 97.7 86 18 122/67 (85) 94 07/27/19 15:32 89 07/27/19 14:00 108/65 07/27/19 12:46 99 07/27/19 12:00 97.3 99 18 108/65 (79) 95 07/27/19 11:24 94 Intake and Output 07/27/19 07/28/19 19:00 07:00 Intake Total 600 ml 120 ml Balance 600 ml 120 ml Intake Oral 600 ml 120 ml Laboratory Tests 07/28/19 06:40: White Blood Count 7.3, Red Blood Count 3.17L, Hemoglobin 10.7L, Hematocrit 32.9L , Mean Corpuscular Volume 104H, Mean Corpuscular Hemoglobin 33.9H, Mean Corpuscular Hemoglobin Concent 32.6, Red Cell Distribution Width 12.9, Platelet Count 92L, Mean Platelet Volume 10.3H, Neutrophils (%) (Auto) , Lymphocytes (%) (Auto) , Monocytes (%) (Auto) , Eosinophils (%) (Auto) , Basophils (%) (Auto) , Differential Total Cells Counted 100, Neutrophils % (Manual) 74, Lymphocytes % ( Manual) 18L, Monocytes % (Manual) 8, Eosinophils % (Manual) 0, Basophils % ( Manual) 0, Band Neutrophils 0, Platelet Estimate DecreasedL, Platelet Morphology Normal, Hypochromasia 1+, Macrocytosis 1+, Sodium Level 143, Potassium Level 4.5, Chloride Level 101, Carbon Dioxide Level 35H, Anion Gap 7, Blood Urea Nitrogen 58H, Creatinine 10.5H, Estimat Glomerular Filtration Rate 6.3, Glucose Level 83, Calcium Level 9.6, Phosphorus Level 5.7H, Magnesium Level 2.4, Total Bilirubin 0.6, Aspartate Amino Transf (AST/SGOT) 12L, Alanine Aminotransferase (ALT/SGPT) 6L, Alkaline Phosphatase 82, C-Reactive Protein, Quantitative 5.1H, Pro-B-Type Natriuretic Peptide 8484H, Total Protein 7.9, Albumin 3.0L, Globulin 4.9, Albumin/Globulin Ratio 0.6L, Digoxin Level 1.4 Height (Feet): 5 Height (Inches): 5.50 Weight (Pounds): 146 General Appearance: no apparent distress, lethargic, confused Cardiovascular: tachycardia Respiratory/Chest: decreased breath sounds Abdomen: distended Objective no change Daniel Delgadillo MD Jul 28, 2019 09:55
--- NOTE | 2019-07-28 10:16 | Infectious Diseases Prog Note ---
Assessment/Plan Assessment/Plan Assessment: Probable aspiration PNA, sp rx -07/20 CXR: Mild pulmonary vascular congestion suspected. Bilateral pleural effusions. -07/17 CXR: Bilateral pleural effusion and mild interstitial congestion and hazy parenchymal opacity present. Cardiac arrest asystole during surgical procedure -07/16 CXR: pulmonary edema Non healing scrotal wound; bx showed: ruptured epidermal inclusion cyst with associated abscess formation -07/16 sp attempted excision but procedure aborted due to cardiac arrest VDRF 07/16; extubated 07/18 Afebrile Mild leukocytosis, SP ESRD on HD via L arm AVF Dm2 HTN internal hemorrhoids Plan: -Cont to monitor off abx -07/23 SP LEvaquin #7 -07/16 SP Ancef x1 -f/u cx -Monitor CBC/CMP, temperatures -aspiration precautions -wound care per surgical team -Sx, Neprho, pulm f/u Thank you for this consultation. Will continue to follow along with you. Discussed with RN Subjective Allergies: Coded Allergies: LISINOPRIL (Verified Allergy, Severe, Shortness of Breath, 07/02/19) THROAT SWELLS UP PENICILLINS (Verified Allergy, Severe, throat swelling, 07/17/19) tolerated Ancef x1 07/16/19 Uncoded Allergies: shellfish (Allergy, Severe, 02/06/19) shortness of breath, vomiting, throat swelling Subjective afebrile Objective Vital Signs Last 24 Hour Vital Signs Date Time Temp Pulse Resp B/P (MAP) Pulse Ox O2 Delivery O2 Flow Rate FiO2 07/28/19 09:00 91 164/76 07/28/19 08:55 91 20 97 Room Air 21 07/28/19 08:27 Room Air 07/28/19 08:00 97.8 89 18 164/76 (105) 96 07/28/19 04:00 98.0 68 18 142/58 (86) 96 07/28/19 04:00 91 07/28/19 00:00 98.0 96 20 117/75 (89) 96 07/28/19 00:00 83 07/27/19 22:08 149/78 07/27/19 22:08 96 149/78 07/27/19 21:10 96 21 97 Room Air 21 07/27/19 21:00 Room Air 07/27/19 20:00 98.4 88 20 149/78 (101) 97 07/27/19 20:00 86 07/27/19 16:00 97.7 86 18 122/67 (85) 94 07/27/19 15:32 89 07/27/19 14:00 108/65 07/27/19 12:46 99 07/27/19 12:00 97.3 99 18 108/65 (79) 95 07/27/19 11:24 94 Height (Feet): 5 Height (Inches): 5.50 Weight (Pounds): 146 Respiratory/Chest: normal breath sounds Cardiovascular: regular rhythm Abdomen: no organomegaly Laboratory Tests Test 07/28/19 06:40 White Blood Count 7.3 K/UL (4.8-10.8) Red Blood Count 3.17 M/UL (4.70-6.10) L Hemoglobin 10.7 G/DL (14.2-18.0) L Hematocrit 32.9 % (42.0-52.0) L Mean Corpuscular Volume 104 FL (80-99) H Mean Corpuscular Hemoglobin 33.9 PG (27.0-31.0) H Mean Corpuscular Hemoglobin Concent 32.6 G/DL (32.0-36.0) Red Cell Distribution Width 12.9 % (11.6-14.8) Platelet Count 92 K/UL (150-450) L Mean Platelet Volume 10.3 FL (6.5-10.1) H Neutrophils (%) (Auto) % (45.0-75.0) Lymphocytes (%) (Auto) % (20.0-45.0) Monocytes (%) (Auto) % (1.0-10.0) Eosinophils (%) (Auto) % (0.0-3.0) Basophils (%) (Auto) % (0.0-2.0) Differential Total Cells Counted 100 Neutrophils % (Manual) 74 % (45-75) Lymphocytes % (Manual) 18 % (20-45) L Monocytes % (Manual) 8 % (1-10) Eosinophils % (Manual) 0 % (0-3) Basophils % (Manual) 0 % (0-2) Band Neutrophils 0 % (0-8) Platelet Estimate Decreased L Platelet Morphology Normal Hypochromasia 1+ Macrocytosis 1+ Sodium Level 143 MMOL/L (136-145) Potassium Level 4.5 MMOL/L (3.5-5.1) Chloride Level 101 MMOL/L (98-107) Carbon Dioxide Level 35 MMOL/L (21-32) H Anion Gap 7 mmol/L (5-15) Blood Urea Nitrogen 58 mg/dL (7-18) H Creatinine 10.5 MG/DL (0.55-1.30) H Estimat Glomerular Filtration Rate 6.3 mL/min (>60) Glucose Level 83 MG/DL (74-106) Calcium Level 9.6 MG/DL (8.5-10.1) Phosphorus Level 5.7 MG/DL (2.5-4.9) H Magnesium Level 2.4 MG/DL (1.8-2.4) Total Bilirubin 0.6 MG/DL (0.2-1.0) Aspartate Amino Transf (AST/SGOT) 12 U/L (15-37) L Alanine Aminotransferase (ALT/SGPT) 6 U/L (12-78) L Alkaline Phosphatase 82 U/L (46-116) C-Reactive Protein, Quantitative 5.1 mg/dL (0.00-0.90) H Pro-B-Type Natriuretic Peptide 8484 pg/mL (0-125) H Total Protein 7.9 G/DL (6.4-8.2) Albumin 3.0 G/DL (3.4-5.0) L Globulin 4.9 g/dL Albumin/Globulin Ratio 0.6 (1.0-2.7) L Digoxin Level 1.4 NG/ML (0.5-2.0) Current Medications Medications (Trade) Dose Ordered Sig/David Route PRN Reason Start Time Stop Time Status Last Admin Dose Admin Acetaminophen (Tylenol) 650 mg Q4H PRN ORAL Fever 07/26/19 19:15 08/15/19 19:14 Acetaminophen (Tylenol) 650 mg Q4H PRN RECTAL FEVER 07/26/19 19:15 08/15/19 19:14 Albuterol/ Ipratropium (Albuterol/ Ipratropium) 3 ml Q4H PRN HHN Shortness of Breath 07/26/19 19:15 07/30/19 19:14 Bacitracin (Bacitracin 15gm tube) 1 applic THREE TIMES A DAY TOPIC 07/27/19 09:00 08/21/19 08:59 07/28/19 09:55 Carvedilol (Coreg) 25 mg EVERY 12 HOURS ORAL 07/26/19 21:00 08/17/19 09:59 07/27/19 22:08 Dextrose (Dextrose 50%) 25 ml Q30M PRN IV Hypoglycemia 07/26/19 19:30 08/15/19 13:59 Dextrose (Dextrose 50%) 50 ml Q30M PRN IV Hypoglycemia 07/26/19 19:30 08/15/19 13:59 Digoxin (Lanoxin) 0.25 mg ONCE ORAL 07/28/19 10:00 07/28/19 12:00 Docusate Sodium (Colace) 100 mg THREE TIMES A DAY ORAL 07/27/19 09:00 08/25/19 12:59 07/28/19 09:55 Heparin Sodium (Porcine) (Heparin 5000 units/ml) 5,000 units EVERY 8 HOURS SUBQ 07/26/19 22:00 08/15/19 13:59 Hydralazine HCl (Apresoline) 10 mg Q4H PRN IV bp over 160 syst 07/26/19 19:15 08/15/19 19:14 Hydralazine HCl (Apresoline) 25 mg Q8HR ORAL 07/28/19 14:00 08/18/19 18:29 Metoclopramide HCl (Reglan) 5 mg EVERY 6 HOURS ORAL 07/27/19 00:00 08/21/19 11:59 07/27/19 23:55 Metoclopramide HCl (Reglan) 10 mg Q8H PRN IVP Nausea & Vomiting 07/26/19 19:15 08/20/19 19:14 Nitroglycerin (Ntg) 1 patch Q24H TDERMAL 07/27/19 06:00 08/19/19 05:59 07/27/19 06:17 Pantoprazole (Protonix) 40 mg BID ORAL 07/27/19 09:00 08/25/19 08:59 07/28/19 09:55 Risperidone (RisperDAL) 0.5 mg Q4H PRN ORAL agitation 07/27/19 18:30 08/26/19 18:29 Sennosides (Senokot) 8.6 mg BIDPRN PRN ORAL Constipation 07/26/19 19:15 08/25/19 19:14 Sevelamer Carbonate (Renvela) 2,400 mg Q6HR ORAL 07/27/19 00:00 08/22/19 12:59 07/27/19 23:55 Darin Jean MD Jul 28, 2019 10:16
[2019-07-28 12:00] VITALS: BP 135/59
--- NOTE | 2019-07-28 13:13 | Pulmonology Progress Note ---
Assessment/Plan Assessment/Plan ASSESSMENT probable aspiration pneumonia , s/p treatment s/p cardiac arrest, asystolic - during surgical procedure acute respiratory failure requiring intubation, self extubated 07/18 cardiomyopathy with EF 20-25% CHF with systolic dysfunction scrotal wound /ruptured epidermal inclusion cyst with associated abscess formation ESRD, on hemodialysis History of hypertension Diabetes mellitus Dysphagia Anemia of chronic kidney disease PLAN OF CARE PATRICK self extubated 07/18 02, HHN as needed abx as per ID -completed Echo with EF 20-25%, elevated LA pressure grade 2 carotid duplex less than 50% stenosis bilaterally Guideline directed medical therapy with BB, Isordil and hydralazine (allergic to YELENA) troponin minimally elevated , nonspecific pattern , not suggestive of acute coronary syndrome as per cardio, normalized -possibly due to cardiac arrest attempted excision of nonhealing scrotal wound aborted due to cardiac arrest status post biopsy ; it showed ruptured epidermal inclusion cyst with associated abscess formation, status post abx HD as per senior interaction designer with close monitoring of volumes and renal parameters, correct electrolytes as needed DVT and GI prophylaxis failed swallow evaluation may need another NG tube, GI on board monitor H&H with goal to keep hemoglobin above 7 anemia work-up consistent with anemia of chronic disease stool OB negative dc plan in progress case discussed and evaluated by supervising physician Subjective Allergies: Coded Allergies: LISINOPRIL (Verified Allergy, Severe, Shortness of Breath, 07/02/19) THROAT SWELLS UP PENICILLINS (Verified Allergy, Severe, throat swelling, 07/17/19) tolerated Ancef x1 07/16/19 Uncoded Allergies: shellfish (Allergy, Severe, 02/06/19) shortness of breath, vomiting, throat swelling Subjective afebrile, no signs of resp distress Objective Last 24 Hour Vital Signs Date Time Temp Pulse Resp B/P (MAP) Pulse Ox O2 Delivery O2 Flow Rate FiO2 07/28/19 10:51 91 07/28/19 09:00 91 164/76 07/28/19 08:55 91 20 97 Room Air 21 07/28/19 08:27 Room Air 07/28/19 08:00 97.8 89 18 164/76 (105) 96 07/28/19 07:53 88 07/28/19 04:00 98.0 68 18 142/58 (86) 96 07/28/19 04:00 91 2/8/20 00:00 98.0 96 20 117/75 (89) 96 07/28/19 00:00 83 07/27/19 22:08 149/78 07/27/19 22:08 96 149/78 07/27/19 21:10 96 21 97 Room Air 21 07/27/19 21:00 Room Air 07/27/19 20:00 98.4 88 20 149/78 (101) 97 07/27/19 20:00 86 07/27/19 16:00 97.7 86 18 122/67 (85) 94 07/27/19 15:32 89 07/27/19 14:00 108/65 Intake and Output 07/27/19 07/28/19 19:00 07:00 Intake Total 600 ml 120 ml Balance 600 ml 120 ml Intake Oral 600 ml 120 ml Objective General Appearance: no acute distress HEENT: normocephalic, atraumatic, anicteric Respiratory/Chest: lungs clear, no respiratory distress Cardiovascular: tachycardia - low tachy Abdomen: soft, non tender, non distended Extremities: no edema Skin: no rash Neurologic/Psychiatric: abnormal gait, alert - confused Musculoskeletal: normal muscle bulk Laboratory Tests 07/28/19 06:40: White Blood Count 7.3, Red Blood Count 3.17L, Hemoglobin 10.7L, Hematocrit 32.9L , Mean Corpuscular Volume 104H, Mean Corpuscular Hemoglobin 33.9H, Mean Corpuscular Hemoglobin Concent 32.6, Red Cell Distribution Width 12.9, Platelet Count 92L, Mean Platelet Volume 10.3H, Neutrophils (%) (Auto) , Lymphocytes (%) (Auto) , Monocytes (%) (Auto) , Eosinophils (%) (Auto) , Basophils (%) (Auto) , Differential Total Cells Counted 100, Neutrophils % (Manual) 74, Lymphocytes % ( Manual) 18L, Monocytes % (Manual) 8, Eosinophils % (Manual) 0, Basophils % ( Manual) 0, Band Neutrophils 0, Platelet Estimate DecreasedL, Platelet Morphology Normal, Hypochromasia 1+, Macrocytosis 1+, Sodium Level 143, Potassium Level 4.5, Chloride Level 101, Carbon Dioxide Level 35H, Anion Gap 7, Blood Urea Nitrogen 58H, Creatinine 10.5H, Estimat Glomerular Filtration Rate 6.3, Glucose Level 83, Calcium Level 9.6, Phosphorus Level 5.7H, Magnesium Level 2.4, Total Bilirubin 0.6, Aspartate Amino Transf (AST/SGOT) 12L, Alanine Aminotransferase (ALT/SGPT) 6L, Alkaline Phosphatase 82, C-Reactive Protein, Quantitative 5.1H, Pro-B-Type Natriuretic Peptide 8484H, Total Protein 7.9, Albumin 3.0L, Globulin 4.9, Albumin/Globulin Ratio 0.6L, Digoxin Level 1.4 Current Medications Medications (Trade) Dose Ordered Sig/David Route PRN Reason Start Time Stop Time Status Last Admin Dose Admin Acetaminophen (Tylenol) 650 mg Q4H PRN ORAL Fever 07/26/19 19:15 08/15/19 19:14 Acetaminophen (Tylenol) 650 mg Q4H PRN RECTAL FEVER 07/26/19 19:15 08/15/19 19:14 Albuterol/ Ipratropium (Albuterol/ Ipratropium) 3 ml Q4H PRN HHN Shortness of Breath 07/26/19 19:15 07/30/19 19:14 Bacitracin (Bacitracin 15gm tube) 1 applic THREE TIMES A DAY TOPIC 07/27/19 09:00 08/21/19 08:59 07/28/19 09:55 Carvedilol (Coreg) 25 mg EVERY 12 HOURS ORAL 07/26/19 21:00 08/17/19 09:59 07/27/19 22:08 Dextrose (Dextrose 50%) 25 ml Q30M PRN IV Hypoglycemia 07/26/19 19:30 08/15/19 13:59 Dextrose (Dextrose 50%) 50 ml Q30M PRN IV Hypoglycemia 07/26/19 19:30 08/15/19 13:59 Docusate Sodium (Colace) 100 mg THREE TIMES A DAY ORAL 07/27/19 09:00 08/25/19 12:59 07/28/19 09:55 Heparin Sodium (Porcine) (Heparin 5000 units/ml) 5,000 units EVERY 8 HOURS SUBQ 07/26/19 22:00 08/15/19 13:59 Hydralazine HCl (Apresoline) 10 mg Q4H PRN IV bp over 160 syst 07/26/19 19:15 08/15/19 19:14 Hydralazine HCl (Apresoline) 25 mg Q8HR ORAL 07/28/19 14:00 08/18/19 18:29 Metoclopramide HCl (Reglan) 5 mg EVERY 6 HOURS ORAL 07/27/19 00:00 08/21/19 11:59 07/27/19 23:55 Metoclopramide HCl (Reglan) 10 mg Q8H PRN IVP Nausea & Vomiting 07/26/19 19:15 08/20/19 19:14 Nitroglycerin (Ntg) 1 patch Q24H TDERMAL 07/27/19 06:00 08/19/19 05:59 07/27/19 06:17 Pantoprazole (Protonix) 40 mg BID ORAL 07/27/19 09:00 08/25/19 08:59 07/28/19 09:55 Risperidone (RisperDAL) 0.5 mg Q4H PRN ORAL agitation 07/27/19 18:30 08/26/19 18:29 Sennosides (Senokot) 8.6 mg BIDPRN PRN ORAL Constipation 07/26/19 19:15 08/25/19 19:14 Sevelamer Carbonate (Renvela) 2,400 mg Q6HR ORAL 07/27/19 00:00 08/22/19 12:59 07/27/19 23:55 Kala Urbina SLIVER FORMER Jul 28, 2019 13:12
[2019-07-28] MEDS: HydrALAZINE 25mg tab ORAL SCH ×2 (14:00→21:52)
--- NOTE | 2019-07-28 14:36 | Internal Med Progress Note ---
Subjective Date of Service: Jul 28, 2019 Physician Name AnaMichael Attending Physician Zuhair Singleton MD Current Medications Medications (Trade) Dose Ordered Sig/David Route PRN Reason Start Time Stop Time Status Last Admin Dose Admin Acetaminophen (Tylenol) 650 mg Q4H PRN ORAL Fever 07/26/19 19:15 08/15/19 19:14 Acetaminophen (Tylenol) 650 mg Q4H PRN RECTAL FEVER 07/26/19 19:15 08/15/19 19:14 Albuterol/ Ipratropium (Albuterol/ Ipratropium) 3 ml Q4H PRN HHN Shortness of Breath 07/28/19 15:15 08/01/19 15:14 Bacitracin (Bacitracin 15gm tube) 1 applic THREE TIMES A DAY TOPIC 07/27/19 09:00 08/21/19 08:59 07/28/19 13:43 Carvedilol (Coreg) 25 mg EVERY 12 HOURS ORAL 07/26/19 21:00 08/17/19 09:59 07/27/19 22:08 Dextrose (Dextrose 50%) 25 ml Q30M PRN IV Hypoglycemia 07/26/19 19:30 08/15/19 13:59 Dextrose (Dextrose 50%) 50 ml Q30M PRN IV Hypoglycemia 07/26/19 19:30 08/15/19 13:59 Docusate Sodium (Colace) 100 mg THREE TIMES A DAY ORAL 07/27/19 09:00 08/25/19 12:59 07/28/19 13:43 Heparin Sodium (Porcine) (Heparin 5000 units/ml) 5,000 units EVERY 8 HOURS SUBQ 07/26/19 22:00 08/15/19 13:59 Hydralazine HCl (Apresoline) 10 mg Q4H PRN IV bp over 160 syst 07/26/19 19:15 08/15/19 19:14 Hydralazine HCl (Apresoline) 25 mg Q8HR ORAL 07/28/19 14:00 08/18/19 18:29 Metoclopramide HCl (Reglan) 5 mg EVERY 6 HOURS ORAL 07/27/19 00:00 08/21/19 11:59 07/27/19 23:55 Metoclopramide HCl (Reglan) 10 mg Q8H PRN IVP Nausea & Vomiting 07/26/19 19:15 08/20/19 19:14 Nitroglycerin (Ntg) 1 patch Q24H TDERMAL 07/27/19 06:00 08/19/19 05:59 07/27/19 06:17 Pantoprazole (Protonix) 40 mg BID ORAL 07/27/19 09:00 08/25/19 08:59 07/28/19 09:55 Risperidone (RisperDAL) 0.5 mg Q4H PRN ORAL agitation 07/27/19 18:30 08/26/19 18:29 Sennosides (Senokot) 8.6 mg BIDPRN PRN ORAL Constipation 07/26/19 19:15 08/25/19 19:14 Sevelamer Carbonate (Renvela) 2,400 mg Q6HR ORAL 07/27/19 00:00 08/22/19 12:59 07/27/19 23:55 Allergies: Coded Allergies: LISINOPRIL (Verified Allergy, Severe, Shortness of Breath, 07/02/19) THROAT SWELLS UP PENICILLINS (Verified Allergy, Severe, throat swelling, 07/17/19) tolerated Ancef x1 07/16/19 Uncoded Allergies: shellfish (Allergy, Severe, 02/06/19) shortness of breath, vomiting, throat swelling ROS Limited/Unobtainable: No Constitutional: Reports: no symptoms HEENT: Reports: no symptoms Cardiovascular: Reports: no symptoms Respiratory: Reports: no symptoms Gastrointestinal/Abdominal: Reports: no symptoms Genitourinary: Reports: no symptoms Neurologic/Psychiatric: Reports: no symptoms Subjective 49 YO M admitted for scrotal fistulotomy. S/P cardiac arrest. Self extubated . Cover for Int tim-Dr Singleton. PATRICK. Less confused; more alert Objective Last Vital Signs Date Time Temp Pulse Resp B/P (MAP) Pulse Ox O2 Delivery O2 Flow Rate FiO2 07/28/19 12:00 98.2 85 20 135/59 (84) 96 07/28/19 08:55 Room Air 21 07/26/19 20:00 2.0 Laboratory Tests Test 07/28/19 06:40 White Blood Count 7.3 K/UL (4.8-10.8) Red Blood Count 3.17 M/UL (4.70-6.10) L Hemoglobin 10.7 G/DL (14.2-18.0) L Hematocrit 32.9 % (42.0-52.0) L Mean Corpuscular Volume 104 FL (80-99) H Mean Corpuscular Hemoglobin 33.9 PG (27.0-31.0) H Mean Corpuscular Hemoglobin Concent 32.6 G/DL (32.0-36.0) Red Cell Distribution Width 12.9 % (11.6-14.8) Platelet Count 92 K/UL (150-450) L Mean Platelet Volume 10.3 FL (6.5-10.1) H Neutrophils (%) (Auto) % (45.0-75.0) Lymphocytes (%) (Auto) % (20.0-45.0) Monocytes (%) (Auto) % (1.0-10.0) Eosinophils (%) (Auto) % (0.0-3.0) Basophils (%) (Auto) % (0.0-2.0) Differential Total Cells Counted 100 Neutrophils % (Manual) 74 % (45-75) Lymphocytes % (Manual) 18 % (20-45) L Monocytes % (Manual) 8 % (1-10) Eosinophils % (Manual) 0 % (0-3) Basophils % (Manual) 0 % (0-2) Band Neutrophils 0 % (0-8) Platelet Estimate Decreased L Platelet Morphology Normal Hypochromasia 1+ Macrocytosis 1+ Sodium Level 143 MMOL/L (136-145) Potassium Level 4.5 MMOL/L (3.5-5.1) Chloride Level 101 MMOL/L (98-107) Carbon Dioxide Level 35 MMOL/L (21-32) H Anion Gap 7 mmol/L (5-15) Blood Urea Nitrogen 58 mg/dL (7-18) H Creatinine 10.5 MG/DL (0.55-1.30) H Estimat Glomerular Filtration Rate 6.3 mL/min (>60) Glucose Level 83 MG/DL (74-106) Calcium Level 9.6 MG/DL (8.5-10.1) Phosphorus Level 5.7 MG/DL (2.5-4.9) H Magnesium Level 2.4 MG/DL (1.8-2.4) Total Bilirubin 0.6 MG/DL (0.2-1.0) Aspartate Amino Transf (AST/SGOT) 12 U/L (15-37) L Alanine Aminotransferase (ALT/SGPT) 6 U/L (12-78) L Alkaline Phosphatase 82 U/L (46-116) C-Reactive Protein, Quantitative 5.1 mg/dL (0.00-0.90) H Pro-B-Type Natriuretic Peptide 8484 pg/mL (0-125) H Total Protein 7.9 G/DL (6.4-8.2) Albumin 3.0 G/DL (3.4-5.0) L Globulin 4.9 g/dL Albumin/Globulin Ratio 0.6 (1.0-2.7) L Digoxin Level 1.4 NG/ML (0.5-2.0) Intake and Output 07/27/19 07/28/19 19:00 07:00 Intake Total 600 ml 120 ml Balance 600 ml 120 ml Intake Oral 600 ml 120 ml Objective PHYSICAL EXAMINATION: GENERAL: The patient is well-developed well-nourished male, intubated and sedated in the intensive care unit. CHEST: nasal canula; Diffuse coarse breath sounds bilaterally without wheezes CARDIOVASCULAR: Regular rhythm and rate. S1, S2 are normal without murmurs, rubs, or gallops. ABDOMEN: Soft, nontender, nondistended. Positive bowel sounds. No evidence of hepatosplenomegaly. Currently, no rebound or guarding noted. EXTREMITIES: Negative for clubbing, cyanosis, edema. NEUROLOGIC: Unable to assess. Assessment/Plan Assessment/Plan ASSESSMENT: This is a 49-year-old male. 1. Scrotal fistula. 2. Status post cardiac arrest. 3. Renal failure. 4. Hypertension. 5. Gout. 6. End stage renal disease on hemodialysis. 7. Cardiomyopathy 8. Systolic CHF 9. dysphagia 10. Altered mental status TREATMENT: 1. Scrotal fistula. Surgery was aborted on 07/16/2019. Follow recommendations of Surgery, Dr. Galloway. 2. Status post cardiac arrest. The patient is S/P self-extubation 07/18/19. A Cardiology consultation has been obtained with Dr. Emmanuel Cortés. Follow recommendations of Cardiology. 3. End stage renal disease. A Nephrology consultation has been obtained with Dr. Daniel Delgadillo. Hemodialysis 07/22/19. Follow recommendations of Nephrology. 4. Hypertension. 5. Gout. 6. PATRICK status 7. Failed swallow eval-patient pulled out NGT. GI=Dr Delarosa 8. Calorie count in progress 9. Neurology consult=Michael Whiteside MD Jul 28, 2019 14:36
--- NOTE | 2019-07-28 14:57 | Cardiology Progress Note ---
Assessment/Plan Problem List: (1) ESRD (end stage renal disease) (2) Hypertension (3) Cardiac arrest (4) Cardiomyopathy (5) Altered mental status Status: stable, unchanged Status Narrative s/p resuscitated cardiac arrest periop - asystole, followed by VT/VF hx of cardiomyopathy, but w/ nl LV function by most recent echo ESRD , on HD AMS- encephalopathy,c/w anoxic post cardiac arrest Assessment/Plan Continue supportive care. Hydralazine for bp control. Continue telemetry monitoring. No sudheer- or tachyarrhythmias noted . HD per nephrology. Subjective ROS Limited/Unobtainable: Yes Subjective Cardiology for Dr. Cortés Pt alert, responds minimally to questions. No respiratory distress or c/o CP Objective Last 24 Hour Vital Signs Date Time Temp Pulse Resp B/P (MAP) Pulse Ox O2 Delivery O2 Flow Rate FiO2 07/28/19 12:00 98.2 85 20 135/59 (84) 96 07/28/19 10:51 91 07/28/19 09:00 91 164/76 07/28/19 08:55 91 20 97 Room Air 21 07/28/19 08:27 Room Air 07/28/19 08:00 97.8 89 18 164/76 (105) 96 07/28/19 07:53 88 07/28/19 04:00 98.0 68 18 142/58 (86) 96 07/28/19 04:00 91 07/28/19 00:00 98.0 96 20 117/75 (89) 96 07/28/19 00:00 83 07/27/19 22:08 149/78 07/27/19 22:08 96 149/78 07/27/19 21:10 96 21 97 Room Air 21 07/27/19 21:00 Room Air 07/27/19 20:00 98.4 88 20 149/78 (101) 97 07/27/19 20:00 86 07/27/19 16:00 97.7 86 18 122/67 (85) 94 07/27/19 15:32 89 General Appearance: WD/WN, no apparent distress, alert EENT: PERRL/EOMI Neck: supple, no JVD Rhythm: NSR Cardiovascular: normal rate, regular rhythm, no gallop/murmur Respiratory/Chest: lungs clear, other - clear anteriorly Abdomen: non tender, soft Extremities: no swelling, other - L UE AV fistula Neurologic: alert, responsive Intake and Output 07/27/19 07/28/19 18:59 06:59 Intake Total 600 ml 120 ml Balance 600 ml 120 ml Intake Oral 600 ml 120 ml Laboratory Tests Test 07/28/19 06:40 White Blood Count 7.3 K/UL (4.8-10.8) Red Blood Count 3.17 M/UL (4.70-6.10) L Hemoglobin 10.7 G/DL (14.2-18.0) L Hematocrit 32.9 % (42.0-52.0) L Mean Corpuscular Volume 104 FL (80-99) H Mean Corpuscular Hemoglobin 33.9 PG (27.0-31.0) H Mean Corpuscular Hemoglobin Concent 32.6 G/DL (32.0-36.0) Red Cell Distribution Width 12.9 % (11.6-14.8) Platelet Count 92 K/UL (150-450) L Mean Platelet Volume 10.3 FL (6.5-10.1) H Neutrophils (%) (Auto) % (45.0-75.0) Lymphocytes (%) (Auto) % (20.0-45.0) Monocytes (%) (Auto) % (1.0-10.0) Eosinophils (%) (Auto) % (0.0-3.0) Basophils (%) (Auto) % (0.0-2.0) Differential Total Cells Counted 100 Neutrophils % (Manual) 74 % (45-75) Lymphocytes % (Manual) 18 % (20-45) L Monocytes % (Manual) 8 % (1-10) Eosinophils % (Manual) 0 % (0-3) Basophils % (Manual) 0 % (0-2) Band Neutrophils 0 % (0-8) Platelet Estimate Decreased L Platelet Morphology Normal Hypochromasia 1+ Macrocytosis 1+ Sodium Level 143 MMOL/L (136-145) Potassium Level 4.5 MMOL/L (3.5-5.1) Chloride Level 101 MMOL/L (98-107) Carbon Dioxide Level 35 MMOL/L (21-32) H Anion Gap 7 mmol/L (5-15) Blood Urea Nitrogen 58 mg/dL (7-18) H Creatinine 10.5 MG/DL (0.55-1.30) H Estimat Glomerular Filtration Rate 6.3 mL/min (>60) Glucose Level 83 MG/DL (74-106) Calcium Level 9.6 MG/DL (8.5-10.1) Phosphorus Level 5.7 MG/DL (2.5-4.9) H Magnesium Level 2.4 MG/DL (1.8-2.4) Total Bilirubin 0.6 MG/DL (0.2-1.0) Aspartate Amino Transf (AST/SGOT) 12 U/L (15-37) L Alanine Aminotransferase (ALT/SGPT) 6 U/L (12-78) L Alkaline Phosphatase 82 U/L (46-116) C-Reactive Protein, Quantitative 5.1 mg/dL (0.00-0.90) H Pro-B-Type Natriuretic Peptide 8484 pg/mL (0-125) H Total Protein 7.9 G/DL (6.4-8.2) Albumin 3.0 G/DL (3.4-5.0) L Globulin 4.9 g/dL Albumin/Globulin Ratio 0.6 (1.0-2.7) L Digoxin Level 1.4 NG/ML (0.5-2.0) Isis Morales MD Jul 28, 2019 14:57
[2019-07-28] MEDS ORDERED: Albuterol/Ipratropium 3ml neb HHN PRN (15:15)
[2019-07-28 16:00] VITALS: BP 142/73
--- NOTE | 2019-07-28 17:50 | NUR ---
Dialysis is done. Accd to HD nurse Leonardo, 1L was removed. BP 113/44, HR 91.
--- NOTE | 2019-07-28 19:17 | NUR ---
HAND-OFF: Report given to JOCE Foy. Pt in stable condition. Endorsed plan of care.
--- NOTE | 2019-07-28 19:35 | NUR ---
NURSE NOTES: Received report from JOCE Johnson. Patient is in bed, awake and responsive. Breathing regular and unlabored with no s/s of SOB noted at this time. Patient's dialysis access is on the ROYA, post-dialysis. IV access remains on the RFA, 20G, saline locked. Patient remains in restraints, circulation normal, skin intact. Bed is in lowest position, breaks engaged, and call light is within reach. All other needs attended to, patient remains stable, will continue to monitor.
[2019-07-28 20:00] VITALS: BP 142/76
[2019-07-29] VITALS: BP 119/74
[2019-07-29 04:00] VITALS: BP 144/62
[2019-07-29] MEDS: Heparin 5000 units/ml inj SUBQ SCH ×3 (06:00→21:49)
[2019-07-29] MEDS: Nitroglycerin Patch 0.4mg TDERMAL SCH (06:20)
[2019-07-29] MEDS: Metoclopramide 10mg/10ml Liq ORAL SCH ×4 (06:20→17:49)
[2019-07-29] MEDS: Renvela 800mg Pkt ORAL SCH ×4 (06:21→17:41)
[2019-07-29] MEDS: HydrALAZINE 25mg tab ORAL SCH ×3 (06:21→21:50)
--- NOTE | 2019-07-29 07:44 | NUR ---
HAND-OFF: Report given to JOCE Mitchell. Patient in stable condition.
[2019-07-29 08:15] VITALS: BP 127/73
--- NOTE | 2019-07-29 08:20 | NUR ---
NURSE NOTES: pt awake in bed, pt is on restraints. Assisted pt to eat. Pt is on cardiac exercise specialist, no signs of cardiac or respiratory distress. Call light within reach, bed is locked and lowest position. Will continue to follow plans of care.
--- NOTE | 2019-07-29 08:42 | General Progress Note ---
Assessment/Plan Status: stable, unchanged Assessment/Plan: Assessment/Plan Problems: (1) Scrotal lesion ICD Codes: N50.9 - Disorder of male genital organs, unspecified SNOMED: 17437177 (2) Cardiac arrest ICD Codes: I46.9 - Cardiac arrest, cause unspecified SNOMED: 831702263 (3) Anemia ICD Codes: D64.9 - Anemia, unspecified SNOMED: 625846282 (4) Constipation ICD Codes: K59.00 - Constipation, unspecified (5) N/V, TF intolerance Assessment/Plan follow up cardiology recs prn transfusions ppi eating much better will hold NGT or GT feeding plans for now Subjective ROS Limited/Unobtainable: Yes Allergies: Coded Allergies: LISINOPRIL (Verified Allergy, Severe, Shortness of Breath, 07/02/19) THROAT SWELLS UP PENICILLINS (Verified Allergy, Severe, throat swelling, 07/17/19) tolerated Ancef x1 07/16/19 Uncoded Allergies: shellfish (Allergy, Severe, 02/06/19) shortness of breath, vomiting, throat swelling Objective Last 24 Hour Vital Signs Date Time Temp Pulse Resp B/P (MAP) Pulse Ox O2 Delivery O2 Flow Rate FiO2 07/29/19 06:21 141/65 07/29/19 06:20 141/65 07/29/19 04:00 86 07/29/19 04:00 98.3 88 20 144/62 (89) 95 07/29/19 00:00 89 07/29/19 00:00 98.5 81 20 119/74 (89) 95 07/28/19 21:52 143/76 07/28/19 21:52 84 143/76 07/28/19 21:00 Room Air 07/28/19 20:04 92 20 96 Room Air 21 07/28/19 20:00 97.4 106 20 142/76 (98) 95 07/28/19 20:00 99 07/28/19 16:00 98.0 85 20 142/73 (96) 97 07/28/19 15:55 85 07/28/19 12:00 98.2 85 20 135/59 (84) 96 07/28/19 11:40 87 07/28/19 10:51 91 07/28/19 09:00 91 164/76 07/28/19 08:55 91 20 97 Room Air 21 Intake and Output 07/28/19 07/29/19 19:00 07:00 Intake Total 480 ml 160 ml Balance 480 ml 160 ml Intake Oral 480 ml 160 ml Height (Feet): 5 Height (Inches): 5.50 Weight (Pounds): 145 General Appearance: alert EENT: normal ENT inspection Neck: supple Cardiovascular: normal rate Respiratory/Chest: decreased breath sounds Abdomen: normal bowel sounds, non tender, soft Extremities: non-tender Richy Delarosa MD Jul 29, 2019 08:42
--- NOTE | 2019-07-29 09:58 | Pulmonology Progress Note ---
Assessment/Plan Assessment/Plan ASSESSMENT probable aspiration pneumonia , s/p treatment s/p cardiac arrest, asystolic - during surgical procedure acute respiratory failure requiring intubation, self extubated 07/18 cardiomyopathy with EF 20-25% CHF with systolic dysfunction scrotal wound /ruptured epidermal inclusion cyst with associated abscess formation ESRD, on hemodialysis History of hypertension Diabetes mellitus Dysphagia Anemia of chronic kidney disease PLAN OF CARE PATRICK self extubated 07/18 02, HHN as needed abx as per ID -completed Echo with EF 20-25%, elevated LA pressure grade 2 carotid duplex less than 50% stenosis bilaterally guideline directed medical therapy with BB, Isordil and hydralazine (allergic to YELENA) troponin minimally elevated , nonspecific pattern , not suggestive of acute coronary syndrome as per cardio, normalized -possibly due to cardiac arrest attempted excision of nonhealing scrotal wound was aborted due to cardiac arrest status post biopsy ; it showed ruptured epidermal inclusion cyst with associated abscess formation, status post abx HD 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 with close monitoring of volumes and renal parameters, correct electrolytes as needed DVT and GI prophylaxis total assistance with meal with asp precautions GI on board monitor H&H with goal to keep hemoglobin above 7 anemia work-up consistent with anemia of chronic disease stool OB negative dc plan in progress case discussed and evaluated by supervising physician Subjective Allergies: Coded Allergies: LISINOPRIL (Verified Allergy, Severe, Shortness of Breath, 07/02/19) THROAT SWELLS UP PENICILLINS (Verified Allergy, Severe, throat swelling, 07/17/19) tolerated Ancef x1 07/16/19 Uncoded Allergies: shellfish (Allergy, Severe, 02/06/19) shortness of breath, vomiting, throat swelling Subjective afebrile, no signs of resp distress pulse ox stable on RA Objective Last 24 Hour Vital Signs Date Time Temp Pulse Resp B/P (MAP) Pulse Ox O2 Delivery O2 Flow Rate FiO2 07/29/19 09:35 91 20 94 Room Air 21 07/29/19 08:15 98.4 98 18 127/73 (91) 95 07/29/19 06:21 141/65 07/29/19 06:20 141/65 07/29/19 04:00 86 07/29/19 04:00 98.3 88 20 144/62 (89) 95 07/29/19 00:00 89 07/29/19 00:00 98.5 81 20 119/74 (89) 95 07/28/19 21:52 143/76 07/28/19 21:52 84 143/76 07/28/19 21:00 Room Air 07/28/19 20:04 92 20 96 Room Air 21 07/28/19 20:00 97.4 106 20 142/76 (98) 95 07/28/19 20:00 99 07/28/19 16:00 98.0 85 20 142/73 (96) 97 07/28/19 15:55 85 07/28/19 12:00 98.2 85 20 135/59 (84) 96 07/28/19 11:40 87 07/28/19 10:51 91 Intake and Output 07/28/19 07/29/19 19:00 07:00 Intake Total 480 ml 160 ml Balance 480 ml 160 ml Intake Oral 480 ml 160 ml Objective General Appearance: no acute distress HEENT: normocephalic, atraumatic, anicteric Respiratory/Chest: lungs clear, no respiratory distress Cardiovascular: regular rate Abdomen: soft, non tender, non distended Extremities: no edema Skin: no rash Neurologic/Psychiatric: abnormal gait, alert - confused Musculoskeletal: normal muscle bulk Current Medications Medications (Trade) Dose Ordered Sig/David Route PRN Reason Start Time Stop Time Status Last Admin Dose Admin Acetaminophen (Tylenol) 650 mg Q4H PRN ORAL Fever 07/26/19 19:15 08/15/19 19:14 Acetaminophen (Tylenol) 650 mg Q4H PRN RECTAL FEVER 07/26/19 19:15 08/15/19 19:14 Albuterol/ Ipratropium (Albuterol/ Ipratropium) 3 ml Q4H PRN HHN Shortness of Breath 07/28/19 15:15 08/01/19 15:14 Bacitracin (Bacitracin 15gm tube) 1 applic THREE TIMES A DAY TOPIC 07/27/19 09:00 08/21/19 08:59 07/28/19 18:03 Carvedilol (Coreg) 25 mg EVERY 12 HOURS ORAL 07/26/19 21:00 08/17/19 09:59 07/28/19 21:52 Dextrose (Dextrose 50%) 25 ml Q30M PRN IV Hypoglycemia 07/26/19 19:30 08/15/19 13:59 Dextrose (Dextrose 50%) 50 ml Q30M PRN IV Hypoglycemia 07/26/19 19:30 08/15/19 13:59 Docusate Sodium (Colace) 100 mg THREE TIMES A DAY ORAL 07/27/19 09:00 08/25/19 12:59 07/28/19 18:02 Heparin Sodium (Porcine) (Heparin 5000 units/ml) 5,000 units EVERY 8 HOURS SUBQ 07/26/19 22:00 08/15/19 13:59 Hydralazine HCl (Apresoline) 10 mg Q4H PRN IV bp over 160 syst 07/26/19 19:15 08/15/19 19:14 Hydralazine HCl (Apresoline) 25 mg Q8HR ORAL 07/28/19 14:00 08/18/19 18:29 07/29/19 06:21 Metoclopramide HCl (Reglan) 5 mg EVERY 6 HOURS ORAL 07/27/19 00:00 08/21/19 11:59 07/29/19 06:20 Metoclopramide HCl (Reglan) 10 mg Q8H PRN IVP Nausea & Vomiting 07/26/19 19:15 08/20/19 19:14 Nitroglycerin (Ntg) 1 patch Q24H TDERMAL 07/27/19 06:00 08/19/19 05:59 07/29/19 06:20 Pantoprazole (Protonix) 40 mg BID ORAL 07/27/19 09:00 08/25/19 08:59 07/28/19 18:02 Risperidone (RisperDAL) 0.5 mg Q4H PRN ORAL agitation 07/27/19 18:30 08/26/19 18:29 Sennosides (Senokot) 8.6 mg BIDPRN PRN ORAL Constipation 07/26/19 19:15 08/25/19 19:14 Sevelamer Carbonate (Renvela) 2,400 mg Q6HR ORAL 07/27/19 00:00 08/22/19 12:59 07/29/19 06:21 Kala Urbina NP Jul 29, 2019 09:58
[2019-07-29] MEDS: Carvedilol 25mg Tab ORAL SCH ×2 (10:09→21:50)
[2019-07-29] MEDS: Bacitracin Oint 15gm Tube TOPIC SCH ×3 (10:10→17:50)
[2019-07-29] MEDS: Docusate 100mg cap ORAL SCH ×3 (10:11→17:41)
[2019-07-29 11:08] LABS: BASOPHILS % (AUTO) 0.9 % (0.0-2.0); EOSINOPHILS % (AUTO) 3.4 % (0.0-3.0); HEMATOCRIT 33.1 % (42.0-52.0); HEMOGLOBIN 10.8 G/DL (14.2-18.0); LYMPHOCYTES % (AUTO) 18.3 % (20.0-45.0); MEAN CORPUSCULAR VOLUME 104 FL (80-99); MONOCYTES % (AUTO) 10.2 % (1.0-10.0); NEUTROPHILS % (AUTO) 67.2 % (45.0-75.0); PLATELET COUNT 114 K/UL (150-450); RED BLOOD COUNT 3.18 M/UL (4.70-6.10); RED CELL DISTRIBUTION WIDTH 12.4 % (11.6-14.8); WHITE BLOOD COUNT 6.5 K/UL (4.8-10.8)
[2019-07-29 11:29] LABS: ANION GAP 7 mmol/L (5-15); BLOOD UREA NITROGEN 44 mg/dL (7-18); CALCIUM 9.6 MG/DL (8.5-10.1); CARBON DIOXIDE 34 MMOL/L (21-32); CHLORIDE 102 MMOL/L (98-107); CREATININE 8.5 MG/DL (0.55-1.30); POTASSIUM 4.3 MMOL/L (3.5-5.1); SODIUM 143 MMOL/L (136-145)
[2019-07-29 12:00] VITALS: BP 104/55
--- NOTE | 2019-07-29 12:45 | Nephrology Progress Note ---
Assessment/Plan Problem List: (1) ESRD (end stage renal disease) (2) Acute respiratory failure (3) Cardiac arrest (4) Diabetes mellitus (5) Cardiomyopathy Assessment interoperative cardiac arrest Cardiomyopathy and Low ejfx ESRD- high K BP low at this time s/p Asystole in OR Plan MRI of Brain PENDING Neuro Eval Pending dialysis - next 07/30 add Phos binder and adjust dose Digoxin adjust BP meds self extubated 07/[address] eval PRN BP meds adjust bp meds dose HD next 07/28 2D echo noted per orders Subjective ROS Limited/Unobtainable: No Constitutional: Reports: malaise, weakness Objective Objective Last 24 Hour Vital Signs Date Time Temp Pulse Resp B/P (MAP) Pulse Ox O2 Delivery O2 Flow Rate FiO2 07/29/19 10:09 91 127/73 07/29/19 09:35 91 20 94 Room Air 21 07/29/19 09:00 Room Air 07/29/19 08:15 98.4 98 18 127/73 (91) 95 07/29/19 06:21 141/65 07/29/19 06:20 141/65 07/29/19 04:00 86 07/29/19 04:00 98.3 88 20 144/62 (89) 95 07/29/19 00:00 89 07/29/19 00:00 98.5 81 20 119/74 (89) 95 07/28/19 21:52 143/76 07/28/19 21:52 84 143/76 07/28/19 21:00 Room Air 07/28/19 20:04 92 20 96 Room Air 21 07/28/19 20:00 97.4 106 20 142/76 (98) 95 07/28/19 20:00 99 07/28/19 16:00 98.0 85 20 142/73 (96) 97 07/28/19 15:55 85 Intake and Output 07/28/19 07/29/19 19:00 07:00 Intake Total 480 ml 160 ml Balance 480 ml 160 ml Intake Oral 480 ml 160 ml Laboratory Tests 07/29/19 11:00: White Blood Count 6.5, Red Blood Count 3.18L, Hemoglobin 10.8L, Hematocrit 33.1L , Mean Corpuscular Volume 104H, Mean Corpuscular Hemoglobin 33.8H, Mean Corpuscular Hemoglobin Concent 32.5, Red Cell Distribution Width 12.4, Platelet Count 114L, Mean Platelet Volume 10.0, Neutrophils (%) (Auto) 67.2, Lymphocytes (%) (Auto) 18.3L, Monocytes (%) (Auto) 10.2H, Eosinophils (%) (Auto) 3.4H, Basophils (%) (Auto) 0.9, Sodium Level 143, Potassium Level 4.3, Chloride Level 102, Carbon Dioxide Level 34H, Anion Gap 7, Blood Urea Nitrogen 44H, Creatinine 8.5H, Estimat Glomerular Filtration Rate 8.1, Glucose Level 107H, Calcium Level 9.6 Height (Feet): 5 Height (Inches): 5.50 Weight (Pounds): 145 General Appearance: no apparent distress, lethargic, confused Cardiovascular: tachycardia Respiratory/Chest: decreased breath sounds Abdomen: soft Objective no change Daniel Delgadillo MD Jul 29, 2019 12:45
--- NOTE | 2019-07-29 13:28 | Internal Med Progress Note ---
Subjective Date of Service: Jul 29, 2019 Physician Name AnaMichael Attending Physician Zuhair Singleton MD Current Medications Medications (Trade) Dose Ordered Sig/David Route PRN Reason Start Time Stop Time Status Last Admin Dose Admin Acetaminophen (Tylenol) 650 mg Q4H PRN ORAL Fever 07/26/19 19:15 08/15/19 19:14 Acetaminophen (Tylenol) 650 mg Q4H PRN RECTAL FEVER 07/26/19 19:15 08/15/19 19:14 Albuterol/ Ipratropium (Albuterol/ Ipratropium) 3 ml Q4H PRN HHN Shortness of Breath 07/28/19 15:15 08/01/19 15:14 Bacitracin (Bacitracin 15gm tube) 1 applic THREE TIMES A DAY TOPIC 07/27/19 09:00 08/21/19 08:59 07/29/19 12:45 Carvedilol (Coreg) 25 mg EVERY 12 HOURS ORAL 07/26/19 21:00 08/17/19 09:59 07/29/19 10:09 Dextrose (Dextrose 50%) 25 ml Q30M PRN IV Hypoglycemia 07/26/19 19:30 08/15/19 13:59 Dextrose (Dextrose 50%) 50 ml Q30M PRN IV Hypoglycemia 07/26/19 19:30 08/15/19 13:59 Docusate Sodium (Colace) 100 mg THREE TIMES A DAY ORAL 07/27/19 09:00 08/25/19 12:59 07/29/19 12:44 Heparin Sodium (Porcine) (Heparin 5000 units/ml) 5,000 units EVERY 8 HOURS SUBQ 07/26/19 22:00 08/15/19 13:59 Hydralazine HCl (Apresoline) 10 mg Q4H PRN IV bp over 160 syst 07/26/19 19:15 08/15/19 19:14 Hydralazine HCl (Apresoline) 25 mg Q8HR ORAL 07/28/19 14:00 08/18/19 18:29 07/29/19 06:21 Metoclopramide HCl (Reglan) 5 mg EVERY 6 HOURS ORAL 07/27/19 00:00 08/21/19 11:59 07/29/19 12:44 Metoclopramide HCl (Reglan) 10 mg Q8H PRN IVP Nausea & Vomiting 07/26/19 19:15 08/20/19 19:14 Nitroglycerin (Ntg) 1 patch Q24H TDERMAL 07/27/19 06:00 08/19/19 05:59 07/29/19 06:20 Pantoprazole (Protonix) 40 mg BID ORAL 07/27/19 09:00 08/25/19 08:59 07/29/19 10:09 Risperidone (RisperDAL) 0.5 mg Q4H PRN ORAL agitation 07/27/19 18:30 08/26/19 18:29 Sennosides (Senokot) 8.6 mg BIDPRN PRN ORAL Constipation 07/26/19 19:15 08/25/19 19:14 Sevelamer Carbonate (Renvela) 2,400 mg Q6HR ORAL 07/27/19 00:00 08/22/19 12:59 07/29/19 12:44 Allergies: Coded Allergies: LISINOPRIL (Verified Allergy, Severe, Shortness of Breath, 07/02/19) THROAT SWELLS UP PENICILLINS (Verified Allergy, Severe, throat swelling, 07/17/19) tolerated Ancef x1 07/16/19 Uncoded Allergies: shellfish (Allergy, Severe, 02/06/19) shortness of breath, vomiting, throat swelling ROS Limited/Unobtainable: No Constitutional: Reports: no symptoms HEENT: Reports: no symptoms Cardiovascular: Reports: no symptoms Respiratory: Reports: no symptoms Gastrointestinal/Abdominal: Reports: no symptoms Genitourinary: Reports: no symptoms Neurologic/Psychiatric: Reports: no symptoms Subjective 49 YO M admitted for scrotal fistulotomy. S/P cardiac arrest. Self extubated . Cover for Sonia Singleton. Less confused; more alert Objective Last Vital Signs Date Time Temp Pulse Resp B/P (MAP) Pulse Ox O2 Delivery O2 Flow Rate FiO2 07/29/19 10:09 91 127/73 07/29/19 09:35 20 94 Room Air 21 07/29/19 08:15 98.4 07/26/19 20:00 2.0 Laboratory Tests Test 07/29/19 11:00 White Blood Count 6.5 K/UL (4.8-10.8) Red Blood Count 3.18 M/UL (4.70-6.10) L Hemoglobin 10.8 G/DL (14.2-18.0) L Hematocrit 33.1 % (42.0-52.0) L Mean Corpuscular Volume 104 FL (80-99) H Mean Corpuscular Hemoglobin 33.8 PG (27.0-31.0) H Mean Corpuscular Hemoglobin Concent 32.5 G/DL (32.0-36.0) Red Cell Distribution Width 12.4 % (11.6-14.8) Platelet Count 114 K/UL (150-450) L Mean Platelet Volume 10.0 FL (6.5-10.1) Neutrophils (%) (Auto) 67.2 % (45.0-75.0) Lymphocytes (%) (Auto) 18.3 % (20.0-45.0) L Monocytes (%) (Auto) 10.2 % (1.0-10.0) H Eosinophils (%) (Auto) 3.4 % (0.0-3.0) H Basophils (%) (Auto) 0.9 % (0.0-2.0) Sodium Level 143 MMOL/L (136-145) Potassium Level 4.3 MMOL/L (3.5-5.1) Chloride Level 102 MMOL/L (98-107) Carbon Dioxide Level 34 MMOL/L (21-32) H Anion Gap 7 mmol/L (5-15) Blood Urea Nitrogen 44 mg/dL (7-18) H Creatinine 8.5 MG/DL (0.55-1.30) H Estimat Glomerular Filtration Rate 8.1 mL/min (>60) Glucose Level 107 MG/DL (74-106) H Calcium Level 9.6 MG/DL (8.5-10.1) Intake and Output 07/28/19 07/29/19 19:00 07:00 Intake Total 480 ml 160 ml Balance 480 ml 160 ml Intake Oral 480 ml 160 ml Objective PHYSICAL EXAMINATION: GENERAL: The patient is well-developed well-nourished male, intubated and sedated in the intensive care unit. CHEST: nasal canula; Diffuse coarse breath sounds bilaterally without wheezes CARDIOVASCULAR: Regular rhythm and rate. S1, S2 are normal without murmurs, rubs, or gallops. ABDOMEN: Soft, nontender, nondistended. Positive bowel sounds. No evidence of hepatosplenomegaly. Currently, no rebound or guarding noted. EXTREMITIES: Negative for clubbing, cyanosis, edema. NEUROLOGIC: Unable to assess. Assessment/Plan Assessment/Plan ASSESSMENT: This is a 49-year-old male. 1. Scrotal fistula. 2. Status post cardiac arrest. 3. Renal failure. 4. Hypertension. 5. Gout. 6. End stage renal disease on hemodialysis. 7. Cardiomyopathy 8. Systolic CHF 9. dysphagia 10. Altered mental status TREATMENT: 1. Scrotal fistula. Surgery was aborted on 07/16/2019. Follow recommendations of Surgery, Dr. Galloway. 2. Status post cardiac arrest. The patient is S/P self-extubation 07/18/19. A Cardiology consultation has been obtained with Dr. Emmanuel Cortés. Follow recommendations of Cardiology. 3. End stage renal disease. A Nephrology consultation has been obtained with Dr. Daniel Delgadillo. Hemodialysis 07/22/19. Follow recommendations of Nephrology. 4. Hypertension. 5. Gout. 6. PATRICK status 7. Failed swallow eval-patient pulled out NGT. GI=Dr Delarosa 8. Calorie count in progress 9. Neurology consult=Michael Whiteside MD Jul 29, 2019 13:28
--- NOTE | 2019-07-29 14:47 | Cardiology Progress Note ---
Assessment/Plan Problem List: (1) ESRD (end stage renal disease) (2) Hypertension (3) Cardiac arrest (4) Cardiomyopathy Assessment & Plan: EF 20s immediately post arrest, but now improved to 55% ( repeat echo 2.)_ (5) Altered mental status Status: stable, progressing Status Narrative s/p resuscitated cardiac arrest periop - asystole, followed by VT/VF hx of cardiomyopathy, but w/ nl LV function by most repeat echo ESRD , on HD AMS- encephalopathy,improving Assessment/Plan Continue supportive care. ? PT/ OT evaluation for rehab post- resuscitated cardiac arrest, anoxic encephalopathy Continue telemetry monitoring. No sudheer- or tachyarrhythmias noted . HD per nephrology. Subjective ROS Limited/Unobtainable: No Subjective Cardiology for Dr. Cortés Pt is more alert/ responsive today. He remains oriented to person only. Objective Last 24 Hour Vital Signs Date Time Temp Pulse Resp B/P (MAP) Pulse Ox O2 Delivery O2 Flow Rate FiO2 07/29/19 12:00 98.0 89 19 104/55 (71) 93 07/29/19 12:00 87 07/29/19 10:09 91 127/73 07/29/19 09:35 91 20 94 Room Air 21 07/29/19 09:00 Room Air 07/29/19 08:15 98.4 98 18 127/73 (91) 95 07/29/19 08:00 94 07/29/19 06:21 141/65 07/29/19 06:20 141/65 07/29/19 04:00 86 07/29/19 04:00 98.3 88 20 144/62 (89) 95 07/29/19 00:00 89 07/29/19 00:00 98.5 81 20 119/74 (89) 95 07/28/19 21:52 143/76 07/28/19 21:52 84 143/76 07/28/19 21:00 Room Air 07/28/19 20:04 92 20 96 Room Air 21 07/28/19 20:00 97.4 106 20 142/76 (98) 95 07/28/19 20:00 99 07/28/19 16:00 98.0 85 20 142/73 (96) 97 07/28/19 15:55 85 General Appearance: WD/WN, no apparent distress, alert EENT: PERRL/EOMI Neck: supple, no JVD Rhythm: NSR Cardiovascular: normal peripheral pulses, normal rate, regular rhythm, systolic murmur Respiratory/Chest: other - bilat scattered rhonchi Abdomen: non tender, soft Extremities: no swelling Neurologic: alert, responsive, other - o x1 . moves all extremities Intake and Output 07/28/19 07/29/19 19:00 07:00 Intake Total 480 ml 160 ml Balance 480 ml 160 ml Intake Oral 480 ml 160 ml Laboratory Tests Test 07/29/19 11:00 White Blood Count 6.5 K/UL (4.8-10.8) Red Blood Count 3.18 M/UL (4.70-6.10) L Hemoglobin 10.8 G/DL (14.2-18.0) L Hematocrit 33.1 % (42.0-52.0) L Mean Corpuscular Volume 104 FL (80-99) H Mean Corpuscular Hemoglobin 33.8 PG (27.0-31.0) H Mean Corpuscular Hemoglobin Concent 32.5 G/DL (32.0-36.0) Red Cell Distribution Width 12.4 % (11.6-14.8) Platelet Count 114 K/UL (150-450) L Mean Platelet Volume 10.0 FL (6.5-10.1) Neutrophils (%) (Auto) 67.2 % (45.0-75.0) Lymphocytes (%) (Auto) 18.3 % (20.0-45.0) L Monocytes (%) (Auto) 10.2 % (1.0-10.0) H Eosinophils (%) (Auto) 3.4 % (0.0-3.0) H Basophils (%) (Auto) 0.9 % (0.0-2.0) Sodium Level 143 MMOL/L (136-145) Potassium Level 4.3 MMOL/L (3.5-5.1) Chloride Level 102 MMOL/L (98-107) Carbon Dioxide Level 34 MMOL/L (21-32) H Anion Gap 7 mmol/L (5-15) Blood Urea Nitrogen 44 mg/dL (7-18) H Creatinine 8.5 MG/DL (0.55-1.30) H Estimat Glomerular Filtration Rate 8.1 mL/min (>60) Glucose Level 107 MG/DL (74-106) H Calcium Level 9.6 MG/DL (8.5-10.1) Isis Morales MD Jul 29, 2019 14:47
[2019-07-29 15:16] VITALS: BP 101/51
--- NOTE | 2019-07-29 19:48 | NUR ---
HAND-OFF: Report given to Bruna/JOCE pt in stable condition.
--- NOTE | 2019-07-29 19:50 | NUR ---
NURSE NOTES: Pt is awake in bed, resting, HOB elevated for aspiration precautions. pt is on restraints. Repositioned pt. Dressing on R groin clean, dry and intact. IV patent. No signs of cardiac or respiratory distress. Call light within reach, bed is locked and lowest position, bed alarm on. Will continue to follow plans of care and monitor pt.
--- NOTE | 2019-07-29 19:58 | NUR ---
NURSE NOTES: Called RT as pt has rhonchi bilaterally, all lobes, repositioned and awaiting RT to see pt.
[2019-07-29 20:00] VITALS: BP 134/73
[2019-07-30] VITALS: BP 140/79
[2019-07-30 04:00] VITALS: BP 150/75
[2019-07-30] MEDS: Heparin 5000 units/ml inj SUBQ SCH ×3 (06:00→21:42)
[2019-07-30] MEDS: Metoclopramide 10mg/10ml Liq ORAL SCH ×4 (06:37→17:53)
[2019-07-30] MEDS: HydrALAZINE 25mg tab ORAL SCH ×3 (06:37→21:42)
[2019-07-30] MEDS: Nitroglycerin Patch 0.4mg TDERMAL SCH (06:37)
[2019-07-30] MEDS: Renvela 800mg Pkt ORAL SCH ×4 (06:38→17:54)
[2019-07-30 07:25] LABS: BASOPHILS % (AUTO) 0.8 % (0.0-2.0); EOSINOPHILS % (AUTO) 3.9 % (0.0-3.0); HEMATOCRIT 32.5 % (42.0-52.0); HEMOGLOBIN 10.9 G/DL (14.2-18.0); LYMPHOCYTES % (AUTO) 19.3 % (20.0-45.0); MEAN CORPUSCULAR VOLUME 103 FL (80-99); MONOCYTES % (AUTO) 9.2 % (1.0-10.0); NEUTROPHILS % (AUTO) 66.7 % (45.0-75.0); PLATELET COUNT 108 K/UL (150-450); RED BLOOD COUNT 3.17 M/UL (4.70-6.10); RED CELL DISTRIBUTION WIDTH 12.2 % (11.6-14.8); WHITE BLOOD COUNT 6.1 K/UL (4.8-10.8)
--- NOTE | 2019-07-30 07:30 | NUR ---
NURSE NOTES: Received pt from [facility], Pt is awake and alert, pt is in RA, no SOB or acute respiratory distress noted. Pt has intact iv access RFA 20G SL. No complain of pain at this moment. A STACK SUPERVISOR is feeding pt. Pt is on continues heart monitoring. all needs attended, bed is locked and is in the lowest position, call light within easy reach. will continue to monitor.
[2019-07-30 07:45] LABS: ANION GAP 6 mmol/L (5-15); BLOOD UREA NITROGEN 56 mg/dL (7-18); CALCIUM 9.1 MG/DL (8.5-10.1); CARBON DIOXIDE 35 MMOL/L (21-32); CHLORIDE 101 MMOL/L (98-107); CREATININE 9.9 MG/DL (0.55-1.30); POTASSIUM 4.5 MMOL/L (3.5-5.1); SODIUM 142 MMOL/L (136-145)
--- NOTE | 2019-07-30 07:53 | NUR ---
HAND-OFF: Report given to JOCE Rasmussen.
[2019-07-30 08:00] VITALS: BP 130/61
[2019-07-30] MEDS: Docusate 100mg cap ORAL SCH ×3 (08:35→17:54)
[2019-07-30] MEDS: Sennosides 8.6mg tab ORAL PRN (08:35)
[2019-07-30] MEDS: Carvedilol 25mg Tab ORAL SCH ×2 (08:35→21:42)
[2019-07-30] MEDS: Bacitracin Oint 15gm Tube TOPIC SCH ×3 (08:36→17:54)
--- NOTE | 2019-07-30 08:37 | NUR ---
NURSE NOTES: 0.5 mg risperidone was wasted in med room.
--- NOTE | 2019-07-30 08:59 | Nephrology Progress Note ---
Assessment/Plan Problem List: (1) ESRD (end stage renal disease) (2) Acute respiratory failure (3) Cardiac arrest (4) Diabetes mellitus (5) Cardiomyopathy Assessment interoperative cardiac arrest Cardiomyopathy and Low ejfx ESRD- high K BP low at this time s/p Asystole in OR Plan MRI of Brain PENDING Neuro Eval Pending dialysis - next 07/30 add Phos binder and adjust dose Digoxin adjust BP meds self extubated 07/[address] eval PRN BP meds adjust bp meds dose HD next 07/28 2D echo noted per orders Subjective ROS Limited/Unobtainable: No Constitutional: Reports: malaise Objective Objective Last 24 Hour Vital Signs Date Time Temp Pulse Resp B/P (MAP) Pulse Ox O2 Delivery O2 Flow Rate FiO2 07/30/19 08:35 67 130/61 07/30/19 08:00 96.4 67 20 130/61 (84) 98 07/30/19 06:37 150/75 07/30/19 06:37 150/75 07/30/19 05:48 Room Air 07/30/19 04:00 87 07/30/19 04:00 96.6 77 16 150/75 (100) 94 07/30/19 00:00 86 07/30/19 00:00 96.8 86 20 140/79 (99) 98 07/29/19 21:50 134/73 07/29/19 21:50 83 134/73 07/29/19 21:00 Room Air 07/29/19 20:06 83 20 95 Room Air 21 07/29/19 20:00 88 07/29/19 20:00 97.0 73 15 134/73 (93) 92 07/29/19 16:00 85 07/29/19 15:16 86 101/51 (68) 07/29/19 14:00 101/51 07/29/19 12:00 98.0 89 19 104/55 (71) 93 07/29/19 12:00 87 07/29/19 10:09 91 127/73 07/29/19 09:35 91 20 94 Room Air 21 07/29/19 09:00 Room Air Intake and Output 07/29/19 07/30/19 19:00 07:00 Intake Total 610 ml Balance 610 ml Intake Oral 610 ml # Voids 2 2 Current Medications Medications (Trade) Dose Ordered Sig/David Route PRN Reason Start Time Stop Time Status Last Admin Dose Admin Acetaminophen (Tylenol) 650 mg Q4H PRN ORAL Fever 07/26/19 19:15 08/15/19 19:14 Acetaminophen (Tylenol) 650 mg Q4H PRN RECTAL FEVER 07/26/19 19:15 08/15/19 19:14 Albuterol/ Ipratropium (Albuterol/ Ipratropium) 3 ml Q4H PRN HHN Shortness of Breath 07/28/19 15:15 08/01/19 15:14 Bacitracin (Bacitracin 15gm tube) 1 applic THREE TIMES A DAY TOPIC 07/27/19 09:00 08/21/19 08:59 07/30/19 08:36 Carvedilol (Coreg) 25 mg EVERY 12 HOURS ORAL 07/26/19 21:00 08/17/19 09:59 07/30/19 08:35 Dextrose (Dextrose 50%) 25 ml Q30M PRN IV Hypoglycemia 07/26/19 19:30 08/15/19 13:59 Dextrose (Dextrose 50%) 50 ml Q30M PRN IV Hypoglycemia 07/26/19 19:30 08/15/19 13:59 Docusate Sodium (Colace) 100 mg THREE TIMES A DAY ORAL 07/27/19 09:00 08/25/19 12:59 07/30/19 08:35 Heparin Sodium (Porcine) (Heparin 5000 units/ml) 5,000 units EVERY 8 HOURS SUBQ 07/26/19 22:00 08/15/19 13:59 Hydralazine HCl (Apresoline) 10 mg Q4H PRN IV bp over 160 syst 07/26/19 19:15 08/15/19 19:14 Hydralazine HCl (Apresoline) 25 mg Q8HR ORAL 07/28/19 14:00 08/18/19 18:29 07/30/19 06:37 Metoclopramide HCl (Reglan) 5 mg EVERY 6 HOURS ORAL 07/27/19 00:00 08/21/19 11:59 07/30/19 06:37 Metoclopramide HCl (Reglan) 10 mg Q8H PRN IVP Nausea & Vomiting 07/26/19 19:15 08/20/19 19:14 Nitroglycerin (Ntg) 1 patch Q24H TDERMAL 07/27/19 06:00 08/19/19 05:59 07/30/19 06:37 Pantoprazole (Protonix) 40 mg BID ORAL 07/27/19 09:00 08/25/19 08:59 07/30/19 08:36 Risperidone (RisperDAL) 0.5 mg Q4H PRN ORAL agitation 07/27/19 18:30 08/26/19 18:29 07/30/19 08:36 Sennosides (Senokot) 8.6 mg BIDPRN PRN ORAL Constipation 07/26/19 19:15 08/25/19 19:14 07/30/19 08:35 Sevelamer Carbonate (Renvela) 2,400 mg Q6HR ORAL 07/27/19 00:00 08/22/19 12:59 07/30/19 06:38 Laboratory Tests 07/29/19 11:00: White Blood Count 6.5, Red Blood Count 3.18L, Hemoglobin 10.8L, Hematocrit 33.1L , Mean Corpuscular Volume 104H, Mean Corpuscular Hemoglobin 33.8H, Mean Corpuscular Hemoglobin Concent 32.5, Red Cell Distribution Width 12.4, Platelet Count 114L, Mean Platelet Volume 10.0, Neutrophils (%) (Auto) 67.2, Lymphocytes (%) (Auto) 18.3L, Monocytes (%) (Auto) 10.2H, Eosinophils (%) (Auto) 3.4H, Basophils (%) (Auto) 0.9, Sodium Level 143, Potassium Level 4.3, Chloride Level 102, Carbon Dioxide Level 34H, Anion Gap 7, Blood Urea Nitrogen 44H, Creatinine 8.5H, Estimat Glomerular Filtration Rate 8.1, Glucose Level 107H, Calcium Level 9.6 07/30/19 06:30: White Blood Count 6.1, Red Blood Count 3.17L, Hemoglobin 10.9L, Hematocrit 32.5L , Mean Corpuscular Volume 103H, Mean Corpuscular Hemoglobin 34.4H, Mean Corpuscular Hemoglobin Concent 33.5, Red Cell Distribution Width 12.2, Platelet Count 108L, Mean Platelet Volume 9.7, Neutrophils (%) (Auto) 66.7, Lymphocytes ( %) (Auto) 19.3L, Monocytes (%) (Auto) 9.2, Eosinophils (%) (Auto) 3.9H, Basophils (%) (Auto) 0.8, Sodium Level 142, Potassium Level 4.5, Chloride Level 101, Carbon Dioxide Level 35H, Anion Gap 6, Blood Urea Nitrogen 56H, Creatinine 9.9H, Estimat Glomerular Filtration Rate 6.8, Glucose Level 89, Calcium Level 9.1 Height (Feet): 5 Height (Inches): 5.50 Weight (Pounds): 144 General Appearance: no apparent distress, lethargic, confused Objective no change Daniel Delgadillo MD Jul 30, 2019 08:59
--- NOTE | 2019-07-30 09:04 | General Progress Note ---
Assessment/Plan Status: stable, progressing Assessment/Plan: Assessment/Plan Problems: (1) Scrotal lesion ICD Codes: N50.9 - Disorder of male genital organs, unspecified SNOMED: 92748020 (2) Cardiac arrest ICD Codes: I46.9 - Cardiac arrest, cause unspecified SNOMED: 729340375 (3) Anemia ICD Codes: D64.9 - Anemia, unspecified SNOMED: 170318415 (4) Constipation ICD Codes: K59.00 - Constipation, unspecified (5) N/V, TF intolerance Assessment/Plan follow up cardiology recs prn transfusions HD per nephrology ppi eating much better will hold NGT or GT feeding plans for now Subjective ROS Limited/Unobtainable: No Allergies: Coded Allergies: LISINOPRIL (Verified Allergy, Severe, Shortness of Breath, 07/02/19) THROAT SWELLS UP PENICILLINS (Verified Allergy, Severe, throat swelling, 07/17/19) tolerated Ancef x1 07/16/19 Uncoded Allergies: shellfish (Allergy, Severe, 02/06/19) shortness of breath, vomiting, throat swelling Objective Last 24 Hour Vital Signs Date Time Temp Pulse Resp B/P (MAP) Pulse Ox O2 Delivery O2 Flow Rate FiO2 07/30/19 08:35 67 130/61 07/30/19 08:00 96.4 67 20 130/61 (84) 98 07/30/19 06:37 150/75 07/30/19 06:37 150/75 07/30/19 05:48 Room Air 07/30/19 04:00 87 07/30/19 04:00 96.6 77 16 150/75 (100) 94 07/30/19 00:00 86 07/30/19 00:00 96.8 86 20 140/79 (99) 98 07/29/19 21:50 134/73 07/29/19 21:50 83 134/73 07/29/19 21:00 Room Air 07/29/19 20:06 83 20 95 Room Air 21 07/29/19 20:00 88 07/29/19 20:00 97.0 73 15 134/73 (93) 92 07/29/19 16:00 85 07/29/19 15:16 86 101/51 (68) 07/29/19 14:00 101/51 07/29/19 12:00 98.0 89 19 104/55 (71) 93 07/29/19 12:00 87 07/29/19 10:09 91 127/73 07/29/19 09:35 91 20 94 Room Air 21 Intake and Output 07/29/19 07/30/19 19:00 07:00 Intake Total 610 ml Balance 610 ml Intake Oral 610 ml # Voids 2 2 Laboratory Tests 07/29/19 11:00: White Blood Count 6.5, Red Blood Count 3.18L, Hemoglobin 10.8L, Hematocrit 33.1L , Mean Corpuscular Volume 104H, Mean Corpuscular Hemoglobin 33.8H, Mean Corpuscular Hemoglobin Concent 32.5, Red Cell Distribution Width 12.4, Platelet Count 114L, Mean Platelet Volume 10.0, Neutrophils (%) (Auto) 67.2, Lymphocytes (%) (Auto) 18.3L, Monocytes (%) (Auto) 10.2H, Eosinophils (%) (Auto) 3.4H, Basophils (%) (Auto) 0.9, Sodium Level 143, Potassium Level 4.3, Chloride Level 102, Carbon Dioxide Level 34H, Anion Gap 7, Blood Urea Nitrogen 44H, Creatinine 8.5H, Estimat Glomerular Filtration Rate 8.1, Glucose Level 107H, Calcium Level 9.6 07/30/19 06:30: White Blood Count 6.1, Red Blood Count 3.17L, Hemoglobin 10.9L, Hematocrit 32.5L , Mean Corpuscular Volume 103H, Mean Corpuscular Hemoglobin 34.4H, Mean Corpuscular Hemoglobin Concent 33.5, Red Cell Distribution Width 12.2, Platelet Count 108L, Mean Platelet Volume 9.7, Neutrophils (%) (Auto) 66.7, Lymphocytes ( %) (Auto) 19.3L, Monocytes (%) (Auto) 9.2, Eosinophils (%) (Auto) 3.9H, Basophils (%) (Auto) 0.8, Sodium Level 142, Potassium Level 4.5, Chloride Level 101, Carbon Dioxide Level 35H, Anion Gap 6, Blood Urea Nitrogen 56H, Creatinine 9.9H, Estimat Glomerular Filtration Rate 6.8, Glucose Level 89, Calcium Level 9.1 Height (Feet): 5 Height (Inches): 5.50 Weight (Pounds): 144 General Appearance: lethargic EENT: normal ENT inspection Neck: supple Cardiovascular: normal rate Respiratory/Chest: lungs clear Abdomen: normal bowel sounds, non tender, soft Extremities: non-tender Richy Delarosa MD Jul 30, 2019 09:04
--- NOTE | 2019-07-30 10:54 | NUR ---
Concerning MRI, pt unable to stay asleep, even with sedation. Pt was asleep, but awoke during scan and was crawling out of scanner. Pt mentally altered. RN Afgarrett stated she will contact Dr. Delgadillo. meenu 10:53
--- NOTE | 2019-07-30 11:29 | NUR ---
NURSE NOTES: Dr DINH and KATHY are aware about no MRI, no new order to RN. Will continue to monitor.
--- NOTE | 2019-07-30 11:59 | Pulmonology Progress Note ---
Assessment/Plan Problems: (1) Cardiac arrest (2) Acute respiratory failure (3) ESRD (end stage renal disease) (4) Diabetes mellitus (5) Cardiomyopathy (6) Hypertension Assessment/Plan according to Physical Therapist, pt would benefit from acute rehab HD by nephrology monitor BP titrate cardiac meds sliding scale diabetic diet MRI of brain pending Subjective ROS Limited/Unobtainable: No Constitutional: Reports: no symptoms HEENT: Repors: no symptoms Respiratory: Reports: no symptoms Allergies: Coded Allergies: LISINOPRIL (Verified Allergy, Severe, Shortness of Breath, 07/02/19) THROAT SWELLS UP PENICILLINS (Verified Allergy, Severe, throat swelling, 07/17/19) tolerated Ancef x1 07/16/19 Uncoded Allergies: shellfish (Allergy, Severe, 02/06/19) shortness of breath, vomiting, throat swelling Objective Last 24 Hour Vital Signs Date Time Temp Pulse Resp B/P (MAP) Pulse Ox O2 Delivery O2 Flow Rate FiO2 07/30/19 09:00 Room Air 07/30/19 08:35 67 130/61 07/30/19 08:00 96.4 67 20 130/61 (84) 98 07/30/19 07:43 83 07/30/19 06:37 150/75 07/30/19 06:37 150/75 07/30/19 05:48 Room Air 07/30/19 04:00 87 07/30/19 04:00 96.6 77 16 150/75 (100) 94 07/30/19 00:00 86 07/30/19 00:00 96.8 86 20 140/79 (99) 98 07/29/19 21:50 134/73 07/29/19 21:50 83 134/73 07/29/19 21:00 Room Air 07/29/19 20:06 83 20 95 Room Air 21 07/29/19 20:00 88 07/29/19 20:00 97.0 73 15 134/73 (93) 92 07/29/19 16:00 85 07/29/19 15:16 86 101/51 (68) 07/29/19 14:00 101/51 07/29/19 12:00 98.0 89 19 104/55 (71) 93 07/29/19 12:00 87 Intake and Output 07/29/19 07/30/19 19:00 07:00 Intake Total 610 ml Balance 610 ml Intake Oral 610 ml # Voids 2 2 General Appearance: WD/WN HEENT: normocephalic, atraumatic Respiratory/Chest: chest wall non-tender, lungs clear Cardiovascular: normal peripheral pulses, normal rate Abdomen: normal bowel sounds, soft, non tender Genitourinary: normal external genitalia Skin: no rash Neurologic/Psychiatric: performance specialist II-XII grossly normal Lymphatic: no neck adenopathy Laboratory Tests 07/30/19 06:30: White Blood Count 6.1, Red Blood Count 3.17L, Hemoglobin 10.9L, Hematocrit 32.5L , Mean Corpuscular Volume 103H, Mean Corpuscular Hemoglobin 34.4H, Mean Corpuscular Hemoglobin Concent 33.5, Red Cell Distribution Width 12.2, Platelet Count 108L, Mean Platelet Volume 9.7, Neutrophils (%) (Auto) 66.7, Lymphocytes ( %) (Auto) 19.3L, Monocytes (%) (Auto) 9.2, Eosinophils (%) (Auto) 3.9H, Basophils (%) (Auto) 0.8, Sodium Level 142, Potassium Level 4.5, Chloride Level 101, Carbon Dioxide Level 35H, Anion Gap 6, Blood Urea Nitrogen 56H, Creatinine 9.9H, Estimat Glomerular Filtration Rate 6.8, Glucose Level 89, Calcium Level 9.1 Current Medications Medications (Trade) Dose Ordered Sig/David Route PRN Reason Start Time Stop Time Status Last Admin Dose Admin Acetaminophen (Tylenol) 650 mg Q4H PRN ORAL Fever 07/26/19 19:15 08/15/19 19:14 Acetaminophen (Tylenol) 650 mg Q4H PRN RECTAL FEVER 07/26/19 19:15 08/15/19 19:14 Albuterol/ Ipratropium (Albuterol/ Ipratropium) 3 ml Q4H PRN HHN Shortness of Breath 07/28/19 15:15 08/01/19 15:14 Bacitracin (Bacitracin 15gm tube) 1 applic THREE TIMES A DAY TOPIC 07/27/19 09:00 08/21/19 08:59 07/30/19 08:36 Carvedilol (Coreg) 25 mg EVERY 12 HOURS ORAL 07/26/19 21:00 08/17/19 09:59 07/30/19 08:35 Dextrose (Dextrose 50%) 25 ml Q30M PRN IV Hypoglycemia 07/26/19 19:30 08/15/19 13:59 Dextrose (Dextrose 50%) 50 ml Q30M PRN IV Hypoglycemia 07/26/19 19:30 08/15/19 13:59 Docusate Sodium (Colace) 100 mg THREE TIMES A DAY ORAL 07/27/19 09:00 08/25/19 12:59 07/30/19 08:35 Heparin Sodium (Porcine) (Heparin 5000 units/ml) 5,000 units EVERY 8 HOURS SUBQ 07/26/19 22:00 08/15/19 13:59 Hydralazine HCl (Apresoline) 10 mg Q4H PRN IV bp over 160 syst 07/26/19 19:15 08/15/19 19:14 Hydralazine HCl (Apresoline) 25 mg Q8HR ORAL 07/28/19 14:00 08/18/19 18:29 07/30/19 06:37 Metoclopramide HCl (Reglan) 5 mg EVERY 6 HOURS ORAL 07/27/19 00:00 08/21/19 11:59 07/30/19 06:37 Metoclopramide HCl (Reglan) 10 mg Q8H PRN IVP Nausea & Vomiting 07/26/19 19:15 08/20/19 19:14 Nitroglycerin (Ntg) 1 patch Q24H TDERMAL 07/27/19 06:00 08/19/19 05:59 07/30/19 06:37 Pantoprazole (Protonix) 40 mg BID ORAL 07/27/19 09:00 08/25/19 08:59 07/30/19 08:36 Risperidone (RisperDAL) 0.5 mg Q4H PRN ORAL agitation 07/27/19 18:30 08/26/19 18:29 07/30/19 08:36 Sennosides (Senokot) 8.6 mg BIDPRN PRN ORAL Constipation 07/26/19 19:15 08/25/19 19:14 07/30/19 08:35 Sevelamer Carbonate (Renvela) 2,400 mg Q6HR ORAL 07/27/19 00:00 08/22/19 12:59 07/30/19 06:38 Juan Carlos Soto MD Jul 30, 2019 11:59
[2019-07-30 12:00] VITALS: BP 128/69
--- NOTE | 2019-07-30 12:53 | Infectious Diseases Prog Note ---
Assessment/Plan Assessment/Plan Assessment: Probable aspiration PNA, sp rx -07/20 CXR: Mild pulmonary vascular congestion suspected. Bilateral pleural effusions. -07/17 CXR: Bilateral pleural effusion and mild interstitial congestion and hazy parenchymal opacity present. Cardiac arrest asystole during surgical procedure -07/16 CXR: pulmonary edema Non healing scrotal wound; bx showed: ruptured epidermal inclusion cyst with associated abscess formation -07/16 sp attempted excision but procedure aborted due to cardiac arrest VDRF 07/16; extubated 07/18 Afebrile Mild leukocytosis, SP ESRD on HD via L arm AVF Dm2 HTN internal hemorrhoids Plan: -Cont to monitor off abx -07/23 SP LEvaquin #7 -07/16 SP Ancef x1 -f/u cx -Monitor CBC/CMP, temperatures -aspiration precautions -wound care per surgical team -Sx, Neprho, pulm f/u Thank you for this consultation. Will continue to follow along with you. Discussed with RN Subjective Allergies: Coded Allergies: LISINOPRIL (Verified Allergy, Severe, Shortness of Breath, 07/02/19) THROAT SWELLS UP PENICILLINS (Verified Allergy, Severe, throat swelling, 07/17/19) tolerated Ancef x1 07/16/19 Uncoded Allergies: shellfish (Allergy, Severe, 02/06/19) shortness of breath, vomiting, throat swelling Subjective afebrile no leukocytosis at RA off abx Objective Vital Signs Last 24 Hour Vital Signs Date Time Temp Pulse Resp B/P (MAP) Pulse Ox O2 Delivery O2 Flow Rate FiO2 07/30/19 09:00 Room Air 07/30/19 08:35 67 130/61 07/30/19 08:00 96.4 67 20 130/61 (84) 98 07/30/19 07:43 83 07/30/19 06:37 150/75 07/30/19 06:37 150/75 07/30/19 05:48 Room Air 07/30/19 04:00 87 07/30/19 04:00 96.6 77 16 150/75 (100) 94 07/30/19 00:00 86 07/30/19 00:00 96.8 86 20 140/79 (99) 98 07/29/19 21:50 134/73 07/29/19 21:50 83 134/73 07/29/19 21:00 Room Air 07/29/19 20:06 83 20 95 Room Air 21 07/29/19 20:00 88 07/29/19 20:00 97.0 73 15 134/73 (93) 92 07/29/19 16:00 85 07/29/19 15:16 86 101/51 (68) 07/29/19 14:00 101/51 Height (Feet): 5 Height (Inches): 5.50 Weight (Pounds): 144 Objective General Appearance: no apparent distress Neck: supple Respiratory: normal breath sounds, no respiratory distress, other Cardiovascular: normal rate Gastrointestinal: normal inspection, non tender, soft, normal bowel sounds, non -distended Neurologic: confused Skin: scrotal wound packed Laboratory Tests Test 07/30/19 06:30 White Blood Count 6.1 K/UL (4.8-10.8) Red Blood Count 3.17 M/UL (4.70-6.10) L Hemoglobin 10.9 G/DL (14.2-18.0) L Hematocrit 32.5 % (42.0-52.0) L Mean Corpuscular Volume 103 FL (80-99) H Mean Corpuscular Hemoglobin 34.4 PG (27.0-31.0) H Mean Corpuscular Hemoglobin Concent 33.5 G/DL (32.0-36.0) Red Cell Distribution Width 12.2 % (11.6-14.8) Platelet Count 108 K/UL (150-450) L Mean Platelet Volume 9.7 FL (6.5-10.1) Neutrophils (%) (Auto) 66.7 % (45.0-75.0) Lymphocytes (%) (Auto) 19.3 % (20.0-45.0) L Monocytes (%) (Auto) 9.2 % (1.0-10.0) Eosinophils (%) (Auto) 3.9 % (0.0-3.0) H Basophils (%) (Auto) 0.8 % (0.0-2.0) Sodium Level 142 MMOL/L (136-145) Potassium Level 4.5 MMOL/L (3.5-5.1) Chloride Level 101 MMOL/L (98-107) Carbon Dioxide Level 35 MMOL/L (21-32) H Anion Gap 6 mmol/L (5-15) Blood Urea Nitrogen 56 mg/dL (7-18) H Creatinine 9.9 MG/DL (0.55-1.30) H Estimat Glomerular Filtration Rate 6.8 mL/min (>60) Glucose Level 89 MG/DL (74-106) Calcium Level 9.1 MG/DL (8.5-10.1) Current Medications Medications (Trade) Dose Ordered Sig/David Route PRN Reason Start Time Stop Time Status Last Admin Dose Admin Acetaminophen (Tylenol) 650 mg Q4H PRN ORAL Fever 07/26/19 19:15 08/15/19 19:14 Acetaminophen (Tylenol) 650 mg Q4H PRN RECTAL FEVER 07/26/19 19:15 08/15/19 19:14 Albuterol/ Ipratropium (Albuterol/ Ipratropium) 3 ml Q4H PRN HHN Shortness of Breath 07/28/19 15:15 08/01/19 15:14 Bacitracin (Bacitracin 15gm tube) 1 applic THREE TIMES A DAY TOPIC 07/27/19 09:00 08/21/19 08:59 07/30/19 12:25 Carvedilol (Coreg) 25 mg EVERY 12 HOURS ORAL 07/26/19 21:00 08/17/19 09:59 07/30/19 08:35 Dextrose (Dextrose 50%) 25 ml Q30M PRN IV Hypoglycemia 07/26/19 19:30 08/15/19 13:59 Dextrose (Dextrose 50%) 50 ml Q30M PRN IV Hypoglycemia 07/26/19 19:30 08/15/19 13:59 Docusate Sodium (Colace) 100 mg THREE TIMES A DAY ORAL 07/27/19 09:00 08/25/19 12:59 07/30/19 12:24 Heparin Sodium (Porcine) (Heparin 5000 units/ml) 5,000 units EVERY 8 HOURS SUBQ 07/26/19 22:00 08/15/19 13:59 Hydralazine HCl (Apresoline) 10 mg Q4H PRN IV bp over 160 syst 07/26/19 19:15 08/15/19 19:14 Hydralazine HCl (Apresoline) 25 mg Q8HR ORAL 07/28/19 14:00 08/18/19 18:29 07/30/19 06:37 Metoclopramide HCl (Reglan) 5 mg EVERY 6 HOURS ORAL 07/27/19 00:00 08/21/19 11:59 07/30/19 12:24 Metoclopramide HCl (Reglan) 10 mg Q8H PRN IVP Nausea & Vomiting 07/26/19 19:15 08/20/19 19:14 Nitroglycerin (Ntg) 1 patch Q24H TDERMAL 07/27/19 06:00 08/19/19 05:59 07/30/19 06:37 Pantoprazole (Protonix) 40 mg BID ORAL 07/27/19 09:00 08/25/19 08:59 07/30/19 08:36 Risperidone (RisperDAL) 0.5 mg Q4H PRN ORAL agitation 07/27/19 18:30 08/26/19 18:29 07/30/19 08:36 Sennosides (Senokot) 8.6 mg BIDPRN PRN ORAL Constipation 07/26/19 19:15 08/25/19 19:14 07/30/19 08:35 Sevelamer Carbonate (Renvela) 2,400 mg Q6HR ORAL 07/27/19 00:00 08/22/19 12:59 07/30/19 12:24 Lee Ann Hyatt M.D. Jul 30, 2019 12:53
--- NOTE | 2019-07-30 13:42 | NUR ---
CASE MANAGEMENT:REVIEW 07/30/19 SI: CARDIAC ARREST. ACUTE RESP FAILURE 98.1 80 19 128/69 95% ON RA H/H-10.9/32.5 PLT-108 BUN+56 CR+9.9 IS: PROTONIX PO BID NTG 1 PATCH Q24 REGLAN PO Q6HRS HEPARIN SQ Q8HRS HYDRALAZINE PO Q8HRS COREG PO Q12 : TELEMETRY PLAN: MRI BRAIN ORDERED
--- NOTE | 2019-07-30 13:46 | NUR ---
DISCHARGE PLANNING DISCHARGE PLAN DISCUSSED WITH DR CHAVEZ AND PER PHYSICAL THERAPIST RECOMMENDATION CLINICALS [facility] [address] [address] T: [phone] AWAIT RESPONSE REGARDING ACCEPTANCE Addendum: 07/30/19 at 1513 by ELSA FOLEY LVN LVN RECEIVED CALL FROM PADMINI AT [facility] T: [phone] PATIENT HAS BEEN ACCEPTED CLINICALLY BIBLICAL STUDIES PROFESSOR LEFT MESSAGE FOR DR FERNANDEZ. DR DIAS AND DR CHAVEZ REGARDING POSSIBLE DISCHARGE TOMORROW
--- NOTE | 2019-07-30 15:31 | NUR ---
ST NOTES: SWALLOW STATUS: SEEN MOSTLY FOR DYSPHAGIA. NOW ON 2E AND IS ALERT BUT CONFUSED. SPEECH IS MOSTLY UNINTELLIGIBLE (BETTER WHEN IN CONTEXT). GOALS FOR INTAKE NOT CONSISTENTLY MET AND HIGHLY VARIABLE 10/15/25/50/100% AND SLOWLY. HE NEEDS TO BE FED (STILL HAS WRIST RESTRAINTS). GOALS FOR STAFF EDUCATED/TRAINED IN POSTED PRECAUTIONS. UNABLE TO HAVE MOD BARIUM SWALLOW STUDY TODAY DUE TO SCHEDULE CONFLICTS. PLAN: CONTINUE WITH CURRENT DIET OF PUREED AND NECTAR THICK LIQUIDS WITH POSTED PRECAUTIONS. MOD BARIUM SWALLOW STUDY IP OR OP IF DC (IF DC CAN HAVE STUDY AT [facility]). WILL NEED CONTINUED SKILLED DYSPHAGIA MANAGEMENT AND TX AT [facility] UPON D/C WILL ALSO NEE A FULL SPEECH/LANGUAGE/COGNITIVE EVAL AT [facility]. D/W RN (JAJA) WHO AGREES WITH DIET TEXTURE RECOMMENDATIONS STAYING THE SAME DUE TO SLOW INTAKE.
[2019-07-30 16:00] VITALS: BP 120/86
--- NOTE | 2019-07-30 16:22 | Surgery Progress Note ---
Surgery Progress Note Subjective Procedure Performed 1. excision of scrotal lesion - aborted Additional Comments pending MRI brain still confused but talkative and responsive Objective Last 24 Hour Vital Signs Date Time Temp Pulse Resp B/P (MAP) Pulse Ox O2 Delivery O2 Flow Rate FiO2 07/30/19 15:01 128/69 07/30/19 12:00 98.1 80 19 128/69 (88) 95 07/30/19 11:48 81 07/30/19 09:00 Room Air 07/30/19 08:35 67 130/61 07/30/19 08:00 96.4 67 20 130/61 (84) 98 07/30/19 07:43 83 07/30/19 06:37 150/75 07/30/19 06:37 150/75 07/30/19 05:48 Room Air 07/30/19 04:00 87 07/30/19 04:00 96.6 77 16 150/75 (100) 94 07/30/19 00:00 86 07/30/19 00:00 96.8 86 20 140/79 (99) 98 07/29/19 21:50 134/73 07/29/19 21:50 83 134/73 07/29/19 21:00 Room Air 07/29/19 20:06 83 20 95 Room Air 21 07/29/19 20:00 88 07/29/19 20:00 97.0 73 15 134/73 (93) 92 I&O Intake and Output 07/29/19 07/30/19 19:00 07:00 Intake Total 610 ml Balance 610 ml Intake Oral 610 ml # Voids 2 2 Dressing: other Wound: other Drains: other Cardiovascular: RSR Respiratory: decreased breath sounds Abdomen: soft, present bowel sounds Extremities: no cyanosis Laboratory Tests Test 07/30/19 06:30 White Blood Count 6.1 K/UL (4.8-10.8) Red Blood Count 3.17 M/UL (4.70-6.10) L Hemoglobin 10.9 G/DL (14.2-18.0) L Hematocrit 32.5 % (42.0-52.0) L Mean Corpuscular Volume 103 FL (80-99) H Mean Corpuscular Hemoglobin 34.4 PG (27.0-31.0) H Mean Corpuscular Hemoglobin Concent 33.5 G/DL (32.0-36.0) Red Cell Distribution Width 12.2 % (11.6-14.8) Platelet Count 108 K/UL (150-450) L Mean Platelet Volume 9.7 FL (6.5-10.1) Neutrophils (%) (Auto) 66.7 % (45.0-75.0) Lymphocytes (%) (Auto) 19.3 % (20.0-45.0) L Monocytes (%) (Auto) 9.2 % (1.0-10.0) Eosinophils (%) (Auto) 3.9 % (0.0-3.0) H Basophils (%) (Auto) 0.8 % (0.0-2.0) Sodium Level 142 MMOL/L (136-145) Potassium Level 4.5 MMOL/L (3.5-5.1) Chloride Level 101 MMOL/L (98-107) Carbon Dioxide Level 35 MMOL/L (21-32) H Anion Gap 6 mmol/L (5-15) Blood Urea Nitrogen 56 mg/dL (7-18) H Creatinine 9.9 MG/DL (0.55-1.30) H Estimat Glomerular Filtration Rate 6.8 mL/min (>60) Glucose Level 89 MG/DL (74-106) Calcium Level 9.1 MG/DL (8.5-10.1) Plan Problems: (1) Scrotal lesion Assessment & Plan: Continue with 3 times daily dressings okay for bacitracin and Xeroform gauze (2) Cardiac arrest Assessment & Plan: Etiology unknown pending echo appreciate cardiology input Continue current care extubated abg okay diet monitoring d/c planning thank you Thank you will follow with recommendations Zenon Galloway Jul 30, 2019 16:22
--- NOTE | 2019-07-30 18:53 | Internal Med Progress Note ---
Subjective Date of Service: Jul 30, 2019 Physician Name Michael Perez Attending Physician Zuhair Singleton MD Current Medications Medications (Trade) Dose Ordered Sig/David Route PRN Reason Start Time Stop Time Status Last Admin Dose Admin Acetaminophen (Tylenol) 650 mg Q4H PRN ORAL Fever 07/26/19 19:15 08/15/19 19:14 Acetaminophen (Tylenol) 650 mg Q4H PRN RECTAL FEVER 07/26/19 19:15 08/15/19 19:14 Albuterol/ Ipratropium (Albuterol/ Ipratropium) 3 ml Q4H PRN HHN Shortness of Breath 07/28/19 15:15 08/01/19 15:14 Bacitracin (Bacitracin 15gm tube) 1 applic THREE TIMES A DAY TOPIC 07/27/19 09:00 08/21/19 08:59 07/30/19 17:54 Carvedilol (Coreg) 25 mg EVERY 12 HOURS ORAL 07/26/19 21:00 08/17/19 09:59 07/30/19 08:35 Dextrose (Dextrose 50%) 25 ml Q30M PRN IV Hypoglycemia 07/26/19 19:30 08/15/19 13:59 Dextrose (Dextrose 50%) 50 ml Q30M PRN IV Hypoglycemia 07/26/19 19:30 08/15/19 13:59 Docusate Sodium (Colace) 100 mg THREE TIMES A DAY ORAL 07/27/19 09:00 08/25/19 12:59 07/30/19 17:54 Heparin Sodium (Porcine) (Heparin 5000 units/ml) 5,000 units EVERY 8 HOURS SUBQ 07/26/19 22:00 08/15/19 13:59 Hydralazine HCl (Apresoline) 10 mg Q4H PRN IV bp over 160 syst 07/26/19 19:15 08/15/19 19:14 Hydralazine HCl (Apresoline) 25 mg Q8HR ORAL 07/28/19 14:00 08/18/19 18:29 07/30/19 15:01 Metoclopramide HCl (Reglan) 5 mg EVERY 6 HOURS ORAL 07/27/19 00:00 08/21/19 11:59 07/30/19 17:53 Metoclopramide HCl (Reglan) 10 mg Q8H PRN IVP Nausea & Vomiting 07/26/19 19:15 08/20/19 19:14 Nitroglycerin (Ntg) 1 patch Q24H TDERMAL 07/27/19 06:00 08/19/19 05:59 07/30/19 06:37 Pantoprazole (Protonix) 40 mg BID ORAL 07/27/19 09:00 08/25/19 08:59 07/30/19 17:54 Risperidone (RisperDAL) 0.5 mg Q4H PRN ORAL agitation 07/27/19 18:30 08/26/19 18:29 07/30/19 08:36 Sennosides (Senokot) 8.6 mg BIDPRN PRN ORAL Constipation 07/26/19 19:15 08/25/19 19:14 07/30/19 08:35 Sevelamer Carbonate (Renvela) 2,400 mg Q6HR ORAL 07/27/19 00:00 08/22/19 12:59 07/30/19 17:54 Allergies: Coded Allergies: LISINOPRIL (Verified Allergy, Severe, Shortness of Breath, 07/02/19) THROAT SWELLS UP PENICILLINS (Verified Allergy, Severe, throat swelling, 07/17/19) tolerated Ancef x1 07/16/19 Uncoded Allergies: shellfish (Allergy, Severe, 02/06/19) shortness of breath, vomiting, throat swelling ROS Limited/Unobtainable: Yes Subjective 49 YO M admitted for scrotal fistulotomy. S/P cardiac arrest. Self extubated . Cover for Int tim-Dr Singleton. Less confused; more alert Objective Last Vital Signs Date Time Temp Pulse Resp B/P (MAP) Pulse Ox O2 Delivery O2 Flow Rate FiO2 07/30/19 16:00 96.8 80 19 120/86 (97) 100 07/30/19 09:00 Room Air 07/29/19 20:06 21 07/26/19 20:00 2.0 Laboratory Tests Test 07/30/19 06:30 White Blood Count 6.1 K/UL (4.8-10.8) Red Blood Count 3.17 M/UL (4.70-6.10) L Hemoglobin 10.9 G/DL (14.2-18.0) L Hematocrit 32.5 % (42.0-52.0) L Mean Corpuscular Volume 103 FL (80-99) H Mean Corpuscular Hemoglobin 34.4 PG (27.0-31.0) H Mean Corpuscular Hemoglobin Concent 33.5 G/DL (32.0-36.0) Red Cell Distribution Width 12.2 % (11.6-14.8) Platelet Count 108 K/UL (150-450) L Mean Platelet Volume 9.7 FL (6.5-10.1) Neutrophils (%) (Auto) 66.7 % (45.0-75.0) Lymphocytes (%) (Auto) 19.3 % (20.0-45.0) L Monocytes (%) (Auto) 9.2 % (1.0-10.0) Eosinophils (%) (Auto) 3.9 % (0.0-3.0) H Basophils (%) (Auto) 0.8 % (0.0-2.0) Sodium Level 142 MMOL/L (136-145) Potassium Level 4.5 MMOL/L (3.5-5.1) Chloride Level 101 MMOL/L (98-107) Carbon Dioxide Level 35 MMOL/L (21-32) H Anion Gap 6 mmol/L (5-15) Blood Urea Nitrogen 56 mg/dL (7-18) H Creatinine 9.9 MG/DL (0.55-1.30) H Estimat Glomerular Filtration Rate 6.8 mL/min (>60) Glucose Level 89 MG/DL (74-106) Calcium Level 9.1 MG/DL (8.5-10.1) Intake and Output 07/29/19 07/30/19 19:00 07:00 Intake Total 610 ml Balance 610 ml Intake Oral 610 ml # Voids 2 2 Objective PHYSICAL EXAMINATION: GENERAL: The patient is well-developed well-nourished male, intubated and sedated in the intensive care unit. CHEST: nasal canula; Diffuse coarse breath sounds bilaterally without wheezes CARDIOVASCULAR: Regular rhythm and rate. S1, S2 are normal without murmurs, rubs, or gallops. ABDOMEN: Soft, nontender, nondistended. Positive bowel sounds. No evidence of hepatosplenomegaly. Currently, no rebound or guarding noted. EXTREMITIES: Negative for clubbing, cyanosis, edema. NEUROLOGIC: Unable to assess. Assessment/Plan Assessment/Plan ASSESSMENT: This is a 49-year-old male. 1. Scrotal fistula. 2. Status post cardiac arrest. 3. Renal failure. 4. Hypertension. 5. Gout. 6. End stage renal disease on hemodialysis. 7. Cardiomyopathy 8. Systolic CHF 9. dysphagia 10. Altered mental status TREATMENT: 1. Scrotal fistula. Surgery was aborted on 07/16/2019. Follow recommendations of Surgery, Dr. Galloway. 2. Status post cardiac arrest. The patient is S/P self-extubation 07/18/19. A Cardiology consultation has been obtained with Dr. Emmanuel Cortés. Follow recommendations of Cardiology. 3. End stage renal disease. A Nephrology consultation has been obtained with Dr. Daniel Delgadillo. Hemodialysis 07/22/19. Follow recommendations of Nephrology. 4. Hypertension. 5. Gout. 6. PATRICK status 7. Failed swallow eval-patient pulled out NGT. GI=Dr Delarosa 8. Calorie count in progress 9. Neurology consult=Dr Christie out of town; Dr Patel notified Michael Perez MD Jul 30, 2019 18:53
--- NOTE | 2019-07-30 19:21 | NUR ---
HAND-OFF: Report given to RIVER HOBSON. Pt is awake and stable.
--- NOTE | 2019-07-30 19:25 | NUR ---
NURSE NOTES: Received pt from JOCE Rasmussen. Pt is awake in bed, resting, HOB elevated for aspiration precautions. pt is on bilateral soft wrist restraints, skin beneath restraints intact, sensation intact and asymptomatic, no redness. Repositioned pt. Dressing on R groin clean, dry and intact. IV patent. No signs of cardiac or respiratory distress. Call light within reach, bed is locked and lowest position, bed alarm on. Will continue to follow plans of care and monitor pt.
[2019-07-30 20:00] VITALS: BP 135/62
--- NOTE | 2019-07-30 20:00 | Cardiology Progress Note ---
Assessment/Plan Assessment/Plan 1. Status cardiac arrest, asystolic in origin. 2. Reported history of dilated cardiomyopathy that had improved in October 2018. 3. Hypertension, poorly controlled. 4. Hyperlipidemia. 5. End-stage renal disease, on hemodialysis. 6. History of systolic heart failure previously. 7. Lisinopril and penicillin allergy. 8. Diabetes mellitus. 9. Secondary hyperparathyroidism. 10. History of asthma. 11. Anemia, secondary to end-stage renal disease. 12. post arrest evidence for cardiomyopathy resolved on echo 07/27/2018 c/w takatsubos cm minor trop abn with out a peak or lorri to suggest acs an in della setting of renal failure is not specific tele personally reviewed labs noted cannot take acei due to allergy overall better but confused more today keep supportive care dvt ppx heparin rn reported on initial admission to icu pt with food vomit post arrest , aspiration may be a possibility ? Isordil and hydralazine for cm echo on 07/27/2019 showed sig improvement of cm suggestive of takotsubo cardiomyopathy Subjective ROS Limited/Unobtainable: Yes Subjective confused , has to be in restraint per rn Objective Last 24 Hour Vital Signs Date Time Temp Pulse Resp B/P (MAP) Pulse Ox O2 Delivery O2 Flow Rate FiO2 07/30/19 16:00 96.8 80 19 120/86 (97) 100 07/30/19 15:30 86 07/30/19 15:01 128/69 07/30/19 12:00 98.1 80 19 128/69 (88) 95 07/30/19 11:48 81 07/30/19 09:00 Room Air 07/30/19 08:35 67 130/61 07/30/19 08:00 96.4 67 20 130/61 (84) 98 07/30/19 07:43 83 07/30/19 06:37 150/75 07/30/19 06:37 150/75 07/30/19 05:48 Room Air 07/30/19 04:00 87 07/30/19 04:00 96.6 77 16 150/75 (100) 94 07/30/19 00:00 86 07/30/19 00:00 96.8 86 20 140/79 (99) 98 07/29/19 21:50 134/73 07/29/19 21:50 83 134/73 07/29/19 21:00 Room Air 07/29/19 20:06 83 20 95 Room Air 21 General Appearance: no apparent distress, patient on isolation Neck: supple Cardiovascular: normal rate Respiratory/Chest: lungs clear Abdomen: normal bowel sounds, non tender, soft Extremities: no swelling Intake and Output 07/29/19 07/30/19 19:00 07:00 Intake Total 610 ml Balance 610 ml Intake Oral 610 ml # Voids 2 2 Laboratory Tests Test 07/30/19 06:30 White Blood Count 6.1 K/UL (4.8-10.8) Red Blood Count 3.17 M/UL (4.70-6.10) L Hemoglobin 10.9 G/DL (14.2-18.0) L Hematocrit 32.5 % (42.0-52.0) L Mean Corpuscular Volume 103 FL (80-99) H Mean Corpuscular Hemoglobin 34.4 PG (27.0-31.0) H Mean Corpuscular Hemoglobin Concent 33.5 G/DL (32.0-36.0) Red Cell Distribution Width 12.2 % (11.6-14.8) Platelet Count 108 K/UL (150-450) L Mean Platelet Volume 9.7 FL (6.5-10.1) Neutrophils (%) (Auto) 66.7 % (45.0-75.0) Lymphocytes (%) (Auto) 19.3 % (20.0-45.0) L Monocytes (%) (Auto) 9.2 % (1.0-10.0) Eosinophils (%) (Auto) 3.9 % (0.0-3.0) H Basophils (%) (Auto) 0.8 % (0.0-2.0) Sodium Level 142 MMOL/L (136-145) Potassium Level 4.5 MMOL/L (3.5-5.1) Chloride Level 101 MMOL/L (98-107) Carbon Dioxide Level 35 MMOL/L (21-32) H Anion Gap 6 mmol/L (5-15) Blood Urea Nitrogen 56 mg/dL (7-18) H Creatinine 9.9 MG/DL (0.55-1.30) H Estimat Glomerular Filtration Rate 6.8 mL/min (>60) Glucose Level 89 MG/DL (74-106) Calcium Level 9.1 MG/DL (8.5-10.1) Emmanuel Cortés MD Jul 30, 2019 20:00
[2019-07-31] VITALS: BP 158/78
[2019-07-31] MEDS: Metoclopramide 10mg/10ml Liq ORAL SCH ×3 (00:35→12:52)
[2019-07-31] MEDS: Renvela 800mg Pkt ORAL SCH ×4 (00:35→18:27)
--- NOTE | 2019-07-31 01:08 | NUR ---
NURSE NOTES: Scrotal dressing reapplied after cleaning with NS.
[2019-07-31 04:00] VITALS: BP 149/74
[2019-07-31] MEDS: Heparin 5000 units/ml inj SUBQ SCH ×3 (05:43→21:40)
[2019-07-31] MEDS: HydrALAZINE 25mg tab ORAL SCH ×2 (05:58→14:00)
[2019-07-31] MEDS: Nitroglycerin Patch 0.4mg TDERMAL SCH (05:59)
--- NOTE | 2019-07-31 07:28 | General Progress Note ---
Assessment/Plan Status: stable, progressing Assessment/Plan: Assessment/Plan Problems: (1) Scrotal lesion ICD Codes: N50.9 - Disorder of male genital organs, unspecified SNOMED: 33770776 (2) Cardiac arrest ICD Codes: I46.9 - Cardiac arrest, cause unspecified SNOMED: 970190196 (3) Anemia ICD Codes: D64.9 - Anemia, unspecified SNOMED: 232793154 (4) Constipation ICD Codes: K59.00 - Constipation, unspecified (5) N/V, TF intolerance Assessment/Plan follow up cardiology recs prn transfusions HD per nephrology ppi eating much better will hold NGT or GT feeding plans for now Subjective ROS Limited/Unobtainable: No Allergies: Coded Allergies: LISINOPRIL (Verified Allergy, Severe, Shortness of Breath, 07/02/19) THROAT SWELLS UP PENICILLINS (Verified Allergy, Severe, throat swelling, 07/17/19) tolerated Ancef x1 07/16/19 Uncoded Allergies: shellfish (Allergy, Severe, 02/06/19) shortness of breath, vomiting, throat swelling Objective Last 24 Hour Vital Signs Date Time Temp Pulse Resp B/P (MAP) Pulse Ox O2 Delivery O2 Flow Rate FiO2 07/31/19 05:59 149/74 07/31/19 05:58 149/74 07/31/19 04:00 83 07/31/19 04:00 97.7 82 16 149/74 (99) 95 07/31/19 00:04 84 07/31/19 00:00 97.2 83 16 158/78 (104) 96 07/30/19 21:42 135/62 07/30/19 21:42 82 135/62 07/30/19 21:01 Room Air 07/30/19 20:00 97.2 82 17 135/62 (86) 96 07/30/19 20:00 82 07/30/19 19:00 81 20 96 Room Air 21 07/30/19 16:00 96.8 80 19 120/86 (97) 100 07/30/19 15:30 86 07/30/19 15:01 128/69 07/30/19 12:00 98.1 80 19 128/69 (88) 95 07/30/19 11:48 81 07/30/19 09:00 Room Air 07/30/19 08:35 67 130/61 07/30/19 08:00 96.4 67 20 130/61 (84) 98 07/30/19 07:43 83 Intake and Output 07/30/19 07/31/19 19:00 07:00 # Voids 1 Laboratory Tests 07/31/19 06:45: White Blood Count [Pending], Red Blood Count [Pending], Hemoglobin [Pending], Hematocrit [Pending], Mean Corpuscular Volume [Pending], Mean Corpuscular Hemoglobin [Pending], Mean Corpuscular Hemoglobin Concent [Pending], Red Cell Distribution Width [Pending], Platelet Count [Pending], Mean Platelet Volume [ Pending], Neutrophils (%) (Auto) [Pending], Lymphocytes (%) (Auto) [Pending], Monocytes (%) (Auto) [Pending], Eosinophils (%) (Auto) [Pending], Basophils (%) (Auto) [Pending], Sodium Level [Pending], Potassium Level [Pending], Chloride Level [Pending], Carbon Dioxide Level [Pending], Blood Urea Nitrogen [Pending], Creatinine [Pending], Estimat Glomerular Filtration Rate [Pending], Glucose Level [Pending], Calcium Level [Pending] Height (Feet): 5 Height (Inches): 5.50 Weight (Pounds): 144 General Appearance: alert EENT: normal ENT inspection Neck: supple Cardiovascular: normal rate Respiratory/Chest: lungs clear Abdomen: normal bowel sounds, non tender, soft Extremities: non-tender Richy Delarosa MD Jul 31, 2019 07:28
--- NOTE | 2019-07-31 07:34 | NUR ---
NURSE NOTES: Received pt from [facility], Pt is awake and alert, pt is in RA, no SOB or acute respiratory distress noted. Pt has intact iv access RFA 20G SL. No complain of pain at this moment. A BIOINFORMATICS PROGRAMMER is feeding pt. Pt is on continues heart monitoring. all needs attended, bed is locked and is in the lowest position, call light within easy reach. will continue to monitor.
--- NOTE | 2019-07-31 07:38 | NUR ---
NURSE NOTES: Received pt from [facility], Pt is awake and alert, pt is in RA, no SOB or acute respiratory distress noted. Pt has intact iv access RFA 20G SL. No complain of pain at this moment. A POLLUTION CONTROL CHEMIST is feeding pt. Pt is on continues heart monitoring. all needs attended, bed is locked and is in the lowest position, call light within easy reach. will continue to monitor.
[2019-07-31 07:43] LABS: BASOPHILS % (AUTO) 0.7 % (0.0-2.0); EOSINOPHILS % (AUTO) 3.4 % (0.0-3.0); HEMATOCRIT 31.1 % (42.0-52.0); HEMOGLOBIN 10.3 G/DL (14.2-18.0); LYMPHOCYTES % (AUTO) 14.8 % (20.0-45.0); MEAN CORPUSCULAR VOLUME 102 FL (80-99); NEUTROPHILS % (AUTO) 72.2 % (45.0-75.0); PLATELET COUNT 105 K/UL (150-450); RED BLOOD COUNT 3.06 M/UL (4.70-6.10); RED CELL DISTRIBUTION WIDTH 11.9 % (11.6-14.8); WHITE BLOOD COUNT 6.1 K/UL (4.8-10.8)
--- NOTE | 2019-07-31 07:49 | NUR ---
HAND-OFF: Report given to JOCE Rasmussen.
[2019-07-31 07:52] LABS: ANION GAP 8 mmol/L (5-15); BLOOD UREA NITROGEN 78 mg/dL (7-18); CALCIUM 9.1 MG/DL (8.5-10.1); CARBON DIOXIDE 34 MMOL/L (21-32); CHLORIDE 105 MMOL/L (98-107); CREATININE 11.3 MG/DL (0.55-1.30); POTASSIUM 4.8 MMOL/L (3.5-5.1); SODIUM 147 MMOL/L (136-145)
[2019-07-31 08:00] VITALS: BP 121/82
[2019-07-31] MEDS: Bacitracin Oint 15gm Tube TOPIC SCH ×3 (09:10→18:28)
[2019-07-31] MEDS: Carvedilol 25mg Tab ORAL SCH (09:10)
[2019-07-31] MEDS: Docusate 100mg cap ORAL SCH ×3 (09:10→18:27)
--- NOTE | 2019-07-31 09:28 | NUR ---
NURSE NOTES: called [facility], spoke with ROBERT regarding HD for today. will continue to monitor.
--- NOTE | 2019-07-31 09:53 | NUR ---
DISCHARGE PLANNING PATIENT HAS BEEN ACCEPTED [facility] [address] [place] [address] T: [phone] PRE SALES NETWORK ENGINEER IS: PADMINI T: [phone] WAITING FOR OFFICIAL DISCHARGE ORDER
--- NOTE | 2019-07-31 11:01 | NUR ---
NURSE NOTES: Dr CHAVEZ visited pt and is aware about lab results and V/S and constipation, ordered miralax, noted and carried out. will continue to monitor.
[2019-07-31] MEDS ORDERED: LORazepam Inj 2mg/ml 1ml IV SCH (11:30)
--- NOTE | 2019-07-31 11:30 | Pulmonology Progress Note ---
Assessment/Plan Problems: (1) Cardiac arrest (2) Acute respiratory failure (3) ESRD (end stage renal disease) (4) Diabetes mellitus (5) Cardiomyopathy (6) Hypertension Assessment/Plan according to Physical Therapist, pt would benefit from acute rehab HD by nephrology monitor BP titrate cardiac meds sliding scale diabetic diet MRI of brain pending for today, after 1 mg of ativan. Pt woke up in middle of the procedure with .5 mg po ativan Subjective ROS Limited/Unobtainable: No Constitutional: Reports: no symptoms HEENT: Repors: no symptoms Respiratory: Reports: no symptoms Allergies: Coded Allergies: LISINOPRIL (Verified Allergy, Severe, Shortness of Breath, 07/02/19) THROAT SWELLS UP PENICILLINS (Verified Allergy, Severe, throat swelling, 07/17/19) tolerated Ancef x1 07/16/19 Uncoded Allergies: shellfish (Allergy, Severe, 02/06/19) shortness of breath, vomiting, throat swelling Objective Last 24 Hour Vital Signs Date Time Temp Pulse Resp B/P (MAP) Pulse Ox O2 Delivery O2 Flow Rate FiO2 07/31/19 09:10 86 121/82 07/31/19 09:00 Room Air 07/31/19 08:00 96.8 86 20 121/82 (95) 95 07/31/19 07:50 85 07/31/19 05:59 149/74 07/31/19 05:58 149/74 07/31/19 04:00 83 07/31/19 04:00 97.7 82 16 149/74 (99) 95 07/31/19 00:04 84 07/31/19 00:00 97.2 83 16 158/78 (104) 96 07/30/19 21:42 135/62 07/30/19 21:42 82 135/62 07/30/19 21:01 Room Air 07/30/19 20:00 97.2 82 17 135/62 (86) 96 07/30/19 20:00 82 07/30/19 19:00 81 20 96 Room Air 21 07/30/19 16:00 96.8 80 19 120/86 (97) 100 07/30/19 15:30 86 07/30/19 15:01 128/69 07/30/19 12:00 98.1 80 19 128/69 (88) 95 07/30/19 11:48 81 Intake and Output 07/30/19 07/31/19 19:00 07:00 # Voids 1 1 General Appearance: WD/WN HEENT: normocephalic, atraumatic Respiratory/Chest: chest wall non-tender, lungs clear Abdomen: normal bowel sounds, soft, non tender Genitourinary: normal external genitalia Neurologic/Psychiatric: family nurse II-XII grossly normal Lymphatic: no neck adenopathy Laboratory Tests 07/31/19 06:45: White Blood Count 6.1, Red Blood Count 3.06L, Hemoglobin 10.3L, Hematocrit 31.1L , Mean Corpuscular Volume 102H, Mean Corpuscular Hemoglobin 33.8H, Mean Corpuscular Hemoglobin Concent 33.3, Red Cell Distribution Width 11.9, Platelet Count 105L, Mean Platelet Volume 11.1H, Neutrophils (%) (Auto) 72.2, Lymphocytes (%) (Auto) 14.8L, Monocytes (%) (Auto) 9.0, Eosinophils (%) (Auto) 3.4H, Basophils (%) (Auto) 0.7, Sodium Level 147H, Potassium Level 4.8, Chloride Level 105, Carbon Dioxide Level 34H, Anion Gap 8, Blood Urea Nitrogen 78H, Creatinine 11.3H, Estimat Glomerular Filtration Rate 5.8, Glucose Level 109H, Calcium Level 9.1 Current Medications Medications (Trade) Dose Ordered Sig/David Route PRN Reason Start Time Stop Time Status Last Admin Dose Admin Acetaminophen (Tylenol) 650 mg Q4H PRN ORAL Fever 07/26/19 19:15 08/15/19 19:14 Acetaminophen (Tylenol) 650 mg Q4H PRN RECTAL FEVER 07/26/19 19:15 08/15/19 19:14 Albuterol/ Ipratropium (Albuterol/ Ipratropium) 3 ml Q4H PRN HHN Shortness of Breath 07/28/19 15:15 08/01/19 15:14 Bacitracin (Bacitracin 15gm tube) 1 applic THREE TIMES A DAY TOPIC 07/27/19 09:00 08/21/19 08:59 07/31/19 09:10 Carvedilol (Coreg) 25 mg EVERY 12 HOURS ORAL 07/26/19 21:00 08/17/19 09:59 07/31/19 09:10 Dextrose (Dextrose 50%) 25 ml Q30M PRN IV Hypoglycemia 07/26/19 19:30 08/15/19 13:59 Dextrose (Dextrose 50%) 50 ml Q30M PRN IV Hypoglycemia 07/26/19 19:30 08/15/19 13:59 Docusate Sodium (Colace) 100 mg THREE TIMES A DAY ORAL 07/27/19 09:00 08/25/19 12:59 07/31/19 09:10 Heparin Sodium (Porcine) (Heparin 5000 units/ml) 5,000 units EVERY 8 HOURS SUBQ 07/26/19 22:00 08/15/19 13:59 Hydralazine HCl (Apresoline) 10 mg Q4H PRN IV bp over 160 syst 07/26/19 19:15 08/15/19 19:14 Hydralazine HCl (Apresoline) 25 mg Q8HR ORAL 07/28/19 14:00 08/18/19 18:29 07/31/19 05:58 Metoclopramide HCl (Reglan) 5 mg EVERY 6 HOURS ORAL 07/27/19 00:00 08/21/19 11:59 07/31/19 05:59 Metoclopramide HCl (Reglan) 10 mg Q8H PRN IVP Nausea & Vomiting 07/26/19 19:15 08/20/19 19:14 Nitroglycerin (Ntg) 1 patch Q24H TDERMAL 07/27/19 06:00 08/19/19 05:59 07/31/19 05:59 Pantoprazole (Protonix) 40 mg BID ORAL 07/27/19 09:00 08/25/19 08:59 07/31/19 09:10 Polyethylene Glycol (Miralax) 17 gm BEDTIME ORAL 07/31/19 21:00 08/30/19 20:59 Risperidone (RisperDAL) 0.5 mg Q4H PRN ORAL agitation 07/27/19 18:30 08/26/19 18:29 07/30/19 08:36 Sennosides (Senokot) 8.6 mg BIDPRN PRN ORAL Constipation 07/26/19 19:15 08/25/19 19:14 07/30/19 08:35 Sevelamer Carbonate (Renvela) 2,400 mg Q6HR ORAL 07/27/19 00:00 08/22/19 12:59 07/31/19 05:59 Juan Carlos Soto MD Jul 31, 2019 11:29
--- NOTE | 2019-07-31 11:55 | Infectious Diseases Prog Note ---
Assessment/Plan Assessment/Plan Assessment: Probable aspiration PNA, sp rx -07/20 CXR: Mild pulmonary vascular congestion suspected. Bilateral pleural effusions. -07/17 CXR: Bilateral pleural effusion and mild interstitial congestion and hazy parenchymal opacity present. Cardiac arrest asystole during surgical procedure -07/16 CXR: pulmonary edema Non healing scrotal wound; bx showed: ruptured epidermal inclusion cyst with associated abscess formation -07/16 sp attempted excision but procedure aborted due to cardiac arrest VDRF 07/16; extubated 07/18 Afebrile Mild leukocytosis, SP ESRD on HD via L arm AVF Dm2 HTN internal hemorrhoids Plan: -Cont to monitor off abx -07/23 SP LEvaquin #7 -07/16 SP Ancef x1 -f/u cx -Monitor CBC/CMP, temperatures -aspiration precautions -wound care per surgical team -Sx, Neprho, pulm f/u Thank you for this consultation. Will continue to follow along with you. Discussed with RN Subjective Allergies: Coded Allergies: LISINOPRIL (Verified Allergy, Severe, Shortness of Breath, 07/02/19) THROAT SWELLS UP PENICILLINS (Verified Allergy, Severe, throat swelling, 07/17/19) tolerated Ancef x1 07/16/19 Uncoded Allergies: shellfish (Allergy, Severe, 02/06/19) shortness of breath, vomiting, throat swelling Subjective afebrile no leukocytosis at RA off abx Objective Vital Signs Last 24 Hour Vital Signs Date Time Temp Pulse Resp B/P (MAP) Pulse Ox O2 Delivery O2 Flow Rate FiO2 07/31/19 09:10 86 121/82 07/31/19 09:00 Room Air 07/31/19 08:00 96.8 86 20 121/82 (95) 95 07/31/19 07:50 85 07/31/19 05:59 149/74 07/31/19 05:58 149/74 07/31/19 04:00 83 07/31/19 04:00 97.7 82 16 149/74 (99) 95 07/31/19 00:04 84 07/31/19 00:00 97.2 83 16 158/78 (104) 96 07/30/19 21:42 135/62 07/30/19 21:42 82 135/62 07/30/19 21:01 Room Air 2/10/20 20:00 97.2 82 17 135/62 (86) 96 07/30/19 20:00 82 07/30/19 19:00 81 20 96 Room Air 21 07/30/19 16:00 96.8 80 19 120/86 (97) 100 07/30/19 15:30 86 07/30/19 15:01 128/69 07/30/19 12:00 98.1 80 19 128/69 (88) 95 Height (Feet): 5 Height (Inches): 5.50 Weight (Pounds): 145 Objective General Appearance: no apparent distress Neck: supple Respiratory: normal breath sounds, no respiratory distress, other Cardiovascular: normal rate Gastrointestinal: normal inspection, non tender, soft, normal bowel sounds, non -distended Neurologic: confused Skin: scrotal wound packed Laboratory Tests Test 07/31/19 06:45 White Blood Count 6.1 K/UL (4.8-10.8) Red Blood Count 3.06 M/UL (4.70-6.10) L Hemoglobin 10.3 G/DL (14.2-18.0) L Hematocrit 31.1 % (42.0-52.0) L Mean Corpuscular Volume 102 FL (80-99) H Mean Corpuscular Hemoglobin 33.8 PG (27.0-31.0) H Mean Corpuscular Hemoglobin Concent 33.3 G/DL (32.0-36.0) Red Cell Distribution Width 11.9 % (11.6-14.8) Platelet Count 105 K/UL (150-450) L Mean Platelet Volume 11.1 FL (6.5-10.1) H Neutrophils (%) (Auto) 72.2 % (45.0-75.0) Lymphocytes (%) (Auto) 14.8 % (20.0-45.0) L Monocytes (%) (Auto) 9.0 % (1.0-10.0) Eosinophils (%) (Auto) 3.4 % (0.0-3.0) H Basophils (%) (Auto) 0.7 % (0.0-2.0) Sodium Level 147 MMOL/L (136-145) H Potassium Level 4.8 MMOL/L (3.5-5.1) Chloride Level 105 MMOL/L (98-107) Carbon Dioxide Level 34 MMOL/L (21-32) H Anion Gap 8 mmol/L (5-15) Blood Urea Nitrogen 78 mg/dL (7-18) H Creatinine 11.3 MG/DL (0.55-1.30) H Estimat Glomerular Filtration Rate 5.8 mL/min (>60) Glucose Level 109 MG/DL (74-106) H Calcium Level 9.1 MG/DL (8.5-10.1) Current Medications Medications (Trade) Dose Ordered Sig/David Route PRN Reason Start Time Stop Time Status Last Admin Dose Admin Acetaminophen (Tylenol) 650 mg Q4H PRN ORAL Fever 07/26/19 19:15 08/15/19 19:14 Acetaminophen (Tylenol) 650 mg Q4H PRN RECTAL FEVER 07/26/19 19:15 08/15/19 19:14 Albuterol/ Ipratropium (Albuterol/ Ipratropium) 3 ml Q4H PRN HHN Shortness of Breath 07/28/19 15:15 08/01/19 15:14 Bacitracin (Bacitracin 15gm tube) 1 applic THREE TIMES A DAY TOPIC 07/27/19 09:00 08/21/19 08:59 07/31/19 09:10 Carvedilol (Coreg) 25 mg EVERY 12 HOURS ORAL 07/26/19 21:00 08/17/19 09:59 07/31/19 09:10 Dextrose (Dextrose 50%) 25 ml Q30M PRN IV Hypoglycemia 07/26/19 19:30 08/15/19 13:59 Dextrose (Dextrose 50%) 50 ml Q30M PRN IV Hypoglycemia 07/26/19 19:30 08/15/19 13:59 Docusate Sodium (Colace) 100 mg THREE TIMES A DAY ORAL 07/27/19 09:00 08/25/19 12:59 07/31/19 09:10 Heparin Sodium (Porcine) (Heparin 5000 units/ml) 5,000 units EVERY 8 HOURS SUBQ 07/26/19 22:00 08/15/19 13:59 Hydralazine HCl (Apresoline) 10 mg Q4H PRN IV bp over 160 syst 07/26/19 19:15 08/15/19 19:14 Hydralazine HCl (Apresoline) 25 mg Q8HR ORAL 07/28/19 14:00 08/18/19 18:29 07/31/19 05:58 Lorazepam (Ativan 2mg/ml 1ml) 1 mg ONCE IV 07/31/19 11:30 07/31/19 12:30 Metoclopramide HCl (Reglan) 5 mg EVERY 6 HOURS ORAL 07/27/19 00:00 08/21/19 11:59 07/31/19 05:59 Metoclopramide HCl (Reglan) 10 mg Q8H PRN IVP Nausea & Vomiting 07/26/19 19:15 08/20/19 19:14 Nitroglycerin (Ntg) 1 patch Q24H TDERMAL 07/27/19 06:00 08/19/19 05:59 07/31/19 05:59 Pantoprazole (Protonix) 40 mg BID ORAL 07/27/19 09:00 08/25/19 08:59 07/31/19 09:10 Polyethylene Glycol (Miralax) 17 gm BEDTIME ORAL 07/31/19 21:00 08/30/19 20:59 Risperidone (RisperDAL) 0.5 mg Q4H PRN ORAL agitation 07/27/19 18:30 08/26/19 18:29 07/30/19 08:36 Sennosides (Senokot) 8.6 mg BIDPRN PRN ORAL Constipation 07/26/19 19:15 08/25/19 19:14 07/30/19 08:35 Sevelamer Carbonate (Renvela) 2,400 mg Q6HR ORAL 07/27/19 00:00 08/22/19 12:59 07/31/19 05:59 Lee Ann Hyatt M.D. Jul 31, 2019 11:55
[2019-07-31 11:57] VITALS: BP 100/52
--- NOTE | 2019-07-31 14:04 | Surgery Progress Note ---
Surgery Progress Note Subjective Procedure Performed 1. excision of scrotal lesion - aborted Symptoms: improved, tolerating diet, passing flatus Objective Last 24 Hour Vital Signs Date Time Temp Pulse Resp B/P (MAP) Pulse Ox O2 Delivery O2 Flow Rate FiO2 07/31/19 11:57 97.1 82 20 100/52 (68) 96 07/31/19 11:42 82 07/31/19 09:10 86 121/82 07/31/19 09:00 Room Air 07/31/19 08:20 87 20 95 Room Air 21 07/31/19 08:00 96.8 86 20 121/82 (95) 95 07/31/19 07:50 85 07/31/19 05:59 149/74 07/31/19 05:58 149/74 07/31/19 04:00 83 07/31/19 04:00 97.7 82 16 149/74 (99) 95 07/31/19 00:04 84 07/31/19 00:00 97.2 83 16 158/78 (104) 96 07/30/19 21:42 135/62 07/30/19 21:42 82 135/62 07/30/19 21:01 Room Air 07/30/19 20:00 97.2 82 17 135/62 (86) 96 07/30/19 20:00 82 07/30/19 19:00 81 20 96 Room Air 21 07/30/19 16:00 96.8 80 19 120/86 (97) 100 07/30/19 15:30 86 07/30/19 15:01 128/69 I&O Intake and Output 07/30/19 07/31/19 19:00 07:00 # Voids 1 1 Dressing: saturated Wound: clean Cardiovascular: RSR Respiratory: clear Abdomen: soft, non-tender, present bowel sounds Extremities: no edema, no tenderness, no cyanosis Laboratory Tests Test 07/31/19 06:45 White Blood Count 6.1 K/UL (4.8-10.8) Red Blood Count 3.06 M/UL (4.70-6.10) L Hemoglobin 10.3 G/DL (14.2-18.0) L Hematocrit 31.1 % (42.0-52.0) L Mean Corpuscular Volume 102 FL (80-99) H Mean Corpuscular Hemoglobin 33.8 PG (27.0-31.0) H Mean Corpuscular Hemoglobin Concent 33.3 G/DL (32.0-36.0) Red Cell Distribution Width 11.9 % (11.6-14.8) Platelet Count 105 K/UL (150-450) L Mean Platelet Volume 11.1 FL (6.5-10.1) H Neutrophils (%) (Auto) 72.2 % (45.0-75.0) Lymphocytes (%) (Auto) 14.8 % (20.0-45.0) L Monocytes (%) (Auto) 9.0 % (1.0-10.0) Eosinophils (%) (Auto) 3.4 % (0.0-3.0) H Basophils (%) (Auto) 0.7 % (0.0-2.0) Sodium Level 147 MMOL/L (136-145) H Potassium Level 4.8 MMOL/L (3.5-5.1) Chloride Level 105 MMOL/L (98-107) Carbon Dioxide Level 34 MMOL/L (21-32) H Anion Gap 8 mmol/L (5-15) Blood Urea Nitrogen 78 mg/dL (7-18) H Creatinine 11.3 MG/DL (0.55-1.30) H Estimat Glomerular Filtration Rate 5.8 mL/min (>60) Glucose Level 109 MG/DL (74-106) H Calcium Level 9.1 MG/DL (8.5-10.1) Plan Problems: (1) Scrotal lesion Assessment & Plan: Continue with 3 times daily dressings okay for bacitracin and Xeroform gauze (2) Cardiac arrest Assessment & Plan: Etiology unknown pending echo appreciate cardiology input Continue current care extubated abg okay diet monitoring d/c planning thank you Thank you will follow with recommendations Zenon Galloway Jul 31, 2019 14:04
--- NOTE | 2019-07-31 14:12 | NUR ---
NURSE NOTES: PT IS STABLE, LEFT UNIT TO MRI, WAITING TO COME BACK.
--- NOTE | 2019-07-31 14:30 | NUR ---
07/31...Concerning MRI, again pt unable to stay asleep and stay still, even with 1 mg Ativan IV sedation. RN Afsoon informed.
--- NOTE | 2019-07-31 14:40 | Nephrology Progress Note ---
Assessment/Plan Problem List: (1) ESRD (end stage renal disease) (2) Acute respiratory failure (3) Cardiac arrest (4) Diabetes mellitus (5) Cardiomyopathy Assessment interoperative cardiac arrest Cardiomyopathy and Low ejfx ESRD- high K BP low at this time s/p Asystole in OR Plan MRI of Brain PENDING Neuro Eval Pending adjust BP meds dosages dialysis - next 07/31 add Phos binder and adjust dose Digoxin adjust BP meds self extubated 07/[address] eval PRN BP meds adjust bp meds dose HD next 07/28 2D echo noted per orders Subjective ROS Limited/Unobtainable: No Constitutional: Reports: malaise, weakness Objective Objective Last 24 Hour Vital Signs Date Time Temp Pulse Resp B/P (MAP) Pulse Ox O2 Delivery O2 Flow Rate FiO2 07/31/19 14:00 100/52 07/31/19 11:57 97.1 82 20 100/52 (68) 96 07/31/19 11:42 82 07/31/19 09:10 86 121/82 07/31/19 09:00 Room Air 07/31/19 08:20 87 20 95 Room Air 21 07/31/19 08:00 96.8 86 20 121/82 (95) 95 07/31/19 07:50 85 07/31/19 05:59 149/74 07/31/19 05:58 149/74 07/31/19 04:00 83 07/31/19 04:00 97.7 82 16 149/74 (99) 95 07/31/19 00:04 84 07/31/19 00:00 97.2 83 16 158/78 (104) 96 07/30/19 21:42 135/62 07/30/19 21:42 82 135/62 07/30/19 21:01 Room Air 07/30/19 20:00 97.2 82 17 135/62 (86) 96 07/30/19 20:00 82 07/30/19 19:00 81 20 96 Room Air 21 07/30/19 16:00 96.8 80 19 120/86 (97) 100 07/30/19 15:30 86 07/30/19 15:01 128/69 Intake and Output 07/30/19 07/31/19 19:00 07:00 # Voids 1 1 Laboratory Tests 07/31/19 06:45: White Blood Count 6.1, Red Blood Count 3.06L, Hemoglobin 10.3L, Hematocrit 31.1L , Mean Corpuscular Volume 102H, Mean Corpuscular Hemoglobin 33.8H, Mean Corpuscular Hemoglobin Concent 33.3, Red Cell Distribution Width 11.9, Platelet Count 105L, Mean Platelet Volume 11.1H, Neutrophils (%) (Auto) 72.2, Lymphocytes (%) (Auto) 14.8L, Monocytes (%) (Auto) 9.0, Eosinophils (%) (Auto) 3.4H, Basophils (%) (Auto) 0.7, Sodium Level 147H, Potassium Level 4.8, Chloride Level 105, Carbon Dioxide Level 34H, Anion Gap 8, Blood Urea Nitrogen 78H, Creatinine 11.3H, Estimat Glomerular Filtration Rate 5.8, Glucose Level 109H, Calcium Level 9.1 Height (Feet): 5 Height (Inches): 5.50 Weight (Pounds): 145 General Appearance: no apparent distress, lethargic, confused Cardiovascular: normal rate Respiratory/Chest: decreased breath sounds Abdomen: distended Objective no change Daniel Delgadillo MD Jul 31, 2019 14:40
--- NOTE | 2019-07-31 14:48 | NUR ---
NURSE NOTES: pt backed from MRI, per technical training manager GIANCARLO, they couldn't do MRI, Dr CHAVEZ notified, no new order to RN. Will continue to monitor.
[2019-07-31 15:46] VITALS: BP 123/57
--- NOTE | 2019-07-31 17:47 | Internal Med Progress Note ---
Subjective Date of Service: Jul 31, 2019 Physician Name AnaMichael Attending Physician Zuhair Singleton MD Current Medications Medications (Trade) Dose Ordered Sig/David Route PRN Reason Start Time Stop Time Status Last Admin Dose Admin Acetaminophen (Tylenol) 650 mg Q4H PRN ORAL Fever 07/26/19 19:15 08/15/19 19:14 Acetaminophen (Tylenol) 650 mg Q4H PRN RECTAL FEVER 07/26/19 19:15 08/15/19 19:14 Albuterol/ Ipratropium (Albuterol/ Ipratropium) 3 ml Q4H PRN HHN Shortness of Breath 07/28/19 15:15 08/01/19 15:14 Bacitracin (Bacitracin 15gm tube) 1 applic THREE TIMES A DAY TOPIC 07/27/19 09:00 08/21/19 08:59 07/31/19 12:52 Carvedilol (Coreg) 12.5 mg EVERY 12 HOURS ORAL 07/31/19 21:00 08/17/19 09:59 Dextrose (Dextrose 50%) 25 ml Q30M PRN IV Hypoglycemia 07/26/19 19:30 08/15/19 13:59 Dextrose (Dextrose 50%) 50 ml Q30M PRN IV Hypoglycemia 07/26/19 19:30 08/15/19 13:59 Docusate Sodium (Colace) 100 mg THREE TIMES A DAY ORAL 07/27/19 09:00 08/25/19 12:59 07/31/19 12:52 Heparin Sodium (Porcine) (Heparin 5000 units/ml) 5,000 units EVERY 8 HOURS SUBQ 07/26/19 22:00 08/15/19 13:59 Hydralazine HCl (Apresoline) 10 mg Q4H PRN IV bp over 160 syst 07/26/19 19:15 08/15/19 19:14 Hydralazine HCl (Apresoline) 10 mg Q8HR ORAL 07/31/19 22:00 08/18/19 18:29 Metoclopramide HCl (Reglan) 10 mg Q8H PRN IVP Nausea & Vomiting 07/26/19 19:15 08/20/19 19:14 Nitroglycerin (Ntg) 1 patch Q24H TDERMAL 07/27/19 06:00 08/19/19 05:59 07/31/19 05:59 Pantoprazole (Protonix) 40 mg BID ORAL 07/27/19 09:00 08/25/19 08:59 07/31/19 09:10 Polyethylene Glycol (Miralax) 17 gm BEDTIME ORAL 07/31/19 21:00 08/30/19 20:59 Risperidone (RisperDAL) 0.5 mg Q4H PRN ORAL agitation 07/27/19 18:30 08/26/19 18:29 07/30/19 08:36 Sennosides (Senokot) 8.6 mg BIDPRN PRN ORAL Constipation 07/26/19 19:15 08/25/19 19:14 07/30/19 08:35 Sevelamer Carbonate (Renvela) 2,400 mg Q6HR ORAL 07/27/19 00:00 08/22/19 12:59 07/31/19 12:52 Allergies: Coded Allergies: LISINOPRIL (Verified Allergy, Severe, Shortness of Breath, 07/02/19) THROAT SWELLS UP PENICILLINS (Verified Allergy, Severe, throat swelling, 07/17/19) tolerated Ancef x1 07/16/19 Uncoded Allergies: shellfish (Allergy, Severe, 02/06/19) shortness of breath, vomiting, throat swelling ROS Limited/Unobtainable: No Constitutional: Reports: no symptoms HEENT: Reports: no symptoms Cardiovascular: Reports: no symptoms Respiratory: Reports: no symptoms Gastrointestinal/Abdominal: Reports: no symptoms Genitourinary: Reports: no symptoms Neurologic/Psychiatric: Reports: no symptoms Subjective 49 YO M admitted for scrotal fistulotomy. S/P cardiac arrest. Self extubated . Cover for Sonia Singleton. Less confused; more alert Objective Last Vital Signs Date Time Temp Pulse Resp B/P (MAP) Pulse Ox O2 Delivery O2 Flow Rate FiO2 07/31/19 15:46 97.2 83 20 123/57 (79) 97 07/31/19 09:00 Room Air 07/31/19 08:20 21 07/26/19 20:00 2.0 Laboratory Tests Test 07/31/19 06:45 White Blood Count 6.1 K/UL (4.8-10.8) Red Blood Count 3.06 M/UL (4.70-6.10) L Hemoglobin 10.3 G/DL (14.2-18.0) L Hematocrit 31.1 % (42.0-52.0) L Mean Corpuscular Volume 102 FL (80-99) H Mean Corpuscular Hemoglobin 33.8 PG (27.0-31.0) H Mean Corpuscular Hemoglobin Concent 33.3 G/DL (32.0-36.0) Red Cell Distribution Width 11.9 % (11.6-14.8) Platelet Count 105 K/UL (150-450) L Mean Platelet Volume 11.1 FL (6.5-10.1) H Neutrophils (%) (Auto) 72.2 % (45.0-75.0) Lymphocytes (%) (Auto) 14.8 % (20.0-45.0) L Monocytes (%) (Auto) 9.0 % (1.0-10.0) Eosinophils (%) (Auto) 3.4 % (0.0-3.0) H Basophils (%) (Auto) 0.7 % (0.0-2.0) Sodium Level 147 MMOL/L (136-145) H Potassium Level 4.8 MMOL/L (3.5-5.1) Chloride Level 105 MMOL/L (98-107) Carbon Dioxide Level 34 MMOL/L (21-32) H Anion Gap 8 mmol/L (5-15) Blood Urea Nitrogen 78 mg/dL (7-18) H Creatinine 11.3 MG/DL (0.55-1.30) H Estimat Glomerular Filtration Rate 5.8 mL/min (>60) Glucose Level 109 MG/DL (74-106) H Calcium Level 9.1 MG/DL (8.5-10.1) Intake and Output 07/30/19 07/31/19 19:00 07:00 # Voids 1 1 Objective PHYSICAL EXAMINATION: GENERAL: The patient is well-developed well-nourished male, intubated and sedated in the intensive care unit. CHEST: nasal canula; Diffuse coarse breath sounds bilaterally without wheezes CARDIOVASCULAR: Regular rhythm and rate. S1, S2 are normal without murmurs, rubs, or gallops. ABDOMEN: Soft, nontender, nondistended. Positive bowel sounds. No evidence of hepatosplenomegaly. Currently, no rebound or guarding noted. EXTREMITIES: Negative for clubbing, cyanosis, edema. NEUROLOGIC: Unable to assess. Assessment/Plan Assessment/Plan ASSESSMENT: This is a 49-year-old male. 1. Scrotal fistula. 2. Status post cardiac arrest. 3. Renal failure. 4. Hypertension. 5. Gout. 6. End stage renal disease on hemodialysis. 7. Cardiomyopathy 8. Systolic CHF 9. dysphagia 10. Altered mental status TREATMENT: 1. Scrotal fistula. Surgery was aborted on 07/16/2019. Follow recommendations of Surgery, Dr. Galloway. 2. Status post cardiac arrest. The patient is S/P self-extubation 07/18/19. A Cardiology consultation has been obtained with Dr. Emmanuel Cortés. Follow recommendations of Cardiology. 3. End stage renal disease. A Nephrology consultation has been obtained with Dr. Daniel Delgadillo. Hemodialysis 07/22/19. Follow recommendations of Nephrology. 4. Hypertension. 5. Gout. 6. PATRICK status 7. Failed swallow eval-patient pulled out NGT. GI=Dr Delarosa 8. Calorie count in progress 9. Neurology consult=Dr Christie out of town; Dr Patel notified 10. Await MRI brain 11. Discharge to [facility] after MRI Michael Perez MD Jul 31, 2019 17:47
--- NOTE | 2019-07-31 17:55 | Cardiology Progress Note ---
Assessment/Plan Assessment/Plan 1. Status cardiac arrest, asystolic in origin. 2. Reported history of dilated cardiomyopathy that had improved in October 2018. 3. Hypertension, poorly controlled. 4. Hyperlipidemia. 5. End-stage renal disease, on hemodialysis. 6. History of systolic heart failure previously. 7. Lisinopril and penicillin allergy. 8. Diabetes mellitus. 9. Secondary hyperparathyroidism. 10. History of asthma. 11. Anemia, secondary to end-stage renal disease. 12. post arrest evidence for cardiomyopathy resolved on echo 07/27/2018 c/w takatsubos cm minro trop abn with out a peak or lorri to suggest acs an in della settign of renal failure is not specific tele personally reviewed labs noted bp increased cannot take acei due to allergy s/p dialysis now olanned 1 liter uf dvt ppx heparin rn reported on initial admission to ic[facility] pt with food vomit post arrest , aspiration may be a possibility ? Isordil and hydralazine for cm echo on 07/27/2019 showed sig improvement of cm suggestive of takotsubo cardiomyopathy neuro zapata appear worse Subjective ROS Limited/Unobtainable: Yes Subjective confused sleeping during dialysis Objective Last 24 Hour Vital Signs Date Time Temp Pulse Resp B/P (MAP) Pulse Ox O2 Delivery O2 Flow Rate FiO2 07/31/19 15:46 97.2 83 20 123/57 (79) 97 07/31/19 14:00 100/52 07/31/19 11:57 97.1 82 20 100/52 (68) 96 07/31/19 11:42 82 07/31/19 09:10 86 121/82 07/31/19 09:00 Room Air 07/31/19 08:20 87 20 95 Room Air 21 07/31/19 08:00 96.8 86 20 121/82 (95) 95 07/31/19 07:50 85 07/31/19 05:59 149/74 07/31/19 05:58 149/74 07/31/19 04:00 83 07/31/19 04:00 97.7 82 16 149/74 (99) 95 07/31/19 00:04 84 07/31/19 00:00 97.2 83 16 158/78 (104) 96 07/30/19 21:42 135/62 07/30/19 21:42 82 135/62 07/30/19 21:01 Room Air 07/30/19 20:00 97.2 82 17 135/62 (86) 96 07/30/19 20:00 82 07/30/19 19:00 81 20 96 Room Air 21 General Appearance: no apparent distress, patient on isolation Neck: supple Cardiovascular: normal rate Respiratory/Chest: lungs clear - ant Abdomen: normal bowel sounds, non tender, soft Extremities: no swelling Intake and Output 07/30/19 07/31/19 19:00 07:00 # Voids 1 1 Laboratory Tests Test 07/31/19 06:45 White Blood Count 6.1 K/UL (4.8-10.8) Red Blood Count 3.06 M/UL (4.70-6.10) L Hemoglobin 10.3 G/DL (14.2-18.0) L Hematocrit 31.1 % (42.0-52.0) L Mean Corpuscular Volume 102 FL (80-99) H Mean Corpuscular Hemoglobin 33.8 PG (27.0-31.0) H Mean Corpuscular Hemoglobin Concent 33.3 G/DL (32.0-36.0) Red Cell Distribution Width 11.9 % (11.6-14.8) Platelet Count 105 K/UL (150-450) L Mean Platelet Volume 11.1 FL (6.5-10.1) H Neutrophils (%) (Auto) 72.2 % (45.0-75.0) Lymphocytes (%) (Auto) 14.8 % (20.0-45.0) L Monocytes (%) (Auto) 9.0 % (1.0-10.0) Eosinophils (%) (Auto) 3.4 % (0.0-3.0) H Basophils (%) (Auto) 0.7 % (0.0-2.0) Sodium Level 147 MMOL/L (136-145) H Potassium Level 4.8 MMOL/L (3.5-5.1) Chloride Level 105 MMOL/L (98-107) Carbon Dioxide Level 34 MMOL/L (21-32) H Anion Gap 8 mmol/L (5-15) Blood Urea Nitrogen 78 mg/dL (7-18) H Creatinine 11.3 MG/DL (0.55-1.30) H Estimat Glomerular Filtration Rate 5.8 mL/min (>60) Glucose Level 109 MG/DL (74-106) H Calcium Level 9.1 MG/DL (8.5-10.1) Emmanuel Cortés MD Jul 31, 2019 17:55
--- NOTE | 2019-07-31 19:00 | Progress Note ---
DATE: 07/31/2019 SUBJECTIVE: The patient much calmer, sleep, waxing and waning consciousness, arousable, requires risperidone p.r.n. for agitation. MENTAL STATUS EXAMINATION: The patient is alert and oriented times self. Mood is anxious to agitation. Affect is flat. Thought process, there is a paucity of thought content. Thought content, no suicidal or homicidal ideation. Cognition is impaired. Insight and judgment is impaired. ASSESSMENT: Stable. PLAN: 1. We will continue risperidone as needed. 2. The patient lacks capacity to make decisions. 3. Discussed with the nurse. Rc Perdomo M.D. DR: Taz JOB#: [id number] CC:
--- NOTE | 2019-07-31 19:48 | NUR ---
HAND-OFF: Report given to JOCE HOLMAN. Pt is awake and stable. HD finished with 1lit out put.
--- NOTE | 2019-07-31 19:55 | NUR ---
NURSE NOTES: Hemodialysis finished and pt had 1 L removed
[2019-07-31 20:00] VITALS: BP 127/63
--- NOTE | 2019-07-31 20:00 | NUR ---
NURSE NOTES: Received pt from JOCE Rasmussen. Pt is awake in bed, resting, in semi fowlers, HOB elevated for aspiration precautions. pt is on bilateral soft wrist restraints, skin beneath restraints intact, sensation intact and asymptomatic, no redness. Repositioned pt. Dressing on R groin clean, dry and intact. sacral area showed small opening in mid sacral region/ IV patent. No signs of cardiac or respiratory distress. Call light within reach, bed is locked and lowest position, bed alarm on. Will continue to follow plans of care and monitor pt.
[2019-07-31] MEDS: Carvedilol 12.5mg tab ORAL SCH (21:00)
[2019-07-31] MEDS: Miralax 17gm pkt ORAL SCH (21:00)
--- NOTE | 2019-07-31 21:00 | NUR ---
NURSE NOTES: Sacral area has small opening mid sacral. pictures uploaded, optifoam and barrier applied. Initiated wound care protocol. Turning and repositioning frequently as pt is on restraints- will continue to monitor
[2019-07-31] MEDS: HydrALAZINE 10mg Tab ORAL SCH (21:40)
[2019-08-01] VITALS: BP 121/80
[2019-08-01] MEDS: Renvela 800mg Pkt ORAL SCH ×5 (00:08→23:14)
[2019-08-01 04:00] VITALS: BP 147/78
[2019-08-01] MEDS: Heparin 5000 units/ml inj SUBQ SCH ×3 (06:00→21:12)
[2019-08-01] MEDS: HydrALAZINE 10mg Tab ORAL SCH ×3 (06:51→21:12)
[2019-08-01] MEDS: Nitroglycerin Patch 0.4mg TDERMAL SCH (06:52)
--- NOTE | 2019-08-01 07:29 | NUR ---
NURSE NOTES: Received pt from RIVER HOBSON, Pt is awake and alert, pt is in RA, no SOB or acute respiratory distress noted. Pt has intact iv access RFA 20G SL. No complain of pain at this moment. A COMMUNICATION SPEC is feeding pt. Pt is on continues heart monitoring. all needs attended, bed is locked and is in the lowest position, call light within easy reach. will continue to monitor.
[2019-08-01 07:48] LABS: BASOPHILS % (AUTO) 0.8 % (0.0-2.0); EOSINOPHILS % (AUTO) 3.5 % (0.0-3.0); HEMATOCRIT 33.1 % (42.0-52.0); HEMOGLOBIN 10.9 G/DL (14.2-18.0); LYMPHOCYTES % (AUTO) 16.9 % (20.0-45.0); MEAN CORPUSCULAR VOLUME 103 FL (80-99); MONOCYTES % (AUTO) 8.9 % (1.0-10.0); NEUTROPHILS % (AUTO) 69.9 % (45.0-75.0); PLATELET COUNT 104 K/UL (150-450); RED BLOOD COUNT 3.23 M/UL (4.70-6.10)
[2019-08-01 08:00] VITALS: BP 153/69
--- NOTE | 2019-08-01 08:05 | NUR ---
HAND-OFF: Report given to JOCE Rasmussen.
[2019-08-01 08:36] LABS: ALANINE AMINOTRANSFERASE 9 U/L (12-78); ALBUMIN 2.9 G/DL (3.4-5.0); ALKALINE PHOSPHATASE 103 U/L (46-116); ASPARTATE AMINO TRANSFERASE 17 U/L (15-37); BILIRUBIN,TOTAL 0.4 MG/DL (0.2-1.0); PHOSPHORUS 4.6 MG/DL (2.5-4.9)
[2019-08-01 08:40] LABS: ANION GAP 5 mmol/L (5-15); BLOOD UREA NITROGEN 43 mg/dL (7-18); CALCIUM 9.3 MG/DL (8.5-10.1); CARBON DIOXIDE 37 MMOL/L (21-32); CHLORIDE 99 MMOL/L (98-107); POTASSIUM 4.4 MMOL/L (3.5-5.1); SODIUM 141 MMOL/L (136-145)
[2019-08-01] MEDS: Docusate 100mg cap ORAL SCH ×3 (08:55→17:40)
[2019-08-01] MEDS: Carvedilol 12.5mg tab ORAL SCH ×2 (08:55→21:12)
[2019-08-01] MEDS: Sennosides 8.6mg tab ORAL PRN ×2 (08:55→17:40)
[2019-08-01] MEDS: Bacitracin Oint 15gm Tube TOPIC SCH ×3 (08:59→17:40)
--- NOTE | 2019-08-01 09:37 | Surgery Progress Note ---
Surgery Progress Note Subjective Procedure Performed 1. excision of scrotal lesion - aborted Additional Comments no acute events comfortable stable labs okay still confused but improving Objective Last 24 Hour Vital Signs Date Time Temp Pulse Resp B/P (MAP) Pulse Ox O2 Delivery O2 Flow Rate FiO2 08/01/19 09:00 Room Air 08/01/19 08:55 86 147/78 08/01/19 08:00 97.9 82 18 153/69 (97) 98 08/01/19 07:37 84 08/01/19 06:52 147/78 08/01/19 06:51 147/78 08/01/19 04:00 97.9 83 18 147/78 (101) 94 08/01/19 04:00 86 08/01/19 00:00 97.7 86 20 121/80 (94) 94 08/01/19 00:00 94 07/31/19 21:40 147/90 07/31/19 21:00 92 147/90 07/31/19 21:00 Room Air 07/31/19 20:00 88 07/31/19 20:00 97.9 92 18 127/63 (84) 94 07/31/19 16:48 84 07/31/19 15:46 97.2 83 20 123/57 (79) 97 07/31/19 14:00 100/52 07/31/19 11:57 97.1 82 20 100/52 (68) 96 07/31/19 11:42 82 I&O Intake and Output 07/31/19 08/01/19 19:00 07:00 Intake Total 250 ml 1000 ml Balance 250 ml 1000 ml Intake Oral 250 ml Hemodialysis 1000 ml Dressing: saturated Wound: clean Cardiovascular: RSR Respiratory: clear Abdomen: soft, non-tender, present bowel sounds Extremities: no edema, no tenderness, no cyanosis Laboratory Tests Test 08/01/19 06:49 White Blood Count 5.0 K/UL (4.8-10.8) Red Blood Count 3.23 M/UL (4.70-6.10) L Hemoglobin 10.9 G/DL (14.2-18.0) L Hematocrit 33.1 % (42.0-52.0) L Mean Corpuscular Volume 103 FL (80-99) H Mean Corpuscular Hemoglobin 33.8 PG (27.0-31.0) H Mean Corpuscular Hemoglobin Concent 32.9 G/DL (32.0-36.0) Red Cell Distribution Width 12.0 % (11.6-14.8) Platelet Count 104 K/UL (150-450) L Mean Platelet Volume 12.2 FL (6.5-10.1) H Neutrophils (%) (Auto) 69.9 % (45.0-75.0) Lymphocytes (%) (Auto) 16.9 % (20.0-45.0) L Monocytes (%) (Auto) 8.9 % (1.0-10.0) Eosinophils (%) (Auto) 3.5 % (0.0-3.0) H Basophils (%) (Auto) 0.8 % (0.0-2.0) Sodium Level 141 MMOL/L (136-145) Potassium Level 4.4 MMOL/L (3.5-5.1) Chloride Level 99 MMOL/L (98-107) Carbon Dioxide Level 37 MMOL/L (21-32) H Anion Gap 5 mmol/L (5-15) Blood Urea Nitrogen 43 mg/dL (7-18) H Creatinine 8.0 MG/DL (0.55-1.30) H Estimat Glomerular Filtration Rate 8.6 mL/min (>60) Glucose Level 88 MG/DL (74-106) Uric Acid 4.0 MG/DL (2.6-7.2) Calcium Level 9.3 MG/DL (8.5-10.1) Phosphorus Level 4.6 MG/DL (2.5-4.9) Magnesium Level 2.3 MG/DL (1.8-2.4) Total Bilirubin 0.4 MG/DL (0.2-1.0) Direct Bilirubin Pending Aspartate Amino Transf (AST/SGOT) 17 U/L (15-37) Alanine Aminotransferase (ALT/SGPT) 9 U/L (12-78) L Alkaline Phosphatase 103 U/L (46-116) Total Protein 7.0 G/DL (6.4-8.2) Albumin 2.9 G/DL (3.4-5.0) L Digoxin Level 1.4 NG/ML (0.5-2.0) Plan Problems: (1) Scrotal lesion Assessment & Plan: Continue with 3 times daily dressings okay for bacitracin and Xeroform gauze (2) Cardiac arrest Assessment & Plan: Etiology unknown pending echo appreciate cardiology input Continue current care overall improving cognitively intact labs okay diet improving d/c planning thank you Thank you will follow with recommendations Zenon Galloway Aug 01, 2019 09:37
[2019-08-01 09:55] LABS: BILIRUBIN,DIRECT < 0.1 MG/DL (0.0-0.3)
--- NOTE | 2019-08-01 10:00 | General Progress Note ---
Assessment/Plan Status: stable, progressing Assessment/Plan: Assessment/Plan Problems: (1) Scrotal lesion ICD Codes: N50.9 - Disorder of male genital organs, unspecified SNOMED: 64767211 (2) Cardiac arrest ICD Codes: I46.9 - Cardiac arrest, cause unspecified SNOMED: 053615316 (3) Anemia ICD Codes: D64.9 - Anemia, unspecified SNOMED: 553195505 (4) Constipation ICD Codes: K59.00 - Constipation, unspecified (5) N/V, TF intolerance Assessment/Plan follow up cardiology recs prn transfusions HD per nephrology ppi eating much better will hold NGT or GT feeding plans for now dc planning per primary team Subjective ROS Limited/Unobtainable: No Allergies: Coded Allergies: LISINOPRIL (Verified Allergy, Severe, Shortness of Breath, 07/02/19) THROAT SWELLS UP PENICILLINS (Verified Allergy, Severe, throat swelling, 07/17/19) tolerated Ancef x1 07/16/19 Uncoded Allergies: shellfish (Allergy, Severe, 02/06/19) shortness of breath, vomiting, throat swelling Objective Last 24 Hour Vital Signs Date Time Temp Pulse Resp B/P (MAP) Pulse Ox O2 Delivery O2 Flow Rate FiO2 08/01/19 09:00 Room Air 08/01/19 08:55 86 147/78 08/01/19 08:00 97.9 82 18 153/69 (97) 98 08/01/19 07:37 84 08/01/19 06:52 147/78 08/01/19 06:51 147/78 08/01/19 04:00 97.9 83 18 147/78 (101) 94 08/01/19 04:00 86 08/01/19 00:00 97.7 86 20 121/80 (94) 94 08/01/19 00:00 94 07/31/19 21:40 147/90 07/31/19 21:00 92 147/90 07/31/19 21:00 Room Air 07/31/19 20:00 88 07/31/19 20:00 97.9 92 18 127/63 (84) 94 07/31/19 16:48 84 07/31/19 15:46 97.2 83 20 123/57 (79) 97 07/31/19 14:00 100/52 07/31/19 11:57 97.1 82 20 100/52 (68) 96 07/31/19 11:42 82 Intake and Output 07/31/19 08/01/19 19:00 07:00 Intake Total 250 ml 1000 ml Balance 250 ml 1000 ml Intake Oral 250 ml Hemodialysis 1000 ml Laboratory Tests 08/01/19 06:49: White Blood Count 5.0, Red Blood Count 3.23L, Hemoglobin 10.9L, Hematocrit 33.1L , Mean Corpuscular Volume 103H, Mean Corpuscular Hemoglobin 33.8H, Mean Corpuscular Hemoglobin Concent 32.9, Red Cell Distribution Width 12.0, Platelet Count 104L, Mean Platelet Volume 12.2H, Neutrophils (%) (Auto) 69.9, Lymphocytes (%) (Auto) 16.9L, Monocytes (%) (Auto) 8.9, Eosinophils (%) (Auto) 3.5H, Basophils (%) (Auto) 0.8, Sodium Level 141, Potassium Level 4.4, Chloride Level 99, Carbon Dioxide Level 37H, Anion Gap 5, Blood Urea Nitrogen 43H, Creatinine 8.0H, Estimat Glomerular Filtration Rate 8.6, Glucose Level 88, Uric Acid 4.0, Calcium Level 9.3, Phosphorus Level 4.6, Magnesium Level 2.3, Total Bilirubin 0.4, Direct Bilirubin < 0.1, Aspartate Amino Transf (AST/SGOT) 17, Alanine Aminotransferase (ALT/SGPT) 9L, Alkaline Phosphatase 103, Total Protein 7.0, Albumin 2.9L, Digoxin Level 1.4 Height (Feet): 5 Height (Inches): 5.50 Weight (Pounds): 148 General Appearance: alert EENT: normal ENT inspection Neck: supple Cardiovascular: normal rate Respiratory/Chest: lungs clear Abdomen: normal bowel sounds, non tender, soft Extremities: non-tender Richy Delarosa MD Aug 01, 2019 10:00
--- NOTE | 2019-08-01 11:40 | Internal Med Progress Note ---
Subjective Date of Service: Aug 01, 2019 Physician Name AnaMichael Attending Physician Zuhair Singleton MD Current Medications Medications (Trade) Dose Ordered Sig/David Route PRN Reason Start Time Stop Time Status Last Admin Dose Admin Acetaminophen (Tylenol) 650 mg Q4H PRN ORAL Fever 07/26/19 19:15 08/15/19 19:14 Acetaminophen (Tylenol) 650 mg Q4H PRN RECTAL FEVER 07/26/19 19:15 08/15/19 19:14 Albuterol/ Ipratropium (Albuterol/ Ipratropium) 3 ml Q4H PRN HHN Shortness of Breath 07/28/19 15:15 08/01/19 15:14 Bacitracin (Bacitracin 15gm tube) 1 applic THREE TIMES A DAY TOPIC 07/27/19 09:00 08/21/19 08:59 08/01/19 08:59 Carvedilol (Coreg) 12.5 mg EVERY 12 HOURS ORAL 07/31/19 21:00 08/17/19 09:59 08/01/19 08:55 Dextrose (Dextrose 50%) 25 ml Q30M PRN IV Hypoglycemia 07/26/19 19:30 08/15/19 13:59 Dextrose (Dextrose 50%) 50 ml Q30M PRN IV Hypoglycemia 07/26/19 19:30 08/15/19 13:59 Docusate Sodium (Colace) 100 mg THREE TIMES A DAY ORAL 07/27/19 09:00 08/25/19 12:59 08/01/19 08:55 Heparin Sodium (Porcine) (Heparin 5000 units/ml) 5,000 units EVERY 8 HOURS SUBQ 07/26/19 22:00 08/15/19 13:59 Hydralazine HCl (Apresoline) 10 mg Q4H PRN IV bp over 160 syst 07/26/19 19:15 08/15/19 19:14 Hydralazine HCl (Apresoline) 10 mg Q8HR ORAL 07/31/19 22:00 08/18/19 18:29 08/01/19 06:51 Metoclopramide HCl (Reglan) 10 mg Q8H PRN IVP Nausea & Vomiting 07/26/19 19:15 08/20/19 19:14 Nitroglycerin (Ntg) 1 patch Q24H TDERMAL 07/27/19 06:00 08/19/19 05:59 08/01/19 06:52 Pantoprazole (Protonix) 40 mg BID ORAL 07/27/19 09:00 08/25/19 08:59 08/01/19 08:55 Polyethylene Glycol (Miralax) 17 gm BEDTIME ORAL 07/31/19 21:00 08/30/19 20:59 07/31/19 21:00 Risperidone (RisperDAL) 0.5 mg Q4H PRN ORAL agitation 07/27/19 18:30 08/26/19 18:29 07/30/19 08:36 Sennosides (Senokot) 8.6 mg BIDPRN PRN ORAL Constipation 07/26/19 19:15 08/25/19 19:14 08/01/19 08:55 Sevelamer Carbonate (Renvela) 2,400 mg Q6HR ORAL 07/27/19 00:00 08/22/19 12:59 08/01/19 06:51 Allergies: Coded Allergies: LISINOPRIL (Verified Allergy, Severe, Shortness of Breath, 07/02/19) THROAT SWELLS UP PENICILLINS (Verified Allergy, Severe, throat swelling, 07/17/19) tolerated Ancef x1 07/16/19 Uncoded Allergies: shellfish (Allergy, Severe, 02/06/19) shortness of breath, vomiting, throat swelling ROS Limited/Unobtainable: No Constitutional: Reports: no symptoms HEENT: Reports: no symptoms Cardiovascular: Reports: no symptoms Respiratory: Reports: no symptoms Gastrointestinal/Abdominal: Reports: no symptoms Genitourinary: Reports: no symptoms Neurologic/Psychiatric: Reports: no symptoms Subjective 49 YO M admitted for scrotal fistulotomy. S/P cardiac arrest. Self extubated . Cover for Sonia Singleton. Less confused; more alert. MRI postponed due to patient movement in scanner Objective Last Vital Signs Date Time Temp Pulse Resp B/P (MAP) Pulse Ox O2 Delivery O2 Flow Rate FiO2 08/01/19 09:00 Room Air 08/01/19 08:55 86 147/78 08/01/19 08:00 97.9 18 98 07/31/19 08:20 21 07/26/19 20:00 2.0 Laboratory Tests Test 08/01/19 06:49 White Blood Count 5.0 K/UL (4.8-10.8) Red Blood Count 3.23 M/UL (4.70-6.10) L Hemoglobin 10.9 G/DL (14.2-18.0) L Hematocrit 33.1 % (42.0-52.0) L Mean Corpuscular Volume 103 FL (80-99) H Mean Corpuscular Hemoglobin 33.8 PG (27.0-31.0) H Mean Corpuscular Hemoglobin Concent 32.9 G/DL (32.0-36.0) Red Cell Distribution Width 12.0 % (11.6-14.8) Platelet Count 104 K/UL (150-450) L Mean Platelet Volume 12.2 FL (6.5-10.1) H Neutrophils (%) (Auto) 69.9 % (45.0-75.0) Lymphocytes (%) (Auto) 16.9 % (20.0-45.0) L Monocytes (%) (Auto) 8.9 % (1.0-10.0) Eosinophils (%) (Auto) 3.5 % (0.0-3.0) H Basophils (%) (Auto) 0.8 % (0.0-2.0) Sodium Level 141 MMOL/L (136-145) Potassium Level 4.4 MMOL/L (3.5-5.1) Chloride Level 99 MMOL/L (98-107) Carbon Dioxide Level 37 MMOL/L (21-32) H Anion Gap 5 mmol/L (5-15) Blood Urea Nitrogen 43 mg/dL (7-18) H Creatinine 8.0 MG/DL (0.55-1.30) H Estimat Glomerular Filtration Rate 8.6 mL/min (>60) Glucose Level 88 MG/DL (74-106) Uric Acid 4.0 MG/DL (2.6-7.2) Calcium Level 9.3 MG/DL (8.5-10.1) Phosphorus Level 4.6 MG/DL (2.5-4.9) Magnesium Level 2.3 MG/DL (1.8-2.4) Total Bilirubin 0.4 MG/DL (0.2-1.0) Direct Bilirubin < 0.1 MG/DL (0.0-0.3) Aspartate Amino Transf (AST/SGOT) 17 U/L (15-37) Alanine Aminotransferase (ALT/SGPT) 9 U/L (12-78) L Alkaline Phosphatase 103 U/L (46-116) Total Protein 7.0 G/DL (6.4-8.2) Albumin 2.9 G/DL (3.4-5.0) L Digoxin Level 1.4 NG/ML (0.5-2.0) Intake and Output 07/31/19 08/01/19 19:00 07:00 Intake Total 250 ml 1000 ml Balance 250 ml 1000 ml Intake Oral 250 ml Hemodialysis 1000 ml Objective PHYSICAL EXAMINATION: GENERAL: The patient is well-developed well-nourished male, intubated and sedated in the intensive care unit. CHEST: nasal canula; Diffuse coarse breath sounds bilaterally without wheezes CARDIOVASCULAR: Regular rhythm and rate. S1, S2 are normal without murmurs, rubs, or gallops. ABDOMEN: Soft, nontender, nondistended. Positive bowel sounds. No evidence of hepatosplenomegaly. Currently, no rebound or guarding noted. EXTREMITIES: Negative for clubbing, cyanosis, edema. NEUROLOGIC: Unable to assess. Assessment/Plan Assessment/Plan ASSESSMENT: This is a 49-year-old male. 1. Scrotal fistula. 2. Status post cardiac arrest. 3. Renal failure. 4. Hypertension. 5. Gout. 6. End stage renal disease on hemodialysis. 7. Cardiomyopathy 8. Systolic CHF 9. dysphagia 10. Altered mental status TREATMENT: 1. Scrotal fistula. Surgery was aborted on 07/16/2019. Follow recommendations of Surgery, Dr. Galloway. 2. Status post cardiac arrest. The patient is S/P self-extubation 07/18/19. A Cardiology consultation has been obtained with Dr. Emmanuel Cortés. Follow recommendations of Cardiology. 3. End stage renal disease. A Nephrology consultation has been obtained with Dr. Daniel Delgadillo. Hemodialysis 07/22/19. Follow recommendations of Nephrology. 4. Hypertension. 5. Gout. 6. PATRICK status 7. Failed swallow eval-patient pulled out NGT. GI=Dr Delarosa 8. Calorie count in progress 9. Neurology consult=Dr Patel notified 10. Await MRI brain 11. Discharge to [facility] after MRI Michael Perez MD Aug 01, 2019 11:40
[2019-08-01 11:42] VITALS: BP 148/65
--- NOTE | 2019-08-01 12:06 | Nephrology Progress Note ---
Assessment/Plan Problem List: (1) ESRD (end stage renal disease) (2) Acute respiratory failure (3) Cardiac arrest (4) Diabetes mellitus (5) Cardiomyopathy Assessment interoperative cardiac arrest Cardiomyopathy and Low ejfx ESRD- high K BP low at this time s/p Asystole in OR Plan MRI of Brain PENDING Neuro Eval Pending adjust BP meds dosages dialysis - next 08/02 add Phos binder and adjust dose Digoxin adjust BP meds self extubated 07/[address] eval PRN BP meds adjust bp meds dose HD next 07/28 2D echo noted per orders Subjective ROS Limited/Unobtainable: No Constitutional: Reports: malaise Objective Objective Last 24 Hour Vital Signs Date Time Temp Pulse Resp B/P (MAP) Pulse Ox O2 Delivery O2 Flow Rate FiO2 08/01/19 11:42 98.0 85 18 148/65 (92) 98 08/01/19 09:00 Room Air 08/01/19 08:55 86 147/78 08/01/19 08:00 97.9 82 18 153/69 (97) 98 08/01/19 07:37 84 08/01/19 06:52 147/78 08/01/19 06:51 147/78 08/01/19 04:00 97.9 83 18 147/78 (101) 94 08/01/19 04:00 86 08/01/19 00:00 97.7 86 20 121/80 (94) 94 08/01/19 00:00 94 07/31/19 21:40 147/90 07/31/19 21:00 92 147/90 07/31/19 21:00 Room Air 07/31/19 20:00 88 07/31/19 20:00 97.9 92 18 127/63 (84) 94 07/31/19 16:48 84 07/31/19 15:46 97.2 83 20 123/57 (79) 97 07/31/19 14:00 100/52 Intake and Output 07/31/19 08/01/19 19:00 07:00 Intake Total 250 ml 1000 ml Balance 250 ml 1000 ml Intake Oral 250 ml Hemodialysis 1000 ml Laboratory Tests 08/01/19 06:49: White Blood Count 5.0, Red Blood Count 3.23L, Hemoglobin 10.9L, Hematocrit 33.1L , Mean Corpuscular Volume 103H, Mean Corpuscular Hemoglobin 33.8H, Mean Corpuscular Hemoglobin Concent 32.9, Red Cell Distribution Width 12.0, Platelet Count 104L, Mean Platelet Volume 12.2H, Neutrophils (%) (Auto) 69.9, Lymphocytes (%) (Auto) 16.9L, Monocytes (%) (Auto) 8.9, Eosinophils (%) (Auto) 3.5H, Basophils (%) (Auto) 0.8, Sodium Level 141, Potassium Level 4.4, Chloride Level 99, Carbon Dioxide Level 37H, Anion Gap 5, Blood Urea Nitrogen 43H, Creatinine 8.0H, Estimat Glomerular Filtration Rate 8.6, Glucose Level 88, Uric Acid 4.0, Calcium Level 9.3, Phosphorus Level 4.6, Magnesium Level 2.3, Total Bilirubin 0.4, Direct Bilirubin < 0.1, Aspartate Amino Transf (AST/SGOT) 17, Alanine Aminotransferase (ALT/SGPT) 9L, Alkaline Phosphatase 103, Total Protein 7.0, Albumin 2.9L, Digoxin Level 1.4 Height (Feet): 5 Height (Inches): 5.50 Weight (Pounds): 148 General Appearance: no apparent distress, confused Cardiovascular: normal rate Respiratory/Chest: decreased breath sounds Abdomen: soft Objective no change Daniel Delgadillo MD Aug 01, 2019 12:06
--- NOTE | 2019-08-01 12:39 | Pulmonology Progress Note ---
Assessment/Plan Problems: (1) Cardiac arrest (2) Acute respiratory failure (3) ESRD (end stage renal disease) (4) Diabetes mellitus (5) Cardiomyopathy (6) Hypertension Assessment/Plan no new events, all reviewed MRI was not done yesterday, HD by nephrology today monitor BP titrate cardiac meds sliding scale diabetic diet MRI of brain pending for today, after 1 mg of ativan. Pt woke up in middle of the procedure with .5 mg po ativan Subjective ROS Limited/Unobtainable: No Constitutional: Reports: no symptoms HEENT: Repors: no symptoms Respiratory: Reports: no symptoms Allergies: Coded Allergies: LISINOPRIL (Verified Allergy, Severe, Shortness of Breath, 07/02/19) THROAT SWELLS UP PENICILLINS (Verified Allergy, Severe, throat swelling, 07/17/19) tolerated Ancef x1 07/16/19 Uncoded Allergies: shellfish (Allergy, Severe, 02/06/19) shortness of breath, vomiting, throat swelling Objective Last 24 Hour Vital Signs Date Time Temp Pulse Resp B/P (MAP) Pulse Ox O2 Delivery O2 Flow Rate FiO2 08/01/19 11:42 98.0 85 18 148/65 (92) 98 08/01/19 09:00 Room Air 08/01/19 08:55 86 147/78 08/01/19 08:00 97.9 82 18 153/69 (97) 98 08/01/19 07:37 84 08/01/19 06:52 147/78 08/01/19 06:51 147/78 08/01/19 04:00 97.9 83 18 147/78 (101) 94 08/01/19 04:00 86 08/01/19 00:00 97.7 86 20 121/80 (94) 94 08/01/19 00:00 94 07/31/19 21:40 147/90 07/31/19 21:00 92 147/90 07/31/19 21:00 Room Air 07/31/19 20:00 88 07/31/19 20:00 97.9 92 18 127/63 (84) 94 07/31/19 16:48 84 07/31/19 15:46 97.2 83 20 123/57 (79) 97 07/31/19 14:00 100/52 Intake and Output 07/31/19 08/01/19 19:00 07:00 Intake Total 250 ml 1000 ml Balance 250 ml 1000 ml Intake Oral 250 ml Hemodialysis 1000 ml General Appearance: WD/WN HEENT: normocephalic, atraumatic Respiratory/Chest: chest wall non-tender, lungs clear Cardiovascular: normal peripheral pulses, normal rate Abdomen: normal bowel sounds, soft, non tender Extremities: no cyanosis, no clubbing Laboratory Tests 08/01/19 06:49: White Blood Count 5.0, Red Blood Count 3.23L, Hemoglobin 10.9L, Hematocrit 33.1L , Mean Corpuscular Volume 103H, Mean Corpuscular Hemoglobin 33.8H, Mean Corpuscular Hemoglobin Concent 32.9, Red Cell Distribution Width 12.0, Platelet Count 104L, Mean Platelet Volume 12.2H, Neutrophils (%) (Auto) 69.9, Lymphocytes (%) (Auto) 16.9L, Monocytes (%) (Auto) 8.9, Eosinophils (%) (Auto) 3.5H, Basophils (%) (Auto) 0.8, Sodium Level 141, Potassium Level 4.4, Chloride Level 99, Carbon Dioxide Level 37H, Anion Gap 5, Blood Urea Nitrogen 43H, Creatinine 8.0H, Estimat Glomerular Filtration Rate 8.6, Glucose Level 88, Uric Acid 4.0, Calcium Level 9.3, Phosphorus Level 4.6, Magnesium Level 2.3, Total Bilirubin 0.4, Direct Bilirubin < 0.1, Aspartate Amino Transf (AST/SGOT) 17, Alanine Aminotransferase (ALT/SGPT) 9L, Alkaline Phosphatase 103, Total Protein 7.0, Albumin 2.9L, Digoxin Level 1.4 Current Medications Medications (Trade) Dose Ordered Sig/David Route PRN Reason Start Time Stop Time Status Last Admin Dose Admin Acetaminophen (Tylenol) 650 mg Q4H PRN ORAL Fever 07/26/19 19:15 08/15/19 19:14 Acetaminophen (Tylenol) 650 mg Q4H PRN RECTAL FEVER 07/26/19 19:15 08/15/19 19:14 Albuterol/ Ipratropium (Albuterol/ Ipratropium) 3 ml Q4H PRN HHN Shortness of Breath 07/28/19 15:15 08/01/19 15:14 Bacitracin (Bacitracin 15gm tube) 1 applic THREE TIMES A DAY TOPIC 07/27/19 09:00 08/21/19 08:59 08/01/19 08:59 Carvedilol (Coreg) 12.5 mg EVERY 12 HOURS ORAL 07/31/19 21:00 08/17/19 09:59 08/01/19 08:55 Dextrose (Dextrose 50%) 25 ml Q30M PRN IV Hypoglycemia 07/26/19 19:30 08/15/19 13:59 Dextrose (Dextrose 50%) 50 ml Q30M PRN IV Hypoglycemia 07/26/19 19:30 08/15/19 13:59 Docusate Sodium (Colace) 100 mg THREE TIMES A DAY ORAL 07/27/19 09:00 08/25/19 12:59 08/01/19 08:55 Heparin Sodium (Porcine) (Heparin 5000 units/ml) 5,000 units EVERY 8 HOURS SUBQ 07/26/19 22:00 08/15/19 13:59 Hydralazine HCl (Apresoline) 10 mg Q4H PRN IV bp over 160 syst 07/26/19 19:15 08/15/19 19:14 Hydralazine HCl (Apresoline) 10 mg Q8HR ORAL 07/31/19 22:00 08/18/19 18:29 08/01/19 06:51 Metoclopramide HCl (Reglan) 10 mg Q8H PRN IVP Nausea & Vomiting 07/26/19 19:15 08/20/19 19:14 Nitroglycerin (Ntg) 1 patch Q24H TDERMAL 07/27/19 06:00 08/19/19 05:59 08/01/19 06:52 Pantoprazole (Protonix) 40 mg BID ORAL 07/27/19 09:00 08/25/19 08:59 08/01/19 08:55 Polyethylene Glycol (Miralax) 17 gm BEDTIME ORAL 07/31/19 21:00 08/30/19 20:59 07/31/19 21:00 Risperidone (RisperDAL) 0.5 mg Q4H PRN ORAL agitation 07/27/19 18:30 08/26/19 18:29 07/30/19 08:36 Sennosides (Senokot) 8.6 mg BIDPRN PRN ORAL Constipation 07/26/19 19:15 08/25/19 19:14 08/01/19 08:55 Sevelamer Carbonate (Renvela) 2,400 mg Q6HR ORAL 07/27/19 00:00 08/22/19 12:59 08/01/19 06:51 Juan Carlos Soto MD Aug 01, 2019 12:39
--- NOTE | 2019-08-01 12:54 | NUR ---
NURSE NOTES: JOCE RODRIGUEZ is aware about HD for tomorrow. she will F/U.
--- NOTE | 2019-08-01 13:51 | NUR ---
CASE MANAGEMENT:REVIEW 08/01/19 SI: CARDIAC ARREST. RESPIRATORY FAILURE 98.0 85 18 148/65 98% ON RA BUN+43 CR+8.0 IS: HYDRALAZINE PO Q8HRS COREG PO Q12 BACITRACIN TID PROTONIX PO BID NTG PATCH Q24 HEPARIN SQ Q8HRS : TELEMETRY STATUS DCP: PATIENT HAS BEEN REFERRED TO AND ACCEPTED AT [facility]...PENDING DISCHARGE
--- NOTE | 2019-08-01 13:56 | NUR ---
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
--- NOTE | 2019-08-01 14:30 | NUR ---
RD ASSESSMENT & RECOMMENDATIONS SEE CARE ACTIVITY FOR COMPLETE ASSESSMENT DAILY ESTIMATED NEEDS: Needs based on Pulmonary, surgical wound, ESRD on HD 69.7kg 25-35 kcals/kg [id number] total kcals 1.25-1.8 g protein/kg 87-125 g total protein Fluid per MD, on HD NUTRITION DIAGNOSIS: Swallowing difficulty r/t respiratory status as evidenced by s/p cardiac arrest in OR for scrotal lesion, s/p extubation, s/p pulling out NGT, now on pureed moist, NTL, now w/ improved PO intake CURRENT DIET:Renal, pureed moist w/ NTL + Nepro TID w/ meals PO DIET RECOMMENDATIONS: RENAL DIET (texture per STAINED GLASS PAINTER) ADDITIONAL RECOMMENDATIONS: 1) Continue NEPRO TID 2) Nonhealing scrotal wound: Add ARAM BID + nephrovite daily -> new wound @ sacrum? (08/01) f/up w/ wound eval 4) Monitor lytes 5) CALLIE COUNT X 48 HRS complete 07/27: see above result 6) Calibrated bed scale wt 7) Monitor for continued good PO intake- now eating 75-100% of meals
--- NOTE | 2019-08-01 15:51 | NUR ---
NURSE NOTES:WOUND CARE NOTES:Pt's skin assessed in presence of primary nurse. scattered areas of hyperpigmentation noted to hollie cleft ,R and L buttocks. Dry peeling skin noted . No erythema noted. Pt denied tenderness when buttocks including sacral area palpated.Both heels are boggy but blanchable and non-tender when palpated. No evidence of skin breakdown noted. Pt moves freely in bed and per Primary nurse pt ambulates with Asst to bathroom. Tx.Plan: Apply Moisture Barrier paste to buttocks. Cover sacral area with Optifoam drsg. Change every 3 days and prn. Apply Cavilon Skin Barrier to both heels. Cover each heel with Optifoam drsg. Changee very 7 days and prn. Off-load heels with pillow while in bed.
[2019-08-01 16:00] VITALS: BP 128/62
--- NOTE | 2019-08-01 17:14 | Infectious Diseases Prog Note ---
Assessment/Plan Assessment/Plan Assessment: Probable aspiration PNA, sp rx -07/20 CXR: Mild pulmonary vascular congestion suspected. Bilateral pleural effusions. -07/17 CXR: Bilateral pleural effusion and mild interstitial congestion and hazy parenchymal opacity present. Cardiac arrest asystole during surgical procedure -07/16 CXR: pulmonary edema Non healing scrotal wound; bx showed: ruptured epidermal inclusion cyst with associated abscess formation -07/16 sp attempted excision but procedure aborted due to cardiac arrest VDRF 07/16; extubated 07/18 Afebrile Mild leukocytosis, SP ESRD on HD via L arm AVF Dm2 HTN internal hemorrhoids Plan: -Cont to monitor off abx -07/23 SP LEvaquin #7 -07/16 SP Ancef x1 -f/u cx -Monitor CBC/CMP, temperatures -aspiration precautions -wound care per surgical team -Sx, Neprho, pulm f/u Thank you for this consultation. Will continue to follow along with you. Discussed with RN Subjective Allergies: Coded Allergies: LISINOPRIL (Verified Allergy, Severe, Shortness of Breath, 07/02/19) THROAT SWELLS UP PENICILLINS (Verified Allergy, Severe, throat swelling, 07/17/19) tolerated Ancef x1 07/16/19 Uncoded Allergies: shellfish (Allergy, Severe, 02/06/19) shortness of breath, vomiting, throat swelling Subjective afebrile no leukocytosis Objective Vital Signs Last 24 Hour Vital Signs Date Time Temp Pulse Resp B/P (MAP) Pulse Ox O2 Delivery O2 Flow Rate FiO2 08/01/19 16:00 98.4 83 20 128/62 (84) 95 08/01/19 15:29 84 08/01/19 13:00 148/65 08/01/19 11:42 98.0 85 18 148/65 (92) 98 08/01/19 11:32 87 08/01/19 09:00 Room Air 08/01/19 08:55 86 147/78 08/01/19 08:00 97.9 82 18 153/69 (97) 98 08/01/19 07:37 84 08/01/19 06:52 147/78 08/01/19 06:51 147/78 08/01/19 04:00 97.9 83 18 147/78 (101) 94 08/01/19 04:00 86 08/01/19 00:00 97.7 86 20 121/80 (94) 94 08/01/19 00:00 94 07/31/19 21:40 147/90 07/31/19 21:00 92 147/90 07/31/19 21:00 Room Air 07/31/19 20:00 88 07/31/19 20:00 97.9 92 18 127/63 (84) 94 Height (Feet): 5 Height (Inches): 5.50 Weight (Pounds): 148 Objective General Appearance: no apparent distress Neck: supple Respiratory: normal breath sounds, no respiratory distress Cardiovascular: normal rate Gastrointestinal: non tender, soft, normal bowel sounds, non-distended Neurologic: confused Skin: scrotal wound packed Laboratory Tests Test 08/01/19 06:49 White Blood Count 5.0 K/UL (4.8-10.8) Red Blood Count 3.23 M/UL (4.70-6.10) L Hemoglobin 10.9 G/DL (14.2-18.0) L Hematocrit 33.1 % (42.0-52.0) L Mean Corpuscular Volume 103 FL (80-99) H Mean Corpuscular Hemoglobin 33.8 PG (27.0-31.0) H Mean Corpuscular Hemoglobin Concent 32.9 G/DL (32.0-36.0) Red Cell Distribution Width 12.0 % (11.6-14.8) Platelet Count 104 K/UL (150-450) L Mean Platelet Volume 12.2 FL (6.5-10.1) H Neutrophils (%) (Auto) 69.9 % (45.0-75.0) Lymphocytes (%) (Auto) 16.9 % (20.0-45.0) L Monocytes (%) (Auto) 8.9 % (1.0-10.0) Eosinophils (%) (Auto) 3.5 % (0.0-3.0) H Basophils (%) (Auto) 0.8 % (0.0-2.0) Sodium Level 141 MMOL/L (136-145) Potassium Level 4.4 MMOL/L (3.5-5.1) Chloride Level 99 MMOL/L (98-107) Carbon Dioxide Level 37 MMOL/L (21-32) H Anion Gap 5 mmol/L (5-15) Blood Urea Nitrogen 43 mg/dL (7-18) H Creatinine 8.0 MG/DL (0.55-1.30) H Estimat Glomerular Filtration Rate 8.6 mL/min (>60) Glucose Level 88 MG/DL (74-106) Uric Acid 4.0 MG/DL (2.6-7.2) Calcium Level 9.3 MG/DL (8.5-10.1) Phosphorus Level 4.6 MG/DL (2.5-4.9) Magnesium Level 2.3 MG/DL (1.8-2.4) Total Bilirubin 0.4 MG/DL (0.2-1.0) Direct Bilirubin < 0.1 MG/DL (0.0-0.3) Aspartate Amino Transf (AST/SGOT) 17 U/L (15-37) Alanine Aminotransferase (ALT/SGPT) 9 U/L (12-78) L Alkaline Phosphatase 103 U/L (46-116) Total Protein 7.0 G/DL (6.4-8.2) Albumin 2.9 G/DL (3.4-5.0) L Digoxin Level 1.4 NG/ML (0.5-2.0) Current Medications Medications (Trade) Dose Ordered Sig/David Route PRN Reason Start Time Stop Time Status Last Admin Dose Admin Acetaminophen (Tylenol) 650 mg Q4H PRN ORAL Fever 07/26/19 19:15 08/15/19 19:14 Acetaminophen (Tylenol) 650 mg Q4H PRN RECTAL FEVER 07/26/19 19:15 08/15/19 19:14 Bacitracin (Bacitracin 15gm tube) 1 applic THREE TIMES A DAY TOPIC 07/27/19 09:00 08/21/19 08:59 08/01/19 12:40 Carvedilol (Coreg) 12.5 mg EVERY 12 HOURS ORAL 07/31/19 21:00 08/17/19 09:59 08/01/19 08:55 Dextrose (Dextrose 50%) 25 ml Q30M PRN IV Hypoglycemia 07/26/19 19:30 08/15/19 13:59 Dextrose (Dextrose 50%) 50 ml Q30M PRN IV Hypoglycemia 07/26/19 19:30 08/15/19 13:59 Docusate Sodium (Colace) 100 mg THREE TIMES A DAY ORAL 07/27/19 09:00 08/25/19 12:59 08/01/19 12:40 Heparin Sodium (Porcine) (Heparin 5000 units/ml) 5,000 units EVERY 8 HOURS SUBQ 07/26/19 22:00 08/15/19 13:59 Hydralazine HCl (Apresoline) 10 mg Q4H PRN IV bp over 160 syst 07/26/19 19:15 08/15/19 19:14 Hydralazine HCl (Apresoline) 10 mg Q8HR ORAL 07/31/19 22:00 08/18/19 18:29 08/01/19 13:00 Metoclopramide HCl (Reglan) 10 mg Q8H PRN IVP Nausea & Vomiting 07/26/19 19:15 08/20/19 19:14 Nitroglycerin (Ntg) 1 patch Q24H TDERMAL 07/27/19 06:00 08/19/19 05:59 08/01/19 06:52 Pantoprazole (Protonix) 40 mg BID ORAL 07/27/19 09:00 08/25/19 08:59 08/01/19 08:55 Polyethylene Glycol (Miralax) 17 gm BEDTIME ORAL 07/31/19 21:00 08/30/19 20:59 07/31/19 21:00 Risperidone (RisperDAL) 0.5 mg Q4H PRN ORAL agitation 07/27/19 18:30 08/26/19 18:29 07/30/19 08:36 Sennosides (Senokot) 8.6 mg BIDPRN PRN ORAL Constipation 07/26/19 19:15 08/25/19 19:14 08/01/19 08:55 Sevelamer Carbonate (Renvela) 2,400 mg Q6HR ORAL 07/27/19 00:00 08/22/19 12:59 08/01/19 12:40 Lee Ann Hyatt M.D. Aug 01, 2019 17:14
--- NOTE | 2019-08-01 19:15 | NUR ---
NURSE NOTES: Received report from JOCE Rasmussen. Patient is asleep, arousable to voice, lying in semi stevenson's; resting comfortably. A/Ox1. No signs of pain nor acute distress noted. Checked IV site and flushed. No erythema, bleeding or infiltration noted. On bilateral soft wrist restraints, with good circulation, mobility and skin intact. Bed at lowest position, brakes on, siderails x3. Call light within reach. Will continue to monitor. Addendum: 08/01/19 at 2341 by Jaki Suh RN ROYA AV shunt noted for hemodialysis.
--- NOTE | 2019-08-01 19:36 | NUR ---
HAND-OFF: Report given to JUAN HOBSON. Pt is sleeping and stable. pt has BM today.
--- NOTE | 2019-08-01 19:50 | Consultation ---
Consult Note Consult Note NEUROLOGY CONSULTATION: HISTORY: Mr. Robson Nesbitt is a 49-year-old, black gentleman, of unknown handedness, who was referred to me for evaluation and management of alteration in his mental state. He does have a past history of hypertension, diabetes mellitus, dyslipidemia, coronary artery disease, congestive heart failure related to a cardiomyopathy, end-stage renal disease for which he is hemodialysis dependent, hyperparathyroidism, and chronic marijuana use. He was undergoing a surgical procedure for surgical drainage of a scrotal abscess when he apparently had cardiac arrest. He apparently became asystolic followed by ventricular fibrillation followed by ventricular tachycardia and eventually sinus tachycardia. The duration of cardiac life support was approximately 14 minutes. He received atropine and 130 J shock during the procedure. Since then the patient has had an altered mental state with some waxing and waning of his level of arousal. This consultation was requested to evaluate the patient for his altered mental state. PAST HISTORY: Hypertension, diabetes mellitus, dyslipidemia, coronary artery disease, congestive heart failure related to a cardiomyopathy, end-stage renal disease for which he is hemodialysis dependent, hyperparathyroidism, and chronic marijuana use. FAMILY HISTORY: His mother has heart disease and colon cancer. His father had a stroke. A sister has diabetes. PERSONAL HISTORY: Home: Prior to this hospitalization he lives with his at home. Work: He is unemployed. He is unable to tell me what kind of work he did. Habits: There is no history of tobacco or alcohol use. He does use marijuana. PHYSICAL EXAMINATION: GENERAL: He is a well-developed, well-nourished, black gentleman exhibiting significant slowing of cerebration. VITAL SIGNS: Pulse: 82/min Blood pressure: 128/62 mmHg Respirations: 20/min Temperature: 98.4 F HEAD: Normocephalic and atraumatic NECK: No neck rigidity was observed. EENT examination: Benign NEUROLOGICAL EXAMINATION: MENTAL STATUS EXAMINATION: He was somnolent but could be aroused. When aroused he was awake but not completely alert. He was oriented to self only. He was unable to cooperate for further mental status testing. SPEECH: He had a moderate dysarthria. LANGUAGE: He had problems with comprehension, naming, and expression of language. CRANIAL NERVE EXAMINATION: II: He did blink to threat on both sides. He was unable to cooperate for visual field testing. III, IV, and : Extraocular movements were full. Pupils were 3 mm in diameter equal, round, regular, and reactive to light. V: Facial sensations were normal, and the temporales, masseters, and pterygoids functioned normally. VII: He had a mild right seventh central facial paresis. VIII: He seemed to be able to hear well and no nystagmus was observed. IX: The palate moved symmetrically on phonation. X: No hoarseness of voice was observed. XI: The sternocleidomastoids and trapezii functioned normally. XII: The tongue was in the midline without any fasciculations or atrophy. MOTOR SYSTEM: The tone was increased in all 4 extremities with a mild degree of spasticity. Examination of muscle mass revealed no focal wasting. Examination of power was impossible to perform an individual muscle groups as he was unable to cooperate. He however had a definite right greater than left and lower extremity greater than upper extremity paresis. SENSORY EXAMINATION: He responded appropriately to painful stimuli but could not cooperate for other sensory modalities. REFLEXES: 2+ on the right and 1++ on the left at the biceps, triceps, brachioradialis, and knees. 0 at both ankles. The plantar responses were flexor bilaterally. COORDINATION: Could not be tested as he was unable to cooperate. STANCE: Could not be tested GAIT: Could not be tested DIAGNOSTIC IMPRESSION: 1. Mr. Robson Nesbitt is a 49-year-old, black gentleman, of unknown handedness, who on 07/16/2019 had a cardiac arrest for which ACLS was needed for approximately 14 minutes. Since then he has exhibited an alteration in his mental state. 2. On neurological examination, at this time, he is awake but not completely alert, is only oriented to self, and is unable to cooperate for further mental status testing. He also has a dysarthria and a mixed aphasia. He does have a right seventh central facial paresis. He also has a mildly spastic quadriparesis involving the right side more than the left in the lower extremities more than the upper extremities. His deep tendon reflexes are slightly brisker on the right side compared to the left. 3. His latest laboratory data reveal that he is anemic with a hemoglobin of 10.9 g, his BUN is elevated at 43, his creatinine is elevated at 8.0, his albumin is low at 2.9, and his folate is low at 7.6. 4. The patient's history and neurological examination are most consistent with an encephalopathy related to cerebral ischemia and now hypoxia during his cardiac event and in addition his chronic renal dysfunction. He also is exhibiting focal neurological dysfunction and may have had cerebral events of an ischemic nature during his cardiac arrest. RECOMMENDATIONS: 1. Agree with management thus far. 2. An MRI scan of the brain will be ordered to evaluate the patient for the present state of his intracranial pathology. 3. An EEG will be ordered to evaluate the patient for the degree and type of cerebral dysfunction. 4. Physical, occupational, and speech and language therapy, should significantly help the patient regain neurological function. Thank you for entrusting me with the care of Ms. Nesbitt. I shall follow him with you. Ike Patel M.D., M.S.P.H. Neurologist & Clinical Neurophysiologist Ike Patel MD Aug 01, 2019 19:50
[2019-08-01 20:00] VITALS: BP 150/80
[2019-08-01] MEDS: Miralax 17gm pkt ORAL SCH (21:13)
--- NOTE | 2019-08-01 22:48 | Psych Consult Progress Note ---
Psychiatry Progress Note Psychiatry Progress Note Medications Current Medications Medications (Trade) Dose Ordered Sig/David Route PRN Reason Start Time Stop Time Status Last Admin Dose Admin Acetaminophen (Tylenol) 650 mg Q4H PRN ORAL Fever 07/26/19 19:15 08/15/19 19:14 Acetaminophen (Tylenol) 650 mg Q4H PRN RECTAL FEVER 07/26/19 19:15 08/15/19 19:14 Bacitracin (Bacitracin 15gm tube) 1 applic THREE TIMES A DAY TOPIC 07/27/19 09:00 08/21/19 08:59 08/01/19 17:40 Carvedilol (Coreg) 12.5 mg EVERY 12 HOURS ORAL 07/31/19 21:00 08/17/19 09:59 08/01/19 21:12 Dextrose (Dextrose 50%) 25 ml Q30M PRN IV Hypoglycemia 07/26/19 19:30 08/15/19 13:59 Dextrose (Dextrose 50%) 50 ml Q30M PRN IV Hypoglycemia 07/26/19 19:30 08/15/19 13:59 Docusate Sodium (Colace) 100 mg THREE TIMES A DAY ORAL 07/27/19 09:00 08/25/19 12:59 08/01/19 17:40 Folic Acid (Folate) 1 mg DAILY ORAL 08/02/19 09:00 09/01/19 08:59 Heparin Sodium (Porcine) (Heparin 5000 units/ml) 5,000 units EVERY 8 HOURS SUBQ 07/26/19 22:00 08/15/19 13:59 Hydralazine HCl (Apresoline) 10 mg Q4H PRN IV bp over 160 syst 07/26/19 19:15 08/15/19 19:14 Hydralazine HCl (Apresoline) 10 mg Q8HR ORAL 07/31/19 22:00 08/18/19 18:29 08/01/19 21:12 Metoclopramide HCl (Reglan) 10 mg Q8H PRN IVP Nausea & Vomiting 07/26/19 19:15 08/20/19 19:14 Nitroglycerin (Ntg) 1 patch Q24H TDERMAL 07/27/19 06:00 08/19/19 05:59 08/01/19 06:52 Pantoprazole (Protonix) 40 mg BID ORAL 07/27/19 09:00 08/25/19 08:59 08/01/19 17:40 Polyethylene Glycol (Miralax) 17 gm BEDTIME ORAL 07/31/19 21:00 08/30/19 20:59 08/01/19 21:13 Risperidone (RisperDAL) 0.5 mg Q4H PRN ORAL agitation 07/27/19 18:30 08/26/19 18:29 07/30/19 08:36 Sennosides (Senokot) 8.6 mg BIDPRN PRN ORAL Constipation 07/26/19 19:15 08/25/19 19:14 08/01/19 17:40 Sevelamer Carbonate (Renvela) 2,400 mg Q6HR ORAL 07/27/19 00:00 08/22/19 12:59 08/01/19 17:40 Allergies: Coded Allergies: LISINOPRIL (Verified Allergy, Severe, Shortness of Breath, 07/02/19) THROAT SWELLS UP PENICILLINS (Verified Allergy, Severe, throat swelling, 07/17/19) tolerated Ancef x1 07/16/19 Uncoded Allergies: shellfish (Allergy, Severe, 02/06/19) shortness of breath, vomiting, throat swelling Objective Data Height (Feet): 5 Height (Inches): 5.50 Weight (Pounds): 148 Assessment/Plan Status: stable, progressing Rc Perdomo MD Aug 01, 2019 22:48
--- NOTE | 2019-08-01 23:48 | NUR ---
NURSE NOTES: Called [facility] and spoke with Amber to schedule for patient's hemodialysis tomorrow.
[2019-08-02] VITALS: BP 152/77
--- NOTE | 2019-08-02 03:37 | NUR ---
NURSE NOTES: Resting throughout the night. No significant change of condition noted. Addendum: 08/02/19 at 0338 by Jaki Suh RN Will continue to monitor.
[2019-08-02 04:00] VITALS: BP 148/83
[2019-08-02] MEDS: Heparin 5000 units/ml inj SUBQ SCH ×3 (05:03→22:00)
[2019-08-02] MEDS: Renvela 800mg Pkt ORAL SCH ×3 (05:04→18:00)
[2019-08-02] MEDS: HydrALAZINE 10mg Tab ORAL SCH ×3 (05:04→22:00)
[2019-08-02] MEDS: Nitroglycerin Patch 0.4mg TDERMAL SCH (05:05)
--- NOTE | 2019-08-02 07:22 | NUR ---
HAND-OFF: Report given to JOCE Mitchell. Plan of care endorsed.
--- NOTE | 2019-08-02 07:45 | NUR ---
NURSE NOTES: pt in bed on restrain. Pt is awake in bed. pt on classroom monitor, no signs of cardiac or respiratory distress at this time. Bed is locked and in lowest position. Call light is within reach. Food is at bedside will help feed pt. Will continue to follow plans of care for pt.
[2019-08-02 08:00] VITALS: BP 143/74
[2019-08-02] MEDS: Carvedilol 12.5mg tab ORAL SCH ×2 (09:00→21:00)
[2019-08-02] MEDS: Docusate 100mg cap ORAL SCH ×3 (09:18→18:00)
[2019-08-02] MEDS: Bacitracin Oint 15gm Tube TOPIC SCH ×3 (09:22→18:00)
--- NOTE | 2019-08-02 09:56 | General Progress Note ---
Assessment/Plan Status: stable, progressing Assessment/Plan: Assessment/Plan Problems: (1) Scrotal lesion ICD Codes: N50.9 - Disorder of male genital organs, unspecified SNOMED: 99150383 (2) Cardiac arrest ICD Codes: I46.9 - Cardiac arrest, cause unspecified SNOMED: 927109157 (3) Anemia ICD Codes: D64.9 - Anemia, unspecified SNOMED: 180720096 (4) Constipation ICD Codes: K59.00 - Constipation, unspecified (5) N/V, TF intolerance Assessment/Plan follow up cardiology recs prn transfusions HD per nephrology ppi eating much better will hold NGT or GT feeding plans for now neurology in put appreciated fu MRI dc planning per primary team Subjective ROS Limited/Unobtainable: Yes Allergies: Coded Allergies: LISINOPRIL (Verified Allergy, Severe, Shortness of Breath, 07/02/19) THROAT SWELLS UP PENICILLINS (Verified Allergy, Severe, throat swelling, 07/17/19) tolerated Ancef x1 07/16/19 Uncoded Allergies: shellfish (Allergy, Severe, 02/06/19) shortness of breath, vomiting, throat swelling Objective Last 24 Hour Vital Signs Date Time Temp Pulse Resp B/P (MAP) Pulse Ox O2 Delivery O2 Flow Rate FiO2 08/02/19 08:25 84 19 95 Room Air 21 08/02/19 08:00 97.5 84 20 143/74 (97) 95 08/02/19 05:05 148/83 08/02/19 05:04 148/83 08/02/19 04:00 78 08/02/19 04:00 97.3 80 16 148/83 (104) 97 08/02/19 00:00 79 08/02/19 00:00 97.3 80 16 152/77 (102) 95 08/01/19 21:12 150/80 08/01/19 21:12 84 150/80 08/01/19 21:00 Room Air 08/01/19 20:00 97.7 84 16 150/80 (103) 96 08/01/19 20:00 86 08/01/19 19:50 80 20 96 Room Air 21 08/01/19 16:00 98.4 83 20 128/62 (84) 95 08/01/19 15:29 84 08/01/19 13:00 148/65 08/01/19 11:42 98.0 85 18 148/65 (92) 98 08/01/19 11:32 87 Intake and Output 08/01/19 08/02/19 19:00 07:00 Intake Total 840 ml 120 ml Output Total 1 ml Balance 839 ml 120 ml Intake Oral 840 ml 120 ml Output Urine Total 1 ml # Voids 1 # Bowel Movements 1 1 Height (Feet): 5 Height (Inches): 5.50 Weight (Pounds): 152 General Appearance: alert EENT: normal ENT inspection Neck: supple Cardiovascular: normal rate Respiratory/Chest: decreased breath sounds Abdomen: normal bowel sounds, non tender, soft Extremities: non-tender Richy Delarosa MD Aug 02, 2019 09:56
--- NOTE | 2019-08-02 10:36 | Nephrology Progress Note ---
Assessment/Plan Problem List: (1) ESRD (end stage renal disease) (2) Acute respiratory failure (3) Cardiac arrest (4) Diabetes mellitus (5) Cardiomyopathy Assessment interoperative cardiac arrest Cardiomyopathy and Low ejfx ESRD- high K BP low at this time s/p Asystole in OR Plan Neuro Eval Noted EEG & MRI pending adjust BP meds dosages dialysis - next 08/02 add Phos binder and adjust dose Digoxin adjust BP meds self extubated 07/[address] eval PRN BP meds adjust bp meds dose HD next 07/28 2D echo noted per orders Neuro: The patient's history and neurological examination are most consistent with an encephalopathy related to cerebral ischemia and now hypoxia during his cardiac event and in addition his chronic renal dysfunction. He also is exhibiting focal neurological dysfunction and may have had cerebral events of an ischemic nature during his cardiac arrest. Subjective ROS Limited/Unobtainable: No Constitutional: Reports: malaise, weakness Objective Objective Last 24 Hour Vital Signs Date Time Temp Pulse Resp B/P (MAP) Pulse Ox O2 Delivery O2 Flow Rate FiO2 08/02/19 08:25 84 19 95 Room Air 21 08/02/19 08:00 97.5 84 20 143/74 (97) 95 08/02/19 05:05 148/83 08/02/19 05:04 148/83 08/02/19 04:00 78 08/02/19 04:00 97.3 80 16 148/83 (104) 97 08/02/19 00:00 79 08/02/19 00:00 97.3 80 16 152/77 (102) 95 08/01/19 21:12 150/80 08/01/19 21:12 84 150/80 08/01/19 21:00 Room Air 08/01/19 20:00 97.7 84 16 150/80 (103) 96 08/01/19 20:00 86 08/01/19 19:50 80 20 96 Room Air 21 08/01/19 16:00 98.4 83 20 128/62 (84) 95 08/01/19 15:29 84 08/01/19 13:00 148/65 08/01/19 11:42 98.0 85 18 148/65 (92) 98 08/01/19 11:32 87 Intake and Output 08/01/19 08/02/19 19:00 07:00 Intake Total 840 ml 120 ml Output Total 1 ml Balance 839 ml 120 ml Intake Oral 840 ml 120 ml Output Urine Total 1 ml # Voids 1 # Bowel Movements 1 1 Height (Feet): 5 Height (Inches): 5.50 Weight (Pounds): 152 General Appearance: confused Cardiovascular: normal rate Respiratory/Chest: decreased breath sounds Abdomen: soft Objective no change Daniel Delgadillo MD Aug 02, 2019 10:36
--- NOTE | 2019-08-02 10:36 | Infectious Diseases Prog Note ---
Assessment/Plan Assessment/Plan Assessment: Probable aspiration PNA, sp rx -07/20 CXR: Mild pulmonary vascular congestion suspected. Bilateral pleural effusions. -07/17 CXR: Bilateral pleural effusion and mild interstitial congestion and hazy parenchymal opacity present. Cardiac arrest asystole during surgical procedure -07/16 CXR: pulmonary edema Non healing scrotal wound; bx showed: ruptured epidermal inclusion cyst with associated abscess formation -07/16 sp attempted excision but procedure aborted due to cardiac arrest VDRF 07/16; extubated 07/18 Afebrile Mild leukocytosis, SP ESRD on HD via L arm AVF Dm2 HTN internal hemorrhoids Plan: -Cont to monitor off abx -07/23 SP LEvaquin #7 -07/16 SP Ancef x1 -f/u cx -Monitor CBC/CMP, temperatures -aspiration precautions -wound care per surgical team -Sx, Neprho, pulm f/u Thank you for this consultation. Will continue to follow along with you. Discussed with RN Subjective Allergies: Coded Allergies: LISINOPRIL (Verified Allergy, Severe, Shortness of Breath, 07/02/19) THROAT SWELLS UP PENICILLINS (Verified Allergy, Severe, throat swelling, 07/17/19) tolerated Ancef x1 07/16/19 Uncoded Allergies: shellfish (Allergy, Severe, 02/06/19) shortness of breath, vomiting, throat swelling Subjective afebrile no leukocytosis off abx Objective Vital Signs Last 24 Hour Vital Signs Date Time Temp Pulse Resp B/P (MAP) Pulse Ox O2 Delivery O2 Flow Rate FiO2 08/02/19 08:25 84 19 95 Room Air 21 08/02/19 08:00 97.5 84 20 143/74 (97) 95 08/02/19 05:05 148/83 08/02/19 05:04 148/83 08/02/19 04:00 78 08/02/19 04:00 97.3 80 16 148/83 (104) 97 08/02/19 00:00 79 08/02/19 00:00 97.3 80 16 152/77 (102) 95 08/01/19 21:12 150/80 08/01/19 21:12 84 150/80 08/01/19 21:00 Room Air 08/01/19 20:00 97.7 84 16 150/80 (103) 96 08/01/19 20:00 86 08/01/19 19:50 80 20 96 Room Air 21 08/01/19 16:00 98.4 83 20 128/62 (84) 95 08/01/19 15:29 84 08/01/19 13:00 148/65 08/01/19 11:42 98.0 85 18 148/65 (92) 98 08/01/19 11:32 87 Height (Feet): 5 Height (Inches): 5.50 Weight (Pounds): 152 Objective General Appearance: no apparent distress Neck: supple Respiratory: normal breath sounds, no respiratory distress Cardiovascular: normal rate Gastrointestinal: non tender, soft, normal bowel sounds, non-distended Neurologic: confused Skin: scrotal wound packed Current Medications Medications (Trade) Dose Ordered Sig/David Route PRN Reason Start Time Stop Time Status Last Admin Dose Admin Acetaminophen (Tylenol) 650 mg Q4H PRN ORAL Fever 07/26/19 19:15 08/15/19 19:14 Acetaminophen (Tylenol) 650 mg Q4H PRN RECTAL FEVER 07/26/19 19:15 08/15/19 19:14 Bacitracin (Bacitracin 15gm tube) 1 applic THREE TIMES A DAY TOPIC 07/27/19 09:00 08/21/19 08:59 08/02/19 09:22 Carvedilol (Coreg) 12.5 mg EVERY 12 HOURS ORAL 07/31/19 21:00 08/17/19 09:59 08/01/19 21:12 Dextrose (Dextrose 50%) 25 ml Q30M PRN IV Hypoglycemia 07/26/19 19:30 08/15/19 13:59 Dextrose (Dextrose 50%) 50 ml Q30M PRN IV Hypoglycemia 07/26/19 19:30 08/15/19 13:59 Docusate Sodium (Colace) 100 mg THREE TIMES A DAY ORAL 07/27/19 09:00 08/25/19 12:59 08/02/19 09:18 Folic Acid (Folate) 1 mg DAILY ORAL 08/02/19 09:00 09/01/19 08:59 08/02/19 09:18 Heparin Sodium (Porcine) (Heparin 5000 units/ml) 5,000 units EVERY 8 HOURS SUBQ 07/26/19 22:00 08/15/19 13:59 Hydralazine HCl (Apresoline) 10 mg Q4H PRN IV bp over 160 syst 07/26/19 19:15 08/15/19 19:14 Hydralazine HCl (Apresoline) 10 mg Q8HR ORAL 07/31/19 22:00 08/18/19 18:29 08/02/19 05:04 Metoclopramide HCl (Reglan) 10 mg Q8H PRN IVP Nausea & Vomiting 07/26/19 19:15 08/20/19 19:14 Nitroglycerin (Ntg) 1 patch Q24H TDERMAL 07/27/19 06:00 08/19/19 05:59 08/02/19 05:05 Pantoprazole (Protonix) 40 mg BID ORAL 07/27/19 09:00 08/25/19 08:59 08/02/19 09:18 Polyethylene Glycol (Miralax) 17 gm BEDTIME ORAL 07/31/19 21:00 08/30/19 20:59 08/01/19 21:13 Risperidone (RisperDAL) 0.5 mg Q4H PRN ORAL agitation 07/27/19 18:30 08/26/19 18:29 07/30/19 08:36 Sennosides (Senokot) 8.6 mg BIDPRN PRN ORAL Constipation 07/26/19 19:15 08/25/19 19:14 08/01/19 17:40 Sevelamer Carbonate (Renvela) 2,400 mg Q6HR ORAL 07/27/19 00:00 08/22/19 12:59 08/02/19 05:04 Lee Ann Hyatt M.D. Aug 02, 2019 10:36
--- NOTE | 2019-08-02 10:56 | Surgery Progress Note ---
Surgery Progress Note Subjective Procedure Performed 1. excision of scrotal lesion - aborted Symptoms: improved, pain absent, tolerating diet, passing flatus, BM Objective Last 24 Hour Vital Signs Date Time Temp Pulse Resp B/P (MAP) Pulse Ox O2 Delivery O2 Flow Rate FiO2 08/02/19 08:25 84 19 95 Room Air 21 08/02/19 08:00 97.5 84 20 143/74 (97) 95 08/02/19 08:00 83 08/02/19 05:05 148/83 08/02/19 05:04 148/83 08/02/19 04:00 78 08/02/19 04:00 97.3 80 16 148/83 (104) 97 08/02/19 00:00 79 08/02/19 00:00 97.3 80 16 152/77 (102) 95 08/01/19 21:12 150/80 08/01/19 21:12 84 150/80 08/01/19 21:00 Room Air 08/01/19 20:00 97.7 84 16 150/80 (103) 96 08/01/19 20:00 86 08/01/19 19:50 80 20 96 Room Air 21 08/01/19 16:00 98.4 83 20 128/62 (84) 95 08/01/19 15:29 84 08/01/19 13:00 148/65 08/01/19 11:42 98.0 85 18 148/65 (92) 98 08/01/19 11:32 87 I&O Intake and Output 08/01/19 08/02/19 19:00 07:00 Intake Total 840 ml 120 ml Output Total 1 ml Balance 839 ml 120 ml Intake Oral 840 ml 120 ml Output Urine Total 1 ml # Voids 1 # Bowel Movements 1 1 Dressing: dry Wound: clean Cardiovascular: RSR Respiratory: clear Abdomen: soft, non-tender, present bowel sounds, non-distended Extremities: no edema, no tenderness, no cyanosis Plan Problems: (1) Scrotal lesion Assessment & Plan: Continue with 3 times daily dressings okay for bacitracin and Xeroform gauze wound much improved 100% granulation tissue (2) Cardiac arrest Assessment & Plan: Etiology unknown pending echo appreciate cardiology input Continue current care overall improving cognitively intact labs okay diet improving d/c planning thank you Thank you will follow with recommendations Zenon Galloway Aug 02, 2019 10:56
[2019-08-02 12:00] VITALS: BP 143/74
[2019-08-02] MEDS ORDERED: LORazepam Inj 2mg/ml 1ml IV SCH ×2 (13:42→15:30)
--- NOTE | 2019-08-02 13:46 | Pulmonology Progress Note ---
Assessment/Plan Problems: (1) Cardiac arrest (2) Acute respiratory failure (3) ESRD (end stage renal disease) (4) Diabetes mellitus (5) Cardiomyopathy (6) Hypertension Assessment/Plan no new events, all reviewed MRI was not done yesterday, HD by nephrology today monitor BP titrate cardiac meds sliding scale diabetic diet MRI of brain pending for today again, Subjective ROS Limited/Unobtainable: No Constitutional: Reports: no symptoms HEENT: Repors: no symptoms Respiratory: Reports: no symptoms Allergies: Coded Allergies: LISINOPRIL (Verified Allergy, Severe, Shortness of Breath, 07/02/19) THROAT SWELLS UP PENICILLINS (Verified Allergy, Severe, throat swelling, 07/17/19) tolerated Ancef x1 07/16/19 Uncoded Allergies: shellfish (Allergy, Severe, 02/06/19) shortness of breath, vomiting, throat swelling Objective Last 24 Hour Vital Signs Date Time Temp Pulse Resp B/P (MAP) Pulse Ox O2 Delivery O2 Flow Rate FiO2 08/02/19 08:25 84 19 95 Room Air 21 08/02/19 08:00 97.5 84 20 143/74 (97) 95 08/02/19 08:00 83 08/02/19 05:05 148/83 08/02/19 05:04 148/83 08/02/19 04:00 78 08/02/19 04:00 97.3 80 16 148/83 (104) 97 08/02/19 00:00 79 08/02/19 00:00 97.3 80 16 152/77 (102) 95 08/01/19 21:12 150/80 08/01/19 21:12 84 150/80 08/01/19 21:00 Room Air 08/01/19 20:00 97.7 84 16 150/80 (103) 96 08/01/19 20:00 86 08/01/19 19:50 80 20 96 Room Air 21 08/01/19 16:00 98.4 83 20 128/62 (84) 95 08/01/19 15:29 84 Intake and Output 08/01/19 08/02/19 19:00 07:00 Intake Total 840 ml 120 ml Output Total 1 ml Balance 839 ml 120 ml Intake Oral 840 ml 120 ml Output Urine Total 1 ml # Voids 1 # Bowel Movements 1 1 General Appearance: WD/WN HEENT: normocephalic, atraumatic Respiratory/Chest: chest wall non-tender, normal breath sounds Cardiovascular: normal peripheral pulses, normal rate Abdomen: normal bowel sounds, no organomegaly Skin: no rash Neurologic/Psychiatric: 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 grossly normal, no motor/sensory deficits Current Medications Medications (Trade) Dose Ordered Sig/David Route PRN Reason Start Time Stop Time Status Last Admin Dose Admin Acetaminophen (Tylenol) 650 mg Q4H PRN ORAL Fever 07/26/19 19:15 08/15/19 19:14 Acetaminophen (Tylenol) 650 mg Q4H PRN RECTAL FEVER 07/26/19 19:15 08/15/19 19:14 Bacitracin (Bacitracin 15gm tube) 1 applic THREE TIMES A DAY TOPIC 07/27/19 09:00 08/21/19 08:59 08/02/19 12:34 Carvedilol (Coreg) 12.5 mg EVERY 12 HOURS ORAL 07/31/19 21:00 08/17/19 09:59 08/01/19 21:12 Dextrose (Dextrose 50%) 25 ml Q30M PRN IV Hypoglycemia 07/26/19 19:30 08/15/19 13:59 Dextrose (Dextrose 50%) 50 ml Q30M PRN IV Hypoglycemia 07/26/19 19:30 08/15/19 13:59 Docusate Sodium (Colace) 100 mg THREE TIMES A DAY ORAL 07/27/19 09:00 08/25/19 12:59 08/02/19 12:34 Folic Acid (Folate) 1 mg DAILY ORAL 08/02/19 09:00 09/01/19 08:59 08/02/19 09:18 Heparin Sodium (Porcine) (Heparin 5000 units/ml) 5,000 units EVERY 8 HOURS SUBQ 07/26/19 22:00 08/15/19 13:59 Hydralazine HCl (Apresoline) 10 mg Q4H PRN IV bp over 160 syst 07/26/19 19:15 08/15/19 19:14 Hydralazine HCl (Apresoline) 10 mg Q8HR ORAL 07/31/19 22:00 08/18/19 18:29 08/02/19 05:04 Lorazepam (Ativan 2mg/ml 1ml) 1 mg ONCE IV 08/02/19 13:42 08/02/19 15:00 Metoclopramide HCl (Reglan) 10 mg Q8H PRN IVP Nausea & Vomiting 07/26/19 19:15 08/20/19 19:14 Nitroglycerin (Ntg) 1 patch Q24H TDERMAL 07/27/19 06:00 08/19/19 05:59 08/02/19 05:05 Pantoprazole (Protonix) 40 mg BID ORAL 07/27/19 09:00 08/25/19 08:59 08/02/19 09:18 Polyethylene Glycol (Miralax) 17 gm BEDTIME ORAL 07/31/19 21:00 08/30/19 20:59 08/01/19 21:13 Risperidone (RisperDAL) 0.5 mg Q4H PRN ORAL agitation 07/27/19 18:30 08/26/19 18:29 07/30/19 08:36 Sennosides (Senokot) 8.6 mg BIDPRN PRN ORAL Constipation 07/26/19 19:15 08/25/19 19:14 08/01/19 17:40 Sevelamer Carbonate (Renvela) 2,400 mg Q6HR ORAL 07/27/19 00:00 08/22/19 12:59 08/02/19 12:32 Juan Carlos Soto MD Aug 02, 2019 13:46
[2019-08-02 16:00] VITALS: BP 143/70
--- NOTE | 2019-08-02 16:52 | NUR ---
DISCHARGE PLAN [facility] [address] [place] [address] ROOM 721 T: [phone] FOR NURSE TO NURSE REPORT [facility] HAS BEEN ARRANGED FOR 2099 (ESTIMATED TIME DIALYSIS WILL BE COMPLETED)
--- NOTE | 2019-08-02 19:12 | Internal Med Progress Note ---
Subjective Date of Service: Aug 02, 2019 Physician Name Michael Perez Attending Physician Zuhair Singleton MD Current Medications Medications (Trade) Dose Ordered Sig/David Route PRN Reason Start Time Stop Time Status Last Admin Dose Admin Acetaminophen (Tylenol) 650 mg Q4H PRN ORAL Fever 07/26/19 19:15 08/15/19 19:14 Acetaminophen (Tylenol) 650 mg Q4H PRN RECTAL FEVER 07/26/19 19:15 08/15/19 19:14 Bacitracin (Bacitracin 15gm tube) 1 applic THREE TIMES A DAY TOPIC 07/27/19 09:00 08/21/19 08:59 08/02/19 12:34 Carvedilol (Coreg) 12.5 mg EVERY 12 HOURS ORAL 07/31/19 21:00 08/17/19 09:59 08/01/19 21:12 Dextrose (Dextrose 50%) 25 ml Q30M PRN IV Hypoglycemia 07/26/19 19:30 08/15/19 13:59 Dextrose (Dextrose 50%) 50 ml Q30M PRN IV Hypoglycemia 07/26/19 19:30 08/15/19 13:59 Docusate Sodium (Colace) 100 mg THREE TIMES A DAY ORAL 07/27/19 09:00 08/25/19 12:59 08/02/19 12:34 Folic Acid (Folate) 1 mg DAILY ORAL 08/02/19 09:00 09/01/19 08:59 08/02/19 09:18 Heparin Sodium (Porcine) (Heparin 5000 units/ml) 5,000 units EVERY 8 HOURS SUBQ 07/26/19 22:00 08/15/19 13:59 Hydralazine HCl (Apresoline) 10 mg Q4H PRN IV bp over 160 syst 07/26/19 19:15 08/15/19 19:14 Hydralazine HCl (Apresoline) 10 mg Q8HR ORAL 07/31/19 22:00 08/18/19 18:29 08/02/19 05:04 Metoclopramide HCl (Reglan) 10 mg Q8H PRN IVP Nausea & Vomiting 07/26/19 19:15 08/20/19 19:14 Nitroglycerin (Ntg) 1 patch Q24H TDERMAL 07/27/19 06:00 3/1/20 05:59 08/02/19 05:05 Pantoprazole (Protonix) 40 mg BID ORAL 07/27/19 09:00 08/25/19 08:59 08/02/19 09:18 Polyethylene Glycol (Miralax) 17 gm BEDTIME ORAL 07/31/19 21:00 08/30/19 20:59 08/01/19 21:13 Risperidone (RisperDAL) 0.5 mg Q4H PRN ORAL agitation 07/27/19 18:30 08/26/19 18:29 07/30/19 08:36 Sennosides (Senokot) 8.6 mg BIDPRN PRN ORAL Constipation 07/26/19 19:15 08/25/19 19:14 08/01/19 17:40 Sevelamer Carbonate (Renvela) 2,400 mg Q6HR ORAL 07/27/19 00:00 08/22/19 12:59 08/02/19 12:32 Allergies: Coded Allergies: LISINOPRIL (Verified Allergy, Severe, Shortness of Breath, 07/02/19) THROAT SWELLS UP PENICILLINS (Verified Allergy, Severe, throat swelling, 07/17/19) tolerated Ancef x1 07/16/19 Uncoded Allergies: shellfish (Allergy, Severe, 02/06/19) shortness of breath, vomiting, throat swelling ROS Limited/Unobtainable: No Constitutional: Reports: no symptoms HEENT: Reports: no symptoms Cardiovascular: Reports: no symptoms Respiratory: Reports: no symptoms Gastrointestinal/Abdominal: Reports: no symptoms Genitourinary: Reports: no symptoms Neurologic/Psychiatric: Reports: no symptoms Subjective 49 YO M admitted for scrotal fistulotomy. S/P cardiac arrest. Self extubated . Cover for Int tim-Dr Singleton. Less confused; more alert. MRI postponed due to patient movement in scanner Objective Last Vital Signs Date Time Temp Pulse Resp B/P (MAP) Pulse Ox O2 Delivery O2 Flow Rate FiO2 08/02/19 12:00 97.5 84 20 143/74 (97) 96 08/02/19 09:00 Room Air 08/02/19 08:25 21 07/26/19 20:00 2.0 Intake and Output 08/01/19 08/02/19 19:00 07:00 Intake Total 840 ml 120 ml Output Total 1 ml Balance 839 ml 120 ml Intake Oral 840 ml 120 ml Output Urine Total 1 ml # Voids 1 # Bowel Movements 1 1 Objective PHYSICAL EXAMINATION: GENERAL: The patient is well-developed well-nourished male, intubated and sedated in the intensive care unit. CHEST: nasal canula; Diffuse coarse breath sounds bilaterally without wheezes CARDIOVASCULAR: Regular rhythm and rate. S1, S2 are normal without murmurs, rubs, or gallops. ABDOMEN: Soft, nontender, nondistended. Positive bowel sounds. No evidence of hepatosplenomegaly. Currently, no rebound or guarding noted. EXTREMITIES: Negative for clubbing, cyanosis, edema. NEUROLOGIC: Unable to assess. Assessment/Plan Assessment/Plan ASSESSMENT: This is a 49-year-old male. 1. Scrotal fistula. 2. Status post cardiac arrest. 3. Renal failure. 4. Hypertension. 5. Gout. 6. End stage renal disease on hemodialysis. 7. Cardiomyopathy 8. Systolic CHF 9. dysphagia 10. Altered mental status=anoxic encephalopathy TREATMENT: 1. Scrotal fistula. Surgery was aborted on 07/16/2019. Follow recommendations of Surgery, Dr. Galloway. 2. Status post cardiac arrest. The patient is S/P self-extubation 07/18/19. A Cardiology consultation has been obtained with Dr. Emmanuel Cortés. Follow recommendations of Cardiology. 3. End stage renal disease. A Nephrology consultation has been obtained with Dr. Daniel Delgadillo. Hemodialysis 07/22/19. Follow recommendations of Nephrology. 4. Hypertension. 5. Gout. 6. PATRICK status 7. Failed swallow eval-patient pulled out NGT. GI=Dr Delarosa 8. Calorie count in progress 9. See Neurology consult=Dr Patel 10. Await MRI brain 11. Discharge planning: [facility] Michael Perez MD Aug 02, 2019 19:12
--- NOTE | 2019-08-02 19:30 | NUR ---
NURSE NOTES: Received report from JOCE Mitchell. Patient is asleep, arousable to voice, lying in semi stevenson's; resting comfortably. A/Ox1. No signs of pain nor acute distress noted. Checked IV site and flushed. No erythema, bleeding or infiltration noted. On bilateral soft wrist restraints with good circulation, mobility and skin is intact. Bed at lowest position, brakes on, [id number]. Call light within reach. Will continue to monitor. Addendum: 08/03/19 at 0353 by Jaki Suh RN IV site removed by JOCE Mitchell.
--- NOTE | 2019-08-02 19:30 | NUR ---
NURSE NOTES: Called report to [facility] and spoke to Temo. Also advised about pt DC today. IV was taken off as well as tele monitor.
--- NOTE | 2019-08-02 19:35 | NUR ---
HAND-OFF: Report given to Jaki/deidre pt in stable condition.
[2019-08-02] MEDS ORDERED: APRESOLINE10 MG ORAL (19:56)
[2019-08-02] MEDS ORDERED: ACETAMINOPHEN325 M1 ORAL (19:56)
[2019-08-02] MEDS ORDERED: RISPERDAL1 MG ORAL (19:56)
[2019-08-02] MEDS ORDERED: NTG1 PATCH TDERMAL (19:56)
[2019-08-02] MEDS ORDERED: COREG12.5 MG ORAL (19:56)
[2019-08-02] MEDS ORDERED: HEPARIN SO5000 UNIT2 SUBQ (19:56)
[2019-08-02] MEDS ORDERED: RENVELA0.8 GM ORAL (19:56)
[2019-08-02] MEDS ORDERED: PANTOPRAZOLE SO40 MG ORAL (19:56)
[2019-08-02] MEDS ORDERED: FOLIC ACID1 MG ORAL (19:56)
[2019-08-02 20:00] VITALS: BP 135/77
--- NOTE | 2019-08-02 20:20 | Cardiology Progress Note ---
Assessment/Plan Assessment/Plan 1. Status cardiac arrest, asystolic in origin. 2. Reported history of dilated cardiomyopathy that had improved in October 2018. 3. Hypertension, poorly controlled. 4. Hyperlipidemia. 5. End-stage renal disease, on hemodialysis. 6. History of systolic heart failure previously. 7. Lisinopril and penicillin allergy. 8. Diabetes mellitus. 9. Secondary hyperparathyroidism. 10. History of asthma. 11. Anemia, secondary to end-stage renal disease. 12. post arrest evidence for cardiomyopathy resolved on echo 07/27/2018 c/w takatsubos cm minro trop abn with out a peak or lorri to suggest acs an in della settign of renal failure is not specific tele personally reviewed labs noted bp increased cannot take acei due to allergy s/p dialysis now olanned 1 liter uf dvt ppx heparin rn reported on initial admission to icu pt with food vomit post arrest , aspiration may be a possibility ? Isordil and hydralazine for cm echo on 07/27/2019 showed sig improvement of cm suggestive of takotsubo cardiomyopathy neuro zapata poor await mri tele sinus Subjective ROS Limited/Unobtainable: Yes Subjective confused , restless Objective Last 24 Hour Vital Signs Date Time Temp Pulse Resp B/P (MAP) Pulse Ox O2 Delivery O2 Flow Rate FiO2 08/02/19 16:00 97.3 85 20 143/70 (94) 94 08/02/19 12:00 97.5 84 20 143/74 (97) 96 08/02/19 12:00 91 08/02/19 09:00 Room Air 08/02/19 08:25 84 19 95 Room Air 21 08/02/19 08:00 97.5 84 20 143/74 (97) 95 08/02/19 08:00 83 08/02/19 05:05 148/83 08/02/19 05:04 148/83 08/02/19 04:00 78 08/02/19 04:00 97.3 80 16 148/83 (104) 97 08/02/19 00:00 79 08/02/19 00:00 97.3 80 16 152/77 (102) 95 08/01/19 21:12 150/80 08/01/19 21:12 84 150/80 08/01/19 21:00 Room Air General Appearance: no apparent distress Neck: supple Cardiovascular: normal rate Respiratory/Chest: lungs clear Abdomen: non tender, soft Extremities: no swelling Intake and Output 08/01/19 08/02/19 19:00 07:00 Intake Total 840 ml 120 ml Output Total 1 ml Balance 839 ml 120 ml Intake Oral 840 ml 120 ml Output Urine Total 1 ml # Voids 1 # Bowel Movements 1 1 Emmanuel Cortés MD Aug 02, 2019 20:20
--- NOTE | 2019-08-02 20:45 | NUR ---
NURSE NOTES: Follow up [facility] for hand picker ETA 2200. [facility] Charge nurse made aware.
--- NOTE | 2019-08-02 20:50 | NUR ---
NURSE NOTES: [facility] [place] [facility] informed [facility] at 2200. Charge nurse made aware.
[2019-08-02] MEDS: Miralax 17gm pkt ORAL SCH (21:00)
--- NOTE | 2019-08-02 21:30 | NUR ---
NURSE NOTES: EEG done per tech.
--- NOTE | 2019-08-02 22:00 | NUR ---
NURSE NOTES: [facility] ambulance arrived for grape picker. Report given to EMT. Bilateral soft wrist restraints removed. [facility] via draw sheet method with 2 EMT and 2 staff member assist, without any incident. Vital signs stable HR=95, RR=18, BP 145/7m9, O2 sat=96%. Patient is in stable condition. No signs of pain nor acute distress noted. Addendum: 08/03/19 at 0352 by Jaki Suh RN Discharge packet and instructions given to whale fisherman. Handed patient's belongings to patient. Patient unable to sign belongings check list.
--- NOTE | 2019-08-02 22:10 | NUR ---
NURSE NOTES: Patient left the hospital via gurney accompanied by 2 grain sacker, without any incident. No signs of acute distress noted. Notified [facility] and spoke with JOCE Fair that patient left the hospital. Called family member, Tra Cast () and informed that patient left the hospital and was transferred to [facility].
--- NOTE | 2019-08-03 01:15 | Progress Note ---
DATE: 08/02/2019 SUBJECTIVE: The patient is having waxing and waning consciousness, confused, disoriented anxiety. MENTAL STATUS EXAMINATION: Alert and oriented x1. Mood is neutral. Affect is flat. Thought process is concrete. Thought content, no suicidal or homicidal ideation. ASSESSMENT: Cognitive impairment. PLAN: Continue current psychotropic medications. Rc Perdomo M.D. DR: Franchesca JOB#: [id number] CC: FRANKO
--- NOTE | 2019-08-03 01:45 | Electroencephalogram ---
DATE OF PROCEDURE: 08/02/2019 REQUESTING PHYSICIAN: Dr. Michael Perez. READING PHYSICIAN: Ike Patel M.D. PROCEDURE PERFORMED: Electroencephalogram. HISTORY: This EEG was performed on a 49-year-old gentleman, who while having a surgical procedure performed, had a cardiac arrest. It took approximately 14 minutes before a pulse and blood pressure could be obtained. The purpose of this EEG was to evaluate the patient for the degree and type of cerebral dysfunction. TECHNICAL NOTE: This EEG was performed on a [employer] with electrodes placed on the scalp according to the International 10-20 system. [id number] and [id number] montages were used. The EEG was technically satisfactory and was performed in the awake and drowsy states. OBSERVATIONS: During most of the tracing, the patient was drowsy with a background in the 4-5 Hz theta and 1.5-2.5 Hz delta range. Brief periods of wakefulness were associated with a large amount of EMG artifact and a background in the 5-6 Hz theta range. No definite focal abnormalities or epileptiform discharges were seen. IMPRESSION: This is an abnormal EEG characterized by slowing of the background in the 5-6 Hz theta range in the awake state. COMMENT: This study is consistent with an encephalopathy of a moderate degree. In this case, the encephalopathy is most probably of an anemic/hypoxic nature. Ike Patel M.D., M.S.P.H. Clinical Neurophysiologist DR: MUNDO JOB#: [id number] MTDTrish
--- NOTE | 2019-08-06 13:23 | Discharge Summary ---
Discharge Summary Discharge Summary _ DATE OF ADMISSION: 07/16 DATE OF DISCHARGE: 08/02/2019 DISCHARGED BY: Dr. iSngleton REASON FOR ADMISSION: 49 years old male with past medical history of hypertension, end-stage renal disease, on hemodialysis, diabetes mellitus, gout, colon polyps, status post colonoscopy in April 2019, had a scrotal wound and was evaluated as outpatient by surgeon. Patient was scheduled for incision and drainage of scrotal abscess and possible fistulotomy on 07/16/2019. CONSULTANTS: settlement processor Dr. Cortés neurologist Dr. Patel pulmonary/search engine optimization specialist Dr. Soto ID specialist Dr. Hyatt GI specialist Dr. Delarosa computer sciences professor Dr. Delgadillo surgery Dr. Galloway [facility]: Procedure was aborted secondary to asystole and cardiovascular event , that occured during the procedure. Patient was intubated and transferred to ICU for further management. Ventilator support and pulmonary toilet provided. Pain management was addressed. Patient was on empiric antibiotics. Patient self extubated himself on 07/18. Supplemental oxygen provided and titrated to keep pulse oximetry above 92%. Pulmonary toilet provided. Dialysis provided as per computer sciences professor recommendations with close monitoring of volumes and cardiorenal parameters. Echocardiogram revealed ejection fraction of 20 to 25% , elevated left atrial pressure grade 2. Carotid duplex showed less than 50% stenosis bilaterally. Guideline directed medical therapy with beta-kaley, Isordil and hydralazine provided ( Patient allergic to YELENA inhibitor). Troponin was minimally elevated. Per settlement processor, troponin elevation was nonspecific and not suggestive of acute coronary syndrome , possibly was due to cardiac arrest. As mentioned above, attempted procedure was aborted due to cardiac event. Biopsy s of scrotal lesion showed ruptured epidermal inclusion cyst with associated abscess formation. Patient completed antibiotic while in the hospital. DVT and GI prophylaxis provided. Hemoglobin and hematocrit were closely monitored with goal to keep hemoglobin above 7. Anemia work-up was consistent with anemia of chronic disease. Stool for occult blood was negative. Prior to discharge hemoglobin 10.9 , hematocrit 33.1. Hemoglobin A1c at goal 4.7. Patient was working with physical therapist. Fall precaution maintained. Swallow evaluation revealed significant oropharyngeal dysphagia . Diet texture provided as per speech therapist recommendation . Total assistance with meals provided at all times with strict aspiration precaution. Patient received treatment for probable aspiration pneumonia. Antibiotic provided as per ID specialist recommendation. Supplemental oxygen titrated to keep pulse oximetry above 90% . Bronchodilator therapy and CPT provided . Patient was followed-up with a chest x-ray. Patient completed antibiotic treatment. Patient was then monitored off antibiotic and remained stable. Wound care provided as per surgeon recommendation . wound care much improved with 100% granulation tissue. Continue wound care at the facility. Patient clinically stabilized and was ready for transfer to [facility] for further management. FINAL DIAGNOSES: Probable aspiration pneumonia, status post treatment Status post cardiac arrest, asystolic/during surgical procedure Acute respiratory failure , requiring intubation, self extubated 07/18 Cardiomyopathy , with EF 20-25% CHF with systolic dysfunction Scrotal wound/ruptured epidermal inclusion cyst with associated abscess formation End-stage renal disease, on hemodialysis History of hypertension Hyperlipidemia Diabetes mellitus Dysphagia Anemia of chronic renal disease Altered mental status due to encephalopathy Asthma DISCHARGE MEDICATIONS: See Medication Reconciliation list. DISCHARGE INSTRUCTIONS: Patient was discharged to [facility] for further management. Kala Urbina NP Aug 06, 2019 13:23
== END 2019-08-02 22:07 | disposition short-term general hospital (02) | DRG 606 ==
LOC: SUR 07:14 → ICU 13:37 → 2W 07-20 01:20 → 2E 07-26 18:43
DX: L72.0 Epidermal cyst (principal); N18.6 End stage renal disease; J69.0 Pneumonitis due to inhalation of food and vomit; I49.01 Ventricular fibrillation; J96.00 Acute respiratory failure, unspecified whether with hypoxia or hypercapnia; I47.2 Ventricular tachycardia; I97.711 Intraoperative cardiac arrest during other surgery; I13.2 Hypertensive heart and chronic kidney disease with heart failure and with stage 5 chronic kidney disease, or end stage renal disease; I50.22 Chronic systolic (congestive) heart failure; N49.2 Inflammatory disorders of scrotum; S31.30XA Unspecified open wound of scrotum and testes, initial encounter; N50.89 Other specified disorders of the male genital organs; E11.22 Type 2 diabetes mellitus with diabetic chronic kidney disease; Z99.2 Dependence on renal dialysis; K62.89 Other specified diseases of anus and rectum
CPT/HCPCS: 36415; 36600; 71045; 74018; 80048; 80053; 80061; 80076; 80162; 82150; 82270; 82550; 82607; 82728; 82746; 82803; 82977; 83036; 83540; 83550; 83605; 83690; 83735; 83880; 84100; 84132; 84439; 84443; 84484; 84550; 85007; 85025; 85044; 85610; 85651; 85730; 86140; 86706; 87081; 93005; 93306; 93880; 94002; 94003; 94150; 94664; 95819; J0171; J2405; J2765; J7030; J7620